=== PATIENT | male | born 1945 | race Caucasian/White ===

== ENCOUNTER 2019-09-06 21:09 | Emergency (ER) | payer OTHER, SELFPAY ==
[2019-09-06 21:10] VITALS: BP 161/73; PULSE 68; RESP 18; TEMP 36.2; O2SAT 96; BMI 34.2
--- NOTE | 2019-09-06 22:02 | ED.VISSUMM ---
- ER Visit Summary Date of Service: 09/06/19 Chief Complaint: Foreign body left ear History of Present Illness: The patient is a 74 M history of stroke and coronary disease with a stent. Patient uses hearing aids. He was changing his hearing aid and a piece of the hearing aid stayed in the ear canal. They were unable to get out and he came in the emergency department to have it removed. He denies any pain. Physical Examination: Male coming by his vital signs stable afebrile. H EENT exam unremarkable except left ear canal has a piece of rubber clear that appears to be piece of the hearing aid. The canal otherwise unremarkable. Otherwise exam is unremarkable. Lungs are clear. Heart regular rhythm. Abdomen soft nontender. He is moving all 4 extremities. Test Results: None Emergency Department Course and Treatment: Left ear foreign body. I tried to irrigate it out but the foreign body was either rubber or plastic and it basically had holes in it and fluids would not push it out. I then tried to grab it with forceps and was unable to do so. I was able to get an ear spoon on top of the foreign body was able to pull it out. Patient tolerated procedure well. There was a small amount of blood in his canal there appear to be from the wall of the ear canal. The eardrum was unremarkable. No perforation was seen. Treatment Plan: Follow-up with his doctor as needed. Watch for any signs of infection. Disposition: Discharge Impression: Left ear canal foreign body (rubber piece of a hearing aid) removed by ER physician This note was generated with [employer] dictation software. It may contain incorrect words, spelling, and punctuation that were not noted in review of the chart prior to signing ED Disposition - Plan for ED Patient: [facility] -
--- NOTE | 2019-09-06 22:04 | ED.DEP ---
ED Disposition - Plan for ED Patient: Disposition: Home or Assisted Living [facility] [Primary Care Provider] - As Needed Additional Instructions: Watch for any signs of infection such as redness, swelling or discharge. If these develop return or follow-up with your doctor.
[2019-09-06 22:23] VITALS: RESP 16
== END 2019-09-06 22:32 | disposition home or self-care (01) ==
LOC: ED 22:28
PROVIDERS: Emergency Provider Emergency Medicine
DX: T16.2XXA Foreign body in left ear, initial encounter (principal); Z86.73 Personal history of transient ischemic attack (TIA), and cerebral infarction without residual deficits; Z95.5 Presence of coronary angioplasty implant and graft; I25.10 Atherosclerotic heart disease of native coronary artery without angina pectoris; W45.8XXA Other foreign body or object entering through skin, initial encounter; Y92.9 Unspecified place or not applicable; Y99.9 Unspecified external cause status
CPT/HCPCS: 99282

== ENCOUNTER 2020-01-10 10:44 | Emergency (ER) | payer OTHER, SELFPAY ==
[2020-01-10 10:45] VITALS: BP 146/69; PULSE 89; RESP 18; TEMP 35.7; O2SAT 96; BMI 35.9
--- NOTE | 2020-01-10 11:40 | ED.VIS.GEN ---
History of Present Illness <KayLane - Last Filed: 01/10/20 12:15> Informant: Patient, Significant Other Onset: Days - 2 days Context: Gradual Onset Timing: Continuous Quality: aching Location: roof of mouth Current Severity: Moderate Maximum Severity: Severe Worsened by: eating Relieved by: nothing Associated Symptoms: dental pain Narrative: 74-year-old male history of coronary artery disease and aortic valve replacement currently on Coumadin presents to the emergency department with pain and swelling on the roof of his mouth. He is also having pain in his teeth. He is concerned for an infection. He has no fever he has not had any difficulties breathing or swallowing or any difficulties opening closing his mouth. No trauma. Denies any other review of systems at this time. Denies vomiting or diarrhea Prior similar symptoms: No Recent Illness/Hospitalization: No <Iker Singh - Last Filed: 01/10/20 12:19> Chief Complaint: Edema Past Medical History <KayLane - Last Filed: 01/10/20 12:15> Past Medical History: - - Coronary artery disease, aortic valve replacement, hypertension, hyperlipidemia, anticoagulation therapy Surgical History: cholecystectomy, - - Aortic valve surgery 2001 Lives: With Family Smoking Status: Former smoker Alcohol: None Drugs: None - Family History Paternal Family History: Reports: Cancer, Diabetes Additional Family History: no FH for kidney disease <Iker Singh - Last Filed: 01/10/20 12:19> - Allergies and Home Meds Allergies/Adverse Reactions: Allergies hydrocodone bitartrate [From Vicodin] Allergy (Verified 01/10/20 10:46) Other Primary Care Physician: [facility] [Primary Care Provider] - Review of Systems All systems negative except as indicated General: Denies: Chills, Fever, Sweats Eyes: Denies: Visual changes - bilaterally, Diplopia ENT: Reports: - - dental pain. Denies: Rhinorrhea, Sore throat Cardiovascular: Denies: Chest pain, Palpitations Respiratory: Denies: Dyspnea, Cough, Dyspnea on exertion Gastrointestinal: Denies: Abdominal pain, Nausea, Vomiting, Diarrhea, Melena, Hematochezia Genitourinary: Denies: Dysuria, Hematuria, Frequency Musculoskeletal: Denies: Back pain, Extremity Pain Skin: Denies: Rash, Wounds Neurological: Denies: Headache, Weakness, Numbness <Iker Singh Last Filed: 01/10/20 12:19> Physical Exam Vital Signs/Narrative: Vital Signs Temp Pulse Resp BP Pulse Ox 01/10/20 10:45 96.3 F L 89 18 146/69 H 96 <Lane Villanueva - Last Filed: 01/10/20 12:15> Vital Signs/Narrative: Vital Signs Temp Pulse Resp BP Pulse Ox 01/10/20 10:45 96.3 F L 89 18 146/69 H 96 Inital Vital Signs reviewed: Yes General: Well nourished, Well developed, No Acute Distress Head: Normocephalic, Atraumatic Eyes: Perrl, EOMI ENT: Moist mucous membranes, No rhinorrhea, - - Patient has what appears to be an early abscess on the roof of his mouth. It is not fluctuant. He does have widespread dental decay. No focal dental abscess. No sublingual edema or trismus. He has a normal voice and no drooling. Neck: Supple, Nontender Cardiovascular: Regular rate, Regular rhythm, No murmurs Respiratory: No distress, CTA bilaterally, Chest nontender Abdomen: Soft, Nontender, Nondistended, Normal bowel sounds Back: Nontender, Normal Inspection Extremities: Nontender, No edema Skin: Normal color, No rash Neurological: Alert, Oriented x3, Cranial nerves II-XII grossly intact, Normal Strength, Normal Sensation Psychological: Normal affect, Normal Mood <Iker Singh - Last Filed: 01/10/20 12:19> Diagnostic/Tx/Re-eval - Medical Decision Making I supervised the PA and have performed my own pertinent history and physical. Results and treatment plan were discussed. HPI: Patient complains of pain and swelling to the roof of his mouth began 2 days ago. States that he is having dental pain as well. He is taken gabapentin without relief. He has a history of an mechanical aortic valve and is on Coumadin. Reports that his INR on Monday was 2.3. PE: Vitals: Stable. Afebrile. Mouth: No trismus. No edema of the floor of the mouth. Pain with percussion of right maxillary central incisor. There is soft tissue swelling to the roof of his mouth, but no focal abscess. He also has mild swelling to his right cheek. General: A&O x 3. NAD. Cardiovascular exam: Regular rate and rhythm with a 2 out of 6 stock murmur mechanical valve click. Respiratory exam: Clear to auscultation bilaterally. No wheezes or stridor. Abdominal exam: Soft, nontender, nondistended, normal bowel sounds. No peritoneal signs. Extremity: No clubbing, cyanosis, or edema. Emergency Department course: Patient was treated with [place] and penicillin. Treatment Plan: Patient will be discharged on [place] and penicillin. Instructed to hold his Coumadin for the next 2 days. Get his INR measured again on Monday and speak with his doctor about further dosing of his Coumadin. Follow-up with his dentist as soon as possible. This note was generated with [employer] dictation software. It may contain incorrect words, spelling, and punctuation that were not noted in review of the chart prior to signing. <Lane Villanueva - Last Filed: 01/10/20 12:15> Laboratory Tests 01/10/20 Range/Units 11:55 PT 30.0 H (11.7-14.9) SECONDS INR 2.9 <Iker Singh - Last Filed: 01/10/20 12:19> ED Disposition <Lane Villanueva - Last Filed: 01/10/20 12:15> <Iker Singh - Last Filed: 01/10/20 12:19> - Plan for ED Patient: Disposition: Home or Assisted Living Diagnosis: Dental abscess, Hx of aortic valve replacement, mechanical, Anticoagulation monitoring, INR range 2.5-3.5 Instructions: ED ABSCESS DENTAL Prescriptions: Penicillin V Potassium 500 mg PO 4X/DAY #40 tab Prescription Printed Oxycodone HCl/Acetaminophen [Percocet 5/325] 1 tab PO Q6H PRN PRN 3 Days #12 tab PRN Reason: Pain Prescription Printed Referrals: [facility] [Primary Care Provider] - 01/13/20 Additional Instructions: Please follow-up with your doctor at the [facility] Monday for a recheck of your INR for your Coumadin level. Please do not take your Coumadin today which is Monday or Monday. Please resume your normal dose starting Monday.
[2020-01-10] MEDS: oxyCODONE 5 MG Tablet PO (11:54)
[2020-01-10 12:08] LABS: International Normalized Ratio 2.9
[2020-01-10 12:34] VITALS: BP 147/62; PULSE 68; RESP 18; O2SAT 93
== END 2020-01-10 12:41 | disposition home or self-care (01) ==
PROVIDERS: Emergency Provider Physician Assistant Medical
DX: K04.7 Periapical abscess without sinus (principal); Z79.01 Long term (current) use of anticoagulants; Z95.2 Presence of prosthetic heart valve; E78.5 Hyperlipidemia, unspecified; I10 Essential (primary) hypertension; I25.10 Atherosclerotic heart disease of native coronary artery without angina pectoris; Z87.891 Personal history of nicotine dependence; Z88.5 Allergy status to narcotic agent; Z90.49 Acquired absence of other specified parts of digestive tract
CPT/HCPCS: 85610; 99283

== ENCOUNTER → 2020-01-13 12:04 | Outpatient (CLI) | payer OTHER, SELFPAY ==
[2020-01-10 10:45] VITALS: BMI 35.9
== END ==
PROVIDERS: Referring Provider Physician Assistant Medical; Visit Provider Physician Assistant Medical
DX: M47.26 Other spondylosis with radiculopathy, lumbar region (principal)

== ENCOUNTER 2020-02-17 13:30 | Outpatient (RCR) | payer OTHER, SELFPAY ==
--- NOTE | 2020-01-13 13:48 | HP.PTEVAL_ITS ---
Patient's Visit Information EDDIE KHALIL is a 74 year old M referred to Physical Therapy by GUIDO VAZQUEZ with a diagnosis of LUMBAR RADICULOPATHY. Date of Evaluation: 01/13/20 Physical Therapist: Leobardo Enriquez, PT, Cert MDT, OCS - Visit Plan Frequency: 2x /Week Duration: 7WEEKS Plan: PT INTERVENTIONS AQAUTIC THERAPY FOR LUMBAR ROM,LE STRENGTHENING/ROM ,DLS ABD/BACK ,POSTURAL EX'S - Subjective This 74 y/o male presents to physical theerapy lumbar radiculopathy. Patient has had lumbar pain with radicular symptoms many year. Patient seen DR recommended PT with DJD and severe osteopenia along with hip left OA. Location of back pain left LS region. Aggraveting factors elevation of chair,extended walkking,bending lifting,standing. Alleviating factors rest. Patient has seen pain management recommeded pain MEDS.Bowel/bladder -.Coughing/sneezing -. Denies parathesia/tingling-. Patient symptoms affects ADLS' and housework tasks. Patient symptoms affects QOL. SOCAIL: . VOCATION: retired - Pain Left Back Pain Intensity (Out of 10): 6 Pain Intensity Range: 10 Left Hip Pain Intensity (Out of 10): 10 Pain Intensity Range: 10 Comment: walking - Objective POSTURE: mild foward posture hip/knees ,mild/mod thoracic kyphosis. GAIT: reciprocal apttern antalgic gait mild foward posture. NEURO: denies parathesia/tingling,reflexes L3-4,L4-5,L5-S1 1/3. SYMMTRIES: align. PALPATION: tendeR L-S. AROM: hip flexion 90 degrees ,IR 0 degrees,ER 25 degrees, hip abd 30 degrees. MMT: quads/hams 4-/5,hip abd 3+/5,hip flexion 3+/5 ankle 4/5. LUMBAR ROM: flexion mod loss,extension mod/severe,side glides mod loss. FLEXABILITY: hams mod tight - Special Tests L/S Slump test left side: Negative L/S Slump test right side: Negative L/S Left Straight Leg Raise: Negative L/S Right Straight Leg Raise: Negative - Goals Goal 1:: Patient to be I with Aquatic PT Goal Time Frame: 4-6 Weeks Goal 2:: Patient to inmprove lumbar ROM for function of recovery. Goal Time Frame: 4-6 Weeks Goal 3:: Patient to decrease lumbar and leg pain by 50% or > to improve function with walking. Goal Time Frame: 4-6 Weeks Goal 4:: Patient increase quads/hams 4/5 and hip stength to 4-/5 to improve function. Goal Time Frame: 4-6 Weeks Goal 5:: Patient to improve back owestry score by 5 points or > to improve QOL. Goal Time Frame: 4-6 Weeks - Rehabilitation Potential Physical Therapy Diagnosis: Patient has lumbar pain with radiculaopathy along with hip DJD and osteoprosis and h/o bilateral hip ORIF with pain ,impaired gait ,decrease lumbar ROM,weakness in legs thus benifit from skilled PT Rehabilitation Potential: Good - Anticipated Interventions Patient/Client Instruction: Educate patient on: Condition, Plan of Care For the Purpose of:: To decrease pain, To increase ROM, To improve muscle performance and motor function, To increase tolerance to activity/condition/position, To improve performance and independence with ADL's, To improve ability of physical actions for home/community/work/leisure, To improve gait and locomotor functions, To improve health of tissue, To decrease soft tissue restriction, To increase flexibility/ROM, To reduce risk of r ecurrence, To improve health and function, To improve ability to perform tasks related to life management Therapeutic Exercise to Include: Strength training, Endurance training, Balance training, Postural training, Flexibilty training, In an aquatic setting, Passive ROM, Active ROM, Dynamic Lumbar Stabilization For the Purpose of:: To decrease pain, To increase ROM, To improve muscle performance and motor function, To improve ability to perform ADL's, To increase tolerance to activity/condition/position, To improve ability of physical actions for home/community/work/leisure, To improve gait and locomotor functions, To improve health of tissue, To decrease soft tissue restriction, To increase flexibility/ROM, To improve endurance, To improve balance, To improve ability to perform tasks related to life management Thank you for the opportunity to evaluate your patient. For Medicare and Medicare HMO plans, please review the plan of care and approve it. It will need to be FAXED BACK to us at [phone] for Medicare purposes. For Medicare only, by signing this I certify the plan of care. Please let me know if there are questions or concerns regarding this plan of care. Physician Signature: Date:
--- NOTE | 2020-02-17 14:06 | HP.PTDCSUM ---
It has been my pleasure to treat EDDIE KHALIL referred by GUIDO VAZQUEZ, with the diagnosis of LUMBAR RADICULOPATHY for a total of 11 visit(s). Discharge Date: 02/17/20 Please see the following information for a summary of their discharge status. Subjective: Patient said Water ex;s caused pain in left hip.Plan to RTD.. Patient reports back pain is alot better. Pain management in [facility]. Able to stand longer Left Back Pain Intensity (Out of 10): 0 Left Hip Pain Intensity (Out of 10): 6 % Improvement: 50 Objective/Function: POSTURE: mild foward posture. GAIT: anatalgic gait decrease stance time LLE. NEURO: denies parathesia/tingling. MMT: quads/hams 4/5 ,anklle 4/5,hip flexion 4-/5,hip abd 3+/5. LUMBAR ROM: FLEXION MIN/MOD LOSS,EXTENDION MOD LOSS Goal 1:: Patient to be I with Aquatic PT Goal Progress: Goal Met Goal 2:: Patient to inmprove lumbar ROM for function of recovery. Goal Progress: Goal Met Goal 3:: Patient to decrease lumbar and leg pain by 50% or > to improve function with walking. Goal Progress: Progressing Goal 4:: Patient increase quads/hams 4/5 and hip stength to 4-/5 to improve function. Goal 5:: Patient to improve back owestry score by 5 points or > to improve QOL. Goal Progress: Progressing Plan: D/C TO [facility]. PATIENT HAS MORE CONCERNED WITH HIP Discharge Comments: rtd If there are questions or concerns regarding this patient's physical therapy, please feel free to call me at [phone]. Thank you for the referral of this patient. Sincerely, Leobardo Enriquez, PT, Cert MDT, OCS
== END 2020-02-17 19:00 | disposition home or self-care (01) ==
LOC: PT 13:30
DX: M47.26 Other spondylosis with radiculopathy, lumbar region (principal)
CPT/HCPCS: 97113; 97162; 97530

== ENCOUNTER 2022-07-09 23:13 | Emergency (ER) | payer OTHER, SELFPAY ==
--- NOTE | 2022-07-09 00:30 | RAD_ITS ---
STUDY: X-RAY CHEST REASON FOR EXAM: Male, 76 years old patient with cough. TECHNIQUE: PA and lateral views of the chest. COMPARISON: CT of the chest dated April 03, 2016. FINDINGS: The patient has had a sternotomy. Lungs are hyperexpanded. There is prominence of bronchovascular markings. There is no demonstrated pleural abnormality. There is mild cardiac enlargement. Patient has cardiac valve prosthesis. Normal mediastinum and cata. Normal visualized pulmonary arteries. There is atherosclerotic calcification of the aortic arch with tortuosity. There is demineralization of the osseous structures. 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 There is degenerative arthropathy of the left shoulder. There is no demonstrated abnormality of the visualized soft tissue structures of the upper abdomen. RAD/Chest PA and Lateral IMPRESSION: Cardiomegaly and mild pulmonary congestion. Electronically Signed: Arianna Brown MD at 1:26 EST ,
[2022-07-09 23:14] VITALS: BP 153/77; PULSE 86; RESP 24; TEMP 37.1; O2SAT 93; BMI 36.2
[2022-07-09 23:16] VITALS: BP 153/77; PULSE 86; RESP 24; TEMP 37.1; O2SAT 93
[2022-07-09 23:50] VITALS: PULSE 90; RESP 20; RESP 24; O2SAT 92
[2022-07-09] MEDS: Ipratropium/Albuterol Sulfate 3 ML AMPUL.NEB INHALATION (23:50)
[2022-07-10 00:21] LABS: Absolute Lymphocyte Count 0.79 X10^3/uL (0.83-4.51); Absolute Neutrophil Count 8.4 X10^3/uL (2.0-7.7); Basophil# 0.12 X10^3/uL; Basophil% 1.2 % (0-1); Eosinophil# 0.09 X10^3/uL; Eosinophils% 0.9 % (0-5); Hematocrit 41.7 % (40-54); Hemoglobin 13.3 g/dL (13.0-16.5); Lymphocyte # 0.79 X10^3/ul (0.83-4.51); Lymphocyte % 7.6 % (19-41); Mean Corp Hgb Conc 31.9 g/dL (32-36); Mean Corpuscular Hgb 28.4 pg (27.0-32.0); Mean Corpuscular Volume 89.1 fL (80-94); Mean Platelet Vol. 10.8 fl (6.2-12.0); Monocyte# 0.47 X10^3/uL; Monocyte% 4.5 % (0-10); NRBC Flagged by Analyzer 0 % (0-5); Neutrophil # 8.43 X10^3/uL (2.7-7.7); Neutrophil % 81.4 % (47-70); Platelet Count 176 K/mm3 (150-450); RBC Distribution Width CV 15.9 % (11.6-14.6); RBC Distribution Width SD 52.7 fl (35.1-43.9); Red Blood Count 4.68 M/mm3 (4.6-6.2); White Blood Count 10.4 K/mm3 (4.4-11.0)
[2022-07-10 00:31] LABS: International Normalized Ratio 2.2; Prothrombin Time (Protime)PT. 23.9 SECONDS (11.7-14.9)
[2022-07-10 00:43] LABS: Anion Gap 7 (5-15); BUN 11 mg/dL (7-18); BUN/Creat Ratio 14.1 RATIO (10-20); Calcium,Total 8.7 mg/dL (8.5-10.1); Chloride 102 mmol/L (98-107); Creatinine, Serum 0.78 mg/dL (0.70-1.30); EST Glomerular Filtration Rate 103 mL/min (>60); Est Glom Filt Rate - Afr Amer 125 mL/min (>60); Estimated Creatinine Clearance 64.89 ml/min; Glucose 100 mg/dL (74-106); Magnesium 1.7 mg/dL (1.6-2.6); Potassium 4.3 mmol/L (3.5-5.1); Sodium Level 137 mmol/L (136-145)
[2022-07-10 00:45] LABS: BNP,B-Type NATRIURETIC PEPTIDE 216.2 pg/mL (0-100)
--- NOTE | 2022-07-10 03:21 | EDS_ITS ---
HPI History of Present Illness Chief Complaint: Cough Narrative Narrative: Patient is a 76-year-old male with past medical history of hypertension coronary artery disease and mechanical aortic valve replacement. He states that he has had some congestion and cough for the past 3 or 4 days and today spiked a fever of 100.1 at home. He states that because of his persistent symptoms now development of fever he is concerned he is developing an infection and therefore comes in for evaluation. The patient denies any known sick contacts and he denies any history of lung disorder such as COPD or emphysema or need for supplemental oxygen PFSH PFS Home Medications cholecalciferol (vitamin D3) 25 mcg (1,000 unit) tablet (Vitamin D3) 1,000 unit PO DAILY 04/03/16 [History Last Taken 04/04/16 08:00] oxycodone-acetaminophen 5 mg-325 mg tablet 1 - 2 tab PO Q4H PRN PRN Pain #15 tabs 04/03/16 [Rx Last Taken Unknown] warfarin 4 mg tablet (Jantoven) 8 mg PO SUTUWETHFRSA 04/03/16 [History Last Taken 04/03/16 17:00 4 mg] allopurinol 100 mg tablet 100 mg PO DAILYCM 04/04/16 [History Last Taken 04/04/16 08:00 100 mg] atorvastatin 40 mg tablet 80 mg PO DAILY 04/04/16 [History Last Taken 04/04/16 08:00 40 mg] cyanocobalamin (vitamin B-12) 1,000 mcg tablet 1,000 mcg PO DAILY 04/04/16 [History Last Taken 04/04/16 08:00 1000 mcg] ferrous sulfate 325 mg (65 mg iron) tablet 325 mg PO TIDCM 04/04/16 [History Last Taken 04/04/16 08:00 325 mg] isosorbide mononitrate 30 mg tablet,extended release 24 hr 30 mg PO DAILY 04/04/16 [History Last Taken 04/04/16 08:00 30 mg] levothyroxine 25 mcg tablet 50 mcg PO DAILY 04/04/16 [History Last Taken 04/04/16 06:00 25 mcg] metoprolol tartrate 25 mg tablet 12.5 mg PO BID 04/04/16 [History Last Taken 04/04/16 08:00 12.5mg] pantoprazole 40 mg tablet,delayed release 40 mg PO BID 04/04/16 [History Last Taken 04/04/16 08:00 40 mg] gabapentin 300 mg capsule 300 mg PO BID 01/10/20 [History Last Taken Unknown] tamsulosin 0.4 mg capsule 0.4 mg PO DAILY 07/09/22 [History Last Taken Unknown] warfarin 4 mg tablet 4 mg PO MO 07/09/22 [History Last Taken Unknown] furosemide 20 mg tablet (Lasix) 20 mg PO DAILY #14 tabs 07/10/22 [Rx Last Taken Unknown] Allergy/AdvReac Type Severity Reaction Status Date / Time hydrocodone bitartrate Allergy Other Verified 01/10/20 10:46 [From Vicodin] Social History Smoking Status: Former smoker ROS ROS ED Constitutional Constitutional ED: Reports fever(s); Denies chills ENT ENT ED: Reports rhinorrhea; Denies sore throat Cardiovascular Cardiovascular: Denies chest pain Respiratory/Chest Respiratory/Chest: Reports cough and dyspnea Gastrointestinal Gastrointestinal: Denies abdominal pain, diarrhea, nausea or vomiting Genitourinary Genitourinary ED: Denies dysuria Musculoskeletal Musculoskeletal: Denies myalgias Integumentary Denies rash Neurologic Neurologic: Denies headache(s) Hematologic/Lymphatic Hematologic/Lymphatic: Reports easy bleeding and easy bruising EXAM Physical Exam Const Vital Signs: 07/09/22 23:14 07/09/22 23:16 07/09/22 23:21 Temperature 98.7 F 98.7 F Temperature Source Temporal Temporal Pulse Rate 86 86 Respiratory Rate 24 H 24 H Respiratory Effort Short of Breath Respiratory Depth Shallow Respiratory Pattern Tachypnea Blood Pressure 153/77 H 153/77 H Blood Pressure Mean 102 102 Pulse Ox 93 93 Oxygen Delivery Method Room Air Room Air Room Air 07/09/22 23:50 07/09/22 23:50 Temperature Temperature Source Pulse Rate 90 Respiratory Rate 20 H 24 H Respiratory Effort Normal Non-Labored Short of Breath Respiratory Depth Shallow Respiratory Pattern Normal Tachypnea Blood Pressure Blood Pressure Mean Pulse Ox 92 Oxygen Delivery Method Room Air Positive well nourished, well developed and obese General Appearance ED: well developed and pallor Nutritional Appearance: obese HEENT Reports moist mucous membranes HEENT Narrative: There is cobblestoning noted in the posterior pharynx consistent with sinus drainage and nasal mucosa is hyperemic and boggy with enlarged inferior nasal turbinates There is no tongue or lip swelling noted. No oral lesions. No airway edema or compromise Eyes PERRL and EOMs intact bilaterally Neck supple and no JVD Resp normal respiratory effort Resp Narrative: Breath sounds are diminished throughout with diffuse rhonchi and faint expiratory wheeze noted in the bilateral bases. There is slight tachypnea present but otherwise no nasal flaring or retractions or accessory muscle use Cardio regular rate and regular rhythm Rate: other Other Details: Radial pulses are plus 2 out of 4 bilaterally are equal and symmetric GI normal to inspection, nondistended, normoactive bowel sounds, non-tender, non- distended and no masses GI Narrative: No voluntary guarding or rigidity no pulsatile mass or fluid wave Auscultation: normoactive bowel sounds Palpation: soft Extremity Extremity Narrative: Patient has +3 pitting edema to the bilateral lower extremities that is equal and symmetric with negative Homans' sign Neuro oriented x3 and CN's II-XII intact bilaterally Sensorium / Orientation: alert Psych mental status grossly normal Skin no rashes or lesions noted General Skin Exam: pallor MDM MDM MDM Narrative Medical decision making narrative: Patient presented to the ER afebrile despite reporting a fever of 100.1 at home. He states he has no history of lung disorder and does not require supplemental oxygen and his pulse ox in room air is 93%. He does have congestion and drain age as well as rhonchi and wheeze concerning for development of infection. There is no JVD despite his leg swelling and I do not hear crackles and therefore concern for congestive heart failure exacerbation is low. Because of the concern for infection I did elect to perform a basic work-up. White count is normal patient is not anemic and there are no electrolyte derangements. His INR is 2.2 which is near therapeutic range for his history of aortic valve replacement and my concern for PE is low as he does not have any pleuritic chest pain and he has coarse breath sounds. The patient's chest x-ray revealed mild cardiomegaly with mild vascular congestion which fits the slight elevation to his proBNP. However there is no significant pleural effusion or signs of infection and COVID and influenza tests are negative. Patient was ambulated in the department and his pulse ox remained the same. Therefore at this time as he does not have need for supplemental oxygen at rest nor does he desat with ambulation I do not feel there is need for admission. As there is no signs of acute bacterial infection with elevated white count or signs of pneumonia on x- ray does not require antibiotic. I do feel with his report of fever at home that symptoms are most likely viral in nature but as he does have mild vascular congestion on x-ray and slight elevation to his proBNP I will place him on a short course of low-dose Lasix to see if this helps improve symptoms. The plan of care was discussed with the patient and family and both are agreeable to the History & Record Review Discussion w/independent historian: Patient and Family Lab Data Attestation: I reviewed the patient's lab results. Labs: Laboratory Results - last 24 hr 07/10/22 07/10/22 07/10/22 00:06 00:06 00:06 WBC 10.4 RBC 4.68 Hgb 13.3 Hct 41.7 MCV 89.1 MCH 28.4 MCHC 31.9 L RDW Std Deviation 52.7 H RDW Coeff of Clement 15.9 H Plt Count 176 MPV 10.8 Immature Gran % (Auto) 4.400 H Neut % (Auto) 81.4 H Lymph % (Auto) 7.6 L [place] % (Auto) 4.5 Eos % (Auto) 0.9 Baso % (Auto) 1.2 H Absolute Neuts (auto) 8.4 H Absolute Lymphs (auto) 0.79 L Nucleated RBC % 0 PT 23.9 H INR 2.2 Sodium 137 Potassium 4.3 Chloride 102 Carbon Dioxide 28.0 Anion Gap 7 BUN 11 Creatinine 0.78 Estim Creat Clear Calc 64.89 Est GFR (MDRD) Af Amer 125 Est GFR (MDRD) Non-Af 103 BUN/Creatinine Ratio 14.1 Glucose 100 Calcium 8.7 Magnesium 1.7 B-Natriuretic Peptide 07/10/22 00:06 WBC RBC Hgb Hct MCV MCH MCHC RDW Std Deviation RDW Coeff of Clement Plt Count MPV Immature Gran % (Auto) Neut % (Auto) Lymph % (Auto) [place] % (Auto) Eos % (Auto) Baso % (Auto) Absolute Neuts (auto) Absolute Lymphs (auto) Nucleated RBC % PT INR Sodium Potassium Chloride Carbon Dioxide Anion Gap BUN Creatinine Estim Creat Clear Calc Est GFR (MDRD) Af Amer Est GFR (MDRD) Non-Af BUN/Creatinine Ratio Glucose Calcium Magnesium B-Natriuretic Peptide 216.2 H Radiography Diagnostic Testing: Clinical Impression(s) from Imaging Studies Chest X-Ray 07/09/22 00:30 IMPRESSION: Cardiomegaly and mild pulmonary congestion. 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 Instructions: ED Dyspnea, ED Viral Syndrome (Adult) Prescriptions: New furosemide [Lasix] 20 mg tablet 20 mg PO DAILY Qty: 14 0RF No Action warfarin [Jantoven] 4 MG tablet 8 mg PO SUTUWETHFRSA cholecalciferol (vitamin D3) [Vitamin D3] 1,000 UNIT tablet 1,000 unit PO DAILY oxycodone-acetaminophen 1 TABLET tablet 1 - 2 tab PO Q4H PRN PRN (Reason: Pain) Qty: 15 0RF atorvastatin 40 MG tablet 80 mg PO DAILY isosorbide mononitrate 30 MG tablet 30 mg PO DAILY Label Comments: Heart cyanocobalamin (vitamin B-12) 1,000 MCG tablet 1,000 mcg PO DAILY allopurinol 100 MG tablet 100 mg PO DAILYCM levothyroxine 25 MCG tablet 50 mcg PO DAILY pantoprazole 40 MG tablet 40 mg PO BID Label Comments: stomach ferrous sulfate 325 MG tablet 325 mg PO TIDCM metoprolol tartrate 25 MG tablet 12.5 mg PO BID gabapentin 300 MG capsule 300 mg PO BID warfarin 4 mg Tablet 4 mg PO MO tamsulosin 0.4 mg capsule 0.4 mg PO DAILY Label Comments: Take 1 capsule by mouth once a day Primary Care Provider: [facility] [facility]errals[facility] [Primary Care Provider] - Activity Restrictions/Additional Instructions: As she reported a low-grade fever at home and had mild wheezes on your initial exam I do feel your symptoms are related to a viral upper respiratory infection. This will typically take 2 to 3 weeks to resolve. However as your x-ray did show mild vascular congestion please take the water pill/diuretic to help with this and return to the ER should you have any further concerns or worsening of symptoms Disposition Disposition: Home, Self Care
[2022-07-10 03:36] VITALS: BP 150/77; PULSE 74; RESP 15; O2SAT 98
== END 2022-07-10 03:47 | disposition home or self-care (01) ==
PROVIDERS: Emergency Provider Emergency Medicine; Visit Provider Emergency Medicine
DX: B34.9 Viral infection, unspecified (principal); I10 Essential (primary) hypertension; Z87.891 Personal history of nicotine dependence; Z79.01 Long term (current) use of anticoagulants; R06.00 Dyspnea, unspecified; E66.9 Obesity, unspecified; R05.9 Cough, unspecified; R23.3 Spontaneous ecchymoses; I25.10 Atherosclerotic heart disease of native coronary artery without angina pectoris; Z95.2 Presence of prosthetic heart valve
CPT/HCPCS: 71046; 80048; 83735; 83880; 85025; 85610; 87428; 94640; 99252; 99283; J7030; A4216; G0463

== ENCOUNTER 2023-01-13 06:55 | Day surgery (SDC) | payer OTHER, SELFPAY ==
[2023-01-13] VITALS (7 sets, daily range): BP systolic 118–149; BP diastolic 60–85; PULSE 71–80; RESP 16–18; TEMP 36.1–36.6; O2SAT 93–98; BMI 33.8
[2023-01-13 07:27] LABS: INR Fingerstick 1.3; Prothrombin Time Fingerstick 14.9 SEC (11.7-14.9)
[2023-01-13] MEDS: Lactated Ringers 1,000 ML 15 ML IV (07:31)
--- NOTE | 2023-01-13 07:48 | HP.PCM_ITS ---
History and Physical Date of Admission: 01/13/23 Intake Vital Signs 07/09/2322:14 12/29/2312:32 Height 5 ft 10 in 5 ft 10 in Weight: 238 lb 8 oz BMI 34.2 BP 148/88 H Blood Pressure Location Rt brachial Position Sitting Respiration 16 Pulse 84 Pulse Source Monitor Temp 96.2 F L Temp Source Temporal Intake Visit Reasons: COLONOSCOPY FOR DIARRHEA Chief Complaint: COLONOSCOPY Allergies hydrocodone bitartrate [From Vicodin] Allergy (Verified 12/29/22 13:37) Other Medications cholecalciferol (vitamin D3) 25 mcg (1,000 unit) tablet (Vitamin D3) 1,000 unit PO DAILY 04/03/16 [History Confirmed 12/29/22] oxycodone-acetaminophen 5 mg-325 mg tablet 1 - 2 tab PO Q4H PRN PRN Pain #15 tabs 04/03/16 [Rx Confirmed 12/29/22] warfarin 4 mg tablet (Jantoven) 8 mg PO SUTUWETHFRSA 04/03/16 [History Confirmed 12/29/22] allopurinol 100 mg tablet 100 mg PO DAILYCM 04/04/16 [History Confirmed 07/09/22] atorvastatin 40 mg tablet 80 mg PO DAILY 04/04/16 [History Confirmed 12/29/22] cyanocobalamin (vitamin B-12) 1,000 mcg tablet 1,000 mcg PO DAILY 04/04/16 [History Confirmed 12/29/22] ferrous sulfate 325 mg (65 mg iron) tablet 325 mg PO TIDCM 04/04/16 [History Confirmed 12/29/22] isosorbide mononitrate 30 mg tablet,extended release 24 hr 30 mg PO DAILY 04/04/16 [History Confirmed 12/29/22] levothyroxine 25 mcg tablet 50 mcg PO DAILY 04/04/16 [History Confirmed 12/29/22] metoprolol tartrate 25 mg tablet 12.5 mg PO BID 04/04/16 [History Confirmed 12/29/22] pantoprazole 40 mg tablet,delayed release 40 mg PO BID 04/04/16 [History Confirmed 12/29/22] gabapentin 300 mg capsule 300 mg PO BID 01/10/20 [History Confirmed 12/29/22] tamsulosin 0.4 mg capsule 0.4 mg PO DAILY 07/09/22 [History Confirmed 12/29/22] warfarin 4 mg tablet 4 mg PO MO 07/09/22 [History Confirmed 12/29/22] furosemide 20 mg tablet (Lasix) 20 mg PO DAILY #14 tabs 07/10/22 [Rx Confirmed 12/29/22] PFSH Medical History (Updated 12/29/22 @ 14:[address] Iker Tom MD) Cholecystectomy planned FH: bilateral hip replacements Surgical History (Updated 12/29/22 @ 13:32 by Feli Almanzar) History of open heart surgery Social History Smoking Status: Former smoker HPI HPI HPI: Patient is a 77-year-old male sent here by the [facility] for colonoscopy. Patient reports no abdominal pain. He says that he goes a few days without having a bowel movement and is very hard to pass and then he has diarrhea for the next entire day. He says it has been going on for several years. He says his last colonoscopy was 9 years ago. The only report I got back was from 2008. ROS General General: No weight change, appetite, fatigue, colon cancer, breast cancer or weakness HEENT HEENT: Yes difficulty swallowing; No eye injury, eye surgery, swollen glands or hoarseness Endo Endocrine: No thyroid disease, diabetes mellitus, thyroid cancer, Hair loss, heat intolerance or cold intolerance Skin Skin: No rash or changing moles Breast Breast: No left breast lump, right breast lump, nipple discharge, breast pain, abnormal mammogram, abnormal US or breast enlargement Musc Musculoskeletal: Yes arthritis and gout; No back problems, rheumatoid arthritis or joint pain Cardio Cardiovascular: No murmur, pacemaker, heart disease, atrial fibrillation, high blood pressure, heart attack, heart stent, palpitations, shortness of breat with exertion or chest pain Psych Psychiatric: No depression, anxiety or hearing voices Resp Respiratory: No shortness of breath, No sleep apnea, No cough, No COPD, No asthma, No emphysema and No wheezing Gastro Gastrointestinal: No abdominal pain, No nausea or vomiting, No diarrhea, No constipation, No blood in stool, No acid reflux, No hemorrhoids, No ulcers, No gallbladder problem and No black,tarry stools Fredy Hematologic: No blood thinners, No blood disorders, No bleeding, No anemia and No blood clots Neuro Neurologic: No system reviewed and no additional complaints, except as documented, No as per HPI, No abnormal hearing, No abnormal movements, No abnormal speech, No behavioral changes, No burning sensations, No confusion, No convulsions, No disequilibrium, No dizziness, No localized weakness, No frequent falls, No headache(s), No lack of coordination, No loss of vision, No memory loss, No numbness, No other visual disturbances, No radicular pain, No restless legs, No sensory deficit, No syncope, No tingling, No tremor(s), No weakness and Yes other (cva) Exam Const General: cooperative Orientation: alert and oriented x3 HENMT Head: normal to inspection Neck Neck: normal visual inspection and full ROM Chest Chest palpation & inspection: normal inspection of the chest Resp Effort & Inspection: normal respiratory effort Auscultation: clear to auscultation bilaterally Cardio Rate: regular rate Rhythm: regular rhythm GI Inspection: non-distended Palpation: soft and nontender Skin General: no rashes or lesions noted Neuro General: patient alert and patient oriented x3 Extrem General: full ROM Psych Appearance: grossly normal Mental Status: mental status grossly normal Assessment and Plan Assessment and Plan (1) Diarrhea: Status: Acute Qualifiers: Diarrhea type: unspecified type Qualified Code(s): R19.7 - Diarrhea, unspecified Plan: Patient has been having a lot of alternating constipation and diarrhea. His last colonoscopy was at least 9 years ago and he did have polyps. He was recommended for colonoscopy by the CA. Patient is on Coumadin for mechanical heart valve. He says he will talk to his Coumadin clinic and they will prescribe him bridging Lovenox. CA has provided him a bowel prep. I explained endoscopy in detail to the patient. I explained the risks including but not limited to stroke or heart attack with anesthesia, perforation of the GI tract, bleeding, infection. I explained that any of these could necessitate further emergency surgery. The patient understands and all questions were answered sufficiently. The patient wishes to proceed with procedure. Iker Tom MD Pager: [facility] [address] [place] [address], [address] [place] [address] Office: I have examined the patient and the H&P has been reviewed. There are no clinical changes since date of exam.
--- NOTE | 2023-01-13 08:32 | OP.CCLET_ITS ---
01/13/2023 [facility] Re : Colonoscopy procedure for [facility] This procedure was performed on Friday, January 13, 2023. My impressions and recommendations are as follows: Impressions : - The entire examined colon is normal on direct and retroflexion views. - No specimens collected. Recommendations : - Discharge patient to home. - Resume previous diet. - Continue present medications. - Resume Coumadin (warfarin) at prior dose tomorrow. - Repeat colonoscopy is not recommended due to current age (66 years or older) for screening purposes. My findings are described in the full procedure note, which is enclosed. If I can be of further assistance, please feel free to contact me at Doctor phone number(s): , Work: . Sincerely, Iker Tom MD 01/13/2023 8:31:24 AM This report has been signed electronically.
--- NOTE | 2023-01-13 08:32 | OP.COLON_ITS ---
Patient Name: Juaquin Jimenez Procedure Date: 01/13/2023 7:50 AM Date of : 1945 Age: 77 Procedure: Colonoscopy Indications: Change in bowel habits Providers: Iker Tom MD Medicines: Monitored Anesthesia Care Patient Profile: This is a 77 year old male. Refer to note in patient chart for documentation of history and physical. Last Colonoscopy: several years ago. Complications: No immediate complications. Procedure: Pre-Anesthesia Assessment: - Prior to the procedure, a History and Physical was performed, and patient medications and allergies were reviewed. The patient's tolerance of previous anesthesia was also reviewed. The risks and benefits of the procedure and the sedation options and risks were discussed with the patient. All questions were answered, and informed consent was obtained. Prior Anticoagulants: The patient has taken Lovenox (enoxaparin), last dose was 1 day prior to procedure. After reviewing the risks and benefits, the patient was deemed in satisfactory condition to undergo the procedure. After I obtained informed consent, the scope was passed under direct vision. Throughout the procedure, the patient's blood pressure, pulse, and oxygen saturations were monitored continuously. The colonoscope was introduced through the anus and advanced to the cecum, identified by appendiceal orifice and ileocecal valve. The colonoscopy was performed without difficulty. The patient tolerated the procedure well. The quality of the bowel preparation was good. The ileocecal valve, appendiceal orifice, and rectum were photographed. Scope In: 8:04:50 AM Scope Withdrawal Time 0 hours 5 minutes 46 seconds Scope Out: 8:17:08 AM Total Procedure Duration Time 0 hours 12 minutes 18 seconds Findings: The entire examined colon appeared normal on direct and retroflexion views. Impression: - The entire examined colon is normal on direct and retroflexion views. - No specimens collected. Recommendation: - Discharge patient to home. - Resume previous diet. - Continue present medications. - Resume Coumadin (warfarin) at prior dose tomorrow. - Repeat colonoscopy is not recommended due to current age (66 years or older) for screening purposes. Procedure Code(s): --- Professional --- 32664, Colonoscopy, flexible; diagnostic, including collection of specimen(s) by brushing or washing, when performed (separate procedure) Diagnosis Code(s): --- Professional --- R19.4, Change in bowel habit CPT copyright 2021 [employer]. All rights reserved. The codes documented in this report are preliminary and upon labor delivery rn review may be revised to meet current compliance requirements. Iker Tom MD 01/13/2023 8:31:24 AM This report has been signed electronically. Number of Addenda: 0 Note Initiated On: 01/13/2023 7:50 AM
== END 2023-01-13 09:12 | disposition home or self-care (01) ==
LOC: EN 06:56 → AC 06:57
PROVIDERS: Visit Provider Surgery
PROC: 0DJD8ZZ Inspection of Lower Intestinal Tract, Via Natural or Artificial Opening Endoscopic (ICD-10-PCS; CPT 45378; principal; 2023-01-13 07:55)
DX: R19.7 Diarrhea, unspecified (principal); Z87.891 Personal history of nicotine dependence; R19.4 Change in bowel habit; R13.10 Dysphagia, unspecified; Z79.01 Long term (current) use of anticoagulants
CPT/HCPCS: 45378; 36416; 85610; J7120; J2405

== ENCOUNTER 2023-05-18 17:54 | Inpatient (IN) | payer OTHER, SELFPAY ==
[2023-05-18] VITALS (7 sets, daily range): BP systolic 163–183; BP diastolic 66–98; PULSE 65–86; RESP 16–19; TEMP 36.3–37; O2SAT 87–95; BMI 36.3
--- OUTSIDE RECORDS SUMMARY | 2023-05-18 20:49 | XMS RPT_ITS | CCD ---
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 Role Phone Pa Del Cid (Hist) Primary Care Provider Moreno Bob Primary Care Provider [facility] Primary Care Physician Allergies Allergy Classification Reported Allergen(s) Allergy Type Date of Onset Reaction(s) Facility (3 sources) Acetaminophen / HYDROcodone; Translations: [acetaminophen-hyd rocodone] Drug Allergy 6 Shortness of Breath [facility] Medications Current Medications Medication Drug Class(es) Dates Sig (Normalized) Sig (Original) acetaminophen 325 mg oral tablet (2 sources) Start: 02-25-2014 Tylenol 325 mg oral tablet Dose : 650 mg = 2 tab(s), Oral, q4h, PRN as needed for pain, 0 Refill(s) Start Date: 02/25/14 Status: Ordered acetaminophen 325 mg / oxyCODONE hydrochloride 5 mg oral tablet (2 sources) Opioid Agonist Start: 04-22-2021 End: 04-27-2021 take 1 tablet by mouth every four hours as needed for pain Percocet 5 mg-325 mg oral tablet Dose = 1 tab(s), Oral, q4h, PRN for pain, # 15 tab(s), 0 Refill(s), Open multiple fractures of hand bones, 116 Start Date: 04/22/21 Stop Date: 04/27/21 Status: Ordered allopurinol 100 mg oral tablet (2 sources) Xanthine Oxidase Inhibitor Start: 02-25-2014 allopurinol 100 mg oral tablet Dose : 100 mg = 1 tab(s), Oral, qDay, 0 Refill(s) Start Date: 02/25/14 Status: Ordered ascorbic acid 250 mg oral tablet (2 sources) Vitamin C Start: 02-25-2014 Vitamin C 250 mg oral tablet Dose : 250 mg = 1 tab(s), Oral, TID, 0 Refill(s) Start Date: 02/25/14 Status: Ordered Aspirin (2 sources) Platelet Aggregation Inhibitor, Nonsteroidal Anti-inflammatory Drug Start: 02-25-2014 aspirin 81 mg oral delayed release tablet Dose : 81 mg = 1 tab(s), Oral, qDay, 0 Refill(s) Start Date: 02/25/14 Status: Ordered atorvastatin 80 mg oral tablet (2 sources) HMG-CoA Reductase Inhibitor Start: 02-25-2014 Lipitor 80 mg oral tablet Dose : 40 mg = 0.5 tab(s), Oral, BID, 0 Refill(s) Start Date: 02/25/14 Status: Ordered cephalexin 500 mg oral capsule (2 sources) Cephalosporin Antibacterial Start: 04-22-2021 End: 05-02-2021 cephalexin 500 mg oral capsule Dose : 500 mg = 1 cap(s), Oral, QID, X 10 day(s), # 40 cap(s), 0 Refill(s), 05/02/21 15:41:00 EST, Open multiple fractures of hand bones, 116 Start Date: 04/22/21 Stop Date: 05/02/21 Status: Ordered dihydroxyaluminum sodium carbonate (2 sources) Start: 02-25-2014 take 1 tablet by mouth every hour as needed Rolaids 550 mg-110 mg oral tablet, chewable Dose = 2 tab(s), Oral, q1h, PRN as needed to control stomach acid, # 30 tab(s), 0 Refill(s) Start Date: 02/25/14 Status: Ordered docusate sodium 100 mg oral capsule (2 sources) Start: 02-25-2014 Colace 100 mg oral capsule Dose : 100 mg = 1 cap(s), Oral, BID, PRN as needed for constipation, 0 Refill(s) Start Date: 02/25/14 Status: Ordered ferrous sulfate 325 mg oral tablet (2 sources) Start: 02-25-2014 ferrous sulfate 325 mg (65 mg elemental iron) oral tablet Dose : 325 mg = 1 tab(s), Oral, TID, 0 Refill(s) Start Date: 02/25/14 Status: Ordered levothyroxine sodium 0.025 mg oral tablet (2 sources) l-Thyroxine Start: 02-25-2014 Synthroid 25 mcg (0.025 mg) oral tablet Dose : 25 mcg = 1 tab(s), Oral, qDayAC, 0 Refill(s) Start Date: 02/25/14 Status: Ordered metoprolol tartrate 25 mg oral tablet (2 sources) beta-Adrenergic Cathy Start: 02-25-2014 metoprolol tartrate 25 mg oral tablet Dose : 25 mg = 1 tab(s), Oral, BID, 0 Refill(s) Start Date: 02/25/14 Status: Ordered nortriptyline 25 mg oral capsule (2 sources) Tricyclic Antidepressant Start: 02-25-2014 nortriptyline 25 mg oral capsule Dose : 25 mg = 1 cap(s), Oral, qHS, 0 Refill(s) Start Date: 02/25/14 Status: Ordered pantoprazole 40 mg delayed release oral tablet (2 sources) Proton Pump Inhibitor Start: 02-25-2014 Protonix 40 mg oral enteric coated tablet Dose : 40 mg = 1 tab(s), Oral, qDayAC, 0 Refill(s) Start Date: 02/25/14 Status: Ordered raNITIdine 300 mg oral tablet (2 sources) Histamine-2 Receptor Antagonist Start: 02-25-2014 ranitidine 300 mg oral tablet (NF) Dose : 300 mg = 1 tab(s), Oral, qHS, # 30 tab(s), 0 Refill(s) Start Date: 02/25/14 Status: Ordered vitamin b12 1 mg oral tablet (2 sources) Vitamin B12 Start: 02-25-2014 Vitamin B12 1000 mcg oral tablet Dose : 1,000 mcg = 1 tab(s), Oral, qDay, 0 Refill(s) Start Date: 02/25/14 Status: Ordered Vitamin D2 50,000 intl units capsule (2 sources) Start: 02-25-2014 Vitamin D2 50,000 intl units capsule Dose : 50,000 unit(s) = 1 cap(s), Oral, Ori, 0 Refill(s) Start Date: 02/25/14 Status: Ordered warfarin sodium 2 mg oral tablet (2 sources) Vitamin K Antagonist Start: 02-25-2014 Coumadin 2 mg oral tablet Dose : 2 mg = 1 tab(s), Oral, qDay, 0 Refill(s) Start Date: 02/25/14 Status: Ordered Completed/Discontinued Medications Medication Drug Class(es) Dates Sig (Normalized) Sig (Original) sucralfate 1000 mg oral tablet (2 sources) Aluminum Complex Start: 03-02-2018 End: 04-01-2018 Carafate 1 g oral tablet Dose : 1 g = 1 tab(s), Oral, achs, # 120 tab(s), 0 Refill(s) Start Date: 03/02/18 Stop Date: 04/01/18 Status: Ordered Problems Active Problems Problem Classification Problem Date Documented Date Episodic/Chronic Disorders of lipid metabolism (1 source) Pure hypercholesterolemia; Translations: [Pure hypercholesterolemia] Onset: 11-28-2005 11-28-2005 Chronic Essential hypertension (1 source) Essential hypertension; Translations: [Unspecified essential hypertension] Onset: 11-28-2005 11-28-2005 Chronic Heart valve disorders (1 source) Aortic valve disorder; Translations: [Aortic valve disorders] Onset: 11-28-2005 11-28-2005 Chronic Other and ill-defined cerebrovascular disease (1 source) Acute ill-defined cerebrovascular disease; Translations: [Acute, but ill-defined, cerebrovascular disease] Onset: 08-01-2006 08-01-2006 Chronic Other injuries and conditions due to external causes (1 source) Multiple injuries; Translations: [Unspecified multiple injuries, initial encounter] Onset: 04-22-2021 Episodic Other nutritional; endocrine; and metabolic disorders (1 source) Obesity; Translations: [Obesity, unspecified] Onset: 11-28-2005 11-28-2005 Chronic Thyroid disorders (1 source) Hypothyroidism; Translations: [Unspecified hypothyroidism] Onset: 08-24-2007 08-24-2007 Chronic Past or Other Problems Problem Classification Problem Date Documented Da te Episodic/Chronic Other aftercare (1 source) Long-term current use of anticoagulant; Translations: [meterman (current) use of anticoagulants] Onset: 11-28-2005 11-28-2005 Episodic Spondylosis; intervertebral disc disorders; other back problems (1 source) Low back pain; Translations: [Lumbago] Onset: 02-24-2006 02-24-2006 Episodic Results Test Name Value Interpretation Reference Range Facil ity Vital Signs Date Time Vital Sign Value Performing Clinician Faci lity 04-22-2021 22:35-0500 Body temperature 97.52 [degF] DR LANI BERNAL DO [facility] 04-22-2021 22:35-0500 Diastolic blood pressure 75 mm[Hg] DR GARIBAY TANMAYJOHNNA DO [facility] 04-22-2021 22:35-0500 Heart rate 64 /min DR GARIBAY TANMAYJOHNNA DO [facility] 04-22-2021 22:35-0500 Mean blood pressure 107 mm[Hg] DR GARIBAY TANMAYJOHNNA DO [facility] 04-22-2021 22:35-0500 Respiratory rate 16 /min DR LANI BERNAL DO [facility] 04-22-2021 22:35-0500 Systolic blood pressure 170 mm[Hg] DR GARIBAY TANMAYJOHNNA DO [facility] 04-22-2021 15:34-0500 Diastolic blood pressure 59 mm[Hg] KALYAN KULKARNI MD [facility] 04-22-2021 15:34-0500 Heart rate 74 /min KALYAN KULKARNI MD [facility] 04-22-2021 15:34-0500 Respiratory rate 18 /min KALYAN KULKARNI MD [facility] 04-22-2021 15:34-0500 Systolic blood pressure 165 mm[Hg] KALYAN KULKARNI MD [facility] 04-22-2021 14:44-0500 Body temperature 98.6 [degF] KALYAN KULKARNI MD [facility] 04-22-2021 14:44-0500 Diastolic blood pressure 79 mm[Hg] KALYAN KULKARNI MD [facility] 04-22-2021 14:44-0500 Heart rate 71 /min KALYAN KULKARNI MD [facility] 04-22-2021 14:44-0500 Respiratory rate 16 /min KALYAN KULKARNI MD [facility] 04-22-2021 14:44-0500 Systolic blood pressure 185 mm[Hg] KALYAN KULKARNI MD [facility] Encounters Encounter Date Encounter Type Care Provider Facility Start: 04-22-2021 End: 04-22-2021 Emergency department patient visit DR LANI BERNAL DO [facility] Start: 04-22-2021 End: 04-22-2021 Emergency department patient visit KALYAN KULKARNI MD [facility] Start: 09-28-2001 End: 09-28-2001 Patient encounter procedure Roni Jeter Work Phone: [facility] Start: 09-28-2001 Results Only Roni jimenez Work Phone: [facility] Procedures Date Procedure Procedure Detail Performing Clinician Start: 09-28-2001 CONVERTED SURGICAL PATHOLOGY Roni Herman Corona Work Phone: Plan of Treatment Date Care Activity Detail Author Start: 12-31-2019 Influenza vaccination INFLUENZA (#1) [facility] Start: 2010 ADVANCE DIRECTIVE DISCUSSION ADVANCE DIRECTIVE DISCUSSION [facility] Start: 2010 PNEUMOVAX AGE 65 AND OVER WITH 5YR LOOKBACK (#1) PNEUMOVAX AGE 65 AND OVER WITH 5YR LOOKBACK (#1) [facility] Start: 08-28-1995 SHINGRIX VACCINE (1 of 2) QUINTERO GRIX VACCINE (1 of 2) [facility] Start: 08-28-1995 Tuberculosis screening COLOREC SLIME CANCER SCREENING,SEE MODIFIER [facility] Start: 1990 DIABETES SCREEN DIABETES SCREEN [facility] Start: 1980 LIPID SCREEN LIPID SCREEN [facility] Start: 1964 Urine microalbumin profile DTAP,TDAP ,TD (1 - Tdap) [facility] Start: 08-28-1963 ANNUAL PCP TEAM SPECIFICATION CONSULTANT ESEQUIEL DISEASE VISIT ANNUAL PCP TEAM CHRONIC DISEASE VISIT [facility] Start: 08-28-1963 BP CONTROLLED (<130/80) BP CONTROLLE D (<130/80) [facility] Start: 08-28-1963 HEPATITIS C SCREENING HEPATITIS C SC NORA [facility] Social History Date Type Detail Facility Tobacco smoking status NHIS Unknown if ev er smoked [facility] Sex Assigned At Not on file [facility] Ex-smoker (finding) [facility] Sex Assigned At [facility] Hospital Discharge instructions 04-23-2021 Note Date & Type Note Facility 04-23-2021 Hospital Discharg e instructions Patient Education 04/22/2021 23:15:28 LACERATION, All Laceration (All Closures) A laceration is a cut through the skin. This will usually require stitches (sutures) or renae if it is deep. Minor cuts may be treated with a surgical tape closure or skin glue. Home care The following guidelines will help you care for your laceration at home: Extremity, face, or trunk wounds Keep the wound clean and dry. If a bandage was applied and it becomes wet or dirty, replace it. Otherwise, leave it in place for the first 24 hours. If stitches or renae were used, clean the wound daily. After removing the bandage, wash the area with soap and water. Use a wet cotton swab to loosen and remove any blood or crust that forms. The doctor may prescribe an antibiotic cream or ointment to prevent infection. Do not stop taking this medication until you have finished the prescribed course or the doctor tells you to stop. The doctor may also prescribe medications for pain. Follow the doctor s instructions for taking these medications. You may remove the bandage to shower as usual after the first 24 hours, but do not soak the area in water (no swimming) until the stitches or renae are removed. If surgical tape was used, keep the area clean and dry. If it becomes wet, blot it dry with a towel. If skin glue was used, do not scratch, rub, or pick at the adhesive film. Do not place tape directly over the film. Do not apply liquid, ointment, or creams to the wound while the film is in place. Do not clean the wound with peroxide and do not apply ointments. Avoid activities that cause heavy sweating until the film has fallen off. Protect the wound from prolonged exposure to sunlight or tanning lamps. You may shower as usual but do not soak the wound in water (no baths or swimming). The film will fall off by itself in 5 10 days. Scalp wounds During the first two days, you may carefully rinse your hair in the shower to remove blood, glass or dirt particles. After two days, you may shower and shampoo your hair normally. Do not soak your scalp in the tub or go swimming until the stitches or renae have been removed. Talk with your doctor before applying any antibiotic ointment to the wound. Mouth wounds Eat soft foods to reduce pain. If the cut is inside of your mouth, clean by rinsing after each meal and at bedtime with a mixture of equal parts water and hydrogen peroxide (do not swallow!). Or, you can use a cotton swab to directly apply hydrogen peroxide onto the cut. Mouth wounds can be painful when eating. You may use an qvsx-[id number] local numbing solution for pain relief. If this is not available, you may use any numbing solution for teething babies. You may apply this directly to the sores with a cotton-tip swab or with your finger. Follow-up care Follow up with your health care provider. Most skin wounds heal within ten days. Mouth and facial wounds heal within five days. However, even with proper treatment, a wound infection may sometimes occur. Therefore, you should check the wound daily for signs of infection listed below. Stitches should be removed from the face within five days; stitches and renae should be removed from other parts of the body within 7 14 days. If dissolving stitches were used in the mouth, these will fall out or dissolve without the need for removal. If tape closures were used, remove them yourself if they have not fallen off after 7 days. If skin glue was used, the film will fall off by itself in 5 10 days. When to seek medical advice Call your health care provider right away if any of these occur: Bleeding not controlled by direct pressure Signs of infection, including increasing pain in the wound, increasing wound redness or swelling, or pus coming from the wound Fever of 100.4 F (38 C) or higher, or as directed by your health care provider Stitches or renae come apart or fall out or surgical tape falls off before 7 days Wound edges re-open [id number] [employer]. [address] [place] [address]. All rights reserved. This information is not intended as a substitute for professional medical care. Always follow your healthcare professional's instructions. Follow Up Care 04/22/2021 22:28:10 With:[place] Address: [address] [place] [id number]- When:2-4 days With:[place], [facility] Address: [address] [place], [place] [id number]- When:2-4 days With:[place], [facility] Address: [address] [place] [address]- When:2-4 days [facility] Hospital Discharge instructions 04-22-2021 Note Date & Type Note Facility 04-22-2021 Hospital Discharg e instructions Patient Education 04/22/2021 15:43:01 Laceration, Hand: All Closures Hand Laceration: All Closures A laceration is a cut through the skin. Deep cuts usually require stitches. Minor cuts may be closed with surgical tape or skin adhesive. X-rays may be done if something may have entered the skin through the cut, such as broken glass. You may also be given a tetanus shot if you are not up to date on this vaccination and the object that cut you may carry tetanus. Home care Your healthcare provider may prescribe an antibiotic. This is to help prevent infection. Follow all instructions for taking this medicine. Take the medicine every day until it is gone or you are told to stop. You should not have any left over. The healthcare provider may prescribe medicines for pain. Follow instructions for taking them. Follow the healthcare provider s instructions on how to care for the cut. Keep the wound clean and dry. Don't get the wound wet until you are told it is OK to do so. If the bandage gets wet, remove it. Gently pat the wound dry with a clean cloth. Then put on a clean, dry bandage. To help prevent infection, wash your hands with soap and water before and after caring for the wound. Caring for stiches: Once you no longer need to keep the stitches dry, clean the wound daily. First, remove the bandage. Then wash the area gently with soap and warm water, or as directed by the healthcare provider. Use a wet cotton swab to loosen and remove any blood or crust that forms. After cleaning, apply a thin layer of antibiotic ointment if advised. Then put on a new bandage unless you are told not to. Caring for skin glue: Don t put apply liquid, ointment, or cream on the wound while the glue is in place. Avoid activities that cause heavy sweating. Protect the wound from sunlight. Don't scratch, rub, or pick at the adhesive film. Don't place tape directly over the film. The glue should peel off within 5 to 10 days. Caring for surgical tape: Keep the area dry. If it gets wet, blot it dry with a clean towel. Surgical tape usually falls off within 7 to 10 days. If it has not fallen off after 10 days, you can take it off yourself. Put mineral oil or petroleum jelly on a cotton ball and gently rub the tape until it is removed. Once you can get the wound wet, you may shower as usual, but don't soak the wound in water. This means no tub baths or swimming. Even with proper treatment, a wound infection may sometimes occur. Check the wound daily for signs of infection listed below. Follow-up care Follow up with your healthcare provider, or as advised. If you have stitches, be sure to return as directed to have them removed. When to seek medical advice Call your healthcare provider right away if any of these occur: Wound bleeding not controlled by direct pressure Signs of infection, including increasing pain in the wound, increasing wound redness or swelling, or pus or bad odor coming from the wound Fever of 100.4 F (38. C) o higher, or as directed by your healthcare provider Stitches come apart or fall out or surgical tape falls off before 7 days Wound edges reopen Wound changes colors Numbness or weakness in the affected hand Decreased movement of the hand [id number] [employer]. [address] [place] [address]. All rights reserved. This information is not intended as a substitute for professional medical care. Always follow your healthcare professional's instructions. 04/22/2021 15:42:38 Skin Avulsion Skin Tear (Skin Avulsion) A skin avulsion is a tearing of the top layer of skin. This commonly happens after a fall or other injury. It also tends to be more common in older people, or those taking blood thinners or steroids for long periods of time. Home care These guidelines will help you care for your wound at home: Keep the wound clean and dry for the first 24 to 48 hours, or as your healthcare provider advises. If there is a dressing or bandage, change it when it gets wet or dirty. Otherwise, leave it on for the first 24 hours, then change it once a day or as often as the doctor says. If stitches or renae were used, check the wound every day. After taking off the dressing, wash the area gently with soap and water. Clean as close to the stitches as you can. Avoid washing or rubbing the stitches directly. After 3 days you can keep the bandages off the wound, unless told otherwise, or there is continued drainage. Allow the wound to be open to the air. Keep a thin layer of antibiotic ointment on the cut. This will keep the wound clean, make it easier to remove the stitches, and reduce scarring. If your wound is oozing, you can put a nonstick dressing over it. Then, reapply the bandage or dressing as you were told. You can shower as usual after the first 24 hours, but don't soak the area in water (no baths or swimming) until the stitches or renae are taken out. If surgical tape was used, keep the area clean and dry. If it becomes wet, blot it dry with a clean towel. If skin glue was used, don't put any creams, lotions, or antibiotic ointments on it. These can dissolve the glue. Usually the glue will flake off in about 5 to 10 days by itself. Try to resist picking it off before that so the wound doesn't open up. When it gets wet, pat it dry. Here is some information about medicine: You may use bkmv-fzs-iifhpxn medicine such as acetaminophen or ibuprofen to control pain, unless another pain medicine was given. If you have chronic liver or kidney disease or ever had a stomach ulcer or gastrointestinal bleeding, talk with your doctor before using these medicines. If you were given antibiotics, take them until they are all used up. It is important to finish the antibiotics even if the wound looks better. This will ensure that the infection has cleared. Follow-up care Follow up with your healthcare provider, or as advised. Watch for any signs of infection, such as increasing redness, swelling, or pus coming out. If this happens, don't wait for your scheduled visit. Instead, see a doctor sooner. Stitches or renae are usually taken out within 5 to 14 days. This varies depending on what part of your body they are on, and the type of wound. The doctor will tell you how long stitches should be left in. If surgical tape was used, it is usually left on for 7 to 10 days. You can remove surgical tape after that unless you were told otherwise. If you try to remove it, and it is too hard, soaking can help. Surgical tape strips will eventually fall off on their own. If the edges of the cut pull apart, stop removing the tape or strips and follow up with your doctor As mentioned above, skin glue will flake off by itself in 5 to 10 days, so you don't need to pull it off. If any X-rays were done, you will be notified of any changes that may affect your care. When to seek medical advice Call your healthcare provider right away if any of these occur: Increasing pain in the wound Redness, swelling, or pus coming from the wound Fever of 100.4 F (38 C) or higher, or as directed by your healthcare provider Sutures or renae come apart or fall out before your next appointment and the wound edges look as if they will re-open Surgical tape closures fall off before 7 days, and the wound edges look as if they will re-open Bleeding not controlled by direct pressure [id number] [employer]. [address] [place], [place] [id number]. All rights reserved. This information is not intended as a substitute for professional medical care. Always follow your healthcare professional's instructions. 04/22/2021 15:42:21 Open Hand Fracture (Adult) Open Hand Fracture (Adult) You have a fracture, or broken bone, in your hand. An open fracture means that the bone goes through the skin. Or it may mean there is a wound in the skin that goes as deep as the fractured bone. Because of this, there is a risk of infection to the skin or bone. The fractured bone may be a small crack or chip. Or it may be a major break with the broken parts pushed out of position. A hand fracture is often treated with a splint or cast. It usually takes 4 to 6 weeks to heal. Severe injuries may require surgery. Open fractures are at risk of becoming infected. You will be given an antibiotic to lower the risk of infection. Home care Keep your arm raised at elbow level as much as possible when sitting or standing. Sleep with your arm on your chest or on a pillow at your side. This is very important during the first 48 hours. Apply an ice pack over the injured area for no more than 15 to 20 minutes. Do this every 1 to 2 hours for the first 24 to 48 hours. To make an ice pack, put ice cubes in a plastic bag that seals at the top. Wrap the bag in a clean, thin towel or cloth. Never put ice or an ice pack directly on your skin. You can place the ice pack inside the sling and directly over the splint or cast. As the ice melts, be careful that the cast or splint doesn t get wet. Continue with ice packs as needed to ease pain and swelling. Keep the cast or splint completely dry at all times. Bathe with your cast or splint out of the water, protected with [address] 1 bag outside of the other. Tape each bag with duct tape at the top end or use rubber bands. If a fiberglass cast or splint gets wet, dry it with a geography department chair on a cool setting. You may use [id number] pain medicine to control pain, unless another pain medicine was prescribed. If you have chronic liver or kidney disease or ever had a stomach ulcer or GI bleeding, talk with your healthcare provider before using these medicines. Take any antibiotics prescribed as directed and until finished. Follow-up care Follow up with your healthcare provider within 1 week, or as advised. This is to be sure the bone is healing properly. If you were given a splint, it may be changed to a cast at your follow-up visit. If X-rays were taken, you will be told of any new findings that may affect your care. When to seek medical advice Call your healthcare provider right away if any of these occur: The plaster cast or splint becomes wet or soft The fiberglass cast or splint stays wet for more than 24 hours Increased tightness or pain develops under the cast or splint Your fingers become swollen, cold, blue, numb, or tingly The wound has redness, warmth, swelling, or drainage The cast or splint has a bad smell Fever of 100.4 F (38 C) or higher, or as directed by your provider Adriana [id number] [employer]. [address] [place] [id number]. All rights reserved. This information is not intended as a substitute for professional medical care. Always follow your healthcare professional's instructions. 04/22/2021 15:42:19 Fracture, Finger, Open Finger Fracture, Open You have a broken finger (fracture) with a nearby cut, puncture, or deep scrape. This causes local pain, swelling, and bruising. Because of the open injury, you are at risk for infection in the skin and bone. You will take antibiotics to lower the risk for infection. This injury usually takes about 4 weeks to heal. Finger injuries are often treated with a splint or cast, or by taping the injured finger to the next one (chuck taping). This protects the injured finger and holds the bone in position while it heals. More serious fractures may need surgery. If the fingernail has been severely injured, it will probably fall off in 1 to 2 weeks. A new fingernail will usually start to grow back within a month. Home care Follow these guidelines when caring for yourself at home: Keep your hand elevated to reduce pain and swelling. When sitting or lying down keep your arm above the level of your heart. You can do this by placing your arm on a pillow that rests on your chest or on a pillow at your side. This is most important during the first 2 days (48 hours) after the injury. Put an ice pack on the injured area. Do this for 20 minutes every 1 to 2 hours the first day for pain relief. You can make an ice pack by wrapping a plastic bag of ice cubes in a thin towel. As the ice melts, be careful that the cast or splint doesn t get wet. Continue using the ice pack 3 to 4 times a day until the pain and swelling go away. Keep the cast or splint completely dry at all times. Bathe with your cast or splint out of the water. Protect it with a large plastic bag, rubber-banded at the top end. If a fiberglass cast or splint gets wet, you can dry it with a geography department chair. You may use acetaminophen or ibuprofen to control pain, unless another pain medicine was prescribed. If you have chronic liver or kidney disease, talk with your healthcare provider before using these medicines. Also talk with your provider if you ve had a stomach ulcer or gastrointestinal bleeding. If chuck tape was applied and it becomes wet or dirty, change it. You may replace it with paper, plastic, or cloth tape. Cloth tape and paper tapes must be kept dry. Keep the chuck tape in place for at least 4 weeks. Take all antibiotics until you have finished them. Don t put creams or objects under the cast if you have itching. Follow-up care Follow up with your healthcare provider, or as advised. This is to make sure the bone is healing the way it should. X-rays may be taken. You will be told of any new findings that may affect your care. When to seek medical advice Call your healthcare provider right away if any of these occur: The cast or splint cracks The plaster cast or splint becomes wet or soft The fiberglass cast or splint stays wet for more than 24 hours Pain or swelling gets worse Tightness or pressure under the cast or splint gets worse Finger becomes cold, blue, numb, or tingly You can t move your finger Redness, warmth, swelling, drainage from the wound, or foul odor from a cast or splint Fever of 100.4 F (38 C) or higher, or as directed by your healthcare provider [id number] [employer]. [address] [place] [address], [place] [address]. All rights reserved. This information is not intended as a substitute for professional medical care. Always follow your healthcare professional's instructions. Follow Up Care 04/22/2021 14:39:00 With:TAMMY NAVARRO MD Address: [phone] When:5 to 7 days Comments:Call tomorrow [facility] Evaluation + Plan note Note Date & Type Note Facility Evaluation + Plan note No data available for this section [facility] Summary Purpose Family History No Family History Records Found Advance Directives No Advanced Directives Records Found Additional Source Comments Source Comments (unrecognize d section and content) In the event this informatio n is protected by the Federal Confidentiality of Alcohol and Drug Abuse Patient Records regulations: The Federal rules restrict any use of the information to criminally investigate or prosecute any alcohol or drug abuse patient.[facility] (unrecognized sect ion and content) No Status Records Found INFORMATION SOURCE (unrecogn ized section and content) FOR RECORDS PERTAINING TO PATIENTS WHO ARE OR HAVE BEEN ENROLLED IN A CHEMICAL DEPENDENCY/SUBSTANCEABUSE PROGRAM, SOME INFORMATION MAY BE OMITTED. This clinical summary was aggregated from multiple sources. Caution should be exercised in using it in the provision of clinical care. This summary normalizes information from multiple sources, and as a consequence, information in this document may materially change the coding, format and clinical context of patient data. In addition, data may be omitted in some cases. CLINICAL DECISIONS SHOULD BE BASED ON THE PRIMARY CLINICAL RECORDS. [facility]. provides no warranty or guarantee of the accuracy or completeness of information in this document.
--- NOTE | 2023-05-18 21:18 | EKG12_ITS ---
Test Reason : DYSRHYTHMIA Blood Pressure : / mmHG Vent. Rate : 076 BPM Atrial Rate : 000 BPM P-R Int : 000 ms QRS Dur : 078 ms QT Int : 402 ms P-R-T Axes : 000 027 123 degrees QTc Int : 452 ms Atrial fibrillation Nonspecific T wave abnormality Abnormal ECG Confirmed by PEYMAN ALCAZAR, STEVEN ([id number]), material expeditor FEDERICO ROSS ([id number]) on 05/19/2023 10:28:51 AM Referred By: ELIN Confirmed By:STEVEN MORLEY MD
--- NOTE | 2023-05-18 21:18 | EX.ED.DYSGE1 ---
HPI History of Present Illness Chief Complaint: Ear Problem Narrative Narrative: 77-year-old male initially came in to be evaluated for bleeding from the right ear. He had some dried blood there now. Not sure what happened and he may have scratched it. Bleeding is well-controlled. It was noticed when he got up to go to the bathroom that is hypoxic. He states that over the last couple of weeks he had some coughing and shortness of breath. No fevers or chills. No body aches. Patient states that initially he does not have any trouble sleeping but his noted that he is been sleeping in his lazy boy. He denies lower extremity edema. Patient is on Coumadin for history of heart valve replacement. [facility] Medical History Back pain Cardiology follow-up encounter Excessive bleeding FH: bilateral hip replacements Former smoker Gastric reflux High cholesterol History of echocardiogram History of edema History of IBS History of pain when walking History of stress test Leg cramps Migraine headache Shortness of breath on exertion Sleep apnea Stroke/cerebrovascular accident Thyroid disease Wears hearing aid Home Medications warfarin 4 mg tablet (Jantoven) 8 mg PO SUTUWETHFRSA 04/03/16 [History Last Taken 01/08/23] allopurinol 100 mg tablet 100 mg PO DAILYCM 04/04/16 [History Last Taken 05/18/23] atorvastatin 40 mg tablet 80 mg PO DAILY 04/04/16 [History Last Taken 05/18/23] ferrous sulfate 325 mg (65 mg iron) tablet 325 mg PO DAILY 04/04/16 [History Last Taken 05/18/23] isosorbide mononitrate 30 mg tablet,extended release 24 hr 30 mg PO DAILY 04/04/16 [History Last Taken 05/18/23] levothyroxine 25 mcg tablet 50 mcg PO DAILY 04/04/16 [History Last Taken 05/18/23] metoprolol tartrate 25 mg tablet 25 mg PO DAILY 04/04/16 [History Last Taken 05/18/23] pantoprazole 40 mg tablet,delayed release 40 mg PO BID 04/04/16 [History Last Taken 05/18/23] gabapentin 300 mg capsule 300 mg PO DAILY 01/10/20 [History Last Taken 05/18/23] tamsulosin 0.4 mg capsule 0.4 mg PO DAILY 07/09/22 [History Last Taken 05/18/23] warfarin 4 mg tablet 2 mg PO BID 07/09/22 [History Last Taken 01/08/23] aspirin 81 mg capsule 81 mg PO DAILY blood thinner 01/10/23 [History Last Taken 05/18/23] finasteride 5 mg tablet 5 mg PO DAILY 05/18/23 [History Last Taken 05/18/23] Allergy/AdvReac Type Severity Reaction Status Date / Time hydrocodone bitartrate Allergy Other Verified 05/18/23 17:58 [From Vicodin] Surgical History History of cardiac catheterization History of coronary artery stent placement History of heart surgery History of open heart surgery Hx laparoscopic cholecystectomy Hx of aortic valve replacement Social History (Updated 05/18/23 @ 21:50 by Lauren Felipe) household members: spouse Smoking Status: Former smoker ROS ROS ED Constitutional Constitutional ED: Denies chills, fever(s) or sweats Eyes Eyes: Denies blurry vision or change in vision ENT ENT ED: Denies ear pain or sore throat Cardiovascular Cardiovascular: Reports orthopnea; Denies chest pain, palpitations or racing heartbeat Respiratory/Chest Respiratory/Chest: Reports cough, dyspnea, dyspnea on exertion and orthopnea; Denies sputum Gastrointestinal Gastrointestinal: Denies abdominal pain, constipation, diarrhea, nausea or vomiting Genitourinary Genitourinary ED: Denies dysuria, hematuria or urinary frequency Musculoskeletal Musculoskeletal: Denies arthralgias, myalgias or neck pain Integumentary Reports other Details: Abrasion to left ear ; Denies abscess, Abrasions or rash Neurologic Neurologic: Denies headache(s), paresthesias or weakness Psychiatric Psychiatric: Denies anxiety, depression, suicidal ideation or suicidal thoughts Endocrine Endocrinology: Denies polydipsia or polyuria EXAM Physical Exam Const Vital Signs: 05/18/23 17:55 05/18/23 20:29 05/18/23 20:35 Temperature 97.6 F L 97.9 F Temperature Source Temporal Oral Pulse Rate 74 86 Respiratory Rate 18 16 Blood Pressure 183/69 H 180/81 H Blood Pressure Mean 107 114 Pulse Ox 93 87 93 Oxygen Delivery Method Room Air Room Air Nasal Cannula Oxygen Flow Rate (L/min) 2 05/18/23 21:18 05/18/23 21:54 05/18/23 23:27 Temperature 97.3 F L Temperature Source Temporal Pulse Rate 71 75 Respiratory Rate 18 18 Blood Pressure 169/98 H 172/81 H Blood Pressure Mean 121 111 Pulse Ox 93 93 93 Oxygen Delivery Method Nasal Cannula Nasal Cannula Oxygen Flow Rate (L/min) 2 3 Positive well nourished General Appearance ED: NAD; Negative for pallor HEENT Reports moist mucous membranes Eyes PERRL and EOMs intact bilaterally General Eye ED: Yes pale conjunctiva Chest Wall inspection of chest normal Resp normal respiratory effort Auscultation: rales bilateral base Cardio regular rate and regular rhythm Back/Spine no CVA tenderness Extremity General Extremety ED: Yes edema General Extremity: edema Neuro oriented x3 and CN's II-XII intact bilaterally Sensorium / Orientation: alert Motor Exam: strength 5/5 throughout Psych mental status grossly normal Skin no rashes or lesions noted and no wounds General Skin Exam: Negative for jaundice or pallor MDM MDM MDM Narrative Medical decision making narrative: Patient initially presenting for abrasion to the left ear which is not bleeding. This is just inside the ear canal and is stable. Patient reportedly hypoxic into the 80s on ambulation to the bathroom. He reports he has been having a cough and shortness of breath as well as orthopnea. No fevers at home. Differential includes ACS, CHF, pneumonia, dehydration, anemia, electrolyte normalities, COVID, influenza, RSV. CBC will be obtained to assess white blood cell count, hemoglobin, platelets. BMP to assess renal function, electrolytes, glucose. High-sensitivity troponin and EKG to assess for ischemia. Chest x-ray to rule out pneumonia or CHF. BNP will be obtained to assess for CHF. Patient on Coumadin so I have low suspicion for PE. Will check an INR to make sure he is therapeutic. CBC shows leukocytosis of 19.8. Hemoglobin 12.9. Platelets 254. INR therapeutic at 2.5. Due to leukocytosis I did obtain a urinalysis which is negative. Chest x-ray my interpretation shows no acute process. The radiologist interprets this and agrees. BNP is elevated at 399.2. Given the patient's negative chest x-ray and workup with a 19,000 white count with hypoxia I obtained a CT of the chest. This shows small bilateral pleural effusions versus infiltrates/atelectasis. This also shows concern for pancreatic mass. LFTs and lipase are unremarkable. Given the patient has a 19.8 white count I will cover him with antibiotics. Patient given Rocephin azithromycin. Discussed with hospitalist for admission as he is hypoxic. He requested I give a dose of Lasix as well. This was provided. Patient admitted in stable condition. Impression: 1. Pneumonia 2. CHF 3. Hypoxia 4. Pancreatic mass Lab Data Attestation: I reviewed the patient's lab results. Labs: Laboratory Results - last 24 hr 05/18/23 05/18/23 20:35 20:37 WBC 19.8 H RBC 4.65 Hgb 12.9 L Hct 41.0 MCV 88.2 MCH 27.7 MCHC 31.5 L RDW Std Deviation 52.8 H RDW Coeff of Clement 16.3 H Plt Count 254 MPV 10.8 Neut % (Auto) Not Reportable Absolute Neuts (auto) 15.6 H Absolute Lymphs (auto) 0.99 Total Counted 100 Neutrophils % (Manual) 77 H Band Neutrophils % 2 Lymphocytes % (Manual) 5 L Monocytes % (Manual) 6 Metamyelocytes % 2 H Myelocytes % 8 H Diff Path Review May foll Platelet Estimate ADEQUATE RBC Morphology NORM C+C Anisocytosis RARE Macrocytosis RARE Ovalocytes RARE PT 27.7 H INR 2.5 Sodium 138 Potassium 3.8 Chloride 105 Carbon Dioxide 28.0 Anion Gap 5 BUN 9 Creatinine 0.80 Est GFR (MDRD) Af Amer 121 Est GFR (MDRD) Non-Af 100 BUN/Creatinine Ratio 11.3 Glucose 112 H Calcium 9.1 Total Bilirubin 1.20 H Direct Bilirubin 0.42 H AST 22 ALT 41 Alkaline Phosphatase 234 H Troponin I High Sens 12 B-Natriuretic Peptide 399.2 H Total Protein 6.6 Albumin 3.4 Globulin 3.2 Lipase 30 Urine Color Yellow Urine Clarity Clear Urine pH 7.0 Ur Specific [place] 1.005 Urine Protein Negative Urine Glucose (UA) Normal Urine Ketones Negative Urine Occult Blood 10 H Urine Nitrite Negative Urine Bilirubin Negative Urine Urobilinogen 4 H Ur Leukocyte Esterase 25 H Urine RBC 0 SEEN Urine WBC 0-5 SEEN Ur Squamous Epith Cells 0 SEEN Urine Bacteria 0 SEEN Urine Mucus 0 SEEN Radiography Diagnostic Testing: Clinical Impression(s) from Imaging Studies Chest X-Ray 05/18/23 21:20 IMPRESSION: ASHD. No acute cardiopulmonary pathology Electronically Signed: Diego Sanchez MD at 21:38 EST , Chest CT 05/18/23 21:59 IMPRESSION: Small bilateral pleural effusions and bibasilar atelectasis or infiltrate. Incidental findings including apparent enlargement of the pancreatic head and uncinate process possibly due to chronic pancreatitis or neoplasm. Clinical correlation recommended as well as MRI/MRCP Small bilateral pleural effusions and bibasilar atelectasis or infiltrate. Electronically Signed: Diego Sanchez MD at 22:49 EST , Discharge Plan Triage Chief Complaint: Ear Problem ED Provider: Leighton Draek Dx/Rx/DC Orders Prescriptions: No Action warfarin [Jantoven] 4 MG tablet 8 mg PO SUTUWETHFRSA atorvastatin 40 MG tablet 80 mg PO DAILY isosorbide mononitrate 30 MG tablet 30 mg PO DAILY Patient Comments: Heart allopurinol 100 MG tablet 100 mg PO DAILYCM levothyroxine 25 MCG tablet 50 mcg PO DAILY pantoprazole 40 MG tablet 40 mg PO BID Patient Comments: stomach ferrous sulfate 325 MG tablet 325 mg PO DAILY metoprolol tartrate 25 MG tablet 25 mg PO DAILY gabapentin 300 MG capsule 300 mg PO DAILY warfarin 4 mg Tablet 2 mg PO BID Patient Comments: On he only takes a total of 2 mg for the whole day. tamsulosin 0.4 mg capsule 0.4 mg PO DAILY Patient Comments: Take 1 capsule by mouth once a day aspirin 81 mg capsule 81 mg PO DAILY finasteride 5 mg tablet 5 mg PO DAILY [facility] [Primary Care Provider] - Capacity Legal Manager Of Care Reflex Medical hold order details:: IF a medical hold is selected below, a suggested order for a MEDICAL HOLD will reflex upon signing the document. Next of kin: [place] law dictates a PRIORITY LIST for identifying legal decision-maker/legal next of kin in the following order (LNOK): 1st: The patient?s legal guardian, if any 2nd: The patient's spouse (if status is questionable, consult Risk Management) 3rd: The patient?s adult child(adelfo) (majority, if multiple children) 4th: The patient?s parents 5th: The patient?s adult siblings (majority, if multiple children siblings)
--- NOTE | 2023-05-18 21:20 | RAD_ITS ---
STUDY: X-RAY CHEST REASON FOR EXAM: Male, 77 years old. chest pain TECHNIQUE: AP portable COMPARISON: None. FINDINGS: The lungs are clear and expanded. There is no demonstrated pleural abnormality. Heart is mildly enlarged.. Normal mediastinum and cata. Normal visualized pulmonary arteries. Mildly calcified aortic arch and descending thoracic aorta. Postop change status post median sternotomy and CABG Normal visualized thoracic spine. Normal visualized ribs, clavicles, and shoulders. There is no demonstrated abnormality of the visualized soft tissue structures of the upper abdomen. RAD/Chest 1 View (Portable) IMPRESSION: ASHD. No acute cardiopulmonary pathology Electronically Signed: Diego Sanchez MD at 21:38 EST ,
[2023-05-18 21:29] LABS: Hemoglobin 12.9 g/dL (13.0-16.5); Mean Corp Hgb Conc 31.5 g/dL (32-36); Mean Corpuscular Hgb 27.7 pg (27.0-32.0); Mean Corpuscular Volume 88.2 fL (80-94); Mean Platelet Vol. 10.8 fl (6.2-12.0); POSITIVE COUNT YES; POSITIVE MORPHOLOGY YES; Platelet Count 254 K/mm3 (150-450); RBC Distribution Width CV 16.3 % (11.6-14.6); RBC Distribution Width SD 52.8 fl (35.1-43.9); Red Blood Count 4.65 M/mm3 (4.6-6.2); White Blood Count 19.8 K/mm3 (4.4-11.0)
[2023-05-18 21:35] LABS: Differential Indicated MANUAL DIFF
[2023-05-18 21:39] LABS: International Normalized Ratio 2.5; Prothrombin Time (Protime)PT. 27.7 SECONDS (11.7-14.9)
[2023-05-18 21:49] LABS: Anion Gap 5 (5-15); BUN 9 mg/dL (7-18); BUN/Creat Ratio 11.3 RATIO (10-20); Calcium,Total 9.1 mg/dL (8.5-10.1); Chloride 105 mmol/L (98-107); EST Glomerular Filtration Rate 100 mL/min (>60); Est Glom Filt Rate - Afr Amer 121 mL/min (>60); Glucose 112 mg/dL (74-106); Potassium 3.8 mmol/L (3.5-5.1); Sodium Level 138 mmol/L (136-145); Troponin-I HS 12 pg/mL (3.0-78.0)
[2023-05-18 21:58] LABS: Lymphocyte 5 % (19-41); Metamyelocyte 2 % (0-1); Monocyte 6 % (0-10); Myelocyte 8 % (0-0); Neutrophil-Band 2 % (0-5); Neutrophil-Segmented 77 % (47-70); Total Cells Counted 100 (MANUAL DIFF)
--- NOTE | 2023-05-18 21:59 | CT_ITS ---
INDICATION: hypoxia EXAMINATION: CT CHEST WITH CONTRAST - CT Chest W/ Contrast Injection TECHNIQUE: Helically acquired images were obtained of the chest following IV contrast. A radiation dose optimization technique was used for this scan. IV Contrast dosage and agent: COMPARISON: April 03, 2016 FINDINGS: LUNGS, PLEURA AND LARGE AIRWAYS: There are small bilateral pleural effusions and bibasilar atelectasis or infiltrates. No pneumothorax. THYROID: Multinodular retrosternal goiter is noted HEART AND PERICARDIUM: Heart size is normal. No pericardial effusion. Multifocal coronary artery disease. VESSELS: Thoracic aorta is not dilated. No aortic dissection. No obvious central pulmonary embolism although this study was not performed with the pulmonary embolism protocol. MEDIASTINUM AND CRISTOBAL: No mediastinal or hilar adenopathy. Esophagus is unremarkable. No hiatal hernia. UPPER ABDOMEN: Small right adrenal nodule measuring approximately 1.7 cm unchanged since previous study.. Nonspecific fatty infiltrated liver. There is asymmetric prominence of the pancreatic head and uncinate process which has increased in size since prior exam MRI/MRCP recommended for further evaluation Small hiatal hernia noted BONES: Postop change status post median sternotomy and aortic valve replacement.. Dorsal spine demonstrates advanced arthritic changes possibly ankylosing spondylitis.. CT/Chest WITH Contrast IMPRESSION: Small bilateral pleural effusions and bibasilar atelectasis or infiltrate. Incidental findings including apparent enlargement of the pancreatic head and uncinate process possibly due to chronic pancreatitis or neoplasm. Clinical correlation recommended as well as MRI/MRCP Small bilateral pleural effusions and bibasilar atelectasis or infiltrate. Electronically Signed: Diego Sanchez MD at 22:49 EST ,
[2023-05-18 22:02] LABS: Anisocytosis RARE; Macrocytosis RARE; Ovalocyte RARE; Platelet Estimate ADEQUATE (ADEQ); Red Cell Morphology NORM C+C NORMAL (NORM C&C)
[2023-05-18 22:05] LABS: Absolute Lymphocyte Count 0.99 X10^3/uL (0.83-4.51); Absolute Neutrophil Count 15.6 X10^3/uL (2.0-7.7)
[2023-05-18 22:10] LABS: BNP,B-Type NATRIURETIC PEPTIDE 399.2 pg/mL (0-100)
[2023-05-18 22:18] LABS: Bacteria 0 SEEN /hpf (None Seen); Mucous, Urine 0 SEEN /hpf (<or=2+); Red Blood Cells-Urine 0 SEEN /hpf (0-5); Squamous Epithelial Cells - UA 0 SEEN /hpf (0-5)
[2023-05-18 22:26] LABS: Color, Urine Yellow (Yellow); Glucose, Dipstick Normal (Normal); Ketone-Dipstick Negative (Negative); Leukocyte Esterase-Dipstick 25 /ul (Negative); Nitrite-Dipstick Negative (Negative); Occult Blood-Urine 10 /ul (Negative); Protein-Dipstick Negative (Negative); Specific Gravity, Urine 1.005 (1.002-1.030); Urine Bilirubin Dipstick Negative (Negative); Urine Clarity Clear (Clear); Urine Urobilinogen 4 mg/dl (Normal)
[2023-05-18 22:32] LABS: White Blood Cells 0-5 SEEN /hpf (0-5)
[2023-05-18] MEDS: Azithromycin 500 MG in Dextrose 5%-Water (250mL Bag) 250 ML 250 MG IV (23:00)
[2023-05-18 23:16] LABS: AST(SGOT) 22 U/L (15-37); Alanine Aminotransfer ALT/SGPT 41 U/L (16-61); Albumin, Serum 3.4 g/dL (3.2-5.0); Alkaline Phosphatase 234 U/L (45-117); Bilirubin, Direct 0.42 mg/dL (0.00-0.30); Globulin 3.2 g/dL (2.2-4.2); Lipase 30 U/L (13-75); Protein, Total 6.6 g/dL (6.4-8.2)
--- NOTE | 2023-05-18 23:25 | HP.PCM.HOS_ITS ---
[facility] - General General Date of Admission: 05/19/23 Date of Service: 05/18/23 Chief Complaint: Cough and SOB. HPI Narrative EDDIE JIMENEZ, is a 77 M with a past medical history of essential hypertension, hyperlipidemia, hypothyroidism, obesity; with BMI of 36.4 this admission, JONNA, history of tobacco abuse, CAD; s/p stent, chronic atrial fibrillation + history of mechanical aortic valve; on Coumadin, history of CVA (2006), migraine headaches, chronic anemia, neuropathy, history of diverticulosis, IBS, hiatal hernia, BPH, GERD, gout and OA; s/p bilateral THR's plus chronic back pain who presents to [facility] ER complaining of cough and SOB. Mr. Jimenez reports his symptoms began approximately two weeks prior to admission with increasing coughing and SOB. In the ER he was noted to be hypoxic when he got up to use the bathroom with patient admitting he has been sleeping in a recliner due to increased SOB when lying flat though he denies LE edema. He also denies associated fever, chills, nausea, vomiting, abdominal pain or chest pain. In the ER he was noted to have a CXR positive for bibasilar infiltrate consistent with suspected pneumonia and leukocytosis of 19.8 present on admission along with an elevated BNP of 399 pg/mL present on admission consistent with superimposed AE CHF with clinical evidence of acute hypoxic respiratory insufficiency complicated by an incidentally noted enlargement of the pancreatic head and uncinate process due to a suspected neoplasm with MRCP recommended and he was then admitted to the PCU for ongoing care for a stay that is expected to be greater than 48 hours. [facility] Medical History Back pain Cardiology follow-up encounter Excessive bleeding FH: bilateral hip replacements Former smoker Gastric reflux High cholesterol History of echocardiogram History of edema History of IBS History of pain when walking History of stress test Leg cramps Migraine headache Shortness of breath on exertion Sleep apnea Stroke/cerebrovascular accident Thyroid disease Wears hearing aid Home Medications warfarin 4 mg tablet (Jantoven) 8 mg PO SUTUWETHFRSA 04/03/16 [History Last Taken 01/08/23] allopurinol 100 mg tablet 100 mg PO DAILYCM 04/04/16 [History Last Taken 05/18/23] atorvastatin 40 mg tablet 80 mg PO DAILY 04/04/16 [History Last Taken 05/18/23] ferrous sulfate 325 mg (65 mg iron) tablet 325 mg PO DAILY 04/04/16 [History Last Taken 05/18/23] isosorbide mononitrate 30 mg tablet,extended release 24 hr 30 mg PO DAILY 04/04/16 [History Last Taken 05/18/23] levothyroxine 25 mcg tablet 50 mcg PO DAILY 04/04/16 [History Last Taken 05/18/23] metoprolol tartrate 25 mg tablet 25 mg PO DAILY 04/04/16 [History Last Taken 05/18/23] pantoprazole 40 mg tablet,delayed release 40 mg PO BID 04/04/16 [History Last Taken 05/18/23] gabapentin 300 mg capsule 300 mg PO DAILY 01/10/20 [History Last Taken 05/18/23] tamsulosin 0.4 mg capsule 0.4 mg PO DAILY 07/09/22 [History Last Taken 05/18/23] warfarin 4 mg tablet 2 mg PO BID 07/09/22 [History Last Taken 01/08/23] aspirin 81 mg capsule 81 mg PO DAILY blood thinner 01/10/23 [History Last Taken 05/18/23] finasteride 5 mg tablet 5 mg PO DAILY 05/18/23 [History Last Taken 05/18/23] Allergy/AdvReac Type Severity Reaction Status Date / Time hydrocodone bitartrate Allergy Other Verified 05/18/23 17:58 [From Vicodin] Surgical History History of cardiac catheterization History of coronary artery stent placement History of heart surgery History of open heart surgery Hx laparoscopic cholecystectomy Hx of aortic valve replacement Social History household members: spouse Smoking Status: Former smoker ROS ROS Narrative Review of systems: General: Patient denies fevers or chills. HENT: Denies headache, denies stuffy nose, denies sore throat EYES: Denies changes in vision Resp: Patient admits to shortness of breath that is made worse by lying flat. Cardiac: Positive orthopnea with patient sleeping in recliner. GI: Denies abdominal pain, denies changes in bowel, denies nausea or vomiting : Denies changes in urination Extremity: Denies swelling Musculoskeletal: Feels somewhat generally weak and unwell Neuro: Denies any numbness/tingling Heme: Denies any bleeding or bruising Skin: Patient admits to abrasion to right ear. Psychiatric: No complaints voiced related to uncontrolled depression or anxiety. Endocrine: No polyuria, polydipsia or polyphagia. The rest of the 14 point ROS was negative except for positives in HPI. Vital Signs Vital Signs Vital Signs: 05/18/23 17:55 05/18/23 20:29 05/18/23 20:35 Temperature 97.6 F L 97.9 F Temperature Source Temporal Oral Pulse Rate 74 86 Respiratory Rate 18 16 Blood Pressure 183/69 H 180/81 H Blood Pressure Mean 107 114 Pulse Ox 93 87 93 Oxygen Delivery Method Room Air Room Air Nasal Cannula Oxygen Flow Rate (L/min) 2 05/18/23 21:18 05/18/23 21:54 Temperature 97.3 F L Temperature Source Temporal Pulse Rate 71 Respiratory Rate 18 Blood Pressure 169/98 H Blood Pressure Mean 121 Pulse Ox 93 93 Oxygen Delivery Method Nasal Cannula Nasal Cannula Oxygen Flow Rate (L/min) 2 3 Physical Exam Const alert, oriented x3 and no apparent distress Constitutional Narrative: Obese and chronically ill-appearing. General Appearance: cooperative HEENT normocephalic, head/scalp atraumatic, hearing grossly normal bilaterally and moist oral mucous membranes HEENT Narrative: Patient did have a small amount of dried blood coming from his EAC and down the pinna of his left ear. Eyes PERRL and EOMs intact bilaterally Neck no lymphadenopathy and supple Resp Resp Narrative: Diminished breath sounds throughout with bibasilar rales. Auscultation: rales Cardio regular rate and regular rhythm GI normal to inspection, nondistended, normoactive bowel sounds, soft to palpation, non-tender and non-distended GI Narrative: Obese. Extremity normal to inspection and full ROM Neuro oriented x3, CN's II-XII intact bilaterally, moves all extremities and no focal motor deficits Sensorium / Orientation: awake, alert, oriented to person, oriented to place and oriented to time Speech: speech normal Motor Exam: strength 5/5 throughout Psych affect normal Results Medical Records Data Attestation: I reviewed the patient's medical records Lab / Micro Data Attestation: I reviewed the patient's lab results. 05/18/23 20:37 05/18/23 20:37 Labs: Laboratory Results - last 24 hr 05/18/23 20:35: Urine Color Yellow, Urine Clarity Clear, Urine pH 7.0, Ur Specific Achille 1.005, Urine Protein Negative, Urine Glucose (UA) Normal, Urine Ketones Negative, Urine Occult Blood 10 H, Urine Nitrite Negative, Urine Bilirubin Negative, Urine Urobilinogen 4 H, Ur Leukocyte Esterase 25 H, Urine RBC 0 SEEN, Urine WBC 0-5 SEEN, Ur Squamous Epith Cells 0 SEEN, Urine Bacteria 0 SEEN, Urine Mucus 0 SEEN 05/18/23 20:37: WBC 19.8 H, RBC 4.65, Hgb 12.9 L, Hct 41.0, MCV 88.2, MCH 27.7, MCHC 31.5 L, RDW Std Deviation 52.8 H, RDW Coeff of Clement 16.3 H, Plt Count 254, MPV 10.8, Neut % (Auto) Not Reportable, Absolute Neuts (auto) 15.6 H, Absolute Lymphs (auto) 0.99, Total Counted 100, Neutrophils % (Manual) 77 H, Band Neutrophils % 2, Lymphocytes % (Manual) 5 L, Monocytes % (Manual) 6, Metamyelocytes % 2 H, Myelocytes % 8 H, Diff Path Review May foll, Platelet Estimate ADEQUATE, RBC Morphology NORM C+C, Anisocytosis RARE, Macrocytosis RARE, Ovalocytes RARE, PT 27.7 H, INR 2.5, Sodium 138, Potassium 3.8, Chloride 105, Carbon Dioxide 28.0, Anion Gap 5, BUN 9, Creatinine 0.80, Est GFR (MDRD) Af Amer 121, Est GFR (MDRD) Non-Af 100, BUN/Creatinine Ratio 11.3, Glucose 112 H, Calcium 9.1, Total Bilirubin 1.20 H, Direct Bilirubin 0.42 H, AST 22, ALT 41, Alkaline Phosphatase 234 H, Troponin I High Sens 12, B-Natriuretic Peptide 399.2 H, Total Protein 6.6, Albumin 3.4, Globulin 3.2, Lipase 30 Micro: Microbiology 05/18/23 21:21 Mucosa - Nose SARS-CoV-2, Influenza & RSV (PCR) - Final Imagaing Radiology Impression Chest X-Ray 05/18/23 21:20 IMPRESSION: ASHD. No acute cardiopulmonary pathology Electronically Signed: Diego Sanchez MD at 21:38 EST , Chest CT 05/18/23 21:59 IMPRESSION: Small bilateral pleural effusions and bibasilar atelectasis or infiltrate. Incidental findings including apparent enlargement of the pancreatic head and uncinate process possibly due to chronic pancreatitis or neoplasm. Clinical correlation recommended as well as MRI/MRCP Small bilateral pleural effusions and bibasilar atelectasis or infiltrate. Electronically Signed: Diego Sanchez MD at 22:49 EST , Assessment & Plan Assessment/Plan (1) Pneumonia: QUALIFIERS: Pneumonia type: due to unspecified organism Laterality: bilateral Lung location: unspecified part of lung Qualified Code(s): J18.9 - Pneumonia, unspecified organism (2) CHF exacerbation: QUALIFIERS: Heart failure type: unspecified Qualified Code(s): I50.9 - Heart failure, unspecified (3) Mass of head of pancreas: PLAN: Plan 1. Bibasilar Pneumonia with Leukocytosis of 19.8 present on admission - Admit to PCU. Continue broad-spectrum antibiotics and await culture & sensitivity data. Give Tylenol prn pain or fever. 2. AE CHF evidenced by elevated BNP of 399 pg/mL present on admission with orthopnea and uncontrolled hypertension present on admission complicating #1 - Give IV Lasix with supplemental KCl and magnesium. Fluid restrict to 1.5L daily. Check echocardiogram to evaluate LVEF. 3. Acute hypoxic respiratory insufficiency arising from #1 & #2 - Wean supplemental oxygen as tolerated. 4. Incidentally noted enlargement of the pancreatic head and uncinate process due to a suspected neoplasm with MRCP recommended - MRCP ordered for the AM. Check CA 19-9 level. Finally, we will consult Dr. Andres of the gastroenterology service to see this patient on-rounds in the AM for further recommendations with help appreciated in advance. 5. Chronic atrial fibrillation + history of mechanical aortic valve; on Coumadin with INR of 2.5 present on admission - Continue Coumadin as previous and check daily PT/INR. 6. CAD; s/p stent - Noted. Continue BASA and statin as previous. 7. Essential hypertension - Resume home medications plus give prn IV Hydralazine for systolic blood pressure > 160 mm Hg. 8. Hyperlipidemia - Continue statin and check lipid profile. 9. Hypothyroidism - Resume Synthroid and check TSH. 10. Obesity; with BMI of 36.4 this admission plus JONNA - Weight loss will be recommended. 11. History of tobacco abuse - Noted. 12. History of CVA (2006) - Stable. 13. Migraine headaches - Stable with no complaints of headache at this time. 14. Chronic anemia - Noted. Hemoglobin normal at 12.9 present on admission. 15. Neuropathy - Continue Gabapentin as previous. 16. History of diverticulosis - Noted. 17. IBS - Stable. 18. GERD; with Hiatal hernia - Continue PPI. 19. BPH - Resume Tamsulosin and Finasteride. 20. Gout - Stable with no evidence of acute flare. 21. OA; s/p bilateral THR's plus chronic back pain - Give Tylenol prn. 22. DVT prophylaxis - Patient is already on Coumadin for #5 which will be continued. Check daily PT/INR. Total time: Approximately 55 minutes. Charges/Coding Visit Charges Inpatient E&M: 04474 Init Hosp L2
[2023-05-18] MEDS: Furosemide 40 MG/4 ML Vial IV (23:41)
[2023-05-18] MEDS: Ceftriaxone 1 GM/50 ML BAG IV (23:45)
--- OUTSIDE RECORDS SUMMARY | 2023-05-18 23:45 | XMS RPT_ITS | CCD ---
Author Name Unknown Address [address] [place] [address] Organization [facility] Care Team Providers Care Pupil Personnel Services Director Name Role Phone Pa Del Cid (Hist) Primary Care Provider Moreno Bob Primary Care Provider [phone] [facility] Primary Care Physician [phone] Allergies Allergy Classification Reported Allergen(s) Allergy Type Date of Onset Reaction(s) Facility (3 sources) Acetaminophen / HYDROcodone; Translations: [acetaminophen-hyd rocodone] Drug Allergy 6 Shortness of Breath [facility] Medications Current Medications Medication Drug Class(es) Dates [...] source) Long-term current use of anticoagulant; Translations: [margin trimmer (current) use of anticoagulants] Onset: 11-28-2005 11-28-2005 Episodic Spondylosis; intervertebral disc disorders; other back problems (1 source) Low back pain; Translations: [Lumbago] Onset: 02-24-2006 02-24-2006 Episodic Results Test Name Value Interpretation Reference Range Facil ity Vital Signs Date Time Vital Sign Value Performing Clinician Faci lity 04-22-2021 22:35-0500 Body temperature 97.52 [degF] DR LANI BERNAL DO [facility] 04-22-2021 22:35-0500 Diastolic blood pressure 75 mm[Hg] DR GARIBAY TANMAYJOHNNA DO [facility] 04-22-2021 22:35-0500 Heart rate 64 /min DR GARIBAY TANMAYJOHNNA DO [facility] 04-22-2021 22:35-0500 Mean blood pressure 107 mm[Hg] DR GARIBAY TANMAYJOHNNA DO [facility] 04-22-2021 22:35-0500 Respiratory rate 16 /min DR LANI BERNAL DO [facility] 04-22-2021 22:35-0500 Systolic blood pressure 170 mm[Hg] DR GARIBAY TANMAYJOHNNA DO [facility] 04-22-2021 15:34-0500 Diastolic blood pressure 59 mm[Hg] KALYAN KULKARNI MD [facility] 04-22-2021 15:34-0500 Heart rate 74 /min KALYAN KULKARNI MD [facility] 04-22-2021 15:34-0500 Respiratory rate 18 /min KALYAN KULKARNI MD [facility] 04-22-2021 15:34-0500 Systolic blood pressure 165 mm[Hg] KALYAN UKLKARNI MD [facility] 04-22-2021 14:44-0500 Body temperature 98.6 [degF] KALYAN KULKARNI MD [facility] 04-22-2021 14:44-0500 Diastolic blood pressure 79 mm[Hg] KALYAN KULKARNI MD [facility] 04-22-2021 14:44-0500 Heart rate 71 /min KALYAN KULKARNI MD [facility] 04-22-2021 14:44-0500 Respiratory rate 16 /min KALYAN KULKARNI MD [facility] 04-22-2021 14:44-0500 Systolic blood pressure 185 mm[Hg] KALYAN KULKARNI MD [facility] Encounters Encounter Date Encounter Type Care Provider Facility Start: 04-22-2021 End: 04-22-2021 Emergency department patient visit DR LANI BERNAL DO [facility] Start: 04-22-2021 End: 04-22-2021 Emergency department patient visit KALYAN KULKARNI MD [facility] Start: 09-28-2001 End: 09-28-2001 Patient encounter procedure Roni Jeter Work Phone: [facility] Start: 09-28-2001 Results Only Roni jimenez Work Phone: [facility] Procedures Date Procedure Procedure Detail Performing Clinician Start: 09-28-2001 CONVERTED SURGICAL PATHOLOGY Roni Herman Corona Work Phone: Plan of Treatment Date Care Activity Detail Author Start: 12-31-2019 Influenza vaccination INFLUENZA (#1) [facility] Start: 2010 ADVANCE DIRECTIVE DISCUSSION ADVANCE DIRECTIVE DISCUSSION [facility] Start: 2010 PNEUMOVAX AGE 65 AND OVER WITH 5YR LOOKBACK (#1) PNEUMOVAX AGE 65 AND OVER WITH 5YR LOOKBACK (#1) [facility] Start: 08-28-1995 SHINGRIX VACCINE (1 of 2) QUINTERO GRIX VACCINE (1 of 2) [facility] Start: 08-28-1995 Tuberculosis screening COLOREC SLIME CANCER SCREENING,SEE MODIFIER [facility] Start: 1990 DIABETES SCREEN DIABETES SCREEN [facility] Start: 1980 LIPID SCREEN LIPID SCREEN [facility] Start: 1964 Urine microalbumin profile DTAP,TDAP ,TD (1 - Tdap) [facility] Start: 08-28-1963 ANNUAL PCP TEAM NON DESTRUCTIVE TESTING TECHNICIAN ESEQUIEL DISEASE VISIT ANNUAL PCP TEAM CHRONIC DISEASE VISIT [facility] Start: 08-28-1963 BP CONTROLLED (<130/80) BP CONTROLLE D (<130/80) [facility] Start: 08-28-1963 HEPATITIS C SCREENING HEPATITIS C SC NORA [facility] Social History Date Type Detail Facility Tobacco smoking status NHIS Unknown if ev er smoked [facility] Sex Assigned At Not on file [facility] Ex-smoker (finding) [facility] Sex Assigned At [facility] Hospital Discharge instructions 04-23-2021 Note Date [...] painful when eating. You may use an nqqt-uhg-dpylbvy local numbing solution for pain relief. If [...] off before 7 days Wound edges re-open [id number] [employer]. [address] [place] [address]. All rights reserved. This information is not intended as a substitute for professional medical care. Always follow your healthcare professional's instructions. Follow Up Care 04/22/2021 22:28:10 With:[facility] Address: [address] [place] [id number]- When:2-4 days With:[facility] Address: [address] [place], [place] [id number]- When:2-4 days With:[facility] Address: [address] [place] [address]- When:2-4 days [facility] Hospital Discharge instructions 04-22-2021 Note Date [...] affected hand Decreased movement of the hand [phone] [employer]. [address] [place] [address]. All rights reserved. This information is not [...] as the doctor says. If stitches or ernae were used, check the wound every day. [...] some information about medicine: You may use cpxt-tgt-gdvdplg medicine such as acetaminophen or ibuprofen to [...] re-open Bleeding not controlled by direct pressure [phone] [employer]. [address] [place], [place] [id number]. All rights reserved. This information is not [...] splint gets wet, dry it with a chair upholsterer on a cool setting. You may use msli-inw-ofwclko pain medicine to control pain, unless another [...] or as directed by your provider Adriana [phone] [employer]. [address] [place] [address]. All rights reserved. This information is not [...] wet, you can dry it with a chair upholsterer. You may use acetaminophen or ibuprofen to [...] or as directed by your healthcare provider [phone] [employer]. [address] [place] [address], [place] [address]. All rights reserved. This information is not intended as a substitute for professional medical care. Always follow your healthcare professional's instructions. Follow Up Care 04/22/2021 14:39:00 With:TAMMY NAVARRO MD Address: [phone] When:5 to 7 days Comments:Call tomorrow [facility] Evaluation + Plan note Note Date & Type Note Facility Evaluation + Plan note No data available for this section [facility] Summary Purpose Family History No Family [...] or prosecute any alcohol or drug abuse patient.[facility] (unrecognized sect ion and content) No Status [...] BE BASED ON THE PRIMARY CLINICAL RECORDS. [employer] [facility]. provides no warranty or guarantee of the accuracy or completeness of information in this document.
[2023-05-19] VITALS (8 sets, daily range): BP systolic 153–194; BP diastolic 55–78; PULSE 64–84; RESP 16–19; TEMP 36.3–36.8; O2SAT 95–98; BMI 34.6; BMI 34.0
--- OUTSIDE RECORDS SUMMARY | 2023-05-19 00:29 | XMS RPT_ITS | CCD ---
Author Name Unknown Address [address] [place] [address] Organization [facility] Care Team Providers Care Log Clerk Name Role Phone Pa Del Cid (Hist) Primary Care Provider Moreno Bob Primary Care Provider [phone] [facility] Primary Care Physician Allergies Allergy Classification Reported Allergen(s) Allergy Type Date of Onset Reaction(s) Facility (3 sources) Acetaminophen / HYDROcodone; Translations: [acetaminophen-hyd rocodone] Drug Allergy 6 Shortness of Breath [facility] Medications Current Medications Medication Drug Class(es) Dates [...] source) Long-term current use of anticoagulant; Translations: [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] Onset: 11-28-2005 11-28-2005 Episodic Spondylosis; intervertebral disc disorders; other back problems (1 source) Low back pain; Translations: [Lumbago] Onset: 02-24-2006 02-24-2006 Episodic Results Test Name Value Interpretation Reference Range Facil ity Vital Signs Date Time Vital Sign Value Performing Clinician Faci lity 04-22-2021 22:35-0500 Body temperature 97.52 [degF] DR LANI BERNAL DO [facility] 04-22-2021 22:35-0500 Diastolic blood pressure 75 mm[Hg] DR GARIBAY TANMAYJOHNNA DO [facility] 04-22-2021 22:35-0500 Heart rate 64 /min DR GARIBAY TANMAYJOHNNA DO [facility] 04-22-2021 22:35-0500 Mean blood pressure 107 mm[Hg] DR GARIBAY TANMAYJOHNNA DO [facility] 04-22-2021 22:35-0500 Respiratory rate 16 /min DR LANI BERNAL DO [facility] 04-22-2021 22:35-0500 Systolic blood pressure 170 mm[Hg] DR GARIBAY TANMAYJOHNNA DO [facility] 04-22-2021 15:34-0500 Diastolic blood pressure 59 mm[Hg] KALYAN KULKARNI MD [facility] 04-22-2021 15:34-0500 Heart rate 74 /min KALYAN KULKARNI MD [facility] 04-22-2021 15:34-0500 Respiratory rate 18 /min KALYAN KULKARNI MD [facility] 04-22-2021 15:34-0500 Systolic blood pressure 165 mm[Hg] KALYAN KULKARNI MD [facility] 04-22-2021 14:44-0500 Body temperature 98.6 [degF] KALYAN KULKARNI MD [facility] 04-22-2021 14:44-0500 Diastolic blood pressure 79 mm[Hg] KALYAN KULKARNI MD [facility] 04-22-2021 14:44-0500 Heart rate 71 /min KALYAN KULKARNI MD [facility] 04-22-2021 14:44-0500 Respiratory rate 16 /min KALYAN KULKARNI MD [facility] 04-22-2021 14:44-0500 Systolic blood pressure 185 mm[Hg] KALYAN KULKARNI MD [facility] Encounters Encounter Date Encounter Type Care Provider Facility Start: 04-22-2021 End: 04-22-2021 Emergency department patient visit DR LANI BERNAL DO [facility] Start: 04-22-2021 End: 04-22-2021 Emergency department patient visit KALYAN KULKARNI MD [facility] Start: 09-28-2001 End: 09-28-2001 Patient encounter procedure Roni Jeter Work Phone: [facility] Start: 09-28-2001 Results Only Roni jimenez Work Phone: [facility] Procedures Date Procedure Procedure Detail Performing Clinician Start: 09-28-2001 CONVERTED SURGICAL PATHOLOGY Roni Herman Corona Work Phone: Plan of Treatment Date Care Activity Detail Author Start: 12-31-2019 Influenza vaccination INFLUENZA (#1) [facility] Start: 2010 ADVANCE DIRECTIVE DISCUSSION ADVANCE DIRECTIVE DISCUSSION [facility] Start: 2010 PNEUMOVAX AGE 65 AND OVER WITH 5YR LOOKBACK (#1) PNEUMOVAX AGE 65 AND OVER WITH 5YR LOOKBACK (#1) [facility] Start: 08-28-1995 SHINGRIX VACCINE (1 of 2) QUINTERO GRIX VACCINE (1 of 2) [facility] Start: 08-28-1995 Tuberculosis screening COLOREC SLIME CANCER SCREENING,SEE MODIFIER [facility] Start: 1990 DIABETES SCREEN DIABETES SCREEN [facility] Start: 1980 LIPID SCREEN LIPID SCREEN [facility] Start: 1964 Urine microalbumin profile DTAP,TDAP ,TD (1 - Tdap) [facility] Start: 08-28-1963 ANNUAL PCP TEAM SOFTWARE ENGINEER ESEQUIEL DISEASE VISIT ANNUAL PCP TEAM CHRONIC DISEASE VISIT [facility] Start: 08-28-1963 BP CONTROLLED (<130/80) BP CONTROLLE D (<130/80) [facility] Start: 08-28-1963 HEPATITIS C SCREENING HEPATITIS C SC NORA [facility] Social History Date Type Detail Facility Tobacco smoking status NHIS Unknown if ev er smoked [facility] Sex Assigned At Not on file [facility] Ex-smoker (finding) [facility] Sex Assigned At [facility] Hospital Discharge instructions 04-23-2021 Note Date [...] painful when eating. You may use an nrmh-jtx-hzxozrb local numbing solution for pain relief. If [...] off before 7 days Wound edges re-open [id number] [employer] [address] [place] [address]. All rights reserved. This information is not intended as a substitute for professional medical care. Always follow your healthcare professional's instructions. Follow Up Care 04/22/2021 22:28:10 With:PA, CLINIC Address: [address] [place] [id number]- When:2-4 days With:PA, CLINIC Address: [address] [place], [place] [id number]- When:2-4 days With:PA, CLINIC Address: [address] [place] [address]- When:2-4 days [facility] Hospital Discharge instructions 04-22-2021 Note [...] affected hand Decreased movement of the hand [phone] [employer] [address] [place] [address]. All rights reserved. This information is not [...] some information about medicine: You may use aqlg-fws-ivudrjv medicine such as acetaminophen or ibuprofen to [...] re-open Bleeding not controlled by direct pressure [phone] [employer] [address] [place], [place] [id number]. All rights reserved. This information is not [...] splint gets wet, dry it with a biology department chair on a cool setting. You may use qkpj-dyp-eciadnn pain medicine to control pain, unless another [...] or as directed by your provider Adriana [phone] [employer] [address] [place] [address]. All rights reserved. This information is not [...] wet, you can dry it with a biology department chair. You may use acetaminophen or [...] or as directed by your healthcare provider [phone] [employer] [address] [place] [address], [place] [address]. All rights reserved. This information is not intended as a substitute for professional medical care. Always follow your healthcare professional's instructions. Follow Up Care 04/22/2021 14:39:00 With:TAMMY NAVARRO MD Address: [id number] When:5 to 7 days Comments:Call tomorrow [facility] Evaluation + Plan note Note Date & Type Note Facility Evaluation + Plan note No data available for this section [facility] Summary Purpose Family History No [...] or prosecute any alcohol or drug abuse patient.[facility] (unrecognized sect ion and content) No Status [...] BE BASED ON THE PRIMARY CLINICAL RECORDS. [facility] provides no warranty or guarantee of the accuracy or completeness of information in this document.
--- NOTE | 2023-05-19 00:37 | MRI_ITS ---
EXAM: MRCP PROTOCOL CLINICAL INDICATION: Newly diagnosed pancreatic head mass on CT, BLEEDING OUT LT EAR TECHNIQUE: Multiplanar and multisequence MR images of the abdomen without intravenous contrast obtained with MRCP sequence. Three-dimensional post-processing reconstructions were performed. COMPARISON: CT chest with contrast 05/18/2023. FINDINGS: LOWER THORAX: Bibasilar atelectasis and small pleural effusions. LIVER: Mild hepatic steatosis. GALLBLADDER AND BILE DUCTS: Gallbladder is not identified. No intra- or extrahepatic biliary ductal dilation. No choledochal filling defect. PANCREAS: No definite pancreatic mass is seen however the exam was performed with MRCP protocol and was not tailored to evaluate the pancreas. Further evaluation with dedicated MRI of the pancreas or CT scan with contrast might be of value. SPLEEN: Unremarkable. Non-enlarged. ADRENALS: No nodules. KIDNEYS AND URETERS: Normal renal size and position. No hydronephrosis. INTRAPERITONEAL SPACE: No ascites or other fluid collection. VASCULATURE: Abdominal aorta is non-dilated. LYMPH NODES: No enlarged lymph nodes. MRI/MRCP Abdomen without Contrast IMPRESSION: 1. No biliary dilation or choledocholithiasis. 2. No definite pancreatic mass is seen however, the exam was not tailored to evaluate the pancreas. Further evaluation with dedicated MRI of the pancreas or CT of the abdomen with contrast might be of value. Electronically Signed: Epifanio Wood MD at 11:40 EST ,
[2023-05-19] MEDS: Levothyroxine 50 MCG Tablet PO (06:28)
[2023-05-19 07:06] LABS: Hematocrit 39.5 % (40-54); Hemoglobin 12.3 g/dL (13.0-16.5); Mean Corp Hgb Conc 31.1 g/dL (32-36); Mean Corpuscular Hgb 27.1 pg (27.0-32.0); Mean Platelet Vol. 10.5 fl (6.2-12.0); POSITIVE COUNT YES; POSITIVE MORPHOLOGY YES; Platelet Count 257 K/mm3 (150-450); RBC Distribution Width CV 16.3 % (11.6-14.6); RBC Distribution Width SD 52.6 fl (35.1-43.9); Red Blood Count 4.54 M/mm3 (4.6-6.2); White Blood Count 22.6 K/mm3 (4.4-11.0)
[2023-05-19 07:08] LABS: Differential Indicated MANUAL DIFF
[2023-05-19 07:27] LABS: Lymphocyte 7 % (19-41); Monocyte 11 % (0-10); Myelocyte 2 % (0-0); Neutrophil-Segmented 78 % (47-70); Promyelocyte 2 % (0-0); Total Cells Counted 100 (MANUAL DIFF)
[2023-05-19 07:28] LABS: Red Cell Morphology N CYTIC NORMAL (NORM C&C)
[2023-05-19 07:50] LABS: AST(SGOT) 15 U/L (15-37); Alanine Aminotransfer ALT/SGPT 36 U/L (16-61); Albumin, Serum 3.2 g/dL (3.2-5.0); Alkaline Phosphatase 220 U/L (45-117); Anion Gap 4 (5-15); BUN 8 mg/dL (7-18); BUN/Creat Ratio 10.8 RATIO (10-20); Calcium,Total 9.3 mg/dL (8.5-10.1); Chloride 103 mmol/L (98-107); Creatinine, Serum 0.74 mg/dL (0.70-1.30); EST Glomerular Filtration Rate 109 mL/min (>60); Est Glom Filt Rate - Afr Amer 131 mL/min (>60); Estimated Creatinine Clearance 94.94 ml/min; Globulin 3.2 g/dL (2.2-4.2); Glucose 117 mg/dL (74-106); Magnesium 2.1 mg/dL (1.6-2.6); Phosphorus 3.2 mg/dL (2.5-4.9); Potassium 3.8 mmol/L (3.5-5.1); Protein, Total 6.4 g/dL (6.4-8.2); Sodium Level 136 mmol/L (136-145); Thyroid Stim Hormone (TSH) 0.85 uIU/mL (0.358-3.74)
[2023-05-19 08:24] LABS: International Normalized Ratio 2.3; Prothrombin Time (Protime)PT. 25.3 SECONDS (11.7-14.9)
[2023-05-19] MEDS: LORazepam 1 MG Tablet 2 MG PO (08:56)
[2023-05-19] MEDS: Aspirin 81 MG TAB.CHEW PO (08:59)
[2023-05-19] MEDS: Ascorbic Acid 500 MG Tablet 1000 MG PO ×2 (08:59→18:00)
[2023-05-19] MEDS: Allopurinol 100 MG Tablet PO (08:59)
[2023-05-19] MEDS: Potassium Chloride Oral Tablet 20 MEQ 40 MEQ PO (09:00)
[2023-05-19] MEDS: Gabapentin 300 MG Capsule PO (09:00)
[2023-05-19] MEDS: 0.9% Saline Lock 10 ML Syringe IV ×2 (09:02→19:47)
[2023-05-19] MEDS: Tamsulosin HCl 0.4 MG Capsule 0.400000000000000022 MG PO (09:02)
[2023-05-19] MEDS: Finasteride 5 MG Tablet PO (09:03)
[2023-05-19] MEDS: Pantoprazole Sodium 40 MG Tablet PO ×2 (09:03→19:52)
[2023-05-19] MEDS: Zinc Sulfate 50 mg zinc (220 mg) ORAL capsule PO (09:03)
[2023-05-19] MEDS: Cholecalciferol (Vit D3) 125 MCG CAPSULE (5,000 UNITS) PO (09:03)
[2023-05-19] MEDS: guaiFENesin 1,200 MG Tablet 1200 MG PO ×2 (09:04→19:51)
[2023-05-19] MEDS: Isosorbide Mononitrate 30 MG Tablet PO (09:04)
[2023-05-19] MEDS: Metoprolol Tartrate 25 MG Tablet PO (09:04)
[2023-05-19] MEDS: Magnesium Chloride 64 MG Delay Rel.Tablet 128 MG PO (09:07)
[2023-05-19] MEDS: Furosemide 40 MG/4 ML Vial IV (09:07)
--- NOTE | 2023-05-19 09:20 | RAD_ITS ---
EXAM: XR ORBITS FOREIGN BODY CLINICAL INDICATION: H/O FB TECHNIQUE: Frontal view(s) of the orbits. COMPARISON: No relevant prior studies available. FINDINGS: BONES/JOINTS: Unremarkable. No acute fracture. SINUSES: Unremarkable as seen on these views. No air-fluid levels. SOFT TISSUES: No radiopaque foreign body. RAD/Orbits for Foreign Body IMPRESSION: No evidence of radiopaque foreign body. Electronically Signed: Epifanio Wood MD at 9:45 EST ,
[2023-05-19 09:37] LABS: BNP,B-Type NATRIURETIC PEPTIDE 419.5 pg/mL (0-100)
[2023-05-19] MEDS: Ferrous Sulfate 325 MG Tablet PO (11:20)
[2023-05-19] MEDS: Flu Vacc QS2023-24(65YR UP)/PF 240 MCG/0.7 ML Syringe IM (11:21)
--- NOTE | 2023-05-19 13:30 | CASEMGMT ---
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 RN?CM placed call to pt's for initial transition planning/care coordination?assessment.? RN?CM?introduced self and role at [facility].? Care providers, pharmacy, and demographics verified/updated at this time. PCP: [facility] Specialists:Junior Qa Analyst @ [facility] Preferred Pharmacy: [facility] Insurance: [facility], [facility] A Prescription Benefit:?[facility] only Living Will/HPOA:?Pt has done both LW and HCPOA, who is his , Cyndi LNOK: , Cyndi. 2 sons: Addison and Naldo Living Arrangements: Lives w/his in ranch-style home w/no steps to enter. Work-shop is in the basement, which pt does go down in once in awhile. Indep w/ADL's and manages his own medications. will re-order them for pt when due. Transportation:?Pt and both drive. DME: ?Pt has a cane and hearing aide. He has a shower chair, but does not use it. No home O2. If pt qualifies for home o2 @ d/c, [facility]. She states if he would need home O2 @ discharge and would be medically ready to discharge over the w/e, she has no preference of DME co, made aware of [employer] being affialiated w/[facility] and states is okay with [employer]. She was made aware if O2 set up through [employer] @ d/c, then to have pt f/u @ [place] to get O2 from them, if O2 is continued to be needed. Pt does not have a pulse ox. states they can afford to buy one and made aware of locations where this could be purchased. states does not anticipate further DME at this time.? 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 does not anticipate pt will need HHC @ d/c. PT/OT evals pending. wishes for pt to return home and states has no concerns with going home at time of discharge.? CM?to follow for home oxygen needs and any further discharge planning/needs.? voices no further concerns/needs at this time.? PLAN:??Home. Follow for possible home o2 @ d/c. Green sheet placed on chart. PT/OT evals pending. Follow. Basil BSN?RN?CM
[2023-05-19 14:08] LABS: Absolute Neutrophil Count 17.6 X10^3/uL (2.0-7.7)
[2023-05-19 14:46] LABS: M R Staph aureus DNA By PCR Negative (Negative); Probe Check PASS; Specimen Processing Control PASS
[2023-05-19 15:02] LABS: Pathologist Review Reviewed
[2023-05-19] MEDS: Azithromycin 250 MG in Dextrose 5%-Water (250mL Bag) 250 ML IV (19:46)
[2023-05-19] MEDS: Atorvastatin Calcium 80 MG Tablet PO (19:51)
--- NOTE | 2023-05-19 20:22 | PN.HOSP_ITS ---
Reason for Visit Reason for Visit: Diagnoses Heart failure, unspecified (05/19/23) Pneumonia, unspecified organism (05/19/23) Other specified diseases of pancreas (05/19/23) Subjective Subjective Patient was seen and examined today, patient underwent an MRCP which showed no evidence of pancreatic cancer. Patient's family was in the room, I talked with him today during the time my visit. Patient is currently on 2 L of oxygen via nasal cannula Objective Data Objective Data Vital Signs: Vital Signs Temp Pulse Resp BP Pulse Ox O2 Del Method O2 Flow Rate 97.8 F 64 16 155/78 H 97 Nasal Cannula 2 05/19/23 18:00 05/19/23 18:00 05/19/23 18:00 05/19/23 18:00 05/19/23 18:00 05/19/23 18:00 05/19/23 18:00 Oxygen Flow Rate (L/min) 2 Oxygen Delivery Method Nasal Cannula Weight: 107.5 kg Body Mass Index (BMI) 34.0 Intake & Output: Intake and Output for Last 24 Hours 05/17/23 05/18/23 05/19/23 23:59 23:59 23:59 Intake Total 665 / 665 Output Total 3300 / 3300 Balance -2635 / -2635 Lab / Micro Data 05/19/23 06:40 05/19/23 06:40 Labs: Laboratory Results - last 24 hr 05/18/23 20:35: Urine Color Yellow, Urine Clarity Clear, Urine pH 7.0, Ur Specific Mcgregor 1.005, Urine Protein Negative, Urine Glucose (UA) Normal, Urine Ketones Negative, Urine Occult Blood 10 H, Urine Nitrite Negative, Urine Bilirubin Negative, Urine Urobilinogen 4 H, Ur Leukocyte Esterase 25 H, Urine RBC 0 SEEN, Urine WBC 0-5 SEEN, Ur Squamous Epith Cells 0 SEEN, Urine Bacteria 0 SEEN, Urine Mucus 0 SEEN 05/18/23 20:37: WBC 19.8 H, RBC 4.65, Hgb 12.9 L, Hct 41.0, MCV 88.2, MCH 27.7, MCHC 31.5 L, RDW Std Deviation 52.8 H, RDW Coeff of Clement 16.3 H, Plt Count 254, MPV 10.8, Neut % (Auto) Not Reportable, Absolute Neuts (auto) 15.6 H, Absolute Lymphs (auto) 0.99, Total Counted 100, Neutrophils % (Manual) 77 H, Band Neutrophils % 2, Lymphocytes % (Manual) 5 L, Monocytes % (Manual) 6, Metamyelocytes % 2 H, Myelocytes % 8 H, Diff Path Review Reviewed, Platelet Estimate ADEQUATE, RBC Morphology NORM C+C, Anisocytosis RARE, Macrocytosis RA RE, Ovalocytes RARE, PT 27.7 H, INR 2.5, Sodium 138, Potassium 3.8, Chloride 105, Carbon Dioxide 28.0, Anion Gap 5, BUN 9, Creatinine 0.80, Est GFR (MDRD) Af Amer 121, Est GFR (MDRD) Non-Af 100, BUN/Creatinine Ratio 11.3, Glucose 112 H, Calcium 9.1, Total Bilirubin 1.20 H, Direct Bilirubin 0.42 H, AST 22, ALT 41, Alkaline Phosphatase 234 H, Troponin I High Sens 12, B-Natriuretic Peptide 399.2 H, Total Protein 6.6, Albumin 3.4, Globulin 3.2, Lipase 30 05/19/23 06:40: WBC 22.6 H, RBC 4.54 L, Hgb 12.3 L, Hct 39.5 L, MCV 87.0, MCH 27.1, MCHC 31.1 L, RDW Std Deviation 52.6 H, RDW Coeff of Clement 16.3 H, Plt Count 257, MPV 10.5, Neut % (Auto) Not Reportable, Absolute Neuts (auto) 17.6 H, Absolute Lymphs (auto) 1.60, Total Counted 100, Neutrophils % (Manual) 78 H, Lymphocytes % (Manual) 7 L, Monocytes % (Manual) 11 H, Myelocytes % 2 H, Promyelocytes % 2 H, Diff Path Review May , RBC Morphology N CYTIC, PT 25.3 H, INR 2.3, Sodium 136, Potassium 3.8, Chloride 103, Carbon Dioxide 29.0, Anion Gap 4 L, BUN 8, Creatinine 0.74, Estim Creat Clear Calc 94.94, Est GFR (MDRD) Af Amer 131, Est GFR (MDRD) Non-Af 109, BUN/Creatinine Ratio 10.8, Glucose 117 H, Calcium 9.3, Phosphorus 3.2, Magnesium 2.1, Total Bilirubin 1.30 H, AST 15, ALT 36, Alkaline Phosphatase 220 H, B-Natriuretic Peptide 419.5 H, Total Protein 6.4, Albumin 3.2, Globulin 3.2, Albumin/Globulin Ratio 1.0, TSH 0.85 05/19/23 13:20: MRSA (PCR) Negative Micro: Microbiology 05/19/23 08:18 Urine, Clean Catch Streptococcus pneumoniae Antigen (M - Final 05/19/23 01:24 Mucosa - Nasopharyngeal Respiratory Panel (PCR) - Final 05/19/23 00:48 Urine, Random Legionella Antigen - Final 05/19/23 00:48 Urine, Random Streptococcus pneumoniae Antigen (M - Final 05/18/23 21:21 Mucosa - Nose SARS-CoV-2, Influenza & RSV (PCR) - Final Radiography Diagnostic Testing: Radiology Impression Chest X-Ray 05/18/23 21:20 IMPRESSION: ASHD. No acute cardiopulmonary pathology Electronically Signed: Diego Sanchez MD at 21:38 EST , Chest CT 05/18/23 21:59 IMPRESSION: Small bilateral pleural effusions and bibasilar atelectasis or infiltrate. Incidental findings including apparent enlargement of the pancreatic head and uncinate process possibly due to chronic pancreatitis or neoplasm. Clinical correlation recommended as well as MRI/MRCP Small bilateral pleural effusions and bibasilar atelectasis or infiltrate. Electronically Signed: Diego Sanchez MD at 22:49 EST , MRCP 05/19/23 00:37 IMPRESSION: 1. No biliary dilation or choledocholithiasis. 2. No definite pancreatic mass is seen however, the exam was not tailored to evaluate the pancreas. Further evaluation with dedicated MRI of the pancreas or CT of the abdomen with contrast might be of value. Electronically Signed: Epifanio Wood MD at 11:40 EST , Orbit X-Ray 05/19/23 09:20 IMPRESSION: No evidence of radiopaque foreign body. Electronically Signed: Epifanio Wood MD at 9:45 EST , Physical Exam Const alert, oriented x3, no apparent distress and healthy appearing General Appearance: cooperative, well kempt and well developed Orientation / Consciousness: awake, oriented to person, oriented to place and oriented to time HEENT normocephalic, head/scalp atraumatic and moist oral mucous membranes Eyes PERRL, EOMs intact bilaterally and conjunctivae normal Neck supple, no JVD, thyroid normal and no carotid bruits General: trachea midline Resp normal respiratory effort, no retractions, no use of accessory muscles and clear to auscultation bilaterally Auscultation: Negative for rales, rhonchi or wheezes Cardio regular rate, regular rhythm, S1 normal heart sound, S2 normal heart sound, no rub and no gallops Cardio Narrative: Patient has mechanical heart valve sound over the precordium GI normal to inspection, nondistended, normoactive bowel sounds, soft to palpation, non-tender and non-distended Extremity no clubbing, cyanosis or edema Skin no rashes or lesions noted General Skin Exam: no breakdown Neuro oriented x3, CN's II-XII intact bilaterally, moves all extremities, no focal motor deficits and no sensory deficits noted Sensorium / Orientation: awake and alert Speech: speech normal Psych affect normal Assessment & Plan Assessment/Plan (1) Pneumonia: QUALIFIERS: Pneumonia type: due to unspecified organism Laterality: bilateral Lung location: unspecified part of lung Qualified Code(s): J18.9 - Pneumonia, unspecified organism PLAN: Plan 1. Bibasilar pneumonia-patient's white blood cell count today was 22.6, CBC will be repeated tomorrow, continue present antibiotic coverage #2 acute congestive heart failure-patient will have an echocardiogram performed, he remains on IV Lasix at this time #3 mechanical heart valve (aortic)-patient remains on warfarin, INR will be monitored as needed #4 hyperlipidemia-patient is on atorvastatin #5 hypoxia secondary to #1 and #2-patient remains on 2 L of oxygen via nasal cannula, pulse ox will be monitored Total clinical time spent by myself addressing the patient's medical issues, reviewing all of his data, and collaborating with patient's care team: 35 minutes Charges/Coding Visit Charges Inpatient E&M: 68932 Subs Hosp L2
[2023-05-19] MEDS: Ceftriaxone 1 GM/50 ML BAG IV (21:24)
[2023-05-20] VITALS (8 sets, daily range): BP systolic 114–160; BP diastolic 57–84; PULSE 70–94; RESP 16–18; TEMP 36.1–36.9; O2SAT 93–96; BMI 33.3
[2023-05-20] MEDS: Levothyroxine 50 MCG Tablet PO (04:50)
--- NOTE | 2023-05-20 05:55 | ECHOCS_ITS ---
Reason For Study: CHF Procedure This was a 2D Doppler, Color Flow transthoracic echocardiogram. Contrast injection was performed. Exam performed portable in patient room. Left Ventricle Normal left ventricle. The estimated ejection fraction is 55-60 %. Right Ventricle Normal right ventricle. Normal systolic function. Atria Normal left atrium. Normal right atrium. Mitral Valve The mitral valve is structurally normal. No prolapse or stenosis seen. Tricuspid Valve Normal tricuspid valve. Aortic Valve Moerate size Hyperechogenic structure noted on Mechanical AV. Trivial aortic valve insufficiency. Pulmonic Valve The pulmonic valve is not well visualized. Great Vessels Normal aortic root. Medication Diluted definity 2.5ml given slow IV push to enhance endocardial definition. MMode/2D Measurements & Calculations LVIDd: 3.9 cm IVSd: 1.3 cm LVOT diam: 2.0 cm LVIDs: 2.4 cm LVPWd: 1.5 cm LVOT area: 3.3 cm2 RVDd: 4.1 cm FS: 38.4 % Ao root diam: 3.3 cm LAV(MOD-bp): 90.8 ml LVAd ap4: 37.3 cm2 LAV(MOD-bp) Indexed: 40.4 ml/m2 LVLd ap4: 8.2 cm LAV(MOD-sp2): 81.7 ml EDV(MOD-sp4): 136.7 ml LAV(MOD-sp4): 91.3 ml EDV(sp4-el): 144.8 ml LVAs ap4: 20.5 cm2 LVLs ap4: 7.6 cm ESV(MOD-sp4): 48.0 ml ESV(sp4-el): 47.2 ml EF(MOD-sp4): 64.9 % EF(sp4-el): 67.4 % SV(MOD-sp4): 88.7 ml SV(sp4-el): 97.7 ml LA A4 area: 29.2 cm2 LA dimension(2D): 5.5 cm RA A4 area: 24.0 cm2 TAPSE: 1.9 cm Doppler Measurements & Calculations MV E max german: 113.8 cm/sec Lat Peak E' German: 11.7 cm/sec Med Peak E' German: 8.5 cm/sec E/E' lat: 9.7 E/E' med: 13.3 MV V2 max: 119.6 cm/sec Ao V2 max: 320.1 cm/sec LV V1 max: 137.2 cm/sec MV max P.7 mmHg Ao max P.4 mmHg LV V1 max P.5 mmHg MV V2 mean: 59.1 cm/sec Ao V2 mean: 230.7 cm/sec LV V1 mean P.2 mmHg MV mean P.9 mmHg Ao mean P.2 mmHg LV V1 mean: 111.3 cm/sec MV V2 VTI: 33.0 cm Ao V2 VTI: 67.2 cm LV V1 VTI: 31.8 cm AV (velocity ratio): 0.47 MVA(VTI): 3.1 cm2 NONA(I,D): 1.5 cm2 NONA(V,D): 1.4 cm2 SV(LVOT): 103.3 ml PA V2 max: 99.8 cm/sec TR max german: 307.7 cm/sec TR max P.9 mmHg ECHO/Echo Complete W/ Contrast Interpretation Summary The estimated ejection fraction is 55-60 %. Moerate size Hyperechogenic structure noted on Mechanical AV Recommendation: Consider EDGAR ,Evaluation Ordering Physician: Constantino Albarado Referring Physician: [facility] Performed By: Kandace Ayoub, DONALD, RVT
--- NOTE | 2023-05-20 06:10 | RAD_ITS ---
EXAM: XR CHEST, 2 VIEWS CLINICAL INDICATION: Pneumonia-486 TECHNIQUE: Frontal and lateral views of the chest. COMPARISON: 05/18/2023. FINDINGS: LUNGS AND PLEURAL SPACES: Unremarkable. No consolidation or edema. No pneumothorax. No effusion. HEART: Stable mild cardiomegaly. MEDIASTINUM: Central airways and mediastinal contour are unremarkable. BONES/JOINTS: Sternal wires. No acute fracture. SOFT TISSUES: Unremarkable. VASCULATURE: Aortic valvuloplasty. RAD/Chest PA and Lateral IMPRESSION: 1. Stable mild cardiomegaly. 2. No acute cardiopulmonary abnormality. Electronically Signed: Sushil Hancock MD at 7:06 EST ,
[2023-05-20] MEDS: Ascorbic Acid 500 MG Tablet 1000 MG PO ×2 (08:27→16:18)
[2023-05-20] MEDS: Tamsulosin HCl 0.4 MG Capsule 0.400000000000000022 MG PO (08:27)
[2023-05-20] MEDS: Finasteride 5 MG Tablet PO (08:27)
[2023-05-20] MEDS: Allopurinol 100 MG Tablet PO (08:27)
[2023-05-20] MEDS: Metoprolol Tartrate 25 MG Tablet PO (08:27)
[2023-05-20] MEDS: Isosorbide Mononitrate 30 MG Tablet PO (08:27)
[2023-05-20] MEDS: Pantoprazole Sodium 40 MG Tablet PO ×2 (08:27→20:08)
[2023-05-20] MEDS: Gabapentin 300 MG Capsule PO (08:27)
[2023-05-20] MEDS: Magnesium Chloride 64 MG Delay Rel.Tablet 128 MG PO (08:27)
[2023-05-20] MEDS: Potassium Chloride Oral Tablet 20 MEQ 40 MEQ PO (08:28)
[2023-05-20] MEDS: Cholecalciferol (Vit D3) 125 MCG CAPSULE (5,000 UNITS) PO (08:28)
[2023-05-20] MEDS: Aspirin 81 MG TAB.CHEW PO (08:28)
[2023-05-20] MEDS: Zinc Sulfate 50 mg zinc (220 mg) ORAL capsule PO (08:28)
[2023-05-20] MEDS: guaiFENesin 1,200 MG Tablet 1200 MG PO ×2 (08:28→20:08)
[2023-05-20 08:58] LABS: Hematocrit 39.9 % (40-54); Hemoglobin 12.6 g/dL (13.0-16.5); Mean Corp Hgb Conc 31.6 g/dL (32-36); Mean Corpuscular Hgb 27.8 pg (27.0-32.0); Mean Corpuscular Volume 88.1 fL (80-94); Mean Platelet Vol. 10.5 fl (6.2-12.0); Platelet Count 256 K/mm3 (150-450); RBC Distribution Width CV 16.3 % (11.6-14.6); RBC Distribution Width SD 52.5 fl (35.1-43.9); Red Blood Count 4.53 M/mm3 (4.6-6.2); White Blood Count 17.3 K/mm3 (4.4-11.0)
[2023-05-20 09:12] LABS: Anion Gap 3 (5-15); BUN 13 mg/dL (7-18); BUN/Creat Ratio 18.8 RATIO (10-20); Calcium,Total 8.9 mg/dL (8.5-10.1); Chloride 104 mmol/L (98-107); Creatinine, Serum 0.69 mg/dL (0.70-1.30); EST Glomerular Filtration Rate 118 mL/min (>60); Est Glom Filt Rate - Afr Amer 142 mL/min (>60); Estimated Creatinine Clearance 94.06 ml/min; Glucose 107 mg/dL (74-106); Potassium 3.6 mmol/L (3.5-5.1); Sodium Level 137 mmol/L (136-145)
[2023-05-20] MEDS: 0.9% Saline Lock 10 ML Syringe IV ×2 (10:40→15:40)
[2023-05-20] MEDS: Furosemide 40 MG/4 ML Vial IV (10:40)
[2023-05-20] MEDS: Ferrous Sulfate 325 MG Tablet PO (12:14)
--- NOTE | 2023-05-20 14:05 | PCM.PN.HOSP ---
Reason for Visit Reason for Visit: Diagnoses Heart failure, unspecified (05/19/23) Pneumonia, unspecified organism (05/19/23) Other specified diseases of pancreas (05/19/23) Subjective Subjective Patient seen at bedside this morning. Was having his echocardiogram done during our interview. Patient was breathing well on room air. Has been having good urine output over the last day or so. States that shortness of breath with exertion has improved. Denies any cough or sputum production today. Denies any wheezing. No other acute pain or discomfort today. No other acute concerns. Objective Data Objective Data Vital Signs: Vital Signs Temp Pulse Resp BP Pulse Ox O2 Del Method O2 Flow Rate 98.1 F 70 18 118/78 94 Room Air 2 05/20/23 12:13 05/20/23 12:13 05/20/23 12:13 05/20/23 12:13 05/20/23 12:13 05/20/23 12:13 05/20/23 08:30 Oxygen Flow Rate (L/min) 2 Oxygen Delivery Method Room Air Weight: 105.5 kg Body Mass Index (BMI) 33.3 Intake & Output: Intake and Output for Last 24 Hours 05/18/23 05/19/23 05/20/23 23:59 23:59 23:59 Intake Total 967.5 / 1207.5 780 / 780 Output Total 3300 / 3700 1200 / 1200 Balance -2332.5 / -2492.5 -420 / -420 Lab / Micro Data 05/20/23 08:38 05/20/23 08:38 Labs: Laboratory Results - last 24 hr 05/18/23 20:37: Diff Path Review Reviewed 05/19/23 06:40: Absolute Neuts (auto) 17.6 H, Absolute Lymphs (auto) 1.60 05/19/23 13:20: MRSA (PCR) Negative 05/20/23 08:38: WBC 17.3 H, RBC 4.53 L, Hgb 12.6 L, Hct 39.9 L, MCV 88.1, MCH 27.8, MCHC 31.6 L, RDW Std Deviation 52.5 H, RDW Coeff of Clement 16.3 H, Plt Count 256, MPV 10.5, Sodium 137, Potassium 3.6, Chloride 104, Carbon Dioxide 30.0, Anion Gap 3 L, BUN 13, Creatinine 0.69 L, Estim Creat Clear Calc 94.06, Est GFR (MDRD) Af Amer 142, Est GFR (MDRD) Non-Af 118, BUN/Creatinine Ratio 18.8, Glucose 107 H, Calcium 8.9 Micro: Microbiology 05/19/23 08:18 Urine, Clean Catch Streptococcus pneumoniae Antigen (M - Final 05/19/23 01:24 Mucosa - Nasopharyngeal Respiratory Panel (PCR) - Final 05/19/23 00:48 Urine, Random Legionella Antigen - Final 05/19/23 00:48 Urine, Random Streptococcus pneumoniae Antigen (M - Final 05/18/23 21:21 Mucosa - Nose SARS-CoV-2, Influenza & RSV (PCR) - Final Radiography Diagnostic Testing: Radiology Impression Echocardiogram 05/20/23 05:55 Interpretation Summary The estimated ejection fraction is 55-60 %. Moerate size Hyperechogenic structure noted on Mechanical AV Recommendation: Consider EDGAR ,Evaluation Ordering Physician: Constantino Albarado Referring Physician: [facility] Performed By: Kandace Ayoub, WILLICS, RVT Chest X-Ray 05/20/23 06:10 IMPRESSION: 1. Stable mild cardiomegaly. 2. No acute cardiopulmonary abnormality. Electronically Signed: Sushil Hancock MD at 7:06 EST , Physical Exam Const alert, oriented x3 and no apparent distress Constitutional Narrative: Elderly male, obese, sitting up comfortably in bed, conversing normally, no acute distress. General Appearance: cooperative and comfortable HEENT normocephalic, head/scalp atraumatic, hearing grossly normal bilaterally, nasal mucous membranes and turbinates normal and moist oral mucous membranes Eyes PERRL, EOMs intact bilaterally and conjunctivae normal Neck full ROM, no lymphadenopathy and supple Lymph Lymphatic: no lymphadenopathy noted Chest inspection of chest normal Resp normal respiratory effort, normal air movement, no use of accessory muscles and clear to auscultation bilaterally Cardio regular rate, regular rhythm, no murmurs and peripheral pulses 2+ throughout GI normal to inspection, nondistended, normoactive bowel sounds, soft to palpation, non-tender and non-distended Back/Spine normal ROM Extremity normal to inspection, full ROM and no pedal edema Skin no rashes or lesions noted Neuro no focal motor deficits and no sensory deficits noted Speech: speech normal Psych mental status grossly normal Assessment & Plan Assessment/Plan (1) CHF exacerbation: QUALIFIERS: Heart failure type: unspecified Qualified Code(s): I50.9 - Heart failure, unspecified (2) Mass of head of pancreas: (3) Aortic valve mass: (4) Leukocytosis: (5) Hypoxia: PLAN: Plan Patient is a 77-year-old male who presented to [facility] ED on 05/18/2023 with worsening cough and shortness of breath. 1. HFpEF exacerbation with acute hypoxia, concern for mass on mechanical aortic valve Presented with cough and worsening shortness of breath. CT chest on admit showed small bilateral pleural effusions with bibasilar atelectasis versus infiltrate. BNP 399. TTE 05/20 showed EF 55 to 60%, moderate-sized hyperechogenic structure noted on mechanical aortic valve. Blood cultures 05/19 negative to this point. Highest concern at this time is for endocarditis (possibly culture-negative endocarditis) causing aortic valve insufficiency and volume overload. ? Cardiology consulted. Continue IV Lasix 40 mg daily for now. Required up to 3 L nasal cannula on admit, now stable on room air at rest. Suspect patient will need EDGAR likely on Monday, will follow-up cardiology recommendations. Antibiotics as noted below. 2. Leukocytosis, improving; concern for community-acquired pneumonia ? WBC count 19.8 on admit. Started on IV ceftriaxone and azithromycin for CAP coverage given chest imaging findings. Have lower concern for pneumonia at this time, highest concern is for endocarditis as noted above. Broadened to vancomycin and Zosyn on 05/20. Trend CBC. 3. Incidentally noted enlargement of pancreatic head and uncinate process ? Incidentally noted mass on chest CT on admit. MRCP 05/19 showed no definitive pancreatic mass, no biliary dilation or choledocholithiasis; however the exam was not tailored to evaluate the pancreas. Gastroenterology consulted. Appreciate GI recs on need for possible further imaging to evaluate for a pancreatic mass. Chronic medical conditions: ? Chronic A-fib, history of mechanical aortic valve: Continue home Coumadin. ? History of CAD with stenting, hypertension, hyperlipidemia: Continue home aspirin, statin, nitrate, metoprolol. ? Hypothyroidism: Continue home Synthroid. ? GERD: Continue home PPI. ? Chronic neuropathy: Continue home gabapentin. ? BPH with obstructive symptoms: Continue home Flomax and finasteride. ? History of gout: Continue home allopurinol. DVT prophylaxis: Warfarin CODE STATUS: Full code, verified Expected disposition: Home, TBD Total clinical time spent by myself addressing the patient's medical issues, reviewing all the data, and collaborating with patient's care team: 35 minutes. Charges/Coding Visit Charges Inpatient E&M: 96438 Subs Hosp L2
[2023-05-20] MEDS: Piperacil/Tazobactam 4.5 GM in 0.9% Normal Saline (100mL MB+) 100 ML IV (15:40)
[2023-05-20] MEDS: Vancomycin HCl 2,000 MG in 0.9% Normal Saline (500mL Bag) 500 ML 250 MG IV (16:21)
--- NOTE | 2023-05-20 16:25 | PCM.RX.CS ---
Consult Antibiotic Management Pharmacy has been consulted to manage selected antibiotic: Vancomycin Type of Intervention Type of Consult: New start Suspected Infection Suspected Infection: Pneumonia and Endocarditis Prior Doses of Antibiotics Prior Doses of Antibiotics Received/Current Regimen: Vancomycin 2000 mg IV x 1 given 05/20/23 @ 1621, patient is also prescribed piperacillin/tazobactam 3.375 grams Q8H Labs Labs: Sodium 137 mmol/L (136-145) 05/20/23 08:38 Potassium 3.6 mmol/L (3.5-5.1) 05/20/23 08:38 Chloride 104 mmol/L (98-107) 05/20/23 08:38 Carbon Dioxide 30.0 mmol/L (21.0-32.0) 05/20/23 08:38 Anion Gap 3 (5-15) L 05/20/23 08:38 BUN 13 mg/dL (7-18) 05/20/23 08:38 Creatinine 0.69 mg/dL (0.70-1.30) L 05/20/23 08:38 Est GFR (MDRD) Af Amer 142 mL/min (>60) 05/20/23 08:38 Est GFR (MDRD) Non-Af 118 mL/min (>60) 05/20/23 08:38 BUN/Creatinine Ratio 18.8 RATIO (10-20) 05/20/23 08:38 Glucose 107 mg/dL (74-106) H 05/20/23 08:38 Microbiology Microbiology: Microbiology 05/19/23 08:18 Urine, Clean Catch Streptococcus pneumoniae Antigen (M - Final 05/19/23 01:24 Mucosa - Nasopharyngeal Respiratory Panel (PCR) - Final 05/19/23 00:48 Urine, Random Legionella Antigen - Final 05/19/23 00:48 Urine, Random Streptococcus pneumoniae Antigen (M - Final 05/18/23 21:21 Mucosa - Nose SARS-CoV-2, Influenza & RSV (PCR) - Final Dosing Weight Weight used for dosin.5 kg Estimated Creatinine Clearance Estimated Creatinine Clearance: ~94 Goal Trough Goal Trough: 15-20 mcg/mL Pharmacy Plan for Drug Dosing Pharmacy Plan for Drug Dosing: Vancomycin 2000 mg IV x 1 followed by vancomycin 2000 mg IV Q12H, trough prior to 4th dose. Pharmacy Service will continue to monitor and adjust dosing as required. Follow-Up Labs Follow-Up Labs: Trough: Vancomycin Date/Time Labs Ordered Labs to be done on [date and time ordered]: 05/22/23 @ 3642
[2023-05-20] MEDS: Atorvastatin Calcium 80 MG Tablet PO (20:08)
[2023-05-20] MEDS: Piperacil/Tazobactam 3.375 GM in 0.9% Normal Saline (50mL MB+) 50 ML IV (20:42)
[2023-05-21] VITALS (9 sets, daily range): BP systolic 116–152; BP diastolic 58–74; PULSE 71–92; RESP 16–18; TEMP 36.3–36.6; O2SAT 94–95; BMI 33.3
[2023-05-21] MEDS: MELATONIN 3 MG TABLET PO ×2 (01:22→23:03)
[2023-05-21] MEDS: Piperacil/Tazobactam 3.375 GM in 0.9% Normal Saline (50mL MB+) 50 ML IV ×3 (05:28→23:03)
[2023-05-21] MEDS: Levothyroxine 50 MCG Tablet PO (05:30)
[2023-05-21 07:33] LABS: Hematocrit 36.8 % (40-54); Hemoglobin 11.6 g/dL (13.0-16.5); Mean Corp Hgb Conc 31.5 g/dL (32-36); Mean Corpuscular Hgb 27.4 pg (27.0-32.0); Mean Corpuscular Volume 86.8 fL (80-94); Mean Platelet Vol. 10.3 fl (6.2-12.0); Platelet Count 241 K/mm3 (150-450); RBC Distribution Width CV 16.2 % (11.6-14.6); RBC Distribution Width SD 51.5 fl (35.1-43.9); Red Blood Count 4.24 M/mm3 (4.6-6.2); White Blood Count 15.8 K/mm3 (4.4-11.0)
[2023-05-21 08:04] LABS: Anion Gap 3 (5-15); BUN 13 mg/dL (7-18); BUN/Creat Ratio 17.8 RATIO (10-20); Calcium,Total 8.8 mg/dL (8.5-10.1); Chloride 108 mmol/L (98-107); Creatinine, Serum 0.73 mg/dL (0.70-1.30); EST Glomerular Filtration Rate 111 mL/min (>60); Est Glom Filt Rate - Afr Amer 134 mL/min (>60); Estimated Creatinine Clearance 93.93 ml/min; Glucose 105 mg/dL (74-106); Potassium 4.1 mmol/L (3.5-5.1); Sodium Level 139 mmol/L (136-145)
[2023-05-21] MEDS: Potassium Chloride Oral Tablet 20 MEQ 40 MEQ PO (08:56)
[2023-05-21] MEDS: Aspirin 81 MG TAB.CHEW PO (08:56)
[2023-05-21] MEDS: Gabapentin 300 MG Capsule PO (08:57)
[2023-05-21] MEDS: Ascorbic Acid 500 MG Tablet 1000 MG PO ×2 (08:57→16:58)
[2023-05-21] MEDS: Allopurinol 100 MG Tablet PO (08:57)
[2023-05-21] MEDS: Vancomycin HCl 2,000 MG in 0.9% Normal Saline (500mL Bag) 500 ML 250 MG IV ×2 (11:02→20:08)
[2023-05-21] MEDS: Pantoprazole Sodium 40 MG Tablet PO ×2 (11:07→22:45)
[2023-05-21] MEDS: Magnesium Chloride 64 MG Delay Rel.Tablet 128 MG PO (11:07)
[2023-05-21] MEDS: Zinc Sulfate 50 mg zinc (220 mg) ORAL capsule PO (11:08)
[2023-05-21] MEDS: Cholecalciferol (Vit D3) 125 MCG CAPSULE (5,000 UNITS) PO (11:08)
[2023-05-21] MEDS: guaiFENesin 1,200 MG Tablet 1200 MG PO ×2 (11:08→22:45)
[2023-05-21] MEDS: Finasteride 5 MG Tablet PO (11:09)
[2023-05-21] MEDS: Tamsulosin HCl 0.4 MG Capsule 0.400000000000000022 MG PO (11:09)
[2023-05-21] MEDS: 0.9% Normal Saline (250mL Bag) 250 ML 15 ML IV (11:10)
[2023-05-21] MEDS: Metoprolol Tartrate 25 MG Tablet PO (11:17)
[2023-05-21] MEDS: Isosorbide Mononitrate 30 MG Tablet PO (11:18)
[2023-05-21] MEDS: Furosemide 40 MG/4 ML Vial IV (11:21)
--- NOTE | 2023-05-21 12:14 | PCM.PN.HOSP ---
Reason for Visit Reason for Visit: Diagnoses Elevated white blood cell count, unspecified (05/19/23) Other nonrheumatic aortic valve disorders (05/19/23) Heart failure, unspecified (05/19/23) Pneumonia, unspecified organism (05/19/23) Other specified diseases of pancreas (05/19/23) Hypoxemia (05/19/23) Subjective Subjective Patient seen at bedside this morning. Sitting up comfortably in bed, conversing normally, no acute distress. Patient denies any chest pain or shortness of breath overnight. Has continued to have good urine output, denies feeling volume overloaded at this time. Denies any fevers or chills. Denies any other pain or discomfort. No other acute concerns this morning. Objective Data Objective Data Vital Signs: Vital Signs Temp Pulse Resp BP Pulse Ox O2 Del Method O2 Flow Rate 98 F 88 18 152/64 H 94 Room Air 2 05/21/23 10:30 05/21/23 11:17 05/21/23 10:30 05/21/23 11:17 05/21/23 10:30 05/21/23 10:30 05/20/23 08:30 Oxygen Flow Rate (L/min) 2 Oxygen Delivery Method Room Air Weight: 105.2 kg Body Mass Index (BMI) 33.3 Intake & Output: Intake and Output for Last 24 Hours 05/19/23 05/20/23 05/21/23 23:59 23:59 23:59 Intake Total 967.5 / 1207.5 1840 / 2080 580 / 580 Output Total 3300 / 3700 1550 / 1950 800 / 800 Balance -2332.5 / -2492.5 290 / 130 -220 / -220 Lab / Micro Data 05/21/23 06:33 05/21/23 06:33 Labs: Laboratory Results - last 24 hr 05/21/23 06:33: WBC 15.8 H, RBC 4.24 L, Hgb 11.6 L, Hct 36.8 L, MCV 86.8, MCH 27.4, MCHC 31.5 L, RDW Std Deviation 51.5 H, RDW Coeff of Clement 16.2 H, Plt Count 241, MPV 10.3, Sodium 139, Potassium 4.1, Chloride 108 H, Carbon Dioxide 28.0, Anion Gap 3 L, BUN 13, Creatinine 0.73, Estim Creat Clear Calc 93.93, Est GFR (MDRD) Af Amer 134, Est GFR (MDRD) Non-Af 111, BUN/Creatinine Ratio 17.8, Glucose 105, Calcium 8.8 Micro: Microbiology 05/19/23 00:50 Blood Culture (Wb) - Anticubital Right Blood Culture - Preliminary No growth in 48 hours. 05/19/23 00:43 Blood Culture (Wb) - Anticubital Left Blood Culture - Preliminary No growth in 48 hours. 05/19/23 08:18 Urine, Clean Catch Streptococcus pneumoniae Antigen (M - Final 05/19/23 01:24 Mucosa - Nasopharyngeal Respiratory Panel (PCR) - Final 05/19/23 00:48 Urine, Random Legionella Antigen - Final 05/19/23 00:48 Urine, Random Streptococcus pneumoniae Antigen (M - Final 05/18/23 21:21 Mucosa - Nose SARS-CoV-2, Influenza & RSV (PCR) - Final Physical Exam Const alert, oriented x3 and no apparent distress Constitutional Narrative: Elderly male, obese, sitting up comfortably in bed, conversing normally, no acute distress. General Appearance: cooperative and comfortable HEENT normocephalic, head/scalp atraumatic, hearing grossly normal bilaterally, nasal mucous membranes and turbinates normal and moist oral mucous membranes Eyes PERRL, EOMs intact bilaterally and conjunctivae normal Neck full ROM, no lymphadenopathy and supple Lymph Lymphatic: no lymphadenopathy noted Chest inspection of chest normal Resp normal respiratory effort, normal air movement, no use of accessory muscles and clear to auscultation bilaterally Cardio regular rate, regular rhythm, no murmurs and peripheral pulses 2+ throughout GI normal to inspection, nondistended, normoactive bowel sounds, soft to palpation, non-tender and non-distended Back/Spine normal ROM Extremity normal to inspection, full ROM and no pedal edema Skin no rashes or lesions noted Neuro no focal motor deficits and no sensory deficits noted Speech: speech normal Psych mental status grossly normal Assessment & Plan Assessment/Plan (1) CHF exacerbation: QUALIFIERS: Heart failure type: unspecified Qualified Code(s): I50.9 - Heart failure, unspecified (2) Mass of head of pancreas: (3) Aortic valve mass: (4) Leukocytosis: (5) Hypoxia: PLAN: Plan Patient is a 77-year-old male who presented to [facility] ED on 05/18/2023 with worsening cough and shortness of breath. 1. HFpEF exacerbation with acute hypoxia, concern for mass on mechanical aortic valve Presented with cough and worsening shortness of breath. CT chest on admit showed small bilateral pleural effusions with bibasilar atelectasis versus infiltrate. BNP 399. TTE 05/20 showed EF 55 to 60%, moderate-sized hyperechogenic structure noted on mechanical aortic valve. Blood cultures 05/19 negative to this point. Highest concern at this time is for endocarditis (possibly culture-negative endocarditis) causing aortic valve insufficiency and volume overload. ? Cardiology consulted. Transitioned to p.o. Lasix 40 mg daily on 05/21. Required up to 3 L nasal cannula on admit, now stable on room air at rest. Suspect patient will need EDGAR likely on Monday, will follow-up cardiology recommendations. Antibiotics as noted below. N.p.o. at midnight. 2. Leukocytosis, improving ? WBC count 19.8 on admit. Started on IV ceftriaxone and azithromycin for CAP coverage given chest imaging findings. Have lower concern for pneumonia at this time, highest concern is for endocarditis as noted above. Broadened to vancomycin and Zosyn on 05/20. Trend CBC. 3. Incidentally noted enlargement of pancreatic head and uncinate process ? Incidentally noted mass on chest CT on admit. MRCP 05/19 showed no definitive pancreatic mass, no biliary dilation or choledocholithiasis; however the exam was not tailored to evaluate the pancreas. Gastroenterology consulted. Appreciate GI recs on need for possible further imaging to evaluate for a pancreatic mass. Chronic medical conditions: ? Chronic A-fib, history of mechanical aortic valve: Continue home Coumadin. ? History of CAD with stenting, hypertension, hyperlipidemia: Continue home aspirin, statin, nitrate, metoprolol. ? Hypothyroidism: Continue home Synthroid. ? GERD: Continue home PPI. ? Chronic neuropathy: Continue home gabapentin. ? BPH with obstructive symptoms: Continue home Flomax and finasteride. ? History of gout: Continue home allopurinol. DVT prophylaxis: Warfarin CODE STATUS: Full code, verified Expected disposition: Home, TBD Total clinical time spent by myself addressing the patient's medical issues, reviewing all the data, and collaborating with patient's care team: 35 minutes. Charges/Coding Visit Charges Inpatient E&M: 20700 Subs Hosp L2
[2023-05-21] MEDS: Ferrous Sulfate 325 MG Tablet PO (12:25)
--- NOTE | 2023-05-21 13:04 | CON.PCM.CA_ITS ---
Assessment & Plan Assessment/Plan (1) Hypoxia: (2) Leukocytosis: (3) CHF exacerbation: QUALIFIERS: Heart failure type: unspecified Qualified Code(s): I50.9 - Heart failure, unspecified (4) Pneumonia: QUALIFIERS: Pneumonia type: due to unspecified organism Laterality: bilateral Lung location: unspecified part of lung Qualified Code(s): J18.9 - Pneumonia, unspecified organism (5) Aortic valve mass: PLAN: Plan 77-year-old patient presented to the hospital through the ER with cough and shortness of breath Noted he had hypoxia Clinical diagnosis of pneumonia, responded to IV antibiotic Symptoms improving, no further symptoms of cough he does not have any active chest pain From cardiac standpoint patient has a heart failure preserved EF/HFpEF, mechanical aortic valve done at [facility], history of atrial fibrillation. The echocardiographic evaluation/TTE/ showed hyperechogenic mass noted in the aortic valve area could represent calcification. EF within normal and no si gnificant valvular regurgitant However need to rule out vegetation based on history and current presentation with leukocytosis. Attempted prior EDGAR was not successful Cardiac care plan recommendation 77-year-old patient who presented with shortness of breath and hypoxia with a clinical diagnosis of pneumonia improving on the current treatment with IV antibiotic Patient has been on antibiotic with vancomycin and piperacillin. 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 There are no clinical signs of endocarditis and patient is responding to antibiotic treatment for the clinical diagnosis of pneumonia. Other cardiac problem include chronic A-fib with a history of mechanical aortic valve patient currently on Coumadin History of CAD with coronary artery stent hypertension hyperlipidemia and has been on statin aspirin nitrate and beta-yusra metoprolol. Cardiology team to continue monitoring and follow-up clinically. I requested 2 sets of blood cultures and sed rate. Will keep the patient n.p.o. for midnight for possible EDGAR in a.m. Explained the indication for a EDGAR to the patient as well as to the and family and nursing staff Will continue to monitor and follow-up clinically and he will be seen by the cardiac team. HPI Consult Data Date of Consult: 05/21/23 HPI Narrative Reason for Consultation: Patient with mechanical aortic valve/leukocytosis HPI Narrative: EDDIE KHALIL, is a 77 M who presents [facility] Medical History Back pain Cardiology follow-up encounter Excessive bleeding FH: bilateral hip replacements Former smoker Gastric reflux High cholesterol History of echocardiogram History of edema History of IBS History of pain when walking History of stress test Leg cramps Migraine headache Shortness of breath on exertion Sleep apnea Stroke/cerebrovascular accident Thyroid disease Wears hearing aid Home Medications warfarin 4 mg tablet (Jantoven) 4 mg PO SUTUWETHFRSA A.FIB 04/03/16 [History Last Taken 01/08/23] allopurinol 100 mg tablet 100 mg PO DAILYCM 04/04/16 [History Last Taken 05/18/23] atorvastatin 40 mg tablet 80 mg PO DAILY 04/04/16 [History Last Taken 05/18/23] ferrous sulfate 325 mg (65 mg iron) tablet 325 mg PO DAILY 04/04/16 [History Last Taken 05/18/23] isosorbide mononitrate 30 mg tablet,extended release 24 hr 30 mg PO DAILY 04/04/16 [History Last Taken 05/18/23] levothyroxine 25 mcg tablet 50 mcg PO DAILY 04/04/16 [History Last Taken 05/18/23] metoprolol tartrate 25 mg tablet 25 mg PO DAILY 04/04/16 [History Last Taken 05/18/23] pantoprazole 40 mg tablet,delayed release 40 mg PO BID 04/04/16 [History Last Taken 05/18/23] gabapentin 300 mg capsule 300 mg PO DAILY 01/10/20 [History Last Taken 05/18/23] tamsulosin 0.4 mg capsule 0.4 mg PO DAILY 07/09/22 [History Last Taken 05/18/23] aspirin 81 mg capsule 81 mg PO DAILY blood thinner 01/10/23 [History Last Taken 05/18/23] finasteride 5 mg tablet 5 mg PO DAILY 05/18/23 [History Last Taken 05/18/23] warfarin 2 mg tablet (Maytoven) 2 mg PO DAILY A.FIB 05/19/23 [History Last Taken Unknown] Allergy/AdvReac Type Severity Reaction Status Date / Time hydrocodone bitartrate Allergy Other Verified 05/18/23 17:58 [From Vicodin] Surgical History History of cardiac catheterization History of coronary artery stent placement History of heart surgery History of open heart surgery Hx laparoscopic cholecystectomy Hx of aortic valve replacement Social History household members: spouse Smoking Status: Former smoker Physical Exam Cardio Cardio Narrative: Patient seen evaluated bedside and family at bedside at time of evaluation along with the nursing staff Patient sitting out in a chair comfortable does not have any symptoms symptoms of shortness of breath 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 Risk Stratification Risk Stratification Applicable: No Objective Data Vital Signs: Vital Signs Temp Pulse Resp BP Pulse Ox O2 Del Method O2 Flow Rate 98 F 88 18 152/64 H 94 Room Air 2 05/21/23 10:30 05/21/23 11:17 05/21/23 10:30 05/21/23 11:17 05/21/23 10:30 05/21/23 10:30 05/20/23 08:30 Oxygen Flow Rate (L/min) 2 Oxygen Delivery Method Room Air Weight: 231 lb 14.821 oz Body Mass Index (BMI) 33.3 Intake & Output: Intake and Output for Last 24 Hours 05/19/23 05/20/23 05/21/23 23:59 23:59 23:59 Intake Total 967.5 / 1207.5 1840 / 2080 580 / 580 Output Total 3300 / 3700 1550 / 1950 800 / 800 Balance -2332.5 / -2492.5 290 / 130 -220 / -220 Lab / Micro Data 05/21/23 06:33 05/21/23 06:33 Labs: Laboratory Results - last 24 hr 05/21/23 06:33: WBC 15.8 H, RBC 4.24 L, Hgb 11.6 L, Hct 36.8 L, MCV 86.8, MCH 27.4, MCHC 31.5 L, RDW Std Deviation 51.5 H, RDW Coeff of Clement 16.2 H, Plt Count 241, MPV 10.3, Sodium 139, Potassium 4.1, Chloride 108 H, Carbon Dioxide 28.0, Anion Gap 3 L, BUN 13, Creatinine 0.73, Estim Creat Clear Calc 93.93, Est GFR (MDRD) Af Amer 134, Est GFR (MDRD) Non-Af 111, BUN/Creatinine Ratio 17.8, G lucose 105, Calcium 8.8 Micro: Microbiology 05/19/23 00:50 Blood Culture (Wb) - Anticubital Right Blood Culture - Preliminary No growth in 48 hours. 05/19/23 00:43 Blood Culture (Wb) - Anticubital Left Blood Culture - Preliminary No growth in 48 hours. Cardiology Labs/Tests 05/21/23 06:33: WBC 15.8 H, RBC 4.24 L, Hgb 11.6 L, Hct 36.8 L, MCV 86.8, MCH 27.4, MCHC 31.5 L, Plt Count 241, MPV 10.3, Sodium 139, Potassium 4.1, Chloride 108 H, Carbon Dioxide 28.0, Anion Gap 3 L, BUN 13, Creatinine 0.73, Est GFR (MDRD) Af Amer 134, Est GFR (MDRD) Non-Af 111, BUN/Creatinine Ratio 17.8, Glucose 105, Calcium 8.8 Rhythm: EKG: ECHO: Stress Test: Cardiac Cath: PCI: CT Surgery: Holter monitor: EPS: PPM: CXR: Chest CT Scan:
[2023-05-21 14:08] LABS: Erythrocyte Sedimentation Rate 14 mm/hr (0-20)
[2023-05-21] MEDS: Atorvastatin Calcium 80 MG Tablet PO (22:45)
[2023-05-22] VITALS (13 sets, daily range): BP systolic 111–156; BP diastolic 57–93; PULSE 61–87; RESP 16–18; TEMP 36.4–36.6; O2SAT 92–96; BMI 33.0
[2023-05-22] MEDS: Piperacil/Tazobactam 3.375 GM in 0.9% Normal Saline (50mL MB+) 50 ML IV ×3 (05:32→21:25)
[2023-05-22 05:34] LABS: Hematocrit 38.8 % (40-54); Hemoglobin 12.1 g/dL (13.0-16.5); Mean Corp Hgb Conc 31.2 g/dL (32-36); Mean Corpuscular Hgb 27.1 pg (27.0-32.0); Mean Corpuscular Volume 86.8 fL (80-94); Mean Platelet Vol. 9.9 fl (6.2-12.0); Platelet Count 258 K/mm3 (150-450); RBC Distribution Width CV 16.2 % (11.6-14.6); RBC Distribution Width SD 51.7 fl (35.1-43.9); Red Blood Count 4.47 M/mm3 (4.6-6.2); White Blood Count 15.3 K/mm3 (4.4-11.0)
[2023-05-22 06:09] LABS: Anion Gap 4 (5-15); BUN 13 mg/dL (7-18); BUN/Creat Ratio 17.3 RATIO (10-20); Calcium,Total 8.4 mg/dL (8.5-10.1); Chloride 108 mmol/L (98-107); Creatinine, Serum 0.75 mg/dL (0.70-1.30); EST Glomerular Filtration Rate 107 mL/min (>60); Est Glom Filt Rate - Afr Amer 129 mL/min (>60); Estimated Creatinine Clearance 93.67 ml/min; Glucose 102 mg/dL (74-106); Potassium 4.1 mmol/L (3.5-5.1); Sodium Level 139 mmol/L (136-145)
--- NOTE | 2023-05-22 06:56 | ECHOTEE_ITS ---
Reason For Study: Valve Replacement Eval Medication EDGAR probe 6VT-D (SN [id number]) passed without difficulty. No complications were noted. Cetacaine Topical [place] given X3 orally. Versed 2 mg given slow IVP. Fentanyl 50 mcg given slow IVP. Performed a rapid injection of agitated mix of 9 cc saline and 1cc air to assess for atrial septal defect. Left Ventricle Normal LV size. Left ventricular systolic function is normal. The estimated ejection fraction is 60 %. No regional wall motion abnormalities noted. Right Ventricle Normal RV size. Normal systolic function. Atria Normal atrial septum. Bubble contrast study negative for right to left interatrial shunt. The left atrium is mildly enlarged. No thrombus is detected in the left atrial appendage. The right atrium is mildly enlarged. Mitral Valve Normal mitral valve. Mild (1+) eccentric mitral valve insufficiency. Tricuspid Valve Normal tricuspid valve. Mild tricuspid valve insufficiency. Aortic Valve Bileaflet mechanical aortic valve. Valve thickening noted but with no obvious vegetation. Pulmonic Valve Normal pulmonic valve. Vessels Normal aortic root. Normal arch. The pulmonary artery is normal size. Pericardium No pericardial effusion. ECHO/Echo Transesophageal (EDGAR) Interpretation Summary Normal LV size. Left ventricular systolic function is normal. The estimated ejection fraction is 60 %. The left atrium is mildly enlarged. No thrombus is detected in the left atrial appendage. Bileaflet mechanical aortic valve. Valve thickening noted but with no obvious vegetation. Ordering Physician: Moreno Bob Referring Physician: [facility] Performed By: Kandace Ayoub, DONALD, RVT
[2023-05-22 07:56] LABS: Vancomycin, Trough Level 24.4 ug/mL (5.0-15.0)
[2023-05-22] MEDS: 0.9% Saline Lock 10 ML Syringe IV ×4 (08:43→22:34)
[2023-05-22] MEDS: Tamsulosin HCl 0.4 MG Capsule 0.400000000000000022 MG PO (08:47)
[2023-05-22] MEDS: guaiFENesin 1,200 MG Tablet 1200 MG PO ×2 (08:47→21:24)
[2023-05-22] MEDS: Potassium Chloride Oral Tablet 20 MEQ 40 MEQ PO (08:47)
[2023-05-22] MEDS: Metoprolol Tartrate 25 MG Tablet PO (08:47)
[2023-05-22] MEDS: Gabapentin 300 MG Capsule PO (08:47)
[2023-05-22] MEDS: Allopurinol 100 MG Tablet PO (08:48)
[2023-05-22] MEDS: Magnesium Chloride 64 MG Delay Rel.Tablet 128 MG PO (08:48)
[2023-05-22] MEDS: Cholecalciferol (Vit D3) 125 MCG CAPSULE (5,000 UNITS) PO (08:48)
[2023-05-22] MEDS: Zinc Sulfate 50 mg zinc (220 mg) ORAL capsule PO (08:49)
[2023-05-22] MEDS: Isosorbide Mononitrate 30 MG Tablet PO (08:49)
[2023-05-22] MEDS: Ascorbic Acid 500 MG Tablet 1000 MG PO ×2 (08:49→16:35)
[2023-05-22] MEDS: Pantoprazole Sodium 40 MG Tablet PO ×2 (08:49→21:24)
[2023-05-22] MEDS: Finasteride 5 MG Tablet PO (08:50)
--- NOTE | 2023-05-22 09:25 | PCM.PN.HOSP ---
Reason for Visit Reason for Visit: Diagnoses Elevated white blood cell count, unspecified (05/19/23) Other nonrheumatic aortic valve disorders (05/19/23) Heart failure, unspecified (05/19/23) Pneumonia, unspecified organism (05/19/23) Other specified diseases of pancreas (05/19/23) Hypoxemia (05/19/23) Subjective Subjective Patient is a 77-year-old male who presented to [facility] ED on 05/18/2023 with worsening cough and shortness of breath Objective Data Objective Data Vital Signs: Vital Signs Temp Pulse Resp BP Pulse Ox O2 Del Method O2 Flow Rate 97.5 F L 78 18 148/83 H 95 Room Air 2 05/22/23 07:45 05/22/23 08:47 05/22/23 07:45 05/22/23 07:45 05/22/23 08:22 05/22/23 08:22 05/20/23 08:30 Oxygen Flow Rate (L/min) 2 Oxygen Delivery Method Room Air Weight: 104.6 kg Body Mass Index (BMI) 33.0 Intake & Output: Intake and Output for Last 24 Hours 05/20/23 05/21/23 05/22/23 23:59 23:59 23:59 Intake Total 1840 / 2080 2984.75 / 2984.75 50 / 50 Output Total 1550 / 1950 2450 / 2900 800 / 800 Balance 290 / 130 534.75 / 84.75 -750 / -750 Lab / Micro Data 05/22/23 05:10 05/22/23 05:10 Labs: Laboratory Results - last 24 hr 05/21/23 13:35: ESR 14 05/22/23 05:10: WBC 15.3 H, RBC 4.47 L, Hgb 12.1 L, Hct 38.8 L, MCV 86.8, MCH 27.1, MCHC 31.2 L, RDW Std Deviation 51.7 H, RDW Coeff of Clement 16.2 H, Plt Count 258, MPV 9.9, Sodium 139, Potassium 4.1, Chloride 108 H, Carbon Dioxide 27.0, Anion Gap 4 L, BUN 13, Creatinine 0.75, Estim Creat Clear Calc 93.67, Est GFR (MDRD) Af Amer 129, Est GFR (MDRD) Non-Af 107, BUN/Creatinine Ratio 17.3, Glucose 102, Calcium 8.4 L 05/22/23 07:00: Vancomycin Trough 24.4 H Micro: Microbiology 05/19/23 00:50 Blood Culture (Wb) - Anticubital Right Blood Culture - Preliminary No growth in 48 hours. 05/19/23 00:43 Blood Culture (Wb) - Anticubital Left Blood Culture - Preliminary No growth in 48 hours. 05/19/23 08:18 Urine, Clean Catch Streptococcus pneumoniae Antigen (M - Final 05/19/23 01:24 Mucosa - Nasopharyngeal Respiratory Panel (PCR) - Final 05/19/23 00:48 Urine, Random Legionella Antigen - Final 05/19/23 00:48 Urine, Random Streptococcus pneumoniae Antigen (M - Final 05/18/23 21:21 Mucosa - Nose SARS-CoV-2, Influenza & RSV (PCR) - Final Physical Exam Narrative GENERAL: cooperative HEENT: Atraumatic; normocephalic EYES; Anicteric, Normal Conjunctiva NECK; supple, normal thyroid, RESPIRATORY: Diminished to auscultation CARDIOVASCULAR: irregular S1 S2, GI: soft, normoactive bowel sounds, : No Renal angle tenderness; EXTREMITIES: No edema, no clubbing, MUSCULOSKELETAL: no muscle wasting NEURO: Awake; no lateralizing signs. SKIN: No Rash PSYCH; Flat affect Assessment & Plan Assessment/Plan (1) CHF exacerbation: QUALIFIERS: Heart failure type: unspecified Qualified Code(s): I50.9 - Heart failure, unspecified (2) Mass of head of pancreas: (3) Aortic valve mass: (4) Leukocytosis: (5) Hypoxia: PLAN: Plan Patient is a 77-year-old male who presented to [facility] ED on 05/18/2023 with worsening cough and shortness of breath. 1. Acute on chronic congestive heart failure ? Patient presented with significant hypoxia CT demonstrated bilateral pleural effusion patient has been managed with diuretics. TTE obtained on 05/20/2023 demonstrated EF of 55 to 60% was also found to have a moderate size Hyperechogenic structure noted in mechanical aortic valve 2. A moderate size Hyperechogenic structure noted in mechanical aortic valve -Patient is scheduled to undergo EDGAR to add a renal rule out endocarditis patient remains on broad-spectrum antibiotic therapy 3. Suspected pneumonia - Suspected to be secondary to streptococcal pneumonia, Blood and sputum cultures sent. Patient placed on Rocephin and Zithromax and placed on oxygen titrated to keep Pulse Ox greater than 90 4.. Incidentally noted enlargement of pancreatic head and uncinate process ? Incidentally noted mass on chest CT on admit. MRCP 05/19 showed no definitive pancreatic mass, no biliary dilation or choledocholithiasis; however the exam was not tailored to evaluate the pancreas. Gastroenterology consulted. 5. Valvular heart disease ? History of mechanical aortic valve patient is on Coumadin, did continue with daily monitoring of INR ordered 6. Chronic A-fib ? Rate controlled and on systemic anticoagulation with Coumadin 7. Coronary artery disease With previous history of PCI patient is on guideline directed medical therapy 8. Hypertension - Blood pressure controlled, home medications continued with dose adjustment as needed 9. Dyslipidemia -Patient is on statin therapy, continued at home dose 10. Hypothyroidism - Patient is on levothyroxine home dose continued 11. GERD ? Patient is on PPI 12. Class I obesity with BMI of 33.1 ? Weight loss advised 13. Peripheral neuropathy ? Patient is on gabapentin 14. Chronic gout ? Patient is on allopurinol 15. BPH with lower urinary obstructive symptoms - Patient treated with tamsulosin as well as finasteride 16. DVT prophylaxis ? Patient is on Coumadin Time spent in the patient's overall evaluation,decision-making process, review of diagnostic data, adjustment of management, discussion with other providers, nursing nursing and ancillary staff involved in patient's care documentation, 50 Minutes Charges/Coding Visit Charges Inpatient E&M: 9[address] [facility] L3
[2023-05-22 11:19] LABS: International Normalized Ratio 2.3; Prothrombin Time (Protime)PT. 25.2 SECONDS (11.7-14.9)
[2023-05-22] MEDS: Furosemide 40 MG/4 ML Vial IV (13:53)
[2023-05-22 14:18] LABS: Pathologist Review Reviewed
--- NOTE | 2023-05-22 15:55 | CASEMGMT ---
Discharge Planning Updates faxed to Mary @ [facility]. Kalina Bermudez, Discharge Planning Asst.
[2023-05-22] MEDS: Jantoven 2 MG Tablet PO (16:35)
[2023-05-22 20:15] LABS: Vancomycin, Random Level 14.9 ug/mL (0.0-15.0)
[2023-05-22] MEDS: Atorvastatin Calcium 80 MG Tablet PO (21:24)
[2023-05-22] MEDS: MELATONIN 3 MG TABLET PO (21:25)
--- NOTE | 2023-05-22 22:05 | PCM.RX.CS ---
Consult Antibiotic Management Pharmacy has been consulted to manage selected antibiotic: Vancomycin Type of Intervention Type of Consult: Follow-up Suspected Infection Suspected Infection: Pneumonia Labs Labs: Sodium 139 mmol/L (136-145) 05/22/23 05:10 Potassium 4.1 mmol/L (3.5-5.1) 05/22/23 05:10 Chloride 108 mmol/L (98-107) H 05/22/23 05:10 Carbon Dioxide 27.0 mmol/L (21.0-32.0) 05/22/23 05:10 Anion Gap 4 (5-15) L 05/22/23 05:10 BUN 13 mg/dL (7-18) 05/22/23 05:10 Creatinine 0.75 mg/dL (0.70-1.30) 05/22/23 05:10 Est GFR (MDRD) Af Amer 129 mL/min (>60) 05/22/23 05:10 Est GFR (MDRD) Non-Af 107 mL/min (>60) 05/22/23 05:10 BUN/Creatinine Ratio 17.3 RATIO (10-20) 05/22/23 05:10 Glucose 102 mg/dL (74-106) 05/22/23 05:10 Vancomycin Trough 24.4 ug/mL (5.0-15.0) H 05/22/23 07:00 Random Vancomycin 14.9 ug/mL (0.0-15.0) 05/22/23 19:40 Microbiology Microbiology: Microbiology 05/21/23 20:10 Sputum, Expectorated/Coughed Gram Stain - Final 05/19/23 00:50 Blood Culture (Wb) - Anticubital Right Blood Culture - Preliminary No growth in 48 hours. 05/19/23 00:43 Blood Culture (Wb) - Anticubital Left Blood Culture - Preliminary No growth in 48 hours. 05/19/23 08:18 Urine, Clean Catch Streptococcus pneumoniae Antigen (M - Final 05/19/23 01:24 Mucosa - Nasopharyngeal Respiratory Panel (PCR) - Final 05/19/23 00:48 Urine, Random Legionella Antigen - Final 05/19/23 00:48 Urine, Random Streptococcus pneumoniae Antigen (M - Final 05/18/23 21:21 Mucosa - Nose SARS-CoV-2, Influenza & RSV (PCR) - Final Dosing Weight Weight used for dosin.6 kg Estimated Creatinine Clearance Estimated Creatinine Clearance: 94 Goal Trough Goal Trough: 15-20 mcg/mL Pharmacy Plan for Drug Dosing Pharmacy Plan for Drug Dosing: Random vancomycin level was 14.9. This was taken 23.5hrs since the last dose given. Aminoglycoside dosing calculator estimates that re-starting at 1250mg q12h will give a trough level of 18.1. Will initiate this and draw a trough level prior to fourth dose of the new regimen. Pharmacy Service will continue to monitor and adjust dosing as required. Follow-Up Labs Follow-Up Labs: Trough: Vancomycin Date/Time Labs Ordered Labs to be done on [date and time ordered]: 05/24/23 @4552
[2023-05-22] MEDS: Vancomycin HCl 1,250 MG in 0.9% Normal Saline (250mL Bag) 250 ML 167 MG IV (22:34)
[2023-05-23] VITALS (7 sets, daily range): BP systolic 127–144; BP diastolic 50–110; PULSE 77–100; RESP 16–20; TEMP 36.4–36.5; O2SAT 91–96; BMI 33.4
[2023-05-23] MEDS: Piperacil/Tazobactam 3.375 GM in 0.9% Normal Saline (50mL MB+) 50 ML IV (05:33)
[2023-05-23] MEDS: Levothyroxine 50 MCG Tablet PO (05:35)
[2023-05-23 07:23] LABS: Hematocrit 41.1 % (40-54); Hemoglobin 13.2 g/dL (13.0-16.5); Mean Corp Hgb Conc 32.1 g/dL (32-36); Mean Corpuscular Hgb 27.6 pg (27.0-32.0); Mean Platelet Vol. 9.9 fl (6.2-12.0); POSITIVE COUNT YES; POSITIVE MORPHOLOGY YES; Platelet Count 316 K/mm3 (150-450); RBC Distribution Width CV 15.9 % (11.6-14.6); RBC Distribution Width SD 49.5 fl (35.1-43.9); Red Blood Count 4.78 M/mm3 (4.6-6.2); White Blood Count 18.2 K/mm3 (4.4-11.0)
[2023-05-23 07:24] LABS: Differential Indicated MANUAL DIFF
[2023-05-23 07:30] LABS: International Normalized Ratio 2.5; Prothrombin Time (Protime)PT. 27.1 SECONDS (11.7-14.9)
[2023-05-23 07:54] LABS: Anion Gap 4 (5-15); BUN 14 mg/dL (7-18); Calcium,Total 9.2 mg/dL (8.5-10.1); Chloride 106 mmol/L (98-107); Creatinine, Serum 0.82 mg/dL (0.70-1.30); EST Glomerular Filtration Rate 96 mL/min (>60); Est Glom Filt Rate - Afr Amer 117 mL/min (>60); Estimated Creatinine Clearance 91.81 ml/min; Glucose 99 mg/dL (74-106); Magnesium 2.5 mg/dL (1.6-2.6); Phosphorus 3.6 mg/dL (2.5-4.9); Potassium 4.4 mmol/L (3.5-5.1); Sodium Level 137 mmol/L (136-145)
[2023-05-23] MEDS: Gabapentin 300 MG Capsule PO (07:54)
[2023-05-23] MEDS: Pantoprazole Sodium 40 MG Tablet PO (07:55)
[2023-05-23] MEDS: 0.9% Saline Lock 10 ML Syringe IV (07:55)
--- NOTE | 2023-05-23 07:55 | PCM.PN.HOSP ---
Reason for Visit Reason for Visit: Diagnoses Elevated white blood cell count, unspecified (05/19/23) Other nonrheumatic aortic valve disorders (05/19/23) Heart failure, unspecified (05/19/23) Pneumonia, unspecified organism (05/19/23) Other specified diseases of pancreas (05/19/23) Hypoxemia (05/19/23) Subjective Subjective Patient seen clinical condition improving. Plan is for patient to be assessed for possible discharge home Objective Data Objective Data Vital Signs: Vital Signs Temp Pulse Resp BP Pulse Ox O2 Del Method O2 Flow Rate 97.7 F L 100 17 135/82 H 94 Room Air 2 05/23/23 07:45 05/23/23 07:45 05/23/23 07:45 05/23/23 07:45 05/23/23 07:45 05/23/23 07:45 05/20/23 08:30 Oxygen Flow Rate (L/min) 2 Oxygen Delivery Method Room Air Weight: 105.6 kg Body Mass Index (BMI) 33.4 Intake & Output: Intake and Output for Last 24 Hours 05/21/23 05/22/23 05/23/23 23:59 23:59 23:59 Intake Total 2984.75 / 2984.75 970 / 970 445 / 445 Output Total 2450 / 2900 2800 / 2800 150 / 150 Balance 534.75 / 84.75 -1830 / -1830 295 / 295 Lab / Micro Data 05/23/23 07:10 05/23/23 07:10 Labs: Laboratory Results - last 24 hr 05/19/23 06:40: Diff Path Review Reviewed 05/22/23 05:10: PT 25.2 H, INR 2.3 05/22/23 07:00: Vancomycin Trough 24.4 H 05/22/23 19:40: Random Vancomycin 14.9 05/23/23 07:10: WBC 18.2 H, RBC 4.78, Hgb 13.2, Hct 41.1, MCV 86.0, MCH 27.6, MCHC 32.1, RDW Std Deviation 49.5 H, RDW Coeff of Clement 15.9 H, Plt Count 316, MPV 9.9, Neut % (Auto) Not Reportable, PT 27.1 H, INR 2.5, Sodium 137, Potassium 4.4, Chloride 106, Carbon Dioxide 27.0, Anion Gap 4 L, BUN 14, Creatinine 0.82, Estim Creat Clear Calc 91.81, Est GFR (MDRD) Af Amer 117, Est GFR (MDRD) Non-Af 96, BUN/Creatinine Ratio 17.0, Glucose 99, Calcium 9.2, Phosphorus 3.6, Magnesium 2.5 Micro: Microbiology 05/21/23 20:10 Sputum, Expectorated/Coughed Gram Stain - Final 05/19/23 00:50 Blood Culture (Wb) - Anticubital Right Blood Culture - Preliminary No growth in 48 hours. 05/19/23 00:43 Blood Culture (Wb) - Anticubital Left Blood Culture - Preliminary No growth in 48 hours. 05/19/23 08:18 Urine, Clean Catch Streptococcus pneumoniae Antigen (M - Final 05/19/23 01:24 Mucosa - Nasopharyngeal Respiratory Panel (PCR) - Final 05/19/23 00:48 Urine, Random Legionella Antigen - Final 05/19/23 00:48 Urine, Random Streptococcus pneumoniae Antigen (M - Final 05/18/23 21:21 Mucosa - Nose SARS-CoV-2, Influenza & RSV (PCR) - Final Radiography Diagnostic Testing: Radiology Impression Transesophageal Echocardiogram 05/22/23 06:56 Interpretation Summary Normal LV size. Left ventricular systolic function is normal. The estimated ejection fraction is 60 %. The left atrium is mildly enlarged. No thrombus is detected in the left atrial appendage. Bileaflet mechanical aortic valve. Valve thickening noted but with no obvious vegetation. Ordering Physician: Moreno Bob Referring Physician: [facility] Performed By: Kandace Ayoub, DONALD, RVT Physical Exam Narrative GENERAL: cooperative HEENT: Atraumatic; normocephalic EYES; Anicteric, Normal Conjunctiva NECK; supple, normal thyroid, RESPIRATORY: Diminished to auscultation CARDIOVASCULAR: irregular S1 S2, GI: soft, normoactive bowel sounds, : No Renal angle tenderness; EXTREMITIES: No edema, no clubbing, MUSCULOSKELETAL: no muscle wasting NEURO: Awake; no lateralizing signs. SKIN: No Rash PSYCH; Flat affect Assessment & Plan Assessment/Plan (1) CHF exacerbation: QUALIFIERS: Heart failure type: unspecified Qualified Code(s): I50.9 - Heart failure, unspecified (2) Mass of head of pancreas: (3) Aortic valve mass: (4) Leukocytosis: (5) Hypoxia: PLAN: Plan Patient is a 77-year-old male who presented to [facility] ED on 05/18/2023 with worsening cough and shortness of breath. 1. Acute on chronic congestive heart failure ? Patient presented with significant hypoxia CT demonstrated bilateral pleural effusion patient has been managed with diuretics. TTE obtained on 05/20/2023 demonstrated EF of 55 to 60% was also found to have a moderate size Hyperechogenic structure noted in mechanical aortic valve -? 05/23/2023; EDGAR performed the day prior did not reveal any vegetation. 2. A moderate size Hyperechogenic structure noted in mechanical aortic valve -Patient is scheduled to undergo EDGAR to add a renal rule out endocarditis patient remains on broad-spectrum antibiotic therapy ? 05/23/2023; EDGAR performed the day prior did not reveal any vegetation. 3. Suspected pneumonia - Suspected to be secondary to streptococcal pneumonia, Blood and sputum cultures sent. Patient placed on Rocephin and Zithromax and placed on oxygen titrated to keep Pulse Ox greater than 90 4.. Incidentally noted enlargement of pancreatic head and uncinate process ? Incidentally noted mass on chest CT on admit. MRCP 05/19 showed no definitive pancreatic mass, no biliary dilation or choledocholithiasis; however the exam was not tailored to evaluate the pancreas. Gastroenterology consulted. 5. Valvular heart disease ? History of mechanical aortic valve patient is on Coumadin, did continue with daily monitoring of INR ordered 6. Chronic A-fib ? Rate controlled and on systemic anticoagulation with Coumadin 7. Coronary artery disease With previous history of PCI patient is on guideline directed medical therapy 8. Hypertension - Blood pressure controlled, home medications continued with dose adjustment as needed 9. Dyslipidemia -Patient is on statin therapy, continued at home dose 10. Hypothyroidism - Patient is on levothyroxine home dose continued 11. GERD ? Patient is on PPI 12. Class I obesity with BMI of 33.1 ? Weight loss advised 13. Peripheral neuropathy ? Patient is on gabapentin 14. Chronic gout ? Patient is on allopurinol 15. BPH with lower urinary obstructive symptoms - Patient treated with tamsulosin as well as finasteride 16. DVT prophylaxis ? Patient is on Coumadin Time spent in the patient's overall evaluation,decision-making process, review of diagnostic data, adjustment of management, discussion with other providers, nursing nursing and ancillary staff involved in patient's care documentation, 35 Minutes Charges/Coding Visit Charges Inpatient E&M: 60194 Subs Hosp L2
[2023-05-23] MEDS: Magnesium Chloride 64 MG Delay Rel.Tablet 128 MG PO (07:56)
[2023-05-23] MEDS: Isosorbide Mononitrate 30 MG Tablet PO (07:56)
[2023-05-23] MEDS: Zinc Sulfate 50 mg zinc (220 mg) ORAL capsule PO (07:56)
[2023-05-23] MEDS: Finasteride 5 MG Tablet PO (07:56)
[2023-05-23] MEDS: Cholecalciferol (Vit D3) 125 MCG CAPSULE (5,000 UNITS) PO (07:57)
[2023-05-23] MEDS: Ascorbic Acid 500 MG Tablet 1000 MG PO (07:57)
[2023-05-23] MEDS: Potassium Chloride Oral Tablet 20 MEQ 40 MEQ PO (07:57)
[2023-05-23] MEDS: Allopurinol 100 MG Tablet PO (07:57)
[2023-05-23] MEDS: guaiFENesin 1,200 MG Tablet 1200 MG PO (07:57)
[2023-05-23] MEDS: Tamsulosin HCl 0.4 MG Capsule 0.400000000000000022 MG PO (07:58)
[2023-05-23] MEDS: Furosemide 40 MG/4 ML Vial IV (07:58)
[2023-05-23] MEDS: Metoprolol Tartrate 25 MG Tablet PO (07:58)
[2023-05-23 07:59] LABS: Basophil 1 % (0-1); Eosinophil 4 % (0-5); Lymphocyte 7 % (19-41); Monocyte 4 % (0-10); Myelocyte 1 % (0-0); Neutrophil-Segmented 78 % (47-70); Other WBC Type 3 %; Promyelocyte 2 % (0-0); Total Cells Counted 100 (MANUAL DIFF)
[2023-05-23] MEDS: Aspirin 81 MG TAB.CHEW PO (07:59)
[2023-05-23 08:00] LABS: Ovalocyte 1+; Tear Drop Cell 1+
[2023-05-23] MEDS: Albuterol 2.5 MG/3 ML VIAL.NEB. INHALATION (08:03)
[2023-05-23] MEDS: Vancomycin HCl 1,250 MG in 0.9% Normal Saline (250mL Bag) 250 ML 167 MG IV (09:42)
[2023-05-23] MEDS: Ferrous Sulfate 325 MG Tablet PO (11:38)
--- NOTE | 2023-05-23 11:51 | PCM.DC.SUM ---
Providers Date of Admission: 05/19/23 Date of Discharge: 05/23/23 Primary Care Physician: [facility] Consultations 05/19/23 00:24 Consult: Gastroenterology Routine Consulting Provider: [facility] Reason for Consult: Pancreatic head mass on CT EMERGENT Consult: No Notified: Yes Date Notified: 05/19/23 Time Notified: 06:51 Method of Notification: Text 05/20/23 15:12 Consult: Cardiology Routine Consulting Provider: Chester Montano Reason for Consult: Mass on mechanical AV on TTE, EDGAR recommended EMERGENT Consult: No Notified: Yes Date Notified: 05/20/23 Time Notified: 15:41 Method of Notification: Text Reason For Visit: PNEUMONIA, AE CHF AND PANCREATIC HEAD MASS Diagnosis Discharge Diagnosis (1) CHF exacerbation: Status: Chronic Code(s): I50.9 - Heart failure, unspecified Qualifiers: Heart failure type: unspecified Qualified Code(s): I50.9 - Heart failure, unspecified (2) Mass of head of pancreas: Status: Acute Code(s): K86.89 - Other specified diseases of pancreas (3) Aortic valve mass: Status: Acute Code(s): I35.8 - Other nonrheumatic aortic valve disorders (4) Leukocytosis: Status: Acute Code(s): D72.829 - Elevated white blood cell count, unspecified (5) Hypoxia: Status: Acute Code(s): R09.02 - Hypoxemia Plan Patient is a 77-year-old male who presented to [facility] ED on 05/18/2023 with worsening cough and shortness of breath. 1. Acute on chronic congestive heart failure ? Patient presented with significant hypoxia CT demonstrated bilateral pleural effusion patient has been managed with diuretics. TTE obtained on 05/20/2023 demonstrated EF of 55 to 60% was also found to have a moderate size Hyperechogenic structure noted in mechanical aortic valve -? 05/23/2023; EDGAR performed the day prior did not reveal any vegetation. 2. A moderate size Hyperechogenic structure noted in mechanical aortic valve -Patient is scheduled to undergo EDGAR to add a renal rule out endocarditis patient remains on broad-spectrum antibiotic therapy ? 05/23/2023; EDGAR performed the day prior did not reveal any vegetation. 3. Suspected pneumonia - Suspected to be secondary to streptococcal pneumonia, Blood and sputum cultures sent. Patient placed on Rocephin and Zithromax and placed on oxygen titrated to keep Pulse Ox greater than 90 4.. Incidentally noted enlargement of pancreatic head and uncinate process ? Incidentally noted mass on chest CT on admit. MRCP 05/19 showed no definitive pancreatic mass, no biliary dilation or choledocholithiasis; however the exam was not tailored to evaluate the pancreas. Gastroenterology consulted. 5. Valvular heart disease ? History of mechanical aortic valve patient is on Coumadin, did continue with daily monitoring of INR ordered 6. Chronic A-fib ? Rate controlled and on systemic anticoagulation with Coumadin 7. Coronary artery disease With previous history of PCI patient is on guideline directed medical therapy 8. Hypertension - Blood pressure controlled, home medications continued with dose adjustment as needed 9. Dyslipidemia -Patient is on statin therapy, continued at home dose 10. Hypothyroidism - Patient is on levothyroxine home dose continued 11. GERD ? Patient is on PPI 12. Class I obesity with BMI of 33.1 ? Weight loss advised 13. Peripheral neuropathy ? Patient is on gabapentin 14. Chronic gout ? Patient is on allopurinol 15. BPH with lower urinary obstructive symptoms - Patient treated with tamsulosin as well as finasteride 16. DVT prophylaxis ? Patient is on Coumadin Time spent in the patient's overall evaluation,decision-making process, review of diagnostic data, adjustment of management, discussion with other providers, nursing nursing and ancillary staff involved in patient's care documentation, 35 Minutes Medications at Discharge Home Medications warfarin 4 mg tablet (Jantoven) 4 mg PO SUTUWETHFRSA A.FIB 04/03/16 allopurinol 100 mg tablet 100 mg PO DAILYCM 04/04/16 atorvastatin 40 mg tablet 80 mg PO DAILY 04/04/16 ferrous sulfate 325 mg (65 mg iron) tablet 325 mg PO DAILY 04/04/16 isosorbide mononitrate 30 mg tablet,extended release 24 hr 30 mg PO DAILY 04/04/16 levothyroxine 25 mcg tablet 50 mcg PO DAILY 04/04/16 metoprolol tartrate 25 mg tablet 25 mg PO DAILY 04/04/16 pantoprazole 40 mg tablet,delayed release 40 mg PO BID 04/04/16 gabapentin 300 mg capsule 300 mg PO DAILY 01/10/20 tamsulosin 0.4 mg capsule 0.4 mg PO DAILY 07/09/22 aspirin 81 mg capsule 81 mg PO DAILY blood thinner 01/10/23 finasteride 5 mg tablet 5 mg PO DAILY 05/18/23 warfarin 2 mg tablet (Jantoven) 2 mg PO DAILY A.FIB 05/19/23 cefdinir 300 mg capsule 300 mg PO BID #10 caps 05/23/23 furosemide 40 mg tablet (Lasix) 40 mg PO DAILY #30 tabs 05/23/23 Hospital Course Summary of Care Provided Minutes Spent on Discharge: 35 Weight / BMI Weight Weight: 105.6 kg Body Mass Index (BMI) 33.4 ABG / Lab / Microbiology Data 05/23/23 07:10 05/23/23 07:10 Laboratory: Laboratory Results - last 24 hr 05/19/23 06:40: Diff Path Review Reviewed 05/22/23 19:40: Random Vancomycin 14.9 05/23/23 07:10: WBC 18.2 H, RBC 4.78, Hgb 13.2, Hct 41.1, MCV 86.0, MCH 27.6, MCHC 32.1, RDW Std Deviation 49.5 H, RDW Coeff of Clement 15.9 H, Plt Count 316, MPV 9.9, Neut % (Auto) Not Reportable, Total Counted 100, Neutrophils % (Manual) 78 H, Lymphocytes % (Manual) 7 L, Monocytes % (Manual) 4, Eosinophils % (Manual) 4, Basophils % (Manual) 1, Myelocytes % 1 H, Promyelocytes % 2 H, Other Cells % 3, Diff Path Review May foll, Tear Drop Cells 1+, Ovalocytes 1+, PT 27.1 H, INR 2.5, Sodium 137, Potassium 4.4, Chloride 106, Carbon Dioxide 27.0, Anion Gap 4 L, BUN 14, Creatinine 0.82, Estim Creat Clear Calc 91.81, Est GFR (MDRD) Af Amer 117, Est GFR (MDRD) Non-Af 96, BUN/Creatinine Ratio 17.0, Glucose 99, Calcium 9.2, Phosphorus 3.6, Magnesium 2.5 Microbiology: Microbiology 05/21/23 13:45 Blood Culture (Wb) - Right Hand Blood Culture - Preliminary No growth in 48 hours. 05/21/23 13:35 Blood Culture (Wb) - Left Hand Blood Culture - Preliminary No growth in 48 hours. 05/21/23 20:10 Sputum, Expectorated/Coughed Gram Stain - Final 05/21/23 20:10 Sputum, Expectorated/Coughed Respiratory Culture - Preliminary Appears to be normal respiratory allie. Further studies to follow. 05/19/23 00:50 Blood Culture (Wb) - Anticubital Right Blood Culture - Preliminary No growth in 48 hours. 05/19/23 00:43 Blood Culture (Wb) - Anticubital Left Blood Culture - Preliminary No growth in 48 hours. 05/19/23 08:18 Urine, Clean Catch Streptococcus pneumoniae Antigen (M - Final 05/19/23 01:24 Mucosa - Nasopharyngeal Respiratory Panel (PCR) - Final 05/19/23 00:48 Urine, Random Legionella Antigen - Final 05/19/23 00:48 Urine, Random Streptococcus pneumoniae Antigen (M - Final 05/18/23 21:21 Mucosa - Nose SARS-CoV-2, Influenza & RSV (PCR) - Final Radiography Diagnostic Testing: Radiology Impression Transesophageal Echocardiogram 05/22/23 06:56 Interpretation Summary Normal LV size. Left ventricular systolic function is normal. The estimated ejection fraction is 60 %. The left atrium is mildly enlarged. No thrombus is detected in the left atrial appendage. Bileaflet mechanical aortic valve. Valve thickening noted but with no obvious vegetation. Ordering Physician: Moreno Bob Referring Physician: [facility] Performed By: Kandace Ayoub, DONALD, RVT Meaningful Use Info Meaningful Use Diagnoses (Choose all that apply): CHF CHF TRA/ARB ordered at discharge?: Yes Reason TRA/ARB not ordered?: Normal EF Documented LVEF (%): 60 Discharge Plan Admission Admit Date/Time: 05/19/23 00:14 Attending Provider: Desmond Castaneda Primary Care Provider: [facility] Consulting Providers: Desmond Owen; Constantino Albarado; Chester Montano; Jaya Patel Discharge Orders/Prescriptions Prescriptions: New cefdinir 300 mg capsule 300 mg PO BID Qty: 10 0RF furosemide [Lasix] 40 mg tablet 40 mg PO DAILY Qty: 30 0RF Continued warfarin [Jantoven] 4 MG tablet 4 mg PO SUTUWETHFRSA atorvastatin 40 MG tablet 80 mg PO DAILY isosorbide mononitrate 30 MG tablet 30 mg PO DAILY Patient Comments: Heart allopurinol 100 MG tablet 100 mg PO DAILYCM levothyroxine 25 MCG tablet 50 mcg PO DAILY pantoprazole 40 MG tablet 40 mg PO BID Patient Comments: stomach ferrous sulfate 325 MG tablet 325 mg PO DAILY metoprolol tartrate 25 MG tablet 25 mg PO DAILY gabapentin 300 MG capsule 300 mg PO DAILY tamsulosin 0.4 mg capsule 0.4 mg PO DAILY Patient Comments: Take 1 capsule by mouth once a day aspirin 81 mg capsule 81 mg PO DAILY finasteride 5 mg tablet 5 mg PO DAILY warfarin [Maytoven] 2 mg tablet 2 mg PO DAILY Patient Comments: AT BEDTIME ON MONDAYS ONLY Referrals / Follow [facility] [Primary Care Provider] - Within 2 Weeks Disposition Disposition (needs filled in before D/C Order can be placed): Home, Self Care Charges/Coding Visit Charges Inpatient E&M: 01272 Disch Hosp >30min
[2023-05-23 14:03] LABS: Absolute Lymphocyte Count 1.27 X10^3/uL (0.83-4.51); Absolute Neutrophil Count 14.2 X10^3/uL (2.0-7.7)
[2023-05-24 14:30] LABS: Pathologist Review Reviewed
[2023-05-26 16:10] LABS: Carbohydrate Ag 19-9 2261 60 U/mL (0-35)
== END 2023-05-23 15:56 | disposition home or self-care (01) | DRG 291 ==
LOC: ED 23:35 → PCU 05-19 00:27
PROVIDERS: Hospitalist; Internal Medicine Interventional Cardiology; Admitting Provider Internal Medicine; Emergency Provider Student in an Organized Health Care Education/Training Program; Visit Provider Internal Medicine
DX: I50.33 Acute on chronic diastolic (congestive) heart failure (principal); J15.4 Pneumonia due to other streptococci; I48.20 Chronic atrial fibrillation, unspecified; N13.8 Other obstructive and reflux uropathy; Z95.2 Presence of prosthetic heart valve; Z79.01 Long term (current) use of anticoagulants; E03.9 Hypothyroidism, unspecified; I35.9 Nonrheumatic aortic valve disorder, unspecified; G43.909 Migraine, unspecified, not intractable, without status migrainosus; K58.9 Irritable bowel syndrome, unspecified; I25.10 Atherosclerotic heart disease of native coronary artery without angina pectoris; M10.9 Gout, unspecified; G62.9 Polyneuropathy, unspecified; K44.9 Diaphragmatic hernia without obstruction or gangrene; K21.9 Gastro-esophageal reflux disease without esophagitis; M19.90 Unspecified osteoarthritis, unspecified site; M1A.9XX0 Chronic gout, unspecified, without tophus (tophi); D72.829 Elevated white blood cell count, unspecified; E78.5 Hyperlipidemia, unspecified; E66.9 Obesity, unspecified; K86.89 Other specified diseases of pancreas; Z79.82 Long term (current) use of aspirin; Z95.5 Presence of coronary angioplasty implant and graft; R09.02 Hypoxemia; Z87.891 Personal history of nicotine dependence; N40.1 Benign prostatic hyperplasia with lower urinary tract symptoms; Z68.33 Body mass index [BMI] 33.0-33.9, adult
CPT/HCPCS: 36415; 70030; 71045; 71046; 71260; 74181; 80048; 80053; 80076; 80202; 81001; 83690; 83735; 83880; 84100; 84443; 84484; 85025; 85027; 85610; 85652; 86301; 87040; 87070; 87205; 87449; 87631; 87633; 87641; 93005; 93306; 93312; 93320; 93325; 94640; 94668; 97162; 97165; 97802; 99285; J7040; J7050; Q9957; Q9967; 90662; A4216; C8929; J1940

== ENCOUNTER 2023-11-02 13:31 | Emergency (ER) | payer OTHER, SELFPAY ==
[2023-11-02 13:33] VITALS: BP 148/54; PULSE 87; RESP 18; TEMP 36.2; O2SAT 96; BMI 37.4
[2023-11-02 14:15] LABS: Absolute Lymphocyte Count 1.04 X10^3/uL (0.83-4.51); Basophil# 0.05 X10^3/uL; Basophil% 0.4 % (0-1); Eosinophil# 0.11 X10^3/uL; Eosinophils% 0.9 % (0-5); Hematocrit 35.6 % (40-54); Hemoglobin 11.3 g/dL (13.0-16.5); Lymphocyte # 1.04 X10^3/ul (0.83-4.51); Lymphocyte % 8.8 % (19-41); Mean Corp Hgb Conc 31.7 g/dL (32-36); Mean Corpuscular Hgb 28.6 pg (27.0-32.0); Mean Corpuscular Volume 90.1 fL (80-94); Mean Platelet Vol. 9.9 fl (6.2-12.0); Monocyte# 0.53 X10^3/uL; Monocyte% 4.5 % (0-10); NRBC Flagged by Analyzer 0 % (0-5); Neutrophil # 9.99 X10^3/uL (2.7-7.7); Neutrophil % 85.1 % (47-70); Platelet Count 161 K/mm3 (150-450); RBC Distribution Width CV 15.8 % (11.6-14.6); RBC Distribution Width SD 51.8 fl (35.1-43.9); Red Blood Count 3.95 M/mm3 (4.6-6.2); White Blood Count 11.8 K/mm3 (4.4-11.0)
--- NOTE | 2023-11-02 14:25 | CT_ITS ---
EXAM: CT ABDOMEN AND PELVIS WITH INTRAVENOUS CONTRAST CLINICAL INDICATION: diarrhea TECHNIQUE: Helically acquired images were obtained of the abdomen and pelvis with intravenous contrast. This CT exam was performed using one or more of the following dose reduction techniques: automated exposure control, adjustment of the mA and/or kV according to patient size, and/or use of iterative reconstruction technique. CONTRAST: IV 100mL [id number] COMPARISON: MRI abdomen 05/19/2023 FINDINGS: LOWER THORAX: Small bilateral pleural effusions with minor bibasilar atelectasis. Mild cardiomegaly. ABDOMEN: LIVER: Normal. Homogeneous. No focal mass. GALLBLADDER AND BILE DUCTS: Cholecystectomy noted. No intra- or extrahepatic biliary ductal dilation. PANCREAS: Normal. No focal cystic or solid mass. SPLEEN: Stable 14 mm splenic cyst. ADRENALS: Stable 16 mm right adrenal nodule. KIDNEYS AND URETERS: Normal. Normal renal size and position. No hydronephrosis. STOMACH AND BOWEL: 6.3 cm duodenal diverticulum arises from the fourth portion of the duodenum. Diverticulosis of the colon noted without evidence of acute diverticulitis. PELVIS: APPENDIX: Appendix is visualized and normal in appearance. BLADDER: Normal. REPRODUCTIVE: Unremarkable as visualized. No mass. ABDOMEN and PELVIS: INTRAPERITONEAL SPACE: Normal. No ascites or other fluid collection. No free air. BONES/JOINTS: Surgical fixation of both femoral necks noted. Bony structures are diffusely osteoporotic. Sclerotic area within the left femoral head consistent with changes of chronic AVN. There is prominent compression deformity of the L4 vertebral body which is chronic in nature. Vertebroplasty changes are noted at L4. SOFT TISSUES: Small fat-containing bilateral inguinal hernias. Small sliding hilum hernia. VASCULATURE: Normal. Abdominal aorta is non-dilated. LYMPH NODES: Normal. No enlarged lymph nodes. CT/Abdomen/Pelvis W IV Cont ONLY IMPRESSION: 1. No acute abdominal or pelvic abnormality. 2. Diverticulosis coli. 3. Stable 16mm right adrenal nodule. 4. Mild cardiomegaly. 5. Small bilateral pleural effusions and mild bibasilar atelectasis. 6. Additional findings detailed above. Electronically Signed: Homar Ramirez MD at 15:42 EDT ,
--- NOTE | 2023-11-02 14:25 | ED.VIS.GI ---
HPI <ZACHERY Ricketts - Last Filed: 11/02/23 16:53> HPI - GI History of Present Illness Chief Complaint: Diarrhea Narrative Narrative: Patient presenting today due to diarrhea that he has had for over 2 months. He reports that he has multiple loose stools daily. He reports that he cannot take the diarrhea anymore prompting him to come in. His PCP has obtained a stool study which he thinks came back negative but is not sure what they tested for. He has not seen GI for this. He last had a colonoscopy 1 year ago and was told it was normal. He denies any fever, chills, abdominal pain, nausea, vomiting, melena, and hematochezia. He reports a PMH of leukemia, CVA, hypertension, valve replacement, and CAD. PFSH <ZACHERY Ricketts - Last Filed: 11/02/23 16:53> [facility], [facility] Medical History Wears hearing aid Thyroid disease High cholesterol Excessive bleeding Back pain Migraine headache Stroke/cerebrovascular accident History of IBS Gastric reflux Former smoker Sleep apnea Shortness of breath on exertion Leg cramps History of pain when walking History of edema History of echocardiogram History of stress test Cardiology follow-up encounter FH: bilateral hip replacements Home Medications ?Medication ?Instructions ?Recorded ?Last Taken ?Type warfarin 4 mg tablet (Jantoven) 4 mg PO SUTUWETHFRSA blood thinner 04/03/16 01/08/23 History allopurinol 100 mg tablet 100 mg PO DAILYCM gout 04/04/16 05/18/23 History atorvastatin 40 mg tablet 80 mg PO DAILY cholesterol 04/04/16 05/18/23 History ferrous sulfate 325 mg (65 mg 325 mg PO DAILY supplement 04/04/16 05/18/23 History iron) tablet isosorbide mononitrate 30 mg 30 mg PO DAILY chest pain 04/04/16 05/18/23 History tablet,extended release 24 hr levothyroxine 25 mcg tablet 50 mcg PO DAILY thyroid 04/04/16 05/18/23 History metoprolol tartrate 25 mg tablet 25 mg PO DAILY blood pressure 04/04/16 05/18/23 History pantoprazole 40 mg tablet,delayed 40 mg PO BID reflux 04/04/16 05/18/23 History release gabapentin 300 mg capsule 300 mg PO DAILY nerve pain 01/10/20 05/18/23 History tamsulosin 0.4 mg capsule 0.4 mg PO DAILY prostate 07/09/22 05/18/23 History aspirin 81 mg capsule 81 mg PO DAILY heart health 01/10/23 05/18/23 History finasteride 5 mg tablet 5 mg PO DAILY prostate 05/18/23 05/18/23 History warfarin 2 mg tablet (Jantoven) 2 mg PO DAILY blood thinner 05/19/23 Unknown History cefdinir 300 mg capsule 300 mg PO BID #10 caps 05/23/23 Unknown Rx furosemide 40 mg tablet (Lasix) 40 mg PO DAILY #30 tabs 05/23/23 Unknown Rx Allergy/AdvReac Type Severity Reaction Status Date / Time hydrocodone bitartrate (From Allergy Other Verified 11/02/23 13:33 Vicodin) Surgical History History of heart surgery History of cardiac catheterization History of coronary artery stent placement Hx laparoscopic cholecystectomy Hx of aortic valve replacement History of open heart surgery Social History household members: spouse Smoking Status: Former smoker ROS <ZACHERY Ricketts - Last Filed: 11/02/23 16:53> ROS ED Constitutional Constitutional ED: Denies chills or fever(s) Cardiovascular Cardiovascular: Denies chest pain Respiratory/Chest Respiratory/Chest: Denies cough or dyspnea Gastrointestinal Gastrointestinal: Reports diarrhea; Denies abdominal pain, constipation, melena, nausea or vomiting Genitourinary Genitourinary ED: Denies dysuria, hematuria or urinary urgency Musculoskeletal Musculoskeletal: Denies arthralgias or myalgias Integumentary Denies rash Neurologic Neurologic: Denies weakness EXAM <ZACHERY Ricketts - Last Filed: 11/02/23 16:53> Physical Exam Const Vital Signs: 11/02/23 13:33 11/02/23 15:32 Temperature 97.1 F L Temperature Source Temporal Pulse Rate 87 74 Respiratory Rate 18 18 Blood Pressure 148/54 H 144/62 H Blood Pressure Mean 85 89 Pulse Ox 96 96 Oxygen Delivery Method Room Air Room Air Positive well nourished, well developed and no apparent distress General Appearance ED: well developed HEENT Reports normocephalic and head/scalp atraumatic Mouth ED: Yes moist mucous membranes normal Eyes PERRL and EOMs intact bilaterally Neck full ROM and supple Chest Wall inspection of chest normal Resp normal respiratory effort and clear to auscultation bilaterally Cardio regular rate and regular rhythm GI soft to palpation, non-tender, non-distended and no masses Back/Spine normal ROM and normal to inspection Extremity normal to inspection and full ROM Neuro oriented x3, CN's II-XII intact bilaterally, moves all extremities, no focal motor deficits and no sensory deficits noted Sensorium / Orientation: awake and alert Psych mental status grossly normal and thought process normal Skin no rashes or lesions noted and no wounds <Jayesh Mccarthy MD - Last Filed: 11/06/23 07:04> Physical Exam Const Vital Signs: 11/02/23 13:33 11/02/23 15:32 Temperature 97.1 F L Temperature Source Temporal Pulse Rate 87 74 Respiratory Rate 18 18 Blood Pressure 148/54 H 144/62 H Blood Pressure Mean 85 89 Pulse Ox 96 96 Oxygen Delivery Method Room Air Room Air MDM <ZACHERY Ricketts - Last Filed: 11/02/23 16:53> [facility] Narrative Medical decision making narrative: Patient presenting today due to diarrhea that he has had over the past 2 months. He has seen his PCP for this, they have obtained a stool study but he is unsure what they tested for. No recent antibiotics. He reports that he felt dehydrated today and was told to come into the emergency department if he ever felt this way. Labs obtained to assess for leukocytosis, anemia, electrolyte abnormality, OMERO. Patient given IV fluids here. CBC shows a WBC of 11.8. CT scan of the abdomen pelvis obtained to rule out diverticulitis, colitis, and other abnormality. This shows no acute findings. He has stable cardiomegaly with small bilateral pleural effusions. He is on a diuretic. At this point I think patient would benefit from seeing GI, I will give him a referral. I have encouraged that he follow-up with his PCP. He will be discharged home in stable condition and is comfortable with plan. Lab Data Attestation: I reviewed the patient's lab results. Lab results narrative: WBC 11.8, H&H 11.3 and 35.6, Labs: Laboratory Results - last 24 hr 11/02/23 11/02/23 11:41 13:58 WBC 11.8 H RBC 3.95 L Hgb 11.3 L Hct 35.6 L MCV 90.1 MCH 28.6 MCHC 31.7 L RDW Std Deviation 51.8 H RDW Coeff of Clement 15.8 H Plt Count 161 MPV 9.9 Immature Gran % (Auto) 0.300 Neut % (Auto) 85.1 H Lymph % (Auto) 8.8 L [place] % (Auto) 4.5 Eos % (Auto) 0.9 Baso % (Auto) 0.4 Absolute Neuts (auto) 10.0 H Absolute Lymphs (auto) 1.04 Nucleated RBC % 0 Sodium 139 Potassium 3.7 Chloride 104 Carbon Dioxide 28.0 Anion Gap 7 BUN 13 Creatinine 0.76 Estim Creat Clear Calc 92.22 Est GFR (MDRD) Af Amer 129 Est GFR (MDRD) Non-Af 106 BUN/Creatinine Ratio 17.2 Glucose 108 H Calcium 8.3 L Radiography Diagnostic Testing: Clinical Impression(s) from Imaging Studies Abdomen/Pelvis CT 11/02/23 14:25 IMPRESSION: 1. No acute abdominal or pelvic abnormality. 2. Diverticulosis coli. 3. Stable 16mm right adrenal nodule. 4. Mild cardiomegaly. 5. Small bilateral pleural effusions and mild bibasilar atelectasis. 6. Additional findings detailed above. Electronically Signed: Homar Ramirez MD at 15:42 EDT Reading Location ID and State: [address] [place] [address] Tel , Service support , <Jayesh Mccarthy MD - Last Filed: 11/06/23 07:04> [facility] History & Record Review Discussion w/independent historian: Patient Lab Data Labs: Laboratory Results - last 24 hr 11/02/23 11/02/23 11:41 13:58 WBC 11.8 H RBC 3.95 L Hgb 11.3 L Hct 35.6 L MCV 90.1 MCH 28.6 MCHC 31.7 L RDW Std Deviation 51.8 H RDW Coeff of Clement 15.8 H Plt Count 161 MPV 9.9 Immature Gran % (Auto) 0.300 Neut % (Auto) 85.1 H Lymph % (Auto) 8.8 L [place] % (Auto) 4.5 Eos % (Auto) 0.9 Baso % (Auto) 0.4 Absolute Neuts (auto) 10.0 H Absolute Lymphs (auto) 1.04 Nucleated RBC % 0 Sodium 139 Potassium 3.7 Chloride 104 Carbon Dioxide 28.0 Anion Gap 7 BUN 13 Creatinine 0.76 Estim Creat Clear Calc 92.22 Est GFR (MDRD) Af Amer 129 Est GFR (MDRD) Non-Af 106 BUN/Creatinine Ratio 17.2 Glucose 108 H Calcium 8.3 L Radiography Diagnostic Testing: Clinical Impression(s) from Imaging Studies Abdomen/Pelvis CT 11/02/23 14:25 IMPRESSION: 1. No acute abdominal or pelvic abnormality. 2. Diverticulosis coli. 3. Stable 16mm right adrenal nodule. 4. Mild cardiomegaly. 5. Small bilateral pleural effusions and mild bibasilar atelectasis. 6. Additional findings detailed above. Electronically Signed: Homar Ramirez MD at 15:42 EDT , Treatment and Re-Evaluation :: I have personally performed a face to face assessment of the patient and have reviewed the SHERYL Note. I performed a substantive portion of the visit including all aspects of the following. My miranda findings include: History is 78-year-old male with reported diarrhea for over 2 months, reportedly being worked up as an outpatient by primary care. Complains of generalized weakness. Exam is afebrile. Vital signs noted. Regular rate and rhythm. Lungs clear to auscultation bilaterally. Abdomen soft nontender with normal active bowel sounds. Medical Decision Making in the differential diagnosis is colitis versus diverticulitis versus dehydration versus other electrolyte abnormality including hypokalemia. Check labs. Check CT. Stool studies if patient can produce a sample. This point in time, patient was signed out to the oncoming physician, Dr. Diego Maya to check the CT scan. If there is no acute process, I do feel that he could be discharged to follow-up with his primary care provider as I have reviewed his laboratory work and there is no significant dehydration noted. Disposition is pending CT scan results, but anticipated to be likely discharge. He is in stable condition. Other additions or changes: [None] Discharge Plan Triage Chief Complaint: Diarrhea ED Midlevel Provider: Estella Figueroa ED Provider: Jayesh Mccarthy Dx/Rx/DC Orders Clinical Impression: Diarrhea Instructions: ED Diarrhea, Unknown Cause Prescriptions: No Action warfarin [Jantoven] 4 MG tablet 4 mg PO SUTUWETHFRSA atorvastatin 40 MG tablet 80 mg PO DAILY isosorbide mononitrate 30 MG tablet 30 mg PO DAILY Patient Comments: Heart allopurinol 100 MG tablet 100 mg PO DAILYCM levothyroxine 25 MCG tablet 50 mcg PO DAILY pantoprazole 40 MG tablet 40 mg PO BID Patient Comments: stomach ferrous sulfate 325 MG tablet 325 mg PO DAILY metoprolol tartrate 25 MG tablet 25 mg PO DAILY gabapentin 300 MG capsule 300 mg PO DAILY tamsulosin 0.4 mg capsule 0.4 mg PO DAILY Patient Comments: Take 1 capsule by mouth once a day aspirin 81 mg capsule 81 mg PO DAILY finasteride 5 mg tablet 5 mg PO DAILY warfarin [Maytoven] 2 mg tablet 2 mg PO DAILY Patient Comments: AT BEDTIME ON MONDAYS ONLY cefdinir 300 mg capsule 300 mg PO BID Qty: 10 0RF furosemide [Lasix] 40 mg tablet 40 mg PO DAILY Qty: 30 0RF [facility] Referrals: Chicho Andres DO [Med Staff - Active Staff] - 5-7 Days [facility] [Primary Care Provider[facility] - Activity Restrictions/Additional Instructions: Follow-up with PCP and the GI doctor, return for any worsening of your symptoms. Print Language: Slovenian Disposition Disposition: Home, Self Care Discharge Date/Time: 11/02/23 17:05
[2023-11-02 14:39] LABS: Anion Gap 7 (5-15); BUN 13 mg/dL (7-18); BUN/Creat Ratio 17.2 RATIO (10-20); Calcium,Total 8.3 mg/dL (8.5-10.1); Chloride 104 mmol/L (98-107); Creatinine, Serum 0.76 mg/dL (0.70-1.30); EST Glomerular Filtration Rate 106 mL/min (>60); Est Glom Filt Rate - Afr Amer 129 mL/min (>60); Estimated Creatinine Clearance 92.22 ml/min; Glucose 108 mg/dL (74-106); Potassium 3.7 mmol/L (3.5-5.1); Sodium Level 139 mmol/L (136-145)
[2023-11-02] MEDS: 0.9% Normal Saline (1000mL) 1,000 ML 999 ML IV (15:05)
[2023-11-02 15:32] VITALS: BP 144/62; PULSE 74; RESP 18; O2SAT 96
[2023-11-02 16:57] VITALS: BP 105/78; PULSE 86; RESP 14; TEMP 37; O2SAT 95
== END 2023-11-02 17:05 | disposition home or self-care (01) ==
PROVIDERS: Physician Assistant; Emergency Provider Emergency Medicine; Visit Provider Emergency Medicine
DX: R19.7 Diarrhea, unspecified (principal); E78.00 Pure hypercholesterolemia, unspecified; Z87.891 Personal history of nicotine dependence; Z86.73 Personal history of transient ischemic attack (TIA), and cerebral infarction without residual deficits; I10 Essential (primary) hypertension; Z95.2 Presence of prosthetic heart valve; I25.10 Atherosclerotic heart disease of native coronary artery without angina pectoris; Z95.5 Presence of coronary angioplasty implant and graft
CPT/HCPCS: 74177; 80048; 85025; 96360; 99282; J7030; Q9967; A4216

== ENCOUNTER 2024-02-13 16:04 | Emergency (ER) | payer OTHER, SELFPAY ==
[2024-02-13 16:05] VITALS: BP 140/96; PULSE 87; RESP 16; TEMP 36.7; O2SAT 100; BMI 34.9
--- NOTE | 2024-02-13 16:27 | EX.ED.DYSGE1 ---
HPI History of Present Illness Chief Complaint: Lower Extremity Injury Detail of Chief Complaint: Ecchymosis and bruising above right hip Informant: patient and spouse/S.O. Narrative Narrative: Patient presents with ecchymosis and bruising about the right hip that initially was mild and started after a fall 4 days ago. Patient was seen at the [place] emergency department where he states he had a CT of his brain as well as an x-ray of his right arm and a CT of his hip. Patient states that there was no fracture of his hip. He did have a fracture of his proximal humerus and he is in a sling. Patient was referred to the [place]. Patient states initially had a some just mild ecchymosis and bruising over the area of the right hip but since has significantly worsened. He complains of pain with walking. He is ambulatory. Patient is on Coumadin and his last INR was January 16 and was 3.2. [facility] Medical History Wears hearing aid Thyroid disease High cholesterol Excessive bleeding Back pain Migraine headache Stroke/cerebrovascular accident History of IBS Gastric reflux Former smoker Sleep apnea Shortness of breath on exertion Leg cramps History of pain when walking History of edema History of echocardiogram History of stress test Cardiology follow-up encounter FH: bilateral hip replacements Home Medications ?Medication ?Instructions ?Recorded ?Last Taken ?Type warfarin 4 mg tablet (Jantoven) 4 mg PO SUTUWETHFRSA blood thinner 04/03/16 01/08/23 History allopurinol 100 mg tablet 100 mg PO DAILYCM gout 04/04/16 05/18/23 History atorvastatin 40 mg tablet 80 mg PO DAILY cholesterol 04/04/16 05/18/23 History ferrous sulfate 325 mg (65 mg 325 mg PO DAILY supplement 04/04/16 05/18/23 History iron) tablet isosorbide mononitrate 30 mg 30 mg PO DAILY chest pain 04/04/16 05/18/23 History tablet,extended release 24 hr levothyroxine 25 mcg tablet 50 mcg PO DAILY thyroid 04/04/16 05/18/23 History metoprolol tartrate 25 mg tablet 25 mg PO DAILY blood pressure 04/04/16 05/18/23 History pantoprazole 40 mg tablet,delayed 40 mg PO BID reflux 04/04/16 05/18/23 History release gabapentin 300 mg capsule 300 mg PO DAILY nerve pain 01/10/20 05/18/23 History tamsulosin 0.4 mg capsule 0.4 mg PO DAILY prostate 07/09/22 05/18/23 History aspirin 81 mg capsule 81 mg PO DAILY heart health 01/10/23 05/18/23 History finasteride 5 mg tablet 5 mg PO DAILY prostate 05/18/23 05/18/23 History warfarin 2 mg tablet (Jantoven) 2 mg PO DAILY blood thinner 05/19/23 Unknown History cefdinir 300 mg capsule 300 mg PO BID #10 caps 05/23/23 Unknown Rx furosemide 40 mg tablet (Lasix) 40 mg PO DAILY #30 tabs 05/23/23 Unknown Rx hydrocodone-acetaminophen 5-325mg 1 tab PO Q4H PRN PRN Pain 2 days 02/13/24 Unknown Rx 5mg-325mg #14 TABLETS Allergy/AdvReac Type Severity Reaction Status Date / Time hydrocodone bitartrate (From Allergy Other Verified 02/13/24 16:08 Vicodin) Surgical History History of heart surgery History of cardiac catheterization History of coronary artery stent placement Hx laparoscopic cholecystectomy Hx of aortic valve replacement History of open heart surgery Social History household members: spouse Smoking Status: Former smoker ROS ROS ED Review of Systems ROS Unobtainable: other Constitutional Constitutional ED: Reports lethargy; Denies chills, fever(s), sweats or weight loss Eyes Eyes: Denies blurry vision, change in vision or diplopia ENT ENT ED: Denies rhinorrhea or sore throat Cardiovascular Cardiovascular: Denies chest pain, orthopnea or racing heartbeat Respiratory/Chest Respiratory/Chest: Denies cough, dyspnea, dyspnea on exertion, orthopnea or sputum Gastrointestinal Gastrointestinal: Denies abdominal pain, diarrhea, nausea or vomiting Genitourinary Genitourinary ED: Denies dysuria, hematuria or urinary frequency Musculoskeletal Musculoskeletal: Reports other Details: Right hip pain ; Denies arthralgias, back pain, myalgias or neck pain Integumentary Reports other Details: Ecchymosis and bruising right hip ; Denies abscess, Abrasions or rash Neurologic Neurologic: Denies headache(s) or weakness Psychiatric Psychiatric: Denies anxiety, depression or suicidal thoughts Endocrine Endocrinology: Denies polydipsia, polyphagia or polyuria Hematologic/Lymphatic Hematologic/Lymphatic: Denies easy bleeding, easy bruising or lymphadenopathy Allergic/Immunologic Allergic/Immunologic ED: Denies mouth swelling, tongue swelling or urticaria EXAM Physical Exam Const Vital Signs: 02/13/24 16:05 Temperature 98.1 F Temperature Source Temporal Pulse Rate 87 Respiratory Rate 16 Blood Pressure 140/96 H Blood Pressure Mean 110 Pulse Ox 100 Oxygen Delivery Method Room Air Positive well nourished and well developed General Appearance ED: well developed and NAD HEENT Reports TM's clear and moist mucous membranes normocephalic and atraumatic; Negative for trauma or tenderness Tympanic Membrane ED: Yes TM's clear Eyes PERRL and EOMs intact bilaterally General Eye ED: Negative for pale conjunctiva or scleral icterus Neck no lymphadenopathy, supple and no JVD General: Negative for tenderness Chest Wall inspection of chest normal and palpation of chest normal Chest: Negative for tenderness Resp normal respiratory effort and clear to auscultation bilaterally Effort and Inspection: Negative for respiratory distress or pain with movement Auscultation: Negative for rhonchi, wheezes or diminished lung sounds Cardio regular rate, regular rhythm, S1 normal heart sound, S2 normal heart sound and no murmurs Peripheral Pulses: pulses 2+ throughout GI normal to inspection, nondistended, normoactive bowel sounds, soft to palpation, non-tender, non-distended and no masses Back/Spine no CVA tenderness and no thoracic nor lumbar tenderness Extremity Extremity Narrative: Right hip-patient does have ecchymosis and bruising superior to the right hip extending to the right lumbar paraspinal musculature subcu tissue. With hematoma. No bony tenderness on exam. No CVA tenderness on exam. General Extremety ED: Negative for edema General Extremity: Negative for edema Neuro oriented x3, CN's II-XII intact bilaterally, no sensory deficits noted and gait normal Sensorium / Orientation: awake, alert, oriented to person, oriented to place and oriented to time Motor Exam: strength 5/5 throughout and strength abnormal Psych mental status grossly normal Skin no rashes or lesions noted and no wounds MDM MDM MDM Narrative Medical decision making narrative: Patient presents with a fall that occurred 4 days ago. He has increased ecchymosis and bruising over the area of the right hip. He is on Coumadin. Will obtain an INR and a CBC to evaluate further. I do not feel he needs repeat imaging as he is ambulatory. CBC with differential obtained showed a white count of 9.0 with hemoglobin 9.2 and platelet count of 237. Patient last hemoglobin for comparison was in October and was 11.3. Patient's INR is 3.5 and he takes Coumadin for history of aortic valve replacement and has a mechanical heart valve. Chemistries were unremarkable. I did obtain a CT scan of the abdomen and pelvis with IV contrast to rule out any acute ongoing hemorrhage and this was essentially unremarkable. Orthostatic vital signs will be obtained and patient will be discharged to home. I will write him a prescription for a few [place] for pain. I advised patient to take half his Coumadin dose this evening and then resume his regular dosing tomorrow. Lab Data Attestation: I reviewed the patient's lab results. Labs: Laboratory Results - last 24 hr 02/13/24 02/13/24 16:35 18:25 WBC 9.0 RBC 3.27 L Hgb 9.2 L Hct 28.9 L MCV 88.4 MCH 28.1 MCHC 31.8 L RDW Std Deviation 58.8 H RDW Coeff of Clement 17.9 H Plt Count 237 MPV 10.8 Immature Gran % (Auto) 0.900 Neut % (Auto) 77.1 H Lymph % (Auto) 12.2 L [place] % (Auto) 7.2 Eos % (Auto) 2.3 Baso % (Auto) 0.3 Absolute Neuts (auto) 6.9 Absolute Lymphs (auto) 1.10 Nucleated RBC % 0.2 PT 35.5 H INR 3.6 Sodium 137 Potassium 4.1 Chloride 102 Carbon Dioxide 29.0 Anion Gap 6 BUN 23 H Creatinine 1.04 Estim Creat Clear Calc 68.53 Est GFR (MDRD) Af Amer 89 Est GFR (MDRD) Non-Af 73 BUN/Creatinine Ratio 22.1 H Glucose 113 H Calcium 8.8 Radiography Diagnostic Testing: Clinical Impression(s) from Imaging Studies Abdomen/Pelvis CT 02/13/24 17:58 IMPRESSION: No acute abnormalities in the abdomen or pelvis. Stable chronic findings as above. Electronically Signed: Reginald Melo MD at 20:01 EDT , Discharge Plan Triage Chief Complaint: Lower Extremity Injury ED Provider: Anup Guerrero Dx/Rx/DC Orders Clinical Impression: Hematoma of right hip, Closed right humeral fracture Instructions: Bruises (Contusions), ED Fracture, Upper Extremity Prescriptions: New hydrocodone-acetaminophen 5-325 mg tablet 1 tab PO Q4H PRN PRN (Reason: Pain) 2 Days Qty: 14 0RF No Action warfarin [Jantoven] 4 MG tablet 4 mg PO SUTUWETHFRSA atorvastatin 40 MG tablet 80 mg PO DAILY isosorbide mononitrate 30 MG tablet 30 mg PO DAILY Patient Comments: Heart allopurinol 100 MG tablet 100 mg PO DAILYCM levothyroxine 25 MCG tablet 50 mcg PO DAILY pantoprazole 40 MG tablet 40 mg PO BID Patient Comments: stomach ferrous sulfate 325 MG tablet 325 mg PO DAILY metoprolol tartrate 25 MG tablet 25 mg PO DAILY gabapentin 300 MG capsule 300 mg PO DAILY tamsulosin 0.4 mg capsule 0.4 mg PO DAILY Patient Comments: Take 1 capsule by mouth once a day aspirin 81 mg capsule 81 mg PO DAILY finasteride 5 mg tablet 5 mg PO DAILY warfarin [Jantoven] 2 mg tablet 2 mg PO DAILY Patient Comments: AT BEDTIME ON MONDAYS ONLY cefdinir 300 mg capsule 300 mg PO BID Qty: 10 0RF furosemide [Lasix] 40 mg tablet 40 mg PO DAILY Qty: 30 0RF [facility] [Primary [facility] Provider] - Print Language: Cuban Disposition Disposition: Home, Self Care
[2024-02-13 16:41] LABS: Absolute Neutrophil Count 6.9 X10^3/uL (2.0-7.7); Basophil# 0.03 X10^3/uL; Basophil% 0.3 % (0-1); Eosinophil# 0.21 X10^3/uL; Eosinophils% 2.3 % (0-5); Hematocrit 28.9 % (40-54); Hemoglobin 9.2 g/dL (13.0-16.5); Lymphocyte % 12.2 % (19-41); Mean Corp Hgb Conc 31.8 g/dL (32-36); Mean Corpuscular Hgb 28.1 pg (27.0-32.0); Mean Corpuscular Volume 88.4 fL (80-94); Mean Platelet Vol. 10.8 fl (6.2-12.0); Monocyte# 0.65 X10^3/uL; Monocyte% 7.2 % (0-10); NRBC Flagged by Analyzer 0.2 % (0-5); Neutrophil # 6.94 X10^3/uL (2.7-7.7); Neutrophil % 77.1 % (47-70); Platelet Count 237 K/mm3 (150-450); RBC Distribution Width CV 17.9 % (11.6-14.6); RBC Distribution Width SD 58.8 fl (35.1-43.9); Red Blood Count 3.27 M/mm3 (4.6-6.2)
[2024-02-13 16:55] LABS: International Normalized Ratio 3.6; Prothrombin Time (Protime)PT. 35.5 SECONDS (11.7-14.9)
--- NOTE | 2024-02-13 17:58 | CT_ITS ---
INDICATION: fall, right flank hematoma EXAMINATION: CT Abdomen And Pelvis W/ Contrast Injection TECHNIQUE: Helically acquired images were obtained of the abdomen and pelvis after IV contrast. A radiation dose optimization technique was used for this scan. IV Contrast dosage and agent: IV 100mL [id number] Oral contrast: None. COMPARISON: 11/02/2023. FINDINGS: Visualized lung bases: Unremarkable Liver: Unremarkable Gallbladder: Not visualized. Spleen: Unremarkable Pancreas: Unremarkable Adrenal Glands: 1.3 cm intermediate density nodule in the right adrenal gland, similar in appearance to prior on 11/02/2023. Kidneys: No hydronephrosis or obstructing renal/ureteral stone. Vasculature: Moderate aortoiliac atherosclerotic disease. GI Tract: Hiatal hernia. Diverticulosis without evidence of diverticulitis. Lymphadenopathy: None Peritoneum: No ascites. Bladder: Unremarkable Reproductive organs: Unremarkable Bones/Soft tissues: There are diffuse degenerative changes of the spine. Stable chronic compression deformity of L4. CT/Abdomen/Pelvis W IV Cont ONLY IMPRESSION: No acute abnormalities in the abdomen or pelvis. Stable chronic findings as above. Electronically Signed: Reginald Melo MD at 20:01 EDT ,
[2024-02-13 18:45] LABS: Anion Gap 6 (5-15); BUN 23 mg/dL (7-18); BUN/Creat Ratio 22.1 RATIO (10-20); Calcium,Total 8.8 mg/dL (8.5-10.1); Chloride 102 mmol/L (98-107); Creatinine, Serum 1.04 mg/dL (0.70-1.30); EST Glomerular Filtration Rate 73 mL/min (>60); Est Glom Filt Rate - Afr Amer 89 mL/min (>60); Estimated Creatinine Clearance 68.53 ml/min; Glucose 113 mg/dL (74-106); Potassium 4.1 mmol/L (3.5-5.1); Sodium Level 137 mmol/L (136-145)
[2024-02-13 20:04] VITALS: BP 144/69; PULSE 85; RESP 18; O2SAT 99
[2024-02-13 20:25] VITALS: BP 144/69; PULSE 85; RESP 18; TEMP 36.4; O2SAT 99
== END 2024-02-13 20:36 | disposition home or self-care (01) ==
PROVIDERS: Emergency Provider Emergency Medicine; Visit Provider Emergency Medicine
DX: S70.01XD Contusion of right hip, subsequent encounter (principal); S42.301D Unspecified fracture of shaft of humerus, right arm, subsequent encounter for fracture with routine healing; Z87.891 Personal history of nicotine dependence; Z79.01 Long term (current) use of anticoagulants; E78.00 Pure hypercholesterolemia, unspecified; Z95.2 Presence of prosthetic heart valve; Z95.5 Presence of coronary angioplasty implant and graft; Z90.49 Acquired absence of other specified parts of digestive tract; Z86.73 Personal history of transient ischemic attack (TIA), and cerebral infarction without residual deficits; W19.XXXD Unspecified fall, subsequent encounter
CPT/HCPCS: 74177; 80048; 85025; 85610; 99283; Q9967; A4216

== ENCOUNTER 2024-03-22 15:20 | Emergency (ER) | payer OTHER, SELFPAY ==
[2024-03-22 15:22] VITALS: BP 130/77; PULSE 66; RESP 18; TEMP 36.2; O2SAT 100; BMI 33.0
[2024-03-22 15:46] VITALS: O2SAT 98
--- NOTE | 2024-03-22 15:53 | ED.VIS.FALL ---
HPI HPI - Fall History of Present Illness Chief Complaint: Fall Informant: patient Occured/Mechanism Occurred: Today Mechanism/Context: Yes same level fall and Yes slip Pain/Injury Location: Head, right shoulder, right elbow Pain Location: head and upper extremity Quality of Pain: Sharp Worsened by: Nothing Relieved by: Nothing Associated Symptoms Associated Symptoms: Negative for Parasthesias, Weakness, Loss of function, Inability to ambulate, Loss of consciousness or Amnesia Narrative Narrative: Patient presents after a fall that occurred today. Patient states he slipped on wet floor and fell. Patient has a recent proximal humerus fracture and is in a sling. Patient hit his head on a sewing table. states that the table was moved approximately 3 feet. Patient denies any loss of consciousness. Patient denies any paresthesias or weakness. Patient is on Coumadin because of an aortic valve replacement. Patient denies any nausea or vomiting. Patient denies any visual changes. Patient states that shoulder pain is worse with any movement. Patient denies any other injuries. [facility] Medical History (Updated 03/22/24 @ 17:[address] Arian Rodgers, ) Wears hearing aid Thyroid disease High cholesterol Excessive bleeding Back pain Migraine headache Stroke/cerebrovascular accident History of IBS Gastric reflux Former smoker Sleep apnea Shortness of breath on exertion Leg cramps History of pain when walking History of edema History of echocardiogram History of stress test Cardiology follow-up encounter FH: bilateral hip replacements Home Medications ?Medication ?Instructions ?Recorded ?Last Taken ?Type warfarin 4 mg tablet (Jantoven) 4 mg PO SUTUWETHFRSA blood thinner 04/03/16 01/08/23 History allopurinol 100 mg tablet 100 mg PO DAILYCM gout 04/04/16 05/18/23 History atorvastatin 40 mg tablet 80 mg PO DAILY cholesterol 04/04/16 05/18/23 History ferrous sulfate 325 mg (65 mg 325 mg PO DAILY supplement 04/04/16 05/18/23 History iron) tablet isosorbide mononitrate 30 mg 30 mg PO DAILY chest pain 04/04/16 05/18/23 History tablet,extended release 24 hr levothyroxine 25 mcg tablet 50 mcg PO DAILY thyroid 04/04/16 05/18/23 History metoprolol tartrate 25 mg tablet 25 mg PO DAILY blood pressure 04/04/16 05/18/23 History pantoprazole 40 mg tablet,delayed 40 mg PO BID reflux 04/04/16 05/18/23 History release gabapentin 300 mg capsule 300 mg PO DAILY nerve pain 01/10/20 05/18/23 History tamsulosin 0.4 mg capsule 0.4 mg PO DAILY prostate 07/09/22 05/18/23 History aspirin 81 mg capsule 81 mg PO DAILY heart health 01/10/23 05/18/23 History finasteride 5 mg tablet 5 mg PO DAILY prostate 05/18/23 05/18/23 History warfarin 2 mg tablet (Jantoven) 2 mg PO DAILY blood thinner 05/19/23 Unknown History cefdinir 300 mg capsule 300 mg PO BID #10 caps 05/23/23 Unknown Rx furosemide 40 mg tablet (Lasix) 40 mg PO DAILY #30 tabs 05/23/23 Unknown Rx hydrocodone-acetaminophen 5-325mg 1 tab PO Q4H PRN PRN Pain 2 days 02/13/24 Unknown Rx 5mg-325mg #14 TABLETS Allergy/AdvReac Type Severity Reaction Status Date / Time hydrocodone bitartrate (From Allergy Other Verified 03/22/24 15:48 Vicodin) Surgical History (Updated 03/22/24 @ 15:[address] Arian Rodgers DO) History of total right hip replacement History of total left hip replacement History of heart surgery History of cardiac catheterization History of coronary artery stent placement Hx laparoscopic cholecystectomy Hx of aortic valve replacement History of open heart surgery Social History household members: spouse Smoking Status: Former smoker ROS ROS ED Constitutional Constitutional ED: Denies chills or fever(s) Eyes Eyes: Denies blurry vision or change in vision ENT ENT ED: Denies rhinorrhea or sore throat Cardiovascular Cardiovascular: Denies chest pain or palpitations Respiratory/Chest Respiratory/Chest: Denies cough or dyspnea Gastrointestinal Gastrointestinal: Denies nausea or vomiting Genitourinary Genitourinary ED: Denies dysuria or hematuria Musculoskeletal Musculoskeletal: Reports neck pain; Denies back pain Integumentary Denies abscess or rash Neurologic Neurologic: Denies headache(s) or weakness Allergic/Immunologic Allergic/Immunologic ED: Denies mouth swelling or urticaria EXAM Physical Exam Const Vital Signs: 03/22/24 15:22 03/22/24 15:46 03/22/24 16:21 Temperature 97.2 F L Temperature Source Temporal Pulse Rate 66 59 L Respiratory Rate 18 16 Respiratory Effort Normal Respiratory Depth Normal Respiratory Pattern Normal Blood Pressure 130/77 H 146/50 H Blood Pressure Mean 94 82 Pulse Ox 100 98 97 Oxygen Delivery Method Room Air Room Air Room Air 03/22/24 17:00 Temperature Temperature Source Pulse Rate 61 Respiratory Rate 16 Respiratory Effort Respiratory Depth Respiratory Pattern Blood Pressure 132/78 H Blood Pressure Mean 96 Pulse Ox 97 Oxygen Delivery Method Room Air Positive well nourished and well developed General Appearance ED: well developed and NAD HEENT Reports normocephalic Neck full ROM and supple Resp normal respiratory effort and clear to auscultation bilaterally Cardio regular rate and regular rhythm Neuro oriented x3, CN's II-XII intact bilaterally, moves all extremities, no focal motor deficits and no sensory deficits noted Al Coma Scale: document GCS findings Spontaneous Obeys Commands Oriented 15 Sensorium / Orientation: alert Motor Exam: strength 5/5 throughout MDM MDM MDM Narrative Medical decision making narrative: Differential diagnosis includes intracranial bleeding, closed head injury, shoulder fracture, contusion, dislocation, and humerus fracture. X-rays of the right humerus will be obtained to assess for fracture or dislocation. CT scan of the brain will be obtained to assess for intracranial bleeding. Radiography Diagnostic Testing: Clinical Impression(s) from Imaging Studies Brain CT 03/22/24 16:00 IMPRESSION: No acute intracranial pathology of the brain. Electronically Signed: Kali Nails DO at 16:58 EST Reading Location ID and State: [address] [place] [address] Tel [phone], Service support , CT scan of the brain was obtained. There is no acute intracranial abnormality. This was interpreted by the radiologist and was also independently reviewed by myself. X-rays of the right humerus were obtained. There are 3 views. On my independent interpretation, there is a nondisplaced proximal humerus fracture. There is no angulation. There is no dislocation. Radiologist also interpreted the x-rays and agrees. Treatment and Re-Evaluation Narrative: Patient was advised of his findings. Patient was instructed to continue wearing his sling as previously prescribed. Patient was instructed to follow-up with his primary care physician in 5 to 7 days. Patient was instructed return if worse in any way. Patient understood and was agreeable with the plan. All questions were answered. Discharge Plan Triage Chief Complaint: Fall ED Provider: Arian Rodgers Dx/Rx/DC Orders Clinical Impression: Closed fracture of right proximal humerus, Fall, Closed head injury Instructions: ED Head Injury (Adult), ED Fracture, Shoulder Prescriptions: No Action warfarin [Jantoven] 4 MG tablet 4 mg PO SUTUWETHFRSA atorvastatin 40 MG tablet 80 mg PO DAILY isosorbide mononitrate 30 MG tablet 30 mg PO DAILY Patient Comments: Heart allopurinol 100 MG tablet 100 mg PO DAILYCM levothyroxine 25 MCG tablet 50 mcg PO DAILY pantoprazole 40 MG tablet 40 mg PO BID Patient Comments: stomach ferrous sulfate 325 MG tablet 325 mg PO DAILY metoprolol tartrate 25 MG tablet 25 mg PO DAILY gabapentin 300 MG capsule 300 mg PO DAILY tamsulosin 0.4 mg capsule 0.4 mg PO DAILY Patient Comments: Take 1 capsule by mouth once a day aspirin 81 mg capsule 81 mg PO DAILY finasteride 5 mg tablet 5 mg PO DAILY warfarin [Jantoven] 2 mg tablet 2 mg PO DAILY Patient Comments: AT BEDTIME ON MONDAYS ONLY cefdinir 300 mg capsule 300 mg PO BID Qty: 10 0RF furosemide [Lasix] 40 mg tablet 40 mg PO DAILY Qty: 30 0RF hydrocodone-acetaminophen 5-325 mg tablet 1 tab PO Q4H PRN PRN (Reason: Pain) 2 Days Qty: 14 0RF [facility]Primary [facility] - 5-7 Days Print Language: Macedonian Disposition Disposition: Home, Self Care
--- NOTE | 2024-03-22 16:00 | CT_ITS ---
STUDY: CT BRAIN WITHOUT CONTRAST REASON FOR EXAM: Male, 78 years old. Injury/Pain RADIATION DOSAGE (If Supplied By Facility): CTDIvol = ( 44.99 ) mGy, DLP = ( 829.85 ) mGycm TECHNIQUE: Transaxial CT imaging of the brain was performed without administration of intravenous contrast material. Individualized dose optimization techniques were used for this CT. COMPARISON: No relevant priors. FINDINGS: Normal soft tissue structures. Normal calvarium. Normal size ventricles and extra-axial spaces for the patient''s age. Left frontal encephalomalacia. Normal white matter tracts of the cerebral hemispheres. Normal basal ganglia and thalami. Normal brainstem. Normal cerebellum. There is no intracranial hemorrhage. There are no findings of an acute ischemic infarction. Normal visualized paranasal sinuses. CT/Brain/Head without Contrast IMPRESSION: No acute intracranial pathology of the brain. Electronically Signed: Kali Nails DO at 16:58 EST ,
--- NOTE | 2024-03-22 16:01 | RAD_ITS ---
INDICATION: Injury/Pain EXAMINATION/TECHNIQUE: X-RAY - RIGHT XR Humerus Min 2 Views 3 VIEWS COMPARISON: FINDINGS: SOFT TISSUES: No soft tissue swelling or gas. No radiopaque foreign body. BONES/JOINTS: Fracture at the proximal end of the humerus . Preservation of the joint space.. No sclerotic or destructive changes observed. RAD/Humerus min 2 Views IMPRESSION: Fracture at the proximal end of the humerus. Electronically Signed: Kali Nails DO at 17:41 EST ,
[2024-03-22 16:21] VITALS: BP 146/50; PULSE 59; RESP 16; O2SAT 97
[2024-03-22 17:00] VITALS: BP 132/78; PULSE 61; RESP 16; O2SAT 97
== END 2024-03-22 17:44 | disposition home or self-care (01) ==
PROVIDERS: Emergency Provider Emergency Medicine; Visit Provider Emergency Medicine
DX: S42.201A Unspecified fracture of upper end of right humerus, initial encounter for closed fracture (principal); S09.90XA Unspecified injury of head, initial encounter; E78.00 Pure hypercholesterolemia, unspecified; Z87.891 Personal history of nicotine dependence; Z79.01 Long term (current) use of anticoagulants; W01.190A Fall on same level from slipping, tripping and stumbling with subsequent striking against furniture, initial encounter; Z79.82 Long term (current) use of aspirin; Z95.5 Presence of coronary angioplasty implant and graft; Z95.2 Presence of prosthetic heart valve; Z90.49 Acquired absence of other specified parts of digestive tract
CPT/HCPCS: 70450; 73060; 99282

== ENCOUNTER 2024-12-18 14:10 | Observation (INO) | payer OTHER, SELFPAY ==
[2024-12-18] VITALS (9 sets, daily range): BP systolic 135–161; BP diastolic 53–86; PULSE 59–72; RESP 16–29; TEMP 36.4–36.7; O2SAT 95–97; BMI 32.6; BMI 31.4
--- NOTE | 2024-12-18 14:28 | EKG12_ITS ---
Test Reason : Blood Pressure : */* mmHG Vent. Rate : 61 BPM Atrial Rate : * BPM P-R Int : * ms QRS Dur : 82 ms QT Int : 366 ms P-R-T Axes : * 19 105 degrees QTcB Int : [address] & T wave abnormality, consider anterolateral ischemia Abnormal ECG Confirmed by SHANA ALCAZAR, COURT ([id number]), newspaper copy editor FEDERICO ROSS ([id number]) on 12/19/2024 1:35:15 PM Referred By: Confirmed By: COURT SALDANA MD
--- NOTE | 2024-12-18 14:30 | EX.ED.DYSGE1 ---
HPI History of Present Illness Chief Complaint: Dizziness Detail of Chief Complaint: Dizziness and not feeling well Informant: patient Narrative Narrative: Patient presents to the emergency department with complaint of dizziness and not feeling well for about a week. Patient states that she has had intermittent episodes for the last week especially worse with standing but can happen while seated as well. Today he was sitting and developed sudden onset of some blurred vision. Patient states that he could still see but everything looked like it was in a picture frame and that lasted less than a minute. Patient generally just feels weak. He is currently on Coumadin. He has had an aortic valve replacement in the past but states that he needs another one he is good to find out in about 5 days when that can happen. He denies chest pain. He has had a cough for about a week. Cough is nonproductive. He denies fever. He does describe some mild dysuria. [facility] Medical History (Updated 12/18/24 @ 18:[address] Anup Guerrero, DO) Wears hearing aid Thyroid disease High cholesterol Excessive bleeding Back pain Migraine headache Stroke/cerebrovascular accident History of IBS Gastric reflux Former smoker Sleep apnea Shortness of breath on exertion Leg cramps History of pain when walking History of edema History of echocardiogram History of stress test Cardiology follow-up encounter FH: bilateral hip replacements Home Medications ?Medication ?Instructions ?Recorded ?Last Taken ?Type warfarin 4 mg tablet (Jantoven) 4 mg PO SUTUWETHFRSA blood thinner 04/03/16 01/08/23 History allopurinol 100 mg tablet 100 mg PO DAILYCM gout 04/04/16 05/18/23 History atorvastatin 40 mg tablet 80 mg PO DAILY cholesterol 04/04/16 05/18/23 History ferrous sulfate 325 mg (65 mg 325 mg PO DAILY supplement 04/04/16 05/18/23 History iron) tablet isosorbide mononitrate 30 mg 30 mg PO DAILY chest pain 04/04/16 05/18/23 History tablet,extended release 24 hr levothyroxine 25 mcg tablet 50 mcg PO DAILY thyroid 04/04/16 05/18/23 History metoprolol tartrate 25 mg tablet 25 mg PO DAILY blood pressure 04/04/16 05/18/23 History pantoprazole 40 mg tablet,delayed 40 mg PO BID reflux 04/04/16 05/18/23 History release gabapentin 300 mg capsule 300 mg PO DAILY nerve pain 01/10/20 05/18/23 History tamsulosin 0.4 mg capsule 0.4 mg PO DAILY prostate 07/09/22 05/18/23 History aspirin 81 mg capsule 81 mg PO DAILY heart health 01/10/23 05/18/23 History finasteride 5 mg tablet 5 mg PO DAILY prostate 05/18/23 05/18/23 History warfarin 2 mg tablet (Jantoven) 2 mg PO DAILY blood thinner 05/19/23 Unknown History cefdinir 300 mg capsule 300 mg PO BID #10 caps 05/23/23 Unknown Rx furosemide 40 mg tablet (Lasix) 40 mg PO DAILY #30 tabs 05/23/23 Unknown Rx hydrocodone-acetaminophen 5-325mg 1 tab PO Q4H PRN PRN Pain 2 days 02/13/24 Unknown Rx 5mg-325mg #14 TABLETS Allergy/AdvReac Type Severity Reaction Status Date / Time hydrocodone bitartrate (From Allergy Other Verified 03/22/24 15:48 Vicodin) Surgical History History of total right hip replacement History of total left hip replacement History of heart surgery History of cardiac catheterization History of coronary artery stent placement Hx laparoscopic cholecystectomy Hx of aortic valve replacement History of open heart surgery Social History household members: spouse Smoking Status: Former smoker ROS ROS ED Review of Systems ROS Unobtainable: other Constitutional Constitutional ED: Reports lethargy; Denies chills, fever(s), sweats or weight loss Eyes Eyes: Reports blurry vision; Denies change in vision or diplopia ENT ENT ED: Denies rhinorrhea or sore throat Cardiovascular Cardiovascular: Denies chest pain, orthopnea or racing heartbeat Respiratory/Chest Respiratory/Chest: Reports cough; Denies dyspnea, dyspnea on exertion, orthopnea or sputum Gastrointestinal Gastrointestinal: Denies abdominal pain, diarrhea, nausea or vomiting Genitourinary Genitourinary ED: Denies dysuria, hematuria or urinary frequency Musculoskeletal Musculoskeletal: Denies arthralgias, back pain, myalgias or neck pain Integumentary Denies abscess, Abrasions or rash Neurologic Neurologic: Reports other Details: Dizziness ; Denies headache(s) or weakness Psychiatric Psychiatric: Denies anxiety, depression or suicidal thoughts Endocrine Endocrinology: Denies polydipsia, polyphagia or polyuria Hematologic/Lymphatic Hematologic/Lymphatic: Denies easy bleeding, easy bruising or lymphadenopathy Allergic/Immunologic Allergic/Immunologic ED: Denies mouth swelling, tongue swelling or urticaria EXAM Physical Exam Const Vital Signs: 12/18/24 14:10 12/18/24 14:28 12/18/24 16:24 Temperature 98.1 F Temperature Source Oral Pulse Rate 60 66 Pulse Rate [Lying] 59 L Pulse Rate [Sitting (for 1 minute prior to obtaining)] 59 L Pulse Rate [Standing (for 1 minute prior to obtaining)] 66 Respiratory Rate 18 16 Blood Pressure 157/67 H 145/63 H Blood Pressure [Lying] 135/53 H Blood Pressure [Sitting (for 1 minute prior to obtaining)] 141/55 H Blood Pressure [Standing (for 1 minute prior to obtaining)] 140/56 H Blood Pressure Mean 97 90 Blood Pressure Mean [Lying] 80 Blood Pressure Mean [Sitting (for 1 minute prior to obtaining)] 83 Blood Pressure Mean [Standing (for 1 minute prior to obtaining)] 84 Pulse Ox 96 96 Oxygen Delivery Method Room Air Room Air 12/18/24 17:00 Temperature Temperature Source Pulse Rate 60 Pulse Rate [Lying] Pulse Rate [Sitting (for 1 minute prior to obtaining)] Pulse Rate [Standing (for 1 minute prior to obtaining)] Respiratory Rate 16 Blood Pressure 143/64 H Blood Pressure [Lying] Blood Pressure [Sitting (for 1 minute prior to obtaining)] Blood Pressure [Standing (for 1 minute prior to obtaining)] Blood Pressure Mean 90 Blood Pressure Mean [Lying] Blood Pressure Mean [Sitting (for 1 minute prior to obtaining)] Blood Pressure Mean [Standing (for 1 minute prior to obtaining)] Pulse Ox 96 Oxygen Delivery Method Room Air Positive well nourished and well developed General Appearance ED: well developed and NAD HEENT Reports TM's clear and moist mucous membranes normocephalic and atraumatic; Negative for trauma or tenderness Tympanic Membrane ED: Yes TM's clear Eyes PERRL and EOMs intact bilaterally General Eye ED: Negative for pale conjunctiva or scleral icterus Neck no lymphadenopathy, supple and no JVD General: Negative for tenderness Chest Wall inspection of chest normal and palpation of chest normal Chest: Negative for tenderness Resp normal respiratory effort and clear to auscultation bilaterally Effort and Inspection: Negative for respiratory distress or pain with movement Auscultation: Negative for rhonchi, wheezes or diminished lung sounds Cardio regular rate, regular rhythm, S1 normal heart sound and S2 normal heart sound Peripheral Pulses: pulses 2+ throughout GI normal to inspection, nondistended, normoactive bowel sounds, soft to palpation, non-tender, non-distended and no masses Back/Spine no CVA tenderness and no thoracic nor lumbar tenderness Extremity normal to inspection General Extremety ED: Negative for edema General Extremity: Negative for edema Neuro oriented x3, CN's II-XII intact bilaterally, no sensory deficits noted and gait normal Sensorium / Orientation: awake, alert, oriented to person, oriented to place and oriented to time Motor Exam: strength 5/5 throughout and strength abnormal Psych mental status grossly normal Skin no rashes or lesions noted and no wounds MDM MDM MDM Narrative Medical decision making narrative: Patient presents with multiple complaints. He has had intermittent chest discomfort. He complains of dizziness. Complains of some blurred vision today. He has had some mild dysuria. He has had a cough for about a week. IV line established. Orthostatic vital signs obtained were negative. CBC with differential obtained showed a white count of 6.1 with hemoglobin 10.7 and platelet count 277. Chemistries unremarkable. BNP was elevated 4009 101. First troponin was mildly elevated 25 and delta troponin was elevated at 33. Urinalysis with some signs of infection and urine culture was sent. He was ordered Rocephin 1 g IV. Patient's delta troponin is positive. CT scan of the brain without contrast was unremarkable. Will discuss case with hospitalist to evaluate for admission. It is unclear if his cough is infectious versus related to some mild CHF. Lab Data Attestation: I reviewed the patient's lab results. Labs: Laboratory Results - last 24 hr 12/18/24 12/18/24 12/18/24 14:55 16:10 16:45 WBC 6.1 RBC 3.67 L Hgb 10.7 L Hct 33.7 L MCV 91.8 MCH 29.2 MCHC 31.8 L RDW Std Deviation 54.5 H RDW Coeff of Clement 16.0 H Plt Count 277 MPV 10.3 Immature Gran % (Auto) 1.300 H Neut % (Auto) 71.5 H Lymph % (Auto) 14.0 L [place] % (Auto) 8.9 Eos % (Auto) 3.8 Baso % (Auto) 0.5 Absolute Neuts (auto) 4.3 Absolute Lymphs (auto) 0.85 Nucleated RBC % 0 PT 39.3 H INR 3.9 Sodium 139 Potassium 4.4 Chloride 103 Carbon Dioxide 25.3 Anion Gap 10 BUN 8 Creatinine 0.68 L Estim Creat Clear Calc 90.10 Est GFR (MDRD) Non-Af 95 BUN/Creatinine Ratio 12.5 Glucose 90 Lactic Acid 2.1 H* Calcium 8.5 Troponin T High Sens 25 H Troponin T Hi Sens 2 Hr 33 H NT pro BNP II 4901 H Urine Color Yellow Urine Clarity Sl. Cloudy Urine pH 6.5 Ur Specific [place] 1.010 Urine Protein 30 H Urine Glucose (UA) Normal Urine Ketones Negative Urine Occult Blood Negative Urine Nitrite Positive H Urine Bilirubin Negative Urine Urobilinogen 4 H Ur Leukocyte Esterase 500 H Urine RBC 0-5 SEEN Urine WBC 5-10 SEEN Ur Squamous Epith Cells 0-5 SEEN Urine Bacteria 1+ Urine Mucus 0 SEEN Radiography Diagnostic Testing: Clinical Impression(s) from Imaging Studies Chest X-Ray 12/18/24 15:05 IMPRESSION: Pulmonary findings as above. Reading Location: [facility] Brain CT 12/18/24 15:10 IMPRESSION: No acute intracranial abnormality. Left frontotemporal encephalomalacia. Reading Location: [facility] 1 view chest x-ray obtained interpreted by myself as no evidence of infiltrate or pneumothorax or acute disease process. Radiology felt there may be some mild pulmonary congestion. EKG Initial EKG: Attestation: I personally reviewed and interpreted this EKG as follows: Comments: Atrial fibrillation with ventricular rate of [address] changes Discharge Plan Dx/Rx/DC Orders Clinical Impression: Dizziness, Chest pain, Weakness, Elevated troponin, Acute UTI Disposition Disposition: [facility]
--- NOTE | 2024-12-18 14:31 | ED.RN ---
PT NEEDS HIS AORTIC VALVE REPLACED. HE IS GETTING READY TO HAVE THIS PROCEDURE DONE. PT HAS NOT BEEN FELING WELL. VISION IS DESCRIBED KALEIDOSCOPE VISION, BILATERALLY, THAT HAS COME AND GONE.
--- NOTE | 2024-12-18 15:05 | RAD_ITS ---
PROCEDURE: CHEST 1 VIEW (PORTABLE) 12/18/2024 REASON FOR EXAM: COUGH TECHNIQUE: Frontal view of the chest. COMPARISON: 05/2023. FINDINGS: Prior sternotomy. The heart is likely enlarged. Mild vascular indistinctness lung bases favoring mild edema. Infection is possible. No visualized pleural effusion. No acute osseous abnormalities. RAD/Chest 1 View (Portable) IMPRESSION: Pulmonary findings as above. Reading Location: [id number]
[2024-12-18 15:08] LABS: Hematocrit 33.7 % (40-54); Hemoglobin 10.7 g/dL (13.0-16.5); Immature Granulocytes Count 0.080 X10^3/uL (0.0-0.0); Mean Corp Hgb Conc 31.8 g/dL (32-36); Mean Corpuscular Volume 91.8 fL (80-94); Mean Platelet Vol. 10.3 fl (6.2-12.0); NRBC Flagged by Analyzer 0 % (0-5); Platelet Count 277 K/mm3 (150-450); RBC Distribution Width CV 16.0 % (11.6-14.6); RBC Distribution Width SD 54.5 fl (35.1-43.9); Red Blood Count 3.67 M/mm3 (4.6-6.2); White Blood Count 6.1 K/mm3 (4.4-11.0)
--- NOTE | 2024-12-18 15:10 | CT_ITS ---
PROCEDURE: BRAIN/HEAD WITHOUT CONTRAST 12/18/2024 REASON FOR EXAM: DIZZINESS, VISION CHANGES TECHNIQUE: BRAIN/HEAD WITHOUT CONTRAST Coronal and Sagittal reconstruction series were provided. One or more dose reduction techniques were used (e.g., Automated exposure control, adjustment of the mA and/or kV according to patient size, use of iterative reconstruction technique. RADIATION DOSE SUMMARY: CTDlvol: 44 mGy DLP: 880 mGycm COMPARISON: 03/22/2024. FINDINGS: Mild global parenchymal atrophy. Left frontotemporal encephalomalacia. No evidence of acute hemorrhage or infarction. No extra-axial blood or fluid collections. Pansinus mucosal thickening. The mastoid air cells are clear. The calvarial vault and skull base are intact. CT/Brain/Head without Contrast IMPRESSION: No acute intracranial abnormality. Left frontotemporal encephalomalacia. Reading Location: [id number]
[2024-12-18 15:41] LABS: Troponin T High Sensitivity 25 ng/L (<=22)
--- NOTE | 2024-12-18 15:55 | NUR.TO.PHY ---
DR. DURAN NOTIFIED OF LACTATE OF 2.1
[2024-12-18 16:02] LABS: Anion Gap 10 (5-15); BUN 8 mg/dL (4-19); BUN/Creat Ratio 12.5 RATIO (10-20); Calcium,Total 8.5 mg/dL (7.6-11.0); Carbon Dioxide 25.3 mmol/L (21.0-32.0); Chloride 103 mmol/L (98-108); Estimated Creatinine Clearance 90.10 ml/min (50-250); Glucose 90 mg/dL (70-99); Potassium 4.4 mmol/L (3.3-5.1); Pro- Brain NATRIURETIC PEPTIDE 4901 pg/mL (<=1800)
[2024-12-18 16:15] LABS: Mucous, Urine 0 SEEN /hpf (<or=2+)
[2024-12-18 16:19] LABS: Color, Urine Yellow (Yellow); Glucose, Dipstick Normal (Normal); Ketone-Dipstick Negative (Negative); Leukocyte Esterase-Dipstick 500 /ul (Negative); Nitrite-Dipstick Positive (Negative); Occult Blood-Urine Negative /ul (Negative); Protein-Dipstick 30 mg/dl (Negative); Specific Gravity, Urine 1.010 (1.002-1.030); Urine Bilirubin Dipstick Negative (Negative)
[2024-12-18 17:14] LABS: Prothrombin Time (Protime)PT. 39.3 SECONDS (11.7-14.9)
[2024-12-18 17:33] LABS: Red Blood Cells-Urine 0-5 SEEN /hpf (0-5); Squamous Epithelial Cells - UA 0-5 SEEN /hpf (0-5)
[2024-12-18 17:36] LABS: Troponin T High Sens 2 HR 33 ng/L (<=22)
--- NOTE | 2024-12-18 18:18 | PCM.HP.STD ---
[facility] - General General Date of Admission: 12/18/24 Date of Service: 12/18/24 Chief Complaint: Presyncopal symptoms and shortness of breath with exertion HPI Narrative EDDIE KHALIL, is a 79 M who presented to [facility] ED on 12/18/2024 with presyncopal symptoms and shortness of breath with exertion. Patient lives at home with his , has decent functional status at baseline. Medical history significant for mechanical aortic valve replacement in 2001 on warfarin, chronic A-fib, chronic HFpEF, history of CAD with stenting, hypertension and hyperlipidemia. He had the mechanical valve placed at [facility] and has followed with [facility] cardiology in the past for this. Patient was last hospitalized here in May 2023 and there was concern for a vegetation on the mechanical valve at that time. EDGAR fortunately showed no vegetation, normal EF and some valve thickening but no valvular dysfunction. However, patient and note that he has seen [facility] cardiology and had testing done within the past several months and were told that his mechanical valve is failing. He has an appointment with his [facility] doctors to discuss replacement of the mechanical valve in the near future. On further discussion, patient believes he was told that the valve was leaky and this is why he was feeling, but he is not sure. Unfortunately I was not able to view these records in [facility]. In the ED, patient was mildly hypertensive to the 140s systolic, otherwise in rate controlled A-fib with rate in the 60s to 70s and stable on room air at rest. Orthostatic vitals were negative. Chest x-ray notable for mild vascular congestion. CBC and BMP were benign, but he was noted to have an elevated BNP of 4901. Troponin trend 25 > 33 > 22. EKG showed rate controlled A-fib with no ischemic changes. Given his presyncopal symptoms with generalized weakness and concern for heart failure exacerbation, hospitalist was contacted for admission. I saw the patient at bedside in the ED, was present. Patient was fairly fatigued and chronically ill-appearing but otherwise sitting back comfortably in bed, answering questions appropriately, in no acute distress. He denies any shortness of breath at rest but does report shortness of breath with exertion over the past several days. Denies any lower extremity swelling. Denies any UTI symptoms. No other acute concerns at this time. Will be admitted for further management. [facility] Medical History (Updated 12/18/24 @ 21:[address] Jaya Patel, DO) Wears hearing aid Thyroid disease High cholesterol Excessive bleeding Back pain Migraine headache Stroke/cerebrovascular accident History of IBS Gastric reflux Former smoker Sleep apnea Shortness of breath on exertion Leg cramps History of pain when walking History of edema History of echocardiogram History of stress test Cardiology follow-up encounter FH: bilateral hip replacements Home Medications ?Medication ?Instructions ?Recorded ?Last Taken ?Type warfarin 4 mg tablet (Jantoven) 4 mg PO SUTUWETHFRSA blood thinner 04/03/16 01/08/23 History allopurinol 100 mg tablet 100 mg PO DAILYCM gout 04/04/16 12/18/24 History atorvastatin 40 mg tablet 80 mg PO DAILY cholesterol 04/04/16 12/18/24 History ferrous sulfate 325 mg (65 mg 325 mg PO DAILY supplement 04/04/16 12/18/24 History iron) tablet isosorbide mononitrate 30 mg 30 mg PO DAILY chest pain 04/04/16 12/18/24 History tablet,extended release 24 hr levothyroxine 25 mcg tablet 50 mcg PO DAILY thyroid 04/04/16 12/18/24 History metoprolol tartrate 25 mg tablet 25 mg PO DAILY blood pressure 04/04/16 12/18/24 History pantoprazole 40 mg tablet,delayed 40 mg PO BID reflux 04/04/16 12/18/24 History release gabapentin 300 mg capsule 300 mg PO DAILY nerve pain 01/10/20 12/18/24 History tamsulosin 0.4 mg capsule 0.4 mg PO DAILY prostate 07/09/22 12/18/24 History aspirin 81 mg capsule 81 mg PO DAILY heart health 01/10/23 12/18/24 History finasteride 5 mg tablet 5 mg PO DAILY prostate 05/18/23 12/18/24 History warfarin 2 mg tablet (Jantoven) 2 mg PO DAILY blood thinner 05/19/23 12/18/24 History cefdinir 300 mg capsule 300 mg PO BID #10 caps 05/23/23 Unknown Rx furosemide 40 mg tablet (Lasix) 40 mg PO DAILY #30 tabs 05/23/23 Unknown Rx hydrocodone-acetaminophen 5-325mg 1 tab PO Q4H PRN PRN Pain 2 days 02/13/24 Unknown Rx 5mg-325mg #14 TABLETS Allergy/AdvReac Type Severity Reaction Status Date / Time hydrocodone bitartrate (From Allergy Other Verified 03/22/24 15:48 Vicodin) Surgical History History of total right hip replacement History of total left hip replacement History of heart surgery History of cardiac catheterization History of coronary artery stent placement Hx laparoscopic cholecystectomy Hx of aortic valve replacement History of open heart surgery Social History household members: spouse Smoking Status: Former smoker ROS Constitutional Constitutional: Reports fatigue and weakness; Denies chills or fever(s) Eyes Eyes: Denies change in vision Cardiovascular Cardiovascular: Denies chest pain Respiratory/Chest Respiratory/Chest: Reports cough and shortness of breath with exertion; Denies productive cough, shortness of breath at rest or wheezing Gastrointestinal Gastrointestinal: Denies abdominal pain Genitourinary Genitourinary: Denies dysuria Musculoskeletal Musculoskeletal: Denies arthralgias or myalgias Neurologic Neurologic: Denies dizziness, focal weakness, headache(s), numbness or tingling Vital Signs Vital Signs Vital Signs: 12/18/24 14:10 12/18/24 14:28 12/18/24 16:24 Temperature 98.1 F Temperature Source Oral Pulse Rate 60 66 Pulse Rate [Lying] 59 L Pulse Rate [Sitting (for 1 minute prior to obtaining)] 59 L Pulse Rate [Standing (for 1 minute prior to obtaining)] 66 Respiratory Rate 18 16 Blood Pressure 157/67 H 145/63 H Blood Pressure [Lying] 135/53 H Blood Pressure [Sitting (for 1 minute prior to obtaining)] 141/55 H Blood Pressure [Standing (for 1 minute prior to obtaining)] 140/56 H Blood Pressure Mean 97 90 Blood Pressure Mean [Lying] 80 Blood Pressure Mean [Sitting (for 1 minute prior to obtaining)] 83 Blood Pressure Mean [Standing (for 1 minute prior to obtaining)] 84 Pulse Ox 96 96 Oxygen Delivery Method Room Air Room Air 12/18/24 17:00 Temperature Temperature Source Pulse Rate 60 Pulse Rate [Lying] Pulse Rate [Sitting (for 1 minute prior to obtaining)] Pulse Rate [Standing (for 1 minute prior to obtaining)] Respiratory Rate 16 Blood Pressure 143/64 H Blood Pressure [Lying] Blood Pressure [Sitting (for 1 minute prior to obtaining)] Blood Pressure [Standing (for 1 minute prior to obtaining)] Blood Pressure Mean 90 Blood Pressure Mean [Lying] Blood Pressure Mean [Sitting (for 1 minute prior to obtaining)] Blood Pressure Mean [Standing (for 1 minute prior to obtaining)] Pulse Ox 96 Oxygen Delivery Method Room Air Weight Weight: 103.2 kg Body Mass Index (BMI) 32.6 Physical Exam Const alert, oriented x3 and no apparent distress Constitutional Narrative: Elderly male, class I obesity, fatigued and somewhat chronically ill-appearing, otherwise sitting back fairly comfortably in bed, answering questions appropriately, in no acute distress. General Appearance: cooperative and comfortable HEENT normocephalic, head/scalp atraumatic, hearing grossly normal bilaterally, nasal mucous membranes and turbinates normal and moist oral mucous membranes Eyes PERRL, EOMs intact bilaterally and conjunctivae normal Neck full ROM Chest inspection of chest normal Resp normal respiratory effort and no use of accessory muscles Resp Narrative: Breathing comfortably on room air at rest. Diminished breath sounds in bilateral lung bases with mild crackles noted. No wheezing noted. Cardio peripheral pulses 2+ throughout Cardio Narrative: A-fib, rate controlled. GI normal to inspection, nondistended, normoactive bowel sounds, soft to palpation, non-tender and non-distended Back/Spine normal ROM Extremity normal to inspection, full ROM and no pedal edema Skin no rashes or lesions noted Psych mental status grossly normal Results Lab / Micro Data 12/18/24 14:55 12/18/24 14:55 Labs: Laboratory Results - last 24 hr 12/18/24 14:55: WBC 6.1, RBC 3.67 L, Hgb 10.7 L, Hct 33.7 L, MCV 91.8, MCH 29.2, MCHC 31.8 L, RDW Std Deviation 54.5 H, RDW Coeff of Clement 16.0 H, Plt Count 277, MPV 10.3, Immature Gran % (Auto) 1.300 H, Neut % (Auto) 71.5 H, Lymph % (Auto) 14.0 L, [place] % (Auto) 8.9, Eos % (Auto) 3.8, Baso % (Auto) 0.5, Absolute Neuts (auto) 4.3, Absolute Lymphs (auto) 0.85, Nucleated RBC % 0, PT 39.3 H, INR 3.9, Sodium 139, Potassium 4.4, Chloride 103, Carbon Dioxide 25.3, Anion Gap 10, BUN 8, Creatinine 0.68 L, Estim Creat Clear Calc 90.10, Est GFR (MDRD) Non-Af 95, BUN/Creatinine Ratio 12.5, Glucose 90, Lactic Acid 2.1 H*, Calcium 8.5, Troponin T High Sens 25 H, NT pro BNP II 4901 H 12/18/24 16:10: Urine Color Yellow, Urine Clarity Sl. Cloudy, Urine pH 6.5, Ur Specific [place] 1.010, Urine Protein 30 H, Urine Glucose (UA) Normal, Urine Ketones Negative, Urine Occult Blood Negative, Urine Nitrite Positive H, Urine Bilirubin Negative, Urine Urobilinogen 4 H, Ur Leukocyte Esterase 500 H, Urine RBC 0-5 SEEN, Urine WBC 5-10 SEEN, Ur Squamous Epith Cells 0-5 SEEN, Urine Bacteria 1+, Urine Mucus 0 SEEN 12/18/24 16:45: Troponin T Hi Sens 2 Hr 33 H Micro: Microbiology 12/18/24 14:55 Mucosa - Nose SARS-CoV-2, Influenza & RSV (PCR) - Final Imaging Radiology Impression Chest X-Ray 12/18/24 15:05 IMPRESSION: Pulmonary findings as above. Reading Location: [facility] Brain CT 12/18/24 15:10 IMPRESSION: No acute intracranial abnormality. Left frontotemporal encephalomalacia. Reading Location: [id number] Assessment & Plan Assessment/Plan (1) Acute exacerbation of chronic heart failure: (2) Weakness: PLAN: Plan Patient is a 79-year-old male who presented to [facility] ED on 12/18/2024 with presyncopal symptoms and shortness of breath with exertion. 1. Mild acute on chronic CHF exacerbation suspected secondary to worsening function of mechanical aortic valve replacement, chronic A-fib on warfarin with mild supratherapeutic INR ? Admit under observation status to PCU. Patient stable on room air in the ED but does have elevated BNP, vascular congestion and shortness of breath on exertion that are consistent with mild CHF exacerbation. Had mechanical AVR placed at [facility] in 2001. Has been following with [facility] for this and was told recently that he has a failing valve that will require surgical valvular replacement soon. Unable to find his records so records have been requested. Echo ordered here. Will treat with IV Lasix 40 mg twice daily for now, monitor daily BMP and urine output. INR 3.9, goal 2.5-3.5 so we will hold home warfarin until INR returns to goal. Suspect patient will be okay for discharge home soon and notably he has a follow-up appointment with [facility] on Saturday 12/23 for the discussion of valve replacement. 2. Acute on chronic debility ? PT/OT/case management consulted. Patient lives at home with his and reports worsening generalized weakness over the past several days, though he does state he is still been able to complete his ADLs. Appreciate therapy recommendations. 3. Concern for UTI ? UA showed positive nitrates, 500 leukocyte esterase, 1+ bacteria. Patient denies UTI symptoms. However, given UA findings empirically treat with IV ceftriaxone for now. Follow-up urine culture. 4. Elevated troponins ? Troponin trend 25 > 33 > 22. EKG with chronic A-fib, no ischemic changes. Echo ordered as above. No further cardiac workup aside from echo required at this time. Chronic medical conditions: ? Class I obesity: BMI 31.5 on admit. Complicates hospital course and care. ? History of CAD with stenting, hypertension, hyperlipidemia: Continue home aspirin, statin, nitrate and Lopressor. Treated with IV Lasix as above. ? GERD: Continue home PPI. ? Hypothyroidism: Continue home Synthroid. ? BPH with obstructive symptoms: Continue home finasteride and Flomax. ? Neuropathy: Continue home gabapentin. ? History of gout: Continue home allopurinol. DVT prophylaxis: Holding warfarin for supratherapeutic INR as above CODE STATUS: Full code, verified Expected disposition: TBD Total clinical time spent by myself addressing the patient's medical issues, reviewing all the data, and collaborating with patient's care team: 75 minutes. Charges/Coding Visit Charges Inpatient E&M: 15975 Init Hosp L3
--- NOTE | 2024-12-18 18:21 | ECHOCS_ITS ---
Reason For Study Reason For Study: CHF Procedure This was a 2D Doppler, Color Flow transthoracic echocardiogram. The study was technically difficult. Contrast injection was performed. Exam performed portable in patient room. Left Ventricle Normal LV size. Left ventricular systolic function is normal. The left ventricular ejection fraction is 60 %. No regional wall motion abnormalities noted. Right Ventricle Normal RV size. Normal systolic function. Atria The left atrium is moderately enlarged. The right atrium is moderately enlarged. Mitral Valve Normal mitral valve. Tricuspid Valve Normal tricuspid valve. Aortic Valve Peak aortic valve gradient 44 mmHg. Mean aortic valve gradient 22 mmHg. Stable appearing mechanical aortic valve apparatus. Pulmonic Valve Normal pulmonic valve. Great Vessels Normal aortic root. The pulmonary artery is normal size. Inferior vena cava collapse with respiration. Pericardium/Pleural No pericardial effusion. Medication Diluted definity 1ml given slow IV push to enhance endocardial definition. MMode/2D Measurements & Calculations LVIDd: 4.6 cm IVSd: 1.1 cm LAV(MOD-sp4): 104.7 ml LVIDs: 2.9 cm LVPWd: 1.4 cm FS: 36.2 % LVAd ap4: 38.4 cm2 SV(MOD-sp4): 78.5 ml SV(sp4-el): 83.8 ml LVLd ap4: 8.9 cm SI(MOD-sp4): 36.2 ml/m2 EDV(MOD-sp4): 138.7 ml EDV(sp4-el): 141.2 ml LVAs ap4: 23.3 cm2 LVLs ap4: 8.0 cm ESV(MOD-sp4): 60.2 ml ESV(sp4-el): 57.4 ml EF(MOD-sp4): 56.6 % EF(sp4-el): 59.4 % LA A4 area: 29.8 cm2 RA A4 area: 26.8 cm2 Doppler Measurements & Calculations MV E max elza: 143.6 cm/sec Ao V2 max: 334.0 cm/sec PA V2 max: 113.4 cm/sec Ao max P.7 mmHg PA V2 mean: 78.8 cm/sec Ao V2 mean: 222.5 cm/sec Ao mean P.5 mmHg Ao V2 VTI: 73.9 cm ECHO/Echo Complete W/ Contrast Interpretation Summary Normal LV size. Left ventricular systolic function is normal. The left ventricular ejection fraction is 60 %. Stable appearing mechanical aortic valve apparatus. Mean aortic valve gradient 22 mmHg. The left atrium is moderately enlarged. The right atrium is moderately enlarged. Contrast injection was performed. Ordering Physician: Jaya Patel Referring Physician: [facility] Performed By: Linda Chavez RCS
[2024-12-18 19:03] LABS: Reflex Lactate? Y
[2024-12-18 19:43] LABS: Troponin T High Sens 4 HR 22 ng/L (<=22)
--- OUTSIDE RECORDS SUMMARY | 2024-12-18 20:08 | XMS RPT_ITS | CCD ---
Author Organization [facility] Care Team Providers Care Bobbin Cleaner Name Role Phone Pa Del Cid (Hist) Primary Care Provider Moreno Bob Primary Care Provider [facility] Primary [place] Phys[place] Primary Care [place] Referring Provider Unavailable Dr. Iker Tom Attending Provider [phone] Dr. Iker Tom Other Provider [place] Primary Care Provider Unavailchristine e Dr. Leighton Drake Emergency Provider [phone] Dr. Desmond Owen Admit Provider UnavailDr. Desmond Haider Other Provider Unavailchristine e Dr. Constantino Albarado Attending Provider Dr. Constantino Albarado Other Provider Dr. Chester Montano Attending Provider Dr. Jaya Patel Attending Provider Dr. Jaya Patel Other Provider Dr. Chester Montano Other Provider Dr. Desmond Castaneda Attending Provider Unavailable Dr. Desmond Castaneda Other Provider Unavailable Dr. Moreno Bob Attending Provider [facility] Primary Care Physician Chester Montano Referring Unavailable Chester Montano Attending Unavailable [facility] [place] Primary Care Unavailable Desmond Owen Consulting Unavailable Desmond Owen Admitting Unavailable Constantino Albarado Consulting Unavailable Chester Montano Consulting Unavailable Jaya Patel Consulting Unavailable Arian Rodgers Attending [place] [facility] [place] [facility] Unavailable Anup Guerrero Attending [place] [facility] [place] [facility] Unavailable Jayesh Mccarthy Attending [facility] [place] [facility] Unavailable Desmond Castaneda Attending Unavailable Desmond Owen Admitting [place] [facility] [place] [facility] Unavailable Desmond Owen Consulting Unavailable Constantino Albarado Consulting Unavailable Chester Montano Consulting Unavailable Jaya Patel Consulting Unavailable Jaya Patel Attending Unavailable Lisbeth, [place] Referring Unavailable LisbethPortia chavesl Attending [place] [facility] [place] Primary [facility] Unavailable Aleksandr Montanok Referring Unavailable Aleksandr Montanok Attending Unavailable [facility] [place] Primary [facility] Unavailable Constantino Albarado Attending Unavailable Leighton Drake Referring Unavailable Desmond Owen Attending Unavailable Desmond Castaneda Attending Unavailable Desmond Castaneda Consulting Unavailable RORY GONZALES DO Attending Unavailable [facility] Primary Care Unavailable Unavailable Primary Care Provider Unavailchristine Ramirez MD, Alexander Unavailable Leanna Solares APRN Primary Care Provider [phone] Allergies Allergy Classification Reported Allergen(s) Allergy Type Date of Onset Reaction(s) Facility (6 sources) Acetaminophen / HYDROcodone; Translations: [acetaminophen-hyd rocodone] Drug Allergy 6 Shortness of Breath [facility] (2 sources) HYDROcodone; Translations: [hydrocodone bitartrate] Drug Allergy 0 Other [facility] Medications Current Medications Medication Drug Class(es) Dates Sig (Normalized) Sig (Original) acetaminophen 325 mg oral tablet (3 sources) Start: 02-25-2014 Tylenol 325 mg oral tablet Dose : 650 mg = 2 tab(s), Oral, q4h, PRN as needed for pain, 0 Refill(s) Start Date: 02/25/14 Status: Ordered allopurinol 100 mg oral tablet (6 sources) Xanthine Oxidase Inhibitor Start: 02-25-2014 allopurinol 100 mg oral tablet Dose : 100 mg = 1 tab(s), Oral, qDay, 0 Refill(s) Start Date: 02/25/14 Status: Ordered ascorbic acid 250 mg oral tablet (2 sources) Vitamin C Start: 02-25-2014 Vitamin C 250 mg oral tablet Dose : 250 mg = 1 tab(s), Oral, TID, 0 Refill(s) Start Date: 02/25/14 Status: Ordered aspirin 81 mg oral tablet (5 sources) Platelet Aggregation Inhibitor, Nonsteroidal Anti-inflammatory Drug Start: 01-10-2023 take 81 mg by mouth once daily Aspirin Active 81 MG PO DAILY January 09, 2023 11:00pm Start: 02-25-2014 aspirin 81 mg oral delayed release tablet Dose : 81 mg = 1 tab(s), Oral, qDay, 0 Refill(s) Start Date: 02/25/14 Status: Ordered Start: 02-25-2014 aspirin 81 mg oral delayed release tablet Dose : 81 mg = 1 tab(s), Oral, qDay, 0 Refill(s) Start Date: 02/25/14 Status: Ordered atorvastatin 40 mg oral tablet (6 sources) HMG-CoA Reductase Inhibitor Start: 04-04-2016 take 80 mg by mouth once daily Atorvastatin Active 80 MG PO DAILY April 04, 2016 12:00am Start: 02-25-2014 Lipitor 80 mg oral tablet Dose : 40 mg = 0.5 tab(s), Oral, BID, 0 Refill(s) Start Date: 02/25/14 Status: Ordered calcium carbonate 550 mg / magnesium hydroxide 110 mg chewable tablet (1 source) Start: 02-25-2014 take 1 tablet by mouth every hour as needed Rolaids 550 mg-110 mg oral tablet, chewable Dose = 2 tab(s), Oral, q1h, PRN as needed to control stomach acid, # 30 tab(s), 0 Refill(s) Start Date: 02/25/14 Status: Ordered cefdinir 300 mg oral capsule (1 source) Cephalosporin Antibacterial Start: 05-23-2023 take 300 mg by mouth twice daily Cefdinir Active 300 MG PO TWICE A DAY May 23, 2023 12:00am cephalexin 500 mg oral capsule (2 sources) Cephalosporin Antibacterial Start: 04-22-2021 End: 05-02-2021 cephalexin 500 mg oral capsule Dose : 500 mg = 1 cap(s), Oral, QID, X 10 day(s), # 40 cap(s), 0 Refill(s), 05/02/21 15:41:00 EST, Open multiple fractures of hand bones, 116 Start Date: 04/22/21 Stop Date: 05/02/21 Status: Ordered cholecalciferol 0.025 mg oral tablet (1 source) Vitamin D Start: 04-03-2016 take 1 tablet by mouth once daily Cholecalciferol (Vitamin D3) (Vitamin D) 1,000 UNIT tablet Active 1000 UNIT PO DAILY April 03, 2016 1:00am COMPOUNDED PRESCRIPTION (2 sources) Start: 11-28-2005 COMPOUNDED PRESCRIPTION Cholesterol Med - Pt can't remember the name of it 0 11/28/2005 Active dihydroxyaluminum sodium carbonate (2 sources) Start: 02-25-2014 take 1 tablet by mouth every hour as needed Rolaids 550 mg-110 mg oral tablet, chewable Dose = 2 tab(s), Oral, q1h, PRN as needed to control stomach acid, # 30 tab(s), 0 Refill(s) Start Date: 02/25/14 Status: Ordered docusate sodium 100 mg oral capsule (3 sources) Start: 02-25-2014 Colace 100 mg oral capsule Dose : 100 mg = 1 cap(s), Oral, BID, PRN as needed for constipation, 0 Refill(s) Start Date: 02/25/14 Status: Ordered ferrous sulfate 325 mg oral tablet (6 sources) Start: 02-25-2014 take 325 mg by mouth once daily Ferrous Sulfate Active 325 MG PO DAILY April 04, 2016 12:00am Start: 02-25-2014 take 325 mg by mouth three times daily at mealtime Ferrous Sulfate Active 325 MG PO 3 TIMES DAILY WITH MEALS April 04, 2016 1:00am finasteride 5 mg oral tablet (1 source) 5-alpha Reductase Inhibitor Start: 05-18-2023 take 5 mg by mouth once daily Finasteride Active 5 MG PO DAILY May 18, 2023 12:00am furosemide 40 mg oral tablet (2 sources) Loop Diuretic Start: 05-23-2023 take 1 tablet by mouth once daily Furosemide (Lasix) 40 mg tablet Active 40 MG PO DAILY May 23, 2023 12:00am Start: 07-10-2022 take 1 tablet by ai th once daily Furosemide (Lasix) 20 mg tablet Active 20 MG PO DAILY July 10, 2022 1:00am gabapentin 300 mg oral capsule (3 sources) Anti-epileptic Agent Start: 01-10-2020 take 300 mg by mouth once daily Gabapentin Active 300 MG PO DAILY January 09, 2020 11:00pm Start: 01-10-2020 take 300 mg by mouth twice daily Gabapentin Active 300 MG PO TWICE A DAY January 10, 2020 12:00am hydroCHLOROthiazide 12.5 mg / lisinopril 10 mg oral tablet (2 sources) Thiazide Diuretic, Angiotensin Converting Enzyme Inhibitor Start: 03-01-2007 take 1 tablet by mouth once daily lisinopril-hydrochlorothiazide 10-12.5 mg ORAL Tab Take one(1) tablet daily. 30 11 03/01/2007 Active 24 hr isosorbide mononitrate 30 mg extended release oral tablet (3 sources) Nitrate Vasodilator Start: 04-04-2016 take 30 mg by mouth once daily Isosorbide Mononitrate Active 30 MG PO DAILY April 04, 2016 12:00am levothyroxine sodium 0.025 mg oral tablet (8 sources) l-Thyroxine Start: 04-04-2016 take 50 ug by mouth once daily Levothyroxine Active 50 MCG PO DAILY April 04, 2016 12:00am Start: 02-25-2014 Synthroid 25 m cg (0.025 mg) oral tablet Dose : 25 mcg = 1 tab(s), Oral, qDayAC, 0 Refill(s) Start Date: 02/25/14 Status: Ordered Start: 03-26-2007 levothyroxine sodium(SYNTHROID 25 MCG TAB) Take one(1) tablet daily.for 2 weeks and then 2 tabas daily 60 2 03/26/2007 Active metoprolol tartrate 25 mg oral tablet (8 sources) beta-Adrenergic Yusra Start: 04-04-2016 take 12.5 mg by mouth twice daily Metoprolol Tartrate Active 12.5 MG PO TWICE A DAY April 04, 2016 1:00am Start: 02-25-2014 metoprolol tar trate 25 mg oral tablet Dose : 25 mg = 1 tab(s), Oral, BID, 0 Refill(s) Start Date: 02/25/14 Status: Ordered Start: 11-28-2005 TOPROL XL 100 MG 24 HR TAB Take one(1) tablet daily. 0 11/28/2005 Active nortriptyline 25 mg oral capsule (3 sources) Tricyclic Antidepressant Start: 02-25-2014 nortriptyline 25 mg oral capsule Dose : 25 mg = 1 cap(s), Oral, qHS, 0 Refill(s) Start Date: 02/25/14 Status: Ordered pantoprazole 40 mg delayed release oral tablet (6 sources) Proton Pump Inhibitor Start: 02-25-2014 Protonix 40 mg oral enteric coated tablet Dose : 40 mg = 1 tab(s), Oral, qDayAC, 0 Refill(s) Start Date: 02/25/14 Status: Ordered raNITIdine 300 mg oral tablet (3 sources) Histamine-2 Receptor Antagonist Start: 02-25-2014 ranitidine 300 mg oral tablet (NF) Dose : 300 mg = 1 tab(s), Oral, qHS, # 30 tab(s), 0 Refill(s) Start Date: 02/25/14 Status: Ordered tamsulosin hydrochloride 0.4 mg oral capsule (3 sources) alpha-Adrenergic Yusra Start: 07-09-2022 take 0.4 mg by mouth once daily Tamsulosin Active 0.4 MG PO DAILY July 09, 2022 12:00am vitamin b12 1 mg oral tablet (3 sources) Vitamin B12 Start: 02-25-2014 take 1000 ug by mouth once daily Cyanocobalamin (Vitamin B-12) Active 1000 MCG PO DAILY April 04, 2016 1:00am Vitamin B12 1000 mcg oral tablet (1 source) Start: 02-25-2014 Vitamin B12 1000 mcg oral tablet Dose : 1,000 mcg = 1 tab(s), Oral, qDay, 0 Refill(s) Start Date: 02/25/14 Status: Ordered Vitamin C 250 mg oral tablet (1 source) Start: 02-25-2014 Vitamin C 250 mg oral tablet Dose : 250 mg = 1 tab(s), Oral, TID, 0 Refill(s) Start Date: 02/25/14 Status: Ordered Vitamin D2 50,000 intl units capsule (3 sources) Start: 02-25-2014 Vitamin D2 50,000 intl units capsule Dose : 50,000 unit(s) = 1 cap(s), Oral, Ori, 0 Refill(s) Start Date: 02/25/14 Status: Ordered warfarin sodium 2 mg oral tablet (11 sources) Vitamin K Antagonist Start: 04-03-2016 Warfarin (Coumadin (Pbkc)) 4 MG tablet Active 8 MG PO SUTUWETHFRSA April 03, 2016 1:00am Start: 02-25-2014 take 1 tablet by ai once daily Warfarin (Jantoven) 2 mg tablet Active 2 MG PO DAILY May 19, 2023 12:00am Start: 11-28-2005 COUMADIN 4 MG TAB Take one (1) tablet every day. 0 11/28/2005 Active Completed/Discontinued Medications Medication Drug Class(es) Dates Sig (Normalized) Sig (Original) acetaminophen 325 mg / oxyCODONE hydrochloride 5 mg oral tablet (7 sources) Opioid Agonist Start: 04-22-2021 End: 04-27-2021 take 1 tablet by mouth every four hours as needed for pain Percocet 5 mg-325 mg oral tablet Dose = 1 tab(s), Oral, q4h, PRN for pain, # 15 tab(s), 0 Refill(s), Open multiple fractures of hand bones, 116 Start Date: 04/22/21 Stop Date: 04/27/21 Status: Ordered Start: 01-10-2020 End: 01-13-2020 take 1 tablet by mouth every six hours as needed Oxycodone-Acetaminophen Discontinued 1 TABLET PO EVERY 6 HOURS NEEDED 04 02January 10, 2020 January 12, 2020 11:02pm Start: 04-03-2016 take 1 tablet by ai th every four hours as needed Oxycodone-Acetaminophen Active 1 - 2 TABLET PO EVERY 4 HOURS NEEDED April 03, 2016 1:00am sucralfate 1000 mg oral tablet (3 sources) Aluminum Complex Start: 03-02-2018 End: 04-01-2018 Carafate 1 g oral tablet Dose : 1 g = 1 tab(s), Oral, achs, # 120 tab(s), 0 Refill(s) Start Date: 03/02/18 Stop Date: 04/01/18 Status: Ordered Problems Active Problems Problem Classification Problem Date Documented Da te Episodic/Chronic Abdominal hernia (3 sources) Hiatal hernia; Translations: [Diaphragmatic hernia without obstruction or gangrene] 01-10-2020 Episodic Acute and unspecified renal failure (3 sources) Acute renal failure syndrome; Translations: [Acute kidney failure, unspecified] 01-10-2020 Episodic Congestive heart failure; nonhypertensive (4 sources) Acute exacerbation of chronic congestive heart failure; Translations: [Heart failure, unspecified] Onset: 05-30-2023 05-19-2023 Chronic Coronary atherosclerosis and other heart disease (3 sources) Coronary arteriosclerosis; Translations: [Atherosclerotic heart disease of [place] coronary artery without angina pectoris] 01-10-2020 Chronic Deficiency and other anemia (3 sources) Anemia; Translations: [Anemia, unspecified] 01-10-2020 Episodic Diseases of white blood cells (3 sources) Leukocytosis; Translations: [Elevated white blood cell count, unspecified] Onset: 05-30-2023 05-20-2023 Chronic Disorders of lipid metabolism (3 sources) Pure hypercholesterolemia; Translations: [Pure hypercholesterolemia, unspecified] Onset: 11-28-2005 11-28-2005 Chronic Disorders of teeth and jaw (3 sources) Dental abscess; Translations: [Periapical abscess without sinus] 01-11-2020 Episodic Diverticulosis and diverticulitis (3 sources) Diverticula of intestine; Translations: [Diverticulosis of intestine, part unspecified, without perforation or abscess without bleeding] 01-10-2020 Chronic E Codes: Fall (1 source) Fall; Translations: [Unspecified fall, initial encounter] Onset: 02-10-2024 Episodic Essential hypertension (18 sources) Essential hypertension; Translations: [Hypertensive disorder] Onset: 11-28-2005 11-28-2005 Chronic Fracture of upper limb (1 source) Closed fracture proximal humerus, greater tuberosity; Translations: [Displaced fracture of greater tuberosity of unspecified humerus, initial encounter for closed fracture] Onset: 02-10-2024 Episodic Heart valve disorders (20 sources) Aortic valve disorder; Translations: [History of mechanical aortic valve replacement] Onset: 11-28-2005 11-28-2005 Chronic Leukemias (12 sources) Chronic myeloid leukemia; Translations: [Chronic myeloid leukemia, BCR/ABL-positive, not having achieved remission] 12-12-2024 Chronic Malaise and fatigue (1 source) Right hemiparesis; Translations: [Weakness] 12-12-2024 Episodic Other and ill-defined cerebrovascular disease (1 source) Acute ill-defined cerebrovascular disease; Translations: [Acute, but ill-defined, cerebrovascular disease] Onset: 08-01-2006 08-01-2006 Chronic Other and ill-defined cerebrovascular disease (2 sources) Cerebrovascular disease; Translations: [Other cerebrovascular disease] Onset: 08-01-2006 2024 Chronic Other circulatory disease (12 sources) History of cerebrovascular accident; Translations: [Personal history of transient ischemic attack (TIA), and cerebral infarction without residual deficits] 12-12-2024 Episodic Other endocrine disorders (3 sources) Adrenal mass; Translations: [Other specified disorders of adrenal gland] 01-10-2020 Chronic Other gastrointestinal disorders (2 sources) Diarrhea; Translations: [Diarrhea, unspecified] 12-29-2022 Episodic Other injuries and conditions due to external causes (1 source) Multiple injuries; Translations: [Unspecified multiple injuries, initial encounter] Onset: 04-22-2021 Episodic Other injuries and conditions due to external causes (1 source) Unspecified injury of head, initial encounter; Translations: [Unspecified injury of head, initial encounter] Onset: 04-20-2024 Episodic Other lower respiratory disease (3 sources) Nodule of lung; Translations: [Solitary pulmonary nodule] 01-10-2020 Episodic Other lower respiratory disease (3 sources) Dyspnea; Translations: [Dyspnea, unspecified] 07-10-2022 Episodic Other lower respiratory disease (1 source) Hypoxia; Translations: [Hypoxemia] 05-20-2023 Episodic Other nutritional; endocrine; and metabolic disorders (3 sources) Obesity; Translations: [Obesity, unspecified] Onset: 11-28-2005 11-28-2005 Chronic Other nutritional; endocrine; and metabolic disorders (3 sources) Morbid obesity; Translations: [Morbid (severe) obesity due to excess calories] 01-10-2020 Chronic Other nutritional; endocrine; and metabolic disorders (3 sources) Body mass index 30+ - obesity; Translations: [Obesity, unspecified] 04-07-2016 Chronic Paralysis (11 sources) Right hemiparesis 12-12-2024 Chronic Kristi-; endo-; and myocarditis; cardiomyopathy (except that caused by tuberculosis or sexually transmitted disease) (3 sources) Heart valve disorder; Translations: [Endocarditis, valve unspecified] 01-10-2020 Chronic Kristi-; endo-; and myocarditis; cardiomyopathy (except that caused by tuberculosis or sexually transmitted disease) (1 source) Aortic valve vegetations; Translations: [Acute and subacute infective endocarditis] 05-20-2023 Episodic Superficial injury; contusion (7 sources) Hematoma of abdominal wall; Translations: [Contusion of abdominal wall, initial encounter] Onset: 03-06-2024 01-10-2020 Episodic Thyroid disorders (20 sources) Hypothyroidism; Translations: [Hypothyroidism, unspecified] Onset: 08-24-2007 08-24-2007 Chronic Unclassified (1 source) Accident due to mechanical fall without injury (event) 02-10-2024 Unclassified (1 source) Fracture of greater tuberosity of humerus 02-10-2024 Unclassified (11 sources) Patient encounter status 12-12-2024 Viral infection (3 sources) Viral disease; Translations: [Viral infection, unspecified] 07-10-2022 Episodic Past or Other Problems Problem Classification Problem Date Documented Da te Episodic/Chronic Other aftercare (9 sources) Long-term current use of anticoagulant; Translations: [[facility] (current) use of anticoagulants] Onset: 11-28-2005 11-28-2005 Episodic Other gastrointestinal disorders (2 sources) Diarrhea, unspecified; Translations: [Diarrhea] Onset: 11-15-2023 12-29-2022 Episodic Other lower respiratory disease (2 sources) Hypoxemia; Translations: [Hypoxemia] Onset: 05-30-2023 05-23-2023 Episodic Pancreatic disorders (not diabetes) (3 sources) Mass of pancreas; Translations: [Other specified diseases of pancreas] Onset: 05-30-2023 05-19-2023 Episodic Pneumonia (except that caused by tuberculosis or sexually transmitted disease) (3 sources) Pneumonia; Translations: [Pneumonia, unspecified organism] Onset: 05-30-2023 05-19-2023 Episodic Spondylosis; intervertebral disc disorders; other back problems (3 sources) Low back pain; Translations: [Lumbago] Onset: 02-24-2006 02-24-2006 Episodic Results Test Name Value Interpretation Reference Range Facility [facility] 11-18-2024 [facility] Telephone ([facility]) -- JUAQUIN KHALIL ([id number]) 1945 M Date Time Provider Department 11/18/24 ALEXANDER RAMIREZ [facility] During your visit today, we recorded the following information about you: Joann Parikh 11/28/2024 8:53 AM Signed Referral was received on 11/18, spoke with patient and spouse to get insurance card, images and reports. Waiting for images. Joann Isidro 11/28/2024 9:47 AM Signed Re faxed the request for the images and the ECHO report for 01/19/24. Per Christine, the PACs system is down and they do not have an expected date of when it will be back up. Fax reports - [phone] Images - [phone] Joann Parikh [facility] 12/04/2024 1:23 PM Signed 12/04/24 - images received Joann Parikh 12/09/2024 10:44 AM Signed LOCAL PATIENT Received Call from Self Juaquin Khalil is being referred to Alexander Ramirez M.D. by No referring provider defined for this encounter. Phone: N/A Fax: Patient diagnosis/Reason for consult: Aortic valve surgery per patient. Referral triage process explained: Yes Patient will receive a call from Cardiac NPM after triage review with surgeon to discuss any additional testing and/or consults that will be scheduled. Pt will then receive a call from our scheduling office for scheduling. Please call pt at [phone]. Patient Registration: Registration complete/updated: yes Insurance card(s) scanned in [facility] with in the past year: Yes: Date: 11/29/24 Pt's Arzeda is inactive. Ok to communicate to pt via Arzeda not asked Medical Records: Records in [facility] (internal [facility] records): No Imaging in [facility] (internal [facility] records): No Care Everywhere - queried yes, downloaded N/A Linked Outside Organizations (list): [place] [facility] OSH Records Requested: yes Date: 12/04/24 Outside Hospital(s) requested records from: [facility] Received: yes Uploaded: Yes. Waiting on additional records: No. Missing (list): N/A OSH Radiology Imaging Requested: no Date: N/A Outside Hospital(s) requested imaging from: [place] [facility]. Imaging will be received via Electronic Transfer Received: yes Imaging uploaded: Yes via Electronic Transfer Waiting on additional: No. Missing (list): N/A Additional providers added to Care Teams: Yes Additional Notes/Comments: Images uploaded, routed to NPM. Enct routed to: No Aicha Dean RN 12/10/2024 8:52 AM Signed NPM reviewed VASILIY Holly Ciara M, RN 12/12/2024 8:40 AM Signed Day 1 Cards, CTA, Echo, EKG, Labs, Mapping, Heme, Head CT, carotids Day [address] Ramirez (Mapping, CTA can be done before if can't get Day1) Please call to schedule [email or web address] Called patient to inform them that Dr. Ramirez reviewed information and is recommending in person testing and eval. Patient was informed of the need for further testing. 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] Right sided weakness [R53.1] H/O: stroke [Z86.73] Chronic myeloid leukemia (HCC) [C92.10] Unspecified hypothyroidism [E03.9] Order(s):CONSULT TO CARDIOLOGY [9004] Order #: [id number]: 1 FUTURE CARDIOTHORACIC PREOP EVALUATION [] Order #: [id number]: 1 FUTURE LIPOPROTEIN (A) [SQLPA] Order #: [id number] FUTURE COMPREHENSIVE METABOLIC PANEL [SQCMP] Order #: [id number] FUTURE LACTATE DEHYDROGENASE [SQLD6] Order #: [id number] FUTURE COMPLETE BLOOD COUNT AND DIFFERENTIAL [SQCBCDIF] Order #: [id number] FUTURE URINALYSIS, DIPSTICK ONLY [SQUA] Order #: [id number] FUTURE TYPE AND SCREEN,30 DAY [VRMMVT10] Order #: [id number] FUTURE PROTHROMBIN TIME [SQPT] Order #: [id number] FUTURE ACTIVATED PARTIAL THROMBOPLASTIN TIME [SQPTT] Order #: [id number] FUTURE CONFIRM BLOOD TYPE [SQCONABO] Order #: [id number] FUTURE ECG COMPLETE [ECG01] Order #: [id number] FUTURE ECHO [784026] Order #: [id number]: 1 FUTURE US MAMMARY ARTERY [facility] [[id number]] Order #: [id number] FUTURE US LEG VEIN MAP [facility] [] Order #: [id number] FUTURE US CAROTID ARTERIES [facility] [[id number]] Order #: [id number] FUTURE CTA CHEST (GATED) W IVCON [2108848] Order #: [id number] FUTURE CREATININE BLD [SQCRET] Order #: [id number] FUTURE CONSULT TO HEMATOLOGY/ONCOLOGY [19990501] Order #: [id number]: [address] BRAIN WO IVCON [7598422] Order #: [id number] (more content not included)... Normal [facility] JUAQUIN KHALIL ([id number]) 1945 M Date Time Provider Department 11/15/24 CARDIAC SURGEON - [facility]PEC[facility]IED[facility] During your visit today, we recorded the following information about you: Celis Reema 11/15/2024 12:48 PM Signed Spk w/Mrs. Khalil. She stated [facility], [facility], they are authorizing pt to come to [facility]. I explained they need to send us the Auth number and form along with records and imaging. She has nothing. I gave pt my phone and fax number for [facility] to [facility]. Pt thanked me and call ended. Allergies As of Date: 11/15/2024 Noted Allergy Reaction VICODIN (HYDROCODONE-ACETAMINOPHE* 11/28/2005 12 - Shortness of Breath Date Reviewed: 08/24/2007 Reviewed by: Elizabeth Larsen Lpn - Reviewed Prescriptions as of 11/15/2024 - levothyroxine sodium(SYNTHROID 25 MCG TAB) Take one(1) tablet daily.for 2 weeks and then 2 tabas daily - lisinopril-hydrochlorothia zide 10-12.5 mg ORAL Tab Take one(1) tablet daily. - TOPROL XL 100 MG 24 HR TAB Take one(1) tablet daily. - COUMADIN 4 MG TAB Take one (1) tablet every day. - COMPOUNDED PRESCRIPTION Cholesterol Med - Pt can't remember the name of it Problem List As Of Date 11/15/2024 Noted Resolved AORTIC VALVE DISORDER [I35.9] 11/28/2005 OBESITY NOS [E66.9] 11/28/2005 PURE HYPERCHOLESTEROLEM [E78.00] 11/28/2005 [facility]CARE SEN[facility] CARE ANTICOAG USE [Z79.01] 11/28/2005 HYPERTENSION NOS [I10] 11/28/2005 LUMBAGO [M54.50] 02/24/2006 CVA [I67.89] 08/01/2006 HYPOTHYROIDISM NOS [E03.9] 08/24/2007 Encounter Status:Closed by REEMA CELIS on 11/15/24 Normal [facility] Brain/Head without Contrasto n 03-22-2024 Brain/Head without Contrast [facility] Imaging Services [address] [place] [address] [id number] Brain/Head without Contrast MR#: [id number] Acct: [id number] Name: JUAQUIN KHALIL Rep #: [id number] : 1945 78 From: Kali Nails DO PCP: [facility] Status: REG ER Study: Brain/Head without Contrast Date of Exam: 03/02 06/24 Exam# [id number] Ordering Dr: Arian Rodgers DO [id number] STUDY: CT BRAIN WITHOUT CONTRAST REASON FOR EXAM: Male, 78 years old. Injury/Pain RADIATION DOSAGE (If Supplied By Facility): CTDIvol = ( 44.99 ) mGy, DLP = ( 829.85 ) mGycm TECHNIQUE: Transaxial CT imaging of the brain was performed without administration of intravenous contrast material. Individualized dose optimization techniques were used for this CT. COMPARISON: No relevant priors. FINDINGS: Normal soft tissue structures. Normal calvarium. Normal size ventricles and extra-axial spaces for the patient''s age. Left frontal encephalomalacia. Normal white matter tracts of the cerebral hemispheres. Normal basal ganglia and thalami. Normal brainstem. Normal cerebellum. There is no intracranial hemorrhage. There are no findings of an acute ischemic infarction. Normal visualized paranasal sinuses. CT/Brain/Head without Contrast IMPRESSION: No acute intracranial pathology of the brain. Electronically Signed: Kali Nails DO at 16:58 EST Reading Location ID and State: [facility] / [place] Tel [phone], Service support , CC: Dr. Arian Rodgers DO; [facility] Lumber Piler: Signed Normal [facility] Emergency Department Summary on 03-22-2024 Emergency Department Summary [facility] Medical Records Department [address] [place] [id number] Emergency Department Summary 03/22/24 MR#: [id number] Acct: [id number] Name: JUAQUIN KHALIL Rep #: [id number] : 1945 78 From: Arian Rodgers DO PCP: [facility] Status:DEP ER Location: ED HPI HPI - Fall History of Present Illness Chief Complaint: Fall Informant: patient Occured/Mechanism Occurred: Today Mechanism/Context: Yes same level fall and Yes slip Pain/Injury Location: Head, right shoulder, right elbow Pain Location: head and upper extremity Quality of Pain: Sharp Worsened by: Nothing Relieved by: Nothing Associated Symptoms Associated Symptoms: Negative for Parasthesias, Weakness, Loss of function, Inability to ambulate, Loss of consciousness or Amnesia Narrative Narrative: Patient presents after a fall that occurred today. Patient states he slipped on wet floor and fell. Patient has a recent proximal humerus fracture and is in a sling. Patient hit his head on a sewing table. states that the table was moved approximately 3 feet. Patient denies any loss of consciousness. Patient denies any paresthesias or weakness. Patient is on Coumadin because of an aortic valve replacement. Patient denies any nausea or vomiting. Patient denies any visual changes. Patient states that shoulder pain is worse with any movement. Patient denies any other injuries. [facility] Medical History (Updated 03/22/24 @ 17:[address] Arian Rodgers, DO) Wears hearing aid Thyroid disease High cholesterol Excessive bleeding Back pain Migraine headache Stroke/cerebrovascular accident History of IBS Gastric reflux Former smoker Sleep apnea Shortness of breath on exertion Leg cramps History of pain when walking History of edema History of echocardiogram History of stress test Cardiology follow-up encounter FH: bilateral hip replacements Home Medications ???Medication ???Instructions ???Recorded ???Last Taken ???Type warfarin 4 mg tablet (Jantoven) 4 mg PO SUTUWETHFRSA blood thinner 04/03/16 01/08/23 History allopurinol 100 mg tablet 100 mg PO DAILYCM gout 04/04/16 05/18/23 History atorvastatin 40 mg tablet 80 mg PO DAILY cholesterol 04/04/16 05/18/23 History ferrous sulfate 325 mg (65 mg 325 mg PO DAILY supplement 04/04/16 05/18/23 History iron) tablet isosorbide mononitrate 30 mg 30 mg PO DAILY chest pain 04/04/16 05/18/23 History tablet,extended release 24 hr levothyroxine 25 mcg tablet 50 mcg PO DAILY thyroid 04/04/16 05/18/23 History metoprolol tartrate 25 mg tablet 25 mg PO DAILY blood pressure 04/04/16 05/18/23 History pantoprazole 40 mg tablet,delayed 40 mg PO BID reflux 04/04/16 05/18/23 History release gabapentin 300 mg capsule 300 mg PO DAILY nerve pain 01/10/20 05/18/23 History tamsulosin 0.4 mg capsule 0.4 mg PO DAILY prostate 07/09/22 05/18/23 History aspirin 81 mg capsule 81 mg PO DAILY heart health 01/10/23 05/18/23 History finasteride 5 mg tablet 5 mg PO DAILY prostate 05/18/23 05/18/23 History warfarin 2 mg tablet (Jantoven) 2 mg PO DAILY blood thinner 05/19/23 Unknown History cefdinir 300 mg capsule 300 mg PO BID #10 caps 05/23/23 Unknown Rx furosemide 40 mg tablet (Lasix) 40 mg PO DAILY #30 tabs 05/23/23 Unknown Rx hydrocodone-acetaminophen 5-325mg 1 tab PO Q4H PRN PRN Pain 2 days 02/13/24 Unknown Rx 5mg-325mg #14 TABLETS Allergy/AdvReac Type Severity Reaction Status Date / Time hydrocodone bitartrate (From Allergy Other Verified 03/22/24 15:48 Vicodin) Surgical History (Updated 03/22/24 @ 15:[address] Arian Rodgers DO) History of total right hip replacement History of total left hip replacement History of heart surgery History of cardiac catheterization History of coronary artery stent placement Hx laparoscopic cholecystectomy Hx of aortic valve replacement History of open heart surgery Social History household members: spouse Smoking Status: Former smoker ROS ROS ED Constitutional Constitutional ED: Denies chills or fever(s) Eyes Eyes: Denies blurry vision or change in vision ENT ENT ED: Denies rhinorrhea or sore throat Cardiovascular Cardiovascular: Denies chest pain or palpitations Respiratory/Chest Respiratory/Chest: Denies cough or dyspnea Gastrointestinal Gastrointestinal: Denies nausea or vomiting Genitourinary Genitourinary ED: Denies dysuria or hematuria Musculoskeletal Musculoskeletal: Reports neck pain; Denies back pain Integumentary Denies abscess or rash Neurologic Neurologic: Denies headache(s) or weakness Allergic/Immunologic Allergic/Immunologic ED: Denies mouth swelling or urticaria EXAM Physical Exam Const Vital Signs: 03/22/24 15:22 03/22/24 15:46 03/22/24 16:21 Temperat (more content not included)... Normal [facility] Humerus min 2 Viewson 2023 Humerus min 2 Views [facility] Imaging Services [address] [place] [address] Humerus min 2 Views MR#: [id number] Acct: [id number] Name: JUAQUIN KHALIL Rep #: [id number] : 1945 M 78 From: Kali Nails DO [facility]: REG ER Study: Humerus min 2 Views Date of Exam: 03/22/24 Exam# [id number] Ordering Dr: Arian Rodgers DO [id number] INDICATION: Injury/Pain EXAMINATION/TECHNIQUE: X-RAY - RIGHT XR Humerus Min 2 Views 3 VIEWS COMPARISON: FINDINGS: SOFT TISSUES: No soft tissue swelling or gas. No radiopaque foreign body. BONES/JOINTS: Fracture at the proximal end of the humerus . Preservation of the joint space.. No sclerotic or destructive changes observed. RAD/Humerus min 2 Views IMPRESSION: Fracture at the proximal end of the humerus. Electronically Signed: Kali Nails DO at 17:41 EST Reading Location ID and State: [facility] / [place] Tel [phone], Service support , CC: Dr. Arian Rodgers DO; [facility] Lumber Piler: Signed Normal [facility] Abdomen/Pelvis W IV Cont ONL Yo 02-13-2024 Abdomen/Pelvis W IV Cont ONLY [facility] Imaging Services [address] [place] [address] Abdomen/Pelvis W IV Cont ONLY MR#: [id number] Acct: [id number] Name: JUAQUIN KHALIL Rep #: [id number] : 1945 78 From: Reginald tanner MD PCP: [facility] Status: REG ER Study: Abdomen/Pelvis W IV Cont ONLY Date of Exam: Exam# [id number] Ordering Dr: Anup Guerrero DO [id number] INDICATION: fall, right flank hematoma EXAMINATION: CT Abdomen And Pelvis W/ Contrast Injection TECHNIQUE: Helically acquired images were obtained of the abdomen and pelvis after IV contrast. A radiation dose optimization technique was used for this scan. IV Contrast dosage and agent: IV 100mL [id number] Oral contrast: None. COMPARISON: 11/02/2023. FINDINGS: Visualized lung bases: Unremarkable Liver: Unremarkable Gallbladder: Not visualized. Spleen: Unremarkable Pancreas: Unremarkable Adrenal Glands: 1.3 cm intermediate density nodule in the right adrenal gland, similar in appearance to prior on 11/02/2023. Kidneys: No hydronephrosis or obstructing renal/ureteral stone. Vasculature: Moderate aortoiliac atherosclerotic disease. GI Tract: Hiatal hernia. Diverticulosis without evidence of diverticulitis. Lymphadenopathy: None Peritoneum: No ascites. Bladder: Unremarkable Reproductive organs: Unremarkable Bones/Soft tissues: There are diffuse degenerative changes of the spine. Stable chronic compression deformity of L4. CT/Abdomen/Pelvis W IV Cont ONLY IMPRESSION: No acute abnormalities in the abdomen or pelvis. Stable chronic findings as above. Electronically Signed: Reginald Melo MD at 20:01 EDT , CC: Dr. Anup Guerrero, DO; [facility] Lumber Piler: Signed Normal [facility] Basic Metabolic Profile (BMP )on 02-13-2024 BUN/CRE 22.1 RATIO High 02-17 [facility] Comment on above: Performed By: #### L 501.5200, L500.2500, L501.2300, L300.3900, L100.0100 #### [facility] Laboratory [address] [place], [address] CA,Total 8.8 mg/dL Normal 8.5-10.1 [facility] Comment on above: Performed By: #### L 501.5200, L500.2500, L501.2300, L300.3900, L100.0100 #### [facility] [address] [place], [address] Chloride [Moles/Vol] 102 mmol/L Normal 98-107 [facility] Comment on above: Performed By: #### L 501.5200, L500.2500, L501.2300, L300.3900, L100.0100 #### [facility] [address] [place], [address] CO2 [Moles/Vol] 29.0 mmol/L Normal 21.0-32.0 [facility] Comment on above: Performed By: #### L 501.5200, L500.2500, L501.2300, L300.3900, L100.0100 #### [facility] [address] [place], [address] Creatinine [Mass/Vol] 1.04 mg/dL Normal 0.70-1.30 [facility] Comment on above: Result Comment: The validity of the calculated GFR GFRAA in patients over 70 years has not been determined. Clinical correlation is essential. Performed By: #### L 501.5200, L500.2500, L501.2300, L300.3900, L100.0100 #### [facility] [address] [place], [address] ECRCL 68.53 ml/min Normal [facility] Comment on above: Performed By: #### L 501.5200, L500.2500, L501.2300, L300.3900, L100.0100 #### [facility] [address] [place], [address] EST GFR - AA 89 mL/min Normal >60 [facility] Comment on above: Result Comment: Afri can Pakistani GFR Calc Performed By: #### L 501.5200, L500.2500, L501.2300, L300.3900, L100.0100 #### [facility] [address] [place], [address] GAP 6 Normal 5-15 [facility] Comment on above: Performed By: #### L 501.5200, L500.2500, L501.2300, L300.3900, L100.0100 #### [facility] [address] [place], [address] GFR/1.73 sq M.predicted among non-blacks MDRD (S/P/Bld) [Vol rate/Area] 73 mL/min/{1.73_m2} Normal >60 [facility] Comment on above: Result Comment: Non- GFR Calc Performed By: #### L 501.5200, L500.2500, L501.2300, L300.3900, L100.0100 #### [facility] [address] [place], [address] Glucose [Mass/Vol] 113 mg/dL High 74-106 [facility] Comment on above: Result Comment: Fast ing Glucose result from 100 to 125 mg/dL suggests IMPAIRED HOMEOSTASIS per A.D.A. criteria. Performed By: #### L 501.5200, L500.2500, L501.2300, L300.3900, L100.0100 #### [facility] [address] [place], [address] Potassium [Moles/Vol] 4.1 mmol/L Normal 3.5-5.1 [facility] Comment on above: Performed By: #### L 501.5200, L500.2500, L501.2300, L300.3900, L100.0100 #### [facility] [address] [place], [address] Sodium [Moles/Vol] 137 mmol/L Normal 136-145 [facility] Comment on above: Performed By: #### L 501.5200, L500.2500, L501.2300, L300.3900, L100.0100 #### [facility] [address] [place], [address] Urea nitrogen [Mass/Vol] 23 mg/dL High 7-18 [facility] Comment on above: Performed By: #### L 501.5200, L500.2500, L501.2300, L300.3900, L100.0100 #### [facility] [address] [place], [address] CBC W/Diff, Automatedon 01-29 Absolute Lymph 1.10 X10 3/uL Normal 0.83-4.51 [facility] Comment on above: Performed By: #### L 501.5200, L500.2500, L501.2300, L300.3900, L100.0100 #### [facility] [address] [place], [address] Absolute Neut 6.9 X10 3/uL Normal 2.0-7.7 [facility] Comment on above: Performed By: #### L 501.5200, L500.2500, L501.2300, L300.3900, L100.0100 #### [facility] [address] [place], [address] Basophils/100 WBC (Bld) 0.3 % Normal 0-1 [facility] Comment on above: Performed By: #### L 501.5200, L500.2500, L501.2300, L300.3900, L100.0100 #### [facility] [address] [place], [address] Eosinophils/100 WBC (Bld) 2.3 % Normal 0-5 [facility] Comment on above: Performed By: #### L 501.5200, L500.2500, L501.2300, L300.3900, L100.0100 #### [facility] [address] [place], [address] Erythrocyte distribution width (RBC) [Ratio] 17.9 % High 11.6-14.6 [facility] Comment on above: Performed By: #### L 501.5200, L500.2500, L501.2300, L300.3900, L100.0100 #### [facility] [address] [place], [address] Hematocrit (Bld) [Volume fraction] 28.9 % Low 40-54 [facility] Comment on above: Performed By: #### L 501.5200, L500.2500, L501.2300, L300.3900, L100.0100 #### [facility] [address] [place], [address] Hemoglobin (Bld) [Mass/Vol] 9.2 g/dL Low 13.0-16.5 [facility] Comment on above: Performed By: #### L 501.5200, L500.2500, L501.2300, L300.3900, L100.0100 #### [facility] [address] [place], [address] IG% 0.900 Normal 0.0-0.9 [facility] Comment on above: Result Comment: IG% - Immature Granulocytes (promyelocytes, myelocytes and metamyelocytes) > 1% indicates that a LEFT SHIFT is Present. Performed By: #### L 501.5200, L500.2500, L501.2300, L300.3900, L100.0100 #### [facility] [address] [place], [address] Lymphocytes/100 WBC (Bld) 12.2 % Low 19-41 [facility] Comment on above: Performed By: #### L 501.5200, L500.2500, L501.2300, L300.3900, L100.0100 #### [facility] [address] [place], [address] MCH (RBC) [Entitic mass] 28.1 pg Normal 27.0-32.0 [facility] Comment on above: Performed By: #### L 501.5200, L500.2500, L501.2300, L300.3900, L100.0100 #### [facility] [address] [place], [address] MCHC (RBC) [Mass/Vol] 31.8 g/dL Low 32-36 [facility] Comment on above: Performed By: #### L 501.5200, L500.2500, L501.2300, L300.3900, L100.0100 #### [facility] [address] [place], [address] MCV (RBC) [Entitic vol] 88.4 fL Normal 80-94 [facility] Comment on above: Performed By: #### L 501.5200, L500.2500, L501.2300, L300.3900, L100.0100 #### [facility] [address] [place], [address] Monocytes/100 WBC (Bld) 7.2 % Normal 0-10 [facility] Comment on above: Performed By: #### L 501.5200, L500.2500, L501.2300, L300.3900, L100.0100 #### [facility] [address] [place], [address] Neutrophils/100 WBC (Bld) 77.1 % High 47-70 [facility] Comment on above: Performed By: #### L 501.5200, L500.2500, L501.2300, L300.3900, L100.0100 #### [facility] [address] [place], [address] Nucleated RBC (Bld) [#/Vol] 0.2 10*3/uL Normal 0-5 [facility] Comment on above: Performed By: #### L 501.5200, L500.2500, L501.2300, L300.3900, L100.0100 #### [facility] [address] [place], [address] Platelet mean volume (Bld) [Entitic vol] 10.8 fL Normal 6.2-12.0 [facility] Comment on above: Performed By: #### L 501.5200, L500.2500, L501.2300, L300.3900, L100.0100 #### [facility] [address] [place], [address] Platelets (Bld) [#/Vol] 237 10*3/uL Normal 150-450 [facility] Comment on above: Performed By: #### L 501.5200, L500.2500, L501.2300, L300.3900, L100.0100 #### [facility] [address] [place], [address] RBC (Bld) [#/Vol] 3.27 10*6/uL Low 4.6-6.2 [facility] Comment on above: Performed By: #### L 501.5200, L500.2500, L501.2300, L300.3900, L100.0100 #### [facility] [address] [place], [address] RDW SD 58.8 fl High 35.1-43.9 [facility] Comment on above: Performed By: #### L 501.5200, L500.2500, L501.2300, L300.3900, L100.0100 #### [facility] [address] [place], [address] WBC (Bld) [#/Vol] 9.0 10*3/uL Normal 4.4-11.0 [facility] Comment on above: Performed By: #### L 501.5200, L500.2500, L501.2300, L300.3900, L100.0100 #### [facility] [address] [place], [address] Emergency Department Summary on 02-13-2024 Emergency Department Summary [facility] Medical Records Department [address] [place] [address] Emergency Department Summary 02/13/24 MR#: [id number] Acct: [id number] Name: JUAQUIN KHALIL Rep #: [id number] : 1945 78 From: Anup Guerrero DO PCP: [place] Hospital Status:DEP ER Location: ED HPI History of Present Illness Chief Complaint: Lower Extremity Injury Detail of Chief Complaint: Ecchymosis and bruising above right hip Informant: patient and spouse/S.O. Narrative Narrative: Patient presents with ecchymosis and bruising about the right hip that initially was mild and started after a fall 4 days ago. Patient was seen at the [place] emergency department where he states he had a CT of his brain as well as an x-ray of his right arm and a CT of his hip. Patient states that there was no fracture of his hip. He did have a fracture of his proximal humerus and he is in a sling. Patient was referred to the [place]. Patient states initially had a some just mild ecchymosis and bruising over the area of the right hip but since has significantly worsened. He complains of pain with walking. He is ambulatory. Patient is on Coumadin and his last INR was January 16 and was 3.2. [facility] Medical History Wears hearing aid Thyroid disease High cholesterol Excessive bleeding Back pain Migraine headache Stroke/cerebrovascular accident History of IBS Gastric reflux Former smoker Sleep apnea Shortness of breath on exertion Leg cramps History of pain when walking History of edema History of echocardiogram History of stress test Cardiology follow-up encounter FH: bilateral hip replacements Home Medications ???Medication ???Instructions ???Recorded ???Last Taken ???Type warfarin 4 mg tablet (Jantoven) 4 mg PO SUTUWETHFRSA blood thinner 04/03/16 01/08/23 History allopurinol 100 mg tablet 100 mg PO DAILYCM gout 04/04/16 05/18/23 History atorvastatin 40 mg tablet 80 mg PO DAILY cholesterol 04/04/16 05/18/23 History ferrous sulfate 325 mg (65 mg 325 mg PO DAILY supplement 04/04/16 05/18/23 History iron) tablet isosorbide mononitrate 30 mg 30 mg PO DAILY chest pain 04/04/16 05/18/23 History tablet,extended release 24 hr levothyroxine 25 mcg tablet 50 mcg PO DAILY thyroid 04/04/16 05/18/23 History metoprolol tartrate 25 mg tablet 25 mg PO DAILY blood pressure 04/04/16 05/18/23 History pantoprazole 40 mg tablet,delayed 40 mg PO BID reflux 04/04/16 05/18/23 History release gabapentin 300 mg capsule 300 mg PO DAILY nerve pain 01/10/20 05/18/23 History tamsulosin 0.4 mg capsule 0.4 mg PO DAILY prostate 07/09/22 05/18/23 History aspirin 81 mg capsule 81 mg PO DAILY heart health 01/10/23 05/18/23 History finasteride 5 mg tablet 5 mg PO DAILY prostate 05/18/23 05/18/23 History warfarin 2 mg tablet (Jantoven) 2 mg PO DAILY blood thinner 05/19/23 Unknown History cefdinir 300 mg capsule 300 mg PO BID #10 caps 05/23/23 Unknown Rx furosemide 40 mg tablet (Lasix) 40 mg PO DAILY #30 tabs 05/23/23 Unknown Rx hydrocodone-acetaminophen 5-325mg 1 tab PO Q4H PRN PRN Pain 2 days 02/13/24 Unknown Rx 5mg-325mg #14 TABLETS Allergy/AdvReac Type Severity Reaction Status Date / Time hydrocodone bitartrate (From Allergy Other Verified 02/13/24 16:08 Vicodin) Surgical History History of heart surgery History of cardiac catheterization History of coronary artery stent placement Hx laparoscopic cholecystectomy Hx of aortic valve replacement History of open heart surgery Social History household members: spouse Smoking Status: Former smoker ROS ROS ED Review of Systems ROS Unobtainable: other Constitutional Constitutional ED: Reports lethargy; Denies chills, fever(s), sweats or weight loss Eyes Eyes: Denies blurry vision, change in vision or diplopia ENT ENT ED: Denies rhinorrhea or sore throat Cardiovascular Cardiovascular: Denies chest pain, orthopnea or racing heartbeat Respiratory/Chest Respiratory/Chest: Denies cough, dyspnea, dyspnea on exertion, orthopnea or sputum Gastrointestinal Gastrointestinal: Denies abdominal pain, diarrhea, nausea or vomiting Genitourinary Genitourinary ED: Denies dysuria, hematuria or urinary frequency Musculoskeletal Musculoskeletal: Reports other Details: Right hip pain ; Denies arthralgias, back pain, myalgias or neck pain Integumentary Reports other Details: Ecchymosis and bruising right hip ; Denies abscess, Abrasions or rash Neurologic Neurologic: Denies headache(s) or weakness Psychiatric Psychiatric: Denies anxiety, depression or suicidal thoughts Endocrine Endocrinology: Denies polydipsia, polyphagia or polyuria Hematologic/Lymphatic Hemat (more content not included)... Normal [facility] Prothrombin Time w/INRon INR Coag (PPP) [Relative time] 3.6 {INR} Normal [facility] Comment on above: Performed By: #### L 501.5200, L500.2500, L501.2300, L300.3900, L100.0100 #### [facility] [address] [place], [address] PT Coag (PPP) [Time] 35.5 s High 11.7-14.9 [facility] Comment on above: Performed By: #### L 501.5200, L500.2500, L501.2300, L300.3900, L100.0100 #### [facility] [address] [place], [place], [address] CT HEAD OR BRAIN W/O CONTRAS Ton 02-10-2024 CT HEAD OR BRAIN W/O CONTRAST ORIGINAL EXAMINATION: CT OF THE HEAD WITHOUT CONTRAST 02/10/2024 1:54 pm TECHNIQUE: CT of the head was performed without the administration of intravenous contrast. Automated exposure control, iterative reconstruction, and/or weight based adjustment of the mA/kV was utilized to reduce the radiation dose to as low as reasonably achievable. COMPARISON: February 25, 2014 HISTORY: ORDERING SYSTEM PROVIDED HISTORY: Reason for Exam: pain; trauma patient FINDINGS: Mild frontal hyperostosis is present. No calvarial fracture is evident. Within the brain, no hemorrhage or mass is visible. Left-sided encephalomalacia is present from a previous left MCA distribution infarct. Sulci and de la cruz-white junctions elsewhere are preserved. No additional contributory abnormality identified. IMPRESSION: Remote left MCA distribution infarct. No acute abnormality identified. Interpreted by: Sushil Bolden MD Preliminary Report By: Sushil Bolden MD Electronically signed By Sushil Bolden MD Dictated Date: 02/10/2024 2:04:31 PM Prelim Date: 02/10/2024 2:06:15 PM Sign Date: 02/10/2024 2:06:15 PM Ordering Provider: RORY GONZALES [facility] CT SPINE CERVICAL W/O CONTRA STon 02-10-2024 CT SPINE CERVICAL W/O CONTRAST ORIGINAL EXAMINATION: CT OF THE CERVICAL SPINE WITHOUT CONTRAST 02/10/2024 1:54 pm TECHNIQUE: CT of the cervical spine was performed without the administration of intravenous contrast. Multiplanar reformatted images are provided for review. Automated exposure control, iterative reconstruction, and/or weight based adjustment of the mA/kV was utilized to reduce the radiation dose to as low as reasonably achievable. COMPARISON: None. HISTORY: ORDERING SYSTEM PROVIDED HISTORY: Reason for Exam: pain; trauma patient FINDINGS: Cervical vertebra show normal height and alignment. Scattered degenerative changes are present, including C1-2. Scattered sclerotic foci are noted, largest within the C7 vertebra. No acute fracture is visible. No additional contributory abnormality seen. IMPRESSION: 1. Minor degenerative changes. 2. No acute fracture seen. 3. Scattered sclerotic osseous foci. These may represent bone islands. Is there a history of malignancy to suggest blastic metastatic disease? Interpreted by: Sushil Bolden MD Preliminary Report By: Sushil Bolden MD Electronically signed By Sushil Bolden MD Dictated Date: 02/10/2024 2:06:25 PM Prelim Date: 02/10/2024 2:11:14 PM Sign Date: 02/10/2024 2:11:14 PM Ordering Provider: RORY GONZALES [facility] XR HIP RIGHT W/PELVIS 4 VIEW Son 02-10-2024 XR HIP RIGHT W/PELVIS 4 VIEWS ORIGINAL EXAMINATION: 2 XRAY VIEWS OF THE RIGHT HIP, VIEWS OF THE PELVIS 1 VIEWS OF THE PELVIS. COMPARISON: CT abdomen and pelvis 03/02/2018. HISTORY: ORDERING SYSTEM PROVIDED HISTORY: Reason for Exam: fall FINDINGS: Limited evaluation of the pelvis due to rotation. The pelvic ring appears intact. Partially visualized left proximal femoral nail is noted. Few right proximal femoral nails are noted. No evidence of acute fracture or dislocation. Vertebroplasty changes are noted within the lower lumbar spine. IMPRESSION: No acute fracture or dislocation. Interpreted by: Ramana Chan Preliminary Report By: Ramana Chan Electronically signed By Ramana Chan Dictated Date: 02/10/2024 2:06:04 PM Prelim Date: 02/10/2024 2:08:04 PM Sign Date: 02/10/2024 2:08:04 PM Ordering Provider: RORY GONZALES [facility] XR SHOULDER MINIMUM 2 VIEWS RIGHTon 02-10-2024 XR SHOULDER MINIMUM 2 VIEWS RIGHT ORIGINAL EXAMINATION: TWO XRAY VIEWS OF THE RIGHT SHOULDER 02/10/2024 1:55 pm COMPARISON: None. HISTORY: ORDERING SYSTEM PROVIDED HISTORY: Reason for Exam: fall FINDINGS: The humeral head appears appropriately seated within the glenoid. There is some cortical irregularity along the greater tuberosity without significant displacement. The acromioclavicular and coracoclavicular distances are maintained. Moderate degenerative changes of the right acromioclavicular joint. The included thoracic structures are unremarkable. IMPRESSION: Suspect nondisplaced fracture of the right humeral greater tuberosity. Interpreted by: Ramana Chan Preliminary Report By: Ramana Chan Electronically signed By Ramana Chan Dictated Date: 02/10/2024 2:01:07 PM Prelim Date: 02/10/2024 2:05:47 PM Sign Date: 02/10/2024 2:05:47 PM Ordering Provider: RORY GONZALES [facility] Abdomen/Pelvis W IV Cont ONL Yon 11-02-2023 Abdomen/Pelvis W IV Cont ONLY [facility] Imaging Services [address] [place] [id number] Abdomen/Pelvis W IV Cont ONLY MR#: [id number] Acct: [id number] Name: JUAQUIN KHALIL Rep #: [id number] : 1945 M 78 From: Homar Ramirez MD PCP: [place] [facility] Status: REG ER Study: Abdomen/Pelvis W IV Cont ONLY Date of Exam: Exam# [id number] Ordering Dr: Estella Figueroa [id number] EXAM: CT ABDOMEN AND PELVIS WITH INTRAVENOUS CONTRAST CLINICAL INDICATION: diarrhea TECHNIQUE: Helically acquired images were obtained of the abdomen and pelvis with intravenous contrast. This CT exam was performed using one or more of the following dose reduction techniques: automated exposure control, adjustment of the mA and/or kV according to patient size, and/or use of iterative reconstruction technique. CONTRAST: IV 100mL [id number] COMPARISON: MRI abdomen 05/19/2023 FINDINGS: LOWER THORAX: Small bilateral pleural effusions with minor bibasilar atelectasis. Mild cardiomegaly. ABDOMEN: LIVER: Normal. Homogeneous. No focal mass. GALLBLADDER AND BILE DUCTS: Cholecystectomy noted. No intra- or extrahepatic biliary ductal dilation. PANCREAS: Normal. No focal cystic or solid mass. SPLEEN: Stable 14 mm splenic cyst. ADRENALS: Stable 16 mm right adrenal nodule. KIDNEYS AND URETERS: Normal. Normal renal size and position. No hydronephrosis. STOMACH AND BOWEL: 6.3 cm duodenal diverticulum arises from the fourth portion of the duodenum. Diverticulosis of the colon noted without evidence of acute diverticulitis. PELVIS: APPENDIX: Appendix is visualized and normal in appearance. BLADDER: Normal. REPRODUCTIVE: Unremarkable as visualized. No mass. ABDOMEN and PELVIS: INTRAPERITONEAL SPACE: Normal. No ascites or other fluid collection. No free air. BONES/JOINTS: Surgical fixation of both femoral necks noted. Bony structures are diffusely osteoporotic. Sclerotic area within the left femoral head consistent with changes of chronic AVN. There is prominent compression deformity of the L4 vertebral body which is chronic in nature. Vertebroplasty changes are noted at L4. SOFT TISSUES: Small fat-containing bilateral inguinal hernias. Small sliding hilum hernia. VASCULATURE: Normal. Abdominal aorta is non-dilated. LYMPH NODES: Normal. No enlarged lymph nodes. CT/Abdomen/Pelvis W IV Cont ONLY IMPRESSION: 1. No acute abdominal or pelvic abnormality. 2. Diverticulosis coli. 3. Stable 16mm right adrenal nodule. 4. Mild cardiomegaly. 5. Small bilateral pleural effusions and mild bibasilar atelectasis. 6. Additional findings detailed above. Electronically Signed: Homar Ramirez MD at 15:42 EDT , CC: ZACHERY Ricketts; [facility] Lumber Piler: Signed Normal [facility] Basic Metabolic Profile (BMP )on 11-02-2023 BUN/CRE 17.2 RATIO Normal 10-20 [facility] Comment on above: Performed By: #### L 501.5200, L500.2500, L501.2300, L300.3900, L100.0100 #### [facility] Laboratory [address] [place], [address] CA,Total 8.3 mg/dL Low 8.5-10.1 [facility] Comment on above: Performed By: #### L 501.5200, L500.2500, L501.2300, L300.3900, L100.0100 #### [facility] [address] [place], [address] Chloride [Moles/Vol] 104 mmol/L Normal 98-107 [facility] Comment on above: Performed By: #### L 501.5200, L500.2500, L501.2300, L300.3900, L100.0100 #### [facility] [address] [place], [address] CO2 [Moles/Vol] 28.0 mmol/L Normal 21.0-32.0 [facility] Comment on above: Performed By: #### L 501.5200, L500.2500, L501.2300, L300.3900, L100.0100 #### [facility] [address] [place], [address] Creatinine [Mass/Vol] 0.76 mg/dL Normal 0.70-1.30 [facility] Comment on above: Result Comment: The validity of the calculated GFR GFRAA in patients over 70 years has not been determined. Clinical correlation is essential. Performed By: #### L 501.5200, L500.2500, L501.2300, L300.3900, L100.0100 #### [facility] [address] [place], [address] ECRCL 92.22 ml/min Normal [facility] Comment on above: Performed By: #### L 501.5200, L500.2500, L501.2300, L300.3900, L100.0100 #### [facility] [address] [place], [address] EST GFR - AA 129 mL/min Normal >60 [facility] Comment on above: Result Comment: Afri can Pakistani GFR Calc Performed By: #### L 501.5200, L500.2500, L501.2300, L300.3900, L100.0100 #### [facility] [address] [place], [address] GAP 7 Normal 5-15 [facility] Comment on above: Performed By: #### L 501.5200, L500.2500, L501.2300, L300.3900, L100.0100 #### [facility] [address] [place], [address] GFR/1.73 sq M.predicted among non-blacks MDRD (S/P/Bld) [Vol rate/Area] 106 mL/min/{1.73_m2} Normal >60 [facility] Comment on above: Result Comment: Non- GFR Calc Performed By: #### L 501.5200, L500.2500, L501.2300, L300.3900, L100.0100 #### [facility] [address] [place], [address] Glucose [Mass/Vol] 108 mg/dL High 74-106 [facility] Comment on above: Result Comment: Fast ing Glucose result from 100 to 125 mg/dL suggests IMPAIRED HOMEOSTASIS per A.D.A. criteria. Performed By: #### L 501.5200, L500.2500, L501.2300, L300.3900, L100.0100 #### [facility] [address] [place], [address] Potassium [Moles/Vol] 3.7 mmol/L Normal 3.5-5.1 [facility] Comment on above: Performed By: #### L 501.5200, L500.2500, L501.2300, L300.3900, L100.0100 #### [facility] [address] [place], [address] Sodium [Moles/Vol] 139 mmol/L Normal 136-145 [facility] Comment on above: Performed By: #### L 501.5200, L500.2500, L501.2300, L300.3900, L100.0100 #### [facility] [address] [place], [address] Urea nitrogen [Mass/Vol] 13 mg/dL Normal 7-18 [facility] Comment on above: Performed By: #### L 501.5200, L500.2500, L501.2300, L300.3900, L100.0100 #### [facility] [address] [place], [address] CBC W/Diff, Automatedon 07-0 4-2023 Absolute Lymph 1.04 X10 3/uL Normal 0.83-4.51 [facility] Comment on above: Performed By: #### L 501.5200, L500.2500, L501.2300, L300.3900, L100.0100 #### [facility] [address] [place], [address] Absolute Neut 10.0 X10 3/uL High 2.0-7.7 [facility] Comment on above: Performed By: #### L 501.5200, L500.2500, L501.2300, L300.3900, L100.0100 #### [facility] [address] [place], [address] Basophils/100 WBC (Bld) 0.4 % Normal 0-1 [facility] Comment on above: Performed By: #### L 501.5200, L500.2500, L501.2300, L300.3900, L100.0100 #### [facility] [address] [place], [address] Eosinophils/100 WBC (Bld) 0.9 % Normal 0-5 [facility] Comment on above: Performed By: #### L 501.5200, L500.2500, L501.2300, L300.3900, L100.0100 #### [facility] [address] [place], [address] Erythrocyte distribution width (RBC) [Ratio] 15.8 % High 11.6-14.6 [facility] Comment on above: Performed By: #### L 501.5200, L500.2500, L501.2300, L300.3900, L100.0100 #### [facility] [address] [place], [address] Hematocrit (Bld) [Volume fraction] 35.6 % Low 40-54 [facility] Comment on above: Performed By: #### L 501.5200, L500.2500, L501.2300, L300.3900, L100.0100 #### [facility] [address] [place], [address] Hemoglobin (Bld) [Mass/Vol] 11.3 g/dL Low 13.0-16.5 [facility] Comment on above: Performed By: #### L 501.5200, L500.2500, L501.2300, L300.3900, L100.0100 #### [facility] [address] [place], [address] IG% 0.300 Normal 0.0-0.9 [facility] Comment on above: Result Comment: IG% - Immature Granulocytes (promyelocytes, myelocytes and metamyelocytes) > 1% indicates that a LEFT SHIFT is Present. Performed By: #### L 501.5200, L500.2500, L501.2300, L300.3900, L100.0100 #### [facility] [address] [place], [address] Lymphocytes/100 WBC (Bld) 8.8 % Low 19-41 [facility] Comment on above: Performed By: #### L 501.5200, L500.2500, L501.2300, L300.3900, L100.0100 #### [facility] [address] [place], [address] MCH (RBC) [Entitic mass] 28.6 pg Normal 27.0-32.0 [facility] Comment on above: Performed By: #### L 501.5200, L500.2500, L501.2300, L300.3900, L100.0100 #### [facility] [address] [place], [address] MCHC (RBC) [Mass/Vol] 31.7 g/dL Low 32-36 [facility] Comment on above: Performed By: #### L 501.5200, L500.2500, L501.2300, L300.3900, L100.0100 #### [facility] [address] [place], [address] MCV (RBC) [Entitic vol] 90.1 fL Normal 80-94 [facility] Comment on above: Performed By: #### L 501.5200, L500.2500, L501.2300, L300.3900, L100.0100 #### [facility] [address] [place], [address] Monocytes/100 WBC (Bld) 4.5 % Normal 0-10 [facility] Comment on above: Performed By: #### L 501.5200, L500.2500, L501.2300, L300.3900, L100.0100 #### [facility] [address] [place], [address] Neutrophils/100 WBC (Bld) 85.1 % High 47-70 [facility] Comment on above: Performed By: #### L 501.5200, L500.2500, L501.2300, L300.3900, L100.0100 #### [facility] [address] [place], [address] Nucleated RBC (Bld) [#/Vol] 0 10*3/uL Normal 0-5 [facility] Comment on above: Performed By: #### L 501.5200, L500.2500, L501.2300, L300.3900, L100.0100 #### [facility] [address] [place], [address] Platelet mean volume (Bld) [Entitic vol] 9.9 fL Normal 6.2-12.0 [facility] Comment on above: Performed By: #### L 501.5200, L500.2500, L501.2300, L300.3900, L100.0100 #### [facility] [address] [place], [address] Platelets (Bld) [#/Vol] 161 10*3/uL Normal 150-450 [facility] Comment on above: Performed By: #### L 501.5200, L500.2500, L501.2300, L300.3900, L100.0100 #### [facility] [address] [place], [address] RBC (Bld) [#/Vol] 3.95 10*6/uL Low 4.6-6.2 [facility] Comment on above: Performed By: #### L 501.5200, L500.2500, L501.2300, L300.3900, L100.0100 #### [facility] [address] [place], [address] RDW SD 51.8 fl High 35.1-43.9 [facility] Comment on above: Performed By: #### L 501.5200, L500.2500, L501.2300, L300.3900, L100.0100 #### [facility] [address] [place], [address] WBC (Bld) [#/Vol] 11.8 10*3/uL High 4.4-11.0 [facility] Comment on above: Performed By: #### L 501.5200, L500.2500, L501.2300, L300.3900, L100.0100 #### [facility] [address] [place], [address] Emergency Department Summary on 11-02-2023 Emergency Department Summary [facility] Medical Records Department [address] [place] [address] Emergency Department Summary 11/02/23 MR#: [id number] Acct: [id number] Name: JUAQUIN KHALIL Rep #: [id number] : 1945 78 From: Jayesh Mccarthy MD PCP: [facility] Status:[facility] ER Location: ED HPI HPI - GI History of Present Illness Chief Complaint: Diarrhea Narrative Narrative: Patient presenting today due to diarrhea that he has had for over 2 months. He reports that he has multiple loose stools daily. He reports that he cannot take the diarrhea anymore prompting him to come in. His PCP has obtained a stool study which he thinks came back negative but is not sure what they tested for. He has not seen GI for this. He last had a colonoscopy 1 year ago and was told it was normal. He denies any fever, chills, abdominal pain, nausea, vomiting, melena, and hematochezia. He reports a PMH of leukemia, CVA, hypertension, valve replacement, and CAD. [facility] Medical History Wears hearing aid Thyroid disease High cholesterol Excessive bleeding Back pain Migraine headache Stroke/cerebrovascular accident History of IBS Gastric reflux Former smoker Sleep apnea Shortness of breath on exertion Leg cramps History of pain when walking History of edema History of echocardiogram History of stress test Cardiology follow-up encounter FH: bilateral hip replacements Home Medications ???Medication ???Instructions ???Recorded ???Last Taken ???Type warfarin 4 mg tablet (Jantoven) 4 mg PO SUTUWETHFRSA blood thinner 04/03/16 01/08/23 History allopurinol 100 mg tablet 100 mg PO DAILYCM gout 04/04/16 05/18/23 History atorvastatin 40 mg tablet 80 mg PO DAILY cholesterol 04/04/16 05/18/23 History ferrous sulfate 325 mg (65 mg 325 mg PO DAILY supplement 04/04/16 05/18/23 History iron) tablet isosorbide mononitrate 30 mg 30 mg PO DAILY chest pain 04/04/16 05/18/23 History tablet,extended release 24 hr levothyroxine 25 mcg tablet 50 mcg PO DAILY thyroid 04/04/16 05/18/23 History metoprolol tartrate 25 mg tablet 25 mg PO DAILY blood pressure 04/04/16 05/18/23 History pantoprazole 40 mg tablet,delayed 40 mg PO BID reflux 04/04/16 05/18/23 History release gabapentin 300 mg capsule 300 mg PO DAILY nerve pain 01/10/20 05/18/23 History tamsulosin 0.4 mg capsule 0.4 mg PO DAILY prostate 07/09/22 05/18/23 History aspirin 81 mg capsule 81 mg PO DAILY heart health 01/10/23 05/18/23 History finasteride 5 mg tablet 5 mg PO DAILY prostate 05/18/23 05/18/23 History warfarin 2 mg tablet (Jantoven) 2 mg PO DAILY blood thinner 05/19/23 Unknown History cefdinir 300 mg capsule 300 mg PO BID #10 caps 05/23/23 Unknown Rx furosemide 40 mg tablet (Lasix) 40 mg PO DAILY #30 tabs 05/23/23 Unknown Rx Allergy/AdvReac Type Severity Reaction Status Date / Time hydrocodone bitartrate (From Allergy Other Verified 11/02/23 13:33 Vicodin) Surgical History History of heart surgery History of cardiac catheterization History of coronary artery stent placement Hx laparoscopic cholecystectomy Hx of aortic valve replacement History of open heart surgery Social History household members: spouse Smoking Status: Former smoker ROS ROS ED Constitutional Constitutional ED: Denies chills or fever(s) Cardiovascular Cardiovascular: Denies chest pain Respiratory/Chest Respiratory/Chest: Denies cough or dyspnea Gastrointestinal Gastrointestinal: Reports diarrhea; Denies abdominal pain, constipation, melena, nausea or vomiting Genitourinary Genitourinary ED: Denies dysuria, hematuria or urinary urgency Musculoskeletal Musculoskeletal: Denies arthralgias or myalgias Integumentary Denies rash Neurologic Neurologic: Denies weakness EXAM Physical Exam Const Vital Signs: 11/02/23 13:33 11/02/23 15:32 Temperature 97.1 F L Temperature Source Temporal Pulse Rate 87 74 Respiratory Rate 18 18 Blood Pressure 148/54 H 144/62 H Blood Pressure Mean 85 89 Pulse Ox 96 96 Oxygen Delivery Method Room Air Room Air Positive well nourished, well developed and no apparent distress General Appearance ED: well developed HEENT Reports normocephalic and head/scalp atraumatic Mouth ED: Yes moist mucous membranes normal Eyes PERRL and EOMs intact bilaterally Neck full ROM and supple Chest Wall inspection of chest normal Resp normal respiratory effort and clear to auscultation bilaterally Cardio regular rate and regular rhythm GI soft to palpation, non-tender, non-distended and no masses Back/Spine normal ROM and normal to inspection Extremity normal to inspec (more content not included)... Normal [facility] CA 19-9 Serial Monitoron CA 19-9 60 U/mL High 0-35 [facility] Comment on above: Result Comment: [employer] Electrochemiluminescence Immunoassay (ECLIA) Values obtained with different assay methods or kits cannot be used interchangeably. Results cannot be interpreted as absolute evidence of the presence or absence of malignant disease. Performed at: [address] [id number] Netting Inspector: Maicol Meyer PhD, Phone: [phone] Performed By: #### L 501.5200, L500.2500, L501.2300, L300.3900, L100.0100 #### [facility] [address] [place], [address] Culture, Blood (WB)on 2023 CUB No growth in 5 days. Normal [facility] Comment on above: Performed By: #### M 200.1000 ####[facility] [id number] [place], [address] Performed By: #### L 501.5200, L500.2500, L501.2300, L300.3900, L100.0100 #### [facility] [address] [place], [address] Basic Metabolic Profile (BMP )on 05-25-2023 BUN Normal 7-18 [facility] Comment on above: Result Comment: Canc elled via OM: Order cancelled - Patient discharged Performed By: #### L 501.5200, L500.2500, L501.2300, L300.3900, L100.0100 #### [facility] [address] [place], [address] BUN/CRE Normal 10-20 [facility] Comment on above: Result Comment: Canc elled via OM: Order cancelled - Patient discharged Performed By: #### L 501.5200, L500.2500, L501.2300, L300.3900, L100.0100 #### [facility] [address] [place], [address] CA,Total Normal 8.5-10.1 [facility] Comment on above: Result Comment: Canc elled via OM: Order cancelled - Patient discharged Performed By: #### L 501.5200, L500.2500, L501.2300, L300.3900, L100.0100 #### [facility] [address] [place], [address] CL Normal 98-107 [facility] Comment on above: Result Comment: Canc elled via OM: Order cancelled - Patient discharged Performed By: #### L 501.5200, L500.2500, L501.2300, L300.3900, L100.0100 #### [facility] [address] [place], [address] CO2 Normal 21.0-32.0 [facility] Comment on above: Result Comment: Canc elled via OM: Order cancelled - Patient discharged Performed By: #### L 501.5200, L500.2500, L501.2300, L300.3900, L100.0100 #### [facility] [address] [place], [address] CREAT,SERUM Normal 0.70-1.30 [facility] Comment on above: Result Comment: Canc elled via OM: Order cancelled - Patient discharged Performed By: #### L 501.5200, L500.2500, L501.2300, L300.3900, L100.0100 #### [facility] [address] [place], [address] EST GFR Normal >60 [facility] Comment on above: Result Comment: Canc elled via OM: Order cancelled - Patient discharged Performed By: #### L 501.5200, L500.2500, L501.2300, L300.3900, L100.0100 #### [facility] [address] [place], [address] EST GFR - AA Normal >60 [facility] Comment on above: Result Comment: Canc elled via OM: Order cancelled - Patient discharged Performed By: #### L 501.5200, L500.2500, L501.2300, L300.3900, L100.0100 #### [facility] [address] [place], [address] GAP Normal 5-15 [facility] Comment on above: Result Comment: Canc elled via OM: Order cancelled - Patient discharged Performed By: #### L 501.5200, L500.2500, L501.2300, L300.3900, L100.0100 #### [facility] [address] [place], [address] GLU Normal 74-106 [facility] Comment on above: Result Comment: Canc elled via OM: Order cancelled - Patient discharged Performed By: #### L 501.5200, L500.2500, L501.2300, L300.3900, L100.0100 #### [facility] [address] [place], [address] Potassium Normal 3.5-5.1 [facility] Comment on above: Result Comment: Canc elled via OM: Order cancelled - Patient discharged Performed By: #### L 501.5200, L500.2500, L501.2300, L300.3900, L100.0100 #### [facility] [address] [place], [address] Basic Metabolic Profile (BMP) Normal 136-145 [facility] Comment on above: Result Comment: Canc elled via OM: Order cancelled - Patient discharged Performed By: #### L 501.5200, L500.2500, L501.2300, L300.3900, L100.0100 #### [facility] [address] [place], [address] CBC W/Diff, Automatedon 01-2 Absolute Neut Normal 2.0-7.7 [facility] Comment on above: Result Comment: Canc elled via OM: Order cancelled - Patient discharged Performed By: #### L 501.5200, L500.2500, L501.2300, L300.3900, L100.0100 #### [facility] [address] [place], [address] HCT Normal 40-54 [facility] Comment on above: Result Comment: Canc elled via OM: Order cancelled - Patient discharged Performed By: #### L 501.5200, L500.2500, L501.2300, L300.3900, L100.0100 #### [facility] [address] [place], [address] HGB Normal 13.0-16.5 [facility] Comment on above: Result Comment: Canc elled via OM: Order cancelled - Patient discharged Performed By: #### L 501.5200, L500.2500, L501.2300, L300.3900, L100.0100 #### [facility] [address] [place], [address] MCH Normal 27.0-32.0 [facility] Comment on above: Result Comment: Canc elled via OM: Order cancelled - Patient discharged Performed By: #### L 501.5200, L500.2500, L501.2300, L300.3900, L100.0100 #### [facility] [address] [place], [address] MCHC Normal 32-36 [facility] Comment on above: Result Comment: Canc elled via OM: Order cancelled - Patient discharged Performed By: #### L 501.5200, L500.2500, L501.2300, L300.3900, L100.0100 #### [facility] [address] [place], [address] MCV Normal 80-94 [facility] Comment on above: Result Comment: Canc elled via OM: Order cancelled - Patient discharged Performed By: #### L 501.5200, L500.2500, L501.2300, L300.3900, L100.0100 #### [facility] [address] [place], [address] NEUT% Normal 47-70 [facility] Comment on above: Result Comment: Canc elled via OM: Order cancelled - Patient discharged Performed By: #### L 501.5200, L500.2500, L501.2300, L300.3900, L100.0100 #### [facility] [address] [place], [address] PLT Normal 150-450 [facility] Comment on above: Result Comment: Canc elled via OM: Order cancelled - Patient discharged Performed By: #### L 501.5200, L500.2500, L501.2300, L300.3900, L100.0100 #### [facility] [address] [place], [address] RBC Normal 4.6-6.2 [facility] Comment on above: Result Comment: Canc elled via OM: Order cancelled - Patient discharged Performed By: #### L 501.5200, L500.2500, L501.2300, L300.3900, L100.0100 #### [facility] [address] [place], [address] RDW CV Normal 11.6-14.6 [facility] Comment on above: Result Comment: Canc elled via OM: Order cancelled - Patient discharged Performed By: #### L 501.5200, L500.2500, L501.2300, L300.3900, L100.0100 #### [facility] [address] [place], [address] RDW SD Normal 35.1-43.9 [facility] Comment on above: Result Comment: Canc elled via OM: Order cancelled - Patient discharged Performed By: #### L 501.5200, L500.2500, L501.2300, L300.3900, L100.0100 #### [facility] [address] [place], [address] WBC Normal 4.4-11.0 [facility] Comment on above: Result Comment: Canc elled via OM: Order cancelled - Patient discharged Performed By: #### L 501.5200, L500.2500, L501.2300, L300.3900, L100.0100 #### [facility] [address] [place], [address] Prothrombin Time w/INRon INR Normal [facility] Comment on above: Result Comment: Canc elled via OM: Order cancelled - Patient discharged Performed By: #### L 501.5200, L500.2500, L501.2300, L300.3900, L100.0100 #### [facility] [address] [place], [address] PROTIME Normal 11.7-14.9 [facility] Comment on above: Result Comment: Canc elled via OM: Order cancelled - Patient discharged Performed By: #### L 501.5200, L500.2500, L501.2300, L300.3900, L100.0100 #### [facility] [address] [place], [address] Basic Metabolic Profile (BMP )on 05-24-2023 BUN Normal 7-18 [facility] Comment on above: Result Comment: Canc elled via OM: Order cancelled - Patient discharged Performed By: #### L 501.5200, L500.2500, L501.2300, L300.3900, L100.0100 #### [facility] [address] [place], [address] BUN/CRE Normal 10-20 [facility] Comment on above: Result Comment: Canc elled via OM: Order cancelled - Patient discharged Performed By: #### L 501.5200, L500.2500, L501.2300, L300.3900, L100.0100 #### [facility] [address] [place], [address] CA,Total Normal 8.5-10.1 [facility] Comment on above: Result Comment: Canc elled via OM: Order cancelled - Patient discharged Performed By: #### L 501.5200, L500.2500, L501.2300, L300.3900, L100.0100 #### [facility] [address] [place], [address] CL Normal 98-107 [facility] Comment on above: Result Comment: Canc elled via OM: Order cancelled - Patient discharged Performed By: #### L 501.5200, L500.2500, L501.2300, L300.3900, L100.0100 #### [facility] [address] [place], [address] CO2 Normal 21.0-32.0 [facility] Comment on above: Result Comment: Canc elled via OM: Order cancelled - Patient discharged Performed By: #### L 501.5200, L500.2500, L501.2300, L300.3900, L100.0100 #### [facility] [address] [place], [address] CREAT,SERUM Normal 0.70-1.30 [facility] Comment on above: Result Comment: Canc elled via OM: Order cancelled - Patient discharged Performed By: #### L 501.5200, L500.2500, L501.2300, L300.3900, L100.0100 #### [facility] [address] [place], [address] EST GFR Normal >60 [facility] Comment on above: Result Comment: Canc elled via OM: Order cancelled - Patient discharged Performed By: #### L 501.5200, L500.2500, L501.2300, L300.3900, L100.0100 #### [facility] [address] [place], [address] EST GFR - AA Normal >60 [facility] Comment on above: Result Comment: Canc elled via OM: Order cancelled - Patient discharged Performed By: #### L 501.5200, L500.2500, L501.2300, L300.3900, L100.0100 #### [facility] [address] [place], [address] GAP Normal 5-15 [facility] Comment on above: Result Comment: Canc elled via OM: Order cancelled - Patient discharged Performed By: #### L 501.5200, L500.2500, L501.2300, L300.3900, L100.0100 #### [facility] [address] [place], [address] GLU Normal 74-106 [facility] Comment on above: Result Comment: Canc elled via OM: Order cancelled - Patient discharged Performed By: #### L 501.5200, L500.2500, L501.2300, L300.3900, L100.0100 #### [facility] [address] [place], [address] Potassium Normal 3.5-5.1 [facility] Comment on above: Result Comment: Canc elled via OM: Order cancelled - Patient discharged Performed By: #### L 501.5200, L500.2500, L501.2300, L300.3900, L100.0100 #### [facility] [address] [place], [address] Basic Metabolic Profile (BMP) Normal 136-145 [facility] Comment on above: Result Comment: Canc elled via OM: Order cancelled - Patient discharged Performed By: #### L 501.5200, L500.2500, L501.2300, L300.3900, L100.0100 #### [facility] [address] [place], [address] CBC W/Diff, Automatedon - PATH REV Reviewed Normal [facility] Comment on above: Result Comment: Neut rophilic leukocytosis with left shift. Clinical correlation necessary. Shashi Braun M.D. 05/24/23 AMENDED REPORT 05/24/23 1430 PATH REV previously reported as: May foll Performed By: #### L 501.5200, L500.2500, L501.2300, L300.3900, L100.0100 #### [facility] [address] [place], [address] Absolute Neut Normal 2.0-7.7 [facility] Comment on above: Result Comment: Canc elled via OM: Order cancelled - Patient discharged Performed By: #### L 501.5200, L500.2500, L501.2300, L300.3900, L100.0100 #### [facility] [address] [place], [address] HCT Normal 40-54 [facility] Comment on above: Result Comment: Canc elled via OM: Order cancelled - Patient discharged Performed By: #### L 501.5200, L500.2500, L501.2300, L300.3900, L100.0100 #### [facility] [address] [place], [address] HGB Normal 13.0-16.5 [facility] Comment on above: Result Comment: Canc elled via OM: Order cancelled - Patient discharged Performed By: #### L 501.5200, L500.2500, L501.2300, L300.3900, L100.0100 #### [facility] [address] [place], [address] MCH Normal 27.0-32.0 [facility] Comment on above: Result Comment: Canc elled via OM: Order cancelled - Patient discharged Performed By: #### L 501.5200, L500.2500, L501.2300, L300.3900, L100.0100 #### [facility] [address] [place], [address] MCHC Normal 32-36 [facility] Comment on above: Result Comment: Canc elled via OM: Order cancelled - Patient discharged Performed By: #### L 501.5200, L500.2500, L501.2300, L300.3900, L100.0100 #### [facility] [address] [place], [address] MCV Normal 80-94 [facility] Comment on above: Result Comment: Canc elled via OM: Order cancelled - Patient discharged Performed By: #### L 501.5200, L500.2500, L501.2300, L300.3900, L100.0100 #### [facility] [address] [place], [address] NEUT% Normal 47-70 [facility] Comment on above: Result Comment: Canc elled via OM: Order cancelled - Patient discharged Performed By: #### L 501.5200, L500.2500, L501.2300, L300.3900, L100.0100 #### [facility] [address] [place], [address] PLT Normal 150-450 [facility] Comment on above: Result Comment: Canc elled via OM: Order cancelled - Patient discharged Performed By: #### L 501.5200, L500.2500, L501.2300, L300.3900, L100.0100 #### [facility] [address] [place], [address] RBC Normal 4.6-6.2 [facility] Comment on above: Result Comment: Canc elled via OM: Order cancelled - Patient discharged Performed By: #### L 501.5200, L500.2500, L501.2300, L300.3900, L100.0100 #### [facility] [address] [place], [address] RDW CV Normal 11.6-14.6 [facility] Comment on above: Result Comment: Canc elled via OM: Order cancelled - Patient discharged Performed By: #### L 501.5200, L500.2500, L501.2300, L300.3900, L100.0100 #### [facility] [address] [place], [address] RDW SD Normal 35.1-43.9 [facility] Comment on above: Result Comment: Canc elled via OM: Order cancelled - Patient discharged Performed By: #### L 501.5200, L500.2500, L501.2300, L300.3900, L100.0100 #### [facility] [address] [place], [address] WBC Normal 4.4-11.0 [facility] Comment on above: Result Comment: Canc elled via OM: Order cancelled - Patient discharged Performed By: #### L 501.5200, L500.2500, L501.2300, L300.3900, L100.0100 #### [facility] [address] [place], [address] Culture, Blood (WB)on 2023 CUB No growth in 5 days. Normal [facility] Comment on above: Performed By: #### L 501.5200, L500.2500, L501.2300, L300.3900, L100.0100 #### [facility] [address] [place], [address] Prothrombin Time w/INRon INR Normal [facility] Comment on above: Result Comment: Canc elled via OM: Order cancelled - Patient discharged Performed By: #### L 501.5200, L500.2500, L501.2300, L300.3900, L100.0100 #### [facility] [address] [place], [address] PROTIME Normal 11.7-14.9 [facility] Comment on above: Result Comment: Canc elled via OM: Order cancelled - Patient discharged Performed By: #### L 501.5200, L500.2500, L501.2300, L300.3900, L100.0100 #### [facility] [address] [place], [address] Respiratory Cultureon 2023 RESPC List Antibiotics to be Started? vancomycin,zosyn Not obtained in 1 hr, induce w/nebulized 0.9% NaCL Presumptive C albicans Amount Growth Rare Normal [facility] Comment on above: Performed By: #### L 501.5200, L500.2500, L501.2300, L300.3900, L100.0100 #### [facility] [address] [place], [address] Absolute lymphocyte countOrd ered By: Desmond Castaneda on 05-23-2023 Lymphocytes Auto (Unsp spec) [#/Vol] 1.27 10*3/uL 0.83-4.51 [facility] Basic Metabolic Profile (BMP )on 05-23-2023 BUN/CRE 17.0 RATIO Normal 10-20 [facility] Comment on above: Performed By: #### L 501.5200, L500.2500, L501.2300, L300.3900, L100.0100 #### [facility] [address] [place], [address] CA,Total 9.2 mg/dL Normal 8.5-10.1 [facility] Comment on above: Performed By: #### L 501.5200, L500.2500, L501.2300, L300.3900, L100.0100 #### [facility] [address] [place], [address] Chloride [Moles/Vol] 106 mmol/L Normal 98-107 [facility] Comment on above: Performed By: #### L 501.5200, L500.2500, L501.2300, L300.3900, L100.0100 #### [facility] [address] [place], [address] CO2 [Moles/Vol] 27.0 mmol/L Normal 21.0-32.0 [facility] Comment on above: Performed By: #### L 501.5200, L500.2500, L501.2300, L300.3900, L100.0100 #### [facility] [address] [place], [address] Creatinine [Mass/Vol] 0.82 mg/dL Normal 0.70-1.30 [facility] Comment on above: Result Comment: The validity of the calculated GFR GFRAA in patients over 70 years has not been determined. Clinical correlation is essential. Performed By: #### L 501.5200, L500.2500, L501.2300, L300.3900, L100.0100 #### [facility] [address] [place], [address] ECRCL 91.81 ml/min Normal [facility] Comment on above: Performed By: #### L 501.5200, L500.2500, L501.2300, L300.3900, L100.0100 #### [facility] [address] [place], [address] EST GFR - AA 117 mL/min Normal >60 [facility] Comment on above: Result Comment: Afri can [place] GFR Calc Performed By: #### L 501.5200, L500.2500, L501.2300, L300.3900, L100.0100 #### [facility] [address] [place], [address] GAP 4 Low 5-15 [facility] Comment on above: Performed By: #### L 501.5200, L500.2500, L501.2300, L300.3900, L100.0100 #### [facility] [address] [place], [address] GFR/1.73 sq M.predicted among non-blacks MDRD (S/P/Bld) [Vol rate/Area] 96 mL/min/{1.73_m2} Normal >60 [facility] Comment on above: Result Comment: Non- GFR Calc Performed By: #### L 501.5200, L500.2500, L501.2300, L300.3900, L100.0100 #### [facility] [address] [place], [address] Glucose [Mass/Vol] 99 mg/dL Normal 74-106 [facility] Comment on above: Performed By: #### L 501.5200, L500.2500, L501.2300, L300.3900, L100.0100 #### [facility] [address] [place], [address] Potassium [Moles/Vol] 4.4 mmol/L Normal 3.5-5.1 [facility] Comment on above: Performed By: #### L 501.5200, L500.2500, L501.2300, L300.3900, L100.0100 #### [facility] [address] [place], [address] Sodium [Moles/Vol] 137 mmol/L Normal 136-145 [facility] Comment on above: Performed By: #### L 501.5200, L500.2500, L501.2300, L300.3900, L100.0100 #### [facility] [address] [place], [address] Urea nitrogen [Mass/Vol] 14 mg/dL Normal 7-18 [facility] Comment on above: Performed By: #### L 501.5200, L500.2500, L501.2300, L300.3900, L100.0100 #### [facility] [address] [place], [address] Basophil percentageOrdered B y: Desmond Castaneda on 05-23-2023 Basophil percentage Not Reportable [facility] Basophil percentage 3.6 mg/dL 2.5-4.9 [facility] Chloride [Moles/Vol] 106 mmol/L 98-107 [facility] Glucose [Mass/Vol] 99 mg/dL 74-106 [facility] Hemoglobin (Bld) [Mass/Vol] 13.2 g/dL 13.0-16.5 [facility] Neutrophils (Bld) [#/Vol] 14.2 10*3/uL 2.0-7.7 [facility] Potassium [Moles/Vol] 4.4 mmol/L 3.5-5.1 [facility] Sodium [Moles/Vol] 137 mmol/L 136-145 [facility] WBC (Bld) [#/Vol] 18.2 10*3/uL 4.4-11.0 [facility] Blood basophils/100 leukocyt esOrdered By: Desmond Castaneda on 05-23-2023 Basophils/100 WBC (Bld) 1 % 0-1 [facility] Blood eosinophils/100 leukoc ytesOrdered By: Desmond Castaneda on 05-23-2023 Eosinophils/100 WBC (Bld) 4 % 0-5 [facility] Blood leukocytes other/100 l eukocytesOrdered By: Desmond Castaneda on 05-23-2023 WBC other/100 WBC (Bld) 3 % [facility] Blood lymphocytes/100 leukoc ytesOrdered By: Desmond Castaneda on 05-23-2023 Lymphocytes/100 WBC (Bld) 7 % 19-41 [facility] Blood monocytes/100 leukocyt esOrdered By: Desmond Castaneda on 05-23-2023 Monocytes/100 WBC (Bld) 4 % 0-10 [facility] Blood promyelocytes/100 leuk ocytesOrdered By: Desmond Castaneda on 05-23-2023 Promyelocytes/100 WBC (Bld) 2 % 0-0 [facility] Blood segmented neutrophils/ 100 leukocytesOrdered By: Desmond Castaneda on 05-23-2023 Segmented neutrophils/100 WBC (Bld) 78 % 47-70 [facility] Determination of erythrocyte mean corpuscular volume (MCV)Ordered By: Desmond Castaneda on 05-23-2023 MCV (RBC) [Entitic vol] 86.0 fL 80-94 [facility] Erythrocyte distribution wid th ratioOrdered By: Desmond Castaneda on 05-23-2023 Erythrocyte distribution width (RBC) [Ratio] 15.9 % 11.6-14.6 [facility] Erythrocyte distribution wid th standard deviationOrdered By: Desmond Castaneda on 05-23-2023 Erythrocyte distribution width (RBC) [Entitic vol] 49.5 fL 35.1-43.9 [facility] Hematocrit Auto (Bld) [Volum e fraction]Ordered By: Desmond Castaneda on 05-23-2023 Hematocrit (Bld) [Volume fraction] 41.1 % 40-54 [facility] International normalized rat io (INR) calculationOrdered By: Desmond Castaneda on 05-23-2023 INR Coag (PPP) [Relative time] 2.5 {INR} [facility] Laboratory - Chemistry and C hemistry - challengeOrdered By: Desmond Castaneda on 05-23-2023 CO2 [Moles/Vol] 27.0 mmol/L 21.0-32.0 [facility] Magnesium [Mass/Vol] 2.5 mg/dL 1.6-2.6 [facility] Urea nitrogen/Creatinine [Mass ratio] 17.0 mg/mg 10-20 [facility] Laboratory - CoagulationOrde red By: Desmond Castaneda on 05-23-2023 PT Coag (PPP) [Time] 27.1 s 11.7-14.9 [facility] Laboratory - Hematology and Cell countsOrdered By: Desmond Castaneda on 05-23-2023 MCH (RBC) [Entitic mass] 27.6 pg 27.0-32.0 [facility] MCHC (RBC) [Mass/Vol] 32.1 g/dL 32-36 [facility] Myelocytes/100 WBC (Bld) 1 % 0-0 [facility] Platelets (Bld) [#/Vol] 316 10*3/uL 150-450 [facility] Magnesiumon 05-23-2023 Magnesium [Mass/Vol] 2.5 mg/dL Normal 1.6-2.6 [facility] Comment on above: Performed By: #### L 501.5200, L500.2500, L501.2300, L300.3900, L100.0100 #### [facility] Laboratory [address] [place], [address] No Panel InformationOrdered By: Desmond Castaneda on 05-23-2023 Estimated Creatinine Clearance Calc 91.81 ml/min [facility] Estimated GFR (MDRD) Amer 117 mL/min >60 [facility] Comment on above: GFR Calc Estimated GFR (MDRD) Non-Af Amer 96 mL/min >60 [facility] Comment on above: Non- GFR Calc Ovalocyte detectionOrdered B y: Desmond Castaneda on 05-23-2023 Ovalocytes LM Ql (Bld) 1+ [facility] Phosphoruson 05-23-2023 Phosphate [Mass/Vol] 3.6 mg/dL Normal 2.5-4.9 [facility] Comment on above: Performed By: #### L 501.5200, L500.2500, L501.2300, L300.3900, L100.0100 #### [facility] [address] [place], [address] Platelet mean volume Lele-Ec ker (Bld) [Entitic vol]Ordered By: Desmond Castaneda on 05-23-2023 Platelet mean volume (Bld) [Entitic vol] 9.9 fL 6.2-12.0 [facility] Prothrombin Time w/INRon INR Coag (PPP) [Relative time] 2.5 {INR} Normal [facility] Comment on above: Performed By: #### L 501.5200, L500.2500, L501.2300, L300.3900, L100.0100 #### [facility] [address] [place], [address] PT Coag (PPP) [Time] 27.1 s High 11.7-14.9 [facility] Comment on above: Performed By: #### L 501.5200, L500.2500, L501.2300, L300.3900, L100.0100 #### [facility] [address] [place], [address] RBC Auto (Bld) [#/Vol]Ordere d By: Desmond Castaneda on 05-23-2023 RBC (Bld) [#/Vol] 4.78 10*6/uL 4.6-6.2 [facility] Review by pathologistOrdered By: Desmond Castaneda on 05-23-2023 Pathologist review Lele (Unsp spec) [Interp] May foll [facility] Serum or plasma calcium lourdes urement (mass/volume)Ordered By: Desmond Castaneda on 05-23-2023 Calcium [Mass/Vol] 9.2 mg/dL 8.5-10.1 [facility] Serum or plasma creatinine m easurement (mass/volume)Ordered By: Desmond Castaneda on 05-23-2023 Creatinine [Mass/Vol] 0.82 mg/dL 0.70-1.30 [facility] Comment on above: The validity of the calculated GFR & GFRAA in patients over 70 years has not been determined. Clinical correlation is essential. Serum or plasma urea nitroge n measurement (mass/volume)Ordered By: Desmond Castaneda on 05-23-2023 Urea nitrogen [Mass/Vol] 14 mg/dL 7-18 [facility] Teardrop cell detectionOrder ed By: Desmond Castaneda on 05-23-2023 Dacrocytes LM Ql (Bld) 1+ [facility] Thin prep Papanicolaou smear with manual screeningOrdered By: Desmond Castaneda on 05-23-2023 Thin prep Papanicolaou smear with manual screening 4 5-15 [facility] Total cell countOrdered By: Desmond Castaneda on 05-23-2023 Cells counted Molgen (Bld/Tiss) [#] 100 MANUAL DIFF [facility] Basic Metabolic Profile (BMP )on 05-22-2023 BUN/CRE 17.3 RATIO Normal 10-20 [facility] Comment on above: Performed By: #### L 500.2500, L100.0500 #### [facility] [address] [place], [address] CA,Total 8.4 mg/dL Low 8.5-10.1 [facility] Comment on above: Performed By: #### L 500.2500, L100.0500 #### [facility] [address] [place], [address] Chloride [Moles/Vol] 108 mmol/L High 98-107 [facility] Comment on above: Performed By: #### L 500.2500, L100.0500 #### [facility] [address] [place], [address] CO2 [Moles/Vol] 27.0 mmol/L Normal 21.0-32.0 [facility] Comment on above: Performed By: #### L 500.2500, L100.0500 #### [facility] [address] [place], [address] Creatinine [Mass/Vol] 0.75 mg/dL Normal 0.70-1.30 [facility] Comment on above: Result Comment: The validity of the calculated GFR GFRAA in patients over 70 years has not been determined. Clinical correlation is essential. Performed By: #### L 500.2500, L100.0500 #### [facility] [address] [place], [address] ECRCL 93.67 ml/min Normal [facility] Comment on above: Performed By: #### L 500.2500, L100.0500 #### [facility] [address] [place], [address] EST GFR - AA 129 mL/min Normal >60 [facility] Comment on above: Result Comment: Afri can Pakistani GFR Calc Performed By: #### L 500.2500, L100.0500 #### [facility] [address] [place], [address] GAP 4 Low 5-15 [facility] Comment on above: Performed By: #### L 500.2500, L100.0500 #### [facility] [address] [place], [address] GFR/1.73 sq M.predicted among non-blacks MDRD (S/P/Bld) [Vol rate/Area] 107 mL/min/{1.73_m2} Normal >60 [facility] Comment on above: Result Comment: Non- GFR Calc Performed By: #### L 500.2500, L100.0500 #### [facility] [address] [place], [address] Glucose [Mass/Vol] 102 mg/dL Normal 74-106 [facility] Comment on above: Result Comment: Fast ing Glucose result from 100 to 125 mg/dL suggests IMPAIRED HOMEOSTASIS per A.D.A. criteria. Performed By: #### L 500.2500, L100.0500 #### [facility] [address] [place], [address] Potassium [Moles/Vol] 4.1 mmol/L Normal 3.5-5.1 [facility] Comment on above: Performed By: #### L 500.2500, L100.0500 #### [facility] [address] [place], [address] Sodium [Moles/Vol] 139 mmol/L Normal 136-145 [facility] Comment on above: Performed By: #### L 500.2500, L100.0500 #### [facility] [address] [place], [address] Urea nitrogen [Mass/Vol] 13 mg/dL Normal 7-18 [facility] Comment on above: Performed By: #### L 500.2500, L100.0500 #### [facility] [address] [place], [address] CBC W/Diff, Automatedon 05-02 [facility] REV Reviewed Normal [facility] Comment on above: Result Comment: Neut rophilic leukocytosis with left shift. Clinical correlation necessary. Shashi Braun M.D. 05/22/23 AMENDED REPORT 05/22/23 1418 PATH REV previously reported as: Annabel sharpe Performed By: #### L 300.3900, L501.5200, L100.0100, L501.9520, L500.4050, L501.2300 ####[facility] [id number] [place], [address] CBC-Complete Blood Cnt No Di ffon 05-22-2023 Erythrocyte distribution width (RBC) [Ratio] 16.2 % High 11.6-14.6 [facility] Comment on above: Performed By: #### L 500.2500, L100.0500 #### [facility] [address] [place], [address] Hematocrit (Bld) [Volume fraction] 38.8 % Low 40-54 [facility] Comment on above: Performed By: #### L 500.2500, L100.0500 #### [facility] [address] [place], [address] Hemoglobin (Bld) [Mass/Vol] 12.1 g/dL Low 13.0-16.5 [facility] Comment on above: Performed By: #### L 500.2500, L100.0500 #### [facility] [address] [place], [address] MCH (RBC) [Entitic mass] 27.1 pg Normal 27.0-32.0 [facility] Comment on above: Performed By: #### L 500.2500, L100.0500 #### [facility] [address] [place], [address] MCHC (RBC) [Mass/Vol] 31.2 g/dL Low 32-36 [facility] Comment on above: Performed By: #### L 500.2500, L100.0500 #### [facility] [address] [place], [address] MCV (RBC) [Entitic vol] 86.8 fL Normal 80-94 [facility] Comment on above: Performed By: #### L 500.2500, L100.0500 #### [facility] [address] [place], [address] Platelet mean volume (Bld) [Entitic vol] 9.9 fL Normal 6.2-12.0 [facility] Comment on above: Performed By: #### L 500.2500, L100.0500 #### [facility] [address] [place], [address] Platelets (Bld) [#/Vol] 258 10*3/uL Normal 150-450 [facility] Comment on above: Performed By: #### L 500.2500, L100.0500 #### [facility] [address] [place], [address] RBC (Bld) [#/Vol] 4.47 10*6/uL Low 4.6-6.2 [facility] Comment on above: Performed By: #### L 500.2500, L100.0500 #### [facility] [address] [place], [address] RDW SD 51.7 fl High 35.1-43.9 [facility] Comment on above: Performed By: #### L 500.2500, L100.0500 #### [facility] [address] [place], [address] WBC (Bld) [#/Vol] 15.3 10*3/uL High 4.4-11.0 [facility] Comment on above: Performed By: #### L 500.2500, L100.0500 #### [facility] [address] [place], [address] Echo Transesophageal (EDGAR)on 05-22-2023 Echo Transesophageal (EDGAR) [facility] [address] [place] [address] Echo Transesophageal (EDGAR) 05/22/23 1232 MR#: [id number] Acct: [id number] Name: JUAQUIN KHALIL Rep #: [id number] : 1945 77 From: Moreno Bob MD Attending Dr: Dr. Desmond Castaneda MD Status: ADM IN Ordering Dr: Moreno Bob MD Date: 05/22/23 Location: [facility] Sex: M C Admitted: 05/19/23 Reason For Study: Valve Replacement Eval Medication EDGAR probe 6VT-D (SN 137381) passed without difficulty. No complications were noted. Cetacaine Topical [place] given X3 orally. Versed 2 mg given slow IVP. Fentanyl 50 mcg given slow IVP. Performed a rapid injection of agitated mix of 9 cc saline and 1cc air to assess for atrial septal defect. Left Ventricle Normal LV size. Left ventricular systolic function is normal. The estimated ejection fraction is 60 %. No regional wall motion abnormalities noted. Right Ventricle Normal RV size. Normal systolic function. Atria Normal atrial septum. Bubble contrast study negative for right to left interatrial shunt. The left atrium is mildly enlarged. No thrombus is detected in the left atrial appendage. The right atrium is mildly enlarged. Mitral Valve Normal mitral valve. Mild (1+) eccentric mitral valve insufficiency. Tricuspid Valve Normal tricuspid valve. Mild tricuspid valve insufficiency. Aortic Valve Bileaflet mechanical aortic valve. Valve thickening noted but with no obvious vegetation. Pulmonic Valve Normal pulmonic valve. Vessels Normal aortic root. Normal arch. The pulmonary artery is normal size. Pericardium No pericardial effusion. ECHO/Echo Transesophageal (EDGAR) Interpretation Summary Normal LV size. Left ventricular systolic function is normal. The estimated ejection fraction is 60 %. The left atrium is mildly enlarged. No thrombus is detected in the left atrial appendage. Bileaflet mechanical aortic valve. Valve thickening noted but with no obvious vegetation. Ordering Physician: Moreno Bob Referring Physician: [facility] Performed By: Kandace Ayoub, RDCS, RVT 05/22/23 145 Date Moreno Bob MD CC: Dr. Moreno Bob MD; Dr. Desmond Castaneda MD; [facility] Date Dictated: 05/22/23 1232 Date Transcribed: 05/22/231458 Lumber Piler: Signed Normal [facility] Gram Stainon 05-22-2023 GS List Antibiotics to be Started? vancomycin,zosyn Not obtained in 1 hr, induce w/nebulized 0.9% NaCL Acceptable Specimen? Yes (<25 Epithelial cells per/lpf) Gram Stain 3+ White Blood Cells 1+ Epithelial cells 1+ Gram positive cocci Rare Gram positive rods Normal [facility] Comment on above: Performed By: #### L 501.5200, L500.2500, L501.2300, L300.3900, L100.0100 #### [facility] Laboratory [address] [place], [address] Prothrombin Time w/INRon INR Coag (PPP) [Relative time] 2.3 {INR} [facility] Comment on above: Performed By: #### L 501.5200, L500.2500, L501.2300, L300.3900, L100.0100 #### [facility] [address] [place], [address] PT Coag (PPP) [Time] 25.2 s High 11.7-14.9 [facility] Comment on above: Performed By: #### L 501.5200, L500.2500, L501.2300, L300.3900, L100.0100 #### [facility] [address] [place], [address] Serum or plasma trough vanco mycin levelOrdered By: Jaya Patel on 01-22-2024 Vancomycin trough [Mass/Vol] 24.4 ug/mL 5.0-15.0 [facility] Comment on above: VANCOMYCIN STANDARED DRUG THERAPY TROUGH LEVEL: 5.0 - 15.0 mg/L VANCOMYCIN HIGH INTENSITY THERAPY TROUGH LEVEL: 15.0 - 20.0 mg/L High Intensity therapy recommended for serious lifethreatening infections include:- Pydkmxfpgg-Fdhauylcumlu-Llagnwaoc (Ventilator/Healtcare Associated)-Sepsis PLEASE CONTACT PHARMACY SERVICES (#[id number]) FOR INTERPRETATIONOF RESULTS. Serum or plasma vancomycin m easurement (mass/volume)Ordered By: Desmond Castaneda on 05-22-2023 Vancomycin [Mass/Vol] 14.9 ug/mL 0.0-15.0 [facility] Comment on above: VANCOMYCIN STANDARD DRUG THERAPY: CRITICAL VALUE IS > 15.0 mg/L VANCOMYCIN HIGH INTENSITY THERAPY: CRITICAL VALUE IS > 20.0 mg/L PLEASE CONTACT PHARMACY SERVICES (#[id number]) FOR INTERPRETATIONOF RESULTS. THIS RESULT DOES NOT REPRESENT A PEAK OR TROUGHLEVEL FOR THIS DRUG. Vancomycin, Random Levelon 0 05-22-2023 VANCO, RANDOM 14.9 ug/mL Normal 0.0-15.0 [facility] Comment on above: Result Comment: VANC OMYCIN STANDARD DRUG THERAPY: CRITICAL VALUE IS > 15.0 mg/L VANCOMYCIN HIGH INTENSITY THERAPY: CRITICAL VALUE IS > 20.0 mg/L PLEASE CONTACT PHARMACY SERVICES (#[id number]) FOR INTERPRETATION OF RESULTS. THIS RESULT DOES NOT REPRESENT A PEAK OR TROUGH LEVEL FOR THIS DRUG. Performed By: #### L 501.5200, L500.2500, L501.2300, L300.3900, L100.0100 #### [facility] [address] [place], [address] Vancomycin, Trough Levelon 0 05-22-2023 VANCO, TROUGH 24.4 ug/mL High 5.0-15.0 [facility] Comment on above: Order Comment: Comme nts: DRAW 30 MIN PRIOR TO [id number] Result Comment: VANC OMYCIN STANDARED DRUG THERAPY TROUGH LEVEL: 5.0 - 15.0 mg/L VANCOMYCIN HIGH INTENSITY THERAPY TROUGH LEVEL: 15.0 - 20.0 mg/L High Intensity therapy recommended for serious life threatening infections include: - Meningitis -Endocarditis -Pneumonia (Ventilator/Healtcare Associated) -Sepsis PLEASE CONTACT PHARMACY SERVICES (#[id number]) FOR INTERPRETATION OF RESULTS. Performed By: #### L 501.5200, L500.2500, L501.2300, L300.3900, L100.0100 #### [facility] [address] [place], [address] Basic Metabolic Profile (BMP )on 05-21-2023 BUN/CRE 17.8 RATIO Normal 10-20 [facility] Comment on above: Performed By: #### L 100.0500, L500.2500 ####[facility] [address] [place], [address] CA,Total 8.8 mg/dL Normal 8.5-10.1 [facility] Comment on above: Performed By: #### L 100.0500, L500.2500 ####[facility] [address] [place], [address] Chloride [Moles/Vol] 108 mmol/L High 98-107 [facility] Comment on above: Performed By: #### L 100.0500, L500.2500 ####[facility] [address] [place], [address] CO2 [Moles/Vol] 28.0 mmol/L Normal 21.0-32.0 [facility] Comment on above: Performed By: #### L 100.0500, L500.2500 ####[facility] [address] [place], [address] Creatinine [Mass/Vol] 0.73 mg/dL Normal 0.70-1.30 [facility] Comment on above: Result Comment: The validity of the calculated GFR GFRAA in patients over 70 years has not been determined. Clinical correlation is essential. Performed By: #### L 100.0500, L500.2500 ####[facility] [address] [place], [address] ECRCL 93.93 ml/min Normal [facility] Comment on above: Performed By: #### L 100.0500, L500.2500 ####[facility] [address] [place], [address] EST GFR - AA 134 mL/min Normal >60 [facility] Comment on above: Result Comment: Afri can Pakistani GFR Calc Performed By: #### L 100.0500, L500.2500 ####[facility] [address] [place], [address] GAP 3 Low 5-15 [facility] Comment on above: Performed By: #### L 100.0500, L500.2500 ####[facility] [address] [place], [address] GFR/1.73 sq M.predicted among non-blacks MDRD (S/P/Bld) [Vol rate/Area] 111 mL/min/{1.73_m2} Normal >60 [facility] Comment on above: Result Comment: Non- GFR Calc Performed By: #### L 100.0500, L500.2500 ####[facility] [address] [place], [address] Glucose [Mass/Vol] 105 mg/dL Normal 74-106 [facility] Comment on above: Result Comment: Fast ing Glucose result from 100 to 125 mg/dL suggests IMPAIRED HOMEOSTASIS per A.D.A. criteria. Performed By: #### L 100.0500, L500.2500 ####[facility] [address] [place], [address] Potassium [Moles/Vol] 4.1 mmol/L Normal 3.5-5.1 [facility] Comment on above: Performed By: #### L 100.0500, L500.2500 ####[facility] [address] [place], [address] Sodium [Moles/Vol] 139 mmol/L Normal 136-145 [facility] Comment on above: Performed By: #### L 100.0500, L500.2500 ####[facility] [address] [place], [address] Urea nitrogen [Mass/Vol] 13 mg/dL Normal 7-18 [facility] Comment on above: Performed By: #### L 100.0500, L500.2500 ####[facility] [address] [place], [address] CBC-Complete Blood Cnt No Di ffon 05-21-2023 Erythrocyte distribution width (RBC) [Ratio] 16.2 % High 11.6-14.6 [facility] Comment on above: Performed By: #### L 100.0500, L500.2500 ####[facility] [address] [place], [address] Hematocrit (Bld) [Volume fraction] 36.8 % Low 40-54 [facility] Comment on above: Performed By: #### L 100.0500, L500.2500 ####[facility] [address] [place], [address] Hemoglobin (Bld) [Mass/Vol] 11.6 g/dL Low 13.0-16.5 [facility] Comment on above: Performed By: #### L 100.0500, L500.2500 ####[facility] [address] [place], [address] MCH (RBC) [Entitic mass] 27.4 pg Normal 27.0-32.0 [facility] Comment on above: Performed By: #### L 100.0500, L500.2500 ####[facility] [address] [place], [address] MCHC (RBC) [Mass/Vol] 31.5 g/dL Low 32-36 [facility] Comment on above: Performed By: #### L 100.0500, L500.2500 ####[facility] [address] [place], [address] MCV (RBC) [Entitic vol] 86.8 fL Normal 80-94 [facility] Comment on above: Performed By: #### L 100.0500, L500.2500 ####[facility] [address] [place], [address] Platelet mean volume (Bld) [Entitic vol] 10.3 fL Normal 6.2-12.0 [facility] Comment on above: Performed By: #### L 100.0500, L500.2500 ####[facility] [address] [place], [address] Platelets (Bld) [#/Vol] 241 10*3/uL Normal 150-450 [facility] Comment on above: Performed By: #### L 100.0500, L500.2500 ####[facility] [address] [place], [address] RBC (Bld) [#/Vol] 4.24 10*6/uL Low 4.6-6.2 [facility] Comment on above: Performed By: #### L 100.0500, L500.2500 ####[facility] [address] [place], [address] RDW SD 51.5 fl High 35.1-43.9 [facility] Comment on above: Performed By: #### L 100.0500, L500.2500 ####[facility] [address] [place], [address] WBC (Bld) [#/Vol] 15.8 10*3/uL High 4.4-11.0 [facility] Comment on above: Performed By: #### L 100.0500, L500.2500 ####[facility] [address] [place], [address] Consultation - Cardiologyon 05-21-2023 Consultation - Cardiology [facility] Medical Records Department [address] [place] [address] Consultation - Cardiology 05/21/23 1304 MR#: [id number] Acct: [id number] Name: JUAQUIN KHALIL Rep #: [id number] : 1945 77 From: Chester Montano MD [place] Status:ADM IN Location: [place] [address] Assessment Plan Assessment/Plan (1) Hypoxia: (2) Leukocytosis: (3) CHF exacerbation: QUALIFIERS: Heart failure type: unspecified Qualified Code(s): I50.9 - Heart failure, unspecified (4) Pneumonia: QUALIFIERS: Pneumonia type: due to unspecified organism Laterality: bilateral Lung location: unspecified part of lung Qualified Code(s): J18.9 - Pneumonia, unspecified organism (5) Aortic valve mass: PLAN: Plan 77-year-old patient presented to the hospital through the ER with cough and shortness of breath Noted he had hypoxia Clinical diagnosis of pneumonia, responded to IV antibiotic Symptoms improving, no further symptoms of cough he does not have any active chest pain From cardiac standpoint patient has a heart failure preserved EF/HFpEF, mechanical aortic valve done at [facility], history of atrial fibrillation. The echocardiographic evaluation/TTE/ showed hyperechogenic mass noted in the aortic valve area could represent calcification. EF within normal and no significant valvular regurgitant However need to rule out vegetation based on history and current presentation with leukocytosis. Attempted prior EDGAR was not successful Cardiac care plan recommendation 77-year-old patient who presented with shortness of breath and hypoxia with a clinical diagnosis of pneumonia improving on the current treatment with IV antibiotic Patient has been on antibiotic with vancomycin and piperacillin. 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 There are no clinical signs of endocarditis and patient is responding to antibiotic treatment for the clinical diagnosis of pneumonia. Other cardiac problem include chronic A-fib with a history of mechanical aortic valve patient currently on Coumadin History of CAD with coronary artery stent hypertension hyperlipidemia and has been on statin aspirin nitrate and beta-yusra metoprolol. Cardiology team to continue monitoring and follow-up clinically. I requested 2 sets of blood cultures and sed rate. Will keep the patient n.p.o. for midnight for possible EDGAR in a.m. Explained the indication for a EDGAR to the patient as well as to the and family and nursing staff Will continue to monitor and follow-up clinically and he will be seen by the cardiac team. HPI Consult Data Date of Consult: 05/21/23 HPI Narrative Reason for Consultation: Patient with mechanical aortic valve/leukocytosis HPI Narrative: JUAQUIN KHALIL, is a 77 M who presents [facility] Medical History Back pain Cardiology follow-up encounter Excessive bleeding FH: bilateral hip replacements Former smoker Gastric reflux High cholesterol History of echocardiogram History of edema History of IBS History of pain when walking History of stress test Leg cramps Migraine headache Shortness of breath on exertion Sleep apnea Stroke/cerebrovascular accident Thyroid disease Wears hearing aid Home Medications warfarin 4 mg tablet (Jantoven) 4 mg PO SUTUWETHSA A.FIB 04/03/16 [History Last Taken 01/08/23] allopurinol 100 mg tablet 100 mg PO DAILYCM 04/04/16 [History Last Taken 05/18/23] atorvastatin 40 mg tablet 80 mg PO DAILY 04/04/16 [History Last Taken 05/18/23] ferrous sulfate 325 mg (65 mg iron) tablet 325 mg PO DAILY 04/04/16 [History Last Taken 05/18/23] isosorbide mononitrate 30 mg tablet,extended release 24 hr 30 mg PO DAILY 04/04/16 [History Last Taken 05/18/23] levothyroxine 25 mcg tablet 50 mcg PO DAILY 04/04/16 [History Last Taken 05/18/23] metoprolol tartrate 25 mg tablet 25 mg PO DAILY 04/04/16 [History Last Taken 05/18/23] pantoprazole 40 mg tablet,delayed release 40 mg PO BID 04/04/16 [History Last Taken 05/18/23] gabapentin 300 mg capsule 300 mg PO DAILY 01/10/20 [History Last Taken 05/18/23] tamsulosin 0.4 mg capsule 0.4 mg PO DAILY 07/09/22 [History Last Taken 05/18/23] aspirin 81 mg capsule 81 mg PO DAILY blood thinner 01/10/23 [History Last Taken 05/18/23] finasteride 5 mg tablet 5 mg PO DAILY 05/18/23 [History Last Taken 05/18/23] warfarin 2 mg tablet (Jantoven) 2 mg PO DAILY A.FIB 05/19/23 [History Last Taken Unknown] Allergy/AdvReac Type Severity Reaction Status Date / Time hydrocodone bitartrate Allergy Other Verified 05/18/23 17:58 [From Vicodin] Surgical History History of card (more content not included)... Normal [facility] Erythrocyte Sed Rateon 05-21 SED RATE 14 mm/hr Normal 0-20 [facility] Comment on above: Performed By: #### L 501.5200, L500.2500, L501.2300, L300.3900, L100.0100 #### [facility] Laboratory [address] [place], [address] Erythrocyte sedimentation ra teOrdered By: Chester Montano on 05-21-2023 ESR (Bld) [Velocity] 14 mm/h 0- [facility] Gram stain for investigation of transfusion reactionOrdered By: Desmond Coyle on 05-21-2023 Microscopic observation Gram stain Nom (Unsp spec) [facility] Basic Metabolic Profile (BMP )on 05-20-2023 BUN/CRE 18.8 RATIO Normal - [facility] Comment on above: Performed By: #### L 501.5200, L500.2500, L501.2300, L300.3900, L100.0100 #### [facility] [address] [place], [address] CA,Total 8.9 mg/dL Normal 8.5-10.1 [facility] Comment on above: Performed By: #### L 501.5200, L500.2500, L501.2300, L300.3900, L100.0100 #### [facility] [address] [place], [address] Chloride [Moles/Vol] 104 mmol/L Normal 98-107 [facility] Comment on above: Performed By: #### L 501.5200, L500.2500, L501.2300, L300.3900, L100.0100 #### [facility] [address] [place], [address] CO2 [Moles/Vol] 30.0 mmol/L Normal 21.0-32.0 [facility] Comment on above: Performed By: #### L 501.5200, L500.2500, L501.2300, L300.3900, L100.0100 #### [facility] [address] [place], [address] Creatinine [Mass/Vol] 0.69 mg/dL Low 0.70-1.30 [facility] Comment on above: Result Comment: The validity of the calculated GFR GFRAA in patients over 70 years has not been determined. Clinical correlation is essential. Performed By: #### L 501.5200, L500.2500, L501.2300, L300.3900, L100.0100 #### [facility] [address] [place], [address] ECRCL 94.06 ml/min Normal [facility] Comment on above: Performed By: #### L 501.5200, L500.2500, L501.2300, L300.3900, L100.0100 #### [facility] [address] [place], [address] EST GFR - AA 142 mL/min Normal >60 [facility] Comment on above: Result Comment: Afri can Pakistani GFR Calc Performed By: #### L 501.5200, L500.2500, L501.2300, L300.3900, L100.0100 #### [facility] [address] [place], [address] GAP 3 Low 5-15 [facility] Comment on above: Performed By: #### L 501.5200, L500.2500, L501.2300, L300.3900, L100.0100 #### [facility] [address] [place], [address] GFR/1.73 sq M.predicted among non-blacks MDRD (S/P/Bld) [Vol rate/Area] 118 mL/min/{1.73_m2} Normal >60 [facility] Comment on above: Result Comment: Non- GFR Calc Performed By: #### L 501.5200, L500.2500, L501.2300, L300.3900, L100.0100 #### [facility] [address] [place], [address] Glucose [Mass/Vol] 107 mg/dL High 74-106 [facility] Comment on above: Result Comment: Fast ing Glucose result from 100 to 125 mg/dL suggests IMPAIRED HOMEOSTASIS per A.D.A. criteria. Performed By: #### L 501.5200, L500.2500, L501.2300, L300.3900, L100.0100 #### [facility] [address] [place], [address] Potassium [Moles/Vol] 3.6 mmol/L Normal 3.5-5.1 [facility] Comment on above: Performed By: #### L 501.5200, L500.2500, L501.2300, L300.3900, L100.0100 #### [facility] [address] [place], [address] Sodium [Moles/Vol] 137 mmol/L Normal 136-145 [facility] Comment on above: Performed By: #### L 501.5200, L500.2500, L501.2300, L300.3900, L100.0100 #### [facility] [address] [place], [address] Urea nitrogen [Mass/Vol] 13 mg/dL Normal 7-18 [facility] Comment on above: Performed By: #### L 501.5200, L500.2500, L501.2300, L300.3900, L100.0100 #### [facility] [address] [place], [address] CBC-Complete Blood Cnt No Di ffon 05-20-2023 Erythrocyte distribution width (RBC) [Ratio] 16.3 % High 11.6-14.6 [facility] Comment on above: Performed By: #### L 501.5200, L500.2500, L501.2300, L300.3900, L100.0100 #### [facility] [address] [place], [address] Hematocrit (Bld) [Volume fraction] 39.9 % Low 40-54 [facility] Comment on above: Performed By: #### L 501.5200, L500.2500, L501.2300, L300.3900, L100.0100 #### [facility] [address] [place], [address] Hemoglobin (Bld) [Mass/Vol] 12.6 g/dL Low 13.0-16.5 [facility] Comment on above: Performed By: #### L 501.5200, L500.2500, L501.2300, L300.3900, L100.0100 #### [facility] [address] [place], [address] MCH (RBC) [Entitic mass] 27.8 pg Normal 27.0-32.0 [facility] Comment on above: Performed By: #### L 501.5200, L500.2500, L501.2300, L300.3900, L100.0100 #### [facility] [address] [place], [address] MCHC (RBC) [Mass/Vol] 31.6 g/dL Low 32-36 [facility] Comment on above: Performed By: #### L 501.5200, L500.2500, L501.2300, L300.3900, L100.0100 #### [facility] [address] [place], [address] MCV (RBC) [Entitic vol] 88.1 fL Normal 80-94 [facility] Comment on above: Performed By: #### L 501.5200, L500.2500, L501.2300, L300.3900, L100.0100 #### [facility] [address] [place], [address] Platelet mean volume (Bld) [Entitic vol] 10.5 fL Normal 6.2-12.0 [facility] Comment on above: Performed By: #### L 501.5200, L500.2500, L501.2300, L300.3900, L100.0100 #### [facility] [address] [place], [address] Platelets (Bld) [#/Vol] 256 10*3/uL Normal 150-450 [facility] Comment on above: Performed By: #### L 501.5200, L500.2500, L501.2300, L300.3900, L100.0100 #### [facility] [address] [place], [address] RBC (Bld) [#/Vol] 4.53 10*6/uL Low 4.6-6.2 [facility] Comment on above: Performed By: #### L 501.5200, L500.2500, L501.2300, L300.3900, L100.0100 #### [facility] [address] [place], [address] RDW SD 52.5 fl High 35.1-43.9 [facility] Comment on above: Performed By: #### L 501.5200, L500.2500, L501.2300, L300.3900, L100.0100 #### [facility] [address] [place], [address] WBC (Bld) [#/Vol] 17.3 10*3/uL High 4.4-11.0 [facility] Comment on above: Performed By: #### L 501.5200, L500.2500, L501.2300, L300.3900, L100.0100 #### [facility] [address] [place], [address] Chest PA and Lateralon 05-20 Chest PA and Lateral [facility] Imaging Services [address] [place] [address] Chest PA and Lateral MR#: [id number] Acct: [id number] Name: JUAQUIN KHALIL Rep #: [id number] : 1945 M 77 From: Sushil Yen PCP: [place] Status: ADM IN Study: Chest PA and Lateral Date of Exam: 05/20/23 Exam# [id number] Ordering Dr: Desmond Owen DO [id number] EXAM: XR CHEST, 2 VIEWS CLINICAL INDICATION: Pneumonia-486 TECHNIQUE: Frontal and lateral views of the chest. COMPARISON: 05/18/2023. FINDINGS: LUNGS AND PLEURAL SPACES: Unremarkable. No consolidation or edema. No pneumothorax. No effusion. HEART: Stable mild cardiomegaly. MEDIASTINUM: Central airways and mediastinal contour are unremarkable. BONES/JOINTS: Sternal wires. No acute fracture. SOFT TISSUES: Unremarkable. VASCULATURE: Aortic valvuloplasty. RAD/Chest PA and Lateral IMPRESSION: 1. Stable mild cardiomegaly. 2. No acute cardiopulmonary abnormality. Electronically Signed: Sushil Hancock MD at 7:06 EST , CC: Dr. Desmond Owen DO; [facility] Lumber Piler: Signed Normal [facility] Echo Complete W/ Contraston 05-20-2023 Echo Complete W/ Contrast [facility] Cardi[facility] Services [address] [place] [address] Echo Complete W/ Contrast 05/20/23 0926 MR#: [id number] Acct: [id number] Name: JUAQUIN KHALIL Rep #: [id number] : 1945 77 From: Chester Montano MD Attending Dr: Dr. Jaya Patel, Status : ADM IN Ordering Dr: Constantino Albarado DO Date: 05/20/23 Location: [facility] Sex: M C Admitted: 05/19/23 Reason For Study: CHF Procedure This was a 2D Doppler, Color Flow transthoracic echocardiogram. Contrast injection was performed. Exam performed portable in patient room. Left Ventricle Normal left ventricle. The estimated ejection fraction is 55-60 %. Right Ventricle Normal right ventricle. Normal systolic function. Atria Normal left atrium. Normal right atrium. Mitral Valve The mitral valve is structurally normal. No prolapse or stenosis seen. Tricuspid Valve Normal tricuspid valve. Aortic Valve Moerate size Hyperechogenic structure noted on Mechanical AV. Trivial aortic valve insufficiency. Pulmonic Valve The pulmonic valve is not well visualized. Great Vessels Normal aortic root. Medication Diluted definity 2.5ml given slow IV push to enhance endocardial definition. MMode/2D Measurements Calculations LVIDd: 3.9 cm IVSd: 1.3 cm LVOT diam: 2.0 cm LVIDs: 2.4 cm LVPWd: 1.5 cm LVOT area: 3.3 cm2 RVDd: 4.1 cm FS: 38.4 % ___ Ao root diam: 3.3 cm LAV(MOD-bp): 90.8 ml LVAd ap4: 37.3 cm2 LAV(MOD-bp) Indexed: 40.4 ml/m2 LVLd ap4: 8.2 cm LAV(MOD-sp2): 81.7 ml EDV(MOD-sp4): 136.7 ml LAV(MOD-sp4): 91.3 ml EDV(sp4-el): 144.8 ml LVAs ap4: 20.5 cm2 LVLs ap4: 7.6 cm ESV(MOD-sp4): 48.0 ml ESV(sp4-el): 47.2 ml EF(MOD-sp4): 64.9 % EF(sp4-el): 67.4 % ___ SV(MOD-sp4): 88.7 ml SV(sp4-el): 97.7 ml LA A4 area: 29.2 cm2 ___ LA dimension(2D): 5.5 cm RA A4 area: 24.0 cm2 TAPSE: 1.9 cm Doppler Measurements Calculations MV E max elza: 113.8 cm/sec Lat Peak E' Elza: 11.7 cm/sec Med Peak E' Elza: 8.5 cm/sec E/E' lat: 9.7 E/E' med: 13.3 ___ MV V2 max: 119.6 cm/sec Ao V2 max: 320.1 cm/sec LV V1 max: 137.2 cm/sec MV max P.7 mmHg Ao max P.4 mmHg LV V1 max P.5 mmHg MV V2 mean: 59.1 cm/sec Ao V2 mean: 230.7 cm/sec LV V1 mean P.2 mmHg MV mean P.9 mmHg Ao mean P.2 mmHg LV V1 mean: 111.3 cm/sec MV V2 VTI: 33.0 cm Ao V2 VTI: 67.2 cm LV V1 VTI: 31.8 cm AV (velocity ratio): 0.47 MVA(VTI): 3.1 cm2 NONA(I,D): 1.5 cm2 NONA(V,D): 1.4 cm2 ___ SV(LVOT): 103.3 ml PA V2 max: 99.8 cm/sec TR max elza: 307.7 cm/sec TR max P.9 mmHg ECHO/Echo Complete W/ Contrast Interpretation Summary The estimated ejection fraction is 55-60 %. Moerate size Hyperechogenic structure noted on Mechanical AV Recommendation: Consider EDGAR ,Evaluation Ordering Physician: Constantino Albarado Referring Physician: [facility] Performed By: Kandace Ayoub, DONALD, RVT 05/20/23 1203 Date Chester Montano MD CC: Dr. Jaya Patel DO; Dr. Constantino lAbarado DO; [facility] Date Dictated: 05/20/23925 Date Transcribed: 05/20/23 1203 Lumber Piler: Signed Normal [facility] BNP,B-Type NATRIURETIC PEPTI Jacquie 05-19-2023 Natriuretic peptide B (Bld) [Mass/Vol] 419.5 pg/mL High 0-100 [facility] Comment on above: Performed By: #### L 503.6620 ####[facility] [address] [place], [address] Basophil percentageOrdered B y: Desmond Coyle on 05-19-2023 Bilirubin [Mass/Vol] 1.30 mg/dL 0.20-1.00 [facility] Comment on above: For patients on eltr ombopag therapy, use of Dimension [place] TBIL is not recommended. Protein [Mass/Vol] 6.4 g/dL 6.4-8.2 [facility] CBC W/Diff, Automatedon 05-01 PATH REV Reviewed Normal [facility] Comment on above: Result Comment: Neut rophilic leukocytosis with left shift. Clinical correlation necessary. Shashi Braun M.D. 05/19/23 AMENDED REPORT 05/19/23 1502 PATH REV previously reported as: August Performed By: #### L 501.4020, L100.0100, L500.2500, L503.6620 ####[facility] [address] [place], [address] Comprehensive Metabolic Prof ilon 05-19-2023 Albumin [Mass/Vol] 3.2 g/dL Normal 3.2-5.0 [facility] Comment on above: Performed By: #### L 300.3900, L501.5200, L100.0100, L501.9520, L500.4050, L501.2300 ####[facility] [address] [place], [address] Albumin/Globulin [Mass ratio] 1.0 {ratio} Normal 0.9-2.4 [facility] Comment on above: Performed By: #### L 300.3900, L501.5200, L100.0100, L501.9520, L500.4050, L501.2300 ####[facility] [address] [place], [address] ALK P 220 U/L High 45-117 [facility] Comment on above: Performed By: #### L 300.3900, L501.5200, L100.0100, L501.9520, L500.4050, L501.2300 ####[facility] [address] [place], [address] ALT [Catalytic activity/Vol] 36 U/L Normal 16-61 [facility] Comment on above: Performed By: #### L 300.3900, L501.5200, L100.0100, L501.9520, L500.4050, L501.2300 ####[facility] [address] [place], [address] AST [Catalytic activity/Vol] 15 U/L Normal 15-37 [facility] Comment on above: Performed By: #### L 300.3900, L501.5200, L100.0100, L501.9520, L500.4050, L501.2300 ####[facility] [address] [place], [address] Bilirubin [Mass/Vol] 1.30 mg/dL High 0.20-1.00 [facility] Comment on above: Result Comment: For patients on eltrombopag therapy, use of Dimension [place] TBIL is not recommended. Performed By: #### L 300.3900, L501.5200, L100.0100, L501.9520, L500.4050, L501.2300 ####[facility] [address] [place], [address] BUN/CRE 10.8 RATIO Normal 10-20 [facility] Comment on above: Performed By: #### L 300.3900, L501.5200, L100.0100, L501.9520, L500.4050, L501.2300 ####[facility] [address] [place], [address] CA,Total 9.3 mg/dL Normal 8.5-10.1 [facility] Comment on above: Performed By: #### L 300.3900, L501.5200, L100.0100, L501.9520, L500.4050, L501.2300 ####[facility] [address] [place], [address] Chloride [Moles/Vol] 103 mmol/L Normal 98-107 [facility] Comment on above: Performed By: #### L 300.3900, L501.5200, L100.0100, L501.9520, L500.4050, L501.2300 ####[facility] [address] [place], [address] CO2 [Moles/Vol] 29.0 mmol/L Normal 21.0-32.0 [facility] Comment on above: Performed By: #### L 300.3900, L501.5200, L100.0100, L501.9520, L500.4050, L501.2300 ####[facility] [address] [place], [address] Creatinine [Mass/Vol] 0.74 mg/dL Normal 0.70-1.30 [facility] Comment on above: Result Comment: The validity of the calculated GFR GFRAA in patients over 70 years has not been determined. Clinical correlation is essential. Performed By: #### L 300.3900, L501.5200, L100.0100, L501.9520, L500.4050, L501.2300 ####[facility] [address] [place], [address] ECRCL 94.94 ml/min Normal [facility] Comment on above: Performed By: #### L 300.3900, L501.5200, L100.0100, L501.9520, L500.4050, L501.2300 ####[facility] [address] [place], [address] EST GFR - AA 131 mL/min Normal >60 [facility] Comment on above: Result Comment: Afri can Pakistani GFR Calc Performed By: #### L 300.3900, L501.5200, L100.0100, L501.9520, L500.4050, L501.2300 ####[facility] [address] [place], [address] GAP 4 Low 5-15 [facility] Comment on above: Performed By: #### L 300.3900, L501.5200, L100.0100, L501.9520, L500.4050, L501.2300 ####[facility] [address] [place], [address] GFR/1.73 sq M.predicted among non-blacks MDRD (S/P/Bld) [Vol rate/Area] 109 mL/min/{1.73_m2} Normal >60 [facility] Comment on above: Result Comment: Non- GFR Calc Performed By: #### L 300.3900, L501.5200, L100.0100, L501.9520, L500.4050, L501.2300 ####[facility] [address] [place], [address] Globulin (S) [Mass/Vol] 3.2 g/dL Normal 2.2-4.2 [facility] Comment on above: Performed By: #### L 300.3900, L501.5200, L100.0100, L501.9520, L500.4050, L501.2300 ####[facility] [address] [place], [address] Glucose [Mass/Vol] 117 mg/dL High 74-106 [facility] Comment on above: Result Comment: Fast ing Glucose result from 100 to 125 mg/dL suggests IMPAIRED HOMEOSTASIS per A.D.A. criteria. Performed By: #### L 300.3900, L501.5200, L100.0100, L501.9520, L500.4050, L501.2300 ####[facility] [address] [place], [address] Potassium [Moles/Vol] 3.8 mmol/L Normal 3.5-5.1 [facility] [facility] Comment on above: Performed By: #### L 300.3900, L501.5200, L100.0100, L501.9520, L500.4050, L501.2300 ####[facility] [address] [place], [address] Sodium [Moles/Vol] 136 mmol/L Normal 136-145 [facility] Comment on above: Performed By: #### L 300.3900, L501.5200, L100.0100, L501.9520, L500.4050, L501.2300 ####[facility] [address] [place], [address] T PROT 6.4 g/dL Normal 6.4-8.2 [facility] Comment on above: Performed By: #### L 300.3900, L501.5200, L100.0100, L501.9520, L500.4050, L501.2300 ####[facility] [address] [place], [address] Urea nitrogen [Mass/Vol] 8 mg/dL Normal 7-18 [facility] Comment on above: Performed By: #### L 300.3900, L501.5200, L100.0100, L501.9520, L500.4050, L501.2300 ####[facility] [address] [facility] [id number] Laboratory - Chemistry and C hemistry - challengeOrdered By: Desmond Coyle on 05-19-2023 Albumin/Globulin [Mass ratio] 1.0 {ratio} 0.9-2.4 [facility] ALP [Catalytic activity/Vol] 220 U/L 45-117 [facility] ALT [Catalytic activity/Vol] 36 U/L 16-61 [facility] Globulin (S) [Mass/Vol] 3.2 g/dL 2.2-4.2 [facility] Natriuretic peptide B (Bld) [Mass/Vol] 419.5 pg/mL 0-100 [facility] Legionella Antigen Urineon 0 05-19-2023 LEGU Only Recommended for severe cases of pneumonia URINE, CLEAN CATCH Legionella Antigen result interpretation: L pneumo Ag Ur Ql Negative Presumptive negative for Legionella pneumophila serogroup 1 antigen in urine, suggesting no recent or current infection. Legionella Ag, Urine Negative (See interpretation below) Normal [facility] Comment on above: Performed By: #### L 501.5200, L500.2500, L501.2300, L300.3900, L100.0100 #### [facility] Laboratory [address] [place], [address] M R Staph Aureus DNA by PCRo n 05-19-2023 MRSA DNA ASSAY Negative Normal Negative [facility] Comment on above: Order Comment: for s uspected MRSA pneumonia Performed By: #### L 501.5200, L500.2500, L501.2300, L300.3900, L100.0100 #### [facility] Laboratory [address] [place], [address] MRCP Abdomen without Contras ton 05-19-2023 MRCP Abdomen without Contrast [facility] Imaging Services [address] [place] [address] MRCP Abdomen without Contrast MR#: [id number] Acct: [id number] Name: JUAQUIN KHALIL Rep #: [id number] : 1945 M 77 From: Epifanio Yen PCP: [place] Status: ADM IN Study: MRCP Abdomen without Contrast Date of Exam: Exam# [id number] Ordering Dr: Desmond Owen DO [id number] EXAM: MRCP PROTOCOL CLINICAL INDICATION: Newly diagnosed pancreatic head mass on CT, BLEEDING OUT LT EAR TECHNIQUE: Multiplanar and multisequence MR images of the abdomen without intravenous contrast obtained with MRCP sequence. Three-dimensional post-processing reconstructions were performed. COMPARISON: CT chest with contrast 05/18/2023. FINDINGS: LOWER THORAX: Bibasilar atelectasis and small pleural effusions. LIVER: Mild hepatic steatosis. GALLBLADDER AND BILE DUCTS: Gallbladder is not identified. No intra- or extrahepatic biliary ductal dilation. No choledochal filling defect. PANCREAS: No definite pancreatic mass is seen however the exam was performed with MRCP protocol and was not tailored to evaluate the pancreas. Further evaluation with dedicated MRI of the pancreas or CT scan with contrast might be of value. SPLEEN: Unremarkable. Non-enlarged. ADRENALS: No nodules. KIDNEYS AND URETERS: Normal renal size and position. No hydronephrosis. INTRAPERITONEAL SPACE: No ascites or other fluid collection. VASCULATURE: Abdominal aorta is non-dilated. LYMPH NODES: No enlarged lymph nodes. MRI/MRCP Abdomen without Contrast IMPRESSION: 1. No biliary dilation or choledocholithiasis. 2. No definite pancreatic mass is seen however, the exam was not tailored to evaluate the pancreas. Further evaluation with dedicated MRI of the pancreas or CT of the abdomen with contrast might be of value. Electronically Signed: Epifanio Wood MD at 11:40 EST , CC: Dr. Desmond Owen DO; [facility] Lumber Piler: Signed Normal [facility] Magnesiumon 05-19-2023 Magnesium [Mass/Vol] 2.1 mg/dL Normal 1.6-2.6 [facility] Comment on above: Performed By: #### L 300.3900, L501.5200, L100.0100, L501.9520, L500.4050, L501.2300 ####[facility] [address] [place], [address] No Panel InformationOrdered By: Desmond Coyle on 05-19-2023 Methicillin-Resist S.aureus DNA PCR Negative Negative [facility] Streptococcus pneumoniae Antigen (M [facility] Orbits for Foreign Bodyon Orbits for Foreign Body [facility] Imaging Services [address] [place] [address] Orbits for Foreign Body MR#: [id number] Acct: [id number] Name: JUAQUIN KHALIL Rep #: [id number] : 1945 M 77 From: Epifanio Yen PCP: [place] Status: ADM IN Study: Orbits for Foreign Body Date of Exam: 05/19/23 Exam# [id number] Ordering Dr: Constantino Albarado DO [id number] EXAM: XR ORBITS FOREIGN BODY CLINICAL INDICATION: H/O FB TECHNIQUE: Frontal view(s) of the orbits. COMPARISON: No relevant prior studies available. FINDINGS: BONES/JOINTS: Unremarkable. No acute fracture. SINUSES: Unremarkable as seen on these views. No air-fluid levels. SOFT TISSUES: No radiopaque foreign body. RAD/Orbits for Foreign Body IMPRESSION: No evidence of radiopaque foreign body. Electronically Signed: Epifanio Wood MD at 9:45 EST , CC: Dr. Constantino Albarado DO; [facility] Lumber Piler: Signed Normal [facility] Phosphoruson 05-19-2023 Phosphate [Mass/Vol] 3.2 mg/dL Normal 2.5-4.9 [facility] Comment on above: Performed By: #### L 300.3900, L501.5200, L100.0100, L501.9520, L500.4050, L501.2300 ####[facility] [address] [place], [address] Prothrombin Time w/INRon INR Coag (PPP) [Relative time] 2.3 {INR} Normal [facility] Comment on above: Performed By: #### L 300.3900, L501.5200, L100.0100, L501.9520, L500.4050, L501.2300 ####[facility] [address] [place], [address] PT Coag (PPP) [Time] 25.3 s High 11.7-14.9 [facility] Comment on above: Performed By: #### L 300.3900, L501.5200, L100.0100, L501.9520, L500.4050, L501.2300 ####[facility] [address] [place], [address] RBC morphologyOrdered By: Bipin Coyle on 05-19-2023 RBC morphology finding Nom (Bld) N CYTIC NORMAL NORM C&C [facility] RESPIRATORY PANEL MOLECULARo n 05-19-2023 RP PANEL ADENOVIRUS Not Detected INFLUENZA A Not Detected INFLUENZA A (SUBTYPE H1) Not Detected INFLUENZA A (SUBTYPE H3) Not Detected INFLUENZA B Not Detected HUMAN METAPHNEUMO Not Detected PARAINFLUENZA 1 Not Detected PARAINFLUENZA 2 Not Detected PARAINFLUENZA 3 Not Detected PARAINFLUENZA 4 Not Detected RHINOVIRUS Not Detected RSV A Not Detected RSV B Not Detected Normal [facility] Comment on above: Performed By: #### L 501.5200, L500.2500, L501.2300, L300.3900, L100.0100 #### [facility] Laboratory [address] [place], [address] Serum or plasma thyroid stim ulating hormone (TSH) measurement (units/volume)Ordered By: Desmond Coyle on 05-19-2023 TSH Qn 0.85 uIU/mL 0.358-3.74 [facility] Strep pneumoniae Antig(UR,CS F)on 05-19-2023 STPAG Comments: Only Recom mended for severe cases of pneumonia URINE INTERPRETATION Negative Urine Presumptive negative for pneumococcal pneumonia, suggesting no current or recent pneumococcal infection. Infection due to S pneumoniae cannot be ruled out since the antigen present in the sample may be below the detection limit of the test. Strep pneumo Test Negative URINE (See interpretation below) Normal [facility] Comment on above: Performed By: #### L 501.5200, L500.2500, L501.2300, L300.3900, L100.0100 #### [facility] Laboratory [address] [facility]. [place], [place], [id number] STPAG Only Recommended for severe cases of pneumonia URINE, CLEAN CATCH URINE INTERPRETATION Strep pneumoniae Antig(UR,CSF) Strep pneumoniae Antig(UR,CSF) Negative Urine Presumptive negative for pneumococcal pneumonia, suggesting no current or recent pneumococcal infection. Infection due to S pneumoniae cannot be ruled out since the antigen present in the sample may be below the detection limit of the test. Strep pneumo Test Negative URINE (See interpretation below) Normal [facility] Comment on above: Performed By: #### L 501.5200, L500.2500, L501.2300, L300.3900, L100.0100 #### [facility] Laboratory [address] [facility]. [place], [place], [address] Thin prep Papanicolaou smear with manual screeningOrdered By: Desmond Coyle on 05-19-2023 Thin prep Papanicolaou smear with manual screening 3.2 g/dL 3.2-5.0 [facility] Thin prep Papanicolaou smear with manual screening 15 U/L 15-37 [facility] Thyroid Stim Hormone (TSH)on 05-19-2023 TSH 0.85 uIU/mL Normal 0.358-3.74 [facility] Comment on above: Performed By: #### L 300.3900, L501.5200, L100.0100, L501.9520, L500.4050, L501.2300 ####[facility] [address] [facility] [place], [address] 12 Lead EKGon 05-18-2023 12 Lead EKG [facility] Cardiovascular Services [address] [place] [address] 12 Lead EKG 05/18/232125 MR#: [id number] Acct: [id number] Name: JUAQUIN KHALIL Rep #: [id number] : 1945 77 From: Moreno Bob MD Attending Dr: Dr. Constantino Albarado DO Status: A DM IN Ordering Dr: Leighton Drake DO Date: 05/18/23 Location: [facility] Sex: M C Admitted: 05/19/23 Test Reason : DYSRHYTHMIA Blood Pressure : / mmHG Vent. Rate : 076 BPM Atrial Rate : 000 BPM P-R Int : 000 ms QRS Dur : 078 ms QT Int : 402 ms P-R-T Axes : 000 027 123 degrees QTc Int : 452 ms Atrial fibrillation Nonspecific T wave abnormality Abnormal ECG Confirmed by LISBETH ALCAZAR, MORENO ([id number]), dictionary editor FEDERICO ROSS ([id number]) on 05/19/2023 10:28:51 AM Referred By: DK Confirmed By:MORENO BOB MD 05/19/23 1028 Date Moreno Bob MD CC: Dr. Leighton Drake DO; Dr. Constantino Albarado DO; [facility] Signed Normal [facility] BNP,B-Type NATRIURETIC PEPTI Jacquie 05-18-2023 Natriuretic peptide B (Bld) [Mass/Vol] 399.2 pg/mL High 0-100 [facility] Comment on above: Performed By: #### L 501.4020, L100.0100, L500.2500, L503.6620 ####[facility] [address] [place], [address] Basic Metabolic Profile (BMP )on 05-18-2023 BUN/CRE 11.3 RATIO Normal 10-20 [facility] Comment on above: Order Comment: 'TROP ' Serial specimen #1, #2 or #3: 1 Performed By: #### L 501.4020, L100.0100, L500.2500, L503.6620 ####[facility] [address] [place], [address] CA,Total 9.1 mg/dL Normal 8.5-10.1 [facility] Comment on above: Order Comment: 'TROP ' Serial specimen #1, #2 or #3: 1 Performed By: #### L 501.4020, L100.0100, L500.2500, L503.6620 ####[facility] [address] [place], [address] Chloride [Moles/Vol] 105 mmol/L Normal 98-107 [facility] Comment on above: Order Comment: 'TROP ' Serial specimen #1, #2 or #3: 1 Performed By: #### L 501.4020, L100.0100, L500.2500, L503.6620 ####[facility] [address] [place], [address] CO2 [Moles/Vol] 28.0 mmol/L Normal 21.0-32.0 [facility] Comment on above: Order Comment: 'TROP ' Serial specimen #1, #2 or #3: 1 Performed By: #### L 501.4020, L100.0100, L500.2500, L503.6620 ####[facility] [address] [place], [address] Creatinine [Mass/Vol] 0.80 mg/dL Normal 0.70-1.30 [facility] Comment on above: Order Comment: 'TROP ' Serial specimen #1, #2 or #3: 1 Result Comment: The validity of the calculated GFR GFRAA in patients over 70 years has not been determined. Clinical correlation is essential. Performed By: #### L 501.4020, L100.0100, L500.2500, L503.6620 ####[facility] [address] [place], [address] EST GFR - AA 121 mL/min Normal >60 [facility] Comment on above: Order Comment: 'TROP ' Serial specimen #1, #2 or #3: 1 Result Comment: Afri can Pakistani GFR Calc Performed By: #### L 501.4020, L100.0100, L500.2500, L503.6620 ####[facility] [address] [place], [address] GAP 5 Normal 5-15 [facility] Comment on above: Order Comment: 'TROP ' Serial specimen #1, #2 or #3: 1 Performed By: #### L 501.4020, L100.0100, L500.2500, L503.6620 ####[facility] [address] [place], [address] GFR/1.73 sq M.predicted among non-blacks MDRD (S/P/Bld) [Vol rate/Area] 100 mL/min/{1.73_m2} Normal >60 [facility] Comment on above: Order Comment: 'TROP ' Serial specimen #1, #2 or #3: 1 Result Comment: Non- GFR Calc Performed By: #### L 501.4020, L100.0100, L500.2500, L503.6620 ####[facility] [address] [place], [address] Glucose [Mass/Vol] 112 mg/dL High 74-106 [facility] Comment on above: Order Comment: 'TROP ' Serial specimen #1, #2 or #3: 1 Result Comment: Fast ing Glucose result from 100 to 125 mg/dL suggests IMPAIRED HOMEOSTASIS per A.D.A. criteria. Performed By: #### L 501.4020, L100.0100, L500.2500, L503.6620 ####[facility] [address] [place], [address] Potassium [Moles/Vol] 3.8 mmol/L Normal 3.5-5.1 [facility] Comment on above: Order Comment: 'TROP ' Serial specimen #1, #2 or #3: 1 Performed By: #### L 501.4020, L100.0100, L500.2500, L503.6620 ####[facility] [address] [place], [address] Sodium [Moles/Vol] 138 mmol/L Normal 136-145 [facility] Comment on above: Order Comment: 'TROP ' Serial specimen #1, #2 or #3: 1 Performed By: #### L 501.4020, L100.0100, L500.2500, L503.6620 ####[facility] [address] [place], [address] Urea nitrogen [Mass/Vol] 9 mg/dL Normal 7-18 [facility] Comment on above: Order Comment: 'TROP ' Serial specimen #1, #2 or #3: 1 Performed By: #### L 501.4020, L100.0100, L500.2500, L503.6620 ####[facility] [address] [place], [address] Basophil percentageOrdered B y: Leighton Drake on 05-18-2023 Basophil percentage 0-5 SEEN /hpf 0-5 [facility] Bilirubin Test strip Ql (U)O rdered By: Leighton Drake on 05-18-2023 Bilirubin Ql (U) Negative Negative [facility] Blood band neutrophil count as percentage of total leukocytesOrdered By: Leighton Drake on 05-18-2023 Band form neutrophils/100 WBC (Bld) 2 % 0-5 [facility] Blood metamyelocytes/100 [place] kocytesOrdered By: Leighton Drake on 05-18-2023 Metamyelocytes/100 WBC (Bld) 2 % 0-1 [facility] Blood platelet adequacy dete ction by light microscopyOrdered By: Leighton Drake on 05-18-2023 Platelets LM Ql (Bld) ADEQUATE ADEQ [facility] Chest 1 View (Portable)on 01 -18-2024 Chest 1 View (Portable) [facility] Imaging Services [address] [place] [address] Chest 1 View (Portable) MR#: [id number] Acct: [id number] Name: JUAQUIN KHALIL Rep #: [id number] : 1945 M 77 From: Diego Sanchez MD PCP: [facility] Status: REG ER Study: Chest 1 View (Portable) Date of Exam: 05/18/23 Exam# [id number] Ordering Dr: Leighton Drake DO [id number] STUDY: X-RAY CHEST REASON FOR EXAM: Male, 77 years old. chest pain TECHNIQUE: AP portable COMPARISON: None. FINDINGS: The lungs are clear and expanded. There is no demonstrated pleural abnormality. Heart is mildly enlarged.. Normal mediastinum and cata. Normal visualized pulmonary arteries. Mildly calcified aortic arch and descending thoracic aorta. Postop change status post median sternotomy and CABG Normal visualized thoracic spine. Normal visualized ribs, clavicles, and shoulders. There is no demonstrated abnormality of the visualized soft tissue structures of the upper abdomen. RAD/Chest 1 View (Portable) IMPRESSION: ASHD. No acute cardiopulmonary pathology Electronically Signed: Diego Sanchez MD at 21:38 EST Reading Location ID and State: [address] [place] [address] Tel , Service support , CC: Dr. Leighton Drake DO; [facility] Lumber Piler: Signed Normal [facility] Chest WITH Contraston 2023 Chest WITH Contrast [facility] Imaging Services [address] [place] [address] Chest WITH Contrast MR#: [id number] Acct: [id number] Name: JUAQUIN KHALIL Rep #: [id number] : 1945 M 77 From: Diego Sanchez MD PCP: [facility] Status: REG ER Study: Chest WITH Contrast Date of Exam: 05/18/23 Exam# [id number] Ordering Dr: Leighton Drake DO [id number] INDICATION: hypoxia EXAMINATION: CT CHEST WITH CONTRAST - CT Chest W/ Contrast Injection TECHNIQUE: Helically acquired images were obtained of the chest following IV contrast. A radiation dose optimization technique was used for this scan. IV Contrast dosage and agent: COMPARISON: April 03, 2016 FINDINGS: LUNGS, PLEURA AND LARGE AIRWAYS: There are small bilateral pleural effusions and bibasilar atelectasis or infiltrates. No pneumothorax. THYROID: Multinodular retrosternal goiter is noted HEART AND PERICARDIUM: Heart size is normal. No pericardial effusion. Multifocal coronary artery disease. VESSELS: Thoracic aorta is not dilated. No aortic dissection. No obvious central pulmonary embolism although this study was not performed with the pulmonary embolism protocol. MEDIASTINUM AND CATA: No mediastinal or hilar adenopathy. Esophagus is unremarkable. No hiatal hernia. UPPER ABDOMEN: Small right adrenal nodule measuring approximately 1.7 cm unchanged since previous study.. Nonspecific fatty infiltrated liver. There is asymmetric prominence of the pancreatic head and uncinate process which has increased in size since prior exam MRI/MRCP recommended for further evaluation Small hiatal hernia noted BONES: Postop change status post median sternotomy and aortic valve replacement.. Dorsal spine demonstrates advanced arthritic changes possibly ankylosing spondylitis.. CT/Chest WITH Contrast IMPRESSION: Small bilateral pleural effusions and bibasilar atelectasis or infiltrate. Incidental findings including apparent enlargement of the pancreatic head and uncinate process possibly due to chronic pancreatitis or neoplasm. Clinical correlation recommended as well as MRI/MRCP Small bilateral pleural effusions and bibasilar atelectasis or infiltrate. Electronically Signed: Diego Sanchez MD at 22:49 EST , CC: Dr. Leighton Drake DO; [facility] Lumber Piler: Signed Normal [facility] Direct bilirubinOrdered By: Leighton Drake on 05-18-2023 Bilirubin.direct [Mass/Vol] 0.42 mg/dL 0.00-0.30 [facility] Emergency Department Summary on 05-18-2023 Emergency Department Summary [facility] Medical Records Department [address] [place] [address] Emergency Department Summary 05/18/23 MR#: [id number] Acct: [id number] Name: JUAQUIN KHALIL Rep #: [id number] : 1945 77 From: Leighton Drake DO PCP: [facility] Status:REG ER Location: ED HPI History of Present Illness Chief Complaint: Ear Problem Narrative Narrative: 77-year-old male initially came in to be evaluated for bleeding from the right ear. He had some dried blood there now. Not sure what happened and he may have scratched it. Bleeding is well- controlled. It was noticed when he got up to go to the bathroom that is hypoxic. He states that over the last couple of weeks he had some coughing and shortness of breath. No fevers or chills. No body aches. Patient states that initially he does not have any trouble sleeping but his noted that he is been sleeping in his lazy boy. He denies lower extremity edema. Patient is on Coumadin for history of heart valve replacement. [facility] Medical History Back pain Cardiology follow-up encounter Excessive bleeding FH: bilateral hip replacements Former smoker Gastric reflux High cholesterol History of echocardiogram History of edema History of IBS History of pain when walking History of stress test Leg cramps Migraine headache Shortness of breath on exertion Sleep apnea Stroke/cerebrovascular accident Thyroid disease Wears hearing aid Home Medications warfarin 4 mg tablet (Jantoven) 8 mg PO SUTUWETHFRSA 04/03/16 [History Last Taken 01/08/23] allopurinol 100 mg tablet 100 mg PO DAILYCM 04/04/16 [History Last Taken 05/18/23] atorvastatin 40 mg tablet 80 mg PO DAILY 04/04/16 [History Last Taken 05/18/23] ferrous sulfate 325 mg (65 mg iron) tablet 325 mg PO DAILY 04/04/16 [History Last Taken 05/18/23] isosorbide mononitrate 30 mg tablet,extended release 24 hr 30 mg PO DAILY 04/04/16 [History Last Taken 05/18/23] levothyroxine 25 mcg tablet 50 mcg PO DAILY 04/04/16 [History Last Taken 05/18/23] metoprolol tartrate 25 mg tablet 25 mg PO DAILY 04/04/16 [History Last Taken 05/18/23] pantoprazole 40 mg tablet,delayed release 40 mg PO BID 04/04/16 [History Last Taken 05/18/23] gabapentin 300 mg capsule 300 mg PO DAILY 01/10/20 [History Last Taken 05/18/23] tamsulosin 0.4 mg capsule 0.4 mg PO DAILY 07/09/22 [History Last Taken 05/18/23] warfarin 4 mg tablet 2 mg PO BID 07/09/22 [History Last Taken 01/08/23] aspirin 81 mg capsule 81 mg PO DAILY blood thinner 01/10/23 [History Last Taken 05/18/23] finasteride 5 mg tablet 5 mg PO DAILY 05/18/23 [History Last Taken 05/18/23] Allergy/AdvReac Type Severity Reaction Status Date / Time hydrocodone bitartrate Allergy Other Verified 05/18/23 17:58 [From Vicodin] Surgical History History of cardiac catheterization History of coronary artery stent placement History of heart surgery History of open heart surgery Hx laparoscopic cholecystectomy Hx of aortic valve replacement Social History (Updated 05/18/23 @ 21:50 by Lauren Felipe) household members: spouse Smoking Status: Former smoker ROS ROS ED Constitutional Constitutional ED: Denies chills, fever(s) or sweats Eyes Eyes: Denies blurry vision or change in vision ENT ENT ED: Denies ear pain or sore throat Cardiovascular Cardiovascular: Reports orthopnea; Denies chest pain, palpitations or racing heartbeat Respiratory/Chest Respiratory/Chest: Reports cough, dyspnea, dyspnea on exertion and orthopnea; Denies sputum Gastrointestinal Gastrointestinal: Denies abdominal pain, constipation, diarrhea, nausea or vomiting Genitourinary Genitourinary ED: Denies dysuria, hematuria or urinary frequency Musculoskeletal Musculoskeletal: Denies arthralgias, myalgias or neck pain Integumentary Reports other Details: Abrasion to left ear ; Denies abscess, Abrasions or rash Neurologic Neurologic: Denies headache(s), paresthesias or weakness Psychiatric Psychiatric: Denies anxiety, depression, suicidal ideation or suicidal thoughts Endocrine Endocrinology: Denies polydipsia or polyuria EXAM Physical Exam Const Vital Signs: 05/18/23 17:55 05/18/23 20:29 05/18/23 20:35 Temperature 97.6 F L 97.9 F Temperature Source Temporal Oral Pulse Rate 74 86 Respiratory Rate 18 16 Blood Pressure 183/69 H 180/81 H Blood Pressure Mean 107 114 Pulse Ox 93 87 93 Oxygen Delivery Method Room Air Room Air Nasal Cannula Oxygen Flow Rate (L/min) 2 05/18/23 21:18 05/18/23 21:54 05/18/23 23:27 Temperature 97.3 F L Temperature Source Temporal Pulse Rate 71 75 Respiratory Rate 18 18 Blood Pressure 169/98 H 172/81 H Blood Pressure Mean 121 111 Pulse Ox 93 93 (more content not included)... Normal [facility] H AND P Exam - Hospitaliston 05-18-2023 H&P Exam - Hospitalist [facility] Medical Records Department [address] [place] [address] H P Exam - Hospitalist 05/18/23 2325 MR#: [id number] Acct: [id number] Name: JUAQUIN KHALIL Rep #: [id number] : 1945 77 From: Desmond Owen DO PCP: [facility] Status:ADM IN Location: [facility] [id number] [facility] - General General Date of Admission: 05/19/23 Date of Service: 05/18/23 Chief Complaint: Cough and SOB. HPI Narrative JUAQUIN KHALIL, is a 77 M with a past medical history of essential hypertension, hyperlipidemia, hypothyroidism, obesity; with BMI of 36.4 this admission, JONNA, history of tobacco abuse, CAD; s/p stent, chronic atrial fibrillation + history of mechanical aortic valve; on Coumadin, history of CVA (2006), migraine headaches, chronic anemia, neuropathy, history of diverticulosis, IBS, hiatal hernia, BPH, GERD, gout and OA; s/p bilateral THR's plus chronic back pain who presents to [facility] ER complaining of cough and SOB. Mr. Khalil reports his symptoms began approximately two weeks prior to admission with increasing coughing and SOB. In the ER he was noted to be hypoxic when he got up to use the bathroom with patient admitting he has been sleeping in a recliner due to increased SOB when lying flat though he denies LE edema. He also denies associated fever, chills, nausea, vomiting, abdominal pain or chest pain. In the ER he was noted to have a CXR positive for bibasilar infiltrate consistent with suspected pneumonia and leukocytosis of 19.8 present on admission along with an elevated BNP of 399 pg/mL present on admission consistent with superimposed AE CHF with clinical evidence of acute hypoxic respiratory insufficiency complicated by an incidentally noted enlargement of the pancreatic head and uncinate process due to a suspected neoplasm with MRCP recommended and he was then admitted to the PCU for ongoing care for a stay that is expected to be greater than 48 hours. [facility] Medical History Back pain Cardiology follow-up encounter Excessive bleeding FH: bilateral hip replacements Former smoker Gastric reflux High cholesterol History of echocardiogram History of edema History of IBS History of pain when walking History of stress test Leg cramps Migraine headache Shortness of breath on exertion Sleep apnea Stroke/cerebrovascular accident Thyroid disease Wears hearing aid Home Medications warfarin 4 mg tablet (Jantoven) 8 mg PO SUTUWETHFRSA 04/03/16 [History Last Taken 01/08/23] allopurinol 100 mg tablet 100 mg PO DAILYCM 04/04/16 [History Last Taken 05/18/23] atorvastatin 40 mg tablet 80 mg PO DAILY 04/04/16 [History Last Taken 05/18/23] ferrous sulfate 325 mg (65 mg iron) tablet 325 mg PO DAILY 04/04/16 [History Last Taken 05/18/23] isosorbide mononitrate 30 mg tablet,extended release 24 hr 30 mg PO DAILY 04/04/16 [History Last Taken 05/18/23] levothyroxine 25 mcg tablet 50 mcg PO DAILY 04/04/16 [History Last Taken 05/18/23] metoprolol tartrate 25 mg tablet 25 mg PO DAILY 04/04/16 [History Last Taken 05/18/23] pantoprazole 40 mg tablet,delayed release 40 mg PO BID 04/04/16 [History Last Taken 05/18/23] gabapentin 300 mg capsule 300 mg PO DAILY 01/10/20 [History Last Taken 05/18/23] tamsulosin 0.4 mg capsule 0.4 mg PO DAILY 07/09/22 [History Last Taken 05/18/23] warfarin 4 mg tablet 2 mg PO BID 07/09/22 [History Last Taken 01/08/23] aspirin 81 mg capsule 81 mg PO DAILY blood thinner 01/10/23 [History Last Taken 05/18/23] finasteride 5 mg tablet 5 mg PO DAILY 05/18/23 [History Last Taken 05/18/23] Allergy/AdvReac Type Severity Reaction Status Date / Time hydrocodone bitartrate Allergy Other Verified 05/18/23 17:58 [From Vicodin] Surgical History History of cardiac catheterization History of coronary artery stent placement History of heart surgery History of open heart surgery Hx laparoscopic cholecystectomy Hx of aortic valve replacement Social History household members: spouse Smoking Status: Former smoker ROS ROS Narrative Review of systems: General: Patient denies fevers or chills. HENT: Denies headache, denies stuffy nose, denies sore throat EYES: Denies changes in vision Resp: Patient admits to shortness of breath that is made worse by lying flat. Cardiac: Positive orthopnea with patient sleeping in recliner. GI: Denies abdominal pain, denies changes in bowel, denies nausea or vomiting : Denies changes in urination Extremity: Denies swelling Musculoskeletal: Feels somewhat generally weak and unwell Neuro: Denies any numbness/tingling Heme: Denies any bleeding or bruising Skin: Patient admits to abrasion to right ear. Psychiatric: No complaints voiced related to uncont (more content not included)... Normal [facility] Ketones Test strip Ql (U)Ord ered By: Leighton Drake on 05-18-2023 Ketones Ql (U) Negative Negative [facility] L501.4020on 05-18-2023 TROPONIN-I HS 12 pg/mL Normal 3.0-78.0 [facility] Comment on above: Order Comment: 'TROP ' Serial specimen #1, #2 or #3: 1 Result Comment: Taylor ray Note: New Test Units and Gender Specific Reference Ranges. For more information see Policy Stat Procedure [place] High Sensitivity Troponin (TNIH) and attachments. Performed By: #### L 501.4020, L100.0100, L500.2500, L503.6620 ####[facility] [address] [place], [address] Laboratory - Chemistry and C hemistry - challengeOrdered By: Leighton Drake on 05-18-2023 Lipase [Catalytic activity/Vol] 30 U/L 13-75 [facility] Comment on above: Please note:LIPASE r evised reference range effective 22. New Lipase methodology. Expected to produce lower values than the previous assay method. NEW Reference Range: 13 - 75 U/L Laboratory - Hematology and Cell countsOrdered By: Leighton Drake on 05-18-2023 Anisocytosis Ql (Bld) RARE [facility] Lipaseon 05-18-2023 Lipase [Catalytic activity/Vol] 30 U/L Normal 13-75 [facility] Comment on above: Result Comment: Taylro ray note: LIPASE revised reference range effective 22. New Lipase methodology. Expected to produce lower values than the previous assay method. NEW Reference Range: 13 - 75 U/L Performed By: #### L 500.3400, L501.2450 ####[facility] [address] [place], [address] Liver Profileon 05-18-2023 Albumin [Mass/Vol] 3.4 g/dL Normal 3.2-5.0 [facility] Comment on above: Performed By: #### L 500.3400, L501.2450 ####[facility] [address] [place], [address] ALK P 234 U/L High 45-117 [facility] Comment on above: Performed By: #### L 500.3400, L501.2450 ####[facility] [address] [place], [address] ALT [Catalytic activity/Vol] 41 U/L Normal 16-61 [facility] Comment on above: Performed By: #### L 500.3400, L501.2450 ####[facility] [address] [place], [address] AST [Catalytic activity/Vol] 22 U/L Normal 15-37 [facility] Comment on above: Performed By: #### L 500.3400, L501.2450 ####[facility] [address] [place], [address] Bilirubin [Mass/Vol] 1.20 mg/dL High 0.20-1.00 [facility] Comment on above: Result Comment: For patients on eltrombopag therapy, use of Dimension [place] TBIL is not recommended. Performed By: #### L 500.3400, L501.2450 ####[facility] [address] [place], [address] Bilirubin.direct [Mass/Vol] 0.42 mg/dL High 0.00-0.30 [facility] Comment on above: Performed By: #### L 500.3400, L501.2450 ####[facility] [address] [place], [address] Globulin (S) [Mass/Vol] 3.2 g/dL Normal 2.2-4.2 [facility] Comment on above: Performed By: #### L 500.3400, L501.2450 ####[facility] [address] [place], [address] T PROT 6.6 g/dL Normal 6.4-8.2 [facility] Comment on above: Performed By: #### L 500.3400, L501.2450 ####[facility] [address] [place], [address] M100.678on 05-18-2023 M100.678 SARS-CoV-2 (COVID 19 ) Negative INFLUENZA A Negative INFLUENZA B Negative RSV PCR Negative Normal [facility] Comment on above: Performed By: #### L 501.5200, L500.2500, L501.2300, L300.3900, L100.0100 #### [facility] Laboratory [address] [place], [address] Macrocytes detectionOrdered By: Leighton Drake on 05-18-2023 Macrocytes Ql (Bld) RARE [facility] Mucus LM Ql (Urine sed)Order ed By: Leighton Drake on 05-18-2023 Mucus Ql (Urine sed) 0 SEEN /hpf [facility] Nitrite Test strip Ql (U)Ord ered By: Leighton Drake on 05-18-2023 Nitrite Ql (U) Negative Negative [facility] No Panel InformationOrdered By: Leighton Drake on 05-18-2023 Troponin I High Sensitivity 12 pg/mL 3.0-78.0 [facility] Comment on above: Please Note: New Ashtyn t Units and Gender Specific Reference Ranges. For more information see Policy Stat Procedure [place] High Sensitivity Troponin (TNIH) and attachments. Urine RBC 0 SEEN /hpf 0-5 [facility] Protein Test strip Ql (U)Ord ered By: Leighton Drake on 05-18-2023 Protein Ql (U) Negative Negative [facility] Prothrombin Time w/INRon INR Coag (PPP) [Relative time] 2.5 {INR} Normal [facility] Comment on above: Performed By: #### L 300.3900 ####[facility] [address] [place], [address] PT Coag (PPP) [Time] 27.7 s High 11.7-14.9 [facility] Comment on above: Performed By: #### L 300.3900 ####[facility] [address] [place], [address] Squamous epithelial cells de tection in urine sediment by light microscopyOrdered By: Leighton Drake on 05-18-2023 Epithelial cells.squamous LM Ql (Urine sed) 0 SEEN /hpf 0-5 [facility] Urinalysis, Completeon 05-18 WBC 0-5 SEEN Normal 0-5 [facility] Comment on above: Order Comment: COLLE CTOR TO SPECIFY Performed By: #### L 501.5200, L500.2500, L501.2300, L300.3900, L100.0100 #### [facility] Laboratory [address] [place], [address] BACTERIA 0 SEEN Normal None Seen [facility] Comment on above: Order Comment: COLLE CTOR TO SPECIFY Performed By: #### L 501.5200, L500.2500, L501.2300, L300.3900, L100.0100 #### [facility] [address] [place], [address] EPI,SQUAMOUS 0 SEEN Normal 0-5 [facility] Comment on above: Order Comment: COLLE CTOR TO SPECIFY Performed By: #### L 501.5200, L500.2500, L501.2300, L300.3900, L100.0100 #### [facility] [address] [place], [address] Mucus Ql (Urine sed) 0 SEEN Normal [facility] Comment on above: Order Comment: COLLE CTOR TO SPECIFY Performed By: #### L 501.5200, L500.2500, L501.2300, L300.3900, L100.0100 #### [facility] [address] [place], [address] RBC 0 SEEN Normal 0-5 [facility] Comment on above: Order Comment: COLLE CTOR TO SPECIFY Performed By: #### L 501.5200, L500.2500, L501.2300, L300.3900, L100.0100 #### [facility] [address] [place], [address] Urine blood detectionOrdered By: Leighton Drake on 05-18-2023 RBC Ql (U) 10 /ul Negative [facility] Urine clarityOrdered By: London Drake on 05-18-2023 Clarity (U) Clear Clear [facility] Urine color determinationOrd ered By: Leighton Drake on 05-18-2023 Color (U) Yellow Yellow [facility] Urine glucose detectionOrder ed By: Leighton Drake on 05-18-2023 Glucose Ql (U) Normal mg/dl Normal [facility] Urine leukocyte esterase det ection by dipstickOrdered By: Leighton Drake on 05-18-2023 Leukocyte esterase Test strip Ql (U) 25 /ul Negative [facility] Urine pHOrdered By: Leighton nath on 05-18-2023 pH (U) 7.0 [pH] 5.0 - 8.0 [facility] Urine sediment bacteria coun t by microscopy (number/high power field)Ordered By: Leighton Drake on 05-18-2023 Bacteria LM.HPF (Urine sed) [#/Area] 0 /[HPF] None Seen [facility] Urine specific gravity measu rementOrdered By: Leighton Drake on 05-18-2023 Specific gravity (U) [Rel density] 1.005 1.002-1.030 [facility] Urine urobilinogen measureme ntOrdered By: Leighton Drake on 05-18-2023 Urobilinogen Ql (U) 4 mg/dl Normal [facility] Laboratory - CoagulationOrde red By: Iker Tom on 01-13-2023 INR Coag (Bld) [Relative time] 1.3 {INR} [facility] Comment on above: Critical Value > 4.0 Whole blood prothrombin time Ordered By: Iker Tom on 01-13-2023 PT Coag (Bld) [Time] 14.9 s 11.7-14.9 [facility] Absolute lymphocyte countOrd ered By: Collins Salguero on 07-10-2022 Lymphocytes Auto (Unsp spec) [#/Vol] 0.79 10*3/uL 0.83-4.51 [facility] Basophil percentageOrdered B y: Collins Salguero on 07-10-2022 Basophils/100 WBC (Bld) 1.2 % 0-1 [facility] Chloride [Moles/Vol] 102 mmol/L 98-107 [facility] Eosinophils/100 WBC (Bld) 0.9 % 0-5 [facility] Glucose [Mass/Vol] 100 mg/dL 74-106 [facility] Comment on above: Fasting Glucose resu lt from 100 to 125 mg/dL suggests IMPAIRED HOMEOSTASIS per A.D.A. criteria. Neutrophils (Bld) [#/Vol] 8.4 10*3/uL 2.0-7.7 [facility] Neutrophils/100 WBC (Bld) 81.4 % 47-70 [facility] Potassium [Moles/Vol] 4.3 mmol/L 3.5-5.1 [facility] Sodium [Moles/Vol] 137 mmol/L 136-145 [facility] WBC (Bld) [#/Vol] 10.4 10*3/uL 4.4-11.0 [facility] Blood erythrocytes count (nu mber/volume)Ordered By: Collins Salguero on 07-10-2022 RBC (Bld) [#/Vol] 4.68 10*6/uL 4.6-6.2 [facility] Blood hemoglobin measurement (mass/volume)Ordered By: Collins Salguero on 07-10-2022 Hemoglobin (Bld) [Mass/Vol] 13.3 g/dL 13.0-16.5 [facility] Blood lymphocytes/100 leukoc ytesOrdered By: Collins Salguero on 07-10-2022 Lymphocytes/100 WBC (Bld) 7.6 % 19-41 [facility] Blood monocytes/100 leukocyt esOrdered By: Collins Salguero on 07-10-2022 Monocytes/100 WBC (Bld) 4.5 % 0-10 [facility] Blood platelet mean volumeOr dered By: Collins Salguero on 07-10-2022 Platelet mean volume (Bld) [Entitic vol] 10.8 fL 6.2-12.0 [facility] Determination of erythrocyte mean corpuscular volume (MCV)Ordered By: Collins Salguero on 07-10-2022 MCV (RBC) [Entitic vol] 89.1 fL 80-94 [facility] Hematocrit Auto (Bld) [Volum e fraction]Ordered By: Collins Salguero on 07-10-2022 Hematocrit (Bld) [Volume fraction] 41.7 % 40-54 [facility] INR in Blood by Coagulation assayOrdered By: Collins Salguero on 07-10-2022 INR Coag (Bld) [Relative time] 2.2 {INR} [facility] Influenza virus A and B and SARS-CoV-2 (COVID-19) Ag panel - Upper respiratory specimOrdered By: Collins Salguero on 07-10-2022 SARS-CoV-2 (COVID-19) RNA SAIMA+probe Ql (Resp) [facility] Laboratory - Chemistry and C hemistry - challengeOrdered By: Collins Salguero on 07-10-2022 CO2 [Moles/Vol] 28.0 mmol/L 21.0-32.0 [facility] Magnesium [Mass/Vol] 1.7 mg/dL 1.6-2.6 [facility] Natriuretic peptide B (Bld) [Mass/Vol] 216.2 pg/mL 0-100 [facility] Urea nitrogen/Creatinine [Mass ratio] 14.1 mg/mg 10-20 [facility] Laboratory - CoagulationOrde red By: Collins Salguero on 07-10-2022 PT Coag (PPP) [Time] 23.9 s 11.7-14.9 [facility] Laboratory - Hematology and Cell countsOrdered By: Collins Salguero on 07-10-2022 Erythrocyte distribution width (RBC) [Entitic vol] 52.7 fL 35.1-43.9 [facility] Erythrocyte distribution width (RBC) [Ratio] 15.9 % 11.6-14.6 [facility] Immature granulocytes/100 WBC (Bld) 4.400 % 0.0-0.9 [facility] Comment on above: IG% - Immature Granu locytes (promyelocytes, myelocytes and metamyelocytes) > 1% indicates that a LEFT SHIFT is Present. MCH (RBC) [Entitic mass] 28.4 pg 27.0-32.0 [facility] Nucleated RBC/100 WBC (Bld) [Ratio] 0 % 0-5 [facility] MCHC Auto (RBC) [Mass/Vol]Or dered By: Collins Salguero on 07-10-2022 MCHC (RBC) [Mass/Vol] 31.9 g/dL 32-36 [facility] No Panel InformationOrdered By: Collins Salguero on 07-10-2022 Estimated Creatinine Clearance Calc 64.89 ml/min [facility] Estimated GFR (MDRD) Amer 125 mL/min >60 [facility] Comment on above: GFR Calc Estimated GFR (MDRD) Non-Af Amer 103 mL/min >60 [facility] Comment on above: Non- GFR Calc Platelets bldOrdered By: Andres Salguero on 07-10-2022 Platelets (Bld) [#/Vol] 176 10*3/uL 150-450 [facility] Serum or plasma calcium lourdes urement (mass/volume)Ordered By: Collins Salguero on 07-10-2022 Calcium [Mass/Vol] 8.7 mg/dL 8.5-10.1 [facility] Serum or plasma creatinine m easurement (mass/volume)Ordered By: Collins Salguero on 07-10-2022 Creatinine [Mass/Vol] 0.78 mg/dL 0.70-1.30 [facility] Comment on above: The validity of the calculated GFR & GFRAA in patients over 70 years has not been determined. Clinical correlation is essential. Serum or plasma urea nitroge n measurement (mass/volume)Ordered By: Collins Salguero on 07-10-2022 Urea nitrogen [Mass/Vol] 11 mg/dL 7-18 [facility] Thin prep Papanicolaou smear with manual screeningOrdered By: Collins Salguero on 07-10-2022 Thin prep Papanicolaou smear with manual screening 7 5-15 [facility] XR HAND MINIMUM 3 VIEWS LEFT on 04-22-2021 XR HAND MINIMUM 3 VIEWS LEFT ORIGINAL EXAMINATION: THREE XRAY VIEWS OF THE LEFT HAND04/22/2021 3:37 pm COMPARISON: None HISTORY: ORDERING SYSTEM PROVIDED HISTORY: Reason for Exam: pain, injury FINDINGS: Bones are moderately osteopenic. There is a nondisplaced comminuted fracture of the distal phalanx of the thumb disrupting the terminal tuft but not extending to the articular surface. There is soft tissue injury to the index finger also. There is questionable small fracture from the radial base of the distal phalanx and perhaps the head of the middle phalanx. No radiopaque foreign bodies in the hand. No other fractures. IMPRESSION: Fracture of the 1st distal phalanx. Questionable tiny fractures of the index finger adjacent to the D IP joint as described. Interpreted by: Dhiraj Dotson MD Preliminary Report By: Dhiraj Dotson MD Electronically signed By Dhiraj Dotson MD Dictated Date: 04/22/2021 3:44:03 PM Prelim Date: 04/22/2021 3:45:59 PM Sign Date: 04/22/2021 3:45:59 PM Ordering Provider: KALYAN KULKARNI [facility] ([place]) Otheron 10-01-2001 CONVERTED ELECTRONIC SIGNATURE WILLIAMS DAVIS M.D., PATHOLOGIST (Electronic signature on file) Final Signed Out: 10/01/2001 16:13 [facility] CONVERTED FINAL DIAGNOSIS AORTIC VALVE, EXCISION - FIBROSIS, MARKED CALCIFICATION AND FOCAL MYXOID DEGENERATION. [facility] CONVERTED ORDERING PROVIDER Ordering Provider: GUANAKITO BERMAN [facility] Vital Signs Date Time Vital Sign Value Performing Clinician Facility 02-10-2024 12:22-0400 Blood Pressure Cuff Size RORY GONZALES DO [facility] 02-10-2024 12:22-0400 Blood Pressure Location RORY GONZALES DO [facility] 02-10-2024 12:22-0400 Blood Pressure Method RORYLINDA GONZALES DO [facility] 02-10-2024 12:22-0400 Body temperature 97.16 [degF] RORYLINDA GONZALES DO [facility] 02-10-2024 12:22-0400 Diastolic Blood Pressure Non-Invasive 74 mm[Hg] RORY GUADALUPEMAUREEN DO [facility] 02-10-2024 12:22-0400 Heart rate 64 /min RORY GONZALES DO [facility] 02-10-2024 12:22-0400 Respiratory rate 18 /min RORY GONZALES DO [facility] 02-10-2024 12:22-0400 Systolic Blood Pressure Non-Invasive 127 mm[Hg] RORY GONZALES DO [facility] 05-23-2023 14:47-0500 SaO2% (BldA) [Mass fraction] 91 % [facility] 05-23-2023 14:05-0500 Body temperature 97.7 [degF] [facility] 05-23-2023 14:05-0500 Diastolic blood pressure 50 mm[Hg] [facility] 05-23-2023 14:05-0500 Heart rate 77 /min [facility] 05-23-2023 14:05-0500 Respiratory rate 16 /min [facility] 05-23-2023 14:05-0500 Systolic blood pressure 127 mm[Hg] [facility] 05-23-2023 06:00-0500 Body mass index (BMI) [Ratio] 33.4 kg/m2 [facility] 05-23-2023 06:00-0500 Body weight 105.6 kg [facility] 05-22-2023 13:25-0500 Body height 177.8 cm [facility] 05-20-2023 08:30-0500 Inhaled oxygen flow rate 2 L/min [facility] 01-13-2023 08:36-0400 Body temperature 97.5 [degF] [facility] 01-13-2023 08:36-0400 Diastolic blood pressure 85 mm[Hg] [facility] 01-13-2023 08:36-0400 Heart rate 73 /min [facility] 01-13-2023 08:36-0400 Respiratory rate 16 /min [facility] 01-13-2023 08:36-0400 SaO2% (BldA) [Mass fraction] 93 % [facility] 01-13-2023 08:36-0400 Systolic blood pressure 118 mm[Hg] [facility] 01-13-2023 07:21-0400 Body height 177.8 cm [facility] 01-13-2023 07:21-0400 Body mass index (BMI) [Ratio] 33.8 kg/m2 [facility] 01-13-2023 07:21-0400 Body weight 106.95 kg [facility] 12-29-2022 13:32-0400 Body mass index (BMI) [Ratio] 34.2 kg/m2 [facility] 12-29-2022 13:32-0400 Body temperature 96.2 [degF] [facility] 12-29-2022 13:32-0400 Body weight 108.18 kg [facility] 12-29-2022 13:32-0400 Diastolic blood pressure 88 mm[Hg] [facility] 12-29-2022 13:32-0400 Heart rate 84 /min [facility] 12-29-2022 13:32-0400 Respiratory rate 16 /min [facility] 12-29-2022 13:32-0400 Systolic blood pressure 148 mm[Hg] [facility] 07-10-2022 03:36-0400 Diastolic blood pressure 77 mm[Hg] [facility] 07-10-2022 03:36-0400 Heart rate 74 /min [facility] 07-10-2022 03:36-0400 Respiratory rate 15 /min [facility] 07-10-2022 03:36-0400 SaO2% (BldA) [Mass fraction] 98 % [facility] 07-10-2022 03:36-0400 Systolic blood pressure 150 mm[Hg] [facility] 07-09-2022 23:16-0500 Body temperature 98.7 [degF] [facility] 07-09-2022 23:14-0500 Body height 177.8 cm [facility] 07-09-2022 23:14-0500 Body mass index (BMI) [Ratio] 36.2 kg/m2 [facility] 07-09-2022 23:14-0500 Body weight 114.6 kg [facility] 04-22-2021 22:35-0500 Body temperature 97.52 [degF] DR LANI BERNAL DO [facility] 04-22-2021 22:35-0500 Diastolic blood pressure 75 mm[Hg] DR LANI BERNAL DO [facility] 04-22-2021 22:35-0500 Heart rate 64 /min DR LANI BERNAL DO [facility] 04-22-2021 22:35-0500 Mean blood pressure 107 mm[Hg] DR LANI BERNAL DO [facility] 04-22-2021 22:35-0500 Respiratory rate 16 /min DR LANI BERNAL DO [facility] 04-22-2021 22:35-0500 Systolic blood pressure 170 mm[Hg] DR LANI BERNAL DO [facility] 04-22-2021 15:34-0500 Diastolic blood pressure 59 mm[Hg] KALYAN KULKARNI MD [facility] 04-22-2021 15:34-0500 Heart rate 74 /min KALYAN KULKARNI MD [facility] 04-22-2021 15:34-0500 Respiratory rate 18 /min KALYAN KULKARNI MD [facility] 04-22-2021 15:34-0500 Systolic blood pressure 165 mm[Hg] KALYAN KULKARNI MD [facility] 04-22-2021 14:44-0500 Body temperature 98.6 [degF] KALYAN KULKARNI MD [facility] 04-22-2021 14:44-0500 Diastolic blood pressure 79 mm[Hg] KALYAN KULKARNI MD [facility] 04-22-2021 14:44-0500 Heart rate 71 /min KALYAN KULKARNI MD [facility] 04-22-2021 14:44-0500 Respiratory rate 16 /min KALYAN KULKARNI MD [facility] 04-22-2021 14:44-0500 Systolic blood pressure 185 mm[Hg] KALYAN KULKARNI MD [facility] Encounters Encounter Date Encounter Type Care Provider Facility Start: 11-18-2024 End: 12-12-2024 Patient encounter status Alexander Ramirez MD Work Phone: [facility] Start: 11-18-2024 End: 12-12-2024 Telephone encounter Alexander Ramirez MD Work Phone: Cardiothoracic Comment on above: Referral Information Start: 11-15-2024 End: 11-15-2024 Telephone encounter Cardiac Surgeon - Unspecified [facility] Start: 03-22-2024 End: 03-22-2024 Emergency department patient visit Arian Rodgers Facility:[facility] Start: 02-13-2024 End: 02-13-2024 Emergency department patient visit [facility] Start: 02-10-2024 End: 02-10-2024 Emergency department patient visit RORY GONZALES DO [facility] Start: 11-02-2023 End: 11-02-2023 Emergency department patient visit Jayesh Mccarthy Facility:[facility] Start: 05-23-2023 Non-patient / Non-visit [facility] Work Phone: Start: 05-22-2023 [place]ulatory [place] [facility] Start: 05-22-2023 Non-patient / Non-visit [facility] Start: 05-22-2023 Non-patient / Non-visit [facility] Work Phone: Start: 05-21-2023 Non-patient / Non-visit [facility] Start: 05-20-2023 Non-patient / Non-visit [facility] Work Phone: Start: 05-20-2023 ambulatory Ericnia Yulissaca Facility:[facility] Start: 05-20-2023 Non-patient / Non-visit [facility] Start: 05-19-2023 Non-patient / Non-visit [facility] Work Phone: Start: 05-19-2023 ambulatory [facility] Facility:[facility] Start: 05-19-2023 End: 05-23-2023 Evaluation and management of inpatient [facility] Work Phone: Start: 01-13-2023 Non-patient / Non-visit [facility] Start: 01-13-2023 End: 01-13-2023 Admission to same day surgery center [facility] Work Phone: Start: 01-13-2023 End: 01-13-2023 ambulatory [facility] Work Phone: Start: 12-29-2022 End: 12-29-2022 Patient encounter procedure [facility] Work Phone: Start: 07-09-2022 End: 07-10-2022 Emergency department patient visit [facility] Start: 04-22-2021 End: 04-22-2021 Emergency department patient visit DR LANI EBRNAL DO [facility] Start: 04-22-2021 End: 04-22-2021 Emergency department patient visit KALYAN KULKARNI MD [facility] Start: 09-28-2001 End: 09-28-2001 Patient encounter procedure Guanakito Berman Work Phone: [facility] Start: 09-28-2001 Results Only Guanakito Berman Work Phone: [facility] Procedures Date Procedure Procedure Detail Performing Clinician Start: 05-21-2023 Investigation of transfusion reaction [facility] Start: 05-20-2023 Plain chest X-ray [facility] Start: 05-19-2023 Streptococcus pneumoniae Antigen (M [facility] Start: 05-19-2023 [facility] Start: 05-19-2023 Magnetic resonance cholangiopancreatography [facility] Start: 05-18-2023 CT of thorax with contrast [facility] Start: 05-18-2023 Plain chest X-ray [facility] Start: 01-13-2023 Colonoscopy [facility] Start: 07-09-2022 Plain chest X-ray Start: 09-28-2001 CONVERTED SURGICAL PATHOLOGY Guanakito Cardona Work Phone: History of coronary artery bypass grafting S/P CABG (coronary artery bypass graft) Alexander Ramirez MD Work Phone: History of coronary artery bypass grafting S/P CABG (coronary artery bypass graft) Alexander Ramirez MD Work Phone: SARS-CoV-2 & FLU Antigen (Rapid) Plan of Treatment Date Care Activity Detail Author Start: 04-21-2025 End: 04-21-2025 Patient encounter procedure 04/21/2025 9:30 AM EST Office Visit [facility] [address] [place] [address] Erica Mathews MD [address], [address] [place] [address] New patient referral [facility] Comment on above: New patient referral Start: 12-30-2024 Influenza vaccination Influenza Vacc ine (#1) [facility] Start: 12-12-2024 End: 03-13-2025 aPTT in Platelet poor plasma by Coagulation assay ACTIVATED PARTIAL THROMBOPLASTIN TIME Lab Routine Encounter for preprocedural cardiovascular examination S/P aortic valve replacement S/P CABG (coronary artery bypass graft) Hypertension, unspecified type Nodular goiter Right sided weakness H/O: stroke Chronic myeloid leukemia (HCC) Unspecified hypothyroidism Expected: 12/12/2024 (Approximate), Expires: 03/13/2025 [facility] Comment on above: Expected: 12/12/2024 (Approximate), Expires: 03/13/2025 Start: 12-12-2024 End: 03-13-2025 CBC W Auto Differential panel - Blood COMPLETE BLOOD COUNT AND DIFFERENTIAL Lab Routine Encounter for preprocedural cardiovascular examination S/P aortic valve replacement S/P CABG (coronary artery bypass graft) Hypertension, unspecified type Nodular goiter Right sided weakness H/O: stroke Chronic myeloid leukemia (HCC) Unspecified hypothyroidism Expected: 12/12/2024, Expires: 03/13/2025 [facility] Comment on above: Expected: 12/12/2024 , Expires: 03/13/2025 Start: 12-12-2024 End: 03-13-2025 Comprehensive metabolic 2000 panel - Serum or Plasma COMPREHENSIVE METABOLIC PANEL Lab Routine Encounter for preprocedural cardiovascular examination S/P aortic valve replacement S/P CABG (coronary artery bypass graft) Hypertension, unspecified type Nodular goiter Right sided weakness H/O: stroke Chronic myeloid leukemia (HCC) Unspecified hypothyroidism Expected: 12/12/2024, Expires: 03/13/2025 [facility] Comment on above: Expected: 12/12/2024 , Expires: 03/13/2025 Start: 12-12-2024 End: 03-13-2025 CONFIRM BLOOD TYPE CONFIRM BLOOD TYPE Blood Bank Routine Encounter for preprocedural cardiovascular examination S/P aortic valve replacement S/P CABG (coronary artery bypass graft) Hypertension, unspecified type Nodular goiter Right sided weakness H/O: stroke Chronic myeloid leukemia (HCC) Unspecified hypothyroidism Expected: 12/12/2024, Expires: 03/13/2025 [facility] Comment on above: Expected: 12/12/2024 , Expires: 03/13/2025 Start: 12-12-2024 End: 03-13-2025 Creatinine and Glomerular filtration rate.predicted panel - Serum, Plasma or Blood CREATININE BLD Lab Routine Encounter for preprocedural cardiovascular examination S/P aortic valve replacement S/P CABG (coronary artery bypass graft) Hypertension, unspecified type Nodular goiter Right sided weakness H/O: stroke Chronic myeloid leukemia (HCC) Unspecified hypothyroidism Expected: 12/12/2024, Expires: 03/13/2025 [facility] Comment on above: Expected: 12/12/2024 , Expires: 03/13/2025 Start: 12-12-2024 End: 03-13-2025 Lactate dehydrogenase [Enzymatic activity/volume] in Serum or Plasma LACTATE DEHYDROGENASE Lab Routine Encounter for preprocedural cardiovascular examination S/P aortic valve replacement S/P CABG (coronary artery bypass graft) Hypertension, unspecified type Nodular goiter Right sided weakness H/O: stroke Chronic myeloid leukemia (HCC) Unspecified hypothyroidism Expected: 12/12/2024, Expires: 03/13/2025 [facility] Comment on above: Expected: 12/12/2024 , Expires: 03/13/2025 Start: 12-12-2024 End: 03-13-2025 Lipoprotein a [Mass/volume] in Serum or Plasma LIPOPROTEIN (A) Lab Routine Encounter for preprocedural cardiovascular examination S/P aortic valve replacement S/P CABG (coronary artery bypass graft) Hypertension, unspecified type Nodular goiter Right sided weakness H/O: stroke Chronic myeloid leukemia (HCC) Unspecified hypothyroidism Expected: 12/12/2024, Expires: 03/13/2025 [facility] Work Phone: Comment on above: Expected: 12/12/2024 , Expires: 03/13/2025 Start: 12-12-2024 End: 03-13-2025 PT panel - Platelet poor plasma by Coagulation assay PROTHROMBIN TIME Lab Routine Encounter for preprocedural cardiovascular examination S/P aortic valve replacement S/P CABG (coronary artery bypass graft) Hypertension, unspecified type Nodular goiter Right sided weakness H/O: stroke Chronic myeloid leukemia (HCC) Unspecified hypothyroidism Expected: 12/12/2024 (Approximate), Expires: 03/13/2025 [facility] Comment on above: Expected: 12/12/2024 (Approximate), Expires: 03/13/2025 Start: 12-12-2024 End: 03-13-2025 Thyrotropin [Units/volume] in Serum or Plasma THYROID STIMULATING HORMONE Lab Routine Encounter for preprocedural cardiovascular examination S/P aortic valve replacement S/P CABG (coronary artery bypass graft) Hypertension, unspecified type Nodular goiter Right sided weakness H/O: stroke Chronic myeloid leukemia (HCC) Unspecified hypothyroidism Expected: 12/12/2024 (Approximate), Expires: 03/13/2025 [facility] Comment on above: Expected: 12/12/2024 (Approximate), Expires: 03/13/2025 Start: 12-12-2024 End: 03-13-2025 TYPE AND SCREEN,30 DAY TYPE AND SCREEN,30 DAY Blood Bank Routine Encounter for preprocedural cardiovascular examination S/P aortic valve replacement S/P CABG (coronary artery bypass graft) Hypertension, unspecified type Nodular goiter Right sided weakness H/O: stroke Chronic myeloid leukemia (HCC) Unspecified hypothyroidism Expected: 12/12/2024, Expires: 03/13/2025 [facility] Comment on above: Expected: 12/12/2024 , Expires: 03/13/2025 Start: 12-12-2024 End: 03-13-2025 URINALYSIS, DIPSTICK ONLY URINALYSIS, DIPSTICK ONLY Lab Routine Encounter for preprocedural cardiovascular examination S/P aortic valve replacement S/P CABG (coronary artery bypass graft) Hypertension, unspecified type Nodular goiter Right sided weakness H/O: stroke Chronic myeloid leukemia (HCC) Unspecified hypothyroidism Expected: 12/12/2024, Expires: 03/13/2025 [facility] Comment on above: Expected: 12/12/2024 , Expires: 03/13/2025 Start: 05-01-2024 Advance Directive Discussion Advance Directive Discussion [facility] Start: 12-31-2023 Covid-19 Vaccine () Covid-19 Vaccine () [facility] Start: 05-23-2023 Patient discharge [facility] Start: 05-22-2023 Vital signs measurements [facility] Start: 05-21-2023 Bacteria identified in Blood by Culture Blood Culture [facility] Start: 05-21-2023 Respiratory microbia l culture Respiratory Culture [facility] Start: 05-21-2023 End: 05-21-2023 Blood culture [facility] Start: 05-21-2023 [facility] Start: 05-20-2023 Referral to returning officer [facility] Start: 05-19-2023 End: 05-19-2023 Blood culture [facility] Start: 05-19-2023 End: 05-19-2023 Following clinical pathway protocol [facility] Start: 05-19-2023 Assessment of risk o f venous thromboembolism [facility] Start: 05-19-2023 Catheterization of vein [facility] Start: 05-19-2023 Insertion of cathete r into peripheral vein [facility] Start: 05-19-2023 Measuring intake and output [facility] Start: 05-19-2023 Providing care accor ding to standard [facility] Start: 05-19-2023 Provision of activit y privileges [facility] Start: 05-19-2023 Referral to occupati onal therapist [facility] Start: 05-19-2023 Referral to service [facility] Start: 05-19-2023 End: 05-19-2023 [facility] Start: 05-19-2023 Referral to gastroenterology service [facility] Start: 05-19-2023 Admission procedure [facility] Start: 05-19-2023 Inhalation therapy procedure [facility] Start: 05-19-2023 Patient referral to dietitian [facility] Start: 05-18-2023 Hospital admission, emergency, from emergency room, medical nature [facility] Start: 05-18-2023 Cancer antigen 19-9 measurement [facility] Start: 01-13-2023 Patient discharge [facility] Start: 2020 RSV Vaccine (1 - 1-d ose 75+ series) RSV Vaccine (1 - 1-dose 75+ series) [facility] Start: 12-31-2019 Influenza vaccination INFLUENZA (#1) [facility] Start: 2010 ADVANCE DIRECTIVE DISCUSSION ADVANCE DIRECTIVE DISCUSSION [facility] Start: 2010 PNEUMOVAX AGE 65 AND OVER WITH 5YR LOOKBACK (#1) PNEUMOVAX AGE 65 AND OVER WITH 5YR LOOKBACK (#1) [facility] Start: 08-28-1995 Pneumococcal Vaccine : 50+ (1 of 1 - PCV) Pneumococcal Vaccine: 50+ (1 of 1 - PCV) [facility] Start: 08-28-1995 SHINGRIX VACCINE (1 of 2) QUINTERO GRIX VACCINE (1 of 2) [facility] Start: 08-28-1995 Tuberculosis screening COLOREC SLIME CANCER SCREENING,SEE MODIFIER [facility] Start: 1990 DIABETES SCREEN DIABETES SCREEN [facility] Start: 1990 Diabetes Screening Diabetes Screenin g [facility] Start: 1980 LIPID SCREEN LIPID SCREEN [facility] Start: 1964 Urine microalbumin profile [facility] Start: 08-28-1963 ANNUAL PCP TEAM CEILING INSULATION BLOWER ESEQUIEL DISEASE VISIT ANNUAL PCP TEAM CHRONIC DISEASE VISIT [facility] Start: 08-28-1963 Anxiety Screening Anxiety Screening [facility] Start: 08-28-1963 BP CONTROLLED (<130/80) BP CONTROLLE D (<130/80) [facility] Start: 08-28-1963 Depression Screening Depression Scre ening [facility] Start: 08-28-1963 HEPATITIS C SCREENING HEPATITIS C LIVIA MELENDEZ [facility] Cancer antigen 19-9 measurement [facility] Colonoscopy [facility] End: 01-11-2026 CT Head WO contrast CT BRAIN WO IVCON Radiology Routine Encounter for preprocedural cardiovascular examination S/P aortic valve replacement S/P CABG (coronary artery bypass graft) Hypertension, unspecified type Nodular goiter Right sided weakness H/O: stroke Chronic myeloid leukemia (HCC) Unspecified hypothyroidism 1 Occurrences starting 12/12/2024 until 01/11/2026 [facility] Comment on above: 1 Occurrences starti ng 12/12/2024 until 01/11/2026 End: 01-11-2026 CTA Chest vessels W contrast IV CTA CHEST (GATED) W IVCON Radiology Routine Encounter for preprocedural cardiovascular examination S/P aortic valve replacement S/P CABG (coronary artery bypass graft) Hypertension, unspecified type Nodular goiter Right sided weakness H/O: stroke Chronic myeloid leukemia (HCC) Unspecified hypothyroidism 1 Occurrences starting 12/12/2024 until 01/11/2026 [facility] Comment on above: 1 Occurrences starti ng 12/12/2024 until 01/11/2026 End: 12-12-2025 ECG COMPLETE ECG COMPLETE ECG Routine Encounter for preprocedural cardiovascular examination S/P aortic valve replacement S/P CABG (coronary artery bypass graft) Hypertension, unspecified type Nodular goiter Right sided weakness H/O: stroke Chronic myeloid leukemia (HCC) Unspecified hypothyroidism 1 Occurrences starting 12/12/2024 until 12/12/2025 [facility] Comment on above: 1 Occurrences starti ng 12/12/2024 until 12/12/2025 End: 12-12-2025 Echocardiography ECHO Cardiology Routine Encounter for preprocedural cardiovascular examination S/P aortic valve replacement S/P CABG (coronary artery bypass graft) Hypertension, unspecified type Nodular goiter Right sided weakness H/O: stroke Chronic myeloid leukemia (HCC) Unspecified hypothyroidism 1 Occurrences starting 12/12/2024 until 12/12/2025 [facility] Comment on above: 1 Occurrences starti ng 12/12/2024 until 12/12/2025 Patient Education ED Dyspnea ED Viral Syndrome (Adult) [facility] Work Phone: Patient referral [facility] Work Phone: End: 12-12-2025 US Breast - bilateral US [facility] Vascular Lab Routine Encounter for preprocedural cardiovascular examination S/P aortic valve replacement S/P CABG (coronary artery bypass graft) Hypertension, unspecified type Nodular goiter Right sided weakness H/O: stroke Chronic myeloid leukemia (HCC) Unspecified hypothyroidism 1 Occurrences starting 12/12/2024 until 12/12/2025 [facility] Comment on above: 1 Occurrences starti ng 12/12/2024 until 12/12/2025 End: 12-12-2025 US Carotid arteries - bilateral US CAROTID ARTERIES [facility] Vascular Lab Routine Encounter for preprocedural cardiovascular examination S/P aortic valve replacement S/P CABG (coronary artery bypass graft) Hypertension, unspecified type Nodular goiter Right sided weakness H/O: stroke Chronic myeloid leukemia (HCC) Unspecified hypothyroidism 1 Occurrences starting 12/12/2024 until 12/12/2025 [facility] Comment on above: 1 Occurrences starti ng 12/12/2024 until 12/12/2025 End: 12-12-2025 US LEG VEIN MAP [facility] US LEG VEIN MAP [facility] V[facility] Lab Routine Encounter for preprocedural cardiovascular examination S/P aortic valve replacement S/P CABG (coronary artery bypass graft) Hypertension, unspecified type Nodular goiter Right sided weakness H/O: stroke Chronic myeloid leukemia (HCC) Unspecified hypothyroidism 1 Occurrences starting 12/12/2024 until 12/12/2025 [facility] Comment on above: 1 Occurrences starti ng 12/12/2024 until 12/12/2025 End: 12-12-2025 US Upper extremity artery - bilateral US RADIAL ARTERY MAP [facility] V[facility] Lab Routine Encounter for preprocedural cardiovascular examination S/P aortic valve replacement S/P CABG (coronary artery bypass graft) Hypertension, unspecified type Nodular goiter Right sided weakness H/O: stroke Chronic myeloid leukemia (HCC) Unspecified hypothyroidism 1 Occurrences starting 12/12/2024 until 12/12/2025 [facility] Comment on above: 1 Occurrences starti ng 12/12/2024 until 12/12/2025 Immunizations Immunization Date Immunization Notes Care Provider Ana harley 05-19-2023 Influenza High-Dose Quadrivalent [facility] Payers Date Payer Category Payer Private Health Insurance [facility] [employer] [id number] 2023 Medicare [id number] 2023 Self-pay [id number] 2008 Medicare MEDICARE A ONLY [id number] 2008 Unknown [id number] 1945 Unknown [id number]. [id number] Unknown [id number] [id number]. 2.462 Unknown [id number] [id number]. 2.462 Unknown [id number] [id number]. 2.462 Unknown [id number] [id number]. 2.462 Unknown [id number] [id number]. 2.462 Unknown [id number] [id number]. 2.462 Unknown [id number] [id number]. 2.462 Unknown [id number] [id number]. 2.462 Unknown [id number] [id number]. 2.462 Unknown [id number] [id number]. 2.462 Unknown [id number] [id number]. 2.462 Unknown [id number] [id number]. 2.462 Unknown [id number] [id number]. 2.462 Social History Date Type Detail Facility Tobacco smoking stat us [facility]IS Unknown if ever smoked [facility] Start: 1945 Sex Assigned At Not on file [facility] Ex-smoker (finding) [facility] Sex Assigned At [facility] Start: 07-09-2022 End: 05-19-2023 Tobacco smoking status NHIS Unknown if ever smoked [facility] Start: 01-10-2020 None [facility] Start: 01-10-2020 With Family [facility] Start: 1945 Sex Assigned At Male [facility] History of tobacco use Current smoker [facility] History of tobacco use Cigarette Smoker C [facility] Start: 12-15-2021 Alcoholic beverage intake Current non-drinker of alcohol (finding) [facility] Gender identity Not on file [facility] Start: 04-01-2012 Sex Male [facility] Goals Date Patient Goal Desired Activity /State Functional Status Date Assessment Result Facility 02-10-2024 Functional Status Independent [facility] 02-10-2024 Functional Status Awake [facility] 05-23-2023 Functional status Patient Activity Chair [facility] Work Phone: 05-23-2023 Functional status With Assist of 1 [facility] Work Phone: Mental Status Date Assessment Result Facility 02-10-2024 Mental Status Orientation Oriented x 4 [facility] 02-10-2024 Mental Status [facility] 05-23-2023 Cognitive function Voice/Name [facility] Work Phone: 01-13-2023 Cognitive function Voice/Name [facility] Work Phone: Clinical Notes 04-22-2021 to 12-12-2024 Telephone Encounter - Aicha Oconnor RN - 12/12/2024 8:22 AM EDTTelephone Encounter - Aicha Oconnor RN - 12/12/2024 8:22 AM EDTTelephone Encounter - Joann Parikh - 12/09/2024 10:39 AM EDT Note Date & Type Note Facility 12-12-2024 Telephone encounter Note Day 1 Cards, CTA, Echo, EKG, Labs, Mapping, Heme, Head CT, carotids Day [address] Ramirez (Mapping, CTA can be done before if can't get Day1) Please call to schedule [email or web address] Called patient to inform them that Dr. Ramirez reviewed information and is recommending in person testing and eval. Patient was informed of the need for further testing. Spoke to pateints and she stated that they would like to come [email or web address] Orders placed Aicha Oconnor RN [facility] 12-12-2024 Miscellaneous Notes Day 1 Cards, CTA, Echo, EKG, Labs, Mapping, Heme, Head CT, carotids Day [address] Ramirez (Mapping, CTA can be done before if can't get Day1) Please call to schedule [email or web address] Called patient to inform them that Dr. Ramirez reviewed information and is recommending in person testing and eval. Patient was informed of the need for further testing. Spoke to pateints and she stated that they would like to come abdulkadir Orders placed Aicha Oconnor RN NPM reviewed Aicha Oconnor RN LOCAL PATIENT Received Call from Self Juaquin Khalil is being referred to Alexander Ramirez M.D. by No referring provider defined for this encounter. Phone: N/A Fax: Patient diagnosis/Reason for consult: Aortic valve surgery per patient. Referral triage process explained: Yes Patient will receive a call from Cardiac NPM after triage review with surgeon to discuss any additional testing and/or consults that will be scheduled. Pt will then receive a call from our scheduling office for scheduling. Please call pt at [phone]. Patient Registration: Registration complete/updated: yes Insurance card(s) scanned in [facility] with in the past year: Yes: Date: 11/29/24 Pt's Arzeda is inactive. Ok to communicate to pt via Arzeda not asked Medical Records: Records in [facility] (internal [facility] records): No Imaging in [facility] (internal [facility] records): No Care Everywhere - queried yes, downloaded N/A Linked Outside Organizations (list): [facility] OSH Records Requested: yes Date: 12/04/24 Outside Hospital(s) requested records from: [facility] Received: yes Uploaded: Yes. Waiting on additional records: No. Missing (list): N/A OS Radiology Imaging Requested: no Date: N/A Outside Hospital(s) requested imaging from: [facility]. Imaging will be received via Electronic Transfer Received: yes Imaging uploaded: Yes via Electronic Transfer Waiting on additional: No. Missing (list): N/A Additional providers added to Care Teams: Yes Additional Notes/Comments: Images uploaded, routed to NPM. Enct routed to: No Joann Parikh 12/04/24 - images received Re faxed the request for the images and the ECHO report for 01/19/24. Per Christine, the PACs system is down and they do not have an expected date of when it will be back up. Fax reports - [phone] Images - [phone] Joann Parikh Referral was received on 11/18, spoke with patient and spouse to get insurance card, images and reports. Waiting for images. Joann Parikh documented in this encounter [facility] 12-10-2024 Telephone encounter Note NPM reviewed Aicha Oconnor RN [facility] 12-09-2024 Telephone encounter Note LOCAL PATIENT Received Call from Self Juaquin Khalil is being referred to Alexander Ramirez M.D. by No referring provider defined for this encounter. Phone: N/A Fax: Patient diagnosis/Reason for consult: Aortic valve surgery per patient. Referral triage process explained: Yes Patient will receive a call from Cardiac NPM after triage review with surgeon to discuss any additional testing and/or consults that will be scheduled. Pt will then receive a call from our scheduling office for scheduling. Please call pt at [phone]. Patient Registration: Registration complete/updated: yes Insurance card(s) scanned in [facility] with in the past year: Yes: Date: 11/29/24 Pt's Arzeda is inactive. Ok to communicate to pt via Arzeda not asked Medical Records: Records in [facility] (internal [facility] records): No Imaging in [facility] (internal [facility] records): No Care Everywhere - queried yes, downloaded N/A Linked Outside Organizations (list): [place] [facility] Records Requested: yes Date: 12/04/24 Outside Hospital(s) requested records from: [place] [facility] Received: yes Uploaded: Yes. Waiting on additional records: No. Missing (list): N/A OS Radiology Imaging Requested: no Date: N/A Outside Hospital(s) requested imaging from: [place] [facility]. Imaging will be received via Electronic Transfer Received: yes Imaging uploaded: Yes via Electronic Transfer Waiting on additional: No. Missing (list): N/A Additional providers added to Care Teams: Yes Additional Notes/Comments: Images uploaded, routed to [facility]. Enct routed to: No Joann Parikh T [facility] 12-04-2024 Telephone encounter Note 12/04/24 - images received [facility] 11-28-2024 Telephone encounter Note Re faxed the request for the images and the ECHO report for 01/19/24. Per Christine, the PACs system is down and they do not have an expected date of when it will be back up. Fax reports - [phone] Images - [phone] Joann Parikh [facility] 11-28-2024 Telephone encounter Note Referral was received on 11/18, spoke with patient and spouse to get insurance card, images and reports. Waiting for images. Joann Parikh [facility] 11-15-2024 Telephone encounter Note Sohail w/Mrs. Khalil. She stated [facility], [facility], they are authorizing pt to come to [facility]. I explained they need to send us the Auth number and form along with records and imaging. She has nothing. I gave pt my phone and fax number for [facility] to [facility]. Pt thanked me and call ended. [facility] 11-15-2024 Miscellaneous Notes Sohail w/Mrs. Khalil. She stated [facility]'s [facility], they have everything, they are authorizing pt to come to [facility]. I explained they need to send us the Auth number and form along with records and imaging. She has nothing. I gave pt my phone and fax number for [facility]. Pt thanked me and call ended. documented in this encounter [facility] 02-10-2024 Hospital Discharg e instructions Patient Education 02/10/2024 15:36:44 Fracture, Shoulder Shoulder Fracture You have a break (fracture) of the shoulder. This may be a small crack in the bone. Or it may be a major break with the broken parts pushed out of position. If you have only a crack in the bone and no bone fragments are out of place, you will probably be treated with a shoulder immobilizer. This is a special type of sling. Casts are usually not used for this type of fracture. Your bone should heal in 4 to 8 weeks. More serious injuries may need surgery to put the bones back into the correct position for healing. Home care Follow these tips to care for yourself at home: Leave the shoulder immobilizer in place. This will support the injured arm at your side. This is the best position for the bone to heal. The shoulder immobilizer is adjustable. If it becomes loose, adjust it so that your forearm is level with the ground (horizontal). Your hand should be level with your elbow. Apply an ice pack to the injured area for 20 minutes every 1 to 2 hours the first day. You can make an ice pack by putting ice cubes in a plastic bag. A bag of frozen peas or something similar works well too. Wrap the bag in a towel before putting it on your shoulder. Continue with ice packs 3 to 4 times a day for the next 2 to 3 days. Then use the ice as needed to relieve pain and swelling. You may take acetaminophen or ibuprofen to relieve pain, unless another pain medicine was prescribed. If you have chronic liver or kidney disease or ever had a stomach ulcer or gastrointestinal bleeding, talk with your doctor before using these medicines. Don t take the sling off before your next exam unless you were told to do so. Ask if you should move your elbow, wrist, and hand. Follow-up care Follow up with your healthcare provider, or as advised. A shoulder joint will become stiff if left in a sling for too long. Ask your doctor when it is safe to begin [id number] exercises. When to seek medical advice Call your healthcare provider right away if any of these occur: Your fingers become swollen, cold, blue, numb, or tingly Your shoulder or upper arm swells a lot or looks very bruised The pain in your shoulder gets worse The splint or immobilizer breaks You have a fever or chills 4699-3963 [employer] [address] [place] [address]. All rights reserved. This information is not intended as a substitute for professional medical care. Always follow your healthcare professional's instructions. 02/10/2024 15:36:41 Fall, Mechanical Mechanical Fall You have had a fall today. It appears that the cause is what is called mechanical. That means that you slipped, tripped, or lost your balance. If your fall had been because of fainting or a seizure, you might need other tests. It is normal to feel sore and tight in your muscles and back the next day, and not just the muscles you injured at first. Remember, all the parts of your body are connected, so while initially one area hurts, the next day another may hurt. Also, when you injure yourself, it causes inflammation, which then causes the muscles to tighten up and hurt more. After the initial worsening, it should gradually improve over the next few days. Do report more severe pain. Even without a definite head injury, you can still get a concussion from your head suddenly jerking forward, backward, or sideways when falling. Concussions and even bleeding can still happen, especially if you have had a recent injury or take blood thinner medicine. It is not unusual to have a mild headache and feel tired and even nauseous or dizzy. Home care Rest today and go back to your normal activities when you are feeling back to normal. If you were injured during the fall, follow the advice from your healthcare provider regarding care of your injury. At first, do not try to stretch out the sore spots. If there is a strain, stretching may make it worse. Massage may help relax the muscles without stretching them. You can use an ice pack or cold compress on and off to the sore spots 10 to 20 minutes at a time, as often as you feel comfortable. This may help reduce the inflammation, swelling and pain. If you have any scrapes or abrasions, they usually heal within 10 days. It is important to keep the abrasions clean while they initially start to heal. However, an infection may happen even with proper care, so watch for early signs of infection (such as warmth, redness, or swelling). Medicines Talk to your healthcare provider before taking new medicines, especially if you have other medical problems or are taking other medicines. If you need anything for pain, you can take acetaminophen or ibuprofen, unless you were given a different pain medicine to use. Talk with your healthcare provider before using these medicines if you have chronic liver or kidney disease, or ever had a stomach ulcer or gastrointestinal bleeding, or are taking blood thinner medicines. Be careful if you are given prescription pain medicines, narcotics, or medicine for muscle spasm. They can make you sleepy and dizzy, and can affect your coordination, reflexes, and judgment. Do not drive or do work where you can injure yourself when taking them. Fall prevention Fix, remove, or replace anything that caused your fall. Make your home safe by keeping walkways clear of objects you may trip over. Use nonslip pads under rugs. Don't use small area rugs or throw rugs. Don't walk in poorly lit areas. Don't stand on chairs or wobbly ladders. Use caution when reaching overhead or looking upward. This position can cause a loss of balance. Be sure your shoes fit properly, have nonslip bottoms and are in good condition. Be cautious when going up and down curbs, and walking on uneven sidewalks. If your balance is poor, consider using a cane or walker. Stay as active as you can. Balance, flexibility, strength, and endurance all come from exercise. They all play a role in preventing falls. If you have pets, know where they are before you stand up or walk so you don't trip over them. Limit alcohol intake. Alcohol can cause balance problems and increase the risk of falls. Use night lights. Have your eyes tested to be sure you are seeing well, even if you already wear glasses. Follow-up Follow up with your healthcare provider, or as advised. If X-rays or CT scans were done, you will be notified if there is a change in the reading, especially if it affects treatment. Call 911 Call 911 if any of these happen: Trouble breathing Confused or difficulty arousing Fainting or loss of consciousness Rapid or very slow heart rate Seizure Difficulty with speech or vision, weakness of an arm or leg Difficulty walking or talking, loss of balance, numbness or weakness in one side of your body, or facial droop When to seek medical advice Call your healthcare provider right away if any of these happen: Repeated mechanical falls, or unexplained falls Dizziness Severe headache Blood in vomit, stools (black or red color) 2498-8465 [employer] [address] [place] [address]. All rights reserved. This information is not intended as a substitute for professional medical care. Always follow your healthcare professional's instructions. Follow Up Care 02/10/2024 12:22:18 With:[place] Address: [address] [place] [address] [place] [address]- When:2-4 days [facility] 02-10-2024 Note Discharge Instructions Thank you for allowing [facility] to assist you with your healthcare needs. The following is important discharge information regarding your hospital visit. Diagnosis from Today's Visit Accident due to mechanical fall without injury Fracture of greater tuberosity of humerus What to Do Next Instructions from Your Care Team Discharge Home Equipment - Ordered -- Sling, Arm Right, 99 month(s), 02/10/24 15:10:00 EDT Post Acute Orders No qualifying data available. You Need to Schedule the Following Appointments Follow Up with [place], [facility] When:Within 2-4 days Where:[address] [place] [address] [place] [address]- Allergies Vicodin(Severe) Tachycardia Medications Please ask your primary doctor or pharmacist before taking any other medication not listed, including over the counter drugs, herbal medications, vitamins and or supplements as they may interact with your home medications. What How Much When Why Instructions Last Dose Unchanged acetaminophen (Tylenol 325 mg oral tablet) 2 tab(s) by mouth Every 4 hours as needed for as needed for pain Unchanged acetaminophen-oxyCODONE (Percocet 5 mg-325 mg oral tablet) 1 tab(s) by mouth Every 4 hours as needed for for pain Open multiple fractures of hand bones Duration: 5 Days Unchanged allopurinol (allopurinol 100 mg oral tablet) 1 tab(s) by mouth Once a day Unchanged ascorbic acid (Vitamin C 250 mg oral tablet) 1 tab(s) by mouth Three (3) times a day Unchanged aspirin (aspirin 81 mg oral delayed release tablet) 1 tab(s) by mouth Once a day Unchanged atorvastatin (Lipitor 80 mg oral tablet) 0.5 tab(s) by mouth Two (2) times a day Unchanged calcium carbonate-magnesium hydroxide (Rolaids 550 mg-110 mg oral tablet, chewable) 2 tab(s) by mouth Every hour as needed for as needed to control stomach acid Unchanged cyanocobalamin (Vitamin B12 1000 mcg oral tablet) 1 tab(s) by mouth Once a day Unchanged docusate (Colace 100 mg oral capsule) 1 cap by mouth Two (2) times a day as needed for as needed for constipation Unchanged ergocalciferol (Vitamin D2 50,000 intl units capsule) 1 cap by mouth Every Monday Unchanged ferrous sulfate (ferrous sulfate 325 mg (65 mg elemental iron) oral tablet) 1 tab(s) by mouth Three (3) times a day Unchanged levothyroxine (Synthroid 25 mcg (0.025 mg) oral tablet) 1 tab(s) by mouth Once a day before a meal Unchanged metoprolol (metoprolol tartrate 25 mg oral tablet) 1 tab(s) by mouth Two (2) times a day Unchanged nortriptyline (nortriptyline 25 mg oral capsule) 1 cap by mouth Daily at bedtime Unchanged pantoprazole (Protonix 40 mg oral enteric coated tablet) 1 tab(s) by mouth Once a day before a meal Unchanged ranitidine (ranitidine 300 mg oral tablet (NF)) 1 tab(s) by mouth Daily at bedtime Unchanged sucralfate (Carafate 1 g oral tablet) 1 tab(s) by mouth Four (4) times daily-before meals and at bedtime Duration: 30 Days Unchanged warfarin (Coumadin 2 mg oral tablet) 1 tab(s) by mouth Once a day Please take this list to your next doctor s visit. Bring all medications you take, including over the counter medications, herbals and other supplements with you to your doctor s visit. Patients and families are reminded to discard old lists and to update any records with all medication providers or retail pharmacies. Education Materials Shoulder Fracture You have a break (fracture) of the shoulder. This may be a small crack in the bone. Or it may be a major break with the broken parts pushed out of position. If you have only a crack in the bone and no bone fragments are out of place, you will probably be treated with a shoulder immobilizer. This is a special type of sling. Casts are usually not used for this type of fracture. Your bone should heal in 4 to 8 weeks. More serious injuries may need surgery to put the bones back into the correct position for healing. Home care Follow these tips to care for yourself at home: Leave the shoulder immobilizer in place. This will support the injured arm at your side. This is the best position for the bone to heal. The shoulder immobilizer is adjustable. If it becomes loose, adjust it so that your forearm is level with the ground (horizontal). Your hand should be level with your elbow. Apply an ice pack to the injured area for 20 minutes every 1 to 2 hours the first day. You can make an ice pack by putting ice cubes in a plastic bag. A bag of frozen peas or something similar works well too. Wrap the bag in a towel before putting it on your shoulder. Continue with ice packs 3 to 4 times a day for the next 2 to 3 days. Then use the ice as needed to relieve pain and swelling. You may take acetaminophen or ibuprofen to relieve pain, unless another pain medicine was prescribed. If you have chronic liver or kidney disease or ever had a stomach ulcer or gastrointestinal bleeding, talk with your doctor before using these medicines. Don t take the sling off before your next exam unless you were told to do so. Ask if you should move your elbow, wrist, and hand. Follow-up care Follow up with your healthcare provider, or as advised. A shoulder joint will become stiff if left in a sling for too long. Ask your doctor when it is safe to begin [id number] exercises. When to seek medical advice Call your healthcare provider right away if any of these occur: Your fingers become swollen, cold, blue, numb, or tingly Your shoulder or upper arm swells a lot or looks very bruised The pain in your shoulder gets worse The splint or immobilizer breaks You have a fever or chills [id number] [employer] [address] [place] [address], [place] [address]. All rights reserved. This information is not intended as a substitute for professional medical care. Always follow your healthcare professional's instructions. Mechanical Fall You have had a fall today. It appears that the cause is what is called mechanical. That means that you slipped, tripped, or lost your balance. If your fall had been because of fainting or a seizure, you might need other tests. It is normal to feel sore and tight in your muscles and back the next day, and not just the muscles you injured at first. Remember, all the parts of your body are connected, so while initially one area hurts, the next day another may hurt. Also, when you injure yourself, it causes inflammation, which then causes the muscles to tighten up and hurt more. After the initial worsening, it should gradually improve over the next few days. Do report more severe pain. Even without a definite head injury, you can still get a concussion from your head suddenly jerking forward, backward, or sideways when falling. Concussions and even bleeding can still happen, especially if you have had a recent injury or take blood thinner medicine. It is not unusual to have a mild headache and feel tired and even nauseous or dizzy. Home care Rest today and go back to your normal activities when you are feeling back to normal. If you were injured during the fall, follow the advice from your healthcare provider regarding care of your injury. At first, do not try to stretch out the sore spots. If there is a strain, stretching may make it worse. Massage may help relax the muscles without stretching them. You can use an ice pack or cold compress on and off to the sore spots 10 to 20 minutes at a time, as often as you feel comfortable. This may help reduce the inflammation, swelling and pain. If you have any scrapes or abrasions, they usually heal within 10 days. It is important to keep the abrasions clean while they initially start to heal. However, an infection may happen even with proper care, so watch for early signs of infection (such as warmth, redness, or swelling). Medicines Talk to your healthcare provider before taking new medicines, especially if you have other medical problems or are taking other medicines. If you need anything for pain, you can take acetaminophen or ibuprofen, unless you were given a different pain medicine to use. Talk with your healthcare provider before using these medicines if you have chronic liver or kidney disease, or ever had a stomach ulcer or gastrointestinal bleeding, or are taking blood thinner medicines. Be careful if you are given prescription pain medicines, narcotics, or medicine for muscle spasm. They can make you sleepy and dizzy, and can affect your coordination, reflexes, and judgment. Do not drive or do work where you can injure yourself when taking them. Fall prevention Fix, remove, or replace anything that caused your fall. Make your home safe by keeping walkways clear of objects you may trip over. Use nonslip pads under rugs. Don't use small area rugs or throw rugs. Don't walk in poorly lit areas. Don't stand on chairs or wobbly ladders. Use caution when reaching overhead or looking upward. This position can cause a loss of balance. Be sure your shoes fit properly, have nonslip bottoms and are in good condition. Be cautious when going up and down curbs, and walking on uneven sidewalks. If your balance is poor, consider using a cane or walker. Stay as active as you can. Balance, flexibility, strength, and endurance all come from exercise. They all play a role in preventing falls. If you have pets, know where they are before you stand up or walk so you don't trip over them. Limit alcohol intake. Alcohol can cause balance problems and increase the risk of falls. Use night lights. Have your eyes tested to be sure you are seeing well, even if you already wear glasses. Follow-up Follow up with your healthcare provider, or as advised. If X-rays or CT scans were done, you will be notified if there is a change in the reading, especially if it affects treatment. Call 911 Call 911 if any of these happen: Trouble breathing Confused or difficulty arousing Fainting or loss of consciousness Rapid or very slow heart rate Seizure Difficulty with speech or vision, weakness of an arm or leg Difficulty walking or talking, loss of balance, numbness or weakness in one side of your body, or facial droop When to seek medical advice Call your healthcare provider right away if any of these happen: Repeated mechanical falls, or unexplained falls Dizziness Severe headache Blood in vomit, stools (black or red color) 4828-7220 [employer] [address] [place] [address], [place] [address]. All rights reserved. This information is not intended as a substitute for professional medical care. Always follow your healthcare professional's instructions. Additional Information VACCINATE! IT SAVES LIVES! Members of the community who have not yet received the COVID-19 vaccine and would like to receive it can visit one of [facility] vaccine clinics. There are many vaccine clinic locations within the [facility]. For locations and available times, please visit [email or web address].[place]. gov/. It is important to note that some COVID mobile vaccine clinics are held outdoors and may be canceled in rainy or stormy conditions. To learn more about pediatric vaccinations (ages 5-11), we invite you to visit the [facility] webpage. https://www.langtaojins.org/p ages/3363-Rljev-Lzgurutvjge-Freq ijvgdk-Bitww-Pcopokhmj.html To learn more about the COVID-19 vaccine, we invite you to visit the CDC website for a list of frequently asked questions. https://www.cdc.gov/coronavirus/ 2019-ncov/vaccines/faq.html [facility] Patient Portal Access Instructions: Stay connected with your healthcare team and access your personal medical information anytime with the [facility] Patient Portal. If you would like a full copy of your medical records please contact the [facility] Medical Records Department Monday through Monday between 8a.m. and 4:30p.m. Please follow the directions below to access the portal: 1.Access the email account you provided upon registration to the hospital.2.Look for an invitation email from [facility].3.Open the email and access the invitation link: Accept Invitation to [facility]4.Fill in the required schulte to create your account. Sign into www.[employer] with your username and password that you created in the above steps to stay up to date. You can then view a summary of results, a summary of your visits, and the ability to download your summaries to your computer or send the information securely to a physician. Remember that your healthcare information is confidential, so carefully consider who you will allow to register on the [facility] Patient Portal for access to your information. You can also access the [facility] Patient Portal on the [employer]. Simply click on Health Records under Health Data and then click on the [employer] logo. HOW TO SAFELY DISPOSE OF PRESCRIPTION MEDICATIONS Please use one of the following methods to safely dispose of your unused medications. 1.Use a drug disposal kit: the drug disposal pouch allows you to safely discard your old and unused drugs. Ask your nurse to give you one when you are discharged.2.Visit a local take-back location: Many local pharmacies and police departments have programs that collect old and unwanted prescription drugs. Call your local pharmacy or go to http://Truzip.[employer] Technology/9B4Ud3m to find one close to you.3.Make use of household items: Use cat litter or old coffee grounds to dispose medications if other options are not available. Mix your drugs with these household products, seal them in an airtight container and throw it into the garbage. Call [facility]: [phone] to be sure your drugs can be disposed of in this way. Some medicines may require a different approach.4.Never flush your medications down the toilet. IF YOU HAVE BEEN PRESCRIBED AN OPIOIDS FOR PAIN If you have been prescribed an opioid (such as hydrocodone, oxycodone or morphine), it is critical to understand the possible side effects and risks of opioid pain medications. Even when taken as directed, opioids can have several side effects including: Tolerance, meaning you might need to take more of a medication for the same pain relief. Nausea, vomiting and/or constipation. Sleepiness, dizziness, dry mouth, confusion, depression or itching. Physical dependence, meaning you have withdrawal symptoms when a medication is stopped ? this can develop within a few days. KNOW YOUR RESPONSIBILITIES It is important to know exactly how much and how often to take the opioid pain medications you are prescribed. Never take opioids in higher amounts or more often than prescribed. Do not combine opioids with alcohol or other drugs that cause drowsiness, such as benzodiazepines, also known as benzos, including diazepam and alprazolam, muscle relaxants or sleep aids. Never sell or share prescription opioids. This is illegal. Store opioids in a secure place and out of reach of others (including children, family, friends and visitors). The last page(s) of this document has been signed and retained as a CHART COPY Signatures Patient Education Materials Fracture, Shoulder Fall, Mechanical Medication Leaflets My discharge plan and instructions have been reviewed and explained to me and I,REMI, JUAQUIN E understand my current condition and have read and understand these discharge instructions. I have received a written copy of the plan/instructions. If I have questions, I am aware that I should contact my doctor. Patient/Replenishment Specialist Signature: Date/Time: Relationship to Patient: Witness Name/Signature: Date/Time: [facility] 02-10-2024 Note ORIGINAL EXAMINATION: 2 XRAY VIEWS OF THE RIGHT HIP, VIEWS OF THE PELVIS 1 VIEWS OF THE PELVIS. COMPARISON: CT abdomen and pelvis 03/02/2018. HISTORY: ORDERING SYSTEM PROVIDED HISTORY: Reason for Exam: fall FINDINGS: Limited evaluation of the pelvis due to rotation. The pelvic ring appears intact. Partially visualized left proximal femoral nail is noted. Few right proximal femoral nails are noted. No evidence of acute fracture or dislocation. Vertebroplasty changes are noted within the lower lumbar spine. IMPRESSION: No acute fracture or dislocation. Interpreted by: Ramana Chan Preliminary Report By: Ramana Chan Electronically signed By Ramana Chan Dictated Date: 02/10/2024 2:06:04 PM Prelim Date: 02/10/2024 2:08:04 PM Sign Date: 02/10/2024 2:08:04 PM Ordering Provider: RORY GONZALES [facility] 02-10-2024 Note ORIGINAL EXAMINATION: TWO XRAY VIEWS OF THE RIGHT SHOULDER 02/10/2024 1:55 pm COMPARISON: None. HISTORY: ORDERING SYSTEM PROVIDED HISTORY: Reason for Exam: fall FINDINGS: The humeral head appears appropriately seated within the glenoid. There is some cortical irregularity along the greater tuberosity without significant displacement. The acromioclavicular and coracoclavicular distances are maintained. Moderate degenerative changes of the right acromioclavicular joint. The included thoracic structures are unremarkable. IMPRESSION: Suspect nondisplaced fracture of the right humeral greater tuberosity. Interpreted by: Ramana Chan Preliminary Report By: Ramana Chan Electronically signed By Ramana Chan Dictated Date: 02/10/2024 2:01:07 PM Prelim Date: 02/10/2024 2:05:47 PM Sign Date: 02/10/2024 2:05:47 PM Ordering Provider: [facility] 02-10-2024 Note ORIGINAL EXAMINATION: CT OF THE CERVICAL SPINE WITHOUT CONTRAST 02/10/2024 1:54 pm TECHNIQUE: CT of the cervical spine was performed without the administration of intravenous contrast. Multiplanar reformatted images are provided for review. Automated exposure control, iterative reconstruction, and/or weight based adjustment of the mA/kV was utilized to reduce the radiation dose to as low as reasonably achievable. COMPARISON: None. HISTORY: ORDERING SYSTEM PROVIDED HISTORY: Reason for Exam: pain; trauma patient FINDINGS: Cervical vertebra show normal height and alignment. Scattered degenerative changes are present, including C1-2. Scattered sclerotic foci are noted, largest within the C7 vertebra. No acute fracture is visible. No additional contributory abnormality seen. IMPRESSION: 1. Minor degenerative changes. 2. No acute fracture seen. 3. Scattered sclerotic osseous foci. These may represent bone islands. Is there a history of malignancy to suggest blastic metastatic disease? Interpreted by: Sushil Bolden MD Preliminary Report By: Sushil Bolden MD Electronically signed By Sushil Bolden MD Dictated Date: 02/10/2024 2:06:25 PM Prelim Date: 02/10/2024 2:11:14 PM Sign Date: 02/10/2024 2:11:14 PM Ordering Provider: RORY [facility] 02-10-2024 Note ORIGINAL EXAMINATION: CT OF THE HEAD WITHOUT CONTRAST 02/10/2024 1:54 pm TECHNIQUE: CT of the head was performed without the administration of intravenous contrast. Automated exposure control, iterative reconstruction, and/or weight based adjustment of the mA/kV was utilized to reduce the radiation dose to as low as reasonably achievable. COMPARISON: February 25, 2014 HISTORY: ORDERING SYSTEM PROVIDED HISTORY: Reason for Exam: pain; trauma patient FINDINGS: Mild frontal hyperostosis is present. No calvarial fracture is evident. Within the brain, no hemorrhage or mass is visible. Left-sided encephalomalacia is present from a previous left MCA distribution infarct. Sulci and de la cruz-white junctions elsewhere are preserved. No additional contributory abnormality identified. IMPRESSION: Remote left MCA distribution infarct. No acute abnormality identified. Interpreted by: Sushil Bolden MD Preliminary Report By: Sushil Bolden MD Electronically signed By Sushil Bolden MD Dictated Date: 02/10/2024 2:04:31 PM Prelim Date: 02/10/2024 2:06:15 PM Sign Date: 02/10/2024 2:06:15 PM [facility] Discharge summary Note Date/Time May 23, 2023 11:54am [facility] Medical Records Department [address] [facility] [place] [address] Discharge Summary 05/23/23 1151 MR#: [id number] Acct: [id number] Name: JUAQUIN KHALIL Katy Rep #:[id number] : 1945 77 From: Desmond Castaneda MD PCP: [place] Status:ADM IN Location: [facility] [id number] Providers Date of Admission: 05/19/23 Date of Discharge: 05/23/23 Primary Care Physician: [facility] Consultations 05/19/23 00:24 Consult: Gastroenterology Routine Consulting Provider: Autumn Gastroenterjoe Reason for Consult: Pancreatic head mass on CT EMERGENT Consult: No Notified: Yes Date Notified: 05/19/23 Time Notified: 06:51 Method of Notification: Text 05/20/23 15:12 Consult: Cardiology Routine Consulting Provider: Chester Montano Reason for Consult: Mass on mechanical AV on TTE, EDGAR recommended EMERGENT Consult: No Notified: Yes Date Notified: 05/20/23 Time Notified: 15:41 Method of Notification: Text Reason For Visit: PNEUMONIA, AE CHF AND PANCREATIC HEAD MASS Diagnosis Discharge Diagnosis (1) CHF exacerbation: Status: Chronic Code(s): I50.9 - Heart failure, unspecified Qualifiers: Heart failure type: unspecified Qualified Code(s): I50.9 - Heart failure, unspecified (2) Mass of head of pancreas: Status: Acute Code(s): K86.89 - Other specified diseases of pancreas (3) Aortic valve mass: Status: Acute Code(s): I35.8 - Other nonrheumatic aortic valve disorders (4) Leukocytosis: Status: Acute Code(s): D72.829 - Elevated white blood cell count, unspecified (5) Hypoxia: Status: Acute Code(s): R09.02 - Hypoxemia Plan Patient is a 77-year-old male who presented to [facility] ED on 05/18/2023 with worsening cough and shortness of breath. 1. Acute on chronic congestive heart failure ? Patient presented with significant hypoxia CT demonstrated bilateral pleural effusion patient has been managed with diuretics. TTE obtained on 05/20/2023 demonstrated EF of 55 to 60% was also found to have a moderate size Hyperechogenic structure noted in mechanical aortic valve -? 05/23/2023; EDGAR performed the day prior did not reveal any vegetation. 2. A moderate size Hyperechogenic structure noted in mechanical aortic valve -Patient is scheduled to undergo EDGAR to add a renal rule out endocarditis patient remains on broad-spectrum antibiotic therapy ? 05/23/2023; EDGAR performed the day prior did not reveal any vegetation. 3. Suspected pneumonia - Suspected to be secondary to streptococcal pneumonia, Blood and sputum cultures sent. Patient placed on Rocephin and Zithromax and placed on oxygen titrated to keep Pulse Ox greater than 90 4.. Incidentally noted enlargement of pancreatic head and uncinate process ? Incidentally noted mass on chest CT on admit. MRCP 05/19 showed no definitive pancreatic mass, no biliary dilation or choledocholithiasis; however the exam was not tailored to evaluate the pancreas. Gastroenterology consulted. 5. Valvular heart disease ? History of mechanical aortic valve patient is on Coumadin, did continue with daily monitoring of INR ordered 6. Chronic A-fib ? Rate controlled and on systemic anticoagulation with Coumadin 7. Coronary artery disease With previous history of PCI patient is on guideline directed medical therapy 8. Hypertension - Blood pressure controlled, home medications continued with dose adjustment as needed 9. Dyslipidemia -Patient is on statin therapy, continued at home dose 10. Hypothyroidism - Patient is on levothyroxine home dose continued 11. GERD ? Patient is on PPI 12. Class I obesity with BMI of 33.1 ? Weight loss advised 13. Peripheral neuropathy ? Patient is on gabapentin 14. Chronic gout ? Patient is on allopurinol 15. BPH with lower urinary obstructive symptoms - Patient treated with tamsulosin as well as finasteride 16. DVT prophylaxis ? Patient is on Coumadin Time spent in the patient's overall evaluation,decision-making process, review of diagnostic data, adjustment of management, discussion with other providers, nursing nursing and ancillary staff involved in patient's care documentation, 35Minutes Medications at Discharge Home Medications warfarin 4 mg tablet (Jantoven) 4 mg PO SUTUWETHFRSA A.FIB 04/03/16 allopurinol 100 mg tablet 100 mg PO DAILYCM 04/04/16 atorvastatin 40 mg tablet 80 mg PO DAILY 04/04/16 ferrous sulfate 325 mg (65 mg iron) tablet 325 mg PO DAILY 04/04/16 isosorbide mononitrate 30 mg tablet,extended release 24 hr 30 mg PO DAILY 04/04/16 levothyroxine 25 mcg tablet 50 mcg PO DAILY 04/04/16 metoprolol tartrate 25 mg tablet 25 mg PO DAILY 04/04/16 pantoprazole 40 mg tablet,delayed release 40 mg PO BID 04/04/16 gabapentin 300 mg capsule 300 mg PO DAILY 01/10/20 tamsulosin 0.4 mg capsule 0.4 mg PO DAILY 07/09/22 aspirin 81 mg capsule 81 mg PO DAILY blood thinner 01/10/23 finasteride 5 mg tablet 5 mg PO DAILY 05/18/23 warfarin 2 mg tablet (Jantoven) 2 mg PO DAILY A.FIB 05/19/23 cefdinir 300 mg capsule 300 mg PO BID #10 caps 05/23/23 furosemide 40 mg tablet (Lasix) 40 mg PO DAILY #30 tabs 05/23/23 Hospital Course Summary of Care Provided Minutes Spent on Discharge: 35 Weight / BMI Weight Weight: 105.6 kg Body Mass Index (BMI) 33.4 ABG / Lab / Microbiology Data 05/23/23 07:10 05/23/23 07:10 Laboratory: Laboratory Results - last 24 hr 05/19/23 06:40: Diff Path Review Reviewed 05/22/23 19:40: Random Vancomycin 14.9 05/23/23 07:10: WBC 18.2 H, RBC 4.78, Hgb 13.2, Hct 41.1, MCV 86.0, MCH 27.6, MCHC 32.1, RDW Std Deviation 49.5 H, RDW Coeff of Clement 15.9 H, Plt Count 316, MPV9.9, Neut % (Auto) Not Reportable, Total Counted 100, Neutrophils % (Manual) 78 H, Lymphocytes % (Manual) 7 L, Monocytes % (Manual) 4, Eosinophils % (Manual) 4,Basophils % (Manual) 1, Myelocytes % 1 H, Promyelocytes % 2 H, Other Cells % 3, Diff Path Review May foll, Tear Drop Cells 1+, Ovalocytes 1+, PT 27.1 H, INR 2.5, Sodium 137, Potassium 4.4, Chloride 106, Carbon Dioxide 27.0, Anion Gap 4 L, BUN 14, Creatinine 0.82, Estim Creat Clear Calc 91.81, Est GFR (MDRD) Af Amer 117, Est GFR (MDRD) Non-Af 96, BUN/Creatinine Ratio 17.0, Glucose 99, Calcium 9.2, Phosphorus 3.6, Magnesium 2.5 Microbiology: Microbiology 05/21/23 13:45 Blood Culture (Wb) - Right Hand Blood Culture - Preliminary No growth in 48 hours. 05/21/23 13:35 Blood Culture (Wb) - Left Hand Blood Culture - Preliminary No growth in 48 hours. 05/21/23 20:10 Sputum, Expectorated/Coughed Gram Stain - Final 05/21/23 20:10 Sputum, Expectorated/Coughed Respiratory Culture - Preliminary Appears to be normal respiratory allie. Further studies to follow. 05/19/23 00:50 Blood Culture (Wb) - Anticubital Right Blood Culture - Preliminary No growth in 48 hours. 05/19/23 00:43 Blood Culture (Wb) - Anticubital Left Blood Culture - Preliminary No growth in 48 hours. 05/19/23 08:18 Urine, Clean Catch Streptococcus pneumoniae Antigen (M - Final 05/19/23 01:24 Mucosa - Nasopharyngeal Respiratory Panel (PCR) - Final 05/19/23 00:48 Urine, Random Legionella Antigen - Final 05/19/23 00:48 Urine, Random Streptococcus pneumoniae Antigen (M - Final 05/18/23 21:21 Mucosa - Nose SARS-CoV-2, Influenza & RSV (PCR) - Final Radiography Diagnostic Testing: Radiology Impression Transesophageal Echocardiogram 05/22/23 06:56 Interpretation Summary Normal LV size. Left ventricular systolic function is normal. The estimated ejection fraction is 60 %. The left atrium is mildly enlarged. No thrombus is detected in the left atrial appendage. Bileaflet mechanical aortic valve. Valve thickening noted but with no obvious vegetation. Ordering Physician: Moreno Bob Referring Physician: [facility] Performed By: Kandace Ayoub, DONALD, RVT Meaningful Use Info Meaningful Use Diagnoses (Choose all that apply): CHF CHF TRA/ARB ordered at discharge?: Yes Reason TRA/ARB not ordered?: Normal EF Documented LVEF (%): 60 Discharge Plan Admission Admit Date/Time: 05/19/23 00:14 Attending Provider: Desmond Castaneda Primary Care Provider: [facility] Consulting Providers: Desmond Owen; Constantino Albarado; Chester Montano; Jaya Patel Discharge Orders/Prescriptions Prescriptions: New cefdinir 300 mg capsule 300 mg PO BID Qty: 10 0RF furosemide [Lasix] 40 mg tablet 40 mg PO DAILY Qty: 30 0RF Continued warfarin [Jantoven] 4 MG tablet 4 mg PO SUTUWETHFRSA atorvastatin 40 MG tablet 80 mg PO DAILY isosorbide mononitrate 30 MG tablet 30 mg PO DAILY Patient Comments: Heart allopurinol 100 MG tablet 100 mg PO DAILYCM levothyroxine 25 MCG tablet 50 mcg PO DAILY pantoprazole 40 MG tablet 40 mg PO BID Patient Comments: stomach ferrous sulfate 325 MG tablet 325 mg PO DAILY metoprolol tartrate 25 MG tablet 25 mg PO DAILY gabapentin 300 MG capsule 300 mg PO DAILY tamsulosin 0.4 mg capsule 0.4 mg PO DAILY Patient Comments: Take 1 capsule by mouth once a day aspirin 81 mg capsule 81 mg PO DAILY finasteride 5 mg tablet 5 mg PO DAILY warfarin [Jantoven] 2 mg tablet 2 mg PO DAILY Patient Comments: AT BEDTIME ON MONDAYS ONLY Referrals / Follow Up: [facility] [Primary Care Provider] - Within 2 Weeks Disposition Disposition (needs filled in before D/C Order can be placed): Home, Self Care Charges/Coding Visit Charges Inpatient E&M: 16580 Disch Hosp >30min 05/23/23 1212 <Electronically signed by Desmond Castaneda MD> Cosigner Signature (if applicable): CC: Dr. Desmond Castaneda MD; [place] [facility]~ Signed [facility] Work Phone: 1(705) 200-867601-23-2024 Progress note Author Desmond Castaneda [facility] May 23, 2023 11:51am Note Date/Time May 23, 2023 7 :55am [facility] Medical Records Department [address] [place] [address] Progress Note - Hospitalist 05/23/23 0755 MR#: [id number] Acct: [id number] Name: JUAQUIN KHALIL Rep #:[id number] : 1945 77 From: Desmond Castaneda MD PCP: [facility] Status:ADM IN Location: [place] [address] Reason for Visit Reason for Visit: Diagnoses Elevated white blood cell count, unspecified (05/19/23) Other nonrheumatic aortic valve disorders (05/19/23) Heart failure, unspecified (05/19/23) Pneumonia, unspecified organism (05/19/23) Other specified diseases of pancreas (05/19/23) Hypoxemia (05/19/23) Subjective Subjective Patient seen clinical condition improving. Plan is for patient to be assessed for possible discharge home Objective Data Objective Data Vital Signs: Vital Signs Temp Pulse Resp BP Pulse Ox O2 Del Method O2 Flow Rate 97.7 F L 100 17 135/82 H 94 Room Air 2 05/23/23 07:45 05/23/23 07:45 05/23/23 07:45 05/23/23 07:45 05/23/23 07:45 05/23/23 07:45 05/20/23 08:30 Oxygen Flow Rate (L/min) 2 Oxygen Delivery Method Room Air Weight: 105.6 kg Body Mass Index (BMI) 33.4 Intake & Output: Intake and Output for Last 24 Hours 05/21/23 05/22/23 05/23/23 23:59 23:59 23:59 Intake Total 2984.75 / 2984.75 970 / 970 445 / 445 Output Total 2450 / 2900 2800 / 2800 150 / 150 Balance 534.75 / 84.75 -1830 / -1830 295 / 295 Lab / Micro Data 05/23/23 07:10 05/23/23 07:10 Labs: Laboratory Results - last 24 hr 05/19/23 06:40: Diff Path Review Reviewed 05/22/23 05:10: PT 25.2 H, INR 2.3 05/22/23 07:00: Vancomycin Trough 24.4 H 05/22/23 19:40: Random Vancomycin 14.9 05/23/23 07:10: WBC 18.2 H, RBC 4.78, Hgb 13.2, Hct 41.1, MCV 86.0, MCH 27.6, MCHC 32.1, RDW Std Deviation 49.5 H, RDW Coeff of Clement 15.9 H, Plt Count 316, MPV9.9, Neut % (Auto) Not Reportable, PT 27.1 H, INR 2.5, Sodium 137, Potassium 4.4, Chloride 106, Carbon Dioxide 27.0, Anion Gap 4 L, BUN 14, Creatinine 0.82, Estim Creat Clear Calc 91.81, Est GFR (MDRD) Af Amer 117, Est GFR (MDRD) Non-Af 96, BUN/Creatinine Ratio 17.0, Glucose 99, Calcium 9.2, Phosphorus 3.6, Magnesium 2.5 Micro: Microbiology 05/21/23 20:10 Sputum, Expectorated/Coughed Gram Stain - Final 05/19/23 00:50 Blood Culture (Wb) - Anticubital Right Blood Culture - Preliminary No growth in 48 hours. 05/19/23 00:43 Blood Culture (Wb) - Anticubital Left Blood Culture - Preliminary No growth in 48 hours. 05/19/23 08:18 Urine, Clean Catch Streptococcus pneumoniae Antigen (M - Final 05/19/23 01:24 Mucosa - Nasopharyngeal Respiratory Panel (PCR) - Final 05/19/23 00:48 Urine, Random Legionella Antigen - Final 05/19/23 00:48 Urine, Random Streptococcus pneumoniae Antigen (M - Final 05/18/23 21:21 Mucosa - Nose SARS-CoV-2, Influenza & RSV (PCR) - Final Radiography Diagnostic Testing: Radiology Impression Transesophageal Echocardiogram 05/22/23 06:56 Interpretation Summary Normal LV size. Left ventricular systolic function is normal. The estimated ejection fraction is 60 %. The left atrium is mildly enlarged. No thrombus is detected in the left atrial appendage. Bileaflet mechanical aortic valve. Valve thickening noted but with no obvious vegetation. Ordering Physician: Moreno Bob Referring Physician: [facility] Performed By: Kandace Ayoub, DONALD, RVT Physical Exam Narrative GENERAL: cooperative HEENT: Atraumatic; normocephalic EYES; Anicteric, Normal Conjunctiva NECK; supple, normal thyroid, RESPIRATORY: Diminished to auscultation CARDIOVASCULAR: irregular S1 S2, GI: soft, normoactive bowel sounds, : No Renal angle tenderness; EXTREMITIES: No edema, no clubbing, MUSCULOSKELETAL: no muscle wasting NEURO: Awake; no lateralizing signs. SKIN: No Rash PSYCH; Flat affect Assessment & Plan Assessment/Plan (1) CHF exacerbation: QUALIFIERS: Heart failure type: unspecified Qualified Code(s): I50.9 - Heart failure, unspecified (2) Mass of head of pancreas: (3) Aortic valve mass: (4) Leukocytosis: (5) Hypoxia: PLAN: Plan Patient is a 77-year-old male who presented to [facility] ED on 05/18/2023 with worsening cough and shortness of breath. 1. Acute on chronic congestive heart failure ? Patient presented with significant hypoxia CT demonstrated bilateral pleural effusion patient has been managed with diuretics. TTE obtained on 05/20/2023 demonstrated EF of 55 to 60% was also found to have a moderate size Hyperechogenic structure noted in mechanical aortic valve -? 05/23/2023; EDGAR performed the day prior did not reveal any vegetation. 2. A moderate size Hyperechogenic structure noted in mechanical aortic valve -Patient is scheduled to undergo EDGAR to add a renal rule out endocarditis patient remains on broad-spectrum antibiotic therapy ? 05/23/2023; EDGAR performed the day prior did not reveal any vegetation. 3. Suspected pneumonia - Suspected to be secondary to streptococcal pneumonia, Blood and sputum cultures sent. Patient placed on Rocephin and Zithromax and placed on oxygen titrated to keep Pulse Ox greater than 90 4.. Incidentally noted enlargement of pancreatic head and uncinate process ? Incidentally noted mass on chest CT on admit. MRCP 05/19 showed no definitive pancreatic mass, no biliary dilation or choledocholithiasis; however the exam was not tailored to evaluate the pancreas. Gastroenterology consulted. 5. Valvular heart disease ? History of mechanical aortic valve patient is on Coumadin, did continue with daily monitoring of INR ordered 6. Chronic A-fib ? Rate controlled and on systemic anticoagulation with Coumadin 7. Coronary artery disease With previous history of PCI patient is on guideline directed medical therapy 8. Hypertension - Blood pressure controlled, home medications continued with dose adjustment as needed 9. Dyslipidemia -Patient is on statin therapy, continued at home dose 10. Hypothyroidism - Patient is on levothyroxine home dose continued 11. GERD ? Patient is on PPI 12. Class I obesity with BMI of 33.1 ? Weight loss advised 13. Peripheral neuropathy ? Patient is on gabapentin 14. Chronic gout ? Patient is on allopurinol 15. BPH with lower urinary obstructive symptoms - Patient treated with tamsulosin as well as finasteride 16. DVT prophylaxis ? Patient is on Coumadin Time spent in the patient's overall evaluation,decision-making process, review of diagnostic data, adjustment of management, discussion with other providers, nursing nursing and ancillary staff involved in patient's care documentation, 35Minutes Charges/Coding Visit Charges Inpatient E&M: 18231 [facility] Hosp L2 05/23/23 1151 <Electronically signed by Desmond Castaneda MD> Cosigner Signature (if applicable): CC: ~ Signed [facility] Work Phone: 1(812) 551-800401-23-2024 [facility] Medical Records Department [address] [place] [address] Discharge Summary 05/23/23 1151 MR#: [id number] Acct: [id number] Name: JUAQUIN KHALIL Rep #: [id number] : 1945 77 From: Desmond Castaneda MD [place] [facility] Status:ADM [place] Location: [facility] [id number] Providers Date of Admission: 05/19/23 Date of Discharge: 05/23/23 Primary Care Physician: [place] [facility] Consultations 05/19/23 00:24 Consult: Gastroenterology Routine Consulting Provider: [facility] Reason for Consult: Pancreatic head mass on CT EMERGENT Consult: No Notified: Yes Date Notified: 05/19/23 Time Notified: 06:51 Method of Notification: Text 05/20/23 15:12 Consult: Cardiology Routine Consulting Provider: Chester Montano Reason for Consult: Mass on mechanical AV on TTE, EDGAR recommended EMERGENT Consult: No Notified: Yes Date Notified: 05/20/23 Time Notified: 15:41 Method of Notification: Text Reason For Visit: PNEUMONIA, AE CHF AND PANCREATIC HEAD MASS Diagnosis Discharge Diagnosis (1) CHF exacerbation: Status: Chronic Code(s): I50.9 - Heart failure, unspecified Qualifiers: Heart failure type: unspecified Qualified Code(s): I50.9 - Heart failure, unspecified (2) Mass of head of pancreas: Status: Acute Code(s): K86.89 - Other specified diseases of pancreas (3) Aortic valve mass: Status: Acute Code(s): I35.8 - Other nonrheumatic aortic valve disorders (4) Leukocytosis: Status: Acute Code(s): D72.829 - Elevated white blood cell count, unspecified (5) Hypoxia: Status: Acute Code(s): R09.02 - Hypoxemia Plan Patient is a 77-year-old male who presented to [facility] ED on 05/18/2023 with worsening cough and shortness of breath. 1. Acute on chronic congestive heart failure ??? Patient presented with significant hypoxia CT demonstrated bilateral pleural effusion patient has been managed with diuretics. TTE obtained on 05/20/2023 demonstrated EF of 55 to 60% was also found to have a moderate size Hyperechogenic structure noted in mechanical aortic valve -??? 05/23/2023; EDGAR performed the day prior did not reveal any vegetation. 2. A moderate size Hyperechogenic structure noted in mechanical aortic valve -Patient is scheduled to undergo EDGAR to add a renal rule out endocarditis patient remains on broad- spectrum antibiotic therapy ??? 05/23/2023; EDGAR performed the day prior did not reveal any vegetation. 3. Suspected pneumonia - Suspected to be secondary to streptococcal pneumonia, Blood and sputum cultures sent. Patient placed on Rocephin and Zithromax and placed on oxygen titrated to keep Pulse Ox greater than 90 4.. Incidentally noted enlargement of pancreatic head and uncinate process ??? Incidentally noted mass on chest CT on admit. MRCP 05/19 showed no definitive pancreatic mass, no biliary dilation or choledocholithiasis; however the exam was not tailored to evaluate the pancreas. Gastroenterology consulted. 5. Valvular heart disease ??? History of mechanical aortic valve patient is on Coumadin, did continue with daily monitoring of INR ordered 6. Chronic A-fib ??? Rate controlled and on systemic anticoagulation with Coumadin 7. Coronary artery disease With previous history of PCI patient is on guideline directed medical therapy 8. Hypertension - Blood pressure controlled, home medications continued with dose adjustment as needed 9. Dyslipidemia -Patient is on statin therapy, continued at home dose 10. Hypothyroidism - Patient is on levothyroxine home dose continued 11. GERD ??? Patient is on PPI 12. Class I obesity with BMI of 33.1 ??? Weight loss advised 13. Peripheral neuropathy ??? Patient is on gabapentin 14. Chronic gout ??? Patient is on allopurinol 15. BPH with lower urinary obstructive symptoms - Patient treated with tamsulosin as well as finasteride 16. DVT prophylaxis ??? Patient is on Coumadin Time spent in the patient's overall evaluation,decision-making process, review of diagnostic data, adjustment of management, discussion with other providers, nursing nursing and ancillary staff involved in patient's care documentation, 35 Minutes Medications at Discharge Home Medications warfarin 4 mg tablet (Jantoven) 4 mg PO SUTUWETHFRSA A.FIB 04/03/16 allopurinol 100 mg tablet 100 mg PO DAILYCM 04/04/16 atorvastatin 40 mg tablet 80 mg PO DAILY 04/04/16 ferrous sulfate 325 mg (65 mg iron) tablet 325 mg PO DAILY 04/04/16 isosorbide mononitrate 30 mg tablet,extended release 24 hr 30 mg PO DAILY 04/04/16 levothyroxine 25 mcg tablet 50 mcg PO DAILY 04/04/16 metoprolol tartrate 25 mg tablet 25 mg PO DAILY 04/04/16 pantoprazole 40 mg tablet,delayed release 40 mg PO BID 04/04/16 gabapentin 300 mg capsule 300 mg PO DAILY 01/10/20 tamsulosin 0.4 mg capsule 0.4 mg PO DAILY 07/09/22 aspiri (more content not included)...[facility]01-23-2024 Consult note Author Arian Kinney [facility] May 22, 2023 10:09pm Note Date/Time May 22, 2023 1 0:09pm [facility] Medical Records Department [address] [place] [address] Pharmacokinetic/Renal -Consult 05/22/232204 MR#: [id number] Acct: [id number] Name: JUAQUIN KHALIL Rep #:[id number] : 1945 77 From: Arian Kinney PCP: [facility] Status:ADM IN Location: [place] [address] Consult Antibiotic Management Pharmacy has been consulted to manage selected antibiotic: Vancomycin Type of Intervention Type of Consult: Follow-up Suspected Infection Suspected Infection: Pneumonia Labs Labs: Sodium 139 mmol/L (136-145) 05/22/23 05:10 Potassium 4.1 mmol/L (3.5-5.1) 05/22/23 05:10 Chloride 108 mmol/L (98-107) H 05/22/23 05:10 Carbon Dioxide 27.0 mmol/L (21.0-32.0) 05/22/23 05:10 Anion Gap 4 (5-15) L 05/22/23 05:10 BUN 13 mg/dL (7-18) 05/22/23 05:10 Creatinine 0.75 mg/dL (0.70-1.30) 05/22/23 05:10 Est GFR (MDRD) Af Amer 129 mL/min (>60) 05/22/23 05:10 Est GFR (MDRD) Non-Af 107 mL/min (>60) 05/22/23 05:10 BUN/Creatinine Ratio 17.3 RATIO (10-20) 05/22/23 05:10 Glucose 102 mg/dL (74-106) 05/22/23 05:10 Vancomycin Trough 24.4 ug/mL (5.0-15.0) H 05/22/23 07:00 Random Vancomycin 14.9 ug/mL (0.0-15.0) 05/22/23 19:40 Microbiology Microbiology: Microbiology 05/21/23 20:10 Sputum, Expectorated/Coughed Gram Stain - Final 05/19/23 00:50 Blood Culture (Wb) - Anticubital Right Blood Culture - Preliminary No growth in 48 hours. 05/19/23 00:43 Blood Culture (Wb) - Anticubital Left Blood Culture - Preliminary No growth in 48 hours. 05/19/23 08:18 Urine, Clean Catch Streptococcus pneumoniae Antigen (M - Final 05/19/23 01:24 Mucosa - Nasopharyngeal Respiratory Panel (PCR) - Final 05/19/23 00:48 Urine, Random Legionella Antigen - Final 05/19/23 00:48 Urine, Random Streptococcus pneumoniae Antigen (M - Final 05/18/23 21:21 Mucosa - Nose SARS-CoV-2, Influenza & RSV (PCR) - Final Dosing Weight Weight used for dosin.6 kg Estimated Creatinine Clearance Estimated Creatinine Clearance: 94 Goal Trough Goal Trough: 15-20 mcg/mL Pharmacy Plan for Drug Dosing Pharmacy Plan for Drug Dosing: Random vancomycin level was 14.9. This was taken 23.5hrs since the last dose given. Aminoglycoside dosing calculator estimates that re-starting at 1250mg q12h will give a trough level of 18.1. Will initiate this and draw a trough level prior to fourth dose of the new regimen. Pharmacy Service will continue to monitor and adjust dosing as required. Follow-Up Labs Follow-Up Labs: Trough: Vancomycin Date/Time Labs Ordered Labs to be done on [date and time ordered]: 05/24/23 @0930 05/22/231 <Electronically signed by Arian mills> Date _ Arian Owens Signature (if applicable): Date CC: ~ Signed [facility] Work Phone: 1(328) 990-516101-22-2024 Progress note Author Desmond Castaneda [facility] May 22, 2023 9:58am Note Date/Time May 22, 2023 9 :27am [facility] Medical Records Department [address] [place] [address] Progress Note - Hospitalist 05/22/23924 MR#: [id number] Acct: [id number] Name: JUAQUIN KHALIL Rep #:[id number] : 1945 77 From: Desmond Castaneda MD [place]CP: [facility] Status:ADM IN Location: [place] [address] Reason for Visit Reason for Visit: Diagnoses Elevated white blood cell count, unspecified (05/19/23) Other nonrheumatic aortic valve disorders (05/19/23) Heart failure, unspecified (05/19/23) Pneumonia, unspecified organism (05/19/23) Other specified diseases of pancreas (05/19/23) Hypoxemia (05/19/23) Subjective Subjective Patient is a 77-year-old male who presented to [facility] ED on 05/18/2023 with worsening cough and shortness of breath Objective Data Objective Data Vital Signs: Vital Signs Temp Pulse Resp BP Pulse Ox O2 Del Method O2 Flow Rate 97.5 F L 78 18 148/83 H 95 Room Air 2 05/22/23 07:45 05/22/23 08:47 05/22/23 07:45 05/22/23 07:45 05/22/23 08:22 05/22/23 08:22 05/20/23 08:30 Oxygen Flow Rate (L/min) 2 Oxygen Delivery Method Room Air Weight: 104.6 kg Body Mass Index (BMI) 33.0 Intake & Output: Intake and Output for Last 24 Hours 05/20/23 05/21/23 05/22/23 23:59 23:59 23:59 Intake Total 1840 / 2080 2984.75 / 2984.75 50 / 50 Output Total 1550 / 1950 2450 / 2900 800 / 800 Balance 290 / 130 534.75 / 84.75 -750 / -750 Lab / Micro Data 05/22/23 05:10 05/22/23 05:10 Labs: Laboratory Results - last 24 hr 05/21/23 13:35: ESR 14 05/22/23 05:10: WBC 15.3 H, RBC 4.47 L, Hgb 12.1 L, Hct 38.8 L, MCV 86.8, MCH 27.1, MCHC 31.2 L, RDW Std Deviation 51.7 H, RDW Coeff of Clement 16.2 H, Plt Count 258, MPV 9.9, Sodium 139, Potassium 4.1, Chloride 108 H, Carbon Dioxide 27.0, Anion Gap 4 L, BUN 13, Creatinine 0.75, Estim Creat Clear Calc 93.67, Est GFR (MDRD) Af Amer 129, Est GFR (MDRD) Non-Af 107, BUN/Creatinine Ratio 17.3, Glucose 102, Calcium 8.4 L 05/22/23 07:00: Vancomycin Trough 24.4 H Micro: Microbiology 05/19/23 00:50 Blood Culture (Wb) - Anticubital Right Blood Culture - Preliminary No growth in 48 hours. 05/19/23 00:43 Blood Culture (Wb) - Anticubital Left Blood Culture - Preliminary No growth in 48 hours. 05/19/23 08:18 Urine, Clean Catch Streptococcus pneumoniae Antigen (M - Final 05/19/23 01:24 Mucosa - Nasopharyngeal Respiratory Panel (PCR) - Final 05/19/23 00:48 Urine, Random Legionella Antigen - Final 05/19/23 00:48 Urine, Random Streptococcus pneumoniae Antigen (M - Final 05/18/23 21:21 Mucosa - Nose SARS-CoV-2, Influenza & RSV (PCR) - Final Physical Exam Narrative GENERAL: cooperative HEENT: Atraumatic; normocephalic EYES; Anicteric, Normal Conjunctiva NECK; supple, normal thyroid, RESPIRATORY: Diminished to auscultation CARDIOVASCULAR: irregular S1 S2, GI: soft, normoactive bowel sounds, : No Renal angle tenderness; EXTREMITIES: No edema, no clubbing, MUSCULOSKELETAL: no muscle wasting NEURO: Awake; no lateralizing signs. SKIN: No Rash PSYCH; Flat affect Assessment & Plan Assessment/Plan (1) CHF exacerbation: QUALIFIERS: Heart failure type: unspecified Qualified Code(s): I50.9 - Heart failure, unspecified (2) Mass of head of pancreas: (3) Aortic valve mass: (4) Leukocytosis: (5) Hypoxia: PLAN: Plan Patient is a 77-year-old male who presented to [facility] ED on 05/18/2023 with worsening cough and shortness of breath. 1. Acute on chronic congestive heart failure ? Patient presented with significant hypoxia CT demonstrated bilateral pleural effusion patient has been managed with diuretics. TTE obtained on 05/20/2023 demonstrated EF of 55 to 60% was also found to have a moderate size Hyperechogenic structure noted in mechanical aortic valve 2. A moderate size Hyperechogenic structure noted in mechanical aortic valve -Patient is scheduled to undergo EDGAR to add a renal rule out endocarditis patient remains on broad-spectrum antibiotic therapy 3. Suspected pneumonia - Suspected to be secondary to streptococcal pneumonia, Blood and sputum cultures sent. Patient placed on Rocephin and Zithromax and placed on oxygen titrated to keep Pulse Ox greater than 90 4.. Incidentally noted enlargement of pancreatic head and uncinate process ? Incidentally noted mass on chest CT on admit. MRCP 05/19 showed no definitive pancreatic mass, no biliary dilation or choledocholithiasis; however the exam was not tailored to evaluate the pancreas. Gastroenterology consulted. 5. Valvular heart disease ? History of mechanical aortic valve patient is on Coumadin, did continue with daily monitoring of INR ordered 6. Chronic A-fib ? Rate controlled and on systemic anticoagulation with Coumadin 7. Coronary artery disease With previous history of PCI patient is on guideline directed medical therapy 8. Hypertension - Blood pressure controlled, home medications continued with dose adjustment as needed 9. Dyslipidemia -Patient is on statin therapy, continued at home dose 10. Hypothyroidism - Patient is on levothyroxine home dose continued 11. GERD ? Patient is on PPI 12. Class I obesity with BMI of 33.1 ? Weight loss advised 13. Peripheral neuropathy ? Patient is on gabapentin 14. Chronic gout ? Patient is on allopurinol 15. BPH with lower urinary obstructive symptoms - Patient treated with tamsulosin as well as finasteride 16. DVT prophylaxis ? Patient is on Coumadin Time spent in the patient's overall evaluation,decision-making process, review of diagnostic data, adjustment of management, discussion with other providers, nursing nursing and ancillary staff involved in patient's care documentation, 50 Minutes Charges/Coding Visit Charges Inpatient E&M: 31755 [facility] Hosp 05/22/23 0958 <Electronically signed by Desmond Castaneda MD> Cosigner Signature (if applicable): CC: ~ Signed [facility] Work Phone: 1(284) 438-464501-21-2024 Consult note [facility] May 21, [facility] 1:37pm Note Date/Time May 21, 2023 1 :14pm [facility] Medical Records Department [address] [place] [address] Consultation - Cardiology 05/21/23 1304 MR#: [id number] Acct: [id number] Name: JUAQUIN KHALIL Rep #:[id number] : 1945 77 From: Chester Montano MD [place]CP[place] [facility] Status:ADM IN Location: [place] [address] Assessment & Plan Assessment/Plan (1) Hypoxia: (2) Leukocytosis: (3) CHF exacerbation: QUALIFIERS: Heart failure type: unspecified Qualified Code(s): I50.9 - Heart failure, unspecified (4) Pneumonia: QUALIFIERS: Pneumonia type: due to unspecified organism Laterality: bilateral Lung location: unspecified part of lung Qualified Code(s): J18.9 - Pneumonia, unspecified organism (5) Aortic valve mass: PLAN: Plan 77-year-old patient presented to the hospital through the ER with cough and shortness of breath Noted he had hypoxia Clinical diagnosis of pneumonia, responded to IV antibiotic Symptoms improving, no further symptoms of cough he does not have any active chest pain From cardiac standpoint patient has a heart failure preserved EF/HFpEF, mechanical aortic valve done at [facility], history of atrial fibrillation. The echocardiographic evaluation/TTE/ showed hyperechogenic mass noted in the aortic valve area could represent calcification. EF within normal and no significant valvular regurgitant However need to rule out vegetation based on history and current presentation with leukocytosis. Attempted prior EDGAR was not successful Cardiac care plan recommendation 77-year-old patient who presented with shortness of breath and hypoxia with a clinical diagnosis of pneumonia improving on the current treatment with IV antibiotic Patient has been on antibiotic with vancomycin and piperacillin. 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 There are no clinical signs of endocarditis and patient is responding to antibiotic treatment for the clinical diagnosis of pneumonia. Other cardiac problem include chronic A-fib with a history of mechanical aortic valve patient currently on Coumadin History of CAD with coronary artery stent hypertension hyperlipidemia and has been on statin aspirin nitrate and beta-yusra metoprolol. Cardiology team to continue monitoring and follow-up clinically. I requested 2 sets of blood cultures and sed rate. Will keep the patient n.p.o. for midnight for possible EDGAR in a.m. Explained the indication for a EDGAR to the patient as well as to the and family and nursing staff Will continue to monitor and follow-up clinically and he will be seen by the cardiac team. HPI Consult Data Date of Consult: 05/21/23 HPI Narrative Reason for Consultation: Patient with mechanical aortic valve/leukocytosis HPI Narrative: JUAQUIN KHALIL, is a 77 M who presents [facility] Medical History Back pain Cardiology follow-up encounter Excessive bleeding FH: bilateral hip replacements Former smoker Gastric reflux High cholesterol History of echocardiogram History of edema History of IBS History of pain when walking History of stress test Leg cramps Migraine headache Shortness of breath on exertion Sleep apnea Stroke/cerebrovascular accident Thyroid disease Wears hearing aid Home Medications warfarin 4 mg tablet (Jantoven) 4 mg PO HETAL Clark.FIB 04/03/16 [History Last Taken 01/08/23] allopurinol 100 mg tablet 100 mg PO DAILYCM 04/04/16 [History Last Taken 05/18/23] atorvastatin 40 mg tablet 80 mg PO DAILY 04/04/16 [History Last Taken 05/18/23] ferrous sulfate 325 mg (65 mg iron) tablet 325 mg PO DAILY 04/04/16 [History Last Taken 05/18/23] isosorbide mononitrate 30 mg tablet,extended release 24 hr 30 mg PO DAILY 04/04/16 [History Last Taken 05/18/23] levothyroxine 25 mcg tablet 50 mcg PO DAILY 04/04/16 [History Last Taken 05/18/23] metoprolol tartrate 25 mg tablet 25 mg PO DAILY 04/04/16 [History Last Taken 05/18/23] pantoprazole 40 mg tablet,delayed release 40 mg PO BID 04/04/16 [History Last Taken 05/18/23] gabapentin 300 mg capsule 300 mg PO DAILY 01/10/20 [History Last Taken 05/18/23] tamsulosin 0.4 mg capsule 0.4 mg PO DAILY 07/09/22 [History Last Taken 05/18/23] aspirin 81 mg capsule 81 mg PO DAILY blood thinner 01/10/23 [History Last Taken 05/18/23] finasteride 5 mg tablet 5 mg PO DAILY 05/18/23 [History Last Taken 05/18/23] warfarin 2 mg tablet (Jantoven) 2 mg PO DAILY A.FIB 05/19/23 [History Last Taken Unknown] Allergy/AdvReac Type Severity Reaction Status Date / Time hydrocodone bitartrate Allergy Other Verified 05/18/23 17:58 [From Vicodin] Surgical History History of cardiac catheterization History of coronary artery stent placement History of heart surgery History of open heart surgery Hx laparoscopic cholecystectomy Hx of aortic valve replacement Social History household members: spouse Smoking Status: Former smoker Physical Exam Cardio Cardio Narrative: Patient seen evaluated bedside and family at bedside at time of evaluation along with the nursing staff Patient sitting out in a chair comfortable does not have any symptoms symptoms of shortness of breath improved no chest pain electronic device monitor normal sinus Cardiac exam normal aortic valve prosthetic sounds Chest exam mildly diminished air entry. Risk Stratification Risk Stratification Applicable: No Objective Data Vital Signs: Vital Signs Temp Pulse Resp BP Pulse Ox O2 Del Method O2 Flow Rate 98 F 88 18 152/64 H 94 Room Air 2 05/21/23 10:30 05/21/23 11:17 05/21/23 10:30 05/21/23 11:17 05/21/23 10:30 05/21/23 10:30 05/20/23 08:30 Oxygen Flow Rate (L/min) 2 Oxygen Delivery Method Room Air Weight: 231 lb 14.821 oz Body Mass Index (BMI) 33.3 Intake & Output: Intake and Output for Last 24 Hours 05/19/23 05/20/23 05/21/23 23:59 23:59 23:59 Intake Total 967.5 / 1207.5 1840 / 2080 580 / 580 Output Total 3300 / 3700 1550 / 1950 800 / 800 Balance -2332.5 / -2492.5 290 / 130 -220 / -220 Lab / Micro Data 05/21/23 06:33 05/21/23 06:33 Labs: Laboratory Results - last 24 hr 05/21/23 06:33: WBC 15.8 H, RBC 4.24 L, Hgb 11.6 L, Hct 36.8 L, MCV 86.8, MCH 27.4, MCHC 31.5 L, RDW Std Deviation 51.5 H, RDW Coeff of Clement 16.2 H, Plt Count 241, MPV 10.3, Sodium 139, Potassium 4.1, Chloride 108 H, Carbon Dioxide 28.0, Anion Gap 3 L, BUN 13, Creatinine 0.73, Estim Creat Clear Calc 93.93, Est GFR (MDRD) Af Amer 134, Est GFR (MDRD) Non-Af 111, BUN/Creatinine Ratio 17.8, Glucose 105, Calcium 8.8 Micro: Microbiology 05/19/23 00:50 Blood Culture (Wb) - Anticubital Right Blood Culture - Preliminary No growth in 48 hours. 05/19/23 00:43 Blood Culture (Wb) - Anticubital Left Blood Culture - Preliminary No growth in 48 hours. Cardiology Labs/Tests 05/21/23 06:33: WBC 15.8 H, RBC 4.24 L, Hgb 11.6 L, Hct 36.8 L, MCV 86.8, MCH 27.4, MCHC 31.5 L, Plt Count 241, MPV 10.3, Sodium 139, Potassium 4.1, Chloride 108 H, Carbon Dioxide 28.0, Anion Gap 3 L, BUN 13, Creatinine 0.73, Est GFR (MDRD) Af Amer 134, Est GFR (MDRD) Non-Af 111, BUN/Creatinine Ratio 17.8, Glucose 105, Calcium 8.8 Rhythm: EKG: ECHO: Stress Test: Cardiac Cath: PCI: CT Surgery: Holter monitor: EPS: PPM: CXR: Chest CT Scan: 05/21/23 1337 <Electronically signed by Chester Montano MD> Cosigner Signature (if applicable): CC: Dr. Desmond Owen DO; Dr. Chester Montano MD; Dr. Constantino Albarado DO; [facility]~ Signed [facility] Work Phone: 1(527) 864-885801-21-2024 Progress [facility] May 21, 2023 12:17pm Note Date/Time May 21, 2023 1 2:17pm [facility] Medical Records Department [facility] [place] [address] Progress Note - Hospitalist 05/21/23 1214 MR#: [id number] Acct: [id number] Name: JUAQUIN KHALIL Rep #:[id number] : 1945 77 From: Jaya Isidoro eden DO PCP: [facility] Status:ADM IN Location: [place] [address] Reason for Visit Reason for Visit: Diagnoses Elevated white blood cell count, unspecified (05/19/23) Other nonrheumatic aortic valve disorders (05/19/23) Heart failure, unspecified (05/19/23) Pneumonia, unspecified organism (05/19/23) Other specified diseases of pancreas (05/19/23) Hypoxemia (05/19/23) Subjective Subjective Patient seen at bedside this morning. Sitting up comfortably in bed, conversingnormally, no acute distress. Patient denies any chest pain or shortness of breath overnight. Has continued to have good urine output, denies feeling volume overloaded at this time. Denies any fevers or chills. Denies any other pain or discomfort. No other acute concerns this morning. Objective Data Objective Data Vital Signs: Vital Signs Temp Pulse Resp BP Pulse Ox O2 Del Method O2 Flow Rate 98 F 88 18 152/64 H 94 Room Air 2 05/21/23 10:30 05/21/23 11:17 05/21/23 10:30 05/21/23 11:17 05/21/23 10:30 05/21/23 10:30 05/20/23 08:30 Oxygen Flow Rate (L/min) 2 Oxygen Delivery Method Room Air Weight: 105.2 kg Body Mass Index (BMI) 33.3 Intake & Output: Intake and Output for Last 24 Hours 05/19/23 05/20/23 05/21/23 23:59 23:59 23:59 Intake Total 967.5 / 1207.5 1840 / 2080 580 / 580 Output Total 3300 / 3700 1550 / 1950 800 / 800 Balance -2332.5 / -2492.5 290 / 130 -220 / -220 Lab / Micro Data 05/21/23 06:33 05/21/23 06:33 Labs: Laboratory Results - last 24 hr 01/21/24 06:33: WBC 15.8 H, RBC 4.24 L, Hgb 11.6 L, Hct 36.8 L, MCV 86.8, MCH 27.4, MCHC 31.5 L, RDW Std Deviation 51.5 H, RDW Coeff of Clement 16.2 H, Plt Count 241, MPV 10.3, Sodium 139, Potassium 4.1, Chloride 108 H, Carbon Dioxide 28.0, Anion Gap 3 L, BUN 13, Creatinine 0.73, Estim Creat Clear Calc 93.93, Est GFR (MDRD) Af Amer 134, Est GFR (MDRD) Non-Af 111, BUN/Creatinine Ratio 17.8, Glucose 105, Calcium 8.8 Micro: Microbiology 05/19/23 00:50 Blood Culture (Wb) - Anticubital Right Blood Culture - Preliminary No growth in 48 hours. 05/19/23 00:43 Blood Culture (Wb) - Anticubital Left Blood Culture - Preliminary No growth in 48 hours. 05/19/23 08:18 Urine, Clean Catch Streptococcus pneumoniae Antigen (M - Final 05/19/23 01:24 Mucosa - Nasopharyngeal Respiratory Panel (PCR) - Final 05/19/23 00:48 Urine, Random Legionella Antigen - Final 05/19/23 00:48 Urine, Random Streptococcus pneumoniae Antigen (M - Final 05/18/23 21:21 Mucosa - Nose SARS-CoV-2, Influenza & RSV (PCR) - Final Physical Exam Const alert, oriented x3 and no apparent distress Constitutional Narrative: Elderly male, obese, sitting up comfortably in bed, conversing normally, no acute distress. General Appearance: cooperative and comfortable HEENT normocephalic, head/scalp atraumatic, hearing grossly normal bilaterally, nasal mucous membranes and turbinates normal and moist oral mucous membranes Eyes PERRL, EOMs intact bilaterally and conjunctivae normal Neck full ROM, no lymphadenopathy and supple Lymph Lymphatic: no lymphadenopathy noted Chest inspection of chest normal Resp normal respiratory effort, normal air movement, no use of accessory muscles and clear to auscultation bilaterally Cardio regular rate, regular rhythm, no murmurs and peripheral pulses 2+ throughout GI normal to inspection, nondistended, normoactive bowel sounds, soft to palpation,non-tender and non-distended Back/Spine normal ROM Extremity normal to inspection, full ROM and no pedal edema Skin no rashes or lesions noted Neuro no focal motor deficits and no sensory deficits noted Speech: speech normal Psych mental status grossly normal Assessment & Plan Assessment/Plan (1) CHF exacerbation: QUALIFIERS: Heart failure type: unspecified Qualified Code(s): I50.9 - Heart failure, unspecified (2) Mass of head of pancreas: (3) Aortic valve mass: (4) Leukocytosis: (5) Hypoxia: PLAN: Plan Patient is a 77-year-old male who presented to [facility] ED on 05/18/2023 with worsening cough and shortness of breath. 1. HFpEF exacerbation with acute hypoxia, concern for mass on mechanical aorticvalve Presented with cough and worsening shortness of breath. CT chest on admit showed small bilateral pleural effusions with bibasilar atelectasis versus infiltrate. BNP 399. TTE 05/20 showed EF 55 to 60%, moderate-sized hyperechogenic structure noted on mechanical aortic valve. Blood cultures 05/19 negative to this point. Highest concern at this time is for endocarditis (possibly culture-negative endocarditis) causing aortic valve insufficiency and volume overload. ? Cardiology consulted. Transitioned to p.o. Lasix 40 mg daily on 05/21. Required up to 3 L nasal cannula on admit, now stable on room air at rest. Suspect patient will need EDGAR likely on Monday, will follow-up cardiology recommendations. Antibiotics as noted below. N.p.o. at midnight. 2. Leukocytosis, improving ? WBC count 19.8 on admit. Started on IV ceftriaxone and azithromycin for CAP coverage given chest imaging findings. Have lower concern for pneumonia at thistime, highest concern is for endocarditis as noted above. Broadened to vancomycin and Zosyn on 05/20. Trend CBC. 3. Incidentally noted enlargement of pancreatic head and uncinate process ? Incidentally noted mass on chest CT on admit. MRCP 05/19 showed no definitive pancreatic mass, no biliary dilation or choledocholithiasis; however the exam was not tailored to evaluate the pancreas. Gastroenterology consulted. Appreciate GI recs on need for possible further imaging to evaluate for a pancreatic mass. Chronic medical conditions: ? Chronic A-fib, history of mechanical aortic valve: Continue home Coumadin. ? History of CAD with stenting, hypertension, hyperlipidemia: Continue home aspirin, statin, nitrate, metoprolol. ? Hypothyroidism: Continue home Synthroid. ? GERD: Continue home PPI. ? Chronic neuropathy: Continue home gabapentin. ? BPH with obstructive symptoms: Continue home Flomax and finasteride. ? History of gout: Continue home allopurinol. DVT prophylaxis: Warfarin CODE STATUS: Full code, verified Expected disposition: Home, TBD Total clinical time spent by myself addressing the patient's medical issues, reviewing all the data, and collaborating with patient's care team: 35 minutes. Charges/Coding Visit Charges Inpatient E&M: 00867 Subs Hosp L2 05/21/23 1217 <Electronically signed by Jaya Patel DO> Cosigner Signature (if applicable): CC: ~ Signed [facility] Work Phone: 1(321) 103-487601-20-2024 Progress note [facility] May 20, 2023 3:22pm Note Date/Time May 20, 2023 2 :27pm [facility] Medical Records Department [address] [place] [address] Progress Note - Hospitalist 05/20/23 1405 MR#: [id number] Acct: [id number] Name: REMIJUAQUIN Katy Rep #:[id number] : 1945 77 From: Jaya eden DO [facility]CP: [facility] Status:ADM IN Location: [place] [address] Reason for Visit Reason for Visit: Diagnoses Heart failure, unspecified (05/19/23) Pneumonia, unspecified organism (05/19/23) Other specified diseases of pancreas (05/19/23) Subjective Subjective Patient seen at bedside this morning. Was having his echocardiogram done duringour interview. Patient was breathing well on room air. Has been having good urine output over the last day or so. States that shortness of breath with exertion has improved. Denies any cough or sputum production today. Denies anywheezing. No other acute pain or discomfort today. No other acute concerns. Objective Data Objective Data Vital Signs: Vital Signs Temp Pulse Resp BP Pulse Ox O2 Del Method O2 Flow Rate 98.1 F 70 18 118/78 94 Room Air 2 05/20/23 12:13 05/20/23 12:13 05/20/23 12:13 05/20/23 12:13 05/20/23 12:13 05/20/23 12:13 05/20/23 08:30 Oxygen Flow Rate (L/min) 2 Oxygen Delivery Method Room Air Weight: 105.5 kg Body Mass Index (BMI) 33.3 Intake & Output: Intake and Output for Last 24 Hours 05/18/23 05/19/23 05/20/23 23:59 23:59 23:59 Intake Total 967.5 / 1207.5 780 / 780 Output Total 3300 / 3700 1200 / 1200 Balance -2332.5 / -2492.5 -420 / -420 Lab / Micro Data 05/20/23 08:38 05/20/23 08:38 Labs: Laboratory Results - last 24 hr 05/18/23 20:37: Diff Path Review Reviewed 05/19/23 06:40: Absolute Neuts (auto) 17.6 H, Absolute Lymphs (auto) 1.60 05/19/23 13:20: MRSA (PCR) Negative 05/20/23 08:38: WBC 17.3 H, RBC 4.53 L, Hgb 12.6 L, Hct 39.9 L, MCV 88.1, MCH 27.8, MCHC 31.6 L, RDW Std Deviation 52.5 H, RDW Coeff of Clement 16.3 H, Plt Count 256, MPV 10.5, Sodium 137, Potassium 3.6, Chloride 104, Carbon Dioxide 30.0, Anion Gap 3 L, BUN 13, Creatinine 0.69 L, Estim Creat Clear Calc 94.06, Est GFR (MDRD) Af Amer 142, Est GFR (MDRD) Non-Af 118, BUN/Creatinine Ratio 18.8, Glucose 107 H, Calcium 8.9 Micro: Microbiology 05/19/23 08:18 Urine, Clean Catch Streptococcus pneumoniae Antigen (M - Final 05/19/23 01:24 Mucosa - Nasopharyngeal Respiratory Panel (PCR) - Final 05/19/23 00:48 Urine, Random Legionella Antigen - Final 05/19/23 00:48 Urine, Random Streptococcus pneumoniae Antigen (M - Final 05/18/23 21:21 Mucosa - Nose SARS-CoV-2, Influenza & RSV (PCR) - Final Radiography Diagnostic Testing: Radiology Impression Echocardiogram 05/20/23 05:55 Interpretation Summary The estimated ejection fraction is 55-60 %. Moerate size Hyperechogenic structure noted on Mechanical AV Recommendation: Consider EDGAR ,Evaluation Ordering Physician: Constantino Albarado Referring Physician: [facility] Performed By: Kandace Ayoub, DONALD, RVT Chest X-Ray 05/20/23 06:10 IMPRESSION: 1. Stable mild cardiomegaly. 2. No acute cardiopulmonary abnormality. Electronically Signed: Sushil Hancock MD at 7:06 EST , Physical Exam Const alert, oriented x3 and no apparent distress Constitutional Narrative: Elderly male, obese, sitting up comfortably in bed, conversing normally, no acute distress. General Appearance: cooperative and comfortable HEENT normocephalic, head/scalp atraumatic, hearing grossly normal bilaterally, nasal mucous membranes and turbinates normal and moist oral mucous membranes Eyes PERRL, EOMs intact bilaterally and conjunctivae normal Neck full ROM, no lymphadenopathy and supple Lymph Lymphatic: no lymphadenopathy noted Chest inspection of chest normal Resp normal respiratory effort, normal air movement, no use of accessory muscles and clear to auscultation bilaterally Cardio regular rate, regular rhythm, no murmurs and peripheral pulses 2+ throughout GI normal to inspection, nondistended, normoactive bowel sounds, soft to palpation,non-tender and non-distended Back/Spine normal ROM Extremity normal to inspection, full ROM and no pedal edema Skin no rashes or lesions noted Neuro no focal motor deficits and no sensory deficits noted Speech: speech normal Psych mental status grossly normal Assessment & Plan Assessment/Plan (1) CHF exacerbation: QUALIFIERS: Heart failure type: unspecified Qualified Code(s): I50.9 - Heart failure, unspecified (2) Mass of head of pancreas: (3) Aortic valve mass: (4) Leukocytosis: (5) Hypoxia: PLAN: Plan Patient is a 77-year-old male who presented to [facility] ED on 05/18/2023 with worsening cough and shortness of breath. 1. HFpEF exacerbation with acute hypoxia, concern for mass on mechanical aorticvalve Presented with cough and worsening shortness of breath. CT chest on admit showed small bilateral pleural effusions with bibasilar atelectasis versus infiltrate. BNP 399. TTE 05/20 showed EF 55 to 60%, moderate-sized hyperechogenic structure noted on mechanical aortic valve. Blood cultures 05/19 negative to this point. Highest concern at this time is for endocarditis (possibly culture-negative endocarditis) causing aortic valve insufficiency and volume overload. ? Cardiology consulted. Continue IV Lasix 40 mg daily for now. Required up to 3 L nasal cannula on admit, now stable on room air at rest. Suspect patient will need EDGAR likely on Monday, will follow-up cardiology recommendations. Antibiotics as noted below. 2. Leukocytosis, improving; concern for community-acquired pneumonia ? WBC count 19.8 on admit. Started on IV ceftriaxone and azithromycin for CAP coverage given chest imaging findings. Have lower concern for pneumonia at thistime, highest concern is for endocarditis as noted above. Broadened to vancomycin and Zosyn on 05/20. Trend CBC. 3. Incidentally noted enlargement of pancreatic head and uncinate process ? Incidentally noted mass on chest CT on admit. MRCP 05/19 showed no definitive pancreatic mass, no biliary dilation or choledocholithiasis; however the exam was not tailored to evaluate the pancreas. Gastroenterology consulted. Appreciate GI recs on need for possible further imaging to evaluate for a pancreatic mass. Chronic medical conditions: ? Chronic A-fib, history of mechanical aortic valve: Continue home Coumadin. ? History of CAD with stenting, hypertension, hyperlipidemia: Continue home aspirin, statin, nitrate, metoprolol. ? Hypothyroidism: Continue home Synthroid. ? GERD: Continue home PPI. ? Chronic neuropathy: Continue home gabapentin. ? BPH with obstructive symptoms: Continue home Flomax and finasteride. ? History of gout: Continue home allopurinol. DVT prophylaxis: Warfarin CODE STATUS: Full code, verified Expected disposition: Home, TBD Total clinical time spent by myself addressing the patient's medical issues, reviewing all the data, and collaborating with patient's care team: 35 minutes. Charges/Coding Visit Charges Inpatient E&M: 56506 Subs Hosp L2 05/20/23 1522 <Electronically signed by Jaya Patel DO> Cosigner Signature (if applicable): CC: ~ Signed [facility] Work Phone: 1(448) 308-934001-19-2024 Progress note Author Constantino Albarado [facility] May 19, 2023 8:37pm Note Date/Time May 19, 2023 8 :28pm [facility] Medical Records Department [address] [place] [address] Progress Note - Hospitalist 05/19/232021 MR#: [id number] Acct: [id number] Name: JUAQUIN KHALIL Rep #:[id number] : 1945 77 From: Constantino Albarado DO [facility]CP: [facility] Status:ADM IN Location: [place] [address] Reason for Visit Reason for Visit: Diagnoses Heart failure, unspecified (05/19/23) Pneumonia, unspecified organism (05/19/23) Other specified diseases of pancreas (05/19/23) Subjective Subjective Patient was seen and examined today, patient underwent an MRCP which showed no evidence of pancreatic cancer. Patient's family was in the room, I talked with him today during the time my visit. Patient is currently on 2 L of oxygen via nasal cannula Objective Data Objective Data Vital Signs: Vital Signs Temp Pulse Resp BP Pulse Ox O2 Del Method O2 Flow Rate 97.8 F 64 16 155/78 H 97 Nasal Cannula 2 05/19/23 18:00 05/19/23 18:00 05/19/23 18:00 05/19/23 18:00 05/19/23 18:00 05/19/23 18:00 05/19/23 18:00 Oxygen Flow Rate (L/min) 2 Oxygen Delivery Method Nasal Cannula Weight: 107.5 kg Body Mass Index (BMI) 34.0 Intake & Output: Intake and Output for Last 24 Hours 05/17/23 05/18/23 05/19/23 23:59 23:59 23:59 Intake Total 665 / 665 Output Total 3300 / 3300 Balance -2635 / -2635 Lab / Micro Data 05/19/23 06:40 05/19/23 06:40 Labs: Laboratory Results - last 24 hr 05/18/23 20:35: Urine Color Yellow, Urine Clarity Clear, Urine pH 7.0, Ur Specific [place] 1.005, Urine Protein Negative, Urine Glucose (UA) Normal, Urine Ketones Negative, Urine Occult Blood 10 H, Urine Nitrite Negative, Urine Bilirubin Negative, Urine Urobilinogen 4 H, Ur Leukocyte Esterase 25 H, Urine RBC 0 SEEN, Urine WBC 0-5 SEEN, Ur Squamous Epith Cells 0 SEEN, Urine Bacteria 0SEEN, Urine Mucus 0 SEEN 05/18/23 20:37: WBC 19.8 H, RBC 4.65, Hgb 12.9 L, Hct 41.0, MCV 88.2, MCH 27.7, MCHC 31.5 L, RDW Std Deviation 52.8 H, RDW Coeff of Clement 16.3 H, Plt Count 254, MPV 10.8, Neut % (Auto) Not Reportable, Absolute Neuts (auto) 15.6 H, Absolute Lymphs (auto) 0.99, Total Counted 100, Neutrophils % (Manual) 77 H, Band Neutrophils % 2, Lymphocytes % (Manual) 5 L, Monocytes % (Manual) 6, Metamyelocytes % 2 H, Myelocytes % 8 H, Diff Path Review Reviewed, Platelet Estimate ADEQUATE, RBC Morphology NORM C+C, Anisocytosis RARE, Macrocytosis RARE, Ovalocytes RARE, PT 27.7 H, INR 2.5, Sodium 138, Potassium 3.8, Chloride 105, Carbon Dioxide 28.0, Anion Gap 5, BUN 9, Creatinine 0.80, Est GFR (MDRD) AfAmer 121, Est GFR (MDRD) Non-Af 100, BUN/Creatinine Ratio 11.3, Glucose 112 H, Calcium 9.1, Total Bilirubin 1.20 H, Direct Bilirubin 0.42 H, AST 22, ALT 41, Alkaline Phosphatase 234 H, Troponin I High Sens 12, B- Natriuretic Peptide 399.2H, Total Protein 6.6, Albumin 3.4, Globulin 3.2, Lipase 30 05/19/23 06:40: WBC 22.6 H, RBC 4.54 L, Hgb 12.3 L, Hct 39.5 L, MCV 87.0, MCH 27.1, MCHC 31.1 L, RDW Std Deviation 52.6 H, RDW Coeff of Clement 16.3 H, Plt Count 257, MPV 10.5, Neut % (Auto) Not Reportable, Absolute Neuts (auto) 17.6 H, Absolute Lymphs (auto) 1.60, Total Counted 100, Neutrophils % (Manual) 78 H, Lymphocytes % (Manual) 7 L, Monocytes % (Manual) 11 H, Myelocytes % 2 H, Promyelocytes % 2 H, Diff Path Review August, RBC Morphology N CYTIC, PT 25.3 H, INR 2.3, Sodium 136, Potassium 3.8, Chloride 103, Carbon Dioxide 29.0, Anion Gap 4 L, BUN 8, Creatinine 0.74, Estim Creat Clear Calc 94.94, Est GFR (MDRD) AfAmer 131, Est GFR (MDRD) Non-Af 109, BUN/Creatinine Ratio 10.8, Glucose 117 H, Calcium 9.3, Phosphorus 3.2, Magnesium 2.1, Total Bilirubin 1.30 H, AST 15, ALT 36, Alkaline Phosphatase 220 H, B- Natriuretic Peptide 419.5 H, Total Protein 6.4, Albumin 3.2, Globulin 3.2, Albumin/Globulin Ratio 1.0, TSH 0.85 05/19/23 13:20: MRSA (PCR) Negative Micro: Microbiology 05/19/23 08:18 Urine, Clean Catch Streptococcus pneumoniae Antigen (M - Final 05/19/23 01:24 Mucosa - Nasopharyngeal Respiratory Panel (PCR) - Final 05/19/23 00:48 Urine, Random Legionella Antigen - Final 05/19/23 00:48 Urine, Random Streptococcus pneumoniae Antigen (M - Final 05/18/23 21:21 Mucosa - Nose SARS-CoV-2, Influenza & RSV (PCR) - Final Radiography Diagnostic Testing: Radiology Impression Chest X-Ray 05/18/23 21:20 IMPRESSION: ASHD. No acute cardiopulmonary pathology Electronically Signed: Diego Sanchez MD at 21:38 EST Reading Location ID and State: [facility] / [place] Tel , Service support , Chest CT 05/18/23 21:59 IMPRESSION: Small bilateral pleural effusions and bibasilar atelectasis or infiltrate. Incidental findings including apparent enlargement of the pancreatic head and uncinate process possibly due to chronic pancreatitis or neoplasm. Clinical correlation recommended as well as MRI/MRCP Small bilateral pleural effusions and bibasilar atelectasis or infiltrate. Electronically Signed: Diego Sanchez MD at 22:49 EST , MRCP 05/19/23 00:37 IMPRESSION: 1. No biliary dilation or choledocholithiasis. 2. No definite pancreatic mass is seen however, the exam was not tailored to evaluate the pancreas. Further evaluation with dedicated MRI of the pancreas or CT of the abdomen with contrast might be of value. Electronically Signed: Epifanio Wodo MD at 11:40 EST , Orbit X-Ray 05/19/23 09:20 IMPRESSION: No evidence of radiopaque foreign body. Electronically Signed: Epifanio Wood MD at 9:45 EST , Physical Exam Const alert, oriented x3, no apparent distress and healthy appearing General Appearance: cooperative, well kempt and well developed Orientation / Consciousness: awake, oriented to person, oriented to place and oriented to time HEENT normocephalic, head/scalp atraumatic and moist oral mucous membranes Eyes PERRL, EOMs intact bilaterally and conjunctivae normal Neck supple, no JVD, thyroid normal and no carotid bruits General: trachea midline Resp normal respiratory effort, no retractions, no use of accessory muscles and clearto auscultation bilaterally Auscultation: Negative for rales, rhonchi or wheezes Cardio regular rate, regular rhythm, S1 normal heart sound, S2 normal heart sound, no rub and no gallops Cardio Narrative: Patient has mechanical heart valve sound over the precordium GI normal to inspection, nondistended, normoactive bowel sounds, soft to palpation,non-tender and non-distended Extremity no clubbing, cyanosis or edema Skin no rashes or lesions noted General Skin Exam: no breakdown Neuro oriented x3, CN's II-XII intact bilaterally, moves all extremities, no focal motor deficits and no sensory deficits noted Sensorium / Orientation: awake and alert Speech: speech normal Psych affect normal Assessment & Plan Assessment/Plan (1) Pneumonia: QUALIFIERS: Pneumonia type: due to unspecified organism Laterality: bilateral Lung location: unspecified part of lung Qualified Code(s): J18.9 - Pneumonia, unspecified organism PLAN: Plan 1. Bibasilar pneumonia-patient's white blood cell count today was 22.6, CBC will be repeated tomorrow, continue present antibiotic coverage #2 acute congestive heart failure-patient will have an echocardiogram performed,he remains on IV Lasix at this time #3 mechanical heart valve (aortic)-patient remains on warfarin, INR will be monitored as needed #4 hyperlipidemia-patient is on atorvastatin #5 hypoxia secondary to #1 and #2-patient remains on 2 L of oxygen via nasal cannula, pulse ox will be monitored Total clinical time spent by myself addressing the patient's medical issues, reviewing all of his data, and collaborating with patient's care team: 35 minutes Charges/Coding Visit Charges Inpatient E&M: 54744 Subs Hosp L2 05/19/232036 <Electronically signed by Cnostantino Albarado DO> Cosigner Signature (if applicable): CC: ~ Signed [facility] Work Phone: 1(495) 138-725201-19-2024 History and physical note Author Desmond Coyle [facility] May 19, 2023 6:51am Note Date/Time May 18, 2023 1 1:26pm [facility] Medical Records Department [address] [place] [address] [place] [address] H&P Exam - Hospitalist 05/18/23 2325 MR#: [id number] Acct: [id number] Name: JUAQUIN KHALIL Rep #:[id number] : 1945 77 From: Desmond Roche DO [facility]CP: [facility] Status:ADM IN Location: [id number] HPI - General General Date of Admission: 05/19/23 Date of Service: 05/18/23 Chief Complaint: Cough and SOB. HPI Narrative JUAQUIN KHALIL, is a 77 M with a past medical history of essential hypertension, hyperlipidemia, hypothyroidism, obesity; with BMI of 36.4 this admission, JONNA, history of tobacco abuse, CAD; s/p stent, chronic atrial fibrillation + history of mechanical aortic valve; on Coumadin, history of CVA (2006), migraine headaches, chronic anemia, neuropathy, history of diverticulosis, IBS, hiatal hernia, BPH, GERD, gout and OA; s/p bilateral THR's plus chronic back pain who presents to [facility] ER complaining of cough and SOB. Mr. Khalil reports his symptoms began approximately two weeks prior to admission with increasing coughing and SOB. In the ER he was noted to be hypoxic when he got up to use the bathroom with patient admitting he has been sleeping in a recliner due to increased SOB when lying flat though he denies LE edema. He also denies associated fever, chills, nausea, vomiting, abdominal pain or chest pain. In the ER he was noted to have a CXR positive for bibasilar infiltrate consistent with suspected pneumonia and leukocytosis of 19.8 present on admission along with an elevated BNP of 399 pg/mL present on admission consistent with superimposed AE CHF with clinical evidence of acute hypoxic respiratory insufficiency complicated by an incidentally noted enlargement of the pancreatic head and uncinate process due to a suspected neoplasm with MRCP recommended and he was then admitted to the PCU for ongoing care for a stay thatis expected to be greater than 48 hours. [facility] Medical History Back pain Cardiology follow-up encounter Excessive bleeding FH: bilateral hip replacements Former smoker Gastric reflux High cholesterol History of echocardiogram History of edema History of IBS History of pain when walking History of stress test Leg cramps Migraine headache Shortness of breath on exertion Sleep apnea Stroke/cerebrovascular accident Thyroid disease Wears hearing aid Home Medications warfarin 4 mg tablet (Jantoven) 8 mg PO SUTUWETHFRSA 04/03/16 [History Last Taken 01/08/23] allopurinol 100 mg tablet 100 mg PO DAILYCM 04/04/16 [History Last Taken 05/18/23] atorvastatin 40 mg tablet 80 mg PO DAILY 04/04/16 [History Last Taken 05/18/23] ferrous sulfate 325 mg (65 mg iron) tablet 325 mg PO DAILY 04/04/16 [History Last Taken 05/18/23] isosorbide mononitrate 30 mg tablet,extended release 24 hr 30 mg PO DAILY 04/04/16 [History Last Taken 05/18/23] levothyroxine 25 mcg tablet 50 mcg PO DAILY 04/04/16 [History Last Taken 05/18/23] metoprolol tartrate 25 mg tablet 25 mg PO DAILY 04/04/16 [History Last Taken 05/18/23] pantoprazole 40 mg tablet,delayed release 40 mg PO BID 04/04/16 [History Last Taken 05/18/23] gabapentin 300 mg capsule 300 mg PO DAILY 01/10/20 [History Last Taken 05/18/23] tamsulosin 0.4 mg capsule 0.4 mg PO DAILY 07/09/22 [History Last Taken 05/18/23] warfarin 4 mg tablet 2 mg PO BID 07/09/22 [History Last Taken 01/08/23] aspirin 81 mg capsule 81 mg PO DAILY blood thinner 01/10/23 [History Last Taken 05/18/23] finasteride 5 mg tablet 5 mg PO DAILY 05/18/23 [History Last Taken 05/18/23] Allergy/AdvReac Type Severity Reaction Status Date / Time hydrocodone bitartrate Allergy Other Verified 05/18/23 17:58 [From Vicodin] Surgical History History of cardiac catheterization History of coronary artery stent placement History of heart surgery History of open heart surgery Hx laparoscopic cholecystectomy Hx of aortic valve replacement Social History household members: spouse Smoking Status: Former smoker ROS ROS Narrative Review of systems: General: Patient denies fevers or chills. HENT: Denies headache, denies stuffy nose, denies sore throat EYES: Denies changes in vision Resp: Patient admits to shortness of breath that is made worse by lying flat. Cardiac: Positive orthopnea with patient sleeping in recliner. GI: Denies abdominal pain, denies changes in bowel, denies nausea or vomiting : Denies changes in urination Extremity: Denies swelling Musculoskeletal: Feels somewhat generally weak and unwell Neuro: Denies any numbness/tingling Heme: Denies any bleeding or bruising Skin: Patient admits to abrasion to right ear. Psychiatric: No complaints voiced related to uncontrolled depression or anxiety. Endocrine: No polyuria, polydipsia or polyphagia. The rest of the 14 point ROS was negative except for positives in HPI. Vital Signs Vital Signs Vital Signs: 05/18/23 17:55 05/18/23 20:29 05/18/23 20:35 Temperature 97.6 F L 97.9 F Temperature Source Temporal Oral Pulse Rate 74 86 Respiratory Rate 18 16 Blood Pressure 183/69 H 180/81 H Blood Pressure Mean 107 114 Pulse Ox 93 87 93 Oxygen Delivery Method Room Air Room Air Nasal Cannula Oxygen Flow Rate (L/min) 2 05/18/23 21:18 05/18/23 21:54 Temperature 97.3 F L Temperature Source Temporal Pulse Rate 71 Respiratory Rate 18 Blood Pressure 169/98 H Blood Pressure Mean 121 Pulse Ox 93 93 Oxygen Delivery Method Nasal Cannula Nasal Cannula Oxygen Flow Rate (L/min) 2 3 Physical Exam Const alert, oriented x3 and no apparent distress Constitutional Narrative: Obese and chronically ill-appearing. General Appearance: cooperative HEENT normocephalic, head/scalp atraumatic, hearing grossly normal bilaterally and moist oral mucous membranes HEENT Narrative: Patient did have a small amount of dried blood coming from his EAC and down the pinna of his left ear. Eyes PERRL and EOMs intact bilaterally Neck no lymphadenopathy and supple Resp Resp Narrative: Diminished breath sounds throughout with bibasilar rales. Auscultation: rales Cardio regular rate and regular rhythm GI normal to inspection, nondistended, normoactive bowel sounds, soft to palpation,non-tender and non-distended GI Narrative: Obese. Extremity normal to inspection and full ROM Neuro oriented x3, CN's II-XII intact bilaterally, moves all extremities and no focal motor deficits Sensorium / Orientation: awake, alert, oriented to person, oriented to place andoriented to time Speech: speech normal Motor Exam: strength 5/5 throughout Psych affect normal Results Medical Records Data Attestation: I reviewed the patient's medical records Lab / Micro Data Attestation: I reviewed the patient's lab results. 05/18/23 20:37 05/18/23 20:37 Labs: Laboratory Results - last 24 hr 05/18/23 20:35: Urine Color Yellow, Urine Clarity Clear, Urine pH 7.0, Ur Specific [place] 1.005, Urine Protein Negative, Urine Glucose (UA) Normal, UrineKetones Negative, Urine Occult Blood 10 H, Urine Nitrite Negative, Urine Bilirubin Negative, Urine Urobilinogen 4 H, Ur Leukocyte Esterase 25 H, Urine RBC 0 SEEN, Urine WBC 0-5 SEEN, Ur Squamous Epith Cells 0 SEEN, Urine Bacteria 0SEEN, Urine Mucus 0 SEEN 05/18/23 20:37: WBC 19.8 H, RBC 4.65, Hgb 12.9 L, Hct 41.0, MCV 88.2, MCH 27.7, MCHC 31.5 L, RDW Std Deviation 52.8 H, RDW Coeff of Clement 16.3 H, Plt Count 254, MPV 10.8, Neut % (Auto) Not Reportable, Absolute Neuts (auto) 15.6 H, Absolute Lymphs (auto) 0.99, Total Counted 100, Neutrophils % (Manual) 77 H, Band Neutrophils % 2, Lymphocytes % (Manual) 5 L, Monocytes % (Manual) 6, Metamyelocytes % 2 H, Myelocytes % 8 H, Diff Path Review August, Platelet Estimate ADEQUATE, RBC Morphology NORM C+C, Anisocytosis RARE, Macrocytosis RARE, Ovalocytes RARE, PT 27.7 H, INR 2.5, Sodium 138, Potassium 3.8, Chloride 105, Carbon Dioxide 28.0, Anion Gap 5, BUN 9, Creatinine 0.80, Est GFR (MDRD) AfAmer 121, Est GFR (MDRD) Non-Af 100, BUN/Creatinine Ratio 11.3, Glucose 112 H, Calcium 9.1, Total Bilirubin 1.20 H, Direct Bilirubin 0.42 H, AST 22, ALT 41, Alkaline Phosphatase 234 H, Troponin I High Sens 12, B- Natriuretic Peptide 399.2H, Total Protein 6.6, Albumin 3.4, Globulin 3.2, Lipase 30 Micro: Microbiology 05/18/23 21:21 Mucosa - Nose SARS-CoV-2, Influenza & RSV (PCR) - Final Imagaing Radiology Impression Chest X-Ray 05/18/23 21:20 IMPRESSION: ASHD. No acute cardiopulmonary pathology Electronically Signed: Diego Sanchez MD at 21:38 EST , Chest CT 05/18/23 21:59 IMPRESSION: Small bilateral pleural effusions and bibasilar atelectasis or infiltrate. Incidental findings including apparent enlargement of the pancreatic head and uncinate process possibly due to chronic pancreatitis or neoplasm. Clinical correlation recommended as well as MRI/MRCP Small bilateral pleural effusions and bibasilar atelectasis or infiltrate. Electronically Signed: Diego Sanchez MD at 22:49 EST , Assessment & Plan Assessment/Plan (1) Pneumonia: QUALIFIERS: Pneumonia type: due to unspecified organism Laterality: bilateral Lung location: unspecified part of lung Qualified Code(s): J18.9 - Pneumonia, unspecified organism (2) CHF exacerbation: QUALIFIERS: Heart failure type: unspecified Qualified Code(s): I50.9 - Heart failure, unspecified (3) Mass of head of pancreas: PLAN: Plan 1. Bibasilar Pneumonia with Leukocytosis of 19.8 present on admission - Admit to PCU. Continue broad-spectrum antibiotics and await culture & sensitivity data. Give Tylenol prn pain or fever. 2. AE CHF evidenced by elevated BNP of 399 pg/mL present on admission with orthopnea and uncontrolled hypertension present on admission complicating #1 - Give IV Lasix with supplemental KCl and magnesium. Fluid restrict to 1.5L daily. Check echocardiogram to evaluate LVEF. 3. Acute hypoxic respiratory insufficiency arising from #1 & #2 - Wean supplemental oxygen as tolerated. 4. Incidentally noted enlargement of the pancreatic head and uncinate process due to a suspected neoplasm with MRCP recommended - MRCP ordered for the AM. Check CA 19-9 level. Finally, we will consult Dr. Andres of the gastroenterology service to see this patient on-rounds in the AM for further recommendations with help appreciated in advance. 5. Chronic atrial fibrillation + history of mechanical aortic valve; on Coumadin with INR of 2.5 present on admission - Continue Coumadin as previous and check daily PT/INR. 6. CAD; s/p stent - Noted. Continue BASA and statin as previous. 7. Essential hypertension - Resume home medications plus give prn IV Hydralazine for systolic blood pressure > 160 mm Hg. 8. Hyperlipidemia - Continue statin and check lipid profile. 9. Hypothyroidism - Resume Synthroid and check TSH. 10. Obesity; with BMI of 36.4 this admission plus JONNA - Weight loss will be recommended. 11. History of tobacco abuse - Noted. 12. History of CVA (2006) - Stable. 13. Migraine headaches - Stable with no complaints of headache at this time. 14. Chronic anemia - Noted. Hemoglobin normal at 12.9 present on admission. 15. Neuropathy - Continue Gabapentin as previous. 16. History of diverticulosis - Noted. 17. IBS - Stable. 18. GERD; with Hiatal hernia - Continue PPI. 19. BPH - Resume Tamsulosin and Finasteride. 20. Gout - Stable with no evidence of acute flare. 21. OA; s/p bilateral THR's plus chronic back pain - Give Tylenol prn. 22. DVT prophylaxis - Patient is already on Coumadin for #5 which will be continued. Check daily PT/INR. Total time: Approximately 55 minutes. Charges/Coding Visit Charges Inpatient E&M: 27473 Init Hosp L2 05/19/23 0651 <Electronically signed by Desmond Owen DO> Cosigner Signature (if applicable): CC: Dr. Desmond Owen DO; [place] [facility]~ Signed [facility] Work Phone: 1(809) 608-984901-19-2024 Discharge summary Author Leighton Drake [facility] May 18, 2023 11:38pm Note Date/Time May 18, 2023 9 :21pm [facility] Medical Records Department [address] [place] [id number] Emergency Department Summary 05/18/23 MR#: [id number] Acct: [id number] Name: REMIJUAQUIN THAO Katy Rep #:[id number] : 1945 77 From: Leighton Drake DO PCP: [facility] Status:REG ER Location: ED HPI History of Present Illness Chief Complaint: Ear Problem Narrative Narrative: 77-year-old male initially came in to be evaluated for bleeding from the right ear. He had some dried blood there now. Not sure what happened and he may havescratched it. Bleeding is well-controlled. It was noticed when he got up to goto the bathroom that is hypoxic. He states that over the last couple of weeks he had some coughing and shortness of breath. No fevers or chills. No body aches. Patient states that initially he does not have any trouble sleeping but his noted that he is been sleeping in his lazy boy. He denies lower extremity edema. Patient is on Coumadin for history of heart valve replacement. [facility] Medical History Back pain Cardiology follow-up encounter Excessive bleeding FH: bilateral hip replacements Former smoker Gastric reflux High cholesterol History of echocardiogram History of edema History of IBS History of pain when walking History of stress test Leg cramps Migraine headache Shortness of breath on exertion Sleep apnea Stroke/cerebrovascular accident Thyroid disease Wears hearing aid Home Medications warfarin 4 mg tablet (Jantoven) 8 mg PO SUTUWETHFRSA 04/03/16 [History Last Taken 01/08/23] allopurinol 100 mg tablet 100 mg PO DAILYCM 04/04/16 [History Last Taken 05/18/23] atorvastatin 40 mg tablet 80 mg PO DAILY 04/04/16 [History Last Taken 05/18/23] ferrous sulfate 325 mg (65 mg iron) tablet 325 mg PO DAILY 04/04/16 [History Last Taken 05/18/23] isosorbide mononitrate 30 mg tablet,extended release 24 hr 30 mg PO DAILY 04/04/16 [History Last Taken 05/18/23] levothyroxine 25 mcg tablet 50 mcg PO DAILY 04/04/16 [History Last Taken 05/18/23] metoprolol tartrate 25 mg tablet 25 mg PO DAILY 04/04/16 [History Last Taken 05/18/23] pantoprazole 40 mg tablet,delayed release 40 mg PO BID 04/04/16 [History Last Taken 05/18/23] gabapentin 300 mg capsule 300 mg PO DAILY 01/10/20 [History Last Taken 05/18/23] tamsulosin 0.4 mg capsule 0.4 mg PO DAILY 07/09/22 [History Last Taken 05/18/23] warfarin 4 mg tablet 2 mg PO BID 07/09/22 [History Last Taken 01/08/23] aspirin 81 mg capsule 81 mg PO DAILY blood thinner 01/10/23 [History Last Taken 05/18/23] finasteride 5 mg tablet 5 mg PO DAILY 05/18/23 [History Last Taken 05/18/23] Allergy/AdvReac Type Severity Reaction Status Date / Time hydrocodone bitartrate Allergy Other Verified 05/18/23 17:58 [From Vicodin] Surgical History History of cardiac catheterization History of coronary artery stent placement History of heart surgery History of open heart surgery Hx laparoscopic cholecystectomy Hx of aortic valve replacement Social History (Updated 05/18/23 @ 21:50 by Lauren Felipe) household members: spouse Smoking Status: Former smoker ROS ROS ED Constitutional Constitutional ED: Denies chills, fever(s) or sweats Eyes Eyes: Denies blurry vision or change in vision ENT ENT ED: Denies ear pain or sore throat Cardiovascular Cardiovascular: Reports orthopnea; Denies chest pain, palpitations or racing heartbeat Respiratory/Chest Respiratory/Chest: Reports cough, dyspnea, dyspnea on exertion and orthopnea; Denies sputum Gastrointestinal Gastrointestinal: Denies abdominal pain, constipation, diarrhea, nausea or vomiting Genitourinary Genitourinary ED: Denies dysuria, hematuria or urinary frequency Musculoskeletal Musculoskeletal: Denies arthralgias, myalgias or neck pain Integumentary Reports other Details: Abrasion to left ear ; Denies abscess, Abrasions or rash Neurologic Neurologic: Denies headache(s), paresthesias or weakness Psychiatric Psychiatric: Denies anxiety, depression, suicidal ideation or suicidal thoughts Endocrine Endocrinology: Denies polydipsia or polyuria EXAM Physical Exam Const Vital Signs: 05/18/23 17:55 05/18/23 20:29 05/18/23 20:35 Temperature 97.6 F L 97.9 F Temperature Source Temporal Oral Pulse Rate 74 86 Respiratory Rate 18 16 Blood Pressure 183/69 H 180/81 H Blood Pressure Mean 107 114 Pulse Ox 93 87 93 Oxygen Delivery Method Room Air Room Air Nasal Cannula Oxygen Flow Rate (L/min) 2 05/18/23 21:18 05/18/23 21:54 05/18/23 23:27 Temperature 97.3 F L Temperature Source Temporal Pulse Rate 71 75 Respiratory Rate 18 18 Blood Pressure 169/98 H 172/81 H Blood Pressure Mean 121 111 Pulse Ox 93 93 93 Oxygen Delivery Method Nasal Cannula Nasal Cannula Oxygen Flow Rate (L/min) 2 3 Positive well nourished General Appearance ED: NAD; Negative for pallor HEENT Reports moist mucous membranes Eyes PERRL and EOMs intact bilaterally General Eye ED: Yes pale conjunctiva Chest Wall inspection of chest normal Resp normal respiratory effort Auscultation: rales bilateral base Cardio regular rate and regular rhythm Back/Spine no CVA tenderness Extremity General Extremety ED: Yes edema General Extremity: edema Neuro oriented x3 and CN's II-XII intact bilaterally Sensorium / Orientation: alert Motor Exam: strength 5/5 throughout Psych mental status grossly normal Skin no rashes or lesions noted and no wounds General Skin Exam: Negative for jaundice or pallor MDM MDM MDM Narrative Medical decision making narrative: Patient initially presenting for abrasion to the left ear which is not bleeding. This is just inside the ear canal and is stable. Patient reportedly hypoxic into the 80s on ambulation to the bathroom. He reports he has been having a cough and shortness of breath as well as orthopnea. No fevers at home. Differential includes ACS, CHF, pneumonia, dehydration, anemia, electrolyte normalities, COVID, influenza, RSV. CBC will be obtained to assess white blood cell count, hemoglobin, platelets. BMP to assess renal function, electrolytes, glucose. High-sensitivity troponin and EKG to assess for ischemia. Chest x-rayto rule out pneumonia or CHF. BNP will be obtained to assess for CHF. Patient on Coumadin so I have low suspicion for PE. Will check an INR to make sure he is therapeutic. CBC shows leukocytosis of 19.8. Hemoglobin 12.9. Platelets 254. INR therapeutic at 2.5. Due to leukocytosis I did obtain a urinalysis which is negative. Chest x-ray my interpretation shows no acute process. The radiologist interprets this and agrees. BNP is elevated at 399.2. Given the patient's negative chest x-ray and workup with a 19,000 white count with hypoxiaI obtained a CT of the chest. This shows small bilateral pleural effusions versus infiltrates/atelectasis. This also shows concern for pancreatic mass. LFTs and lipase are unremarkable. Given the patient has a 19.8 white count I will cover him with antibiotics. Patient given Rocephin azithromycin. Discussed with hospitalist for admission as he is hypoxic. He requested I give a dose of Lasix as well. This was provided. Patient admitted in stable condition. Impression: 1. Pneumonia 2. CHF 3. Hypoxia 4. Pancreatic mass Lab Data Attestation: I reviewed the patient's lab results. Labs: Laboratory Results - last 24 hr 05/18/23 05/18/23 20:35 20:37 WBC 19.8 H RBC 4.65 Hgb 12.9 L Hct 41.0 MCV 88.2 MCH 27.7 MCHC 31.5 L RDW Std Deviation 52.8 H RDW Coeff of Clement 16.3 H Plt Count 254 MPV 10.8 Neut % (Auto) Not Reportable Absolute Neuts (auto) 15.6 H Absolute Lymphs (auto) 0.99 Total Counted 100 Neutrophils % (Manual) 77 H Band Neutrophils % 2 Lymphocytes % (Manual) 5 L Monocytes % (Manual) 6 Metamyelocytes % 2 H Myelocytes % 8 H Diff Path Review May foll Platelet Estimate ADEQUATE RBC Morphology NORM C+C Anisocytosis RARE Macrocytosis RARE Ovalocytes RARE PT 27.7 H INR 2.5 Sodium 138 Potassium 3.8 Chloride 105 Carbon Dioxide 28.0 Anion Gap 5 BUN 9 Creatinine 0.80 Est GFR (MDRD) Af Amer 121 Est GFR (MDRD) Non-Af 100 BUN/Creatinine Ratio 11.3 Glucose 112 H Calcium 9.1 Total Bilirubin 1.20 H Direct Bilirubin 0.42 H AST 22 ALT 41 Alkaline Phosphatase 234 H Troponin I High Sens 12 B-Natriuretic Peptide 399.2 H Total Protein 6.6 Albumin 3.4 Globulin 3.2 Lipase 30 Urine Color Yellow Urine Clarity Clear Urine pH 7.0 Ur Specific [place] 1.005 Urine Protein Negative Urine Glucose (UA) Normal Urine Ketones Negative Urine Occult Blood 10 H Urine Nitrite Negative Urine Bilirubin Negative Urine Urobilinogen 4 H Ur Leukocyte Esterase 25 H Urine RBC 0 SEEN Urine WBC 0-5 SEEN Ur Squamous Epith Cells 0 SEEN Urine Bacteria 0 SEEN Urine Mucus 0 SEEN Radiography Diagnostic Testing: Clinical Impression(s) from Imaging Studies Chest X-Ray 05/18/23 21:20 IMPRESSION: ASHD. No acute cardiopulmonary pathology Electronically Signed: Diego Sanchez MD at 21:38 EST , Chest CT 05/18/23 21:59 IMPRESSION: Small bilateral pleural effusions and bibasilar atelectasis or infiltrate. Incidental findings including apparent enlargement of the pancreatic head and uncinate process possibly due to chronic pancreatitis or neoplasm. Clinical correlation recommended as well as MRI/MRCP Small bilateral pleural effusions and bibasilar atelectasis or infiltrate. Electronically Signed: Diego Sanchez MD at 22:49 EST Reading Location ID and State: [facility] / [place] Tel , Service support , Discharge Plan Triage Chief Complaint: Ear Problem ED Provider: Leighton Drake Dx/Rx/DC Orders Prescriptions: No Action warfarin [Jantoven] 4 MG tablet 8 mg PO SUTUWETHFRSA atorvastatin 40 MG tablet 80 mg PO DAILY isosorbide mononitrate 30 MG tablet 30 mg PO DAILY Patient Comments: Heart allopurinol 100 MG tablet 100 mg PO DAILYCM levothyroxine 25 MCG tablet 50 mcg PO DAILY pantoprazole 40 MG tablet 40 mg PO BID Patient Comments: stomach ferrous sulfate 325 MG tablet 325 mg PO DAILY metoprolol tartrate 25 MG tablet 25 mg PO DAILY gabapentin 300 MG capsule 300 mg PO DAILY warfarin 4 mg Tablet 2 mg PO BID Patient Comments: On he only takes a total of 2 mg for the whole day. tamsulosin 0.4 mg capsule 0.4 mg PO DAILY Patient Comments: Take 1 capsule by mouth once a day aspirin 81 mg capsule 81 mg PO DAILY finasteride 5 mg tablet 5 mg PO DAILY Primary Care Provider: [facility] Ref[place] [facility] [Primary Care Provider] - Capacity Legal Replenishment Specialist Reflex Medical hold order details:: IF a medical hold is selected below, a suggested order for a MEDICAL HOLD will reflex upon signing the document. Next of kin: [place] law dictates a PRIORITY LIST for identifying legal decision-maker/legal next of kin in the following order (LNOK): 1st: The patient?s legal guardian, if any 2nd: The patient's spouse (if status is questionable, consult Risk Management) 3rd: The patient?s adult child(adelfo) (majority, if multiple children) 4th: The patient?s parents 5th: The patient?s adult siblings (majority, if multiple children siblings) What to do if you have Problems For any increased pain, shortness of breath, bleeding, nausea or vomiting, chestpain, or any unexpected problems, contact your Primary Care Provider. Call [facility] ([phone]) or report to the closest Emergency Room. Call 911 if necessary. 05/18/23 3113 <Electronically signed by Leighton Drake DO> Cosigner Signature (if applicable): CC: [facility] ~ Signed [facility] Work Phone: 1(893) 372-343909-15-2023 Procedure [facility] 01-13-2023 Procedure [facility]12-24-2021 Hospital Discharge instructions Patient Education 04/22/2021 23:15:28 LACERATION, All [...] hours, but do not soak the area inwater (no swimming) until the stitches or renae [...] renae have been removed. Talk with your doctorbefore applying any antibiotic ointment to the wound. Mouth wounds Eat soft foods to reduce pain. If the cut is inside of your mouth, clean by rinsing after each mealand at bedtime with a mixture of equal parts water and hydrogen peroxide (do not swallow!). Or, youcan use a cotton swab to directly apply hydrogen peroxide onto the cut. Mouth wounds can be painfulwhen eating. You may use an [id number] local numbing solution for pain relief. If this is notavailable, you may use any numbing solution for teething babies. You may apply this directly to thesores with a cotton-tip swab or with your [...] off before 7 days Wound edges re-open [id number] [employer] [address] [place] [address], [place] [address]. All rights reserved. This information is not intended as a substitute for professional medical care. Always follow yourhealthcare professional's instructions. Follow Up Care 04/22/2021 22:28:10 With:[place] [place] Address: [address] [place] [address] [place] [address]- When:2-4 days With:[place] [place] Address: [address] [place] [address] [place] [address]- When:2-4 days With:[place] [place] Address: [address] [place], [place] [address] [place], [place] [id number]- When:2-4 days [facility] 12-23-2021 Hospital Discharge instructions Patient Education 04/22/2021 15:43:01 Laceration, Hand: [...] date on this vaccination and the object thatcut you may carry tetanus. Home care Your healthcare provider may prescribe an antibiotic. This is to help prevent infection. Follow allinstructions for taking this medicine. Take the medicine every day until it is gone or you are toldto stop. You should not have any left [...] the stitches dry, clean the wound daily. First,remove the bandage. Then wash the area gently with soap and warm water, or as directed by the healthcare provider. Use a wet cotton swab to loosen and remove any blood or crust that forms. After cleaning, apply a thin layer of antibiotic ointment if advised. Then put on a new bandage unless you aretold not to. Caring for skin glue: Don [...] affected hand Decreased movement of the hand [id number] [employer] [address] [place] [address]. All rights reserved. This information is not intended as a substitute for professional medical care. Always follow yourhealthcare professional's instructions. 04/22/2021 15:42:38 Skin Avulsion Skin [...] will keep the wound clean, make it easierto remove the stitches, and reduce scarring. If [...] becomes wet, blot it dry with a cleantowel. If skin glue was used, don't put [...] some information about medicine: You may use lwqt-rlr-nhwzjqh medicine such as acetaminophen or ibuprofen to [...] will tell you how long stitches should beleft in. If surgical tape was used, it [...] re-open Bleeding not controlled by direct pressure [phone] [employer] [address] [place] [address]. All rights reserved. This information is not intended as a substitute for professional medical care. Always follow yourhealthcare professional's instructions. 04/22/2021 15:42:21 Open Hand Fracture [...] splint gets wet, dry it with a environmental studies department chair on a cool setting. You may use qzzg-gjn-efnsrsh pain medicine to control pain, unless another [...] higher, or as directed by your provider Chills [phone] [employer] [address] [place] [address], [place] [address]. All rights reserved. This information is not intended as a substitute for professional medical care. Always follow yourhealthcare professional's instructions. 04/22/2021 15:42:19 Fracture, Finger, Open [...] injuries are often treated with a splint orcast, or by taping the injured finger to [...] sitting or lying down keep your arm abovethe level of your heart. You can do [...] top end. If a fiberglass cast or splintgets wet, you can dry it with a environmental studies department chair. You may use acetaminophen or ibuprofen to control pain, unless another pain medicine was prescribed. If you have chronic liver or kidney disease, talk with your healthcare provider before using thesemedicines. Also talk with your provider if you [...] or as directed by your healthcare provider [phone] [employer] [address] [place] [address]. All rights reserved. This information is not intended as a substitute for professional medical care. Always follow yourhealthcare professional's instructions. Follow Up Care 04/22/2021 14:39:00 With:TAMMY NAVARRO MD Address: [id number] When:5 to 7 days Comments:Call tomorrow [facility] Discharge summary Author Collins Salguero [facility] July 10, 2022 3:32am Note Date/Time July 10, 2022 3:3 0am [facility] Medical Records Department [address] [place] [address] Emergency Department Summary 07/10/22 MR#: [id number] Acct: [id number] Name: JUAQUIN KHALIL Rep #:[id number] : 1945 76 From: Collins Salguero DO [facility] Status:REG ER Location: ED HPI History of Present Illness Chief Complaint: Cough Narrative Narrative: Patient is a 76-year-old male with past medical history of hypertension coronaryartery disease and mechanical aortic valve replacement. He states that he has had some congestion and cough for the past 3 or 4 days and today spiked a fever of 100.1 at home. He states that because of his persistent symptoms now development of fever he is concerned he is developing an infection and thereforecomes in for evaluation. The patient denies any known sick contacts and he denies any history of lung disorder such as COPD or emphysema or need for supplemental oxygen PFSH PFSH Home Medications cholecalciferol (vitamin D3) 25 mcg (1,000 unit) tablet (Vitamin D3) 1,000 unit PO DAILY 04/03/16 [History Last Taken 04/04/16 08:00] oxycodone-acetaminophen 5 mg-325 mg tablet 1 - 2 tab PO Q4H PRN PRN Pain #15 tabs 04/03/16 [Rx Last Taken Unknown] warfarin 4 mg tablet (Jantoven) 8 mg PO SUTUWETHFRSA 04/03/16 [History Last Taken 04/03/16 17:00 4 mg] allopurinol 100 mg tablet 100 mg PO DAILYCM 04/04/16 [History Last Taken 04/04/16 08:00 100 mg] atorvastatin 40 mg tablet 80 mg PO DAILY 04/04/16 [History Last Taken 04/04/16 08:00 40 mg] cyanocobalamin (vitamin B-12) 1,000 mcg tablet 1,000 mcg PO DAILY 04/04/16 [History Last Taken 04/04/16 08:00 1000 mcg] ferrous sulfate 325 mg (65 mg iron) tablet 325 mg PO TIDCM 04/04/16 [History Last Taken 04/04/16 08:00 325 mg] isosorbide mononitrate 30 mg tablet,extended release 24 hr 30 mg PO DAILY 04/04/16 [History Last Taken 04/04/16 08:00 30 mg] levothyroxine 25 mcg tablet 50 mcg PO DAILY 04/04/16 [History Last Taken 04/04/16 06:00 25 mcg] metoprolol tartrate 25 mg tablet 12.5 mg PO BID 04/04/16 [History Last Taken 04/04/16 08:00 12.5mg] pantoprazole 40 mg tablet,delayed release 40 mg PO BID 04/04/16 [History Last Taken 04/04/16 08:00 40 mg] gabapentin 300 mg capsule 300 mg PO BID 01/10/20 [History Last Taken Unknown] tamsulosin 0.4 mg capsule 0.4 mg PO DAILY 07/09/22 [History Last Taken Unknown] warfarin 4 mg tablet 4 mg PO MO 07/09/22 [History Last Taken Unknown] furosemide 20 mg tablet (Lasix) 20 mg PO DAILY #14 tabs 07/10/22 [Rx Last Taken Unknown] Allergy/AdvReac Type Severity Reaction Status Date / Time hydrocodone bitartrate Allergy Other Verified 01/10/20 10:46 [From Vicodin] Social History Smoking Status: Former smoker ROS ROS ED Constitutional Constitutional ED: Reports fever(s); Denies chills ENT ENT ED: Reports rhinorrhea; Denies sore throat Cardiovascular Cardiovascular: Denies chest pain Respiratory/Chest Respiratory/Chest: Reports cough and dyspnea Gastrointestinal Gastrointestinal: Denies abdominal pain, diarrhea, nausea or vomiting Genitourinary Genitourinary ED: Denies dysuria Musculoskeletal Musculoskeletal: Denies myalgias Integumentary Denies rash Neurologic Neurologic: Denies headache(s) Hematologic/Lymphatic Hematologic/Lymphatic: Reports easy bleeding and easy bruising EXAM Physical Exam Const Vital Signs: 07/09/22 23:14 07/09/22 23:16 07/09/22 23:21 Temperature 98.7 F 98.7 F Temperature Source Temporal Temporal Pulse Rate 86 86 Respiratory Rate 24 H 24 H Respiratory Effort Short of Breath Respiratory Depth Shallow Respiratory Pattern Tachypnea Blood Pressure 153/77 H 153/77 H Blood Pressure Mean 102 102 Pulse Ox 93 93 Oxygen Delivery Method Room Air Room Air Room Air 07/09/22 23:50 07/09/22 23:50 Temperature Temperature Source Pulse Rate 90 Respiratory Rate 20 H 24 H Respiratory Effort Normal Non-Labored Short of Breath Respiratory Depth Shallow Respiratory Pattern Normal Tachypnea Blood Pressure Blood Pressure Mean Pulse Ox 92 Oxygen Delivery Method Room Air Positive well nourished, well developed and obese General Appearance ED: well developed and pallor Nutritional Appearance: obese HEENT Reports moist mucous membranes HEENT Narrative: There is cobblestoning noted in the posterior pharynx consistent with sinus drainage and nasal mucosa is hyperemic and boggy with enlarged inferior nasal turbinates There is no tongue or lip swelling noted. No oral lesions. No airway edema or compromise Eyes PERRL and EOMs intact bilaterally Neck supple and no JVD Resp normal respiratory effort Resp Narrative: Breath sounds are diminished throughout with diffuse rhonchi and faint expiratory wheeze noted in the bilateral bases. There is slight tachypnea present but otherwise no nasal flaring or retractions or accessory muscle use Cardio regular rate and regular rhythm Rate: other Other Details: Radial pulses are plus 2 out of 4 bilaterally are equal and symmetric GI normal to inspection, nondistended, normoactive bowel sounds, non-tender, non-distended and no masses GI Narrative: No voluntary guarding or rigidity no pulsatile mass or fluid wave Auscultation: normoactive bowel sounds Palpation: soft Extremity Extremity Narrative: Patient has +3 pitting edema to the bilateral lower extremities that is equal and symmetric with negative Homans' sign Neuro oriented x3 and CN's II-XII intact bilaterally Sensorium / Orientation: alert Psych mental status grossly normal Skin no rashes or lesions noted General Skin Exam: pallor MDM MDM MDM Narrative Medical decision making narrative: Patient presented to the ER afebrile despite reporting a fever of 100.1 at home. He states he has no history of lung disorder and does not require supplemental oxygen and his pulse ox in room air is 93%. He does have congestion and drainage as well as rhonchi and wheeze concerning for development of infection. There is no JVD despite his leg swelling and I do not hear crackles and therefore concern for congestive heart failure exacerbation is low. Because of the concern for infection I did elect to perform a basic work-up. White count is normal patient is not anemic and there are no electrolyte derangements. His INR is 2.2 which is near therapeutic range for his history of aortic valve replacement and my concern for PE is low as he does not have any pleuritic chestpain and he has coarse breath sounds. The patient's chest x- ray revealed mild cardiomegaly with mild vascular congestion which fits the slight elevation to hisproBNP. However there is no significant pleural effusion or signs of infection and COVID and influenza tests are negative. Patient was ambulated in the department and his pulse ox remained the same. Therefore at this time as he does not have need for supplemental oxygen at rest nor does he desat with ambulation I do not feel there is need for admission. As there is no signs of acute bacterial infection with elevated white count or signs of pneumonia on x-ray does not require antibiotic. I do feel with his report of fever at home that symptoms are most likely viral in nature but as he does have mild vascular congestion on x-ray and slight elevation to his proBNP I will place him on a short course of low-dose Lasix to see if this helps improve symptoms. The plan of care was discussed with the patient and family and both are agreeable to the History & Record Review Discussion w/independent historian: Patient and Family Lab Data Attestation: I reviewed the patient's lab results. Labs: Laboratory Results - last 24 hr 07/10/22 07/10/22 07/10/22 00:06 00:06 00:06 WBC 10.4 RBC 4.68 Hgb 13.3 Hct 41.7 MCV 89.1 MCH 28.4 MCHC 31.9 L RDW Std Deviation 52.7 H RDW Coeff of Clement 15.9 H Plt Count 176 MPV 10.8 Immature Gran % (Auto) 4.400 H Neut % (Auto) 81.4 H Lymph % (Auto) 7.6 L Rich % (Auto) 4.5 Eos % (Auto) 0.9 Baso % (Auto) 1.2 H Absolute Neuts (auto) 8.4 H Absolute Lymphs (auto) 0.79 L Nucleated RBC % 0 PT 23.9 H INR 2.2 Sodium 137 Potassium 4.3 Chloride 102 Carbon Dioxide 28.0 Anion Gap 7 BUN 11 Creatinine 0.78 Estim Creat Clear Calc 64.89 Est GFR (MDRD) Af Amer 125 Est GFR (MDRD) Non-Af 103 BUN/Creatinine Ratio 14.1 Glucose 100 Calcium 8.7 Magnesium 1.7 B-Natriuretic Peptide 07/10/22 00:06 WBC RBC Hgb Hct MCV MCH MCHC RDW Std Deviation RDW Coeff of Clement Plt Count MPV Immature Gran % (Auto) Neut % (Auto) Lymph % (Auto) Rich % (Auto) Eos % (Auto) Baso % (Auto) Absolute Neuts (auto) Absolute Lymphs (auto) Nucleated RBC % PT INR Sodium Potassium Chloride Carbon Dioxide Anion Gap BUN Creatinine Estim Creat Clear Calc Est GFR (MDRD) Af Amer Est GFR (MDRD) Non-Af BUN/Creatinine Ratio Glucose Calcium Magnesium B-Natriuretic Peptide 216.2 H Radiography Diagnostic Testing: Clinical Impression(s) from Imaging Studies Chest X-Ray 07/09/22 00:30 IMPRESSION: Cardiomegaly and mild pulmonary congestion. Electronically Signed: Arianna Brown MD at 1:26 EST Reading Location ID and State: [facility] / [place] , Service support , Chest x-ray as interpreted by the emergency medicine physician reveals cardiomegaly with mild vascular congestion without pleural effusion infiltrate or pneumothorax Discharge Plan Triage Chief Complaint: Cough ED Provider: Collins Salguero Dx/Rx/DC Orders Clinical Impression: Viral syndrome, Dyspnea, Hypertension, Current use of ferry terminal agent anticoagulation Instructions: ED Dyspnea, ED Viral Syndrome (Adult) Prescriptions: New furosemide [Lasix] 20 mg tablet 20 mg PO DAILY Qty: 14 0RF No Action warfarin [Jantoven] 4 MG tablet 8 mg PO SUTUWETHFRSA cholecalciferol (vitamin D3) [Vitamin D3] 1,000 UNIT tablet 1,000 unit PO DAILY oxycodone-acetaminophen 1 TABLET tablet 1 - 2 tab PO Q4H PRN PRN (Reason: Pain) Qty: 15 0RF atorvastatin 40 MG tablet 80 mg PO DAILY isosorbide mononitrate 30 MG tablet 30 mg PO DAILY Label Comments: Heart cyanocobalamin (vitamin B-12) 1,000 MCG tablet 1,000 mcg PO DAILY allopurinol 100 MG tablet 100 mg PO DAILYCM levothyroxine 25 MCG tablet 50 mcg PO DAILY pantoprazole 40 MG tablet 40 mg PO BID Label Comments: stomach ferrous sulfate 325 MG tablet 325 mg PO TIDCM metoprolol tartrate 25 MG tablet 12.5 mg PO BID gabapentin 300 MG capsule 300 mg PO BID warfarin 4 mg Tablet 4 mg PO MO tamsulosin 0.4 mg capsule 0.4 mg PO DAILY Label Comments: Take 1 capsule by mouth once a day Primary Care Provider: [facility] Referrals: [facility] [Primary Care Provider] - Activity Restrictions/Additional Instructions: As she reported a low-grade fever at home and had mild wheezes on your initial exam I do feel your symptoms are related to a viral upper respiratory infection. This will typically take 2 to 3 weeks to resolve. However as your x-ray did show mild vascular congestion please take the water pill/diuretic to help with this and return to the ER should you have any further concerns or worsening of symptoms Disposition Disposition: Home, Self Care What to do if you have Problems For any increased pain, shortness of breath, bleeding, nausea or vomiting, chestpain, or any unexpected problems, contact your Primary Care Provider. Call [facility] ([phone]) or report to the closest Emergency Room. Call 911 if necessary. 07/10/22331 <Electronically signed by Collins Salguero DO> Cosigner Signature (if applicable): CC: [place] [facility] ~ Signed [facility] Work Phone: Evaluation + Plan note No data available for this section [facility] Evaluation noteNo assessment information available [facility] Work Phone: Evaluation note* Diagnosis Onset Date Resolution Status Diarrhea acute [facility] Work Phone: Evaluation note* Diagnosis Onset Date Resolution Status Aortic valve mass acute Hypoxia acute Leukocytosis acute Mass of head of pancreas acu te Pneumonia acute CHF exacerbation chronic [facility] Work Phone: Evaluation note* Diagnosis Encounter for preprocedural cardiovascular examination- Primary Pre-operative cardiovascular examination S/P aortic valve replacement Heart valve replaced by other means 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 Hypertension, unspecified type Nodular goiter Unspecified nontoxic nodular goiter Right sided weakness Muscle weakness (generalized) H/O: stroke Transient ischemic attack (TIA), and cerebral infarction without residual deficits Chronic myeloid leukemia (HCC) Chronic myeloid leukemia, without mention of having achieved remission Unspecified hypothyroidism documented in this encounter [facility] Author Iker Tom [facility] January 13, 2023 7:49am Note Date/Time January 13, 2023 7:49am [facility] Medical Records Department [address] [place] [address] History & Physical Exam 01/13/2348 MR#: [id number] Acct: [id number] Name: JUAQUIN KHALIL Rep #:[id number] : 1945 77 From: Iker wood MD PCP: [facility] Status:REG [facility] Location: [place] [address] History and Physical Date of Admission: 01/13/23 Intake Vital Signs 07/09/2322:14 12/29/2312:32 Height 5 ft 10 in 5 ft 10 in Weight: 238 lb 8 oz BMI 34.2 BP 148/88 H Blood Pressure Location Rt brachial Position Sitting Respiration 16 Pulse 84 Pulse Source Monitor Temp 96.2 F L Temp Source Temporal Intake Visit Reasons: COLONOSCOPY FOR DIARRHEA Chief Complaint: COLONOSCOPY Allergies hydrocodone bitartrate [From Vicodin] Allergy (Verified 12/29/22 13:37) Other Medications cholecalciferol (vitamin D3) 25 mcg (1,000 unit) tablet (Vitamin D3) 1,000 unit PO DAILY 04/03/16 [History Confirmed 12/29/22] oxycodone-acetaminophen 5 mg-325 mg tablet 1 - 2 tab PO Q4H PRN PRN Pain #15 tabs 04/03/16 [Rx Confirmed 12/29/22] warfarin 4 mg tablet (Jantoven) 8 mg PO SUTUWETHFRSA 04/03/16 [History Confirmed 12/29/22] allopurinol 100 mg tablet 100 mg PO DAILYCM 04/04/16 [History Confirmed 07/09/22] atorvastatin 40 mg tablet 80 mg PO DAILY 04/04/16 [History Confirmed 12/29/22] cyanocobalamin (vitamin B-12) 1,000 mcg tablet 1,000 mcg PO DAILY 04/04/16 [History Confirmed 12/29/22] ferrous sulfate 325 mg (65 mg iron) tablet 325 mg PO TIDCM 04/04/16 [History Confirmed 12/29/22] isosorbide mononitrate 30 mg tablet,extended release 24 hr 30 mg PO DAILY 04/04/16 [History Confirmed 12/29/22] levothyroxine 25 mcg tablet 50 mcg PO DAILY 04/04/16 [History Confirmed 12/29/22] metoprolol tartrate 25 mg tablet 12.5 mg PO BID 04/04/16 [History Confirmed 12/29/22] pantoprazole 40 mg tablet,delayed release 40 mg PO BID 04/04/16 [History Confirmed 12/29/22] gabapentin 300 mg capsule 300 mg PO BID 01/10/20 [History Confirmed 12/29/22] tamsulosin 0.4 mg capsule 0.4 mg PO DAILY 07/09/22 [History Confirmed 12/29/22] warfarin 4 mg tablet 4 mg PO MO 07/09/22 [History Confirmed 12/29/22] furosemide 20 mg tablet (Lasix) 20 mg PO DAILY #14 tabs 07/10/22 [Rx Confirmed 12/29/22] PFSH Medical History (Updated 12/29/22 @ 14:[address] Iker Tom MD) Cholecystectomy planned FH: bilateral hip replacements Surgical History (Updated 12/29/22 @ 13:32 by Feli Almanzar) History of open heart surgery Social History Smoking Status: Former smoker HPI HPI HPI: Patient is a 77-year-old male sent here by the [place] for colonoscopy. Patient reports no abdominal pain. He says that he goes a few days without having a bowel movement and is very hard to pass and then he has diarrhea for the next entire day. He says it has been going on for several years. He says his last colonoscopy was 9 years ago. The only report I got back was from 2008. ROS General General: No weight change, appetite, fatigue, colon cancer, breast cancer or weakness HEENT HEENT: Yes difficulty swallowing; No eye injury, eye surgery, swollen glands or hoarseness Endo Endocrine: No thyroid disease, diabetes mellitus, thyroid cancer, Hair loss, heat intolerance or cold intolerance Skin Skin: No rash or changing moles Breast Breast: No left breast lump, right breast lump, nipple discharge, breast pain, abnormal mammogram, abnormal US or breast enlargement Musc Musculoskeletal: Yes arthritis and gout; No back problems, rheumatoid arthritis or joint pain Cardio Cardiovascular: No murmur, pacemaker, heart disease, atrial fibrillation, high blood pressure, heart attack, heart stent, palpitations, shortness of breat withexertion or chest pain Psych Psychiatric: No depression, anxiety or hearing voices Resp Respiratory: No shortness of breath, No sleep apnea, No cough, No COPD, No asthma, No emphysema and No wheezing Gastro Gastrointestinal: No abdominal pain, No nausea or vomiting, No diarrhea, No constipation, No blood in stool, No acid reflux, No hemorrhoids, No ulcers, No gallbladder problem and No black,tarry stools Fredy Hematologic: No blood thinners, No blood disorders, No bleeding, No anemia and No blood clots Neuro Neurologic: No system reviewed and no additional complaints, except as documented, No as per HPI, No abnormal hearing, No abnormal movements, No abnormal speech, No behavioral changes, No burning sensations, No confusion, No convulsions, No disequilibrium, No dizziness, No localized weakness, No frequentfalls, No headache(s), No lack of coordination, No loss of vision, No memory loss, No numbness, No other visual disturbances, No radicular pain, No restless legs, No sensory deficit, No syncope, No tingling, No tremor(s), No weakness andYes other (cva) Exam Const General: cooperative Orientation: alert and oriented x3 HENMT Head: normal to inspection Neck Neck: normal visual inspection and full ROM Chest Chest palpation & inspection: normal inspection of the chest Resp Effort & Inspection: normal respiratory effort Auscultation: clear to auscultation bilaterally Cardio Rate: regular rate Rhythm: regular rhythm GI Inspection: non-distended Palpation: soft and nontender Skin General: no rashes or lesions noted Neuro General: patient alert and patient oriented x3 Extrem General: full ROM Psych Appearance: grossly normal Mental Status: mental status grossly normal Assessment and Plan Assessment and Plan (1) Diarrhea: Status: Acute Qualifiers: Diarrhea type: unspecified type Qualified Code(s): R19.7 - Diarrhea, unspecified Plan: Patient has been having a lot of alternating constipation and diarrhea. His last colonoscopy was at least 9 years ago and he did have polyps. He was recommended for colonoscopy by the [place]. Patient is on Coumadin for mechanical heart valve. He says he will talk to his Coumadin clinic and they will prescribe him bridging Lovenox. [place] has provided him a bowel prep. I explained endoscopy in detail to the patient. I explained the risks includingbut not limited to stroke or heart attack with anesthesia, perforation of the GItract, bleeding, infection. I explained that any of these could necessitate further emergency surgery. The patient understands and all questions were answered sufficiently. The patient wishes to proceed with procedure. Iker Tom MD Pager: [facility] [address] [place] [address], [address] [place] [address] Office: I have examined the patient and the H&P has been reviewed. There are no clinicalchanges since date of exam. 01/13/23 0749 <Electronically signed by Iker Tom MD> Cosigner Signature (if applicable): CC: Dr. Iker Tom MD; [facility]~ Signed [facility] Work Phone: Hospital Discharge instructions Additional Instructions As she reported a low-grade fever at home and had mild wheezes on your initial exam I do feel your symptoms are related to a viral upper respiratory infection. This will typically take 2 to 3 weeks to resolve. However as your x-ray did show mild vascular congestion please take the water pill/diuretic to help with this and return to the ER should you have any further concerns or [facility] Work Phone: Summary Purpose Family History No Family History Records Found Relationship Condition Age at Onset Recorded Date/T carlos enrique Unknown Family History?Cancer, Diabetes Unknown April 06, 2016 1:23am Additional Family Hi story?no FH for kidney disease Unknown April 06, 2016 1:23am Relationship Condition Age at Onset Recorded Date/T carlos enrique Unknown Family History?Cancer, Diabetes Unknown April 06, 2016 12:23am Additional Family Hi story?no FH for kidney disease Unknown April 06, 2016 12:23am Advance Directives No Advanced Directives Records Found Advance Directive Response Recorded Date/ Time Advance Directives Yes April 04, 2016 10:56pm Living Will Yes July 10, 2022 12:16am Power of Yoghurt Maker Yes July 10 12:16am Name of Medical Power of Yoghurt Maker RAMÍREZ KHALIL July 10, 2022 12:16am Advance Directive Response Recorded Date/ Time Name of Medical Power of Yoghurt Maker RAMÍREZ KHALIL January 10, 2023 10:40am Advance Directives Yes April 04, 2016 10:56pm Living Will Yes January 10, 2023 10:40am Power of Yoghurt Maker Yes December 10:40am Advance Directive Response Recorded Date/ Time Name of Medical Power of Yoghurt Maker Ramírez Khalil May 19, 2023 12:26am Advance Directives Yes April 04, 2016 9:56pm Living Will Yes May 19 12:26am Power of Yoghurt Maker Yes May 19, 2023 12:26am Chief Complaint and Reason for Visit Chief Complaint COUGH Chief Complaint COLONOSCOPY FOR CHRIS GONZALEZ Reason for Visit Diarrhea Chief Complaint PNEUMONIA, AE CHF AN D PANCREATIC HEAD MASS PNEUMONIA, AE CHF AND PANCREATIC HEAD MASS PNEUMONIA, AE CHF AND PANCREATIC HEAD MASS PNEUMONIA, AE CHF AND PANCREATIC HEAD MASS PNEUMONIA, AE CHF AND PANCREATIC HEAD MASS PNEUMONIA, AE CHF AND PANCREATIC HEAD MASS PNEUMONIA, AE CHF AND PANCREATIC HEAD MASS Reason for Visit Aortic valve mass Hypoxia Leukocytosis Mass of head of pancreas Pneumonia CHF exacerbation Additional Source Comments Source Comments (unrecognize d section and content) In the event this informatio n is protected by the Federal Confidentiality of Alcohol and Drug Abuse Patient Records regulations: The Federal rules restrict any use of the information to criminally investigate or prosecute any alcohol or drug abuse patient.[facility] the event this information is protected by the Federal Confidentiality of Alcohol and Drug Abuse Patient Records regulations: The Federal rules restrict any use of the information to criminally investigate or prosecute any alcohol or drug abuse patient.[facility] the event this information is protected by the Federal Confidentiality of Alcohol and Drug Abuse Patient Records regulations: The Federal rules restrict any use of the information to criminally investigate or prosecute any alcohol or drug abuse patient.[facility] (unrecognized sect ion and content) No Status Records FoundNo Status Records FoundNo Status Records FoundNo Status Records Found INFORMATION SOURCE (unrecogn ized section and content) DATE CREATED AUTHOR 06/12/2021 [facility] ([place]) DATE CREATED AUTHOR AUTHOR'S ORGANIZ ATION 04/23/2024 [facility] DATE CREATED AUTHOR AUTHOR'S ORGANIZ ATION 05/22/2024 [facility] DATE CREATED AUTHOR AUTHOR'S ORGANIZ ATION 12/17/2024 [facility] Care Teams (unrecognized sec tion and content) Team Status: Active Member Role Status Dates [facility] Family Provider Active [facility] Primary Care Provider Active Team Status: Inactive Member Role Status Dates [facility] Primary Care Provider Active Dr. Collins Salguero , Emergency Provider Active Team Status: Inactive Member Role Status Dates [facility] Primary Care Provider, Referring Provider Active Dr. Iker Tom MD Attending Provider Active Team Status: Active Member Role Status Dates [facility] Primary Care Provider, Referring Provider Active Dr. Iker Tom MD Attending Provider, Other Provider Active Team Status: Active Member Role Status Dates [facility] Primary Care Provider Active Dr. Leighton Drake DO Emergency Provider Active Dr. Desmond Owen , DO Admit Provider, Other Provid er Active Dr. Constantino Albarado , DO Attending Provider, Other Pro vider Active Team Status: Active Member Role Status Dates [facility] Primary Care Provider Active Dr. Chester Montano MD Attending Provider Active Team Status: Active Member Role Status Dates [facility] Primary Care Provider Active Dr. Leighton Drake DO Emergency Provider Active Dr. Desmond Owen DO Admit Provider, Other Provid er Active Dr. Jaya Patel , DO Attending Provider, Other Provider Active Dr. Constantino Albarado , DO Other Provider Active Team Status: Active Member Role Status Dates [facility] Primary Care Provider Active Dr. Leighton Drake , DO Emergency Provider Active Dr. Desmond Owen , DO Admit Provider, Other Provid er Active Dr. Jaya Patel , DO Attending Provider, Other Provider Active Dr. Constantino Albarado , DO Other Provider Active Dr. Chester Montano MD Other Provider Active Team Status: Active Member Role Status Dates [facility] Primary Care Provider Active Dr. Leighton Drake , DO Emergency Provider Active Dr. Desmond Owen , DO Admit Provider, Other Provid er Active Dr. Jaya Patel , DO Other Provider Active Dr. Constantino Albarado , DO Other Provider Active Dr. Chester Montano MD Attending Provider, Other Provid er Active Team Status: Active Member Role Status Dates [facility] Primary Care Provider Active Dr. Leighton Drake , DO Emergency Provider Active Dr. Desmond Owen , DO Admit Provider, Other Provid er Active Dr. Constantino Albarado , DO Other Provider Active Dr. Chester Montano MD Other Provider Active Dr. Desmond Castaneda MD Attending Provider, Other Provid er Active Dr. Jaya Patel , DO Other Provider Active Team Status: Active Member Role Status Dates [facility] Primary Care Provider Active Dr. Moreno Bob MD Attending Provider Active Team Status: Inactive Member Role Status Dates [facility] Primary Care Provider Active Dr. Leighton Drake , DO Emergency Provider Active Dr. Desmond Owen , DO Admit Provider, Other Provid er Active Dr. Constantino Albarado , DO Other Provider Active Dr. Chester Montano MD Other Provider Active Dr. Desmond Castaneda MD Attending Provider Active Dr. Jaya Patel , Other Provider Active [employer] Cleaner Relationship Specialty Start Date End Date Leanna Solares APRN [address] [place] [address] PCP - General Primary Care 11/25/24 Alexander Ramirez MD [address] [place] [address] Surgeon Cardiac Surg 11/18/24 Goals (unrecognized section and content) Goals may be documented in a n alternate section Reason for Visit (unrecogniz ed section and content) Reason Comments Referral Information FOR RECORDS PERTAINING TO PATIENTS WHO ARE [...] BE BASED ON THE PRIMARY CLINICAL RECORDS. [facility] [employer] [facility]. provides no warranty or guarantee of the accuracy or completeness of information in this document.
[2024-12-18] MEDS: 0.9% Saline Lock 10 ML Syringe IV (20:52)
[2024-12-19 04:50] VITALS: BP 159/59; PULSE 79; RESP 16; TEMP 36.3; O2SAT 95
--- NOTE | 2024-12-19 05:32 | EKG12_ITS ---
Test Reason : CP Blood Pressure : */* mmHG Vent. Rate : 73 BPM Atrial Rate : * BPM P-R Int : * ms QRS Dur : 84 ms QT Int : 420 ms P-R-T Axes : * 27 79 degrees QTcB Int : 462 ms Atrial fibrillation Nonspecific T wave abnormality Prolonged QT Abnormal ECG When compared with ECG of 18-Dec-2024 15:26, MANUAL COMPARISON REQUIRED DATA IS UNCONFIRMED Confirmed by SHANA ALCAZAR, COURT ([id number]), magazine editor FEDERICO ROSS ([id number]) on 12/19/2024 1:37:27 PM Referred By: Confirmed By: COURT SALDANA MD
[2024-12-19 05:50] LABS: Hematocrit 33.8 % (40-54); Hemoglobin 11.0 g/dL (13.0-16.5); Mean Corp Hgb Conc 32.5 g/dL (32-36); Mean Corpuscular Volume 89.9 fL (80-94); Mean Platelet Vol. 10.1 fl (6.2-12.0); Platelet Count 286 K/mm3 (150-450); RBC Distribution Width CV 15.9 % (11.6-14.6); RBC Distribution Width SD 52.6 fl (35.1-43.9); Red Blood Count 3.76 M/mm3 (4.6-6.2); White Blood Count 5.9 K/mm3 (4.4-11.0)
[2024-12-19 06:05] LABS: Prothrombin Time (Protime)PT. 35.8 SECONDS (11.7-14.9)
[2024-12-19 06:15] LABS: Anion Gap 9 (5-15); BUN 7 mg/dL (4-19); BUN/Creat Ratio 10.1 RATIO (10-20); Calcium,Total 7.9 mg/dL (7.6-11.0); Carbon Dioxide 27.4 mmol/L (21.0-32.0); Chloride 104 mmol/L (98-108); Estimated Creatinine Clearance 88.53 ml/min (50-250); Glucose 96 mg/dL (70-99); Potassium 3.4 mmol/L (3.3-5.1)
[2024-12-19 07:31] VITALS: PULSE 94
[2024-12-19 10:17] VITALS: BP 165/73; PULSE 79; RESP 16; TEMP 36.7; O2SAT 95
[2024-12-19 10:26] VITALS: PULSE 79
--- NOTE | 2024-12-19 14:58 | PN_ITS ---
Subjective Subjective Patient seen and examined with his nurse by his bedside. He had just finished having his 2D echo. He had no active complaints. Fever, chills, shortness of breath, palpitations, nausea or vomiting or any other symptoms. Review of systems otherwise negative. Objective Data Objective Data Vital Signs: Vital Signs Temp Pulse Resp BP Pulse Ox O2 Del Method 98.1 F 79 16 165/73 H 95 Room Air 12/19/24 10:17 12/19/24 10:26 12/19/24 10:17 12/19/24 10:17 12/19/24 10:17 12/19/24 10:17 Oxygen Delivery Method Room Air Weight: 219 lb 5.759 oz Body Mass Index (BMI) 31.4 Intake & Output: Intake and Output for Last 24 Hours 12/17/24 12/18/24 12/19/24 23:59 23:59 23:59 Intake Total 50 / 50 50 / 50 Output Total 1900 / 1900 Balance 50 / 50 -1850 / -1850 Lab / Micro Data 12/19/24 05:28 12/19/24 05:28 Labs: Laboratory Results - last 24 hr 12/18/24 14:55: WBC 6.1, RBC 3.67 L, Hgb 10.7 L, Hct 33.7 L, MCV 91.8, MCH 29.2, MCHC 31.8 L, RDW Std Deviation 54.5 H, RDW Coeff of Clement 16.0 H, Plt Count 277, MPV 10.3, Immature Gran % (Auto) 1.300 H, Neut % (Auto) 71.5 H, Lymph % (Auto) 14.0 L, [place] % (Auto) 8.9, Eos % (Auto) 3.8, Baso % (Auto) 0.5, Absolute Neuts (auto) 4.3, Absolute Lymphs (auto) 0.85, Nucleated RBC % 0, PT 39.3 H, INR 3.9, Sodium 139, Potassium 4.4, Chloride 103, Carbon Dioxide 25.3, Anion Gap 10, BUN 8, Creatinine 0.68 L, Estim Creat Clear Calc 90.10, Est GFR (MDRD) Non-Af 95, BUN/Creatinine Ratio 12.5, Glucose 90, Lactic Acid 2.1 H*, Calcium 8.5, Troponin T High Sens 25 H, NT pro BNP II 4901 H 12/18/24 16:10: Urine Color Yellow, Urine Clarity Sl. Cloudy, Urine pH 6.5, Ur Specific [place] 1.010, Urine Protein 30 H, Urine Glucose (UA) Normal, Urine Ketones Negative, Urine Occult Blood Negative, Urine Nitrite Positive H, Urine Bilirubin Negative, Urine Urobilinogen 4 H, Ur Leukocyte Esterase 500 H, Urine RBC 0-5 SEEN, Urine WBC 5-10 SEEN, Ur Squamous Epith Cells 0-5 SEEN, Urine Bacteria 1+, Urine Mucus 0 SEEN 12/18/24 16:45: Troponin T Hi Sens 2 Hr 33 H 12/18/24 19:07: Lactic Acid 1.7, Troponin T Hi Sens 4Hr 22 12/19/24 05:28: WBC 5.9, RBC 3.76 L, Hgb 11.0 L, Hct 33.8 L, MCV 89.9, MCH 29.3, MCHC 32.5, RDW Std Deviation 52.6 H, RDW Coeff of Clement 15.9 H, Plt Count 286, MPV 10.1, PT 35.8 H, INR 3.5, Sodium 140, Potassium 3.4, Chloride 104, Carbon Dioxide 27.4, Anion Gap 9, BUN 7, Creatinine 0.67 L, Estim Creat Clear Calc 88.53, Est GFR (MDRD) Non-Af 95, BUN/Creatinine Ratio 10.1, Glucose 96, Calcium 7.9 Micro: Microbiology 12/18/24 16:10 Urine, Clean Catch Urine Culture - Preliminary GNR lactose executive chairman Gram negative valerio 12/18/24 14:55 Mucosa - Nose SARS-CoV-2, Influenza & RSV (PCR) - Final Radiography Diagnostic Testing: Radiology Impression Chest X-Ray 12/18/24 15:05 IMPRESSION: Pulmonary findings as above. Reading Location: [facility] Brain CT 12/18/24 15:10 IMPRESSION: No acute intracranial abnormality. Left frontotemporal encephalomalacia. Reading Location: [facility] Echocardiogram 12/18/24 18:21 Interpretation Summary Normal LV size. Left ventricular systolic function is normal. The left ventricular ejection fraction is 60 %. Stable appearing mechanical aortic valve apparatus. Mean aortic valve gradient 22 mmHg. The left atrium is moderately enlarged. The right atrium is moderately enlarged. Contrast injection was performed. Ordering Physician: Jaya Patel Referring Physician: [facility] Performed By: Linda Chavez RCS Physical Exam Const alert, oriented x3 and no apparent distress General Appearance: cooperative HEENT normocephalic, head/scalp atraumatic, moist oral mucous membranes and oropharynx normal Eyes EOMs intact bilaterally Neck supple and no JVD General: trachea midline Lymph Lymphatic: no lymphedema noted Resp Resp Narrative: mildly diminished breath sounds bibasally, no wheezes or crackles. On room air. Cardio regular rate, regular rhythm, S1 normal heart sound, S2 normal heart sound and no murmurs GI normal to inspection, nondistended, normoactive bowel sounds, soft to palpation and non-tender Extremity normal capillary refill, no clubbing, cyanosis or edema and no calf tenderness General Extremity: no tenderness to palpation of joints or extremities Skin General Skin Exam: no breakdown Neuro no focal motor deficits and no sensory deficits noted Motor Exam: strength 5/5 throughout and general weakness Psych thought process normal, cooperative and affect normal Appearance: appropriate Assessment & Plan Assessment/Plan (1) Acute exacerbation of chronic heart failure: (2) Acute UTI: PLAN: Plan #Acute on chronic heart failure in the setting of failing mechanical aortic valve * Admitted with complaint of near syncope and shortness of breath. He has mechanical aortic valve and had been told by his offc spec at [facility] that the valve was failing and he will require a new surgical valve replacement soon. * Chest x-ray showed vascular congestion and he also had elevated BNP on admission. Being diuresed with IV Lasix 40 mg twice daily. * Breathing treatments bronchodilators. Titrate oxygen to maintain saturation above 90%. * #Mechanical aortic valve: On Coumadin. INR was 3.9 on admission so Coumadin on hold. Will monitor INR with a goal of 2.5-3.5. #UTI: Urinalysis showed 1+ bacteria with positive nitrites and 500 leukocyte esterase. On IV ceftriaxone. Urine cultures growing gram negative valerio lactose executive chairman; speciation is pending. #History of CAD s/p stents: On aspirin and high intensity statin as well as metoprolol #Hypertension: On metoprolol #Hypothyroidism: On Synthroid #GERD: On PPI #BPH with obstructive symptoms: On finasteride and Flomax #History of peripheral neuropathy: On gabapentin #History of gout: On allopurinol DVT prophylaxis: on coumadin. INR is down to 3.5 today, from 3.9 yesterday. Charges/Coding Visit Charges Inpatient E&M: 51888 Subs Hosp L2
--- NOTE | 2024-12-19 15:03 | CASEMGMT ---
BLANCO Met with patient to complete BLANCO form. BLANCO form and its content were verbally explained and patient's questions were answered to the best of my ability.? Patient voiced understanding and signed BLANCO form.? Patient provided a copy of signed BLANCO form and original placed in patient's chart.? Patient had no further questions. Kalina Bermudez, Discharge Planning Asst
[2024-12-19 15:46] VITALS: BP 145/62; PULSE 68; RESP 16; TEMP 36.8; O2SAT 96
[2024-12-19 21:36] VITALS: BP 143/67; PULSE 78; RESP 16; TEMP 36.6; O2SAT 92
[2024-12-19] MEDS: MELATONIN 3 MG TABLET PO (21:39)
[2024-12-20 04:12] VITALS: BP 136/69; PULSE 87; RESP 16; TEMP 36.5; O2SAT 95
[2024-12-20 05:45] LABS: Hematocrit 35.1 % (40-54); Hemoglobin 11.5 g/dL (13.0-16.5); Immature Granulocytes Count 0.100 X10^3/uL (0.0-0.0); Mean Corp Hgb Conc 32.8 g/dL (32-36); Mean Corpuscular Volume 89.1 fL (80-94); Mean Platelet Vol. 10.2 fl (6.2-12.0); NRBC Flagged by Analyzer 0 % (0-5); Platelet Count 326 K/mm3 (150-450); RBC Distribution Width CV 15.9 % (11.6-14.6); RBC Distribution Width SD 52.2 fl (35.1-43.9); Red Blood Count 3.94 M/mm3 (4.6-6.2); White Blood Count 6.2 K/mm3 (4.4-11.0)
[2024-12-20 06:56] LABS: Anion Gap 10 (5-15); BUN 8 mg/dL (4-19); BUN/Creat Ratio 10.2 RATIO (10-20); Calcium,Total 8.3 mg/dL (7.6-11.0); Carbon Dioxide 28.0 mmol/L (21.0-32.0); Chloride 100 mmol/L (98-108); Estimated Creatinine Clearance 88.53 ml/min (50-250); Glucose 98 mg/dL (70-99); Potassium 3.3 mmol/L (3.3-5.1)
[2024-12-20 10:33] VITALS: BP 106/91; PULSE 97; RESP 16; TEMP 36.7; O2SAT 98
[2024-12-20 10:36] VITALS: BP 106/91; PULSE 97
[2024-12-20] MEDS: 0.9% Saline Lock 10 ML Syringe IV (10:52)
[2024-12-20 17:18] VITALS: BP 135/51; PULSE 60; RESP 16; TEMP 36.6; O2SAT 94
--- NOTE | 2024-12-20 20:58 | PCM.HOSP.N ---
Hospitalist Note Patient with onset notable coughing, notes abdominal muscle pain worsening as a result of ongoing coughing fits. Will obtain full respiratory viral panel, CXR upon admission 12/18/24 noted, will plan repeat CXR in AM to be cautious given coughing, will place on cough syrup guaifenesin with codeine given severity of coughing.
[2024-12-20 22:13] VITALS: BP 141/62; PULSE 79; RESP 16; TEMP 36.8; O2SAT 91
[2024-12-20] MEDS: MELATONIN 3 MG TABLET PO (22:19)
[2024-12-21 04:03] VITALS: BP 146/94; PULSE 72; RESP 16; TEMP 36.8; O2SAT 92
--- NOTE | 2024-12-21 05:25 | RAD_ITS ---
PROCEDURE: CHEST 1 VIEW (PORTABLE) 12/21/2024 REASON FOR EXAM: DYSPNEA, COUGH TECHNIQUE: Frontal view of the chest. COMPARISON: Chest x-ray 12/18/2024. FINDINGS: Hardware: Status post median sternotomy. Heart: Mild cardiomegaly. Lungs: Clear. No pleural effusion or pneumothorax. Bones: No acute bony abnormalities. Other: RAD/Chest 1 View (Portable) IMPRESSION: No acute cardiopulmonary abnormalities. Reading Location: [id number]
--- NOTE | 2024-12-21 06:23 | NURSING ---
Reviewed and agreed on charting with Lupillo Sheikh RN
[2024-12-21 06:37] LABS: Hematocrit 34.8 % (40-54); Hemoglobin 11.6 g/dL (13.0-16.5); Immature Granulocytes Count 0.080 X10^3/uL (0.0-0.0); Mean Corp Hgb Conc 33.3 g/dL (32-36); Mean Corpuscular Volume 87.9 fL (80-94); Mean Platelet Vol. 9.6 fl (6.2-12.0); NRBC Flagged by Analyzer 0 % (0-5); Platelet Count 298 K/mm3 (150-450); RBC Distribution Width CV 15.7 % (11.6-14.6); RBC Distribution Width SD 50.5 fl (35.1-43.9); Red Blood Count 3.96 M/mm3 (4.6-6.2); White Blood Count 6.2 K/mm3 (4.4-11.0)
[2024-12-21 06:57] LABS: Anion Gap 10 (5-15); BUN 8 mg/dL (4-19); BUN/Creat Ratio 11.7 RATIO (10-20); Calcium,Total 8.3 mg/dL (7.6-11.0); Carbon Dioxide 27.1 mmol/L (21.0-32.0); Chloride 100 mmol/L (98-108); Estimated Creatinine Clearance 88.53 ml/min (50-250); Glucose 101 mg/dL (70-99); Potassium 3.4 mmol/L (3.3-5.1)
[2024-12-21 09:47] VITALS: BP 123/60; PULSE 77; RESP 16; TEMP 36.7; O2SAT 93
[2024-12-21 09:53] VITALS: BP 123/60; PULSE 77
--- NOTE | 2024-12-21 12:34 | CASEMGMT ---
PT is recommending HHC for the pt, see notes. The pt may DC today, per the hospitalist. VASILIY BOOTH to the pt room at this time. Pt is A&Ox4, resting comfortably in the chair, and is calm. This RN EMMY reviewed how the pt did with therapy and that they are recommending HHC. However, pt denies the need. Pt states that his will be able to provide him with enough support at home. Pt states that he feels safe returning home with the support of his and denies further questions or concerns at this time. Pt was educated to [facility] were to change his mind about [facility]. Pt states understanding.
--- NOTE | 2024-12-21 13:21 | PCM.DC.SUM ---
Providers Date of Admission: 12/18/24 Date of Discharge: 12/21/24 Primary Care Physician: [facility] Reason For Visit: PRESYNCOPAL SYMPTOMS W/ CONCERN FOR CHF Diagnosis Discharge Diagnosis (1) Acute exacerbation of chronic heart failure: Status: Acute Code(s): I50.9 - Heart failure, unspecified (2) Acute UTI: Status: Acute Code(s): N39.0 - Urinary tract infection, site not specified Plan #Acute on chronic heart failure in the setting of failing mechanical aortic valve Admitted with complaint of near syncope and shortness of breath. He has mechanical aortic valve and had been told by his can filling and closing machine tender at [facility] that the valve was failing and he will require a new surgical valve replacement soon. Chest x-ray showed vascular congestion and he also had elevated BNP on admission. Being diuresed with IV Lasix 40 mg twice daily. Breathing treatments bronchodilators. Titrate oxygen to maintain saturation above 90%. #Mechanical aortic valve: On Coumadin. INR was 3.9 on admission so Coumadin on hold. Will monitor INR with a goal of 2.5-3.5. #UTI: Urinalysis showed 1+ bacteria with positive nitrites and 500 leukocyte esterase. On IV ceftriaxone. Urine cultures growing gram negative valerio lactose clinical asst; speciation is pending. #History of CAD s/p stents: On aspirin and high intensity statin as well as metoprolol #Hypertension: On metoprolol #Hypothyroidism: On Synthroid #GERD: On PPI #BPH with obstructive symptoms: On finasteride and Flomax #History of peripheral neuropathy: On gabapentin #History of gout: On allopurinol DVT prophylaxis: on coumadin. INR is down to 3.5 today, from 3.9 yesterday. Medications at Discharge Home Medications warfarin 4 mg tablet (Jantoven) 4 mg PO SUTUWETHFRSA blood thinner 04/03/16 allopurinol 100 mg tablet 100 mg PO DAILYCM gout 04/04/16 atorvastatin 40 mg tablet 80 mg PO DAILY cholesterol 04/04/16 ferrous sulfate 325 mg (65 mg iron) tablet 325 mg PO DAILY supplement 04/04/16 isosorbide mononitrate 30 mg tablet,extended release 24 hr 30 mg PO DAILY chest pain 04/04/16 levothyroxine 25 mcg tablet 50 mcg PO DAILY thyroid 04/04/16 metoprolol tartrate 25 mg tablet 25 mg PO DAILY blood pressure 04/04/16 pantoprazole 40 mg tablet,delayed release 40 mg PO BID reflux 04/04/16 gabapentin 300 mg capsule 300 mg PO DAILY nerve pain 01/10/20 tamsulosin 0.4 mg capsule 0.4 mg PO DAILY prostate 07/09/22 aspirin 81 mg capsule 81 mg PO DAILY heart health 01/10/23 finasteride 5 mg tablet 5 mg PO DAILY prostate 05/18/23 warfarin 2 mg tablet (Jantoven) 2 mg PO DAILY blood thinner 05/19/23 hydrocodone-acetaminophen 5-325mg 5mg-325mg 1 tab PO Q4H PRN PRN Pain 2 days #14 TABLETS 02/13/24 furosemide 40 mg tablet 40 mg PO BIDLX #60 tabs 12/21/24 nitrofurantoin monohydrate/macrocrystals 100 mg capsule 100 mg PO BID #8 caps 12/21/24 potassium chloride 20 mEq tablet,extended release (K-Tab) 20 meq PO DAILY #30 tabs 12/21/24 Hospital Course Operations None Summary of Care Provided Minutes Spent on Discharge: 42 Hospital Course: Patient is a 79-year-old male with a past medical history as outlined was admitted through the ED on 12/18/2024 with a complaint of presyncope and shortness of breath with exertion. Patient lives at home with his initially had decent functional baseline status. He had a mechanical aortic valve in place and had been following up with [facility] cardiology and says he was told that the valve was failing and he will need a replacement of the valve. He was also told that the valve was leaking. He came in with the above-mentioned symptoms and was noted to have an elevated proBNP of 4901. Troponins essentially remained flat. EKG showed controlled A-fib with no RVR and no acute ischemic changes. He was admitted and managed for acute exacerbation of heart failure in the setting of presyncope. He was diuresed with IV Lasix. He had 2D echo which showed EF of 60% and stable appearing mechanical aortic valve apparatus. His symptoms improved and he felt much better. He was weaned down to room air. He was discharged home on 12/21/2024 on p.o. Lasix 40 mg twice daily with potassium supplementation. He is follow-up with his primary care doctor and is also to follow-up with his can filling and closing machine tender within 1 to 2 weeks for evaluation of his leaky valve. Of note INR was elevated on admission at 3.9 by subsequently trended down to therapeutic level of 2.5-3.5. He was therefore continued on his Coumadin. He is follow-up with his primary care doctor for reevaluation of his Coumadin to determine INR dosing. Of note, patient was also treated for UTI during this admission and his urine cultures grew Enterobacter Cloacae and Pantoea species both of which were sensitive to nitrofurantoin. He was therefore switched to oral nitrofurantoin for 5-day course. Patient seen and examined prior to discharge. He felt better and had no complaints. He worked with therapy and did well. Review of systems otherwise negative. Labs and vitals reviewed. Home medication reviewed and reconciled. Physical Exam Const alert, oriented x3 and no apparent distress General Appearance: cooperative and comfortable HEENT normocephalic, head/scalp atraumatic, hearing grossly normal bilaterally, nasal mucous membranes and turbinates normal, moist oral mucous membranes and oropharynx normal Eyes PERRL, EOMs intact bilaterally and conjunctivae normal Neck full ROM, supple and no JVD General: trachea midline Lymph Lymphatic: no lymphedema noted Chest inspection of chest normal Resp Resp Narrative: mildly diminished breath sounds bibasally, no wheezes or crackles. On room air. Cardio regular rate, S1 normal heart sound, S2 normal heart sound, no murmurs and peripheral pulses 2+ throughout Cardio Narrative: A-fib, rate controlled. GI normal to inspection, nondistended, normoactive bowel sounds, soft to palpation, non-tender and non-distended Back/Spine normal ROM Extremity normal to inspection, full ROM, normal capillary refill, no clubbing, cyanosis or edema, no calf tenderness and no pedal edema General Extremity: no tenderness to palpation of joints or extremities Skin no rashes or lesions noted General Skin Exam: no breakdown Neuro oriented x3, moves all extremities, no focal motor deficits and no sensory deficits noted Sensorium / Orientation: awake Motor Exam: strength 5/5 throughout and general weakness Psych mental status grossly normal, thought process normal, cooperative and affect normal Appearance: appropriate Weight / BMI Weight Weight: 219 lb 5.759 oz Body Mass Index (BMI) 31.4 ABG / Lab / Microbiology Data 12/21/24 05:57 12/21/24 05:57 Laboratory: Laboratory Results - last 24 hr 12/21/24 05:57: WBC 6.2, RBC 3.96 L, Hgb 11.6 L, Hct 34.8 L, MCV 87.9, MCH 29.3, MCHC 33.3, RDW Std Deviation 50.5 H, RDW Coeff of Clement 15.7 H, Plt Count 298, MPV 9.6, Immature Gran % (Auto) 1.300 H, Neut % (Auto) 72.8 H, Lymph % (Auto) 14.3 L, [place] % (Auto) 8.0, Eos % (Auto) 3.0, Baso % (Auto) 0.6, Absolute Neuts (auto) 4.5, Absolute Lymphs (auto) 0.89, Nucleated RBC % 0, Sodium 137, Potassium 3.4, Chloride 100, Carbon Dioxide 27.1, Anion Gap 10, BUN 8, Creatinine 0.67 L, Estim Creat Clear Calc 88.53, Est GFR (MDRD) Non-Af 95, BUN/Creatinine Ratio 11.7, Glucose 101 H, Calcium 8.3 Microbiology: Microbiology 12/20/24 21:10 Mucosa - Nasopharyngeal Respiratory Panel (PCR) - Final 12/18/24 16:10 Blood Culture (Wb) - Anticubital Right Blood Culture - Preliminary No growth in 48 hours. 12/18/24 14:55 Blood Culture (Wb) - Anticubital Right Blood Culture - Preliminary No growth in 48 hours. 12/18/24 16:10 Urine, Clean Catch Urine Culture - Final Enterobacter cloacae complex Pantoea spp 12/18/24 14:55 Mucosa - Nose SARS-CoV-2, Influenza & RSV (PCR) - Final Radiography Diagnostic Testing: Radiology Impression Chest X-Ray 12/21/24 05:25 IMPRESSION: No acute cardiopulmonary abnormalities. Reading Location: [facility] D/C Instructions Discharge Activity: Return to Normal Activity Weight Bearing Status: Weight bearing as tolerated Call your doctor if you observe: Fever of 101 or Higher, Shortness of breath, Dizziness, Swelling in the ankles and Chest pain DC O2, CPAP, BIPAP Needs Home O2 Discharge instructions: No Meaningful Use Info Meaningful Use Meaningful Use Diagnoses (Choose all that apply): CHF CHF TRA/ARB ordered at discharge?: No Reason TRA/ARB not ordered?: Not indicated Documented LVEF (%): 60 Discharge Plan Admission Admit Date/Time: 12/18/24 18:18 Primary Reason for Your Visit: acute on chronic HFrEF Attending Provider: Brinda Duong Primary Care Provider: [facility] Consulting Providers: Jaya Patel Instructions Patient Instructions: ED Heart Failure, Congestive (CHF) Discharge Orders/Prescriptions Prescriptions: New furosemide 40 mg Tablet 40 mg PO BIDLX Qty: 60 1RF nitrofurantoin monohyd/m-cryst 100 mg Capsule 100 mg PO BID Qty: 8 0RF potassium chloride [K-Tab] 20 mEq tablet extended release 20 meq PO DAILY Qty: 30 2RF Continued warfarin [Jantoven] 4 MG tablet 4 mg PO SUTUWETHFRSA atorvastatin 40 MG tablet 80 mg PO DAILY isosorbide mononitrate 30 MG tablet 30 mg PO DAILY Patient Comments: Heart allopurinol 100 MG tablet 100 mg PO DAILYCM levothyroxine 25 MCG tablet 50 mcg PO DAILY pantoprazole 40 MG tablet 40 mg PO BID Patient Comments: stomach ferrous sulfate 325 MG tablet 325 mg PO DAILY metoprolol tartrate 25 MG tablet 25 mg PO DAILY gabapentin 300 MG capsule 300 mg PO DAILY tamsulosin 0.4 mg capsule 0.4 mg PO DAILY Patient Comments: Take 1 capsule by mouth once a day aspirin 81 mg capsule 81 mg PO DAILY finasteride 5 mg tablet 5 mg PO DAILY warfarin [Jantoven] 2 mg tablet 2 mg PO DAILY Patient Comments: AT BEDTIME ON MONDAYS ONLY hydrocodone-acetaminophen 5-325 mg tablet 1 tab PO Q4H PRN PRN (Reason: Pain) 2 Days Qty: 14 0RF Discontinued cefdinir 300 mg capsule 300 mg PO BID Qty: 10 0RF furosemide [Lasix] 40 mg tablet 40 mg PO DAILY Qty: 30 0RF Referrals / Follow Up: [facility] [Primary Care Provider[facility] - Within 1 Week Disposition Disposition (needs filled in before D/C Order can be placed): Home, Self Care Charges/Coding Visit Charges Inpatient E&M: 66728 Disch Hosp >30min
[2024-12-21 13:37] VITALS: BP 117/49; PULSE 84; RESP 16; O2SAT 94
--- NOTE | 2025-01-03 22:18 | PN_ITS ---
Subjective Subjective THIS IS A LATE ENTRY NOTE FOR 12/20/2024 Patient was seen and examined with his nurse by his bedside that day. He had no complaints and wanted to be discharged home. Therapy had not seen the patient yet. Patient asked to exercise patient for therapy to evaluate him before he could be discharged. This was to ensure that he was safe to be discharged home. Review of systems otherwise negative Objective Data Objective Data Vital Signs: Vital Signs Temp Pulse Resp BP Pulse Ox O2 Del Method 98.0 F 84 16 117/49 L 94 Room Air 12/21/24 09:47 12/21/24 13:37 12/21/24 13:37 12/21/24 13:37 12/21/24 13:37 12/21/24 13:37 Oxygen Delivery Method Room Air Weight: 219 lb 5.759 oz Body Mass Index (BMI) 31.4 Lab / Micro Data 12/21/24 05:57 12/21/24 05:57 Micro: Microbiology 12/18/24 16:10 Blood Culture (Wb) - Anticubital Right Blood Culture - Final No growth in 5 days. 12/18/24 14:55 Blood Culture (Wb) - Anticubital Right Blood Culture - Final No growth in 5 days. 12/20/24 21:10 Mucosa - Nasopharyngeal Respiratory Panel (PCR) - Final 12/18/24 16:10 Urine, Clean Catch Urine Culture - Final Enterobacter cloacae complex Pantoea spp 12/18/24 14:55 Mucosa - Nose SARS-CoV-2, Influenza & RSV (PCR) - Final Physical Exam Const alert, oriented x3 and no apparent distress Constitutional Narrative: Elderly male, class I obesity, fatigued and somewhat chronically ill-appearing, otherwise sitting back fairly comfortably in bed, answering questions appropriately, in no acute distress. General Appearance: cooperative and comfortable HEENT normocephalic, head/scalp atraumatic, hearing grossly normal bilaterally, nasal mucous membranes and turbinates normal and moist oral mucous membranes Eyes PERRL, EOMs intact bilaterally and conjunctivae normal Neck full ROM, supple and no JVD General: trachea midline Lymph Lymphatic: no lymphedema noted Chest inspection of chest normal Resp normal respiratory effort and no use of accessory muscles Resp Narrative: mildly diminished breath sounds bibasally, no wheezes or crackles. On room air. Cardio regular rate, regular rhythm, S1 normal heart sound, S2 normal heart sound, no murmurs and peripheral pulses 2+ throughout Cardio Narrative: A-fib, rate controlled. GI normal to inspection, nondistended, normoactive bowel sounds, soft to palpation, non-tender and non-distended Back/Spine normal ROM Extremity normal to inspection, full ROM, normal capillary refill, no clubbing, cyanosis or edema, no calf tenderness and no pedal edema General Extremity: no tenderness to palpation of joints or extremities Skin no rashes or lesions noted General Skin Exam: no breakdown Neuro oriented x3, moves all extremities, no focal motor deficits and no sensory deficits noted Sensorium / Orientation: awake Motor Exam: strength 5/5 throughout and general weakness Psych mental status grossly normal, thought process normal, cooperative and affect normal Appearance: appropriate Assessment & Plan Assessment/Plan (1) Acute exacerbation of chronic heart failure: (2) Acute UTI: PLAN: Plan #Acute on chronic heart failure in the setting of failing mechanical aortic valve * Admitted with complaint of near syncope and shortness of breath. He has mechanical aortic valve and had been told by his airveyor operator at [facility] that the valve was failing and he will require a new surgical valve replacement soon. * Chest x-ray showed vascular congestion and he also had elevated BNP on admission. Being diuresed with IV Lasix 40 mg twice daily. * Breathing treatments bronchodilators. Titrate oxygen to maintain saturation above 90%. * #Mechanical aortic valve: On Coumadin. INR was 3.9 on admission so Coumadin on hold. Will monitor INR with a goal of 2.5-3.5. #UTI: * Urinalysis showed 1+ bacteria with positive nitrites and 500 leukocyte esterase. On IV ceftriaxone. 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 #History of CAD s/p stents: On aspirin and high intensity statin as well as metoprolol #Hypertension: On metoprolol #Hypothyroidism: On Synthroid #GERD: On PPI #BPH with obstructive symptoms: On finasteride and Flomax #History of peripheral neuropathy: On gabapentin #History of gout: On allopurinol DVT prophylaxis: on coumadin. INR supratherapeutic, so coumadin on hold still Disposition: * awaiting PT/OT evaluation then can be discharged based PT/OT recommendation. * Patient counseled that in light of hs advanced age and comorbidities, it is prudent at PT.OT evaluates him prior to dc to ensure we get their rec's to help him have a safe discharge home. Charges/Coding Visit Charges Inpatient E&M: 22911 Subs Hosp L2
== END 2024-12-21 14:09 | disposition home or self-care (01) ==
LOC: ED 18:09 → PCU 19:58
PROVIDERS: Admitting Provider Hospitalist; Emergency Provider Emergency Medicine; Visit Provider Student in an Organized Health Care Education/Training Program
DX: I11.0 Hypertensive heart disease with heart failure (principal); I50.33 Acute on chronic diastolic (congestive) heart failure; I48.20 Chronic atrial fibrillation, unspecified; K21.9 Gastro-esophageal reflux disease without esophagitis; I25.10 Atherosclerotic heart disease of native coronary artery without angina pectoris; E66.811 Obesity, class 1; E03.9 Hypothyroidism, unspecified; Z79.890 Hormone replacement therapy; E78.00 Pure hypercholesterolemia, unspecified; N39.0 Urinary tract infection, site not specified; Z68.31 Body mass index [BMI] 31.0-31.9, adult; R79.1 Abnormal coagulation profile; Z87.891 Personal history of nicotine dependence; R79.89 Other specified abnormal findings of blood chemistry; Z79.899 Other long term (current) drug therapy; R42 Dizziness and giddiness; G62.9 Polyneuropathy, unspecified; Z79.01 Long term (current) use of anticoagulants; N40.1 Benign prostatic hyperplasia with lower urinary tract symptoms; N13.8 Other obstructive and reflux uropathy; Z95.2 Presence of prosthetic heart valve; R55 Syncope and collapse; R06.02 Shortness of breath; Z79.82 Long term (current) use of aspirin; M10.9 Gout, unspecified; B96.89 Other specified bacterial agents as the cause of diseases classified elsewhere
CPT/HCPCS: 36415; 70450; 71045; 80048; 81001; 83605; 83880; 84484; 85025; 85027; 85610; 87040; 87077; 87086; 87088; 87186; 87631; 87633; 93005; 93306; 96365; 96366; 96375; 96376; 97161; 97165; 97802; 99221; 99285; Q9957; A4216; C8929; G0378; J1938

== ENCOUNTER 2025-01-07 19:32 | Observation (INO) | payer OTHER, SELFPAY ==
[2025-01-07 19:33] VITALS: BP 193/65; PULSE 85; RESP 18; TEMP 36.1; O2SAT 98
[2025-01-07 19:40] VITALS: BMI 31.8
--- NOTE | 2025-01-07 20:25 | CT_ITS ---
PROCEDURE: CT CHEST, ABD, PELVIS WO CONT 01/07/2025 REASON FOR EXAM: RIGHT SIDED TRAUMA TECHNIQUE: Chest, abdomen and pelvis CT without contrast. Multiplanar 2D reconstructions were performed. One or more dose reduction techniques were used (e.g., Automated exposure control, adjustment of the mA and/or kV according to patient size, use of iterative reconstruction technique. Noncontrast technique limits evaluation of the vasculature and abdominopelvic viscera. RADIATION DOSE SUMMARY: DLP: 2363.94 mGycm COMPARISON: Abdominal CT 02/13/2024. CT chest 05/18/2023. FINDINGS: Lower neck: Enlarged heterogeneous nodular thyroid gland. Lungs/pleura: Trace bilateral pleural effusions with adjacent passive atelectasis. No confluence airspace consolidation or findings of significant pulmonary edema. No pneumothorax. Central airways are patent. Mediastinum: Unremarkable. No mediastinal hematoma. No lymphadenopathy. Heart: Cardiomegaly. Aortic valve prosthesis. Moderate coronary artery calcifications. No pericardial effusion. Aorta: Normal in course and caliber. Mild-moderate atherosclerotic disease. Liver: Unremarkable. Gallbladder: Surgically absent. Spleen: Unremarkable. Pancreas: Within normal limits. Adrenals: Small 1.5 cm right adrenal benign fatty adenoma, unchanged. Kidneys: Atrophic kidneys. No urolithiasis or hydronephrosis. Bladder: Unremarkable. Reproductive Organs: Unremarkable. Bowel: Small hiatal hernia. No evidence of bowel obstruction or active inflammatory process. Normal appendix. Mild distal colonic diverticulosis without active diverticulitis. Peritoneum/Retroperitoneum: No free fluid or air. No lymphadenopathy. Bones: No acute fracture or dislocation. Chronic right lower rib fracture deformities. 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 Chronic L4 compression fracture deformity with kyphoplasty bone cement. Diffuse osteopenia. No aggressive osseous lytic or blastic lesion. Prior ORIF of the imaged bilateral proximal femurs, with no evidence for hardware loosening or failure. Sternotomy wires. CT/CT Chest, Abd, Pelvis WO Cont IMPRESSION: 1. No acute traumatic findings within the chest, abdomen or pelvis. 2. Multiple non-acute ancillary findings, as described above. Reading Location: [facility]
[2025-01-07 21:09] LABS: Hematocrit 36.5 % (40-54); Hemoglobin 11.6 g/dL (13.0-16.5); Immature Granulocytes Count 0.030 X10^3/uL (0.0-0.0); Mean Corp Hgb Conc 31.8 g/dL (32-36); Mean Corpuscular Volume 91.5 fL (80-94); Mean Platelet Vol. 10.1 fl (6.2-12.0); NRBC Flagged by Analyzer 0 % (0-5); Platelet Count 242 K/mm3 (150-450); RBC Distribution Width CV 16.3 % (11.6-14.6); RBC Distribution Width SD 54.9 fl (35.1-43.9); Red Blood Count 3.99 M/mm3 (4.6-6.2); White Blood Count 7.1 K/mm3 (4.4-11.0)
[2025-01-07 21:32] VITALS: BP 141/56; PULSE 100; RESP 16; O2SAT 95
[2025-01-07 21:57] LABS: Prothrombin Time (Protime)PT. 32.4 SECONDS (11.7-14.9)
[2025-01-07 22:03] LABS: AST(SGOT) 14 U/L (<=37); Alanine Aminotransfer ALT/SGPT 15 U/L (<=46); Albumin, Serum 3.2 g/dL (3.4-4.8); Alkaline Phosphatase 226 U/L (40-129); Anion Gap 9 (5-15); BUN 11 mg/dL (4-19); BUN/Creat Ratio 13.4 RATIO (10-20); Calcium,Total 8.5 mg/dL (7.6-11.0); Carbon Dioxide 23.5 mmol/L (21.0-32.0); Chloride 104 mmol/L (98-108); Estimated Creatinine Clearance 89.04 ml/min (50-250); Globulin 3.0 g/dL (2.2-4.2); Glucose 103 mg/dL (70-99); Potassium 5.1 mmol/L (3.3-5.1)
--- NOTE | 2025-01-07 22:30 | ED.VIS.GI ---
HPI HPI - GI History of Present Illness Chief Complaint: Abd Pain Informant: patient and family Narrative Narrative: Patient is a 79-year-old male with history of aortic valve replacement (mechanical) on chronic Coumadin therapy, atrial fibrillation, coronary disease and hypertension presenting for worsening right sided abdominal pain after mechanical fall 4 days ago. Patient states he fell sideways after missing some steps when transition from bricks and he struck his right flank area. Initially EMS was contacted for lift assist and patient declined transfer to the emergency room. Patient denies hitting his head. Denies any associate loss of consciousness. He has had worsening pain and came in for further evaluation because the pain has gotten so bad. No other complaints or concerns at this time. Denies any associated numbness or tingling. Pain is worse with movement. States it is sharp and mostly in his right lower quadrant [facility] Medical History Acute UTI Weakness Wears hearing aid Thyroid disease High cholesterol Excessive bleeding Back pain Migraine headache Stroke/cerebrovascular accident History of IBS Gastric reflux Former smoker Sleep apnea Shortness of breath on exertion Leg cramps History of pain when walking History of edema History of echocardiogram History of stress test Cardiology follow-up encounter FH: bilateral hip replacements Home Medications ?Medication ?Instructions ?Recorded ?Last Taken ?Type warfarin 4 mg tablet (Jantoven) 4 mg PO SUTUWETHFRSA blood thinner 04/03/16 01/08/23 History allopurinol 100 mg tablet 100 mg PO DAILYCM gout 04/04/16 12/18/24 History atorvastatin 40 mg tablet 80 mg PO DAILY cholesterol 04/04/16 12/18/24 History ferrous sulfate 325 mg (65 mg 325 mg PO DAILY supplement 04/04/16 12/18/24 History iron) tablet isosorbide mononitrate 30 mg 30 mg PO DAILY chest pain 04/04/16 12/18/24 History tablet,extended release 24 hr levothyroxine 25 mcg tablet 50 mcg PO DAILY thyroid 04/04/16 12/18/24 History metoprolol tartrate 25 mg tablet 25 mg PO DAILY blood pressure 04/04/16 12/18/24 History pantoprazole 40 mg tablet,delayed 40 mg PO BID reflux 04/04/16 12/18/24 History release gabapentin 300 mg capsule 300 mg PO DAILY nerve pain 01/10/20 12/18/24 History tamsulosin 0.4 mg capsule 0.4 mg PO DAILY prostate 07/09/22 12/18/24 History finasteride 5 mg tablet 5 mg PO DAILY prostate 05/18/23 12/18/24 History warfarin 2 mg tablet (Jantoven) 2 mg PO DAILY blood thinner 05/19/23 12/18/24 History hydrocodone-acetaminophen 5-325mg 1 tab PO Q4H PRN PRN Pain 2 days 02/13/24 Unknown Rx 5mg-325mg #14 TABLETS furosemide 40 mg tablet 40 mg PO BIDLX #60 tabs 12/21/24 Unknown Rx potassium chloride 20 mEq 20 meq PO DAILY #30 tabs 12/21/24 Unknown Rx tablet,extended release (K-Tab) Allergy/AdvReac Type Severity Reaction Status Date / Time hydrocodone bitartrate (From Allergy Other Verified 01/07/25 19:33 Vicodin) Surgical History History of total right hip replacement History of total left hip replacement History of heart surgery History of cardiac catheterization History of coronary artery stent placement Hx laparoscopic cholecystectomy Hx of aortic valve replacement History of open heart surgery Social History household members: spouse Smoking Status: Former smoker ROS ROS ED Constitutional Constitutional ED: Denies chills or fever(s) Cardiovascular Cardiovascular: Denies chest pain Respiratory/Chest Respiratory/Chest: Denies cough or dyspnea Gastrointestinal Gastrointestinal: Reports abdominal pain; Denies diarrhea, nausea or vomiting Musculoskeletal Musculoskeletal: Reports arthralgias, back pain and myalgias Integumentary Denies Abrasions or rash Neurologic Neurologic: Reports weakness; Denies headache(s) or paresthesias Hematologic/Lymphatic Hematologic/Lymphatic: Reports easy bleeding, easy bruising and other Details: On Coumadin EXAM Physical Exam Const Vital Signs: 01/07/25 19:33 01/07/25 21:32 Temperature 97 F L Temperature Source Temporal Pulse Rate 85 100 Respiratory Rate 18 16 Blood Pressure 193/65 H 141/56 H Blood Pressure Mean 107 84 Pulse Ox 98 95 Oxygen Delivery Method Room Air Room Air Positive well nourished and well developed General Appearance ED: well developed and NAD HEENT Reports TM's clear and moist mucous membranes normocephalic and atraumatic Tympanic Membrane ED: Yes TM's clear Eyes PERRL Neck supple Neck Narrative: Normal range of motion of the neck General: Negative for tenderness Chest Wall Chest Narrative: No chest wall crepitus. No deformity of the chest. Mild tenderness over the right anterior lower ribs Resp normal respiratory effort and clear to auscultation bilaterally Cardio regular rate and regular rhythm Cardio Narrative: Clicking murmur consistent with prior mechanical valve GI GI Narrative: Tenderness right flank, negative Alvarez sign. No pain McBurney's point. Back/Spine no CVA tenderness Extremity General Extremety ED: Yes edema General Extremity: edema Neuro moves all extremities Sensorium / Orientation: alert, oriented to person, oriented to place and oriented to time Motor Exam: general weakness Psych mental status grossly normal and thought process normal Skin Skin Narrative: Hematoma to the left flank. No skin tears appreciated. MDM MDM MDM Narrative Medical decision making narrative: Patient evaluated for right-sided abdominal pain and difficulty with mobility this to worsen over the past 4 days since a fall. He is chronically anticoagulated on Coumadin. Differential includes rib fracture, pelvic fracture, symptomatic anemia, cholecystitis, renal colic and retroperitoneal hemorrhage as well as muscle skeletal pain and debility. Lab work shows a mild anemia the hemoglobin 11.6 which at the patient's baseline. He is therapeutic on his INR at 3.1. CMP largely unremarkable. His chronically elevated bilirubin of 1.[address] of the chest abdomen pelvis does not show any acute traumatic findings. Patient is given IV morphine and Zofran for symptom control in the emergency room. Patient is reevaluated and is slightly more comfortable still having a lot of pain. Does not feel comfortable going home. Offered admission for further pain control PT OT evaluation. He would prefer this. Case is discussed with hospitalist, Dr. Fox. Patient will be admitted for pain control. Lab Data Attestation: I reviewed the patient's lab results. Labs: Laboratory Results - last 24 hr 01/07/25 20:54 WBC 7.1 RBC 3.99 L Hgb 11.6 L Hct 36.5 L MCV 91.5 MCH 29.1 MCHC 31.8 L RDW Std Deviation 54.9 H RDW Coeff of Clement 16.3 H Plt Count 242 MPV 10.1 Immature Gran % (Auto) 0.400 Neut % (Auto) 77.2 H Lymph % (Auto) 12.4 L Grant % (Auto) 5.9 Eos % (Auto) 3.5 Baso % (Auto) 0.6 Absolute Neuts (auto) 5.5 Absolute Lymphs (auto) 0.88 Nucleated RBC % 0 PT 32.4 H INR 3.1 Sodium 136 Potassium 5.1 Chloride 104 Carbon Dioxide 23.5 Anion Gap 9 BUN 11 Creatinine 0.79 Estim Creat Clear Calc 89.04 Est GFR (MDRD) Non-Af 91 BUN/Creatinine Ratio 13.4 Glucose 103 H Calcium 8.5 Total Bilirubin 1.42 H AST 14 ALT 15 Alkaline Phosphatase 226 H Total Protein 6.2 Albumin 3.2 L Globulin 3.0 Albumin/Globulin Ratio 1.1 Radiography Diagnostic Testing: Clinical Impression(s) from Imaging Studies Chest/Abdomen/Pelvis CT 01/07/25 20:25 IMPRESSION: 1. No acute traumatic findings within the chest, abdomen or pelvis. 2. Multiple non-acute ancillary findings, as described above. Reading Location: [facility] Rhythm Strip Rhythm Strip: A-fib Rate: 75 Ectopy: None EKG Initial EKG: Attestation: I personally reviewed and interpreted this EKG as follows: Interpretation: Atrial Fibrillation Comments: Atrial fibrillation at a rate of 75 bpm Normal axis Normal intervals Normal ST segment Management Discussion w/another healthcare provider: Hospitalist Discharge Plan Triage Chief Complaint: Abd Pain ED Provider: Vivian Can Dx/Rx/DC Orders Clinical Impression: Acute right flank pain, Aortic valve vegetation, Contusion of right flank, Chronic anticoagulation Prescriptions: No Action warfarin [Jantoven] 4 MG tablet 4 mg PO SUTUWETHFRSA atorvastatin 40 MG tablet 80 mg PO DAILY isosorbide mononitrate 30 MG tablet 30 mg PO DAILY Patient Comments: Heart allopurinol 100 MG tablet 100 mg PO DAILYCM levothyroxine 25 MCG tablet 50 mcg PO DAILY pantoprazole 40 MG tablet 40 mg PO BID Patient Comments: stomach ferrous sulfate 325 MG tablet 325 mg PO DAILY metoprolol tartrate 25 MG tablet 25 mg PO DAILY gabapentin 300 MG capsule 300 mg PO DAILY tamsulosin 0.4 mg capsule 0.4 mg PO DAILY Patient Comments: Take 1 capsule by mouth once a day finasteride 5 mg tablet 5 mg PO DAILY warfarin [Jantoven] 2 mg tablet 2 mg PO DAILY Patient Comments: AT BEDTIME ON MONDAYS ONLY hydrocodone-acetaminophen 5-325 mg tablet 1 tab PO Q4H PRN PRN (Reason: Pain) 2 Days Qty: 14 0RF furosemide 40 mg Tablet 40 mg PO BIDLX Qty: 60 1RF potassium chloride [K-Tab] 20 mEq tablet extended release 20 meq PO DAILY Qty: 30 2RF [facility] [Primary Care Provider] - Print Language: Tongan Disposition Disposition: Acute Care Hospital [facility]
--- NOTE | 2025-01-07 22:38 | HP.PCM.HOS_ITS ---
[facility] - General General Date of Admission: 01/07/25 Date of Service: 01/07/25 Chief Complaint: Right Flank Pain and Bruising after Fall 4 days Ago. HPI Narrative EDDIE JIMENEZ, is a 79 M with a past medical history of essential hypertension; on metoprolol and furosemide BID, hyperlipidemia; on atorvastatin, hypothyroidism; on levothyroxine, former tobacco abuse, obesity; with BMI of 31.9 this admission, JONNA; off CPAP since weight loss, history of atrial fibrillation and mechanical AVR; on warfarin, CAD; s/p stent (~2001) on ISMO, history of CVA; without residual deficit (2006), EMILE; on ferrous sulfate, peripheral neuropathy; on gabapentin, history of migraine headaches, BPH; on finasteride and tamsulosin, GERD; on pantoprazole BID, history of IBS, history of laparoscopic cholecystectomy, history of gout; on allopurinol, OA; s/p bilateral THR's plus chronic back pain on hydrocodone-acetaminophen q. 4 hours prn and recent admission here from December 18, 2024 to December 21, 2024 for treatment of AE CHF; with patient informed by [facility] his AVR was failing complicated by UTI with very recent fall onto his Right abdomen who presents to [facility] ER complaining of Right flank pain and bruising. Mr. Jimenez reports his symptoms began approximately 4 days ago after he fell sideways after missing some steps causing him to strike his Right lower abdomen/flank area. Initially EMS was contacted for lift assist with patient declining transfer to ER at that time. He denies LOC or significant head trauma with his fall. However, he does admit to worsening sharp, Right-sided abdominal pain that is made worse with movement causing him to feel unsafe to return home so he made a request to the ER physician to stay. He admits to generalized weakness but he denies related fever, chills, nausea, vomiting, diarrhea, constipation, chest pain, palpitations, heart racing, headache, paresthesias, dysuria or hematuria. In the ER he underwent a CT scan of the chest/abdomen/pelvis that revealed no acute traumatic findings within the chest, abdomen or pelvis with chronic Right lower lobe fracture deformities and multilevel degenerative changes in the spine with DISH with chronic L4 compression fracture deformity with kyphoplasty bone cement with diffuse osteopenia with otherwise unremarkable laboratory studies and vital signs in addition to a therapeutic INR of 3.1 present on admission. He was then diagnosed with Uncontrolled Pain after recent Fall with Generalized Weakness with patient then admitted to the general medical floor under observation status for a stay that is expected to be less than 2 midnights. [facility] Medical History Acute UTI Weakness Wears hearing aid Thyroid disease High cholesterol Excessive bleeding Back pain Migraine headache Stroke/cerebrovascular accident History of IBS Gastric reflux Former smoker Sleep apnea Shortness of breath on exertion Leg cramps History of pain when walking History of edema History of echocardiogram History of stress test Cardiology follow-up encounter FH: bilateral hip replacements Home Medications ?Medication ?Instructions ?Recorded ?Last Taken ?Type warfarin 4 mg tablet (Jantoven) 4 mg PO SUTUWETHFRSA b lood thinner 04/03/16 01/08/23 History allopurinol 100 mg tablet 100 mg PO DAILYCM gout 04/0412/18/24 History atorvastatin 40 mg tablet 80 mg PO DAILY cholesterol 1 06/05/15 12/18/24 History ferrous sulfate 325 mg (65 mg 325 mg PO DAILY suppleme nt 04/04/16 12/18/24 History iron) tablet isosorbide mononitrate 30 mg 30 mg PO DAILY chest pain 04/04/16 12/18/24 History tablet,extended release 24 hr levothyroxine 25 mcg tablet 50 mcg PO DAILY thyroid 12/18/24 History metoprolol tartrate 25 mg tablet 25 mg PO DAILY blood pressure 04/04/16 12/18/24 History pantoprazole 40 mg tablet,delayed 40 mg PO BID reflux 04/04/16 12/18/24 History release gabapentin 300 mg capsule 300 mg PO DAILY nerve pain 0 01/10/20 12/18/24 History tamsulosin 0.4 mg capsule 0.4 mg PO DAILY prostate 03/2312/18/24 History finasteride 5 mg tablet 5 mg PO DAILY prostate 05/1812/18/24 History warfarin 2 mg tablet (Jantoven) 2 mg PO DAILY blood th inner 05/19/23 12/18/24 History hydrocodone-acetaminophen 5-325mg 1 tab PO Q4H PRN PRN Pain 2 days 02/13/24 Unknown Rx 5mg-325mg #14 TABLETS furosemide 40 mg tablet 40 mg PO BIDLX #60 tabs 11/30 07/23 Unknown Rx potassium chloride 20 mEq 20 meq PO DAILY #30 tabs Unknown Rx tablet,extended release (K-Tab) Allergy/AdvReac Type Severity Reaction Status Date / Time hydrocodone bitartrate (From Allergy Other Verified 01/07/25 19:33 Vicodin) Surgical History History of total right hip replacement History of total left hip replacement History of heart surgery History of cardiac catheterization History of coronary artery stent placement Hx laparoscopic cholecystectomy Hx of aortic valve replacement History of open heart surgery Social History household members: spouse Smoking Status: Former smoker ROS ROS Narrative Review of Systems: Constitutional: Patient denies fever or chills. Eyes: Patient denies changes in vision or discharge from eyes. ENT: Patient denies runny nose, sore throat or ear pain. Resp: Patient denies SOB or cough. CV: Patient denies chest pain, palpitations or heart racing. GI: Patient admits to intermittent, sharp RLQ abdominal pain made worse with movement as per HPI. : Patient denies dysuria or hematuria. MSK: Patient admits to generalized weakness since fall as per HPI. Skin: Patient admits to bruising in RLQ but he denies rash. Psych: Patient denies symptoms of uncontrolled depression or anxiety. Neuro: Patient denies headache, paresthesias or focal neurologic weakness. Allergy: Patient denies lip swelling, tongue swelling or urticaria. Hematology: Patient admits to easy bleeding and easy bruisability on warfarin. Endocrinology: Patient denies polyuria, polydipsia, polyphagia or heat/cold intolerance. 14 point ROS otherwise negative except for positives noted above in HPI. Vital Signs Vital Signs Vital Signs: 01/07/25 19:33 01/07/25 21:32 Temperature 97 F L Temperature Source Temporal Pulse Rate 85 100 Respiratory Rate 18 16 Blood Pressure 193/65 H 141/56 H Blood Pressure Mean 107 84 Pulse Ox 98 95 Oxygen Delivery Method Room Air Room Air Weight Weight: 222 lb 0.088 oz Body Mass Index (BMI) 31.8 Physical Exam Const alert, oriented x3 and no apparent distress Constitutional Narrative: Obese but nontoxic in appearance. General Appearance: cooperative HEENT normocephalic, head/scalp atraumatic, hearing grossly normal bilaterally and moist oral mucous membranes Eyes PERRL, EOMs intact bilaterally and conjunctivae normal Neck no lymphadenopathy, supple and no JVD Resp normal respiratory effort, no retractions, no use of accessory muscles and clear to auscultation bilaterally Resp Narrative: Mild TTP over Right lower chest wall. Cardio regular rate and regular rhythm Cardio Narrative: Clicking murmur indicative of mechanical aortic valve. GI soft to palpation and non-distended GI Narrative: TTP over Right flank with negative Alvarez' signs and no pain at McBurney's point. Extremity full ROM Extremity Narrative: Trace edema noted in LE's. Skin Skin Narrative: Patient has hematoma over Left flank. Neuro oriented x3, CN's II-XII intact bilaterally, moves all extremities and no focal motor deficits Sensorium / Orientation: awake, alert, oriented to person, oriented to place and oriented to time Speech: speech normal Psych affect normal Results Medical Records Data Attestation: I reviewed the patient's medical records Lab / Micro Data Attestation: I reviewed the patient's lab results. 01/07/25 20:54 01/07/25 20:54 Labs: Laboratory Results - last 24 hr 01/07/25 20:54: WBC 7.1, RBC 3.99 L, Hgb 11.6 L, Hct 36.5 L, MCV 91.5, MCH 29.1, MCHC 31.8 L, RDW Std Deviation 54.9 H, RDW Coeff of Clement 16.3 H, Plt Count 242, MPV 10.1, Immature Gran % (Auto) 0.400, Neut % (Auto) 77.2 H, Lymph % (Auto) 12.4 L, [place] % (Auto) 5.9, Eos % (Auto) 3.5, Baso % (Auto) 0.6, Absolute Neuts (auto) 5.5, Absolute Lymphs (auto) 0.88, Nucleated RBC % 0, PT 32.4 H, INR 3.1, Sodium 136, Potassium 5.1, Chloride 104, Carbon Dioxide 23.5, Anion Gap 9, BUN 11, Creatinine 0.79, Estim Creat Clear Calc 89.04, Est GFR (MDRD) Non-Af 91, BUN/Creatinine Ratio 13.4, Glucose 103 H, Calcium 8.5, Total Bilirubin 1.42 H, AST 14, ALT 15, Alkaline Phosphatase 226 H, Total Protein 6.2, Albumin 3.2 L, Globulin 3.0, Albumin/Globulin Ratio 1.1 Imaging Radiology Impression Chest/Abdomen/Pelvis CT 01/07/25 20:25 IMPRESSION: 1. No acute traumatic findings within the chest, abdomen or pelvis. 2. Multiple non-acute ancillary findings, as described above. Reading Location: [facility] Assessment & Plan Assessment/Plan (1) Uncontrolled pain: (2) Fall: QUALIFIERS: Encounter type: sequela Qualified Code(s): W19.XXXS - Unspecified fall, sequela (3) Generalized weakness: (4) Contusion of right flank: (5) Obesity (BMI 30.0-34.9): (6) Osteoarthritis: QUALIFIERS: Osteoarthritis location: unspecified site O steoarthritis type: unspecified Qualified Code(s): M19.90 - Unspecified osteoarthritis, unspecified site (7) Hx of aortic valve replacement, mechanical: (8) Chronic anticoagulation: PLAN: Plan 1. Uncontrolled Pain after recent Fall with Generalized Weakness - Admit to general medical floor under observation status. Give acetaminophen prn for [id number] (level 1-5/10) pain or fever. Give morphine IV prn for severe (level 6-10/10) pain. Finally, we will consult PT/OT and Case Management to see this patient on-rounds in the AM for further recommendations with help appreciated in advance. 2. History of atrial fibrillation and mechanical AVR; on warfarin complicating #1 - Continue warfarin as before and check daily PT/INR to follow trend. 3. Obesity; with BMI of 31.9 this admission adding to the burden of disease outlined from #1 - #2 - Weight loss will be recommended. Check TSH. This complicates his case and may hamper recovery. 4. OA; s/p bilateral THR's plus chronic back pain on hydrocodone-acetaminophen q. 4 hours prn adding to the medical complexity of #1 - #3 - Noted. 5. Recent admission here from December 18, 2024 to December 21, 2024 for treatment of AE CHF; with patient informed by [facility] his AVR was failing complicated by UTI - Noted. 6. Essential hypertension; on metoprolol and furosemide BID - Maintain current therapy plus give hydralazine IV prn for systolic blood pressure > 160 mmHg. 7. Hyperlipidemia; on atorvastatin - Resume statin. 8. Hypothyroidism; on levothyroxine - Continue levothyroxine and check TSH. 9. Former tobacco abuse - Noted. 10. JONNA; off CPAP since weight loss - Noted. 11. CAD; s/p stent (~2001) on ISMO - Maintain on ISMO as previous. 12. History of CVA; without residual deficit (2006) - Stable. 13. EMILE; on ferrous sulfate - Stable with hemoglobin of 11.6 g/dL and MCV of 91.5 fL present on admission. 14. Peripheral neuropathy; on gabapentin - Continue present treatment. 15. History of migraine headaches - Stable with no complaints related to this issue at this time. 16. BPH; on finasteride and tamsulosin - Maintain current regimen. 17. GERD; on pantoprazole BID - Continue PPI. 18. History of IBS - Stable. 19. History of laparoscopic cholecystectomy - Noted. 20. History of gout; on allopurinol - Chronic and stable with no evidence of acute flare. Resume allopurinol as before. 21. DVT prophylaxis - Patient on warfarin for #2 which will be continued with therapeutic INR of 3.1 present on admission. Total time: Approximately (but not less than) 70 minutes. Charges/Coding Visit Charges OBSV E&M: 25417 Observ/hosp same date L2
[2025-01-07 22:46] VITALS: BP 122/55; PULSE 84; RESP 18; TEMP 36.7; O2SAT 93
[2025-01-07 23:00] VITALS: PULSE 75; RESP 16; O2SAT 94
--- OUTSIDE RECORDS SUMMARY | 2025-01-07 23:30 | XMS RPT_ITS | CCD ---
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 Imatinib August 2023, discontinued secondary to GI upset and fatigue Dasatinib October 2023, discontinued for depression, suicidal ideation Nilotinib, currently tolerated Hypothyroidism GERD Osteoarthritis Comment: Bilateral hip replacements Obesity Comment: BMI 30.6 kg/m? Surgical History PAST SURGICAL HISTORY Procedure Laterality Date RPLCMT AORTIC VALVE OPN W/STENTLESS TISSUE VALVE 2001 Family History Sudden Cardiac - No Premature CAD - No Aortic Disease - No Cardiomyopathy - No Social History Occupation - retired [employer] - [place], [place] Marital Status - Tobacco Use -remote alcohol and pipe smoking Alcohol Use -none Illicit Drug Use -none Allergies/ADRs ALLERGIES Allergen Reactions Vicodin [Hydrocodon* Shortness of Breath Current Medications Current Outpatient Medications Medication Sig levothyroxine sodium(SYNTHROID 25 MCG TAB) Take one(1) tablet daily.for 2 weeks and then 2 tabas daily lisinopril-hydrochloro thiazide 10-12.5 mg ORAL Tab Take one(1) tablet daily. TOPROL XL 100 MG 24 HR TAB Take one(1) tablet daily. COUMADIN 4 MG TAB Take one (1) tablet every day. COMPOUNDED PRESCRIPTION Cholesterol Med - Pt can't remember the name of it Physical Exam Vital Signs: BP 145/70 (BP S (more content not included)... Normal [facility] CRP SerPl-mCncon 12-31-2024 CRP [Mass/Vol] 0.3 mg/dL Normal <0.9 [facility] Comment on above: Order Comment: Speci men Type: BLOOD SPECIMENOrdering Facility: [facility] Address: [address] [place] [address] Performed By: #### 1 [id number], [id number] ####[facility] LABCLIA [id number] [place] [address] [place] CRP [Mass/Vol]on 12-31-2024 Interpretation and review of laboratory results Normal [facility] CT BRAIN WO IVCONon 01-01-20 CT BRAIN WO IVCON * * *Final Report* * * DATE OF EXAM: Dec 31 2024 12:50PM [facility] [place] [place] BRAIN WO IVCON / PROCEDURE REASON: multiple diagnoses * * * * Physician Interpretation * * * * EXAMINATION: CT BRAIN WO IVCON CLINICAL HISTORY: Encounter for preprocedural cardiovascular examination S/P aortic valve replacement S/P CABG (coronary artery bypass graft) Hypertension, unspecified type. TECHNIQUE: Serial axial images without IV contrast were obtained from the vertex to the foramen magnum. MQ: CTBWO_3 CT Radiation dose: Integrated Dose-Length Product (DLP) for this visit = 716 mGy*cm CT Dose Reduction Employed: No dose reduction techniques were required COMPARISON: None. RESULT: Localizer images: No additional findings. Post-operative change: None. Acute change: No evidence of an acute infarct or other acute parenchymal process. Hemorrhage: No evidence of acute intracranial hemorrhage. ECASS hemorrhagic transformation score: Not Applicable Mass Lesion / Mass Effect: There is no evidence of an intracranial mass or extraaxial fluid collection. No significant mass effect. Chronic change: Scattered patchy foci of low attenuation are present within the supratentorial white matter, a nonspecific finding that most commonly represents mild small vessel disease. Remote left MCA distribution infarct. Atherosclerotic calcification of bilateral carotid siphons and V4 segments. Parenchyma: There is mild generalized volume loss. The brain parenchyma is otherwise within normal limits for age. Ventricles: Ventricular enlargement concordant with the degree of parenchymal volume loss including asymmetric left lateral ventricle horn enlargement. Paranasal sinuses and skull base: The visualized paranasal sinuses are grossly clear. Bilateral pseudophakia. Multiple bilateral intraparotid ovoid soft tissue nodules, measuring up to 1.1 x 0.9 cm on the right (4:4), which may represent intraparotid lymph nodes. The skull base and imaged soft tissues are otherwise unremarkable. IMPRESSION: No acute intracranial abnormality. Chronic microvascular ischemic changes. Remote left MCA infarct. Butadiene Convertor Operator: PSCB Transcribe Date/Time: Dec 31 2024 1:11P Dictated by : GASTON TORRES MD This examination was interpreted and the report reviewed and electronically signed by: DIEGO PAZ MD on Dec 31 2024 1:17PM EST [id number] Normal [facility] CT Head WO contraston 2024 IMPRESSION: No acute intracranial abnormality. Chronic microvascular ischemic changes. Remote left MCA infarct. Butadiene Convertor Operator: BRETT Transcribe Date/Time: Dec 31 2024 1:11P Dictated by : GASTON TORRES MD This examination was interpreted and the report reviewed and electronically signed by: DIEGO PAZ MD on Dec 31 2024 1:17PM [facility] DIVISION OF RADIOLOGY * * *Final Report* * * DATE OF EXAM: Dec 31 2024 12:50PM [facility] [place] [place] BRAIN WO IVCON / PROCEDURE REASON: multiple diagnoses * * * * Physician Interpretation * * * * EXAMINATION: CT BRAIN WO IVCON CLINICAL HISTORY: Encounter for preprocedural cardiovascular examination S/P aortic valve replacement S/P CABG (coronary artery bypass graft) Hypertension, unspecified type. TECHNIQUE: Serial axial images without IV contrast were obtained from the vertex to the foramen magnum. MQ: CTBWO_3 CT Radiation dose: Integrated Dose-Length Product (DLP) for this visit = 716 mGy*cm CT Dose Reduction Employed: No dose reduction techniques were required COMPARISON: None. RESULT: Localizer images: No additional findings. Post-operative change: None. Acute change: No evidence of an acute infarct or other acute parenchymal process. Hemorrhage: No evidence of acute intracranial hemorrhage. ECASS hemorrhagic transformation score: Not Applicable Mass Lesion / Mass Effect: There is no evidence of an intracranial mass or extraaxial fluid collection. No significant mass effect. Chronic change: Scattered patchy foci of low attenuation are present within the supratentorial white matter, a nonspecific finding that most commonly represents mild small vessel disease. Remote left MCA distribution infarct. Atherosclerotic calcification of bilateral carotid siphons and V4 segments. Parenchyma: There is mild generalized volume loss. The brain parenchyma is otherwise within normal limits for age. Ventricles: Ventricular enlargement concordant with the degree of parenchymal volume loss including asymmetric left lateral ventricle horn enlargement. Paranasal sinuses and skull base: The visualized paranasal sinuses are grossly clear. Bilateral pseudophakia. Multiple bilateral intraparotid ovoid soft tissue nodules, measuring up to 1.1 x 0.9 cm on the right (4:4), which may represent intraparotid lymph nodes. The skull base and imaged soft tissues are otherwise unremarkable. DIVISION OF RADIOLOGY Provider, [facility] - 12/31/2024 * * *Final Report* * * DATE OF EXAM: Dec 31 2024 12:50PM [facility] [place] [place] BRAIN WO IVCON / PROCEDURE REASON: multiple diagnoses * * * * Physician Interpretation * * * * EXAMINATION: CT BRAIN WO IVCON CLINICAL HISTORY: Encounter for preprocedural cardiovascular examination S/P aortic valve replacement S/P CABG (coronary artery bypass graft) Hypertension, unspecified type. TECHNIQUE: Serial axial images without IV contrast were obtained from the vertex to the foramen magnum. MQ: CTBWO_3 CT Radiation dose: Integrated Dose-Length Product (DLP) for this visit = 716 mGy*cm CT Dose Reduction Employed: No dose reduction techniques were required COMPARISON: None. RESULT: Localizer images: No additional findings. Post-operative change: None. Acute change: No evidence of an acute infarct or other acute parenchymal process. Hemorrhage: No evidence of acute intracranial hemorrhage. ECASS hemorrhagic transformation score: Not Applicable Mass Lesion / Mass Effect: There is no evidence of an intracranial mass or extraaxial fluid collection. No significant mass effect. Chronic change: Scattered patchy foci of low attenuation are present within the supratentorial white matter, a nonspecific finding that most commonly represents mild small vessel disease. Remote left MCA distribution infarct. Atherosclerotic calcification of bilateral carotid siphons and V4 segments. Parenchyma: There is mild generalized volume loss. The brain parenchyma is otherwise within normal limits for age. Ventricles: Ventricular enlargement concordant with the degree of parenchymal volume loss including asymmetric left lateral ventricle horn enlargement. Paranasal sinuses and skull base: The visualized paranasal sinuses are grossly clear. Bilateral pseudophakia. Multiple bilateral intraparotid ovoid soft tissue nodules, measuring up to 1.1 x 0.9 cm on the right (4:4), which may represent intraparotid lymph nodes. The skull base and imaged soft tissues are otherwise unremarkable. IMPRESSION IMPRESSION: No acute intracranial abnormality. Chronic microvascular ischemic changes. Remote left MCA infarct. Butadiene Convertor Operator: PSCB Transcribe Date/Time: Dec 31 2024 1:11P Dictated by : GASTON TORRES MD This examination was interpreted and the report reviewed and electronically signed by: DIEGO PAZ MD on Dec 31 2024 1:17PM [facility] CT Head WO contrastOrdered B y: [facility] Provider on 12-31-2024 [facility] CTA CHEST (GATED) W IVCONon 09-02-2025 CTA CHEST (GATED) W IVCON * * *Final Report* * * DATE OF EXAM: Dec 31 2024 1:08PM [facility] 0125 - CTA CHEST (GATED) W IVCON / PROCEDURE REASON: multiple diagnoses * * * * Physician Interpretation * * * * CTA CARDIAC/Aortic Valve Direct Image Comparison: none HISTORY: 79 years y/o Male with h/o S/p mechanical AoV replacement in 2001 and patient prosthesis mismatch Evaluation for further treatment options There is request to define prosthetic aortic valve anatomy including dynamic assessment TECHNIQUE: SCANNER: Multi-detector scanner PROTOCOL: Spiral imaging of the heart with retrospective gating with sub-millimeter slice reconstruction throughout the cardiac cycle for dynamic 4-D assessment, following intravenous contrast administration. Additional single-phase, spiral imaging of the chest without additional contrast administration. Scan Range: bess to the base of the heart CT Dose-Length Product (DLP): 1496 mGy*cm CT Dose Reduction Employed: Automated exposure control (AEC) CONTRAST: IV administration of 70 ml Omnipaque 350 Scan acquisition: uncomplicated For optimization of anatomic evaluation, advanced 3-D off-line postprocessing was performed on a dedicated workstation by the interpreting physician. STUDY LIMITATIONS: None. RESULT: LINES, TUBES and DEVICES: None limited CHEST: visualized Chest wall anatomy: Enlarged heterogenous thyroid gland with 1.9 cm calcified nodule in the retro-sternal segment. Evidence of median sternotomy with sternal wires in place. visualized LUNGS: 3 mm nodule in the right middle lobe (image 178); 6 mm nodule in the left lower lobe (image 135). Bibasilar atelectases. visualized MEDIASTINUM: unremarkable. Moderate hiatal hernia PERICARDIUM: unremarkable CENTRAL PULMONARY ARTERY: normal dimensions, assessment is limited due to limited contrast enhancement CARDIAC CHAMBERS: LEFT VENTRICLE: normal size Right ventricle: normal size Left atrium: moderately dilated. CAM: normal Right atrium: moderately dilated CENTRAL VENOUS and PULMONARY VENOUS RETURN: normal Coronary Sinus: normal size MITRAL and TRICUSPID VALVE: Assessment is limited in the current study no leaflet calcification, Minimal mitral annular calcification PULMONIC VALVE: Assessment is limited in the current study; no leaflet calcification CORONARY ANATOMY: Normal origin of the coronary arteries short (1.7 cm), shallow (3 mm), intramyocardial course of the Diffuse, calcified atherosclerotic changes of the coronary arteries, precluding precise assessment with CT. Calcified aortocoronary graft to RCA, likely occluded - assessment is limited. AORTIC VALVE: AVR with MECHANICAL VALVE; valve ring 2.6 cm - Valve leaflets are clearly identified in systolic reconstructions and fast, unrestricted motion is seen AORTA: Size: Normal size thoracic aorta. Pathology: No aortic pathology. STJ: maintained Wall Changes: scattered mild calcified wall changes. AORTIC DIMENSIONS: AORTIC ROOT: 3.8 x 3.6 cm measured [id number] mid ASCENDING THORACIC AORTA: 3.7 cm AORTIC ARCH: 3.0 mid DESCENDING THORACIC AORTA: 3.0 cm RELATIONSHIP OF THE CARDIOVASCULAR STRUCTURES OF THE STERNUM: Left brachio-cephalic vein lies 33 mm behind the manubrium sternum RV lies 18 mm behind the lower sternum Aorta lies 47 mm behind the upper sternum limited upper ABDOMEN: there is a 1.6 cm (HU 90) nodule in the right adrenal gland BONES: degenerative changes of the thoracic spine Finance Lecturer (topogram) images: No additional findings. IMPRESSION: AVR with MECHANICAL VALVE; valve ring 2.6 cm; Valve leaflets demonstrate fast, unrestricted motion Right adrenal nodule. Acuity: Actionable Findings: Adrenal Routing Code: AD_1 Recommendation: CT ADRENAL WO/W IVCON MASS EVALUATION TimeFrame: at the discretion of the clinical team. --END OF FINDING-- Enlarged heterogenous thyroid gland with 1.9 cm calcified nodule. Acuity: Actionable Incidental Finding: Follow-up with dedicated thyroid Ultrasound for this incidentally detected thyroid nodule(s) 1.0cm or larger in a patient with no known thyroid disease. [place] [employer] 2009 Small lung nodules. Incidental Finding: Follow-up Acuity: Incidental Finding: Solid: 6-8 mm (solitary nodule) Routing Code: RI_1 Recommendation: CT Chest WO IVCON Time Frame: 6-12 months Comments: If stable on follow-up imaging, a repeat chest CT exam in 12 months (18-24 months from the initial exam) is recommended --END OF FINDING-- Butadiene Convertor Operator: PSCB Transcribe Date/Time: Dec 31 2024 1:12P Dictated by : SUNIL TORRES MD This examination was interpreted and the report reviewed and electronically signed by: SUNIL TORRES MD on Dec 31 2024 3:01PM EST [id number] ACTIONABLE Invalid Interpretation Code [facility] CTA Chest vessels W contrast Betty 12-31-2024 Interpretation and review of laboratory results Abnormal [facility] Radiology Result ACTIONABLE Abnormal [facility] Comment on above: This report contains an incidental or actionable finding. This finding may be a new finding separate from the reason your provider ordered the imaging test or it may be an already known finding that needs additional or continued follow-up. Because of this incidental or actionable finding, you may need another test (imaging or a different type of test). Please contact your provider for the next steps. IMPRESSION: AVR with MECHANICAL VALVE; valve ring 2.6 cm; Valve leaflets demonstrate fast, unrestricted motion Right adrenal nodule. Acuity: Actionable Findings: Adrenal Routing Code: AD_1 Recommendation: CT ADRENAL WO/W IVCON MASS EVALUATION TimeFrame: at the discretion of the clinical team. --END OF FINDING-- Enlarged heterogenous thyroid gland with 1.9 cm calcified nodule. Acuity: Actionable Incidental Finding: Follow-up with dedicated thyroid Ultrasound for this incidentally detected thyroid nodule(s) 1.0cm or larger in a patient with no known thyroid disease. [employer] 2009 Small lung nodules. Incidental Finding: Follow-up Acuity: Incidental Finding: Solid: 6-8 mm (solitary nodule) Routing Code: RI_1 Recommendation: CT Chest WO IVCON Time Frame: 6-12 months Comments: If stable on follow-up imaging, a repeat chest CT exam in 12 months (18-24 months from the initial exam) is recommended --END OF FINDING-- Butadiene Convertor Operator: BRETT Transcribe Date/Time: Dec 31 2024 1:12P Dictated by : SUNIL TORRES MD This examination was interpreted and the report reviewed and electronically signed by: SUNIL TORRES MD on Dec 31 2024 3:01PM [facility] DIVISION OF RADIOLOGY * * *Final Report* * * DATE OF EXAM: Dec 31 2024 1:08PM [facility] 0125 - CTA CHEST (GATED) W IVCON / PROCEDURE REASON: multiple diagnoses * * * * Physician Interpretation * * * * CTA CARDIAC/Aortic Valve Direct Image Comparison: none HISTORY: 79 years y/o Male with h/o S/p mechanical AoV replacement in 2001 and patient prosthesis mismatch Evaluation for further treatment options There is request to define prosthetic aortic valve anatomy including dynamic assessment TECHNIQUE: SCANNER: Multi-detector scanner PROTOCOL: Spiral imaging of the heart with retrospective gating with sub-millimeter slice reconstruction throughout the cardiac cycle for dynamic 4-D assessment, following intravenous contrast administration. Additional single-phase, spiral imaging of the chest without additional contrast administration. Scan Range: bess to the base of the heart CT Dose-Length Product (DLP): 1496 mGy*cm CT Dose Reduction Employed: Automated exposure control (AEC) CONTRAST: IV administration of 70 ml Omnipaque 350 Scan acquisition: uncomplicated For optimization of anatomic evaluation, advanced 3-D off-line postprocessing was performed on a dedicated workstation by the interpreting physician. STUDY LIMITATIONS: None. RESULT: LINES, TUBES and DEVICES: None limited CHEST: visualized Chest wall anatomy: Enlarged heterogenous thyroid gland with 1.9 cm calcified nodule in the retro-sternal segment. Evidence of median sternotomy with sternal wires in place. visualized LUNGS: 3 mm nodule in the right middle lobe (image 178); 6 mm nodule in the left lower lobe (image 135). Bibasilar atelectases. visualized MEDIASTINUM: unremarkable. Moderate hiatal hernia PERICARDIUM: unremarkable CENTRAL PULMONARY ARTERY: normal dimensions, assessment is limited due to limited contrast enhancement CARDIAC CHAMBERS: LEFT VENTRICLE: normal size Right ventricle: normal size Left atrium: moderately dilated. CAM: normal Right atrium: moderately dilated CENTRAL VENOUS and PULMONARY VENOUS RETURN: normal Coronary Sinus: normal size MITRAL and TRICUSPID VALVE: Assessment is limited in the current study no leaflet calcification, Minimal mitral annular calcification PULMONIC VALVE: Assessment is limited in the current study; no leaflet calcification CORONARY ANATOMY: Normal origin of the coronary arteries short (1.7 cm), shallow (3 mm), intramyocardial course of the Diffuse, calcified atherosclerotic changes of the coronary arteries, precluding precise assessment with CT. Calcified aortocoronary graft to RCA, likely occluded - assessment is limited. AORTIC VALVE: AVR with MECHANICAL VALVE; valve ring 2.6 cm - Valve leaflets are clearly identified in systolic reconstructions and fast, unrestricted motion is seen AORTA: Size: Normal size thoracic aorta. Pathology: No aortic pathology. STJ: maintained Wall Changes: scattered mild calcified wall changes. AORTIC DIMENSIONS: AORTIC ROOT: 3.8 x 3.6 cm measured [id number] mid ASCENDING THORACIC AORTA: 3.7 cm AORTIC ARCH: 3.0 mid DESCENDING THORACIC AORTA: 3.0 cm RELATIONSHIP OF THE CARDIOVASCULAR STRUCTURES OF THE STERNUM: Left brachio-cephalic vein lies 33 mm behind the manubrium sternum RV lies 18 mm behind the lower sternum Aorta lies 47 mm behind the upper sternum limited upper ABDOMEN: there is a 1.6 cm (HU 90) nodule in the right adrenal gland BONES: degenerative changes of the thoracic spine Finance Lecturer (topogram) images: No additional findings. DIVISION OF RADIOLOGY Provider, [facility] - 12/31/2024 * * *Final Report* * * DATE OF EXAM: Dec 31 2024 1:08PM [facility] 0125 - CTA CHEST (GATED) W IVCON / PROCEDURE REASON: multiple diagnoses * * * * Physician Interpretation * * * * CTA CARDIAC/Aortic Valve Direct Image Comparison: none HISTORY: 79 years y/o Male with h/o S/p mechanical AoV replacement in 2001 and patient prosthesis mismatch Evaluation for further treatment options There is request to define prosthetic aortic valve anatomy including dynamic assessment TECHNIQUE: SCANNER: Multi-detector scanner PROTOCOL: Spiral imaging of the heart with retrospective gating with sub-millimeter slice reconstruction throughout the cardiac cycle for dynamic 4-D assessment, following intravenous contrast administration. Additional single-phase, spiral imaging of the chest without additional contrast administration. Scan Range: bess to the base of the heart CT Dose-Length Product (DLP): 1496 mGy*cm CT Dose Reduction Employed: Automated exposure control (AEC) CONTRAST: IV administration of 70 ml Omnipaque 350 Scan acquisition: uncomplicated For optimization of anatomic evaluation, advanced 3-D off-line postprocessing was performed on a dedicated workstation by the interpreting physician. STUDY LIMITATIONS: None. RESULT: LINES, TUBES and DEVICES: None limited CHEST: visualized Chest wall anatomy: Enlarged heterogenous thyroid gland with 1.9 cm calcified nodule in the retro-sternal segment. Evidence of median sternotomy with sternal wires in place. visualized LUNGS: 3 mm nodule in the right middle lobe (image 178); 6 mm nodule in the left lower lobe (image 135). Bibasilar atelectases. visualized MEDIASTINUM: unremarkable. Moderate hiatal hernia PERICARDIUM: unremarkable CENTRAL PULMONARY ARTERY: normal dimensions, assessment is limited due to limited contrast enhancement CARDIAC CHAMBERS: LEFT VENTRICLE: normal size Right ventricle: normal size Left atrium: moderately dilated. CAM: normal Right atrium: moderately dilated CENTRAL VENOUS and PULMONARY VENOUS RETURN: normal Coronary Sinus: normal size MITRAL and TRICUSPID VALVE: Assessment is limited in the current study no leaflet calcification, Minimal mitral annular calcification PULMONIC VALVE: Assessment is limited in the current study; no leaflet calcification CORONARY ANATOMY: Normal origin of the coronary arteries short (1.7 cm), shallow (3 mm), intramyocardial course of the Diffuse, calcified atherosclerotic changes of the coronary arteries, precluding precise assessment with CT. Calcified aortocoronary graft to RCA, likely occluded - assessment is limited. AORTIC VALVE: AVR with MECHANICAL VALVE; valve ring 2.6 cm - Valve leaflets are clearly identified in systolic reconstructions and fast, unrestricted motion is seen AORTA: Size: Normal size thoracic aorta. Pathology: No aortic pathology. STJ: maintained Wall Changes: scattered mild calcified wall changes. AORTIC DIMENSIONS: AORTIC ROOT: 3.8 x 3.6 cm measured [id number] mid ASCENDING THORACIC AORTA: 3.7 cm AORTIC ARCH: 3.0 mid DESCENDING THORACIC AORTA: 3.0 cm RELATIONSHIP OF THE CARDIOVASCULAR STRUCTURES OF THE STERNUM: Left brachio-cephalic vein lies 33 mm behind the manubrium sternum RV lies 18 mm behind the lower sternum Aorta lies 47 mm behind the upper sternum limited upper ABDOMEN: there is a 1.6 cm (HU 90) nodule in the right adrenal gland BONES: degenerative changes of the thoracic spine Finance Lecturer (topogram) images: No additional findings. IMPRESSION IMPRESSION: AVR with MECHANICAL VALVE; valve ring 2.6 cm; Valve leaflets demonstrate fast, unrestricted motion Right adrenal nodule. Acuity: Actionable Findings: Adrenal Routing Code: AD_1 Recommendation: CT ADRENAL WO/W IVCON MASS EVALUATION TimeFrame: at the discretion of the clinical team. --END OF FINDING-- Enlarged heterogenous thyroid gland with 1.9 cm calcified nodule. Acuity: Actionable Incidental Finding: Follow-up with dedicated thyroid Ultrasound for this incidentally detected thyroid nodule(s) 1.0cm or larger in a patient with no known thyroid disease. [place] [employer] 2009 Small lung nodules. Incidental Finding: Follow-up Acuity: Incidental Finding: Solid: 6-8 mm (solitary nodule) Routing Code: RI_1 Recommendation: CT Chest WO IVCON Time Frame: 6-12 months Comments: If stable on follow-up imaging, a repeat chest CT exam in 12 months (18-24 months from the initial exam) is recommended --END OF FINDING-- Butadiene Convertor Operator: BRETT Transcribe Date/Time: Dec 31 2024 1:12P Dictated by : SUNIL TORRES MD This examination was interpreted and the report reviewed and electronically signed by: SUNIL TORRES MD on Dec 31 2024 3:01PM [facility] ECHOon 12-31-2024 Echocardiography Echocardiography Report: Transthoracic Echo [facility] [id number] Date of service: 12/31/2024 10:19:06 AM DERMATOLOGIST Ordering physician: ALEXANDER RAMIREZ Exam indication: Preop redo AVR Technologist: Mirian Cohn [facility] Interpreting physician: Cipriano Raya MD PATIENT: Name: JUAQUIN KHALIL : 1945 Age: 79 years Gender: M History of coronary artery disease, valvular heart disease and arrhythmia. Previous cardiovascular interventions: CABG (2001) Aortic valve replacement (2001) Primary rhythm: atrial fib. Height: 149.86 cm BSA: 2.16 m Weight: 112.49 kg BMI: 50.1 kg/m Heart rate 55 bpm Blood pressure 134/52 mmHg Color Doppler was utilized to interrogate the cardiac valves assessed and spectral Doppler was utilized to determine the flow velocities and pressure gradients reported in this exam. MEASUREMENTS: Value Indexed Normal Max aortic dimension 3.7 cm Ao < 3.8 Left atrial volume 150 ml (biplane A-L) 74 ml/m Marta <= 34 LV ID (diastole) 4.0 cm (2D) 1.86 cm/m LV ID (systole) 3.2 cm (2D) 1.47 cm/m IVS, leaflet tips 1.1 cm (2D) Posterior wall thickness 1.0 cm (2D) Left ventricular mass 138 g (2D) 64 g/m LV stroke volume 74 ml (2D 4-ch.) LV end diastolic volume 140 ml (2D 4-ch.) 64.5 ml/m 34<=EDVi<75 LV end systolic volume 65 ml (2D 4-ch.) 30.2 ml/m Ejection Fraction 53 % (2D 4-ch.) EF > 52 FINDINGS: LEFT VENTRICLE The left ventricle is normal in size. Left ventricular systolic function is normal. Left ventricular diastolic function was not evaluated due to AF. Wall Motion: All scored segments are normal. RIGHT VENTRICLE The right ventricle is normal in size. Right ventricular systolic function is normal. RV systolic tissue Doppler velocity is 9.0 cm/s. Tricuspid annular displacement is 1.0 cm. Estimated right ventricular systolic pressure is 35 mmHg consistent with mild pulmonary hypertension. Estimated right atrial pressure is 3 mmHg based on IVC assessment. LEFT ATRIUM The left atrial cavity is dilated. RIGHT ATRIUM The right atrial cavity is dilated (RA area = 27.0 cm ). Inferior Vena Cava: The inferior vena cava appears normal measuring 1.30 cm. The vessel decreases greater than 50 percent with inspiration. MITRAL VALVE There is mild (1+) mitral valve regurgitation. There is mild thickening. TRICUSPID VALVE The tricuspid valve leaflets are structurally normal. There is trace tricuspid valve regurgitation. AORTIC VALVE Mechanical prosthetic valve. There is mild (1+ - 2+) aortic valve regurgitation. The peak gradient is 42 mmHg (peak velocity = 324.2 cm/s). The mean gradient is 21 mmHg. The LVOT mean velocity is 58.8 cm/s. The aortic VTI is 71.7 cm. The mean velocity in the aortic valve is 214.3 cm/s. The dimensionless valve index is 0.31. PULMONIC VALVE The pulmonic valve cusps are structurally normal. There is trace pulmonic valve regurgitation. AORTA The visualized aorta is normal in size. Measurements - Sinus: 3.6 cm. Sinotubular junction 3.0 cm. Mid ascending aorta 3.7 cm. INTERATRIAL SEPTUM There is no evidence of intracardiac shunting as detected by Doppler. INTERVENTRICULAR SEPTUM There is no flow through the interventricular septum as detected by Doppler. PERICARDIUM There is no pericardial effusion. CONCLUSIONS: - Exam indication: Preop redo AVR - The left ventricle is normal in size. Left ventricular systolic function is normal. EF = 53 5% (2D 4-ch.) Left ventricular diastolic function was not evaluated due to AF. - The right ventricle is normal in size. Right ventricular systolic function is normal. - The left atrial cavity is dilated. - The right atrial cavity is dilated. - Mechanical prosthetic aortic valve. There is mild (1+ - 2+) aortic valve regurgitation. The peak gradient is 42 mmHg, the mean gradient is 21 mmHg and the dimensionless valve index is 0.31. Mobile echodensity noted on the aortic side of the AVR (clips 45-48) - consider EDGAR. - The patient has not had a prior CC echocardiographic exam for comparison. * * * Final * * * [facility] [employer] [facility] : [id number] csSISUID Normal [facility] ESR Westergren method (Bld) [Velocity]on 12-31-2024 ESR (Bld) [Velocity] 2 mm/h [facility] Interpretation and review of laboratory results Normal [facility] ESR (Bld) [Velocity] 2 mm/h Normal 0-15 [facility] Comment on above: Order Comment: Speci men Type: BLOOD SPECIMEN Ordering Facility: [facility] Address: [address] [place] [address] Performed By: #### T [id number] #### [facility] CLIA [id number] [address] [place], [place] [address] [place] [address] [place] No Panel Informationon 12-31 Radiology Study observation (narrative) [facility] PROCALCITONINon 12-31-2024 Procalcitonin [Mass/Vol] ng/mL NINF - 0.09 ng/mL [facility] Comment on above: For a guided interpr etation of test results, please visit the Change in Procalcitonin Calculator, [email or web address]. Procalcitonin SerPl-mCncon 0 12-31-2024 Procalcitonin [Mass/Vol] ng/mL Normal <0.09 [facility] Comment on above: Order Comment: Speci men Type: BLOOD SPECIMENOrdering Facility: [facility] Address: [address] [place] [address] Result Comment: For a guided interpretation of test results, please visit the Change in Procalcitonin Calculator, [email or web address]. Performed By: #### 1 988-5, 94735-3 ####[facility] LABCLIA [id number] [place] [address] [place] Procalcitonin [Mass/Vol]on 0 12-31-2024 Interpretation and review of laboratory results Normal [facility] Basic Metabolic Profile (BMP )on 12-27-2024 BUN Normal 4-19 [facility] Comment on above: Result Comment: Canc elled via OM: Order cancelled - Patient discharged Performed By: #### L 100.0500, L300.3900, L500.2500 #### [facility] [address] [place], [address] BUN/CRE Normal 10-20 [facility] Comment on above: Result Comment: Canc elled via OM: Order cancelled - Patient discharged Performed By: #### L 100.0500, L300.3900, L500.2500 #### [facility] [address] [place], [address] Calcium Normal 7.6-11.0 [facility] Comment on above: Result Comment: Canc elled via OM: Order cancelled - Patient discharged Performed By: #### L 100.0500, L300.3900, L500.2500 #### [facility] [address] [place], [address] CL Normal 98-108 [facility] Comment on above: Result Comment: Canc elled via OM: Order cancelled - Patient discharged Performed By: #### L 100.0500, L300.3900, L500.2500 #### [facility] [address] [place], [address] CO2 Normal 21.0-32.0 [facility] Comment on above: Result Comment: Canc elled via OM: Order cancelled - Patient discharged Performed By: #### L 100.0500, L300.3900, L500.2500 #### [facility] [address] [place], [address] CREAT,SERUM Normal 0.70-1.20 [facility] Comment on above: Result Comment: Canc elled via OM: Order cancelled - Patient discharged Performed By: #### L 100.0500, L300.3900, L500.2500 #### [facility] [address] [place], [address] eGFR Normal >60 [facility] Comment on above: Result Comment: Canc elled via OM: Order cancelled - Patient discharged Performed By: #### L 100.0500, L300.3900, L500.2500 #### [facility] [address] [place], [address] GAP Normal 5-15 [facility] Comment on above: Result Comment: Canc elled via OM: Order cancelled - Patient discharged Performed By: #### L 100.0500, L300.3900, L500.2500 #### [facility] [address] [place], [address] GLU Normal 70-99 [facility] Comment on above: Result Comment: Canc elled via OM: Order cancelled - Patient discharged Performed By: #### L 100.0500, L300.3900, L500.2500 #### [facility] [address] [place], [address] Potassium Normal 3.3-5.1 [facility] Comment on above: Result Comment: Canc elled via OM: Order cancelled - Patient discharged Performed By: #### L 100.0500, L300.3900, L500.2500 #### [facility] [address] [place], [address] Basic Metabolic Profile (BMP) Normal 133-145 [facility] Comment on above: Result Comment: Canc elled via OM: Order cancelled - Patient discharged Performed By: #### L 100.0500, L300.3900, L500.2500 #### [facility] [address] [place], [address] CBC W/Diff, Automatedon 08-2 Absolute Neut Normal 2.0-7.7 [facility] Comment on above: Result Comment: Canc elled via OM: Order cancelled - Patient discharged Performed By: #### L 100.0500, L300.3900, L500.2500 #### [facility] [address] [place], [address] HCT Normal 40-54 [facility] Comment on above: Result Comment: Canc elled via OM: Order cancelled - Patient discharged Performed By: #### L 100.0500, L300.3900, L500.2500 #### [facility] [address] [place], [address] HGB Normal 13.0-16.5 [facility] Comment on above: Result Comment: Canc elled via OM: Order cancelled - Patient discharged Performed By: #### L 100.0500, L300.3900, L500.2500 #### [facility] [address] [place], [address] MCH Normal 27.0-32.0 [facility] Comment on above: Result Comment: Canc elled via OM: Order cancelled - Patient discharged Performed By: #### L 100.0500, L300.3900, L500.2500 #### [facility] [address] [place], [address] MCHC Normal 32-36 [facility] Comment on above: Result Comment: Canc elled via OM: Order cancelled - Patient discharged Performed By: #### L 100.0500, L300.3900, L500.2500 #### [facility] [address] [place], [address] MCV Normal 80-94 [facility] Comment on above: Result Comment: Canc elled via OM: Order cancelled - Patient discharged Performed By: #### L 100.0500, L300.3900, L500.2500 #### [facility] [address] [place], [address] NEUT% Normal 47-70 [facility] Comment on above: Result Comment: Canc elled via OM: Order cancelled - Patient discharged Performed By: #### L 100.0500, L300.3900, L500.2500 #### [facility] [address] [place], [address] PLT Normal 150-450 [facility] Comment on above: Result Comment: Canc elled via OM: Order cancelled - Patient discharged Performed By: #### L 100.0500, L300.3900, L500.2500 #### [facility] [address] [place], [address] RBC Normal 4.6-6.2 [facility] Comment on above: Result Comment: Canc elled via OM: Order cancelled - Patient discharged Performed By: #### L 100.0500, L300.3900, L500.2500 #### [facility] [address] [place], [address] RDW CV Normal 11.6-14.6 [facility] Comment on above: Result Comment: Canc elled via OM: Order cancelled - Patient discharged Performed By: #### L 100.0500, L300.3900, L500.2500 #### [facility] [address] [place], [address] RDW SD Normal 35.1-43.9 [facility] Comment on above: Result Comment: Canc elled via OM: Order cancelled - Patient discharged Performed By: #### L 100.0500, L300.3900, L500.2500 #### [facility] [address] [place], [address] WBC Normal 4.4-11.0 [facility] Comment on above: Result Comment: Canc elled via OM: Order cancelled - Patient discharged Performed By: #### L 100.0500, L300.3900, L500.2500 #### [facility] [address] [place], [address] Basic Metabolic Profile (BMP )on 12-26-2024 BUN Normal 4-19 [facility] Comment on above: Result Comment: Canc elled via OM: Order cancelled - Patient discharged Performed By: #### L 100.0500, L300.3900, L500.2500 #### [facility] [address] [place], [address] BUN/CRE Normal 10-20 [facility] Comment on above: Result Comment: Canc elled via OM: Order cancelled - Patient discharged Performed By: #### L 100.0500, L300.3900, L500.2500 #### [facility] [address] [place], [address] Calcium Normal 7.6-11.0 [facility] Comment on above: Result Comment: Canc elled via OM: Order cancelled - Patient discharged Performed By: #### L 100.0500, L300.3900, L500.2500 #### [facility] [address] [place], [address] CL Normal 98-108 [facility] Comment on above: Result Comment: Canc elled via OM: Order cancelled - Patient discharged Performed By: #### L 100.0500, L300.3900, L500.2500 #### [facility] [address] [place], [address] CO2 Normal 21.0-32.0 [facility] Comment on above: Result Comment: Canc elled via OM: Order cancelled - Patient discharged Performed By: #### L 100.0500, L300.3900, L500.2500 #### [facility] [address] [place], [address] CREAT,SERUM Normal 0.70-1.20 [facility] Comment on above: Result Comment: Canc elled via OM: Order cancelled - Patient discharged Performed By: #### L 100.0500, L300.3900, L500.2500 #### [facility] [address] [place], [address] eGFR Normal >60 [facility] Comment on above: Result Comment: Canc elled via OM: Order cancelled - Patient discharged Performed By: #### L 100.0500, L300.3900, L500.2500 #### [facility] [address] [place], [address] GAP Normal 5-15 [facility] Comment on above: Result Comment: Canc elled via OM: Order cancelled - Patient discharged Performed By: #### L 100.0500, L300.3900, L500.2500 #### [facility] [address] [place], [address] GLU Normal 70-99 [facility] Comment on above: Result Comment: Canc elled via OM: Order cancelled - Patient discharged Performed By: #### L 100.0500, L300.3900, L500.2500 #### [facility] [address] [place], [address] Potassium Normal 3.3-5.1 [facility] Comment on above: Result Comment: Canc elled via OM: Order cancelled - Patient discharged Performed By: #### L 100.0500, L300.3900, L500.2500 #### [facility] [address] [place], [address] Basic Metabolic Profile (BMP) Normal 133-145 [facility] Comment on above: Result Comment: Canc elled via OM: Order cancelled - Patient discharged Performed By: #### L 100.0500, L300.3900, L500.2500 #### [facility] [address] [place], [address] CBC W/Diff, Automatedon 08-2 Absolute Neut Normal 2.0-7.7 [facility] Comment on above: Result Comment: Canc elled via OM: Order cancelled - Patient discharged Performed By: #### L 100.0500, L300.3900, L500.2500 #### [facility] [address] [place], [address] HCT Normal 40-54 [facility] Comment on above: Result Comment: Canc elled via OM: Order cancelled - Patient discharged Performed By: #### L 100.0500, L300.3900, L500.2500 #### [facility] [address] [place], [address] HGB Normal 13.0-16.5 [facility] Comment on above: Result Comment: Canc elled via OM: Order cancelled - Patient discharged Performed By: #### L 100.0500, L300.3900, L500.2500 #### [facility] [address] [place], [address] MCH Normal 27.0-32.0 [facility] Comment on above: Result Comment: Canc elled via OM: Order cancelled - Patient discharged Performed By: #### L 100.0500, L300.3900, L500.2500 #### [facility] [address] [place], [address] MCHC Normal 32-36 [facility] Comment on above: Result Comment: Canc elled via OM: Order cancelled - Patient discharged Performed By: #### L 100.0500, L300.3900, L500.2500 #### [facility] [address] [place], [address] MCV Normal 80-94 [facility] Comment on above: Result Comment: Canc elled via OM: Order cancelled - Patient discharged Performed By: #### L 100.0500, L300.3900, L500.2500 #### [facility] [address] [place], [address] NEUT% Normal 47-70 [facility] Comment on above: Result Comment: Canc elled via OM: Order cancelled - Patient discharged Performed By: #### L 100.0500, L300.3900, L500.2500 #### [facility] [address] [place], [address] PLT Normal 150-450 [facility] Comment on above: Result Comment: Canc elled via OM: Order cancelled - Patient discharged Performed By: #### L 100.0500, L300.3900, L500.2500 #### [facility] [address] [place], [address] RBC Normal 4.6-6.2 [facility] Comment on above: Result Comment: Canc elled via OM: Order cancelled - Patient discharged Performed By: #### L 100.0500, L300.3900, L500.2500 #### [facility] [address] [place], [address] RDW CV Normal 11.6-14.6 [facility] Comment on above: Result Comment: Canc elled via OM: Order cancelled - Patient discharged Performed By: #### L 100.0500, L300.3900, L500.2500 #### [facility] [address] [place], [address] RDW SD Normal 35.1-43.9 [facility] Comment on above: Result Comment: Canc elled via OM: Order cancelled - Patient discharged Performed By: #### L 100.0500, L300.3900, L500.2500 #### [facility] [address] [place], [address] WBC Normal 4.4-11.0 [facility] Comment on above: Result Comment: Canc elled via OM: Order cancelled - Patient discharged Performed By: #### L 100.0500, L300.3900, L500.2500 #### [facility] [address] [place], [address] Basic Metabolic Profile (BMP )on 12-25-2024 BUN Normal 4-19 [facility] Comment on above: Result Comment: Canc elled via OM: Order cancelled - Patient discharged Performed By: #### L 100.0500, L300.3900, L500.2500 #### [facility] [address] [place], [address] BUN/CRE Normal 10-20 [facility] Comment on above: Result Comment: Canc elled via OM: Order cancelled - Patient discharged Performed By: #### L 100.0500, L300.3900, L500.2500 #### [facility] [address] [place], [address] Calcium Normal 7.6-11.0 [facility] Comment on above: Result Comment: Canc elled via OM: Order cancelled - Patient discharged Performed By: #### L 100.0500, L300.3900, L500.2500 #### [facility] [address] [place], [address] CL Normal 98-108 [facility] Comment on above: Result Comment: Canc elled via OM: Order cancelled - Patient discharged Performed By: #### L 100.0500, L300.3900, L500.2500 #### [facility] [address] [place], [address] CO2 Normal 21.0-32.0 [facility] Comment on above: Result Comment: Canc elled via OM: Order cancelled - Patient discharged Performed By: #### L 100.0500, L300.3900, L500.2500 #### [facility] [address] [place], [address] CREAT,SERUM Normal 0.70-1.20 [facility] Comment on above: Result Comment: Canc elled via OM: Order cancelled - Patient discharged Performed By: #### L 100.0500, L300.3900, L500.2500 #### [facility] [address] [place], [address] eGFR Normal >60 [facility] Comment on above: Result Comment: Canc elled via OM: Order cancelled - Patient discharged Performed By: #### L 100.0500, L300.3900, L500.2500 #### [facility] [address] [place], [address] GAP Normal 5-15 [facility] Comment on above: Result Comment: Canc elled via OM: Order cancelled - Patient discharged Performed By: #### L 100.0500, L300.3900, L500.2500 #### [facility] [address] [place], [address] GLU Normal 70-99 [facility] Comment on above: Result Comment: Canc elled via OM: Order cancelled - Patient discharged Performed By: #### L 100.0500, L300.3900, L500.2500 #### [facility] [address] [place], [address] Potassium Normal 3.3-5.1 [facility] Comment on above: Result Comment: Canc elled via OM: Order cancelled - Patient discharged Performed By: #### L 100.0500, L300.3900, L500.2500 #### [facility] [address] [place], [address] Basic Metabolic Profile (BMP) Normal 133-145 [facility] Comment on above: Result Comment: Canc elled via OM: Order cancelled - Patient discharged Performed By: #### L 100.0500, L300.3900, L500.2500 #### [facility] [address] [place], [address] CBC W/Diff, Automatedon 08-2 Absolute Neut Normal 2.0-7.7 [facility] Comment on above: Result Comment: Canc elled via OM: Order cancelled - Patient discharged Performed By: #### L 100.0500, L300.3900, L500.2500 #### [facility] [address] [place], [address] HCT Normal 40-54 [facility] Comment on above: Result Comment: Canc elled via OM: Order cancelled - Patient discharged Performed By: #### L 100.0500, L300.3900, L500.2500 #### [facility] [address] [place], [address] HGB Normal 13.0-16.5 [facility] Comment on above: Result Comment: Canc elled via OM: Order cancelled - Patient discharged Performed By: #### L 100.0500, L300.3900, L500.2500 #### [facility] [address] [place], [address] MCH Normal 27.0-32.0 [facility] Comment on above: Result Comment: Canc elled via OM: Order cancelled - Patient discharged Performed By: #### L 100.0500, L300.3900, L500.2500 #### [facility] [address] [place], [address] MCHC Normal 32-36 [facility] Comment on above: Result Comment: Canc elled via OM: Order cancelled - Patient discharged Performed By: #### L 100.0500, L300.3900, L500.2500 #### [facility] [address] [place], [address] MCV Normal 80-94 [facility] Comment on above: Result Comment: Canc elled via OM: Order cancelled - Patient discharged Performed By: #### L 100.0500, L300.3900, L500.2500 #### [facility] [address] [place], [address] NEUT% Normal 47-70 [facility] Comment on above: Result Comment: Canc elled via OM: Order cancelled - Patient discharged Performed By: #### L 100.0500, L300.3900, L500.2500 #### [facility] [address] [place], [address] PLT Normal 150-450 [facility] Comment on above: Result Comment: Canc elled via OM: Order cancelled - Patient discharged Performed By: #### L 100.0500, L300.3900, L500.2500 #### [facility] [address] [place], [address] RBC Normal 4.6-6.2 [facility] Comment on above: Result Comment: Canc elled via OM: Order cancelled - Patient discharged Performed By: #### L 100.0500, L300.3900, L500.2500 #### [facility] [address] [place], [address] RDW CV Normal 11.6-14.6 [facility] Comment on above: Result Comment: Canc elled via OM: Order cancelled - Patient discharged Performed By: #### L 100.0500, L300.3900, L500.2500 #### [facility] [address] [place], [address] RDW SD Normal 35.1-43.9 [facility] Comment on above: Result Comment: Canc elled via OM: Order cancelled - Patient discharged Performed By: #### L 100.0500, L300.3900, L500.2500 #### [facility] [address] [place], [address] WBC Normal 4.4-11.0 [facility] Comment on above: Result Comment: Canc elled via OM: Order cancelled - Patient discharged Performed By: #### L 100.0500, L300.3900, L500.2500 #### [facility] [address] [place], [address] Basic Metabolic Profile (BMP )on 12-24-2024 BUN Normal 4-19 [facility] Comment on above: Result Comment: Canc elled via OM: Order cancelled - Patient discharged Performed By: #### L 100.0500, L300.3900, L500.2500 #### [facility] [address] [place], [address] BUN/CRE Normal 10-20 [facility] Comment on above: Result Comment: Canc elled via OM: Order cancelled - Patient discharged Performed By: #### L 100.0500, L300.3900, L500.2500 #### [facility] [address] [place], [address] Calcium Normal 7.6-11.0 [facility] Comment on above: Result Comment: Canc elled via OM: Order cancelled - Patient discharged Performed By: #### L 100.0500, L300.3900, L500.2500 #### [facility] [address] [place], [address] CL Normal 98-108 [facility] Comment on above: Result Comment: Canc elled via OM: Order cancelled - Patient discharged Performed By: #### L 100.0500, L300.3900, L500.2500 #### [facility] [address] [place], [address] CO2 Normal 21.0-32.0 [facility] Comment on above: Result Comment: Canc elled via OM: Order cancelled - Patient discharged Performed By: #### L 100.0500, L300.3900, L500.2500 #### [facility] [address] [place], [address] CREAT,SERUM Normal 0.70-1.20 [facility] Comment on above: Result Comment: Canc elled via OM: Order cancelled - Patient discharged Performed By: #### L 100.0500, L300.3900, L500.2500 #### [facility] [address] [place], [address] eGFR Normal >60 [facility] Comment on above: Result Comment: Canc elled via OM: Order cancelled - Patient discharged Performed By: #### L 100.0500, L300.3900, L500.2500 #### [facility] [address] [place], [address] GAP Normal 5-15 [facility] Comment on above: Result Comment: Canc elled via OM: Order cancelled - Patient discharged Performed By: #### L 100.0500, L300.3900, L500.2500 #### [facility] [address] [place], [address] GLU Normal 70-99 [facility] Comment on above: Result Comment: Canc elled via OM: Order cancelled - Patient discharged Performed By: #### L 100.0500, L300.3900, L500.2500 #### [facility] [address] [place], [address] Potassium Normal 3.3-5.1 [facility] Comment on above: Result Comment: Canc elled via OM: Order cancelled - Patient discharged Performed By: #### L 100.0500, L300.3900, L500.2500 #### [facility] [address] [place], [address] Basic Metabolic Profile (BMP) Normal 133-145 [facility] Comment on above: Result Comment: Canc elled via OM: Order cancelled - Patient discharged Performed By: #### L 100.0500, L300.3900, L500.2500 #### [facility] [address] [place], [address] CBC W/Diff, Automatedon 08-2 Absolute Neut Normal 2.0-7.7 [facility] Comment on above: Result Comment: Canc elled via OM: Order cancelled - Patient discharged Performed By: #### L 100.0500, L300.3900, L500.2500 #### [facility] [address] [place], [address] HCT Normal 40-54 [facility] Comment on above: Result Comment: Canc elled via OM: Order cancelled - Patient discharged Performed By: #### L 100.0500, L300.3900, L500.2500 #### [facility] [address] [place], [address] HGB Normal 13.0-16.5 [facility] Comment on above: Result Comment: Canc elled via OM: Order cancelled - Patient discharged Performed By: #### L 100.0500, L300.3900, L500.2500 #### [facility] [address] [place], [address] MCH Normal 27.0-32.0 [facility] Comment on above: Result Comment: Canc elled via OM: Order cancelled - Patient discharged Performed By: #### L 100.0500, L300.3900, L500.2500 #### [facility] [address] [place], [address] MCHC Normal 32-36 [facility] Comment on above: Result Comment: Canc elled via OM: Order cancelled - Patient discharged Performed By: #### L 100.0500, L300.3900, L500.2500 #### [facility] [address] [place], [address] MCV Normal 80-94 [facility] Comment on above: Result Comment: Canc elled via OM: Order cancelled - Patient discharged Performed By: #### L 100.0500, L300.3900, L500.2500 #### [facility] [address] [place], [address] NEUT% Normal 47-70 [facility] Comment on above: Result Comment: Canc elled via OM: Order cancelled - Patient discharged Performed By: #### L 100.0500, L300.3900, L500.2500 #### [facility] [address] [place], [address] PLT Normal 150-450 [facility] Comment on above: Result Comment: Canc elled via OM: Order cancelled - Patient discharged Performed By: #### L 100.0500, L300.3900, L500.2500 #### [facility] [address] [place], [address] RBC Normal 4.6-6.2 [facility] Comment on above: Result Comment: Canc elled via OM: Order cancelled - Patient discharged Performed By: #### L 100.0500, L300.3900, L500.2500 #### [facility] [address] [place], [address] RDW CV Normal 11.6-14.6 [facility] Comment on above: Result Comment: Canc elled via OM: Order cancelled - Patient discharged Performed By: #### L 100.0500, L300.3900, L500.2500 #### [facility] [address] [place], [address] RDW SD Normal 35.1-43.9 [facility] Comment on above: Result Comment: Canc elled via OM: Order cancelled - Patient discharged Performed By: #### L 100.0500, L300.3900, L500.2500 #### [facility] [address] [place], [address] WBC Normal 4.4-11.0 [facility] Comment on above: Result Comment: Canc elled via OM: Order cancelled - Patient discharged Performed By: #### L 100.0500, L300.3900, L500.2500 #### [facility] [address] [place], [address] Culture, Blood (WB)on 2024 CUB Blood cultures x2, from two different sites No growth in [address] [facility] Comment on above: Performed By: #### L 400.0001 #### [facility] [address] [place], [address] Basic Metabolic Profile (BMP )on 12-23-2024 BUN Normal 4-19 [facility] Comment on above: Result Comment: Canc elled via OM: Order cancelled - Patient discharged Performed By: #### L 100.0500, L300.3900, L500.2500 #### [facility] [address] [place], [address] BUN/CRE Normal 10-20 [facility] Comment on above: Result Comment: Canc elled via OM: Order cancelled - Patient discharged Performed By: #### L 100.0500, L300.3900, L500.2500 #### [facility] [address] [place], [address] Calcium Normal 7.6-11.0 [facility] Comment on above: Result Comment: Canc elled via OM: Order cancelled - Patient discharged Performed By: #### L 100.0500, L300.3900, L500.2500 #### [facility] [address] [place], [address] CL Normal 98-108 [facility] Comment on above: Result Comment: Canc elled via OM: Order cancelled - Patient discharged Performed By: #### L 100.0500, L300.3900, L500.2500 #### [facility] [address] [place], [address] CO2 Normal 21.0-32.0 [facility] Comment on above: Result Comment: Canc elled via OM: Order cancelled - Patient discharged Performed By: #### L 100.0500, L300.3900, L500.2500 #### [facility] [address] [place], [address] CREAT,SERUM Normal 0.70-1.20 [facility] Comment on above: Result Comment: Canc elled via OM: Order cancelled - Patient discharged Performed By: #### L 100.0500, L300.3900, L500.2500 #### [facility] [address] [place], [address] eGFR Normal >60 [facility] Comment on above: Result Comment: Canc elled via OM: Order cancelled - Patient discharged Performed By: #### L 100.0500, L300.3900, L500.2500 #### [facility] [address] [place], [address] GAP Normal 5-15 [facility] Comment on above: Result Comment: Canc elled via OM: Order cancelled - Patient discharged Performed By: #### L 100.0500, L300.3900, L500.2500 #### [facility] [address] [place], [address] GLU Normal 70-99 [facility] Comment on above: Result Comment: Canc elled via OM: Order cancelled - Patient discharged Performed By: #### L 100.0500, L300.3900, L500.2500 #### [facility] [address] [place], [address] Potassium Normal 3.3-5.1 [facility] Comment on above: Result Comment: Canc elled via OM: Order cancelled - Patient discharged Performed By: #### L 100.0500, L300.3900, L500.2500 #### [facility] [address] [place], [address] Basic Metabolic Profile (BMP) Normal 133-145 [facility] Comment on above: Result Comment: Canc elled via OM: Order cancelled - Patient discharged Performed By: #### L 100.0500, L300.3900, L500.2500 #### [facility] [address] [place], [address] CBC W Auto Differential pane l (Bld)on 12-23-2024 Basophils (Bld) [#/Vol] 0.07 10*3/uL Normal <0.11 [facility] Comment on above: Order Comment: Speci men Type: BLOOD SPECIMENOrdering Facility: [facility] Address: [address] [place] [address] Performed By: #### 5 7021-8 ####[facility] LABCLIA [id number] [place] [id number] [place] Basophils/100 WBC (Bld) 1.0 % Normal [facility] Comment on above: Order Comment: Speci men Type: BLOOD SPECIMENOrdering Facility: [facility] Address: [address] [place] [address] Performed By: #### 5 7021-8 ####[facility] LABCLIA [id number] [place] [id number] [place] Differential cell count method Nom (Bld) Auto Normal [facility] Comment on above: Order Comment: Speci men Type: BLOOD SPECIMENOrdering Facility: [facility] Address: [address] [place] [address] Performed By: #### 5 7021-8 ####[facility] LABCLIA [id number] [place] [id number] [place] Eosinophils (Bld) [#/Vol] 0.29 10*3/uL Normal <0.46 [facility] Comment on above: Order Comment: Speci men Type: BLOOD SPECIMENOrdering Facility: [facility] Address: [address] [place] [address] Performed By: #### 5 7021-8 ####[facility] LABCLIA [id number] [address], [place] [address] [place] Eosinophils/100 WBC (Bld) 4.0 % Normal [facility] Comment on above: Order Comment: Speci men Type: BLOOD SPECIMENOrdering Facility: [facility] Address: [address] [place] [address] Performed By: #### 5 7021-8 ####[facility] LABCLIA [id number] [address], [place] [address] [place] Erythrocyte distribution width (RBC) [Ratio] 15.9 % High 11.5-15.0 [facility] Comment on above: Order Comment: Speci men Type: BLOOD SPECIMENOrdering Facility: [facility] Address: [address] [place] [address] Performed By: #### 5 7021-8 ####[facility] LABIA [id number] [place] [address] [place] Hematocrit (Bld) [Volume fraction] 38.2 % Low 39.0-51.0 [facility] Comment on above: Order Comment: Speci men Type: BLOOD SPECIMENOrdering Facility: [facility] Address: [address] [place] [address] Performed By: #### 5 7021-8 ####[facility] LABCLIA [id number] [place] [address] [place] Hemoglobin (Bld) [Mass/Vol] 12.3 g/dL Low 13.0-17.0 [facility] Comment on above: Order Comment: Speci men Type: BLOOD SPECIMENOrdering Facility: [facility] Address: [address] [place] [address] Performed By: #### 5 7021-8 ####[facility] LABCLIA [id number] [place] [address] [place] Immature granulocytes (Bld) [#/Vol] 0.22 10*3/uL High <0.10 [facility] Comment on above: Order Comment: Speci men Type: BLOOD SPECIMENOrdering Facility: [facility] Address: [address] [place] [address] Performed By: #### 5 7021-8 ####[facility] LABCLIA [id number] [place] [address] [place] Immature granulocytes/100 WBC (Bld) 3.1 % Normal [facility] Comment on above: Order Comment: Speci men Type: BLOOD SPECIMENOrdering Facility: [facility] Address: [address] [place] [address] Performed By: #### 5 7021-8 ####[facility] LABCLIA [id number] [place] [address] [place] Lymphocytes (Bld) [#/Vol] 1.26 10*3/uL Normal 1.00-4.00 [facility] Comment on above: Order Comment: Speci men Type: BLOOD SPECIMENOrdering Facility: [facility] Address: [address] [place] [address] Performed By: #### 5 7021-8 ####[facility] LABCLIA [id number] [place] [address] [place] Lymphocytes/100 WBC (Bld) 17.5 % Normal [facility] Comment on above: Order Comment: Speci men Type: BLOOD SPECIMENOrdering Facility: [facility] Address: [address] [place] [address] Performed By: #### 5 7021-8 ####[facility] LABIA [id number] [place] [address] [place] MCH (RBC) [Entitic mass] 28.9 pg Normal 26.0-34.0 [facility] Comment on above: Order Comment: Speci men Type: BLOOD SPECIMENOrdering Facility: [facility] Address: [address] [place] [address] Performed By: #### 5 7021-8 ####[facility] LABCLIA [id number] [place] [address] [place] MCHC (RBC) [Mass/Vol] 32.2 g/dL Normal 30.5-36.0 [facility] Comment on above: Order Comment: Speci men Type: BLOOD SPECIMENOrdering Facility: [facility] Address: [address] [place] [address] Performed By: #### 5 7021-8 ####[facility] LABCLIA [id number] [place] [address] [place] MCV (RBC) [Entitic vol] 89.9 fL Normal 80.0-100.0 [facility] Comment on above: Order Comment: Speci men Type: BLOOD SPECIMENOrdering Facility: [facility] Address: [address] [place] [address] Performed By: #### 5 7021-8 ####[facility] LABCLIA [id number] [place] [address] [place] Monocytes (Bld) [#/Vol] 0.45 10*3/uL Normal <0.87 [facility] Comment on above: Order Comment: Speci men Type: BLOOD SPECIMENOrdering Facility: [facility] Address: [address] [place] [address] Performed By: #### 5 7021-8 ####[facility] LABCLIA [id number] [address] [place] Monocytes/100 WBC (Bld) 6.2 % Normal C [facility] Comment on above: Order Comment: Speci men Type: BLOOD SPECIMENOrdering Facility: [facility] Address: [address] [place] [address] Performed By: #### 5 7021-8 ####[facility] LABCLIA [id number] [place] [id number] [place] Neutrophils (Bld) [#/Vol] 4.92 10*3/uL Normal 1.45-7.50 [facility] Comment on above: Order Comment: Speci men Type: BLOOD SPECIMENOrdering Facility: [facility] Address: [address] [place] [address] Performed By: #### 5 7021-8 ####[facility] LABCLIA [id number] [place] [address] [place] Neutrophils/100 WBC (Bld) 68.2 % Normal [facility] Comment on above: Order Comment: Speci men Type: BLOOD SPECIMENOrdering Facility: [facility] Address: [address] [place] [address] Performed By: #### 5 7021-8 ####[facility] LABCLIA [id number] [place] [address] [place] Nucleated RBC (Bld) [#/Vol] 10*3/uL Normal <0.01 [facility] Comment on above: Order Comment: Speci men Type: BLOOD SPECIMENOrdering Facility: [facility] Address: [address] [place] [address] Performed By: #### 5 7021-8 ####[facility] LABCLIA [id number] [place] [address] [place] Nucleated RBC/100 WBC (Bld) [Ratio] 0.0 /100 WBC Normal [facility] Comment on above: Order Comment: Speci men Type: BLOOD SPECIMENOrdering Facility: [facility] Address: [address] [place] [address] Performed By: #### 5 7021-8 ####[facility] LABCLIA [id number] [place] [address] [place] Platelet mean volume (Bld) [Entitic vol] 10.0 fL Normal 9.0-12.7 [facility] Comment on above: Order Comment: Speci men Type: BLOOD SPECIMENOrdering Facility: [facility] Address: [address] [place] [address] Performed By: #### 5 7021-8 ####[facility] LABCLIA [id number] [place] [id number] [place] Platelets (Bld) [#/Vol] 333 10*3/uL Normal 150-400 [facility] Comment on above: Order Comment: Speci men Type: BLOOD SPECIMENOrdering Facility: [facility] Address: [address] [place] [address] Performed By: #### 5 7021-8 ####[facility] LABCLIA [id number] [place] [address] [place] RBC (Bld) [#/Vol] 4.25 10*6/uL Normal 4.20-6.00 [facility] Comment on above: Order Comment: Speci men Type: BLOOD SPECIMENOrdering Facility: [facility] Address: [address] [place] [address] Performed By: #### 5 7021-8 ####[facility] LABIA [id number] [place] [address] [place] WBC (Bld) [#/Vol] 7.21 10*3/uL Normal 3.70-11.00 [facility] Comment on above: Order Comment: Speci men Type: BLOOD SPECIMENOrdering Facility: [facility] Address: [address] [place] [address] Performed By: #### 5 7021-8 ####[facility] LABIA [id number] [place] [id number] [place] CBC W/Diff, Automatedon 11-30 Absolute Neut Normal 2.0-7.7 [facility] Comment on above: Result Comment: Canc elled via OM: Order cancelled - Patient discharged Performed By: #### L 100.0500, L300.3900, L500.2500 #### [facility] [address] [place], [address] HCT Normal 40-54 [facility] Comment on above: Result Comment: Canc elled via OM: Order cancelled - Patient discharged Performed By: #### L 100.0500, L300.3900, L500.2500 #### [facility] [address] [place], [address] HGB Normal 13.0-16.5 [facility] Comment on above: Result Comment: Canc elled via OM: Order cancelled - Patient discharged Performed By: #### L 100.0500, L300.3900, L500.2500 #### [facility] [address] [place], [address] MCH Normal 27.0-32.0 [facility] Comment on above: Result Comment: Canc elled via OM: Order cancelled - Patient discharged Performed By: #### L 100.0500, L300.3900, L500.2500 #### [facility] [address] [place], [address] MCHC Normal 32-36 [facility] Comment on above: Result Comment: Canc elled via OM: Order cancelled - Patient discharged Performed By: #### L 100.0500, L300.3900, L500.2500 #### [facility] [address] [place], [address] MCV Normal 80-94 [facility] Comment on above: Result Comment: Canc elled via OM: Order cancelled - Patient discharged Performed By: #### L 100.0500, L300.3900, L500.2500 #### [facility] [address] [place], [address] NEUT% Normal 47-70 [facility] Comment on above: Result Comment: Canc elled via OM: Order cancelled - Patient discharged Performed By: #### L 100.0500, L300.3900, L500.2500 #### [facility] [address] [place], [address] PLT Normal 150-450 [facility] Comment on above: Result Comment: Canc elled via OM: Order cancelled - Patient discharged Performed By: #### L 100.0500, L300.3900, L500.2500 #### [facility] [address] [place], [address] RBC Normal 4.6-6.2 [facility] Comment on above: Result Comment: Canc elled via OM: Order cancelled - Patient discharged Performed By: #### L 100.0500, L300.3900, L500.2500 #### [facility] [address] [place], [address] RDW CV Normal 11.6-14.6 [facility] Comment on above: Result Comment: Canc elled via OM: Order cancelled - Patient discharged Performed By: #### L 100.0500, L300.3900, L500.2500 #### [facility] [address] [place], [address] RDW SD Normal 35.1-43.9 [facility] Comment on above: Result Comment: Canc elled via OM: Order cancelled - Patient discharged Performed By: #### L 100.0500, L300.3900, L500.2500 #### [facility] [address] [place], [address] WBC Normal 4.4-11.0 [facility] Comment on above: Result Comment: Canc elled via OM: Order cancelled - Patient discharged Performed By: #### L 100.0500, L300.3900, L500.2500 #### [facility] [address] [place], [address] CNOVSPon 12-23-2024 CNOVSP Visit (SP) Office (HEMAMN) JUAQUIN KHALIL ([id number]) 1945 M Date Time Provider Department 12/23/24 10:30 AM TAMI CORADO HEMAMN During your visit today, we recorded the following information about you: Tami Corado MD 12/23/2024 1:50 PM Signed Initial Consult Note/ New Patient Note [facility] Juaquin Khalil ID: [id number] 12/23/2024 REFERRING PHYSICIAN: Alexander Ramirez [address] [facility] [address] PRIMARY CARE PHYSICIAN: Leanna Solares APRN Chief Complaint: CML History Of Present Illness: (4 elements) Mr. 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 He feels better now, but he was hospitalized last week. Look below foe detail hematology history. Hematolgic/Oncologic Hx: [facility]: White blood cells were noted to be increasing -07/13/2023: Bone marrow biopsy was done and showed hypercellular marrow more than 90%, increased left shifted granulopoiesis, no increased blasts, consistent with chronic phase CML. BCR-ABL FISH was detected positive at 96%. Interestingly, BCR-ABL PCR was positive at a low level of 0.018% -08/2023: Patient was started on imatinib he had fatigue and GI symptoms -10/11/2023: Patient was switched to Dasatinib and was subsequently stopped due to feeling depressed -11/12/2023: Patient initiated Nilotinib. He has some low energy -04/10/2024: BCR-ABL was undetected -07/23/2024: BCR-ABL was undetected. -11/20/2024: CBC showed white blood cells of 5.9 K/?l, hemoglobin of 12.6 g/dL, platelets of 192 K/?l. Sodium and potassium were normal. Creatinine was 0.8 mg/deciliter. 11/21/2024: BCR-ABL was undetected Past Mx/ Sx/ FHx/ SOC Hx: PAST MEDICAL HISTORY Diagnosis Date Benign hypertensive heart disease without heart failure CAD (coronary artery disease) HLD (hyperlipidemia) HTN (hypertension) Hypothyroidism ALLERGIES Allergen Reactions Vicodin [Hydrocodon* Shortness of Breath PAST SURGICAL HISTORY Procedure Laterality Date RPLCMT AORTIC VALVE OPN W/STENTLESS TISSUE VALVE 2001 FAMILY HISTORY Problem Relation Age of Onset Cancer Father Hypertension Sister Cancer Father SOCIAL HISTORY[1] # PMHx, PSHx, FHx and SHx were reviewed and updated as needed. Review Of Systems: (10 elements) Constitutional: No fever, positive chills, positive fatigue, positive anorexia Skin: No rash, no pruritis, no discoloration, no abnormal pigmentation Eyes: No visual disturbance, no itching, no burning ENMT: positive loss of hearing, no otalgia, positive tinnitus, no epistaxis, no odynophagia, positive dysphagia, no congestion, no drainage, no neck pain, no neck stiffnes. Respiratory: positive cough, positive sputum production, no hemoptysis, positive dyspnea, no wheezing Cardiovascular: positive chest pain, positive palpitations, no orthopnea, no PND Gastrointestinal: positive abdominal pain, positive nausea, no emesis, no diarrhea, no constipation, no hematemesis, no hematochezia, no melena, positive black stools from bleeding Gentiurinary: No dysuria, no hematuria, no urinary frequency, positive urinary urgency, positive urinary incontinence Neurological: positive headache, no confusion, no dizziness, positive gait imbalance, no numbness, no focal weakness, no tremors Psychiatry: No abnormal insight, no change in mental status Musculoskeletal: positive arthralgia, positive myalgia, no muscle stiffness. Endocrine: positive unexpected weight change, no polyuria, no polydipsia, no polyphagia. Hematological/ Lymphatic: No bleeding, no bruising, no lymphoadenopathy Current Medications: levothyroxine sodium(SYNTHROID 25 MCG TAB) Take one(1) tablet daily.for 2 weeks and then 2 tabas daily lisinopril-hydrochloro thiazide 10-12.5 mg ORAL Tab Take one(1) tablet daily. TOPROL XL 100 MG 24 HR TAB Take one(1) tablet daily. COUMADIN 4 MG TAB Take one (1) tablet every day. COMPOUNDED PRESCRIPTION Cholesterol Med - Pt can't remember the name of it Physical Exam: (2 bullets in 9 areas) There were no vitals taken for this visit. Performance Status: 3- Capable of only limited selfcare, confined to bed/chair > 50% of waking hrs. General appearance: alert, in no acute distress Skin: No rashes, no lumps Head: normocephalic, atraumatic Eyes/ Oropharynx: Anicteric sclera. Extraocular movements are intact. Oropharynx: MMM Neck: Supple, no adenopathy; no bruits Lungs: clear to auscultation, no wheezing or rhonchi Heart: RRR without murmur, gallop, or rubs. No ectopy Abdomen: Abdomen soft, no tenderness. No masses, organomegaly Extremities: Extremities normal. No deformities or e (more content not included)... Normal [facility] CONFIRM BLOOD TYPEon 025 ABO B Normal [facility] Comment on above: Order Comment: Speci men Type: BLOOD SPECIMEN Ordering Facility: [facility] Address: [address] [place] [address] Performed By: #### C ONABO #### [facility] BLOOD B[facility] CLIA [id number] [address] [place] [address] [place] Rh Nom (Bld) Negative Normal [facility] Comment on above: Order Comment: Speci men Type: BLOOD SPECIMEN Ordering Facility: [facility] Address: [address] [place] [address] Performed By: #### C ONABO #### [facility] MA[facility] BLOOD BANK CLIA [id number] [address] [place] [address] [place] Comprehensive metabolic 2000 panelon 12-23-2024 Albumin [Mass/Vol] 3.5 g/dL Low 3.9-4.9 [facility] Comment on above: Order Comment: Speci men Type: BLOOD SPECIMENOrdering Facility: [facility] Address: [address] [place] [address] Performed By: #### 2 4323-8, 2532-0, 6-3 ####[facility] LABCLIA [id number] [place] [id number] [place] ALP [Catalytic activity/Vol] 213 U/L High 38-113 [facility] Comment on above: Order Comment: Speci men Type: BLOOD SPECIMENOrdering Facility: [facility] Address: [address] [place] [address] Performed By: #### 2 4323-8, 2532-0, 3015-3 ####[facility] LABCLIA [id number] [place] [address] [place] ALT [Catalytic activity/Vol] 59 U/L High 10-54 [facility] Comment on above: Order Comment: Speci men Type: BLOOD SPECIMENOrdering Facility: [facility] Address: [address] [place] [address] Performed By: #### 2 4323-8, 2531-0, 3015-3 ####[facility] LABCLIA [id number] [place] [id number] [place] Anion gap [Moles/Vol] 11 mmol/L Normal 8-15 [facility] Comment on above: Order Comment: Speci men Type: BLOOD SPECIMENOrdering Facility: [facility] Address: [address] [place] [address] Performed By: #### 2 4323-8, 2531-0, 3015-3 ####[facility] LABCLIA [id number] [address] [address] [place] AST [Catalytic activity/Vol] 31 U/L Normal 14-40 [facility] Comment on above: Order Comment: Speci men Type: BLOOD SPECIMENOrdering Facility: [facility] Address: [address] [place] [address] Performed By: #### 2 4323-8, 2-0, 6-3 ####[facility] LABCLIA [id number] [address] [address] [place] Bilirubin [Mass/Vol] 1.5 mg/dL High 0.2-1.3 [facility] Comment on above: Order Comment: Speci men Type: BLOOD SPECIMENOrdering Facility: [facility] Address: [address] [place], [place] [address] Performed By: #### 2 4323-8, 2532-0, 3016-3 ####[facility] LABCLIA [id number] [address] [address] [place] Calcium [Mass/Vol] 8.9 mg/dL Normal 8.5-10.2 [facility] Comment on above: Order Comment: Speci men Type: BLOOD SPECIMENOrdering Facility: [facility] Address: [address] [place] [address] Performed By: #### 2 4323-8, 2531-0, 6-3 ####[facility] LABCLIA [id number] [address] [address] [place] Chloride [Moles/Vol] 99 mmol/L Normal 98-107 [facility] Comment on above: Order Comment: Speci men Type: BLOOD SPECIMENOrdering Facility: [facility] Address: [address] [place], [place] [address] Performed By: #### 2 4323-8, 2531-0, 6-3 ####[facility] LABCLIA [id number] [address] [address] [place] CO2 [Moles/Vol] 29 mmol/L Normal 22-30 [facility] Comment on above: Order Comment: Speci men Type: BLOOD SPECIMENOrdering Facility: [facility] Address: [address] [place], [place] [address] Performed By: #### 2 4323-8, 2-0, 3016-3 ####[facility] LABCLIA [id number] [address] [address] [place] Creatinine [Mass/Vol] 0.85 mg/dL Normal 0.73-1.22 [facility] Comment on above: Order Comment: Bautista allen Type: BLOOD SPECIMENOrdering Facility: [facility] Address: [address] [place] [address] Performed By: #### 2 4323-8, 2532-0, 3016-3 ####[facility] LABIA [id number] [place] [address] [place] eGFRcr SerPlBld CKD-EPI 2020 88 mL/min/1.73m??? Normal >=60 [facility] Comment on above: Order Comment: Bautista allen Type: BLOOD SPECIMENOrdering Facility: [facility] Address: [address] [place] [address] Result Comment: Elsa mated Glomerular Filtration Rate (eGFR) is calculated using the 2020 CKD-EPI creatinine equation. This equation utilizes serum creatinine, sex, and age as parameters. The creatinine assay has traceable calibration to isotope dilution-mass spectrometry. Refer to KDIGO guidelines for clinical interpretation. In patients with unstable renal function, e.g. those with acute kidney injury, the eGFR may not accurately reflect actual GFR. Performed By: #### 2 4323-8, 2532-0, 3016-3 ####[facility] LABIA [id number] [place] [id number] [place] Glucose [Mass/Vol] 121 mg/dL High 74-99 [facility] Comment on above: Order Comment: Bautista allen Type: BLOOD SPECIMENOrdering Facility: [facility] Address: [address] [place] [address] Result Comment: The [place] [employer] (ADA) provides guidance for cutoff values for fasting glucose and random glucose. The ADA defines fasting as no caloric intake for at least 8 hours. Fasting plasma glucose results between 100 to 125 mg/dL indicate increased risk for diabetes (prediabetes). Fasting plasma glucose results greater than or equal to 126 mg/dL meet the criteria for diagnosis of diabetes. In the absence of unequivocal hyperglycemia, results should be confirmed by repeat testing. In a patient with classic symptoms of hyperglycemia or hyperglycemic crisis, random plasma glucose results greater than or equal to 200 mg/dL meet the criteria for diagnosis of diabetes. Reference: Standards of Medical Care in Diabetes 2016, [place] [employer]. Diabetes Care. 2016.39(Suppl 1). Performed By: #### 2 4323-8, 2532-0, 6-3 ####[facility] LABCLIA [id number] [address] [address] [place] Potassium [Moles/Vol] 4.1 mmol/L Normal 3.7-5.1 [facility] Comment on above: Order Comment: Speci men Type: BLOOD SPECIMENOrdering Facility: [facility] Address: [address] [place] [address] Performed By: #### 2 4323-8, 2-0, 3 ####[facility] LABCLIA [id number] [address] [address] [place] Protein [Mass/Vol] 6.2 g/dL Low 6.3-8.0 [facility] Comment on above: Order Comment: Speci men Type: BLOOD SPECIMENOrdering Facility: [facility] Address: [address] [place] [address] Performed By: #### 2 4323-8, 2531-0, 3 ####[facility] LABCLIA [id number] [address] [address] [place] Sodium [Moles/Vol] 139 mmol/L Normal 136-144 [facility] Comment on above: Order Comment: Speci men Type: BLOOD SPECIMENOrdering Facility: [facility] Address: [address] [place] [address] Performed By: #### 2 4323-8, 2531-0, 3015-3 ####[facility] LABCLIA [id number] [address] [address] [place] Urea nitrogen [Mass/Vol] 9 mg/dL Normal 9-24 [facility] Comment on above: Order Comment: Speci men Type: BLOOD SPECIMENOrdering Facility: [facility] Address: [address] [place] [address] Performed By: #### 2 4323-8, 2532-0, 3016-3 ####[facility] LABCLIA [id number] [place] [address] [place] Culture, Blood (WB)on 2024 CUB Blood cultures x2, from two different sites No growth in [address] [facility] Comment on above: Performed By: #### L 100.0500, L300.3900, L500.2500 #### [facility] [address] [place], [place], [address] LDH SerPl-cCncon 12-23-2024 LDH [Catalytic activity/Vol] 214 U/L Normal 135-225 [facility] Comment on above: Order Comment: Speci men Type: BLOOD SPECIMENOrdering Facility: [facility] Address: [address] [place] [address] Performed By: #### 2 4323-8, 2532-0, 3016-3 ####[facility] LABCLIA [id number] [place] [address] [place] LPa SerPl-mCncon 12-23-2024 Lipoprotein a [Mass/Vol] 141 mg/dL High <30 [facility] Comment on above: Order Comment: Speci men Type: BLOOD SPECIMENOrdering Facility: [facility] Address: [address] [place] [address] Performed By: #### 1 0835-7 ####[facility] LABIA [id number] [place] [id number] [place] PT panel Coag (PPP)on 2024 INR Coag (PPP) [Relative time] 1.6 {INR} High 0.9-1.3 [facility] Comment on above: Order Comment: Speci men Type: BLOOD SPECIMENOrdering Facility: [facility] Address: [address] [place] [address] Result Comment: Sharmila min K Antagonist (VKA) Therapeutic Range: INR 2 to 3 (Target INR of 2.5) Note: For patients treated with VKA drugs, such as warfarin, the [place] [employer] 2012 Guideline recommends a therapeutic INR range of 2 to 3 (target INR of 2.5). This recommendation includes high-risk patients with antiphospholipid syndrome with previous arterial or venous thromboembolism, current-generation mechanical or bioprosthetic aortic heart valve replacement. Note: Patients with mechanical aortic valve replacement and additional risk factors for thromboembolic events (atrial fibrillation, previous thromboembolism, LV dysfunction, hypercoagulable conditions) or an older generation mechanical AVR (i.e., ball in-Cage) or any mechanical MVR should have a INR therapeutic range of 2.5 to 3.5 (target INR of 3). Marilynn BOLAND, et al. Chest 2012, 141:7S-47S Sangeetha RA, et al. [facility] 2017, 70: 252-289 Performed By: #### 1 4979-9, 65790-4 ####[facility] [id number] [place] [address] [place] PT Coag (PPP) [Time] 16.8 s High 9.7-13.0 [facility] Comment on above: Order Comment: Speci men Type: BLOOD SPECIMENOrdering Facility: [facility] Address: [address] [place] [address] Performed By: #### 1 4979-9, 48030-2 ####[facility] [id number] [place] [id number] [place] TSH SerPl-aCncon 12-23-2024 TSH Qn 3.170 m[IU]/L Normal 0.270-4.200 [facility] Comment on above: Order Comment: Speci men Type: BLOOD SPECIMENOrdering Facility: [facility] Address: [address] [place] [address] Performed By: #### 2 4323-8, 2532-0, 3016-3 ####[facility] LABCLIA [id number] [place] [id number] [place] TYPE AND SCREEN,30 DAYon ABO B Normal [facility] Comment on above: Order Comment: Speci men Type: BLOOD SPECIMEN Ordering Facility: [facility] Address: [address] [place] [address] Performed By: #### T SCR30 #### CC [facility] BLOOD BANK CLIA [id number] [address] [place] [address] [place] Rh Nom (Bld) Negative Normal [facility] Comment on above: Order Comment: Speci men Type: BLOOD SPECIMEN Ordering Facility: [facility] Address: [address] [place] [address] Performed By: #### T SCR30 #### CC [facility] BLOOD BANK CLIA [id number] [address] [place] [address] [place] URINALYSIS, DIPSTICK ONLYon 12-23-2024 Bilirubin Ql (U) 1+ Abnormal Negative [facility] Comment on above: Order Comment: Speci men Type: URINE SPECIMENOrdering Facility: [facility] Address: [address] [place] [address] Result Comment: Sugg est correlation with clinical findings and serum bilirubin if clinically indicated. Performed By: #### U A ####[facility] LABCLIA [id number] [place] [address] [place] Clarity (Unsp spec) Cloudy Abnormal Clear [facility] Comment on above: Order Comment: Speci men Type: URINE SPECIMENOrdering Facility: [facility] Address: [address] [place] [address] Performed By: #### U A ####[facility] LABCLIA [id number] [place] [id number] [place] Color (U) Dark Yellow Abnormal Yellow [facility] Comment on above: Order Comment: Speci men Type: URINE SPECIMENOrdering Facility: [facility] Address: [address] [place] [address] Performed By: #### U A ####[facility] LABCLIA [id number] [address] [place] [address] [place] Glucose Test strip (U) [Mass/Vol] Negative Normal Negative [facility] Comment on above: Order Comment: Speci men Type: URINE SPECIMENOrdering Facility: [facility] Address: [address] [place] [address] Performed By: #### U A ####[facility] LABCLIA [id number] [facility] [address] [place] [address] [place] Hemoglobin Ql (U) Negative Normal Negative [facility] Comment on above: Order Comment: Speci men Type: URINE SPECIMENOrdering Facility: [facility] Address: [address] [place] [address] Performed By: #### U A ####[facility] LABCLIA [id number] [address] [place] [address] [place] Ketones Ql (U) Negative Normal Negative [facility] Comment on above: Order Comment: Speci men Type: URINE SPECIMENOrdering Facility: [facility] Address: [address] [place] [address] Performed By: #### U A ####[facility] LABCLIA [id number] [address], [facility] [place] Leukocyte esterase Test strip Ql (U) Trace Abnormal Negative [facility] Comment on above: Order Comment: Speci men Type: URINE SPECIMENOrdering Facility: [facility] Address: [address] [place] [address] Performed By: #### U A ####[facility] LABCLIA [id number] [address] [place] [address] [place] Nitrite Ql (U) Negative Normal Negative [facility] Comment on above: Order Comment: Speci men Type: URINE SPECIMENOrdering Facility: [facility] Address: [address] [place] [address] Performed By: #### U A ####[facility] LABIA [id number] [place] [address] [place] pH (U) 5.5 [pH] Normal 5.0-8.0 [facility] Comment on above: Order Comment: Speci men Type: URINE SPECIMENOrdering Facility: [facility] Address: [address] [place] [address] Performed By: #### U A ####[facility] LABIA [id number] [place] [address] [place] Protein (U) [Mass/Vol] 1+ Abnormal Negative Cl [facility] Comment on above: Order Comment: Speci men Type: URINE SPECIMENOrdering Facility: [facility] Address: [address] [place] [address] Performed By: #### U A ####[facility] LABIA [id number] [place] [address] [place] Specific gravity (U) [Rel density] 1.021 Normal 1.005-1.030 [facility] Comment on above: Order Comment: Speci men Type: URINE SPECIMENOrdering Facility: [facility] Address: [address] [place] [address] Performed By: #### U A ####[facility] LABIA [id number] [place] [address] [place] Urobilinogen Ql (U) 1.0 EU/dL Normal 0.2-1.0 EU/dL [facility] Comment on above: Order Comment: Speci men Type: URINE SPECIMENOrdering Facility: [facility] Address: [address] [place] [address] Performed By: #### U A ####[facility] LABIA [id number] [place] [address] [place] US CAROTID ARTERIES [facility]on 12-23-2024 CAROTID ARTERIES [facility] Non-Invasive Vascular Laboratory [facility] J35 Carotid Duplex Bilateral/Complete Date of service/time: 12/23/2024 1:28:06 PM Name: JUAQUIN KHALIL Date of : 1945 Age: 79 years Gender: M Clinical Indication Pre op for cardiac surgery. TECHNIQUE -------- A carotid duplex ultrasound examination was performed, including grayscale imaging and color Doppler and spectral Doppler examination of the below mentioned arteries. FINDINGS -------- RIGHT SIDE Common carotid artery: Origin: PSV: 99 cm/s. EDV: 15 cm/s. Proximal: PSV: 115 cm/s. EDV: 13 cm/s. Mid: PSV: 107 cm/s. EDV: 13 cm/s. Distal: PSV: 77 cm/s. EDV: 13 cm/s. Mild heterogeneous plaque from mid to distal. Internal carotid artery: Origin: PSV: 66 cm/s. EDV: 16 cm/s. Proximal: PSV: 82 cm/s. EDV: 24 cm/s. Mid: PSV: 84 cm/s. EDV: 31 cm/s. Distal: PSV: 82 cm/s. EDV: 25 cm/s. Mild heterogeneous plaque from origin to proximal. ICA/CCA Ratio: 1.1 External carotid artery: Proximal: PSV: 110 cm/s. EDV: 0 cm/s. Subclavian artery: Proximal: PSV: 167 cm/s. EDV: 0 cm/s. Innominate artery: PSV: 149 cm/s. EDV: 0 cm/s. Vertebral artery: PSV: 44 cm/s. EDV: 11 cm/s. LEFT SIDE Common carotid artery: Proximal: PSV: 101 cm/s. EDV: 12 cm/s. Mid: PSV: 79 cm/s. EDV: 11 cm/s. Distal: PSV: 80 cm/s. EDV: 12 cm/s. Mild heterogeneous plaque at distal. Internal carotid artery: Origin: PSV: 76 cm/s. EDV: 14 cm/s. Proximal: PSV: 71 cm/s. EDV: 21 cm/s. Mid: PSV: 56 cm/s. EDV: 21 cm/s. Distal: PSV: 83 cm/s. EDV: 26 cm/s. Mild heterogeneous calcified and shadowing plaque at origin. ICA/CCA Ratio: 0.9 External carotid artery: Proximal: PSV: 84 cm/s. EDV: 0 cm/s. Subclavian artery: Proximal: PSV: 139 cm/s. EDV: 0 cm/s. Vertebral artery: PSV: 39 cm/s. EDV: 9 cm/s. IMPRESSION Please note: the new carotid interpretation criteria are used as recommended by [employer]. RIGHT SIDE Multiple complex, irregular structures noted in the right thyroid with the largest measuring 2.5 x 1.2 x 1.0 cm. May wish dedicated thyroid ultrasound if clinically indicated. Common carotid artery: Plaque visualized without evidence of hemodynamically significant stenosis. Internal carotid artery: <50% stenosis consistent with mild carotid artery disease. Vertebral artery: Patent and antegrade flow noted. Innominate artery: Turbulent flow noted, cannot rule out more proximal stenosis. May wish other means of evaluation. LEFT SIDE Multiple complex, irregular structures noted in the left thyroid with the largest measuring 1.8 x 1.1 x 0.78 cm. May wish dedicated thyroid ultrasound if clinically indicated. Common carotid artery: Plaque visualized without evidence of hemodynamically significant stenosis. Internal carotid artery: <50% stenosis consistent with mild carotid artery disease. Vertebral artery: Patent and antegrade flow noted. Technologist: Laurie Mar T Ordering physician: ALEXANDER RAMIREZ Interpreting physician: Jad Gonzalez MD Final CC [facility] : [id number] csSISUID See Link below for Image Normal [facility] US LEG VEIN MAP [facility]o n 12-23-2024 US LEG VEIN MAP [facility] Non-Invasive Vascular Laboratory [facility] J35 Lower Extremity Vein Mapping Bilateral/Complete Date of service/time: 12/23/2024 2:01:07 PM Name: JUAQUIN KHALIL Date of : 1945 Age: 79 years Gender: M Clinical Indication Pre-op open heart surgery. FINDINGS -------- RIGHT Great saphenous vein: Saphenofemoral junction: 5.3 mm Proximal thigh: 3.7 mm Mid thigh: 3.1 mm Distal thigh: 3.1 mm Knee: 2.8 mm Proximal calf: 3.5 mm Mid calf: 2.9 mm LEFT Great saphenous vein: Saphenofemoral junction: 6.6 mm Proximal thigh: 3.8 mm Mid thigh: 3.3 mm Distal thigh: 3.4 mm Knee: 3.4 mm Proximal calf: 3.2 mm IMPRESSION RIGHT Great saphenous vein: Patent with measurements as indicated above. 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 Branches noted at the proximal thigh, at the mid thigh, at the distal thigh and at the proximal calf. 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 LEFT Great saphenous vein: Patent with measurements as indicated above. 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 Branches noted at the mid thigh and at the proximal calf. 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 Technologist: Laurie Mar T Ordering physician: ALEXANDER RAMIREZ Interpreting physician: Jad Gonzalez MD Final CC [facility] : [id number] csSISUID See Link below for Image Normal [facility] US MAMMARY ARTERY [facility] LA Bon 12-23-2024 US MAMMARY ARTERY [facility] Non-Invasive Vascular Laboratory [facility] J35 Artery Mapping Study Bilateral/Complete Date of service/time: 12/23/2024 1:16:04 PM Name: JUAQUIN KHALIL Date of : 1945 Age: 79 years Gender: M Clinical Indication Pre-op open heart surgery. FINDINGS -------- Right systolic blood pressure: 139 mmHg Left systolic blood pressure: 137 mmHg RIGHT Mammary artery Proximal: 3.9 mm. PSV 122 cm/s. EDV 15 cm/s. Monophasic, intermediate resistive waveform. Mid: 3.7 mm. PSV 109 cm/s. EDV 19 cm/s. Monophasic, intermediate resistive waveform. Distal: 3.7 mm. PSV 76 cm/s. EDV 11 cm/s. Monophasic, intermediate resistive waveform. LEFT Mammary artery Proximal: 3.9 mm. PSV 125 cm/s. EDV 18 cm/s. Monophasic, intermediate resistive waveform. Mid: 3.7 mm. PSV 102 cm/s. EDV 15 cm/s. Monophasic, intermediate resistive waveform. Distal: 3.0 mm. PSV 99 cm/s. EDV 22 cm/s. Monophasic, intermediate resistive waveform. IMPRESSION No significant discrepancy in brachial systolic blood pressure measurements from right to left sides. RIGHT Measurements listed above; patent mammary artery. LEFT Measurements listed above; patent mammary artery. Technologist: Laurie Mra RVT Ordering physician: ALEXANDER RAMIREZ Interpreting physician: Jad Gonzalez MD Final CC [employer] [facility] : [id number] csSISUID See Link below for Image Normal [facility] US RADIAL ARTERY MAP SAPNA VAS LABon 12-23-2024 US RADIAL ARTERY MAP SAPNA VAS LAB Non-Invasive Vascular Laboratory [facility] J35 Artery Mapping Study Bilateral/Complete Date of service/time: 12/23/2024 12:58:16 PM Name: JUAQUIN KHALIL Date of : 1945 Age: 79 years Gender: M Clinical Indication Pre-op open heart surgery. FINDINGS -------- RIGHT Radial artery Origin: 3.2 mm. PSV 85.0 cm/s. EDV 0.0 cm/s. Multiphasic waveform. Proximal: 3.2 mm. PSV 75 cm/s. EDV 0 cm/s. Multiphasic waveform. Mid: 3.0 mm. PSV 68 cm/s. EDV 0 cm/s. Multiphasic waveform. Distal: 2.3 mm. PSV 74 cm/s. EDV 0 cm/s. Multiphasic waveform. Brachial artery at distal: PSV 84 cm/s. EDV 0 cm/s. Multiphasic waveform. Ulnar artery at distal: PSV 46 cm/s. EDV 0 cm/s. Multiphasic waveform. LEFT Radial artery Origin: 3.0 mm. PSV 72 cm/s. EDV 0 cm/s. Multiphasic waveform. Proximal: 2.9 mm. PSV 77 cm/s. EDV 0 cm/s. Multiphasic waveform. Mid: 2.6 mm. PSV 71 cm/s. EDV 0 cm/s. Multiphasic waveform. Distal: 2.5 mm. PSV 63 cm/s. EDV 0 cm/s. Multiphasic waveform. Brachial artery at distal: PSV 63 cm/s. EDV 0 cm/s. Multiphasic waveform. Ulnar artery at distal: PSV 59 cm/s. EDV 0 cm/s. Multiphasic waveform. IMPRESSION RIGHT Measurements listed above; patent radial artery. Measurements listed above; patent brachial artery. Patent vessel at distal. Measurements listed above; patent ulnar artery. Patent vessel at distal. Compression of the radial artery does not compromise flow to the digits. LEFT Measurements listed above; patent radial artery. Measurements listed above; patent brachial artery. Patent at distal. Measurements listed above; patent ulnar artery. Patent at distal. Compression of the radial artery does not compromise flow to the digits. Technologist: Laurie Mar RVT Ordering physician: ALEXANDER RAMIREZ Interpreting physician: Jad Gonzalez MD Final CC [employer] [facility] : [id number] csSISUID See Link below for Image Normal [facility] aPTT PPPon 12-23-2024 aPTT Coag (PPP) [Time] 34.7 s High 23.0-32.4 Cl [facility] Comment on above: Order Comment: Speci men Type: BLOOD SPECIMENOrdering Facility: [facility] Address: [address] [place] [address] Performed By: #### 1 4979-9, 51227-9 ####[facility] LABCLIA [id number] [place] [address] [place] Basic Metabolic Profile (BMP )on 12-22-2024 BUN Normal 4-19 [facility] Comment on above: Result Comment: Canc elled via OM: Order cancelled - Patient discharged Performed By: #### L 100.0100, L500.2500 #### [facility] [address] [place], [address] BUN/CRE Normal 10-20 [facility] Comment on above: Result Comment: Canc elled via OM: Order cancelled - Patient discharged Performed By: #### L 100.0100, L500.2500 #### [facility] [address] [place], [address] Calcium Normal 7.6-11.0 [facility] Comment on above: Result Comment: Canc elled via OM: Order cancelled - Patient discharged Performed By: #### L 100.0100, L500.2500 #### [facility] [address] [place], [address] CL Normal 98-108 [facility] Comment on above: Result Comment: Canc elled via OM: Order cancelled - Patient discharged Performed By: #### L 100.0100, L500.2500 #### [facility] [address] [place], [address] CO2 Normal 21.0-32.0 [facility] Comment on above: Result Comment: Canc elled via OM: Order cancelled - Patient discharged Performed By: #### L 100.0100, L500.2500 #### [facility] [address] [place], [address] CREAT,SERUM Normal 0.70-1.20 [facility] Comment on above: Result Comment: Canc elled via OM: Order cancelled - Patient discharged Performed By: #### L 100.0100, L500.2500 #### [facility] [address] [place], [address] eGFR Normal >60 [facility] Comment on above: Result Comment: Canc elled via OM: Order cancelled - Patient discharged Performed By: #### L 100.0100, L500.2500 #### [facility] [address] [place], [address] GAP Normal 5-15 [facility] Comment on above: Result Comment: Canc elled via OM: Order cancelled - Patient discharged Performed By: #### L 100.0100, L500.2500 #### [facility] [address] [place], [address] GLU Normal 70-99 [facility] Comment on above: Result Comment: Canc elled via OM: Order cancelled - Patient discharged Performed By: #### L 100.0100, L500.2500 #### [facility] [address] [place], [address] Potassium Normal 3.3-5.1 [facility] Comment on above: Result Comment: Canc elled via OM: Order cancelled - Patient discharged Performed By: #### L 100.0100, L500.2500 #### [facility] [address] [place], [address] Basic Metabolic Profile (BMP) Normal 133-145 [facility] Comment on above: Result Comment: Canc elled via OM: Order cancelled - Patient discharged Performed By: #### L 100.0100, L500.2500 #### [facility] [address] [place], [address] CBC W/Diff, Automatedon 08-2 Absolute Neut Normal 2.0-7.7 [facility] Comment on above: Result Comment: Canc elled via OM: Order cancelled - Patient discharged Performed By: #### L 100.0100, L500.2500 #### [facility] [address] [place], [address] HCT Normal 40-54 [facility] Comment on above: Result Comment: Canc elled via OM: Order cancelled - Patient discharged Performed By: #### L 100.0100, L500.2500 #### [facility] [address] [place], [address] HGB Normal 13.0-16.5 [facility] Comment on above: Result Comment: Canc elled via OM: Order cancelled - Patient discharged Performed By: #### L 100.0100, L500.2500 #### [facility] [address] [place], [address] MCH Normal 27.0-32.0 [facility] Comment on above: Result Comment: Canc elled via OM: Order cancelled - Patient discharged Performed By: #### L 100.0100, L500.2500 #### [facility] [address] [place], [address] MCHC Normal 32-36 [facility] Comment on above: Result Comment: Canc elled via OM: Order cancelled - Patient discharged Performed By: #### L 100.0100, L500.2500 #### [facility] [address] [place], [address] MCV Normal 80-94 [facility] Comment on above: Result Comment: Canc elled via OM: Order cancelled - Patient discharged Performed By: #### L 100.0100, L500.2500 #### [facility] [address] [place], [address] NEUT% Normal 47-70 [facility] Comment on above: Result Comment: Canc elled via OM: Order cancelled - Patient discharged Performed By: #### L 100.0100, L500.2500 #### [facility] [address] [place], [address] PLT Normal 150-450 [facility] Comment on above: Result Comment: Canc elled via OM: Order cancelled - Patient discharged Performed By: #### L 100.0100, L500.2500 #### [facility] [address] [place], [address] RBC Normal 4.6-6.2 [facility] Comment on above: Result Comment: Canc elled via OM: Order cancelled - Patient discharged Performed By: #### L 100.0100, L500.2500 #### [facility] [address] [place], [address] RDW CV Normal 11.6-14.6 [facility] Comment on above: Result Comment: Canc elled via OM: Order cancelled - Patient discharged Performed By: #### L 100.0100, L500.2500 #### [facility] [address] [place], [address] RDW SD Normal 35.1-43.9 [facility] Comment on above: Result Comment: Canc elled via OM: Order cancelled - Patient discharged Performed By: #### L 100.0100, L500.2500 #### [facility] [address] [place], [address] WBC Normal 4.4-11.0 [facility] Comment on above: Result Comment: Canc elled via OM: Order cancelled - Patient discharged Performed By: #### L 100.0100, L500.2500 #### [facility] [address] [place], [address] Absolute lymphocyte countOrd ered By: Brinda Duong on 12-21-2024 Lymphocytes Auto (Unsp spec) [#/Vol] 0.89 10*3/uL 0.83-4.51 [facility] Absolute neutrophil countOrd ered By: Brinda Duong on 12-21-2024 Neutrophils (Bld) [#/Vol] 4.5 10*3/uL 2.0-7.7 [facility] Anion gap in Serum or Plasma Ordered By: Brinda Duong on 12-21-2024 Anion gap [Moles/Vol] 10 mmol/L 5-15 [facility] Automated lymphocyte count a s percentage of total leukocytesOrdered By: Brinda Duong on 12-21-2024 Lymphocytes/100 WBC Auto (Unsp spec) 14.3 % Low 19-41 [facility] BUN/creatinine ratioOrdered By: Brinda Duong on 12-21-2024 Urea nitrogen/Creatinine [Mass ratio] 11.7 mg/mg - [facility] Basic Metabolic Profile (BMP )on 12-21-2024 BUN/CRE 11.7 RATIO Normal - [facility] Comment on above: Performed By: #### L 500.2500, L100.0100 #### [facility] [address] [place], [address] Calcium [Mass/Vol] 8.3 mg/dL Normal 7.6-11.0 [facility] Comment on above: Performed By: #### L 500.2500, L100.0100 #### [facility] [address] [place], [address] Chloride [Moles/Vol] 100 mmol/L Normal 98-108 [facility] Comment on above: Performed By: #### L 500.2500, L100.0100 #### [facility] [address] [place], [address] CO2 [Moles/Vol] 27.1 mmol/L Normal 21.0-32.0 [facility] Comment on above: Performed By: #### L 500.2500, L100.0100 #### [facility] [address] [place], [address] Creatinine [Mass/Vol] 0.67 mg/dL Low 0.70-1.20 [facility] Comment on above: Performed By: #### L 500.2500, L100.0100 #### [facility] [address] [place], [address] ECRCL 88.53 ml/min Normal 50-250 [facility] Comment on above: Performed By: #### L 500.2500, L100.0100 #### [facility] [address] [place], [address] GAP 10 Normal 5-15 [facility] Comment on above: Performed By: #### L 500.2500, L100.0100 #### [facility] [address] [place], [address] GFR/1.73 sq M.predicted among non-blacks MDRD (S/P/Bld) [Vol rate/Area] 95 mL/min/{1.73_m2} Normal >60 [facility] Comment on above: Result Comment: mL/m in/1.73m2 CKD-EPI Creatinine Equation (2020) Performed By: #### L 500.2500, L100.0100 #### [facility] [address] [place], [address] Glucose [Mass/Vol] 101 mg/dL High 70-99 [facility] Comment on above: Performed By: #### L 500.2500, L100.0100 #### [facility] [address] [place], [address] Potassium [Moles/Vol] 3.4 mmol/L Normal 3.3-5.1 [facility] Comment on above: Performed By: #### L 500.2500, L100.0100 #### [facility] [address] [place], [address] Sodium [Moles/Vol] 137 mmol/L Normal 133-145 [facility] Comment on above: Performed By: #### L 500.2500, L100.0100 #### [facility] [address] [place], [address] Urea nitrogen [Mass/Vol] 8 mg/dL Normal 4-19 [facility] Comment on above: Performed By: #### L 500.2500, L100.0100 #### [facility] [address] [place], [address] Basophil percentageOrdered B y: Brinda Duong on 12-21-2024 Basophils/100 WBC (Bld) 0.6 % 0-1 [facility] CBC W/Diff, Automatedon 11-30 Absolute Lymph 0.89 X10 3/uL Normal 0.83-4.51 [facility] Comment on above: Performed By: #### L 500.2500, L100.0100 #### [facility] [address] [place], [address] Absolute Neut 4.5 X10 3/uL Normal 2.0-7.7 [facility] Comment on above: Performed By: #### L 500.2500, L100.0100 #### [facility] [address] [place], [address] Basophils/100 WBC (Bld) 0.6 % Normal 0-1 [facility] Comment on above: Performed By: #### L 500.2500, L100.0100 #### [facility] [address] [place], [address] Eosinophils/100 WBC (Bld) 3.0 % Normal 0-5 [facility] Comment on above: Performed By: #### L 500.2500, L100.0100 #### [facility] [address] [place], [address] Erythrocyte distribution width (RBC) [Ratio] 15.7 % High 11.6-14.6 [facility] Comment on above: Performed By: #### L 500.2500, L100.0100 #### [facility] [address] [place], [address] Hematocrit (Bld) [Volume fraction] 34.8 % Low 40-54 [facility] Comment on above: Performed By: #### L 500.2500, L100.0100 #### [facility] [address] [place], [address] Hemoglobin (Bld) [Mass/Vol] 11.6 g/dL Low 13.0-16.5 [facility] Comment on above: Performed By: #### L 500.2500, L100.0100 #### [facility] [address] [place], [address] IG% 1.300 High 0.0-0.9 [facility] Comment on above: Result Comment: IG% - Immature Granulocytes (promyelocytes, myelocytes and metamyelocytes) > 1% indicates that a LEFT SHIFT is Present. Performed By: #### L 500.2500, L100.0100 #### [facility] [address] [place], [address] Lymphocytes/100 WBC (Bld) 14.3 % Low 19-41 [facility] Comment on above: Performed By: #### L 500.2500, L100.0100 #### [facility] [address] [place], [address] MCH (RBC) [Entitic mass] 29.3 pg Normal 27.0-32.0 [facility] Comment on above: Performed By: #### L 500.2500, L100.0100 #### [facility] [address] [place], [address] MCHC (RBC) [Mass/Vol] 33.3 g/dL Normal 32-36 [facility] Comment on above: Performed By: #### L 500.2500, L100.0100 #### [facility] [address] [place], [address] MCV (RBC) [Entitic vol] 87.9 fL Normal 80-94 [facility] Comment on above: Performed By: #### L 500.2500, L100.0100 #### [facility] [address] [place], [address] Monocytes/100 WBC (Bld) 8.0 % Normal 0-10 [facility] Comment on above: Performed By: #### L 500.2500, L100.0100 #### [facility] [address] [place], [address] Neutrophils/100 WBC (Bld) 72.8 % High 47-70 [facility] Comment on above: Performed By: #### L 500.2500, L100.0100 #### [facility] [address] [place], [address] Nucleated RBC (Bld) [#/Vol] 0 10*3/uL Normal 0-5 [facility] Comment on above: Performed By: #### L 500.2500, L100.0100 #### [facility] [address] [place], [address] Platelet mean volume (Bld) [Entitic vol] 9.6 fL Normal 6.2-12.0 [facility] Comment on above: Performed By: #### L 500.2500, L100.0100 #### [facility] [address] [place], [address] Platelets (Bld) [#/Vol] 298 10*3/uL Normal 150-450 [facility] Comment on above: Performed By: #### L 500.2500, L100.0100 #### [facility] [address] [place], [address] RBC (Bld) [#/Vol] 3.96 10*6/uL Low 4.6-6.2 [facility] Comment on above: Performed By: #### L 500.2500, L100.0100 #### [facility] [address] [place], [address] RDW SD 50.5 fl High 35.1-43.9 [facility] Comment on above: Performed By: #### L 500.2500, L100.0100 #### [facility] [address] [place], [address] WBC (Bld) [#/Vol] 6.2 10*3/uL Normal 4.4-11.0 [facility] Comment on above: Performed By: #### L 500.2500, L100.0100 #### [facility] [address] [place], [address] Carbon dioxide, total [Moles /volume] in Central venous bloodOrdered By: Brinda Duong on 12-21-2024 CO2 [Moles/Vol] 27.1 mmol/L 21.0-32.0 [facility] Chest 1 View (Portable)on Chest 1 View (Portable) [facility] Imaging Services [address] [place] [address] Chest 1 View (Portable) MR#: [id number] Acct: [id number] Name: JUAQUIN HKALIL Rep #: [id number] : 1945 M 79 From: Suresh Perera MD PCP: [facility] Status: ADM ANALILIA Study: Chest 1 View (Portable) Date of Exam: 12/21/24 Exam# [id number] Ordering Dr: Autumn Kohler MD PROCEDURE: CHEST 1 VIEW (PORTABLE) 12/21/2024 REASON FOR EXAM: DYSPNEA, COUGH TECHNIQUE: Frontal view of the chest. COMPARISON: Chest x-ray 12/18/2024. FINDINGS: Hardware: Status post median sternotomy. Heart: Mild cardiomegaly. Lungs: Clear. No pleural effusion or pneumothorax. Bones: No acute bony abnormalities. Other: RAD/Chest 1 View (Portable) IMPRESSION: No acute cardiopulmonary abnormalities. Reading Location: [facility] CC: Dr. 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 Chloride assayOrdered By: Mckenzie Duong on 12-21-2024 Chloride [Moles/Vol] 100 mmol/L 98-108 [facility] Discharge Instructionon 11-30 Discharge Instruction [facility] Medical Records Department [address] [place] [address] Instructions for Home/Discharge Instructions 12/21/24 1321 MR#: [id number] Acct: [id number] Name: JUAQUIN KHALIL Rep #: [id number] : 1945 79 From: Brinda Duong MD PCP: [facility] Status:ADM ANALILIA Discharge Instructions DC O2, CPAP, BIPAP needs Home O2 Discharge instructions: No Dressing / Incision Discharge Activity: Return to Normal Activity Weight Bearing Status: Weight bearing as tolerated Dressing / Incision Call your doctor if you observe: Fever of 101 or Higher, Shortness of breath, Dizziness, Swelling in the ankles and Chest pain Follow Up Care Test Results: Test results from this visit will be discussed in further detail at your follow-up appointment, if applicable. Discharge Plan Admission Admit Date/Time: 12/18/24 18:18 Primary Reason for Your Visit: acute on chronic HFrEF Attending Provider: Brinda Duong Primary Care Provider: [facility] Consulting Providers: Jaya Patel Instructions Patient Instructions: ED Heart Failure, Congestive (CHF) Discharge Orders/Prescriptions Prescriptions: New furosemide 40 mg Tablet 40 mg PO BIDLX Qty: 60 1RF nitrofurantoin monohyd/m-cryst 100 mg Capsule 100 mg PO BID Qty: 8 0RF potassium chloride [K-Tab] 20 mEq tablet extended release 20 meq PO DAILY Qty: 30 2RF Continued warfarin [Maytoven] 4 MG tablet 4 mg PO SUTUWETHFRSA [...] mg tablet 5 mg PO DAILY warfarin [Mayto] 2 mg tablet 2 mg PO DAILY Patient Comments: AT BEDTIME ON MONDAYS ONLY hydrocodone-acetaminop hen 5-325 mg tablet 1 tab PO Q4H PRN PRN (Reason: Pain) 2 Days Qty: 14 0RF Discontinued cefdinir 300 mg capsule 300 mg PO BID Qty: 10 0RF furosemide [Lasix] 40 mg tablet 40 mg PO DAILY Qty: 30 0RF Referrals [facility] - Within 1 Week Disposition Disposition (needs filled in before D/C Order can be placed): Home, Self Care 12/21/24 1321 Brinda Duong MD CC: Dr. Jaya Patel, DO; [facility] Signed Normal [facility] Eosinophil percentageOrdered By: Brinda Duong on 12-21-2024 Eosinophils/100 WBC (Bld) 3.0 % 0-5 [facility] Erythrocyte distribution wid th ratioOrdered By: Brinda Duong on 12-21-2024 Erythrocyte distribution width (RBC) [Ratio] 15.7 % High 11.6-14.6 [facility] Erythrocyte distribution wid th standard deviationOrdered By: Brinda Duong on 12-21-2024 Erythrocyte distribution width (RBC) [Ratio] 50.5 fl High 35.1-43.9 [facility] Glomerular filtration rate ( GFR) estimation/1.73 sq m using serum, plasma, or whole bOrdered By: Brinda Duong on 12-21-2024 GFR/1.73 sq M.predicted among non-blacks MDRD (S/P/Bld) [Vol rate/Area] 95 mL/min/{1.73_m2} >60 [facility] Comment on above: mL/min/1.73m2 CKD-EP I Creatinine Equation (2020) Hematocrit Auto (Bld) [Volum e fraction]Ordered By: Brinda Duong on 12-21-2024 Hematocrit (Bld) [Volume fraction] 34.8 % Low 40-54 [facility] Hemoglobin measurementOrdere d By: Brinda Duong on 12-21-2024 Hemoglobin (Bld) [Mass/Vol] 11.6 g/dL Low 13.0-16.5 [facility] Immature granulocytes/100 WB C Auto (Bld)Ordered By: Brinda Duong on 12-21-2024 Immature granulocytes/100 WBC (Bld) 1.300 % High 0.0-0.9 [facility] Comment on above: IG% - Immature Granu locytes (promyelocytes, myelocytes and metamyelocytes) > 1% indicates that a LEFT SHIFT is Present. MCV (mean corpuscular volume ) determinationOrdered By: Brinda Duong on 12-21-2024 MCV (RBC) [Entitic vol] 87.9 fL 80-94 [facility] Mean corpuscular hemoglobin (MCH) determinationOrdered By: Brinda Duong 12-21-2024 MCH (RBC) [Entitic mass] 29.3 pg 27.0-32.0 [facility] Mean corpuscular hemoglobin concentration (MCHC) determinationOrdered By: Brinda Duong 12-21-2024 MCHC (RBC) [Mass/Vol] 33.3 g/dL 32-36 [facility] Mean platelet volume determi nationOrdered By: Brinda Duong on 12-21-2024 Platelet mean volume (Bld) [Entitic vol] 9.6 fL 6.2-12.0 [facility] Monocyte percentageOrdered B y: Brinda Duong on 12-21-2024 Monocytes/100 WBC (Bld) 8.0 % 0-10 [facility] Neutrophil percentageOrdered By: Brindadhaval Duong on 12-21-2024 Neutrophils/100 WBC (Bld) 72.8 % High 47-70 [facility] Nucleated red blood cell per centageOrdered By: Brindadhaval Duong on 12-21-2024 Nucleated RBC/100 WBC (Bld) [Ratio] 0 % 0-5 [facility] Platelet countOrdered By: Mckenzie Duong on 12-21-2024 Platelets (Bld) [#/Vol] 298 10*3/uL 150-450 [facility] Potassium measurement (mass/ volume)Ordered By: Brinda Duong on 12-21-2024 Potassium (Unsp spec) [Mass/Vol] 3.4 mmol/L 3.3-5.1 [facility] RBC Auto (Bld) [#/Vol]Ordere d By: Brinda Duong on 12-21-2024 RBC (Bld) [#/Vol] 3.96 10*6/uL Low 4.6-6.2 [facility] RESPIRATORY PANEL MOLECULARo n 12-21-2024 RP PANEL ADENOVIRUS Not Detected INFLUENZA A Not Detected INFLUENZA A (SUBTYPE H1) Not Detected INFLUENZA A (SUBTYPE H3) Not Detected INFLUENZA B Not Detected HUMAN METAPHNEUMO Not Detected PARAINFLUENZA 1 Not Detected PARAINFLUENZA 2 Not Detected PARAINFLUENZA 3 Not Detected PARAINFLUENZA 4 Not Detected RHINOVIRUS Not Detected RSV A Not Detected RSV B Not Detected Normal [facility] Comment on above: Performed By: #### L 100.0500, L300.3900, L500.2500 #### [facility] [address] [place], [place], [id number] Serum creatinine measurement (mass/volume)Ordered By: Brinda Duong on 12-21-2024 Creatinine [Mass/Vol] 0.67 mg/dL Low 0.70-1.20 [facility] Serum glucose measurement (m ass/volume)Ordered By: Brinda Duong on 12-21-2024 Glucose [Mass/Vol] 101 mg/dL High 70-99 [facility] Serum or plasma calcium lourdes urement (mass/volume)Ordered By: Brinda Duong on 12-21-2024 Calcium [Mass/Vol] 8.3 mg/dL 7.6-11.0 [facility] Serum or plasma urea nitroge n measurement (mass/volume)Ordered By: Brinda Duong on 12-21-2024 Urea nitrogen [Mass/Vol] 8 mg/dL 4-19 [facility] Sodium levelOrdered By: Brinda Duong on 12-21-2024 Sodium [Moles/Vol] 137 mmol/L 133-145 [facility] White blood cell (WBC) count Ordered By: Brindadhaval Duong on 12-21-2024 WBC (Bld) [#/Vol] 6.2 10*3/uL 4.4-11.0 [facility] Basic Metabolic Profile (BMP )on 12-20-2024 BUN/CRE 10.2 RATIO Normal 10-20 [facility] Comment on above: Performed By: #### L 100.0500, L300.3900, L500.2500 #### [facility] [address] [place], [address] Calcium [Mass/Vol] 8.3 mg/dL Normal 7.6-11.0 [facility] Comment on above: Performed By: #### L 100.0500, L300.3900, L500.2500 #### [facility] [facility] [address] [place], [address] Chloride [Moles/Vol] 100 mmol/L Normal 98-108 [facility] Comment on above: Performed By: #### L 100.0500, L300.3900, L500.2500 #### [facility] [address] [place], [address] CO2 [Moles/Vol] 28.0 mmol/L Normal 21.0-32.0 [facility] Comment on above: Performed By: #### L 100.0500, L300.3900, L500.2500 #### [facility] [address] [place], [address] Creatinine [Mass/Vol] 0.76 mg/dL Normal 0.70-1.20 [facility] Comment on above: Performed By: #### L 100.0500, L300.3900, L500.2500 #### [facility] [address] [place], [address] ECRCL 88.53 ml/min Normal 50-250 [facility] Comment on above: Performed By: #### L 100.0500, L300.3900, L500.2500 #### [facility] [address] [place], [address] GAP 10 Normal 5-15 [facility] Comment on above: Performed By: #### L 100.0500, L300.3900, L500.2500 #### [facility] [address] [place], [address] GFR/1.73 sq M.predicted among non-blacks MDRD (S/P/Bld) [Vol rate/Area] 91 mL/min/{1.73_m2} Normal >60 [facility] Comment on above: Result Comment: mL/m in/1.73m2 CKD-EPI Creatinine Equation (2020) Performed By: #### L 100.0500, L300.3900, L500.2500 #### [facility] [address] [place], [address] Glucose [Mass/Vol] 98 mg/dL Normal 70-99 [facility] Comment on above: Performed By: #### L 100.0500, L300.3900, L500.2500 #### [facility] [address] [place], [address] Potassium [Moles/Vol] 3.3 mmol/L Normal 3.3-5.1 [facility] Comment on above: Performed By: #### L 100.0500, L300.3900, L500.2500 #### [facility] [address] [place], [address] Sodium [Moles/Vol] 138 mmol/L Normal 133-145 [facility] Comment on above: Performed By: #### L 100.0500, L300.3900, L500.2500 #### [facility] [address] [place], [address] Urea nitrogen [Mass/Vol] 8 mg/dL Normal 4-19 [facility] Comment on above: Performed By: #### L 100.0500, L300.3900, L500.2500 #### [facility] [address] [place], [address] CBC W/Diff, Automatedon 11-30 Absolute Lymph 0.93 X10 3/uL Normal 0.83-4.51 [facility] Comment on above: Performed By: #### L 100.0500, L300.3900, L500.2500 #### [facility] [address] [place], [address] Absolute Neut 4.3 X10 3/uL Normal 2.0-7.7 [facility] Comment on above: Performed By: #### L 100.0500, L300.3900, L500.2500 #### [facility] [address] [place], [address] Basophils/100 WBC (Bld) 0.6 % Normal 0-1 [facility] Comment on above: Performed By: #### L 100.0500, L300.3900, L500.2500 #### [facility] [address] [place], [address] Eosinophils/100 WBC (Bld) 5.0 % Normal 0-5 [facility] Comment on above: Performed By: #### L 100.0500, L300.3900, L500.2500 #### [facility] [address] [place], [address] Erythrocyte distribution width (RBC) [Ratio] 15.9 % High 11.6-14.6 [facility] Comment on above: Performed By: #### L 100.0500, L300.3900, L500.2500 #### [facility] [address] [place], [address] Hematocrit (Bld) [Volume fraction] 35.1 % Low 40-54 [facility] Comment on above: Performed By: #### L 100.0500, L300.3900, L500.2500 #### [facility] [address] [place], [address] Hemoglobin (Bld) [Mass/Vol] 11.5 g/dL Low 13.0-16.5 [facility] Comment on above: Performed By: #### L 100.0500, L300.3900, L500.2500 #### [facility] [address] [place], [address] IG% 1.600 High 0.0-0.9 [facility] Comment on above: Result Comment: IG% - Immature Granulocytes (promyelocytes, myelocytes and metamyelocytes) > 1% indicates that a LEFT SHIFT is Present. Performed By: #### L 100.0500, L300.3900, L500.2500 #### [facility] [address] [place], [address] Lymphocytes/100 WBC (Bld) 15.0 % Low 19-41 [facility] Comment on above: Performed By: #### L 100.0500, L300.3900, L500.2500 #### [facility] [address] [place], [address] MCH (RBC) [Entitic mass] 29.2 pg Normal 27.0-32.0 [facility] Comment on above: Performed By: #### L 100.0500, L300.3900, L500.2500 #### [facility] [address] [place], [address] MCHC (RBC) [Mass/Vol] 32.8 g/dL Normal 32-36 [facility] Comment on above: Performed By: #### L 100.0500, L300.3900, L500.2500 #### [facility] [address] [place], [address] MCV (RBC) [Entitic vol] 89.1 fL Normal 80-94 [facility] Comment on above: Performed By: #### L 100.0500, L300.3900, L500.2500 #### [facility] [address] [place], [address] Monocytes/100 WBC (Bld) 7.8 % Normal 0-10 [facility] Comment on above: Performed By: #### L 100.0500, L300.3900, L500.2500 #### [facility] [address] [place], [address] Neutrophils/100 WBC (Bld) 70.0 % Normal 47-70 [facility] Comment on above: Performed By: #### L 100.0500, L300.3900, L500.2500 #### [facility] [address] [place], [address] Nucleated RBC (Bld) [#/Vol] 0 10*3/uL Normal 0-5 [facility] Comment on above: Performed By: #### L 100.0500, L300.3900, L500.2500 #### [facility] [address] [place], [address] Platelet mean volume (Bld) [Entitic vol] 10.2 fL Normal 6.2-12.0 [facility] Comment on above: Performed By: #### L 100.0500, L300.3900, L500.2500 #### [facility] [address] [place], [address] Platelets (Bld) [#/Vol] 326 10*3/uL Normal 150-450 [facility] Comment on above: Performed By: #### L 100.0500, L300.3900, L500.2500 #### [facility] [address] [place], [address] RBC (Bld) [#/Vol] 3.94 10*6/uL Low 4.6-6.2 [facility] Comment on above: Performed By: #### L 100.0500, L300.3900, L500.2500 #### [facility] [address] [place], [address] RDW SD 52.2 fl High 35.1-43.9 [facility] Comment on above: Performed By: #### L 100.0500, L300.3900, L500.2500 #### [facility] [address] [place], [address] WBC (Bld) [#/Vol] 6.2 10*3/uL Normal 4.4-11.0 [facility] Comment on above: Performed By: #### L 100.0500, L300.3900, L500.2500 #### [facility] [address] [place], [address] Respiratory pathogens detect ion panel by molecular detection methodOrdered By: Autumn Kohler on 12-20-2024 Respiratory pathogens DNA and RNA panel SAIMA+probe (Resp) [facility] Urine Cultureon 12-20-2024 [facility] Urine Culture Enterobacter cloacae complex [place] Count 50,000-80,000 Pantoea species Pantoea species Enterobacter cloacae complex: REACTION Cefepime Islt TRANG <=0.12 S Ciprofloxacin Islt TRANG <=0.06 Gentamicin Islt TRANG <=1 S levoFLOXacin Islt TRANG <=0.12 S Meropenem Islt TRANG <=0.25 S Nitrofurantoin Islt TRANG <=16 S Pip+Tazo Islt TRANG <=4 S TMP SMX Islt TRANG <=20 S [place]oea species: REACTION Ciprofloxacin Islt TRANG <=0.06 S Gentamicin Islt TRANG <=1 levoFLOXacin Islt TRANG <=0.12 S Meropenem Islt TRANG <=0.25 S Nitrofurantoin Islt TRANG <=16 S TMP SMX Islt TRANG <=[address] [facility] Comment on above: Performed By: #### L 100.0500, L300.3900, L500.2500 #### [facility] [address] [facility], [address] 12 Lead EKGon 12-19-2024 12 Lead EKG [facility] Cardiovascular Services [address] [place] [address] 12 Lead EKG 12/19/24 0554 MR#: [id number] Acct: [id number] Name: JUAQUIN KHALIL Rep #: [id number] : 1945 79 From: Tejal Alan MD Attending Dr: Dr. Brinda Duong MD Status: AD M ANALILIA Ordering Dr: Autumn Kohler MD Date: 12/19/24 Location: [facility] Sex: M C Admitted: 12/18/24 Test Reason : CP Blood Pressure : */* mmHG Vent. Rate : 73 BPM Atrial Rate : * BPM P-R Int : * ms QRS Dur : 84 ms QT Int : 420 ms P-R-T Axes : * 27 79 degrees QTcB Int : 462 ms Atrial fibrillation Nonspecific T wave abnormality Prolonged QT Abnormal ECG When compared with ECG of 18-Dec-2024 15:26, MANUAL COMPARISON REQUIRED DATA IS UNCONFIRMED Confirmed by SHANA ALCAZAR, COURT ([id number]), web editor FEDERICO ROSS ([id number]) on 12/19/2024 1:37:27 PM Referred By: Confirmed By: COURT ALAN MD 12/19/24 1337 Date Tejal Alan MD CC: Dr. Autumn Kohler MD; Dr. Brinda Duong MD; [facility] Signed Normal [facility] Basic Metabolic Profile (BMP )on 12-19-2024 BUN/CRE 10.1 RATIO Normal 10-20 [facility] Comment on above: Performed By: #### L 100.0500, L300.3900, L500.2500 #### [facility] [address] [place], [address] Calcium [Mass/Vol] 7.9 mg/dL Normal 7.6-11.0 [facility] Comment on above: Performed By: #### L 100.0500, L300.3900, L500.2500 #### [facility] [address] [place], [address] Chloride [Moles/Vol] 104 mmol/L Normal 98-108 [facility] Comment on above: Performed By: #### L 100.0500, L300.3900, L500.2500 #### [facility] [address] [place], [address] CO2 [Moles/Vol] 27.4 mmol/L Normal 21.0-32.0 [facility] Comment on above: Performed By: #### L 100.0500, L300.3900, L500.2500 #### [facility] [address] [place], [address] Creatinine [Mass/Vol] 0.67 mg/dL Low 0.70-1.20 [facility] Comment on above: Performed By: #### L 100.0500, L300.3900, L500.2500 #### [facility] [address] [place], [address] ECRCL 88.53 ml/min Normal 50-250 [facility] Comment on above: Performed By: #### L 100.0500, L300.3900, L500.2500 #### [facility] [address] [place], [address] GAP 9 Normal 5-15 [facility] Comment on above: Performed By: #### L 100.0500, L300.3900, L500.2500 #### [facility] [address] [place], [address] GFR/1.73 sq M.predicted among non-blacks MDRD (S/P/Bld) [Vol rate/Area] 95 mL/min/{1.73_m2} Normal >60 [facility] Comment on above: Result Comment: mL/m in/1.73m2 CKD-EPI Creatinine Equation (2020) Performed By: #### L 100.0500, L300.3900, L500.2500 #### [facility] [address] [place], [address] Glucose [Mass/Vol] 96 mg/dL Normal 70-99 [facility] Comment on above: Performed By: #### L 100.0500, L300.3900, L500.2500 #### [facility] [address] [place], [address] Potassium [Moles/Vol] 3.4 mmol/L Normal 3.3-5.1 [facility] Comment on above: Performed By: #### L 100.0500, L300.3900, L500.2500 #### [facility] [address] [place], [address] Sodium [Moles/Vol] 140 mmol/L Normal 133-145 [facility] Comment on above: Performed By: #### L 100.0500, L300.3900, L500.2500 #### [facility] [address] [place], [address] Urea nitrogen [Mass/Vol] 7 mg/dL Normal 4-19 [facility] Comment on above: Performed By: #### L 100.0500, L300.3900, L500.2500 #### [facility] [address] [place], [address] CBC-Complete Blood Cnt No Di ffon 12-19-2024 Erythrocyte distribution width (RBC) [Ratio] 15.9 % High 11.6-14.6 [facility] Comment on above: Performed By: #### L 100.0500, L300.3900, L500.2500 #### [facility] [address] [place], [address] Hematocrit (Bld) [Volume fraction] 33.8 % Low 40-54 [facility] Comment on above: Performed By: #### L 100.0500, L300.3900, L500.2500 #### [facility] [address] [place], [address] Hemoglobin (Bld) [Mass/Vol] 11.0 g/dL Low 13.0-16.5 [facility] Comment on above: Performed By: #### L 100.0500, L300.3900, L500.2500 #### [facility] [address] [place], [address] MCH (RBC) [Entitic mass] 29.3 pg Normal 27.0-32.0 [facility] Comment on above: Performed By: #### L 100.0500, L300.3900, L500.2500 #### [facility] [address] [place], [address] MCHC (RBC) [Mass/Vol] 32.5 g/dL Normal 32-36 [facility] Comment on above: Performed By: #### L 100.0500, L300.3900, L500.2500 #### [facility] [address] [place], [address] MCV (RBC) [Entitic vol] 89.9 fL Normal 80-94 [facility] Comment on above: Performed By: #### L 100.0500, L300.3900, L500.2500 #### [facility] [address] [place], [address] Platelet mean volume (Bld) [Entitic vol] 10.1 fL Normal 6.2-12.0 [facility] Comment on above: Performed By: #### L 100.0500, L300.3900, L500.2500 #### [facility] [address] [place], [address] Platelets (Bld) [#/Vol] 286 10*3/uL Normal 150-450 [facility] Comment on above: Performed By: #### L 100.0500, L300.3900, L500.2500 #### [facility] [address] [place], [address] RBC (Bld) [#/Vol] 3.76 10*6/uL Low 4.6-6.2 [facility] Comment on above: Performed By: #### L 100.0500, L300.3900, L500.2500 #### [facility] [address] [place], [address] RDW SD 52.6 fl High 35.1-43.9 [facility] Comment on above: Performed By: #### L 100.0500, L300.3900, L500.2500 #### [facility] [address] [place], [address] WBC (Bld) [#/Vol] 5.9 10*3/uL Normal 4.4-11.0 [facility] Comment on above: Performed By: #### L 100.0500, L300.3900, L500.2500 #### [facility] [address] [place], [address] Echocardiogram study reportO rdered By: Moreno Bob on 12-19-2024 Study report [facility] Cardi[facility] Services [address] [place] [address] Echo Complete W/ Contrast 12/19/24 0844 MR#: [id number] Acct: [id number] Name: JUAQUIN KHALIL Rep #:[id number] : 1945 79 From: Moreno Yen Attending Dr: Dr. Brinda Duong MD Status: ADM ANALILIA Ordering Dr: Jaya Patel DO Da te: 12/18/24 Location: [facility] Sex: M C Admitted: 12/18/24 Reason For Study Reason For Study: CHF Procedure This was a 2D Doppler, Color Flow transthoracic echocardiogram. The study was technically difficult. Contrast injection was performed. Exam performed portable in patient room. Left Ventricle Normal LV size. Left ventricular systolic function is normal. The left ventricular ejection fraction is 60 %. No regional wall motion abnormalities noted. Right Ventricle Normal RV size. Normal systolic function. Atria The left atrium is moderately enlarged. The right atrium is moderately enlarged. Mitral Valve Normal mitral valve. Tricuspid Valve Normal tricuspid valve. Aortic Valve Peak aortic valve gradient 44 mmHg. Mean aortic valve gradient 22 mmHg. Stable appearing mechanical aortic valve apparatus. Pulmonic Valve Normal pulmonic valve. Great Vessels Normal aortic root. The pulmonary artery is normal size. Inferior vena cava collapse with respiration. Pericardium/Pleural No pericardial effusion. Medication Diluted definity 1ml given slow IV push to enhance endocardial definition. MMode/2D Measurements & Calculations LVIDd: 4.6 cm IVSd: 1.1 cm LAV(MOD-sp4): 104.7 ml LVIDs: 2.9 cm LVPWd: 1.4 cm FS: 36.2 % LVAd ap4: 38.4 cm2 SV(MOD-sp4): 78.5 ml SV(sp4-el): 83.8 ml LVLd ap4: 8.9 cm SI(MOD-sp4): 36.2 ml/m2 EDV(MOD-sp4): 138.7 ml EDV(sp4-el): 141.2 ml LVAs ap4: 23.3 cm2 LVLs ap4: 8.0 cm ESV(MOD-sp4): 60.2 ml ESV(sp4-el): 57.4 ml EF(MOD-sp4): 56.6 % EF(sp4-el): 59.4 % LA A4 area: 29.8 cm2 RA A4 area: 26.8 cm2 Doppler Measurements & Calculations MV E max elza: 143.6 cm/sec Ao V2 max: 334.0 cm/sec PA V2 max: 113.4 cm/sec Ao max P.7 mmHg PA V2 mean: 78.8 cm/sec Ao V2 mean: 222.5 cm/sec Ao mean P.5 mmHg Ao V2 VTI: 73.9 cm ECHO/Echo Complete W/ Contrast Interpretation Summary Normal LV size. Left ventricular systolic function is normal. The left ventricular ejection fraction is 60 %. Stable appearing mechanical aortic valve apparatus. Mean aortic valve gradient 22 mmHg. The left atrium is moderately enlarged. The right atrium is moderately enlarged. Contrast injection was performed. Ordering Physician: Jaya Patel Referring Physician: [facility] Performed By: Linda Chavez RCS 12/19/24 1204 Date _ Moreno Bob MD CC: Dr. Jaya Patel DO; Dr. Brinda Duong MD; [facility] ~ Date Dictated: 12/19/24 0844 Date Transcribed: 12/19/24 1204 Butadiene Convertor Operator: Signed [facility] Work Phone: Electrocardiogram reportOrde red By: Tejal Alan on 12-19-2024 EKG study [facility] Cardiovascular Services [address] [place] [address] 12 Lead EKG 12/19/24 0554 MR#: [id number] Acct: [id number] Name: JUAQUIN KHALIL Rep #:[id number] : 1945 79 From: Tejal gold MD Attending Dr: Dr. Brinda Duong MD Status: ADM ANALILIA Ordering Dr: Autumn Kohler MD Date: 12/19/24 Location: [facility] Sex: M C Admitted: 12/18/24 Test Reason : CP Blood Pressure : */* mmHG Vent. Rate : 73 BPM Atrial Rate : * BPM P-R Int : * ms QRS Dur : 84 ms QT Int : 420 ms P-R-T Axes : * 27 79 degrees QTcB Int : 462 ms Atrial fibrillation Nonspecific T wave abnormality Prolonged QT Abnormal ECG When compared with ECG of 18-Dec-2024 15:26, MANUAL COMPARISON REQUIRED DATA IS UNCONFIRMED Confirmed by SHANA ALCAZAR, COURT ([id number]), web editor FEDERICO ROSS ([id number]) on12/19/2024 1:37:27 PM Referred By: Confirmed By: COURT ALAN MD 12/19/24 1337 Date _ Tejal Alan MD CC: Dr. Autumn Kohler MD; Dr. Brinda Duong MD; [facility] ~ Signed [facility] Other Phone: EKG study [facility] Cardiovascular Services [address] [place] [address] 12 Lead EKG 12/18/24 1526 MR#: [id number] Acct: [id number] Name: JUAQUIN KHALIL Rep #:[id number] : 1945 79 From: Tejal gold MD Attending Dr: Dr. Brinda Duong MD Status: ADM ANALILIA Ordering Dr: Anup Guerrero DO Date: Location: [facility] Sex: M C Admitted: 12/18/24 Test Reason : Blood Pressure : */* mmHG Vent. Rate : 61 BPM Atrial Rate : * BPM P-R Int : * ms QRS Dur : 82 ms QT Int : 366 ms P-R-T Axes : * 19 105 degrees QTcB Int : [address] & T wave abnormality, consider anterolateral ischemia Abnormal ECG Confirmed by SHANA ALCAZAR, COURT ([id number]), web editor FEDERICO ROSS ([id number]) on12/19/2024 1:35:15 PM Referred By: Confirmed By: COURT LAAN MD 12/19/24 1335 Date _ Tejal Alan MD CC: Dr. Brinda Duong MD; Dr. Anup Guerrero DO; [facility] ~ Signed [facility] Other Phone: International normalized rat io (INR) calculationOrdered By: Jaya Patel on 12-19-2024 INR Coag (Bld) [Relative time] 3.5 {INR} [facility] Prothrombin Time w/INRon INR Coag (PPP) [Relative time] 3.5 {INR} Normal [facility] Comment on above: Performed By: #### L 100.0500, L300.3900, L500.2500 #### [facility] [address] [place], [place], [address] PT Coag (PPP) [Time] 35.8 s High 11.7-14.9 [facility] Comment on above: Performed By: #### L 100.0500, L300.3900, L500.2500 #### [facility] [address] [place], [address] Prothrombin timeOrdered By: Jaya Patel on 12-19-2024 PT Coag (PPP) [Time] 35.8 s High 11.7-14.9 [facility] 12 Lead EKGon 12-18-2024 12 Lead EKG [facility] Cardiovascular Services [address] [place] [address] 12 Lead EKG 12/18/24 1526 MR#: [id number] Acct: [id number] Name: JUAQUIN KHALIL Rep #: [id number] : 1945 79 From: Tejal Alan MD Attending Dr: Dr. Brinda Duong MD Status: GEMMA BILLINGSLEY Ordering Dr: Anup Guerrero DO Date: 12/18/24 Location: [facility] Sex: M C Admitted: 12/18/24 Test Reason : Blood Pressure : */* mmHG Vent. Rate : 61 BPM Atrial Rate : * BPM P-R Int : * ms QRS Dur : 82 ms QT Int : 366 ms P-R-T Axes : * 19 105 degrees QTcB Int : [address] T wave abnormality, consider anterolateral ischemia Abnormal ECG Confirmed by SHANA ALCAZAR, COURT ([id number]), web editor FEDERICO ROSS ([id number]) on 12/19/2024 1:35:15 PM Referred By: Confirmed By: COURT ALAN MD 12/19/24 1339 Date Tejal Alan MD CC: Dr. Brinda Duong MD; Dr. Anup Guerrero DO; [facility] Signed Normal [facility] Absolute lymphocyte countOrd ered By: Anup Guerrero on 12-18-2024 Lymphocytes Auto (Unsp spec) [#/Vol] 0.85 10*3/uL 0.83-4.51 [facility] Absolute neutrophil countOrd ered By: Anup Guerrero on 12-18-2024 Neutrophils (Bld) [#/Vol] 4.3 10*3/uL 2.0-7.7 [facility] Anion gap in Serum or Plasma Ordered By: Anup Guerrero on 12-18-2024 Anion gap [Moles/Vol] 10 mmol/L 09-12 [facility] Automated lymphocyte count a s percentage of total leukocytesOrdered By: [facility] on 12-18-2024 Lymphocytes/100 WBC Auto (Unsp spec) 14.0 % Low [facility] BUN/creatinine ratioOrdered By: [facility] Gu[facility] on 12-18-2024 Urea nitrogen/Creatinine [Mass ratio] 12.5 mg/mg 02-17 [facility] Basic Metabolic Profile (BMP )on 12-18-2024 BUN/CRE 12.5 RATIO Normal 02-17 [facility] Comment on above: Performed By: #### L 100.0500, L300.3900, L500.2500 #### [facility] [address] [place], [address] Calcium [Mass/Vol] 8.5 mg/dL Normal 7.6-11.0 [facility] Comment on above: Performed By: #### L 100.0500, L300.3900, L500.2500 #### [facility] [address] [place], [address] Chloride [Moles/Vol] 103 mmol/L Normal 98-108 [facility] Comment on above: Performed By: #### L 100.0500, L300.3900, L500.2500 #### [facility] [address] [place], [address] CO2 [Moles/Vol] 25.3 mmol/L Normal 21.0-32.0 [facility] Comment on above: Performed By: #### L 100.0500, L300.3900, L500.2500 #### [facility] [address] [place], [address] Creatinine [Mass/Vol] 0.68 mg/dL Low 0.70-1.20 [facility] Comment on above: Performed By: #### L 100.0500, L300.3900, L500.2500 #### [facility] [address] [place], [address] ECRCL 90.10 ml/min Normal 50-250 [facility] Comment on above: Performed By: #### L 100.0500, L300.3900, L500.2500 #### [facility] [address] [place], [address] GAP 10 Normal 5-15 [facility] Comment on above: Performed By: #### L 100.0500, L300.3900, L500.2500 #### [facility] [address] [place], [address] GFR/1.73 sq M.predicted among non-blacks MDRD (S/P/Bld) [Vol rate/Area] 95 mL/min/{1.73_m2} Normal >60 [facility] Comment on above: Result Comment: mL/m in/1.73m2 CKD-EPI Creatinine Equation (2020) Performed By: #### L 100.0500, L300.3900, L500.2500 #### [facility] [address] [place], [address] Glucose [Mass/Vol] 90 mg/dL Normal 70-99 [facility] Comment on above: Performed By: #### L 100.0500, L300.3900, L500.2500 #### [facility] [address] [place], [address] Potassium [Moles/Vol] 4.4 mmol/L Normal 3.3-5.1 [facility] Comment on above: Performed By: #### L 100.0500, L300.3900, L500.2500 #### [facility] [address] [place], [address] Sodium [Moles/Vol] 139 mmol/L Normal 133-145 [facility] Comment on above: Performed By: #### L 100.0500, L300.3900, L500.2500 #### [facility] [address] [place], [address] Urea nitrogen [Mass/Vol] 8 mg/dL Normal 4-19 [facility] Comment on above: Performed By: #### L 100.0500, L300.3900, L500.2500 #### [facility] [address] [place], [address] Basophil percentageOrdered B y: Anup Guerrero on 12-18-2024 Basophils/100 WBC (Bld) 0.5 % 0-1 [facility] Bilirubin Test strip Ql (U)O rdered By: Anup Guerrero on 12-18-2024 Bilirubin Ql (U) Negative Negative [facility] Brain/Head without Contrasto n 12-18-2024 Brain/Head without Contrast [facility] [facility] Imaging Services [address] [place] [address] Brain/Head without Contrast MR#: [id number] Acct: [id number] Name: JUAQUIN KHALIL Rep #: [id number] : 1945 M 79 From: Tevin Gan MD PCP: [facility] Status: REG ER Study: Brain/Head without Contrast Date of Exam: 11/30 Exam# [id number] Ordering Dr: Anup Guerrero DO PROCEDURE: BRAIN/HEAD WITHOUT CONTRAST 12/18/2024 REASON FOR EXAM: DIZZINESS, VISION CHANGES TECHNIQUE: BRAIN/HEAD WITHOUT CONTRAST Coronal and Sagittal reconstruction series were provided. One or more dose reduction techniques were used (e.g., Automated exposure control, adjustment of the mA and/or kV according to patient size, use of iterative reconstruction technique. RADIATION DOSE SUMMARY: CTDlvol: 44 mGy DLP: 880 mGycm COMPARISON: 03/22/2024. FINDINGS: Mild global parenchymal atrophy. Left frontotemporal encephalomalacia. No evidence of acute hemorrhage or infarction. No extra-axial blood or fluid collections. Pansinus mucosal thickening. The mastoid air cells are clear. The calvarial vault and skull base are intact. CT/Brain/Head without Contrast IMPRESSION: No acute intracranial abnormality. Left frontotemporal encephalomalacia. Reading Location: [id number] CC: Dr. Anup Guerrero, ; [facility] Butadiene Convertor Operator: Signed Normal [facility] CBC W/Diff, Automatedon 11-30 Absolute Lymph 0.85 X10 3/uL Normal 0.83-4.51 [facility] Comment on above: Performed By: #### L 100.0500, L300.3900, L500.2500 #### [facility] [address] [place], [address] Absolute Neut 4.3 X10 3/uL Normal 2.0-7.7 [facility] Comment on above: Performed By: #### L 100.0500, L300.3900, L500.2500 #### [facility] [address] [place], [address] Basophils/100 WBC (Bld) 0.5 % Normal 0-1 [facility] Comment on above: Performed By: #### L 100.0500, L300.3900, L500.2500 #### [facility] [address] [place], [address] Eosinophils/100 WBC (Bld) 3.8 % Normal 0-5 [facility] Comment on above: Performed By: #### L 100.0500, L300.3900, L500.2500 #### [facility] [address] [place], [address] Erythrocyte distribution width (RBC) [Ratio] 16.0 % High 11.6-14.6 [facility] Comment on above: Performed By: #### L 100.0500, L300.3900, L500.2500 #### [facility] [address] [place], [address] Hematocrit (Bld) [Volume fraction] 33.7 % Low 40-54 [facility] Comment on above: Performed By: #### L 100.0500, L300.3900, L500.2500 #### [facility] [address] [place], [address] Hemoglobin (Bld) [Mass/Vol] 10.7 g/dL Low 13.0-16.5 [facility] Comment on above: Performed By: #### L 100.0500, L300.3900, L500.2500 #### [facility] [address] [place], [address] IG% 1.300 High 0.0-0.9 [facility] Comment on above: Result Comment: IG% - Immature Granulocytes (promyelocytes, myelocytes and metamyelocytes) > 1% indicates that a LEFT SHIFT is Present. Performed By: #### L 100.0500, L300.3900, L500.2500 #### [facility] [address] [place], [address] Lymphocytes/100 WBC (Bld) 14.0 % Low 19-41 [facility] Comment on above: Performed By: #### L 100.0500, L300.3900, L500.2500 #### [facility] [address] [place], [address] MCH (RBC) [Entitic mass] 29.2 pg Normal 27.0-32.0 [facility] Comment on above: Performed By: #### L 100.0500, L300.3900, L500.2500 #### [facility] [address] [place], [address] MCHC (RBC) [Mass/Vol] 31.8 g/dL Low 32-36 [facility] Comment on above: Performed By: #### L 100.0500, L300.3900, L500.2500 #### [facility] [address] [place], [address] MCV (RBC) [Entitic vol] 91.8 fL Normal 80-94 [facility] Comment on above: Performed By: #### L 100.0500, L300.3900, L500.2500 #### [facility] [address] [place], [address] Monocytes/100 WBC (Bld) 8.9 % Normal 0-10 [facility] Comment on above: Performed By: #### L 100.0500, L300.3900, L500.2500 #### [facility] [address] [place], [address] Neutrophils/100 WBC (Bld) 71.5 % High 47-70 [facility] Comment on above: Performed By: #### L 100.0500, L300.3900, L500.2500 #### [facility] [address] [place], [address] Nucleated RBC (Bld) [#/Vol] 0 10*3/uL Normal 0-5 [facility] Comment on above: Performed By: #### L 100.0500, L300.3900, L500.2500 #### [facility] [address] [place], [address] Platelet mean volume (Bld) [Entitic vol] 10.3 fL Normal 6.2-12.0 [facility] Comment on above: Performed By: #### L 100.0500, L300.3900, L500.2500 #### [facility] [address] [place], [address] Platelets (Bld) [#/Vol] 277 10*3/uL Normal 150-450 [facility] Comment on above: Performed By: #### L 100.0500, L300.3900, L500.2500 #### [facility] [address] [place], [address] RBC (Bld) [#/Vol] 3.67 10*6/uL Low 4.6-6.2 [facility] Comment on above: Performed By: #### L 100.0500, L300.3900, L500.2500 #### [facility] [address] [place], [address] RDW SD 54.5 fl High 35.1-43.9 [facility] Comment on above: Performed By: #### L 100.0500, L300.3900, L500.2500 #### [facility] [address] [place], [address] WBC (Bld) [#/Vol] 6.1 10*3/uL Normal 4.4-11.0 [facility] Comment on above: Performed By: #### L 100.0500, L300.3900, L500.2500 #### [facility] [address] [place], [address] Carbon dioxide, total [Moles /volume] in Central venous bloodOrdered By: Anup Guerrero on 12-18-2024 CO2 [Moles/Vol] 25.3 mmol/L 21.0-32.0 [facility] Chest 1 View (Portable)on Chest 1 View (Portable) [facility] Imaging Services [address] [place] [address] Chest 1 View (Portable) MR#: [id number] Acct: [id number] Name: JUAQUIN KHALIL Rep #: [id number] : 1945 M 79 From: Tevin Gan MD [facility] Status: REG ER Study: Chest 1 View (Portable) Date of Exam: 12/18/24 Exam# [id number] Ordering Dr: Anup Guerrero DO PROCEDURE: CHEST 1 VIEW (PORTABLE) 12/18/2024 REASON FOR EXAM: COUGH TECHNIQUE: Frontal view of the chest. COMPARISON: 05/2023. FINDINGS: Prior sternotomy. The heart is likely enlarged. Mild vascular indistinctness lung bases favoring mild edema. Infection is possible. No visualized pleural effusion. No acute osseous abnormalities. RAD/Chest 1 View (Portable) IMPRESSION: Pulmonary findings as above. Reading Location: [id number] CC: Dr. Anup Guerrero DO; [facility] Butadiene Convertor Operator: Signed Normal [facility] Chloride assayOrdered By: Blanka Guerrero on 12-18-2024 Chloride [Moles/Vol] 103 mmol/L 98-108 [facility] Echo Complete W/ Contraston 12-18-2024 Echo Complete W/ Contrast [facility] Cardiovascular Services [address] [place] [address] Echo Complete W/ Contrast 12/19/24 0844 MR#: [id number] Acct: [id number] Name: JUAQUIN KHALIL Rep #: [id number] : 1945 79 From: Moreno Bob MD Attending Dr: Dr. Brinda Duong MD Status: AD M ANALILIA Ordering Dr: Jaya Patel DO Date: 12/18/24 Location: U Sex: M C Admitted: 12/18/24 Reason For Study Reason For Study: CHF Procedure This was a 2D Doppler, Color Flow transthoracic echocardiogram. The study was technically difficult. Contrast injection was performed. Exam performed portable in patient room. Left Ventricle Normal LV size. Left ventricular systolic function is normal. The left ventricular ejection fraction is 60 %. No regional wall motion abnormalities noted. Right Ventricle Normal RV size. Normal systolic function. Atria The left atrium is moderately enlarged. The right atrium is moderately enlarged. Mitral Valve Normal mitral valve. Tricuspid Valve Normal tricuspid valve. Aortic Valve Peak aortic valve gradient 44 mmHg. Mean aortic valve gradient 22 mmHg. Stable appearing mechanical aortic valve apparatus. Pulmonic Valve Normal pulmonic valve. Great Vessels Normal aortic root. The pulmonary artery is normal size. Inferior vena cava collapse with respiration. Pericardium/Pleural No pericardial effusion. Medication Diluted definity 1ml given slow IV push to enhance endocardial definition. MMode/2D Measurements Calculations LVIDd: 4.6 cm IVSd: 1.1 cm LAV(MOD-sp4): 104.7 ml LVIDs: 2.9 cm LVPWd: 1.4 cm FS: 36.2 % LVAd ap4: 38.4 cm2 SV(MOD-sp4): 78.5 ml SV(sp4-el): 83.8 ml LVLd ap4: 8.9 cm SI(MOD-sp4): 36.2 ml/m2 EDV(MOD-sp4): 138.7 ml EDV(sp4-el): 141.2 ml LVAs ap4: 23.3 cm2 LVLs ap4: 8.0 cm ESV(MOD-sp4): 60.2 ml ESV(sp4-el): 57.4 ml EF(MOD-sp4): 56.6 % EF(sp4-el): 59.4 % LA A4 area: 29.8 cm2 RA A4 area: 26.8 cm2 Doppler Measurements Calculations MV E max elza: 143.6 cm/sec Ao V2 max: 334.0 cm/sec PA V2 max: 113.4 cm/sec Ao max P.7 mmHg PA V2 mean: 78.8 cm/sec Ao V2 mean: 222.5 cm/sec Ao mean P.5 mmHg Ao V2 VTI: 73.9 cm ECHO/Echo Complete W/ Contrast Interpretation Summary Normal LV size. Left ventricular systolic function is normal. The left ventricular ejection fraction is 60 %. Stable appearing mechanical aortic valve apparatus. Mean aortic valve gradient 22 mmHg. The left atrium is moderately enlarged. The right atrium is moderately enlarged. Contrast injection was performed. Ordering Physician: Jaya Patel Referring Physician: [facility] Performed By: Linda Chavez RCS 12/19/24 1204 Date Moreno Bob MD CC: Dr. Jaya Patel DO; Dr. Brinda Duong MD; [facility] Date Dictated: 12/19/2444 Date Transcribed: 12/19/24 1204 Butadiene Convertor Operator: Signed Normal [facility] Emergency Department Summary on 12-18-2024 Emergency Department Summary [facility] Medical Records Department [address] [place] [id number] Emergency Department Summary 12/18/24 MR#: [id number] Acct: [id number] Name: UJAQUIN KHALIL Rep #: [id number] : 1945 79 From: Anup Guerrero DO PCP: [facility] Status:ADM ANALILIA Location: [place] [address] HPI History of Present Illness Chief Complaint: Dizziness Detail of Chief Complaint: Dizziness and not feeling well Informant: patient Narrative Narrative: Patient presents to the emergency department with complaint of dizziness and not feeling well for about a week. Patient states that she has had intermittent episodes for the last week especially worse with standing but can happen while seated as well. Today he was sitting and developed sudden onset of some blurred vision. Patient states that he could still see but everything looked like it was in a picture frame and that lasted less than a minute. Patient generally just feels weak. He is currently on Coumadin. He has had an aortic valve replacement in the past but states that he needs another one he is good to find out in about 5 days when that can happen. He denies chest pain. He has had a cough for about a week. Cough is nonproductive. He denies fever. He does describe some mild dysuria. [facility] Medical History (Updated 12/18/24 @ 18:[address] Anup Guerrero, ) Wears hearing aid Thyroid disease High cholesterol [...] tablet 100 mg PO DAILYCM gout 04/04/16 History atorvastatin 40 mg tablet 80 mg PO DAILY cholesterol 6 05/18/23 History ferrous sulfate 325 mg (65 mg 325 mg PO DAILY supplement 6 05/18/23 History iron) tablet isosorbide mononitrate 30 mg 30 mg PO DAILY chest pain 04/04/16 05/18/23 History tablet,extended release 24 hr levothyroxine 25 mcg tablet 50 mcg PO DAILY thyroid 04/04/16 0 05/18/23 History metoprolol tartrate 25 mg tablet 25 mg PO DAILY blood pressure 09/1305/18/23 History pantoprazole 40 mg tablet,delayed 40 mg PO BID reflux 04/04/1605/01 History release gabapentin 300 mg capsule 300 mg PO DAILY nerve pain 0 05/18/23 History tamsulosin 0.4 mg capsule 0.4 mg PO DAILY prostate 07/09/22 05/18/23 History aspirin 81 mg capsule 81 mg PO DAILY heart health 05/18/23 History finasteride 5 mg tablet 5 mg PO DAILY prostate 05/18/23 History warfarin 2 mg tablet (Jantoven) 2 mg PO DAILY blood thinner Unknown History cefdinir 300 mg capsule 300 mg PO BID #10 caps 05/23/23 Un known Rx furosemide 40 mg tablet (Lasix) 40 mg PO DAILY #30 tabs 05/23/23 U nknown Rx hydrocodone-acetaminop hen 5-325mg 1 tab PO Q4H PRN PRN Pain 2 days 02/13/24 Unknown Rx 5mg-325mg #14 TABLETS Allergy/AdvReac Type Severity Reaction Status Date / Time hydrocodone bitartrate (From Allergy Other Verified 03/22/24 15:48 Vicodin) Surgical History History of total right hip replacement History [...] fever(s), sweats or weight loss Eyes Eyes: Reports blurry vision; Denies change in vision or diplopia ENT ENT ED: Denies rhinorrhea or sore throat Cardiovascular Cardiovascular: Denies chest pain, orthopnea or racing heartbeat Respiratory/Chest Respiratory/Chest: Reports cough; Denies dyspnea, dyspnea on exertion, orthopnea or sputum Gastrointestinal Gastrointestinal: Denies abdominal pain, diarrhea, nausea or vomiting Genitourinary Genitourinary ED: Denies dysuria, hematuria or urinary frequency Musculoskeletal Musculoskeletal: Denies arthralgias, back pain, myalgias or neck pain Integumentary Denies abscess, Abrasions or rash Neurologic Neurologic: Reports other Details: Dizziness ; Denies headache(s) or weakness Psychiatric Psychiatric: Denies a (more content not included)... Normal [facility] Eosinophil percentageOrdered By: Anup Guerrero on 12-18-2024 Eosinophils/100 WBC (Bld) 3.8 % 0-5 [facility] Erythrocyte distribution wid th ratioOrdered By: Remus Ungsumeet on 12-18-2024 Erythrocyte distribution width (RBC) [Ratio] 16.0 % High 11.6-14.6 [facility] Erythrocyte distribution wid th standard deviationOrdered By: Remus Ungsumeet on 12-18-2024 Erythrocyte distribution width (RBC) [Ratio] 54.5 fl High 35.1-43.9 [facility] Glomerular filtration rate ( GFR) estimation/1.73 sq m using serum, plasma, or whole bOrdered By: Remus Ungsumeet on 12-18-2024 GFR/1.73 sq M.predicted among non-blacks MDRD (S/P/Bld) [Vol rate/Area] 95 mL/min/{1.73_m2} >60 [facility] Comment on above: mL/min/1.73m2 CKD-EP I Creatinine Equation (2020) H AND P Exam - [facility] 12-18-2024 H&P Exam - Hospitalist [facility] Medical Records Department [address] [place] [address] H P Exam - Hospitalist 12/18/24 1818 MR#: [id number] Acct: [id number] Name: JUAQUIN KHALIL Rep #: [id number] : 1945 79 From: Jaya Patel DO PCP: [facility] Status:ADM ANALILIA Location: [address] General Date of Admission: 12/18/24 Date of Service: 12/18/24 Chief Complaint: Presyncopal symptoms and shortness of breath with exertion HPI Narrative JUAQUIN KHALIL, is a 79 [address] to [facility] ED on 12/18/2024 with presyncopal symptoms and shortness of breath with exertion. Patient lives at home with his , has decent functional status at baseline. Medical history significant for mechanical aortic valve replacement in 2001 on warfarin, chronic A-fib, chronic HFpEF, history of CAD with stenting, hypertension and hyperlipidemia. He had the mechanical valve placed at [facility] and has followed with [facility] in the past for this. Patient was last hospitalized here in May 2023 and there was concern for a vegetation on the mechanical valve at that time. EDGAR fortunately showed no vegetation, normal EF and some valve thickening but no valvular dysfunction. However, patient and note that he has seen [facility] cardiology and had testing done within the past several months and were told that his mechanical valve is failing. He has an appointment with his [facility] doctors to discuss replacement of the mechanical valve in the near future. On further discussion, patient believes he was told that the valve was leaky and this is why he was feeling, but he is not sure. Unfortunately I was not able to view these records in [facility] [facility]. In the ED, patient was mildly hypertensive to the 140s systolic, otherwise in rate controlled A-fib with rate in the 60s to 70s and stable on room air at rest. Orthostatic vitals were negative. Chest x-ray notable for mild vascular congestion. CBC and BMP were benign, but he was noted to have an elevated BNP [place] 4901. Troponin trend 25 > 33 > 22. EKG showed rate controlled A-fib with no ischemic changes. Given his presyncopal symptoms with generalized weakness and concern for heart failure exacerbation, hospitalist was contacted for admission. I saw the patient at bedside in the ED, was present. Patient was fairly fatigued and chronically ill-appearing but otherwise sitting back comfortably in bed, answering questions appropriately, in no acute distress. He denies any shortness of breath at rest but does report shortness of breath with exertion over the past several days. Denies any lower extremity swelling. Denies any UTI symptoms. No other acute concerns at this time. Will be admitted for further management. [facility] Medical History (Updated 12/18/24 @ 21:[address] Jaya Patel, DO) Wears hearing aid Thyroid disease High [...] tablet 100 mg PO DAILYCM gout 04/04/16 History atorvastatin 40 mg tablet 80 mg PO DAILY cholesterol 6 12/18/24 History ferrous sulfate 325 mg (65 mg 325 mg PO DAILY supplement 6 12/18/24 History iron) tablet isosorbide mononitrate 30 mg 30 mg PO DAILY chest pain 04/04/16 12/18/24 History tablet,extended release 24 hr levothyroxine 25 mcg tablet 50 mcg PO DAILY thyroid 04/04/16 0 12/18/24 History metoprolol tartrate 25 mg tablet 25 mg PO DAILY blood pressure 09/1312/18/24 History pantoprazole 40 mg tablet,delayed 40 mg PO BID reflux 04/04/1611/30 History release gabapentin 300 mg capsule 300 mg PO DAILY nerve pain 0 12/18/24 History tamsulosin 0.4 mg capsule 0.4 mg PO DAILY prostate 07/09/22 12/18/24 History aspirin 81 mg capsule 81 mg PO DAILY heart health 12/18/24 History finasteride 5 mg tablet 5 mg PO DAILY prostate 05/18/23 History warfarin 2 mg tablet (Jantoven) 2 mg PO DAILY blood thinner 12/18/24 History cefdinir 300 mg capsule 300 mg PO BID #10 caps 05/23/23 Un known Rx furosemide 40 mg tablet (Lasix) 40 mg PO DAILY #30 tabs 05/23/23 U nknown Rx hydrocodone-acetaminop hen 5-325mg 1 tab PO Q4H PRN PRN Pain 2 days 02/13/24 Unknown Rx 5mg-325mg #14 TABLETS Allergy/AdvReac Type Severity Reaction Status Date / Time hydrocodon (more content not included)... Normal [facility] Hematocrit Auto (Bld) [Volum e fraction]Ordered By: Anup Guerrero on 12-18-2024 Hematocrit (Bld) [Volume fraction] 33.7 % Low 40-54 [facility] Hemoglobin measurementOrdere d By: Anup Guerrero on 12-18-2024 Hemoglobin (Bld) [Mass/Vol] 10.7 g/dL Low 13.0-16.5 [facility] Immature granulocytes/100 WB C Auto (Bld)Ordered By: Anup Guerrero on 12-18-2024 Immature granulocytes/100 WBC (Bld) 1.300 % High 0.0-0.9 [facility] Comment on above: IG% - Immature Granu locytes (promyelocytes, myelocytes and metamyelocytes) > 1% indicates that a LEFT SHIFT is Present. Influenza virus A and B and SARS-CoV-2 (COVID-19) and Respiratory syncytial virus RNAOrdered By: Anup Cesar on 12-18-2024 SARS-CoV-2 (COVID-19) RNA SAIMA+probe Ql (Unsp spec) [facility] International normalized rat io (INR) calculationOrdered By: [facility] Sandovalsumeet on 12-18-2024 INR Coag (Bld) [Relative time] 3.9 {INR} [facility] Ketones Test strip Ql (U)Ord ered By: Medinaus Guerrero on 12-18-2024 Ketones Ql (U) Negative Negative [facility] L501.4021on 12-18-2024 Trop T High Sen 25 ng/L High <=22 [facility] Comment on above: Performed By: #### L 100.0500, L300.3900, L500.2500 #### [facility] [address] [place], [address] Lactic Acidon 12-18-2024 Lactate [Moles/Vol] 1.7 mmol/L Normal 0.0-2.0 [facility] Comment on above: Performed By: #### L 100.0500, L300.3900, L500.2500 #### [facility] [address] [place], [address] Lactate [Moles/Vol] 2.1 mmol/L Invalid Interpretation Code 0.0-2.0 [facility] Comment on above: Order Comment: Y Result Comment: Crit ical Result(s) Called ZARMSTRONG at:1555 by: AKASH??Results read back by same. Performed By: #### L 100.0500, L300.3900, L500.2500 #### [facility] [address] [place], [place], [id number] Lactic acid measurementOrder ed By: Anup Guerrero on 12-18-2024 Lactate [Moles/Vol] 1.7 mmol/L 0.0-2.0 [facility] Lactate [Moles/Vol] 2.1 mmol/L High 0.0-2.0 [facility] Comment on above: Critical Result(s) C jesus GTZ at:1555 by: AKASH Results read back by same. M100.678on 12-18-2024 M100.678 SARS-CoV-2 (COVID 19 ) Negative INFLUENZA A Negative INFLUENZA B Negative RSV PCR Negative Normal [facility] Comment on above: Performed By: #### L 400.0001 #### [facility] [address] [place], [place], [id number] MCV (mean corpuscular volume ) determinationOrdered By: Anup Guerrero on 12-18-2024 MCV (RBC) [Entitic vol] 91.8 fL 80-94 [facility] Mean corpuscular hemoglobin (MCH) determinationOrdered By: Anup Guerrero on 12-18-2024 MCH (RBC) [Entitic mass] 29.2 pg 27.0-32.0 [facility] Mean corpuscular hemoglobin concentration (MCHC) determinationOrdered By: Anup Guerrero on 12-18-2024 MCHC (RBC) [Mass/Vol] 31.8 g/dL Low 32-36 [facility] Mean platelet volume determi nationOrdered By: Anup Guerrero on 12-18-2024 Platelet mean volume (Bld) [Entitic vol] 10.3 fL 6.2-12.0 [facility] Microscopic analysis of urin e for red blood cells (RBC)Ordered By: Anup Guerrero on 12-18-2024 Microscopic analysis of urine for red blood cells (RBC) 0-5 SEEN /hpf 0-5 [facility] Monocyte percentageOrdered B y: Anup Guerrero on 12-18-2024 Monocytes/100 WBC (Bld) 8.9 % 0-10 [facility] Mucus LM Ql (Urine sed)Order ed By: Anup Guerrero on 12-18-2024 Mucus Ql (Urine sed) 0 SEEN /hpf [facility] Natriuretic peptide.B prohor melanie N-Terminal [Mass/volume] in Serum or PlasmaOrdered By: Anup Guerrero on 12-18-2024 Natriuretic peptide.B prohormone N-Terminal [Mass/Vol] 4901 pg/mL High <1800 [facility] Comment on above: Heart Failure Unlike ly: < 300 pg/mLHeart Failure Likely< 50 Years: > 450 pg/mL50-75 Years: > 900 pg/mL>75 Years: > 1800 pg/mL Neutrophil percentageOrdered By: Anup Guerrero on 12-18-2024 Neutrophils/100 WBC (Bld) 71.5 % High 47-70 [facility] Nitrite Test strip Ql (U)Ord ered By: Anup Guerrero on 12-18-2024 Nitrite Ql (U) Positive High Negative [facility] Nucleated red blood cell per centageOrdered By: Anup Guerrero on 12-18-2024 Nucleated RBC/100 WBC (Bld) [Ratio] 0 % 0-5 [facility] Platelet countOrdered By: Blanka Guerrero on 12-18-2024 Platelets (Bld) [#/Vol] 277 10*3/uL 150-450 [facility] Potassium measurement (mass/ volume)Ordered By: Anup Guerrero on 12-18-2024 Potassium (Unsp spec) [Mass/Vol] 4.4 mmol/L 3.3-5.1 [facility] Pro- Brain NATRIURETIC PEPTI Jacquie 12-18-2024 Natriuretic peptide B (Bld) [Mass/Vol] 4901 pg/mL High <=1800 [facility] Comment on above: Result Comment: Hear t Failure Unlikely: < 300 pg/mL Heart Failure Likely < 50 Years: > 450 pg/mL 50-75 Years: > 900 pg/mL >75 Years: > 1800 pg/mL Performed By: #### L 100.0500, L300.3900, L500.2500 #### [facility] [address] [place], [place], [id number] Protein Test strip Ql (U)Ord ered By: Anup Guerrero on 12-18-2024 Protein Ql (U) 30 mg/dl High Negative [facility] Prothrombin Time w/INRon INR Coag (PPP) [Relative time] 3.9 {INR} Normal [facility] Comment on above: Performed By: #### L 300.3900 #### [facility] [address] [place], [place], [id number] PT Coag (PPP) [Time] 39.3 s High 11.7-14.9 [facility] Comment on above: Performed By: #### L 300.3900 #### [facility] [address] [place], [place], [id number] Prothrombin timeOrdered By: Anup Guerrero on 12-18-2024 PT Coag (PPP) [Time] 39.3 s High 11.7-14.9 [facility] RBC Auto (Bld) [#/Vol]Ordere d By: Anup Guerrero on 12-18-2024 RBC (Bld) [#/Vol] 3.67 10*6/uL Low 4.6-6.2 [facility] Serum creatinine measurement (mass/volume)Ordered By: Anup Guerrero on 12-18-2024 Creatinine [Mass/Vol] 0.68 mg/dL Low 0.70-1.20 [facility] Serum glucose measurement (m ass/volume)Ordered By: Anup Guerrero on 12-18-2024 Glucose [Mass/Vol] 90 mg/dL 70-99 [facility] Serum or plasma calcium lourdes urement (mass/volume)Ordered By: Remus Guerrero on 12-18-2024 Calcium [Mass/Vol] 8.5 mg/dL 7.6-11.0 [facility] Serum or plasma urea nitroge n measurement (mass/volume)Ordered By: Remus Guerrero on 12-18-2024 Urea nitrogen [Mass/Vol] 8 mg/dL 4-19 [facility] Sodium levelOrdered By: Donnell Guerrero on 12-18-2024 Sodium [Moles/Vol] 139 mmol/L 133-145 [facility] Squamous epithelial cells de tection in urine sediment by light microscopyOrdered By: Anup Guerrreo on 12-18-2024 Epithelial cells.squamous LM Ql (Urine sed) 0-5 SEEN /hpf 0-5 [facility] Troponin T HS 2 HRon 025 Trop T High Sen 33 ng/L High <=22 [facility] Comment on above: Performed By: #### L 100.0500, L300.3900, L500.2500 #### [facility] [address] [place], [address] Troponin T HS 4 HRon 025 Trop T High Sen 22 ng/L Normal <=22 [facility] Comment on above: Performed By: #### L 100.0500, L300.3900, L500.2500 #### [facility] [address] [place], [address] Troponin T.cardiac [Mass/vol ume] in Serum or Plasma by High sensitivity methodOrdered By: Anup Guerrero on 12-18-2024 Troponin T.cardiac High sensitivity method [Mass/Vol] 22 ng/L <22 [facility] Troponin T.cardiac High sensitivity method [Mass/Vol] 33 ng/L High <22 [facility] Troponin T.cardiac High sensitivity method [Mass/Vol] 25 ng/L High <22 [facility] Urinalysis, Completeon 12-18 BACTERIA 1+ /hpf Normal None Seen [facility] Comment on above: Order Comment: CLEAN CATCH Performed By: #### L 400.0001 #### [facility] [address] [place], [address] EPI,SQUAMOUS 0-5 SEEN Normal 0-5 [facility] Comment on above: Order Comment: CLEAN CATCH Performed By: #### L 400.0001 #### [facility] [address] [place], [address] RBC 0-5 SEEN Normal 0-5 [facility] Comment on above: Order Comment: CLEAN CATCH Performed By: #### L 400.0001 #### [facility] [address] [place], [address] WBC 5-10 SEEN Normal 0-5 [facility] Comment on above: Order Comment: CLEAN CATCH Performed By: #### L 400.0001 #### [facility] [address] [place], [address] Mucus Ql (Urine sed) 0 SEEN Normal [facility] Comment on above: Order Comment: CLEAN CATCH Performed By: #### L 400.0001 #### [facility] [address] [place], [address] Urine clarityOrdered By: Medina Guerrero on 12-18-2024 Clarity (U) Sl. Cloudy Clear [facility] Urine color determinationOrd ered By: Anup Guerrero on 12-18-2024 Color (U) Yellow Yellow [facility] Urine cultureOrdered By: Medina Guerrero on 12-18-2024 Bacteria identified Cx Nom (U) Enterobacter cloacae complex Abnormal [facility] Bacteria identified Cx Nom (U) Pantoea spp Abnormal [facility] Urine glucose detectionOrder ed By: Anup Guerrero on 12-18-2024 Glucose Ql (U) Normal mg/dl Normal [facility] Urine leukocyte esterase det ection by dipstickOrdered By: Anup Guerrero on 12-18-2024 Leukocyte esterase Test strip Ql (U) 500 /ul High Negative [facility] Urine pHOrdered By: Anup Dubon gur on 12-18-2024 pH (U) 6.5 [pH] 5.0 - 8.0 [facility] Urine sediment bacteria coun t by microscopy (number/high power field)Ordered By: Anup Guerrero on 12-18-2024 Bacteria LM.HPF (Urine sed) [#/Area] 1 /[HPF] None Seen [facility] Urine specific gravity measu rementOrdered By: Anup Guerrero on 12-18-2024 Specific gravity (U) [Rel density] 1.010 1.002-1.030 [facility] Urine urobilinogen measureme ntOrdered By: Remus Guerrero on 12-18-2024 Urobilinogen Ql (U) 4 mg/dl High Normal [facility] White blood cell (WBC) count Ordered By: Anup Guerrero on 12-18-2024 WBC (Bld) [#/Vol] 6.1 10*3/uL 4.4-11.0 [facility] White blood cell countOrdere d By: Anup Guerrero on 12-18-2024 White blood cell count 5-10 SEEN /hpf 0-5 [facility] OUTSIDE BONE MARROW SLIDE RE VIEWon 12-17-2024 AP DISCLAIMER Normal [facility] Comment on above: Order Comment: Speci men Type: FORMALIN-FIXED PARAFFIN-EMBEDDED TISSUE SPECIMENOrdering Facility: AP Outside Review Address: , , Result Comment: Chuck st Developed Test (LDT) Disclaimer: Performance characteristics of immunohistochemical, immunofluorescent, and chromogenic in-situ hybridization tests have been determined by the performing laboratory within the [facility] Department of Pathology and Laboratory Medicine ([facility], [facility], [facility], [facility], [facility], [facility], or [facility]) in a manner consistent with CLIA requirements. One or more of these tests may not have been cleared or approved by the FDA. The [facility] Department of Pathology and Laboratory Medicine is regulated under CLIA as qualified to perform high-complexity testing. These tests are used for clinical purposes. These should not be regarded as investigational or for research. Positive and negative controls stain appropriately. Performed By: #### L [id number] ####[facility] LABCLIA [id number] [address] [place] CASE REPORT Normal [facility] Comment on above: Order Comment: Speci men Type: FORMALIN-FIXED PARAFFIN-EMBEDDED TISSUE SPECIMENOrdering Facility: AP Outside Review Address: , , Result Comment: Bone Marrow Pathology Report Case: [id number] Authorizing Provider: Tami Corado MD Collected: 12/17/2024 05:47 PM Ordering Location: [facility] Received: 12/17/2024 05:46 PM [facility] Pathologist: Marjorie Olsen DO Specimen: Slide(s), 11 SLIDES [id number] Performed By: #### L [id number] ####[facility] LABCLIA [id number] [address] [address] [facility] DIAGNOSIS COMMENT Normal [facility] Comment on above: Order Comment: Tapani tiffany Type: FORMALIN-FIXED PARAFFIN-EMBEDDED TISSUE SPECIMENOrdering Facility: AP Outside Review Address: , , Result Comment: Morp hologic review shows a hypercellular for age bone marrow (80-90%) due to granulocytic hyperplasia with megakaryocytic atypia and no increase in blasts (<5%). Molecular and cytogenetic studies showed a BCR/ABL1 rearrangement. 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 Correlation with the clinical findings is suggested. Performed By: #### L [id number] ####[facility] LABCLIA [id number] [place] [id number] [facility] FINAL DIAGNOSIS Normal [facility] Comment on above: Order Comment: Bautista allen Type: FORMALIN-FIXED PARAFFIN-EMBEDDED TISSUE SPECIMENOrdering Facility: AP Outside Review Address: , , Result Comment: Outs melissa slides from [facility], [place], [place] (labeled [id number], collected 08/29/2023): Bone marrow, aspirate smears, touch imprint, core biopsy, and clot section: - Chronic myeloid leukemia (CML), morphologically in chronic phase. - Stainable iron present. - See comment. Peripheral blood smear: - Neutrophilia (per report). at 0052 EDT Performed By: #### L [id number] ####[facility]CLIA [id number] [address] [address] [facility] FINAL PERFORMING LAB Normal [facility] Comment on above: Order Comment: Tapani tiffany Type: FORMALIN-FIXED PARAFFIN-EMBEDDED TISSUE SPECIMENOrdering Facility: AP Outside Review Address: , , Result Comment: Diag nostic interpretation performed at: [facility], [address] [facility], [address] [address] CLIA# [id number] Donor Services Technician: Baltazar Hightower MD Performed By: #### L [id number] ####[facility]CLIA [id number] [address] [place] MICROSCOPIC DESCRIPTION Normal [facility] Comment on above: Order Comment: Speci men Type: FORMALIN-FIXED PARAFFIN-EMBEDDED TISSUE SPECIMENOrdering Facility: AP Outside Review Address: , , Result Comment: SAMIR PHERAL BLOOD: CBC Differential (Manual) WBC N/A Neutrophils 74 % Hemoglobin N/A Lymphocytes 10 % MCV N/A Monocytes 2 % RDW-CV N/A Eosinophils 2 % Platelet Count N/A Basophils 7 % Metamyelocytes 4 % Myelocytes 1 % Morphology/Interpretation: CBC not included for review. Per outside bone marrow report, the findings are significant for neutrophilia. Morphologic review shows predominance of neutrophils with left shifted maturation and basophilia. BONE MARROW ASPIRATE & TOUCH IMPRINT: Result Normal Range 1 % Blasts 0-2 2 % Promyelocytes 1-5 88 % Myelos/Metas/Bands/Segs 32-72 3 % Eosinophils 1-6 1 % Basophils 0-1 0 % Monocytes 0-4 4 % Erythroid precursors 13-37 1 % Lymphocytes 7-23 0 % Plasma cells 0-2 Myeloid/Erythro (1.5-4): >10 Cells counted: 500 Iron stain result: Stainable iron present. Ring sideroblasts absent. Specimen Quality: Adequate (cellular and spicular aspirate smear; cellular touch imprint). Megakaryocytes: Present, predominance of small hypolobated forms. Erythropoiesis: Decreased in number. Progressive maturation. Granulopoiesis: Increased in number. Progressive maturation. BONE MARROW BIOPSY: Adequacy: Suboptimal due to small fragmented biopsy and aspiration artifact. Cellularity: Hypercellular for age (80-90%, estimation limited by aspiration artifact). ME ratio: Increased. Hematopoiesis: Trilineage maturation with granulocytic hyperplasia. Megakaryocytes: Adequate. Megakaryocyte morphology: Predominantly small hypolobated forms. Lymphoid infiltrate: No aggregates seen. Bone trabeculae: Unremarkable. Submitted immunohistochemical stains performed elsewhere on the bone marrow core biopsy are reviewed at [facility]. CD34 and CD117 show no increased numbers or clustering of blasts (<5%). CD61 highlights megakaryocytes. CLOT SECTION: Marrow particles: Many. Morphology: Similar to biopsy. ANCILLARY TESTS: Flow cytometry: Not performed and/or not included for review. 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 Please see complete outside report for additional details. FISH: Per outside pathology report, FISH for BCR/ABL1 showed BCR/ABL1 translocation detected with 200 interphase nuclei examined and revealed a BCR-ABL translocation in 96.5% of nuclei. Please see complete outside report for additional details. Molecular: Per outside pathology report, NGS showed no reportable genomic alterations were detected. Please see complete outside report for additional details. Performed By: #### L [id number] ####[facility] [id number] [address] CNPPeggy 11-[facility]-[address] [facility] JUAQUIN KHALIL ([id number]) 1945 M Date Time Provider Department 11/18/24 ALEXANDER RAMIREZ [facility] During your visit today, we recorded the [...] will be back up. Fax reports - [phone] Images - [phone] Joann Parikh [facility] Miriam 12/04/2024 1:23 PM Signed 12/04/24 - images [...] office for scheduling. Please call pt at [phone]. Patient Registration: Registration complete/updated: yes Insurance card(s) scanned in [facility] with in the past year: Yes: Date: 11/29/24 Pt's [employer] is inactive. Ok to communicate to pt via [employer] not asked Medical Records: Records in [facility] (internal CC records): No Imaging in [facility] (internal CC records): No Care Everywhere - queried yes, downloaded N/A Linked Outside Organizations (list): [facility] OSH Records Requested: yes Date: 12/04/24 Outside Hospital(s) requested records from: [facility] Received: yes Uploaded: Yes. Waiting on additional records: No. Missing (list): N/A OS Radiology Imaging Requested: no Date: N/A Outside Hospital(s) requested imaging from: [facility]. Imaging will be received via [...] of Date: 11/18/2024 Noted Allergy Reaction VICODIN (HYDROCODONE-ACETAMINO PHE*11/28/2005 12 - Shortness of Breath Date Reviewed: [...] [E03.9] Order(s):CONSULT TO CARDIOLOGY [9004] Order #: [id number]: 1 FUTURE CARDIOTHORACIC PREOP EVALUATION [] Order #: [id number]: 1 FUTURE LIPOPROTEIN (A) [SQLPA] Order #: [id number] FUTURE COMPREHENSIVE METABOLIC PANEL [SQCMP] Order #: [id number] FUTURE LACTATE DEHYDROGENASE [SQLD6] Order #: [id number] FUTURE COMPLETE BLOOD COUNT AND DIFFERENTIAL [SQCBCDIF] Order #: [id number] FUTURE URINALYSIS, DIPSTICK ONLY [SQUA] Order #: [id number] FUTURE TYPE AND SCREEN,30 DAY [JMGDFG14] Order #: [id number] FUTURE PROTHROMBIN TIME [SQPT] Order #: [id number] FUTURE ACTIVATED PARTIAL THROMBOPLASTIN TIME [SQPTT] Order #: [id number] FUTURE CONFIRM BLOOD TYPE [SQCONABO] Order #: [id number] FUTURE ECG COMPLETE [ECG01] Order #: [id number] FUTURE ECHO [355287] Order #: [id number]: 1 FUTURE US MAMMARY ARTERY [facility] [49990630] Order #: [id number] FUTURE US LEG VEIN MAP [facility] [] Order #: [id number] FUTURE US CAROTID ARTERIES [facility] [49990503] Order #: [id number] FUTURE CTA CHEST (GATED) W IVCON [8555287] Order #: [id number] FUTURE CREATININE BLD [SQCRET] Order #: [id number] FUTURE CONSULT TO HEMATOLOGY/ONCOLOGY [19990501] Order #: [id number]: [address] BRAIN WO IVCON [1390267] Order #: [id number] (more content not included)... Normal [facility] CNPNon 11-15-2024 CNPN Telephone ([facility]) JUAQUIN KHALIL ([id number]) 1945 M Date Time Provider Department 11/15/24 CARDIAC SURGEON - UNSPECIFIEDTOMN During your visit today, we recorded the following information about you: Reema Celis 11/15/2024 12:48 PM Signed Spk w/Mrs. Khalil. [...] of Date: 11/15/2024 Noted Allergy Reaction VICODIN (HYDROCODONE-ACETAMINO PHE*11/28/2005 12 - Shortness of Breath Date Reviewed: 08/24/2007 Reviewed by: Elizabeth Larsen Lpn - Reviewed Prescriptions as of 11/15/2024 - levothyroxine sodium(SYNTHROID 25 MCG TAB) Take one(1) tablet daily.for 2 weeks and then 2 tabas daily - lisinopril-hydrochloro thiazide 10-12.5 mg ORAL Tab Take one(1) tablet [...] [E66.9] 11/28/2005 PURE HYPERCHOLESTEROLEM [E78.00] 11/28/2005 AFTERCARE SHELTER ANTICOAG USE [Z79.01] 11/28/2005 HYPERTENSION NOS [I10] 11/28/2005 LUMBAGO [M54.50] 02/24/2006 CVA [I67.89] 08/01/2006 HYPOTHYROIDISM NOS [E03.9] 08/24/2007 Encounter Status:Closed by REEMA CELIS on 11/15/24 Normal [facility] Brain/Head without Contrasto n 03-22-2024 Brain/Head without Contrast [facility] Imaging Services [address] [place] [address] [id number] Brain/Head without Contrast MR#: [id number] Acct: [id number] Name: JUAQUIN KHALIL Rep #: [id number] : 1945 M 78 From: Kali Nails DO PCP: PR Hospital Status: REG ER Study: Brain/Head without Contrast Date of Exam: 03/02 06/24 Exam# [id number] Ordering Dr: Arian Rodgers DO [id number] STUDY: CT BRAIN WITHOUT CONTRAST REASON FOR [...] Signed: Kali Nails DO at 16:58 EST , CC: Dr. Arian Rodgers DO; [facility] Butadiene Convertor Operator: Signed Normal [facility] Emergency Department Summary on 03-22-2024 Emergency Department Summary [facility] Medical Records Department [address] [place] [address] Emergency Department Summary 03/22/24 MR#: [id number] Acct: [id number] Name: JUAQUIN KHALIL Rep #: [id number] : 1945 78 From: Arian Rodgers DO PCP: [facility] Status:DEP ER Location: ED HPI HPI [...] any movement. Patient denies any other injuries. [facility] Medical History (Updated 03/22/24 @ 17:[address] Arian Rodgers DO) Wears hearing aid Thyroid disease High [...] PO DAILY #30 tabs 05/23/23 Unknown Rx hydrocodone-acetaminop hen 5-325mg 1 tab PO Q4H PRN PRN [...] 16:21 Temperat (more content not included)... Normal [facility] Humerus min 2 Viewson 2023 Humerus min 2 Views [facility] Imaging Services [address] [place], [place] [address] Humerus min 2 Views MR#: [id number] Acct: [id number] Name: JUAQUIN KHALIL Rep #: [id number] : 1945 78 From: Kali Nails DO PCP: [facility] Status: REG ER Study: Humerus min 2 Views Date of Exam: 03/22/24 Exam# [id number] Ordering Dr: Arian Rodgers DO [id number] INDICATION: Injury/Pain EXAMINATION/TECHNIQUE: X-RAY - RIGHT XR [...] 17:41 EST Reading Location ID and State: [facility] / [place] Tel [phone], Service support , CC: Dr. Arian Rodgers DO; [facility] Butadiene Convertor Operator: Signed Normal [facility] Abdomen/Pelvis W IV Cont ONL Yon 02-13-2024 Abdomen/Pelvis W IV Cont ONLY [facility] Imaging Services [address] [place] [address] Abdomen/Pelvis W IV Cont ONLY MR#: [id number] Acct: [id number] Name: JUAQUIN KHALIL Rep #: [id number] : 1945 78 From: Reginald tanner MD PCP: [facility] Status: REG ER Study: Abdomen/Pelvis W IV Cont ONLY Date of Exam: Exam# [id number] Ordering Dr: Anup Guerrero [place] [id number] INDICATION: fall, right flank hematoma EXAMINATION: CT [...] EDT , CC: Dr. Anup Guerrero, DO; [facility] Butadiene Convertor Operator: Signed Normal [facility] Basic Metabolic Profile (BMP )on 02-13-2024 BUN/CRE 22.1 RATIO High 02-17 [facility] Comment on above: Performed By: #### L 100.0500, L300.3900, L500.2500 #### [facility] [address] [place], [address] CA,Total 8.8 mg/dL Normal 8.5-10.1 [facility] Comment on above: Performed By: #### L 100.0500, L300.3900, L500.2500 #### [facility] [address] [place], [address] Chloride [Moles/Vol] 102 mmol/L Normal 98-107 [facility] Comment on above: Performed By: #### L 100.0500, L300.3900, L500.2500 #### [facility] [address] [place], [address] CO2 [Moles/Vol] 29.0 mmol/L Normal 21.0-32.0 [facility] Comment on above: Performed By: #### L 100.0500, L300.3900, L500.2500 #### [facility] [address] [place], [address] Creatinine [Mass/Vol] 1.04 mg/dL Normal 0.70-1.30 [facility] Comment on above: Result Comment: The validity of the calculated GFR GFRAA in patients over 70 years has not been determined. Clinical correlation is essential. Performed By: #### L 100.0500, L300.3900, L500.2500 #### [facility] [address] [place], [address] ECRCL 68.53 ml/min Normal [facility] Comment on above: Performed By: #### L 100.0500, L300.3900, L500.2500 #### [facility] [address] [place], [address] EST GFR - AA 89 mL/min Normal >60 [facility] Comment on above: Result Comment: Afri can Lebanese GFR Calc Performed By: #### L 100.0500, L300.3900, L500.2500 #### [facility] [address] [place], [address] GAP 6 Normal 5-15 [facility] Comment on above: Performed By: #### L 100.0500, L300.3900, L500.2500 #### [facility] [address] [place], [address] GFR/1.73 sq M.predicted among non-blacks MDRD (S/P/Bld) [Vol rate/Area] 73 mL/min/{1.73_m2} Normal >60 [facility] Comment on above: Result Comment: Non- GFR Calc Performed By: #### L 100.0500, L300.3900, L500.2500 #### [facility] [address] [place], [address] Glucose [Mass/Vol] 113 mg/dL High 74-106 [facility] Comment on above: Result Comment: Fast ing Glucose result from 100 to 125 mg/dL suggests IMPAIRED HOMEOSTASIS per A.D.A. criteria. Performed By: #### L 100.0500, L300.3900, L500.2500 #### [facility] [address] [place], [address] Potassium [Moles/Vol] 4.1 mmol/L Normal 3.5-5.1 [facility] Comment on above: Performed By: #### L 100.0500, L300.3900, L500.2500 #### [facility] [address] [place], [address] Sodium [Moles/Vol] 137 mmol/L Normal 136-145 [facility] Comment on above: Performed By: #### L 100.0500, L300.3900, L500.2500 #### [facility] [address] [place], [address] Urea nitrogen [Mass/Vol] 23 mg/dL High 7-18 [facility] Comment on above: Performed By: #### L 100.0500, L300.3900, L500.2500 #### [facility] [address] [place], [address] CBC W/Diff, Automatedon 01-29 Absolute Lymph 1.10 X10 3/uL Normal 0.83-4.51 [facility] Comment on above: Performed By: #### L 500.2500, L100.0100 #### [facility] [address] [place], [address] Absolute Neut 6.9 X10 3/uL Normal 2.0-7.7 [facility] Comment on above: Performed By: #### L 500.2500, L100.0100 #### [facility] [address] [place], [address] Basophils/100 WBC (Bld) 0.3 % Normal 0-1 [facility] Comment on above: Performed By: #### L 500.2500, L100.0100 #### [facility] [address] [place], [address] Eosinophils/100 WBC (Bld) 2.3 % Normal 0-5 [facility] Comment on above: Performed By: #### L 500.2500, L100.0100 #### [facility] [address] [place], [address] Erythrocyte distribution width (RBC) [Ratio] 17.9 % High 11.6-14.6 [facility] Comment on above: Performed By: #### L 500.2500, L100.0100 #### [facility] [address] [place], [address] Hematocrit (Bld) [Volume fraction] 28.9 % Low 40-54 [facility] Comment on above: Performed By: #### L 500.2500, L100.0100 #### [facility] [address] [place], [address] Hemoglobin (Bld) [Mass/Vol] 9.2 g/dL Low 13.0-16.5 [facility] Comment on above: Performed By: #### L 500.2500, L100.0100 #### [facility] [address] [place], [address] IG% 0.900 Normal 0.0-0.9 [facility] Comment on above: Result Comment: IG% - Immature Granulocytes (promyelocytes, myelocytes and metamyelocytes) > 1% indicates that a LEFT SHIFT is Present. Performed By: #### L 500.2500, L100.0100 #### [facility] [address] [place], [address] Lymphocytes/100 WBC (Bld) 12.2 % Low 19-41 [facility] Comment on above: Performed By: #### L 500.2500, L100.0100 #### [facility] [address] [place], [address] MCH (RBC) [Entitic mass] 28.1 pg Normal 27.0-32.0 [facility] Comment on above: Performed By: #### L 500.2500, L100.0100 #### [facility] [address] [place], [address] MCHC (RBC) [Mass/Vol] 31.8 g/dL Low 32-36 [facility] Comment on above: Performed By: #### L 500.2500, L100.0100 #### [facility] [address] [place], [address] MCV (RBC) [Entitic vol] 88.4 fL Normal 80-94 [facility] Comment on above: Performed By: #### L 500.2500, L100.0100 #### [facility] [address] [place], [address] Monocytes/100 WBC (Bld) 7.2 % Normal 0-10 [facility] Comment on above: Performed By: #### L 500.2500, L100.0100 #### [facility] [address] [place], [address] Neutrophils/100 WBC (Bld) 77.1 % High 47-70 [facility] Comment on above: Performed By: #### L 500.2500, L100.0100 #### [facility] [address] [place], [address] Nucleated RBC (Bld) [#/Vol] 0.2 10*3/uL Normal 0-5 [facility] Comment on above: Performed By: #### L 500.2500, L100.0100 #### [facility] [address] [place], [address] Platelet mean volume (Bld) [Entitic vol] 10.8 fL Normal 6.2-12.0 [facility] Comment on above: Performed By: #### L 500.2500, L100.0100 #### [facility] [address] [place], [address] Platelets (Bld) [#/Vol] 237 10*3/uL Normal 150-450 [facility] Comment on above: Performed By: #### L 500.2500, L100.0100 #### [facility] [address] [place], [address] RBC (Bld) [#/Vol] 3.27 10*6/uL Low 4.6-6.2 [facility] Comment on above: Performed By: #### L 500.2500, L100.0100 #### [facility] [address] [place], [address] RDW SD 58.8 fl High 35.1-43.9 [facility] Comment on above: Performed By: #### L 500.2500, L100.0100 #### [facility] [address] [place], [address] WBC (Bld) [#/Vol] 9.0 10*3/uL Normal 4.4-11.0 [facility] Comment on above: Performed By: #### L 500.2500, L100.0100 #### [facility] [address] [place], [address] Emergency Department Summary on 02-13-2024 Emergency Department Summary [facility] Medical Records Department [address] [place] [address] Emergency Department Summary 02/13/24 MR#: [id number] Acct: [id number] Name: JUAQUIN KHALIL Rep #: [id number] : 1945 78 From: Anup Guerrero DO PCP: [facility] Status:[facility] ER Location: ED HPI History of Present Illness Chief Complaint: Lower Extremity Injury Detail of Chief Complaint: Ecchymosis and bruising above right hip Informant: patient and spouse/S.O. Narrative Narrative: Patient presents with ecchymosis and bruising about the right hip that initially was mild and started after a fall 4 days ago. Patient was seen at the [place] emergency department where he states he had a CT of his brain as well as an x-ray of his right arm and a CT of his hip. Patient states that there was no fracture of his hip. He did have a fracture of his proximal humerus and he is in a sling. Patient was referred to the [facility]. Patient states initially had a some just mild ecchymosis and bruising over the area of the right hip but since has significantly worsened. He complains of pain with walking. He is ambulatory. Patient is on Coumadin and his last INR was January 16 and was 3.2. [facility] Medical History Wears hearing aid [...] ???Last Taken ???Type warfarin 4 mg tablet () 4 mg PO SUTUWETHFRSA blood thinner 04/03/16 [...] PO DAILY #30 tabs 05/23/23 Unknown Rx hydrocodone-acetaminop hen 5-325mg 1 tab PO Q4H PRN PRN [...] Hematologic/Lymphatic Hemat (more content not included)... Normal [facility] Prothrombin Time w/INRon INR Coag (PPP) [Relative time] 3.6 {INR} Normal [facility] Comment on above: Performed By: #### L 500.2500, L100.0100 #### [facility] [address] [place], [address] PT Coag (PPP) [Time] 35.5 s High 11.7-14.9 [facility] Comment on above: Performed By: #### L 500.2500, L100.0100 #### [facility] [address] [place], [address] CT HEAD OR BRAIN W/O CONTRAS Ton [...] infarct. No acute abnormality identified. Interpreted by: Lamberto Bolden MD Preliminary Report By: Lamberto Bolden MD Electronically signed By Lamberto Bolden MD Dictated Date: 02/10/2024 2:04:31 PM Prelim Date: 02/10/2024 2:06:15 PM Sign Date: 02/10/2024 2:06:15 PM Ordering Provider: RORY GONZALES [facility] CT SPINE CERVICAL W/O CONTRA STon 02-10-2024 [...] to suggest blastic metastatic disease? Interpreted by: Lamberto Bolden MD Preliminary Report By: Lamberto Bolden MD Electronically signed By Lamberto Bolden MD Dictated Date: 02/10/2024 2:06:25 PM Prelim Date: 02/10/2024 2:11:14 PM Sign Date: 02/10/2024 2:11:14 PM Ordering Provider: RORY GONZALES [facility] XR HIP RIGHT W/PELVIS 4 VIEW Son [...] 02/10/2024 2:08:04 PM Ordering Provider: RORY GONZALES [facility] XR SHOULDER MINIMUM 2 VIEWS RIGHTon 02-10-2024 [...] 02/10/2024 2:05:47 PM Ordering Provider: RORY GONZALES [facility] Absolute lymphocyte countOrd ered By: Desmond Castaneda on 05-23-2023 Lymphocytes Auto (Unsp spec) [#/Vol] 1.27 10*3/uL 0.83-4.51 [facility] Basophil percentageOrdered B y: Desmond Castaneda on 05-23-2023 Basophil percentage Not Reportable [facility] Basophil percentage 3.6 mg/dL 2.5-4.9 [facility] Chloride [Moles/Vol] 106 mmol/L 98-107 [facility] Glucose [Mass/Vol] 99 mg/dL 74-106 [facility] Hemoglobin (Bld) [Mass/Vol] 13.2 g/dL 13.0-16.5 [facility] Neutrophils (Bld) [#/Vol] 14.2 10*3/uL 2.0-7.7 [facility] Potassium [Moles/Vol] 4.4 mmol/L 3.5-5.1 [facility] Sodium [Moles/Vol] 137 mmol/L 136-145 [facility] WBC (Bld) [#/Vol] 18.2 10*3/uL 4.4-11.0 [facility] Blood basophils/100 leukocyt esOrdered By: Desmond Castaneda on 05-23-2023 Basophils/100 WBC (Bld) 1 % 0-1 [facility] Blood eosinophils/100 leukoc ytesOrdered By: Desmond Castaneda on 05-23-2023 Eosinophils/100 WBC (Bld) 4 % 0-5 [facility] Blood leukocytes other/100 l eukocytesOrdered By: Desmond Castaneda on 01-23-2024 WBC other/100 WBC (Bld) 3 % [facility] Blood lymphocytes/100 leukoc ytesOrdered By: Desmond Castaneda on 05-23-2023 Lymphocytes/100 WBC (Bld) 7 % 19-41 [facility] Blood monocytes/100 leukocyt esOrdered By: Desmond Castaneda on 05-23-2023 Monocytes/100 WBC (Bld) 4 % 0-10 [facility] Blood promyelocytes/100 leuk ocytesOrdered By: Desmond Castaneda on 05-23-2023 Promyelocytes/100 WBC (Bld) 2 % 0-0 [facility] Blood segmented neutrophils/ 100 leukocytesOrdered By: Desmond Castaneda on 05-23-2023 Segmented neutrophils/100 WBC (Bld) 78 % 47-70 [facility] Determination of erythrocyte mean corpuscular volume (MCV)Ordered By: Desmond Castaneda on 05-23-2023 MCV (RBC) [Entitic vol] 86.0 fL 80-94 [facility] Erythrocyte distribution wid th ratioOrdered By: Desmond Castaneda on 05-23-2023 Erythrocyte distribution width (RBC) [Ratio] 15.9 % 11.6-14.6 [facility] Erythrocyte distribution wid th standard deviationOrdered By: Desmond Castaneda on 05-23-2023 Erythrocyte distribution width (RBC) [Entitic vol] 49.5 fL 35.1-43.9 [facility] Hematocrit Auto (Bld) [Volum e fraction]Ordered By: Desmond Castaneda on 05-23-2023 Hematocrit (Bld) [Volume fraction] 41.1 % 40-54 [facility] International normalized rat io (INR) calculationOrdered By: Desmond Castaneda on 05-23-2023 INR Coag (PPP) [Relative time] 2.5 {INR} [facility] - Chemistry and C hemistry - challengeOrdered By: Desmond Castaneda on 05-23-2023 CO2 [Moles/Vol] 27.0 mmol/L 21.0-32.0 [facility] Magnesium [Mass/Vol] 2.5 mg/dL 1.6-2.6 [facility] Urea nitrogen/Creatinine [Mass ratio] 17.0 mg/mg 10-20 [facility] - CoagulationOrde red By: Desmond Castaneda on 05-23-2023 PT Coag (PPP) [Time] 27.1 s 11.7-14.9 [facility] Laboratory - Hematology and Cell countsOrdered By: Desmond Castaneda on 05-23-2023 MCH (RBC) [Entitic mass] 27.6 pg 27.0-32.0 [facility] MCHC (RBC) [Mass/Vol] 32.1 g/dL 32-36 [facility] Myelocytes/100 WBC (Bld) 1 % 0-0 [facility] Platelets (Bld) [#/Vol] 316 10*3/uL 150-450 [facility] No Panel InformationOrdered By: Desmond Castaneda on 05-23-2023 Estimated Creatinine Clearance Calc 91.81 ml/min [facility] Estimated GFR (MDRD) Amer 117 mL/min >60 [facility] Comment on above: GFR Calc Estimated GFR (MDRD) Non-Af Amer 96 mL/min >60 [facility] Comment on above: Non- GFR Calc Ovalocyte detectionOrdered B y: Desmond Castaneda on 05-23-2023 Ovalocytes LM Ql (Bld) 1+ [facility] Platelet mean volume Lele-Ec ker (Bld) [Entitic vol]Ordered By: Desmond Castaneda on 05-23-2023 Platelet mean volume (Bld) [Entitic vol] 9.9 fL 6.2-12.0 [facility] RBC Auto (Bld) [#/Vol]Ordere d By: Desmond Castaneda on 05-23-2023 RBC (Bld) [#/Vol] 4.78 10*6/uL 4.6-6.2 [facility] Review by pathologistOrdered By: Desmond Castaneda on 05-23-2023 Pathologist review Lele (Unsp spec) [Interp] May [facility] Serum or plasma calcium lourdes urement (mass/volume)Ordered By: Desmond Castaneda on 05-23-2023 Calcium [Mass/Vol] 9.2 mg/dL 8.5-10.1 [facility] Serum or plasma creatinine m easurement (mass/volume)Ordered By: Desmond Castaneda on 05-23-2023 Creatinine [Mass/Vol] 0.82 mg/dL 0.70-1.30 [facility] Comment on above: The validity of the calculated GFR & GFRAA in patients over 70 years has not been determined. Clinical correlation is essential. Serum or plasma urea nitroge n measurement (mass/volume)Ordered By: Desmond Castaneda on 05-23-2023 Urea nitrogen [Mass/Vol] 14 mg/dL 7-18 [facility] Teardrop cell detectionOrder ed By: Desmond Castaneda on 05-23-2023 Dacrocytes LM Ql (Bld) 1+ [facility] Thin prep Papanicolaou smear with manual screeningOrdered By: Desmond Castaneda on 05-23-2023 Thin prep Papanicolaou smear with manual screening 4 5-15 [facility] Total cell countOrdered By: Desmond Castaneda on 05-23-2023 Cells counted Molgen (Bld/Tiss) [#] [address] [facility] Serum or plasma trough vanco mycin levelOrdered By: Jaya Patel on 05-22-2023 Vancomycin trough [Mass/Vol] 24.4 ug/mL 5.0-15.0 [facility] Comment on above: VANCOMYCIN STANDARED DRUG THERAPY TROUGH LEVEL: 5.0 - 15.0 mg/L VANCOMYCIN HIGH INTENSITY THERAPY TROUGH LEVEL: 15.0 - 20.0 mg/L High Intensity therapy recommended for serious lifethreatening infections include:- Oguywbskoi-Thsnsxjgrbmu-Ttaxjtmgu (Ventilator/Healtcare Associated)-Sepsis PLEASE CONTACT PHARMACY SERVICES (#[id number]) FOR INTERPRETATIONOF RESULTS. Serum or plasma vancomycin m easurement (mass/volume)Ordered By: Desmond Castaneda on 05-22-2023 Vancomycin [Mass/Vol] 14.9 ug/mL 0.0-15.0 [facility] Comment on above: VANCOMYCIN STANDARD DRUG THERAPY: CRITICAL VALUE IS > 15.0 mg/L VANCOMYCIN HIGH INTENSITY THERAPY: CRITICAL VALUE IS > 20.0 mg/L PLEASE CONTACT PHARMACY SERVICES (#[id number]) FOR INTERPRETATIONOF RESULTS. THIS RESULT DOES NOT REPRESENT A PEAK OR TROUGHLEVEL FOR THIS DRUG. Erythrocyte sedimentation ra teOrdered By: Chester Montano on 05-21-2023 ESR (Bld) [Velocity] 14 mm/h 0-20 [facility] Gram stain for investigation of transfusion reactionOrdered By: Desmond Coyle on 05-21-2023 Microscopic observation Gram stain Nom (Unsp spec) [facility] Basophil percentageOrdered B y: Desmond Coyle on 05-19-2023 Bilirubin [Mass/Vol] 1.30 mg/dL 0.20-1.00 [facility] Comment on above: For patients on eltr ombopag therapy, use of Dimension [place] TBIL is not recommended. Protein [Mass/Vol] 6.4 g/dL 6.4-8.2 [facility] - Chemistry and C hemistry - challengeOrdered By: Desmond Coyle on 05-19-2023 Albumin/Globulin [Mass ratio] 1.0 {ratio} 0.9-2.4 [facility] ALP [Catalytic activity/Vol] 220 U/L 45-117 [facility] ALT [Catalytic activity/Vol] 36 U/L 16-61 [facility] Globulin (S) [Mass/Vol] 3.2 g/dL 2.2-4.2 [facility] Natriuretic peptide B (Bld) [Mass/Vol] 419.5 pg/mL 0-100 [facility] No Panel InformationOrdered By: Desmond Coyle on 05-19-2023 Methicillin-Resist S.aureus DNA PCR Negative Negative [facility] Streptococcus pneumoniae Antigen (M [facility] RBC morphologyOrdered By: Bipin Coyle on 05-19-2023 RBC morphology finding Nom (Bld) N CYTIC NORMAL NORM C&C [facility] Serum or plasma thyroid stim ulating hormone (TSH) measurement (units/volume)Ordered By: Desmond Coyle on 05-19-2023 TSH Qn 0.85 uIU/mL 0.358-3.74 [facility] Thin prep Papanicolaou smear with manual screeningOrdered By: Desmond Coyle on 05-19-2023 Thin prep Papanicolaou smear with manual screening 3.2 g/dL 3.2-5.0 [facility] Thin prep Papanicolaou smear with manual screening 15 U/L 15-37 [facility] Basophil percentageOrdered B y: Leighton Drake on 05-18-2023 Basophil percentage 0-5 SEEN /hpf 0-5 [facility] Bilirubin Test strip Ql (U)O rdered By: Leighton Drake on 05-18-2023 Bilirubin Ql (U) Negative Negative [facility] Blood band neutrophil count as percentage of total leukocytesOrdered By: Leighton Drake on 05-18-2023 Band form neutrophils/100 WBC (Bld) 2 % 0-5 [facility] Blood metamyelocytes/100 [place] kocytesOrdered By: Leighton Drake on 05-18-2023 Metamyelocytes/100 WBC (Bld) 2 % 0-1 [facility] Blood platelet adequacy dete ction by light microscopyOrdered By: Leighton Drake on 05-18-2023 Platelets LM Ql (Bld) ADEQUATE ADEQ [facility] Direct bilirubinOrdered By: Leighton Drake on 05-18-2023 Bilirubin.direct [Mass/Vol] 0.42 mg/dL 0.00-0.30 [facility] Ketones Test strip Ql (U)Ord ered By: Leighton Drake on 05-18-2023 Ketones Ql (U) Negative Negative [facility] - Chemistry and C hemistry - challengeOrdered By: Leighton Drake on 05-18-2023 Lipase [Catalytic activity/Vol] 30 U/L 13-75 [facility] Comment on above: Please note:LIPASE r evised reference range effective 22. New Lipase methodology. Expected to produce lower values than the previous assay method. NEW Reference Range: 13 - 75 U/L Laboratory - Hematology and Cell countsOrdered By: Leighton Drake on 05-18-2023 Anisocytosis Ql (Bld) RARE [facility] Macrocytes detectionOrdered By: Leighton Drake on 05-18-2023 Macrocytes Ql (Bld) RARE [facility] Mucus LM Ql (Urine sed)Order ed By: Leighton Drake on 05-18-2023 Mucus Ql (Urine sed) 0 SEEN /hpf [facility] Nitrite Test strip Ql (U)Ord ered By: Leighton Drake on 05-18-2023 Nitrite Ql (U) Negative Negative [facility] No Panel InformationOrdered By: Leighton Drake on 05-18-2023 Troponin I High Sensitivity 12 pg/mL 3.0-78.0 [facility] Comment on above: Please Note: New Ash[place] t Units and Gender Specific Reference Ranges. For more information see Policy Stat Procedure [place] High Sensitivity Troponin (TNIH) and attachments. Urine RBC 0 SEEN /hpf 0-5 [facility] Protein Test strip Ql (U)Ord ered By: Leighton Drake on 05-18-2023 Protein Ql (U) Negative Negative [facility] Squamous epithelial cells de tection in urine sediment by light microscopyOrdered By: Leighton Drake on 05-18-2023 Epithelial cells.squamous LM Ql (Urine sed) 0 SEEN /hpf 0-5 [facility] Urine blood detectionOrdered By: Leighton Drake on 05-18-2023 RBC Ql (U) 10 /ul Negative [facility] Urine clarityOrdered By: [place] Drake on 05-18-2023 Clarity (U) Clear Clear [facility] Urine color determinationOrd ered By: Leighton Drake on 05-18-2023 Color (U) Yellow Yellow [facility] Urine glucose detectionOrder ed By: Leighton Drake on 05-18-2023 Glucose Ql (U) Normal mg/dl Normal [facility] Urine leukocyte esterase det ection by dipstickOrdered By: Leighton Drake on 05-18-2023 Leukocyte esterase Test strip Ql (U) 25 /ul Negative [facility] Urine pHOrdered By: Leighton nath on 05-18-2023 pH (U) 7.0 [pH] 5.0 - 8.0 [facility] Urine sediment bacteria coun t by microscopy (number/high power field)Ordered By: Leighton Drake on 05-18-2023 Bacteria LM.HPF (Urine sed) [#/Area] 0 /[HPF] None Seen [facility] Urine specific gravity measu rementOrdered By: Leighton Drake on 05-18-2023 Specific gravity (U) [Rel density] 1.005 1.002-1.030 [facility] Urine urobilinogen measureme ntOrdered By: Leighton Drake on 05-18-2023 Urobilinogen Ql (U) 4 mg/dl Normal [facility] Laboratory - CoagulationOrde red By: Iker Tom on 01-13-2023 INR Coag (Bld) [Relative time] 1.3 {INR} [facility] Comment on above: Critical Value > 4.0 Whole blood prothrombin time Ordered By: Iker Tom on 01-13-2023 PT Coag (Bld) [Time] 14.9 s 11.7-14.9 [facility] Absolute lymphocyte countOrd ered By: Collins Salguero on 07-10-2022 Lymphocytes Auto (Unsp spec) [#/Vol] 0.79 10*3/uL 0.83-4.51 [facility] Basophil percentageOrdered B y: Collins Salguero on 07-10-2022 Basophils/100 WBC (Bld) 1.2 % 0-1 [facility] Chloride [Moles/Vol] 102 mmol/L 98-107 [facility] Eosinophils/100 WBC (Bld) 0.9 % 0-5 [facility] Glucose [Mass/Vol] 100 mg/dL 74-106 [facility] Comment on above: Fasting Glucose resu lt from 100 to 125 mg/dL suggests IMPAIRED HOMEOSTASIS per A.D.A. criteria. Neutrophils (Bld) [#/Vol] 8.4 10*3/uL 2.0-7.7 [facility] Neutrophils/100 WBC (Bld) 81.4 % 47-70 [facility] Potassium [Moles/Vol] 4.3 mmol/L 3.5-5.1 [facility] Sodium [Moles/Vol] 137 mmol/L 136-145 [facility] WBC (Bld) [#/Vol] 10.4 10*3/uL 4.4-11.0 [facility] Blood erythrocytes count (nu mber/volume)Ordered By: Collins Salguero on 07-10-2022 RBC (Bld) [#/Vol] 4.68 10*6/uL 4.6-6.2 [facility] Blood hemoglobin measurement (mass/volume)Ordered By: Collins Salguero on 07-10-2022 Hemoglobin (Bld) [Mass/Vol] 13.3 g/dL 13.0-16.5 [facility] Blood lymphocytes/100 leukoc ytesOrdered By: Collins Salguero on 07-10-2022 Lymphocytes/100 WBC (Bld) 7.6 % 19-41 [facility] Blood monocytes/100 leukocyt esOrdered By: Collins Salguero on 07-10-2022 Monocytes/100 WBC (Bld) 4.5 % 0-10 [facility] Blood platelet mean volumeOr dered By: Collins Salguero on 07-10-2022 Platelet mean volume (Bld) [Entitic vol] 10.8 fL 6.2-12.0 [facility] Determination of erythrocyte mean corpuscular volume (MCV)Ordered By: Collins Salguero on 07-10-2022 MCV (RBC) [Entitic vol] 89.1 fL 80-94 [facility] Hematocrit Auto (Bld) [Volum e fraction]Ordered By: Collins Salguero on 07-10-2022 Hematocrit (Bld) [Volume fraction] 41.7 % 40-54 [facility] INR in Blood by Coagulation assayOrdered By: Collins Salguero on 07-10-2022 INR Coag (Bld) [Relative time] 2.2 {INR} [facility] Influenza virus A and B and SARS-CoV-2 (COVID-19) Ag panel - Upper respiratory specimOrdered By: Collins Salguero on 07-10-2022 SARS-CoV-2 (COVID-19) RNA SAIMA+probe Ql (Resp) [facility] - Chemistry and C hemistry - challengeOrdered By: Collins Salguero on 07-10-2022 CO2 [Moles/Vol] 28.0 mmol/L 21.0-32.0 [facility] Magnesium [Mass/Vol] 1.7 mg/dL 1.6-2.6 [facility] Natriuretic peptide B (Bld) [Mass/Vol] 216.2 pg/mL 0-100 [facility] Urea nitrogen/Creatinine [Mass ratio] 14.1 mg/mg 10-20 [facility] - CoagulationOrde red By: Collins Salguero on 07-10-2022 PT Coag (PPP) [Time] 23.9 s 11.7-14.9 [facility] Laboratory - Hematology and Cell countsOrdered By: Collins Salguero on 07-10-2022 Erythrocyte distribution width (RBC) [Entitic vol] 52.7 fL 35.1-43.9 [facility] Erythrocyte distribution width (RBC) [Ratio] 15.9 % 11.6-14.6 [facility] Immature granulocytes/100 WBC (Bld) 4.400 % 0.0-0.9 [facility] Comment on above: IG% - Immature Granu locytes (promyelocytes, myelocytes and metamyelocytes) > 1% indicates that a LEFT SHIFT is Present. MCH (RBC) [Entitic mass] 28.4 pg 27.0-32.0 [facility] Nucleated RBC/100 WBC (Bld) [Ratio] 0 % 0-5 [facility] MCHC Auto (RBC) [Mass/Vol]Or dered By: Collins Salguero on 07-10-2022 MCHC (RBC) [Mass/Vol] 31.9 g/dL 32-36 [facility] No Panel InformationOrdered By: Collins Salguero on 07-10-2022 Estimated Creatinine Clearance Calc 64.89 ml/min [facility] Estimated GFR (MDRD) Amer 125 mL/min >60 [facility] Comment on above: GFR Calc Estimated GFR (MDRD) Non-Af Amer 103 mL/min >60 [facility] Comment on above: Non- GFR Calc Platelets bldOrdered By: Andres Salguero on 07-10-2022 Platelets (Bld) [#/Vol] 176 10*3/uL 150-450 [facility] Serum or plasma calcium lourdes urement (mass/volume)Ordered By: Collins Salguero on 07-10-2022 Calcium [Mass/Vol] 8.7 mg/dL 8.5-10.1 [facility] Serum or plasma creatinine m easurement (mass/volume)Ordered By: Collins Salguero on 07-10-2022 Creatinine [Mass/Vol] 0.78 mg/dL 0.70-1.30 [facility] Comment on above: The validity of the calculated GFR & GFRAA in patients over 70 years has not been determined. Clinical correlation is essential. Serum or plasma urea nitroge n measurement (mass/volume)Ordered By: Collins Salguero on 07-10-2022 Urea nitrogen [Mass/Vol] 11 mg/dL 7-18 [facility] Thin prep Papanicolaou smear with manual screeningOrdered By: Collins Salguero on 07-10-2022 Thin prep Papanicolaou smear with manual screening 7 5-15 [facility] XR HAND MINIMUM 3 VIEWS LEFT [...] 04/22/2021 3:45:59 PM Ordering Provider: KALYAN KULKARNI [facility] (MD) Other 10-01-2001 CONVERTED ELECTRONIC SIGNATURE WILLIAMS DAVIS M.D., PATHOLOGIST (Electronic signature on file) Final Signed Out: 10/01/2001 16:13 [facility] CONVERTED FINAL DIAGNOSIS AORTIC VALVE, EXCISION - FIBROSIS, MARKED CALCIFICATION AND FOCAL MYXOID DEGENERATION. [facility] CONVERTED ORDERING PROVIDER Ordering Provider: GUANAKITO BERMAN [facility] Vital Signs Date Time Vital Sign Value Performing Clinician Facility 12-31-2024 15:44-0400 Body height 177.8 cm Lamberto Hernandez MD Work Phone: [facility] 12-31-2024 15:44-0400 Body mass index (BMI) [Ratio] 30.56 kg/m2 Lamberto Hernandez MD Work Phone: [facility] 12-31-2024 15:44-0400 Body weight 96.62 kg Lamberto Hernandez MD Work Phone: [facility] 12-31-2024 15:44-0400 Diastolic blood pressure 70 mm[Hg] Lamberto Hernandez MD Work Phone: [facility] 12-31-2024 15:44-0400 Heart rate 84 /min Lamberto Hernandez MD Work Phone: [facility] 12-31-2024 15:44-0400 Systolic blood pressure 145 mm[Hg] Lamberto Hernandez MD Work Phone: [facility] 12-21-2024 13:37-0400 Diastolic blood pressure 49 mm[Hg] [facility] 12-21-2024 13:37-0400 Heart rate 84 /min [facility] 12-21-2024 13:37-0400 Respiratory rate 16 /min [facility] 12-21-2024 13:37-0400 SaO2% (BldA) [Mass fraction] 94 % [facility] 12-21-2024 13:37-0400 Systolic blood pressure 117 mm[Hg] [facility] 12-21-2024 09:47-0400 Body temperature 98 [degF] [facility] 12-19-2024 13:12-0400 Body height 177.8 cm [facility] 12-19-2024 13:12-0400 Body weight 99.5 kg [facility] 12-18-2024 20:09-0400 Body mass index (BMI) [Ratio] 31.4 kg/m2 [facility] 12-18-2024 19:00-0400 Diastolic blood pressure 62 mm[Hg] [facility] 12-18-2024 19:00-0400 Heart rate 72 /min [facility] 12-18-2024 19:00-0400 Respiratory rate 29 /min [facility] 12-18-2024 19:00-0400 SaO2% (BldA) [Mass fraction] 97 % [facility] 12-18-2024 19:00-0400 Systolic blood pressure 155 mm[Hg] [facility] 12-18-2024 18:39-0400 Body temperature 97.9 [degF] [facility] 12-18-2024 14:12-0400 Body mass index (BMI) [Ratio] 32.6 kg/m2 [facility] 12-18-2024 14:120400 Body weight 103.2 kg [facility] 12-18-2024 14:10040 Body height 177.8 cm [facility] 02-10-2024 12:22-0400 Blood Pressure Cuff Size RORY BUTCHERMAUREEN DO [facility] 02-10-2024 12:22-0400 Blood Pressure Location RORY GUADALUPEMAUREEN DO [facility] 02-10-2024 12:22-0400 Blood Pressure Method RORY GONZALES DO [facility] 02-10-2024 12:22-0400 Body temperature 97.16 [degF] RORY BUTCHERMAUREEN DO [facility] 02-10-2024 12:22-0400 Diastolic Blood Pressure Non-Invasive 74 mm[Hg] RORY GUADALUPEMAUREEN DO [facility] 02-10-2024 12:22-0400 Heart rate 64 /min RORY GUADALUPEMAUREEN DO [facility] 02-10-2024 12:22-0400 Respiratory rate 18 /min RORY BUTCHERMAUREEN DO [facility] 02-10-2024 12:22-0400 Systolic Blood Pressure Non-Invasive 127 mm[Hg] RORY BUTCHERMAUREEN DO [facility] 05-23-2023 14:47-0500 SaO2% (BldA) [Mass fraction] 91 % [facility] 05-23-2023 14:05-0500 Body temperature 97.7 [degF] [facility] 05-23-2023 14:05-0500 Diastolic blood pressure 50 mm[Hg] [facility] 05-23-2023 14:05-0500 Heart rate 77 /min [facility] 05-23-2023 14:05-0500 Respiratory rate 16 /min [facility] 05-23-2023 14:05-0500 Systolic blood pressure 127 mm[Hg] [facility] 05-23-2023 06:00-0500 Body mass index (BMI) [Ratio] 33.4 kg/m2 [facility] 05-23-2023 06:00-0500 Body weight 105.6 kg [facility] 05-22-2023 13:25-0500 Body height 177.8 cm [facility] 05-20-2023 08:30-0500 Inhaled oxygen flow rate 2 L/min [facility] 01-13-2023 08:36-0400 Body temperature 97.5 [degF] [facility] 01-13-2023 08:36-0400 Diastolic blood pressure 85 mm[Hg] [facility] 01-13-2023 08:36-0400 Heart rate 73 /min [facility] 01-13-2023 08:36-0400 Respiratory rate 16 /min [facility] 01-13-2023 08:36-0400 SaO2% (BldA) [Mass fraction] 93 % [facility] 01-13-2023 08:36-0400 Systolic blood pressure 118 mm[Hg] [facility] 01-13-2023 07:21-0400 Body height 177.8 cm [facility] 01-13-2023 07:21-0400 Body mass index (BMI) [Ratio] 33.8 kg/m2 [facility] 01-13-2023 07:21-0400 Body weight 106.95 kg [facility] 12-29-2022 13:32-0400 Body mass index (BMI) [Ratio] 34.2 kg/m2 [facility] 12-29-2022 13:32-0400 Body temperature 96.2 [degF] [facility] 12-29-2022 13:32-0400 Body weight 108.18 kg [facility] 12-29-2022 13:32-0400 Diastolic blood pressure 88 mm[Hg] [facility] 12-29-2022 13:32-0400 Heart rate 84 /min [facility] 12-29-2022 13:32-0400 Respiratory rate 16 /min [facility] 12-29-2022 13:32-0400 Systolic blood pressure 148 mm[Hg] [facility] 07-10-2022 03:36-0400 Diastolic blood pressure 77 mm[Hg] [facility] 07-10-2022 03:36-0400 Heart rate 74 /min [facility] 07-10-2022 03:36-0400 Respiratory rate 15 /min [facility] 07-10-2022 03:36-0400 SaO2% (BldA) [Mass fraction] 98 % [facility] 07-10-2022 03:36-0400 Systolic blood pressure 150 mm[Hg] [facility] 07-09-2022 23:16-0500 Body temperature 98.7 [degF] [facility] 07-09-2022 23:14-0500 Body height 177.8 cm [facility] 07-09-2022 23:14-0500 Body mass index (BMI) [Ratio] 36.2 kg/m2 [facility] 07-09-2022 23:14-0500 Body weight 114.6 kg [facility] 04-22-2021 22:35-0500 Body temperature 97.52 [degF] DR LANI BERNAL DO [facility] 04-22-2021 22:35-0500 Diastolic blood pressure 75 mm[Hg] DR LANI BERNAL DO [facility] 04-22-2021 22:35-0500 Heart rate 64 /min DR LANI RIDER DO [facility] 04-22-2021 22:35-0500 Mean blood pressure 107 mm[Hg] DR LANI BERNAL DO [facility] 04-22-2021 22:35-0500 Respiratory rate 16 /min DR LANI BERNAL DO [facility] 04-22-2021 22:35-0500 Systolic blood pressure 170 mm[Hg] DR LANI BERNAL DO [facility] 04-22-2021 15:34-0500 Diastolic blood pressure 59 mm[Hg] KALYAN KULKARNI MD [facility] 04-22-2021 15:34-0500 Heart rate 74 /min KALYAN KULKARNI MD [facility] 04-22-2021 15:34-0500 Respiratory rate 18 /min KALYAN KULKARNI MD [facility] 04-22-2021 15:34-0500 Systolic blood pressure 165 mm[Hg] KALYAN KULKARNI MD [facility] 04-22-2021 14:44-0500 Body temperature 98.6 [degF] KALYAN KULKARNI MD [facility] 04-22-2021 14:44-0500 Diastolic blood pressure 79 mm[Hg] KALYAN KULKARNI MD [facility] 04-22-2021 14:44-0500 Heart rate 71 /min KALYAN KULKARNI MD [facility] 04-22-2021 14:44-0500 Respiratory rate 16 /min KALYAN KULKARNI MD [facility] 04-22-2021 14:44-0500 Systolic blood pressure 185 mm[Hg] KALYAN KULKARNI MD [facility] Encounters Encounter Date Encounter Type Care Provider Facility Start: 01-07-2025 End: 01-07-2025 ambulatory Marjorie Spivey APRN.CNP Work Phone: Pulmonary Medicine Start: 12-31-2024 End: 12-31-2024 ambulatory LAMBERTO HERNANDEZ MD Facility:[facility] Start: 12-31-2024 End: 12-31-2024 ambulatory ALEXANDER RAMIREZ Facility:[facility] Start: 12-31-2024 End: 12-31-2024 Patient encounter procedure Lamberto Hernandez MD Work Phone: Cardiology Comment on above: Chest pain, unspecif ied type (Primary Dx); Encounter for preprocedural cardiovascular examination; S/P aortic valve replacement; S/P CABG (coronary artery bypass graft); Hypertension, unspecified type; Nodular goiter; Right sided weakness; H/O: stroke; Chronic myeloid leukemia (HCC); Unspecified hypothyroidism Start: 12-31-2024 ambulatory ALEXANDER RAMIREZ Facility :[facility] Start: 12-31-2024 End: 12-31-2024 Patient encounter status Lamberto Hernandez MD Work Phone: [facility] Start: 12-31-2024 End: 12-31-2024 Subsequent hospital visit by physician Ct 2 Main Qb (I-Stat) Radiology Comment on above: Encounter for prepro cedural cardiovascular examination [Z01.810] Start: 12-31-2024 End: 12-31-2024 ambulatory [facility] Facility:[facility] Start: 12-23-2024 End: 12-23-2024 ambulatory [facility] Facility:[facility] Start: 12-23-2024 Encounter for preprocedural cardiovascular examination ALEXANDER RAMIREZ [facility] Start: 12-23-2024 End: 12-23-2024 Patient encounter procedure Tami Joel MD Work Phone: Hematology/Oncology Start: 12-23-2024 End: 12-23-2024 Patient encounter status Tami Joel MD Work Phone: [facility] Start: 12-23-2024 End: 12-23-2024 ambulatory Tami Joel MD Work Phone: Hematology/Oncology Comment on above: Encounter for prepro cedural cardiovascular examination; S/P aortic valve replacement; S/P CABG (coronary artery bypass graft); Hypertension, unspecified type; Nodular goiter; Right sided weakness; H/O: stroke; Chronic myeloid leukemia (HCC); Unspecified hypothyroidism Start: 12-20-2024 Non-patient / Non-visit Dr. Nikole Kohler MD -[facility] Work Phone: Start: 12-19-2024 Non-patient / Non-visit Dr. Mckenzie Duong MD -[facility] Work Phone: Start: 12-19-2024 ambulatory Moreno Bob Facility:[facility] Start: 12-19-2024 Non-patient / Non-visit Dr. Lazarus ALCAZAR -[facility] Start: 12-18-2024 End: 12-21-20[facility] Start: 12-18-2024 End: 12-21-2024 Evaluation and management of inpatient Dr. Brinda Duong MD -Progressive Care Unit Work Phone: Start: 12-18-2024 End: 12-21-2024 observation encounter [facility] -Progressive Care Unit Start: 12-18-2024 End: 12-18-2024 Emergency department patient visit [facility] -Emergency Department Work Phone: Start: 11-18-2024 End: 12-12-2024 Patient encounter status Alexander Ramirez MD Work Phone: [facility] Start: 11-18-2024 End: 12-12-2024 Telephone encounter Alexander Ramirez MD Work Phone: Cardiothoracic Comment on above: Referral Information Start: 11-15-2024 End: 11-15-2024 Telephone encounter Cardiac Surgeon - Unspecified [facility] Start: 03-22-2024 End: 03-22-2024 Emergency department patient visit [facility] Facility:[facility] Start: 02-13-2024 End: 02-13-2024 Emergency department patient visit [facility] Facility:[facility] Start: 02-10-2024 End: 02-10-2024 Emergency department patient visit RORY GONZALES DO [facility] Start: 05-23-2023 Non-patient / Non-visit [facility] Work Phone: Start: 05-22-2023 Non-patient / Non-visit [facility] Start: 05-22-2023 Non-patient / Non-visit [facility] Work Phone: Start: 05-21-2023 Non-patient / Non-visit [facility] Start: 05-20-2023 Non-patient / Non-visit [facility] Work Phone: Start: 05-20-2023 Non-patient / Non-visit [facility] Start: 05-19-2023 Non-patient / Non-visit [facility] Work Phone: Start: 05-19-2023 End: 05-23-2023 Evaluation and management of inpatient [facility]Progressive Care Unit Work Phone: Start: 01-13-2023 Non-patient / Non-visit [facility] Start: 01-13-2023 End: 01-13-2023 Admission to same day surgery center [facility]Endoscopy Work Phone: Start: 01-13-2023 End: 01-13-2023 ambulatory [facility] Work Phone: Start: 12-29-2022 End: 12-29-2022 Patient encounter procedure [facility] Work Phone: Start: 07-09-2022 End: 07-10-2022 Emergency department patient visit [facility]Emergency Department Start: 04-22-2021 End: 04-22-2021 Emergency department patient visit DR LANI BERNAL DO [facility] Start: 04-22-2021 End: 04-22-2021 Emergency department patient visit KALYAN KULKARNI MD [facility] Start: 09-28-2001 End: 09-28-2001 Patient encounter procedure Guanakito Berman Work Phone: [facility] Start: 09-28-2001 Results Only Guanakito Berman Work Phone: [facility] Procedures Date Procedure Procedure Detail Performing Clinician Start: 12-31-2024 Ct angiography chest w/contrast/noncontrast Alexander Ramirez MD Work Phone: Start: 12-31-2024 Ct head/brain w/o contrast material Alexander Ramirez MD Work Phone: Start: 12-23-2024 Antibody screen ALEXANDER RAMIREZ Comment on above: Order Comment: Specimen Type: BLOOD SPEC IMEN Ordering Facility: [facility] Address: [address] [place] [address] Performed By: #### T [id number] #### CC MAIN BLOOD BANK CLIA [id number] [address] [place] [address] OF ADAM Start: 12-21-2024 Estimated creatinine clearance [facility] Start: 12-21-2024 Plain chest X-ray [facility] Start: 12-20-2024 Nucleic acid assay [facility] Start: 12-18-2024 Urnls dip stick/tablet reagent auto microscopy [facility] Start: 12-18-2024 CT of head without contrast [facility] Start: 12-18-2024 Plain chest X-ray [facility] Start: 12-18-2024 Estimated creatinine clearance [facility] Start: 12-18-2024 SARS-CoV-2, Influenza & RSV (PCR) [facility] Start: 12-18-2024 Urine culture [facility] Start: 05-21-2023 Investigation of transfusion reaction [facility] Start: 05-20-2023 Plain chest X-ray [facility] Start: 05-19-2023 Streptococcus pneumoniae Antigen (M [facility] Start: 05-19-2023 X-ray of eye for foreign body [facility] Start: 05-19-2023 Magnetic resonance cholangiopancreatography [facility] Start: 05-18-2023 CT of thorax with contrast [facility] Start: 05-18-2023 Plain chest X-ray [facility] Start: 01-13-2023 Colonoscopy [facility] Start: 07-09-2022 Plain chest X-ray Start: 09-28-2001 CONVERTED SURGICAL PATHOLOGY Guanakito Cardona Work Phone: History of coronary artery bypass grafting S/P CABG (coronary artery bypass graft) Alexander Ramirez MD Work Phone: History of coronary artery bypass grafting S/P CABG (coronary artery bypass graft) Alexander Ramirez MD Work Phone: History of coronary artery bypass grafting S/P CABG (coronary artery bypass graft) Tami Joel MD Work Phone: History of coronary artery bypass grafting S/P CABG (coronary artery bypass graft) Ct (I-Stat) History of coronary artery bypass grafting S/P CABG (coronary artery bypass graft) Lamberto Hernandez MD Work Phone: SARS-CoV-2 & FLU Antigen (Rapid) Plan of Treatment Date Care Activity Detail Author Start: 12-24-2027 Diabetes Screening Diabetes Screenin g [facility] Start: 04-21-2025 End: 04-21-2025 Patient encounter procedure 04/21/2025 9:30 AM EST Office Visit [facility] Cardiology [address] [place] [id number] Erica Mathews MD [address], [address] [place] [id number] New patient referral [facility] Comment on above: New patient referral Start: 01-24-2025 End: 01-24-2025 Admission to same day surgery center 01/24/2025 1:00 PM EDT - 01/24/2025 1:46 PM EDT Surgery HOSP [employer] [address] [place] [address] Juaquin Aranda MD [address] [place] [address]ON[address] W IMAGE INJECT & INTERP W LT HEART CATH W INJECT LT VENTRGRAPHY HOSP [facility] Comment on above: CORONARY ANGIO W CAT H PLACE W IMAGE INJECT & INTERP W LT HEART CATH W INJECT LT VENTRGRAPHY Start: 01-24-2025 End: 01-24-2025 Cath plmt l hrt & arts w/njx & angio img s&i CORONARY ANGIO W CATH PLACE W IMAGE INJECT & INTERP W LT HEART CATH W INJECT LT VENTRGRAPHY Encounter for preprocedural cardiovascular examination S/P aortic valve replacement S/P CABG (coronary artery bypass graft) Nodular goiter H/O: stroke Chronic myeloid leukemia (HCC) 01/24/2025 1:00 PM EDT 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 [address] Encounter for preprocedural cardiovascular examination [Z01.810], S/P aortic valve replacement [Z95.2], S/P CABG (coronary artery bypass graft) [Z95.1], Nodular goiter [E04.9], H/O: stroke [Z86.73], Chronic myeloid leukemia (HCC) [C92.10] HOSP [facility] [employer] Comment on above: Encounter for prepro cedural cardiovascular examination [Z01.810], S/P aortic valve replacement [Z95.2], S/P CABG (coronary artery bypass graft) [Z95.1], Nodular goiter [E04.9], H/O: stroke [Z86.73], Chronic myeloid leukemia (HCC) [C92.10] Start: 01-24-2025 End: 01-24-2025 ambulatory 01/24/2025 12:30 PM EDT Procedure Cardiology [address] [place] [address] Juaquin Aranda MD [address] [facility] [place] [address] [facility] with Possible PCI Cardiology Comment on above: [facility] with Possible PC I Start: 01-24-2025 End: 01-24-2025 Patient encounter procedure 01/24/2025 12:30 PM EDT Office Visit Cardiology [address] [place] [address] Encounter for preprocedural cardiovascular examination [Z01.810] Cardiology Comment on above: Encounter for prepro cedural cardiovascular examination [Z01.810] Start: 12-31-2024 End: 12-31-2024 Patient encounter procedure Cardiology Comment on above: Valve Disease Encounter for prepro cedural cardiovascular examination [Z01.810] Start: 12-30-2024 Influenza vaccination Influenza Vacc ine (#1) [facility] Start: 12-21-2024 Patient discharge [facility] Start: 12-20-2024 Referral to occupati onal therapist [facility] Start: 12-20-2024 Referral to service [facility] Start: 12-18-[address] [facility] Start: 12-18-2024 Assessment of risk o f venous thromboembolism [facility] Start: 12-18-2024 Insertion of cathete r into peripheral vein [facility] Start: 12-18-2024 Measuring intake and output [facility] Start: 12-18-2024 Providing care accor ding to standard [facility] Start: 12-18-2024 [facility] Start: 12-18-2024 Following clinical pathway protocol [facility] Start: 12-18-2024 Hospital admission, emergency, from emergency room, medical nature [facility] Start: 12-18-2024 Admission procedure [facility] Start: 12-18-2024 [facility] Start: 12-18-2024 [facility] Start: 12-18-2024 Bacteria identified in Blood by Culture Blood Culture [facility] Start: 12-18-2024 Bacteria identified in Urine by Culture Urine Culture [facility] Start: 12-18-2024 Blood culture Blood Culture [facility] Start: 12-18-2024 Patient referral to dietitian [facility] Start: 12-12-2024 End: 03-13-2025 aPTT in Platelet poor plasma by Coagulation assay ACTIVATED PARTIAL THROMBOPLASTIN TIME Lab Routine Encounter for preprocedural cardiovascular examination S/P aortic valve replacement S/P CABG (coronary artery bypass graft) Hypertension, unspecified type Nodular goiter Right sided weakness H/O: stroke Chronic myeloid leukemia (HCC) Unspecified hypothyroidism Expected: 12/12/2024 (Approximate), Expires: 03/13/2025 [facility] Comment on above: Expected: 12/12/2024 (Approximate), Expires: 03/13/2025 Start: 12-12-2024 End: 03-13-2025 CBC W Auto Differential panel - Blood COMPLETE BLOOD COUNT AND DIFFERENTIAL Lab Routine Encounter for preprocedural cardiovascular examination S/P aortic valve replacement S/P CABG (coronary artery bypass graft) Hypertension, unspecified type Nodular goiter Right sided weakness H/O: stroke Chronic myeloid leukemia (HCC) Unspecified hypothyroidism Expected: 12/12/2024, Expires: 03/13/2025 [facility] Comment on above: Expected: 12/12/2024 , Expires: 03/13/2025 Start: 12-12-2024 End: 03-13-2025 Comprehensive metabolic 2000 panel - Serum or Plasma COMPREHENSIVE METABOLIC PANEL Lab Routine Encounter for preprocedural cardiovascular examination S/P aortic valve replacement S/P CABG (coronary artery bypass graft) Hypertension, unspecified type Nodular goiter Right sided weakness H/O: stroke Chronic myeloid leukemia (HCC) Unspecified hypothyroidism Expected: 12/12/2024, Expires: 03/13/2025 [facility] Comment on above: Expected: 12/12/2024 , Expires: 03/13/2025 Start: 12-12-2024 End: 03-13-2025 CONFIRM BLOOD TYPE CONFIRM BLOOD TYPE Blood Bank Routine Encounter for preprocedural cardiovascular examination S/P aortic valve replacement S/P CABG (coronary artery bypass graft) Hypertension, unspecified type Nodular goiter Right sided weakness H/O: stroke Chronic myeloid leukemia (HCC) Unspecified hypothyroidism Expected: 12/12/2024, Expires: 03/13/2025 [facility] Comment on above: Expected: 12/12/2024 , Expires: 03/13/2025 Start: 12-12-2024 End: 03-13-2025 Creatinine and Glomerular filtration rate.predicted panel - Serum, Plasma or Blood CREATININE BLD Lab Routine Encounter for preprocedural cardiovascular examination S/P aortic valve replacement S/P CABG (coronary artery bypass graft) Hypertension, unspecified type Nodular goiter Right sided weakness H/O: stroke Chronic myeloid leukemia (HCC) Unspecified hypothyroidism Expected: 12/12/2024, Expires: 03/13/2025 [facility] Comment on above: Expected: 12/12/2024 , Expires: 03/13/2025 Start: 12-12-2024 End: 03-13-2025 Lactate dehydrogenase [Enzymatic activity/volume] in Serum or Plasma LACTATE DEHYDROGENASE Lab Routine Encounter for preprocedural cardiovascular examination S/P aortic valve replacement S/P CABG (coronary artery bypass graft) Hypertension, unspecified type Nodular goiter Right sided weakness H/O: stroke Chronic myeloid leukemia (HCC) Unspecified hypothyroidism Expected: 12/12/2024, Expires: 03/13/2025 [facility] Comment on above: Expected: 12/12/2024 , Expires: 03/13/2025 Start: 12-12-2024 End: 03-13-2025 Lipoprotein a [Mass/volume] in Serum or Plasma LIPOPROTEIN (A) Lab Routine Encounter for preprocedural cardiovascular examination S/P aortic valve replacement S/P CABG (coronary artery bypass graft) Hypertension, unspecified type Nodular goiter Right sided weakness H/O: stroke Chronic myeloid leukemia (HCC) Unspecified hypothyroidism Expected: 12/12/2024, Expires: 03/13/2025 [facility] Work Phone: Comment on above: Expected: 12/12/2024 , Expires: 03/13/2025 Start: 12-12-2024 End: 03-13-2025 PT panel - Platelet poor plasma by Coagulation assay PROTHROMBIN TIME Lab Routine Encounter for preprocedural cardiovascular examination S/P aortic valve replacement S/P CABG (coronary artery bypass graft) Hypertension, unspecified type Nodular goiter Right sided weakness H/O: stroke Chronic myeloid leukemia (HCC) Unspecified hypothyroidism Expected: 12/12/2024 (Approximate), Expires: 03/13/2025 [facility] Comment on above: Expected: 12/12/2024 (Approximate), Expires: 03/13/2025 Start: 12-12-2024 End: 03-13-2025 Thyrotropin [Units/volume] in Serum or Plasma THYROID STIMULATING HORMONE Lab Routine Encounter for preprocedural cardiovascular examination S/P aortic valve replacement S/P CABG (coronary artery bypass graft) Hypertension, unspecified type Nodular goiter Right sided weakness H/O: stroke Chronic myeloid leukemia (HCC) Unspecified hypothyroidism Expected: 12/12/2024 (Approximate), Expires: 03/13/2025 [facility] Comment on above: Expected: 12/12/2024 (Approximate), Expires: 03/13/2025 Start: 12-12-2024 End: 03-13-2025 TYPE AND SCREEN,30 DAY TYPE AND SCREEN,30 DAY Blood Bank Routine Encounter for preprocedural cardiovascular examination S/P aortic valve replacement S/P CABG (coronary artery bypass graft) Hypertension, unspecified type Nodular goiter Right sided weakness H/O: stroke Chronic myeloid leukemia (HCC) Unspecified hypothyroidism Expected: 12/12/2024, Expires: 03/13/2025 [facility] Comment on above: Expected: 12/12/2024 , Expires: 03/13/2025 Start: 12-12-2024 End: 03-13-2025 URINALYSIS, DIPSTICK ONLY URINALYSIS, DIPSTICK ONLY Lab Routine Encounter for preprocedural cardiovascular examination S/P aortic valve replacement S/P CABG (coronary artery bypass graft) Hypertension, unspecified type Nodular goiter Right sided weakness H/O: stroke Chronic myeloid leukemia (HCC) Unspecified hypothyroidism Expected: 12/12/2024, Expires: 03/13/2025 [facility] Comment on above: Expected: 12/12/2024 , Expires: 03/13/2025 Start: 05-01-2024 Advance Directive Discussion Advance Directive Discussion [facility] Start: 12-31-2023 Covid-19 Vaccine () Covid-19 Vaccine () [facility] Start: 05-23-2023 Patient discharge [facility] Start: 05-22-[address] [facility] Start: 05-21-2023 Bacteria identified in Blood by Culture Blood Culture [facility] Start: 05-21-2023 Respiratory microbia l culture Respiratory Culture [facility] Start: 05-21-2023 End: 05-21-[address] [facility] Start: 05-21-2023 [facility] Start: 05-20-[address] developer [facility] Start: 05-19-2023 End: 05-19-[address] [facility] Start: 05-19-2023 End: 05-19-2023 Following clinical pathway protocol [facility] Start: 05-19-2023 Assessment of risk o f venous thromboembolism [facility] Start: 05-19-[address] [facility] Start: 05-19-2023 Insertion of cathete r into peripheral vein [facility] Start: 05-19-2023 Me[address] and output [facility] Start: 05-19-2023 Providing care accor ding to standard [facility] Start: 05-19-2023 Provision of activit y privileges [facility] Start: 05-19-2023 Referral to occupati onal therapist [facility] Start: 05-19-2023 Referral to service [facility] Start: 05-19-2023 End: 05-19-2023 [facility] Start: 05-19-2023 Referral to gastroenterology service [facility] Start: 05-19-2023 Admission procedure [facility] Start: 05-19-[address] [facility] Start: 05-19-2023 Patient referral to dietitian [facility] Start: 05-18-2023 Hospital admission, emergency, from emergency room, medical nature [facility] Start: 05-18-2023 Cancer antigen 19-[address] [facility] Start: 01-13-2023 Patient discharge [facility] Start: 2020 RSV Vaccine (1 - 1-d ose 75+ series) RSV Vaccine (1 - 1-dose 75+ series) [facility] Start: 12-31-2019 Influenza vaccination INFLUENZA (#1) [facility] Start: 2010 ADVANCE DIRECTIVE DISCUSSION ADVANCE DIRECTIVE DISCUSSION [facility] Start: 2010 PNEUMOVAX AGE 65 AND OVER WITH 5YR LOOKBACK (#1) PNEUMOVAX AGE 65 AND OVER WITH 5YR LOOKBACK (#1) [facility] Start: 08-28-1995 Pneumococcal Vaccine : 50+ (1 of 1 - PCV) Pneumococcal Vaccine: 50+ (1 of 1 - PCV) [facility] Start: 08-28-1995 SHINGRIX VACCINE (1 of 2) GRIGSBY GRIX VACCINE (1 of 2) [facility] Start: 08-28-1995 Tuberculosis screening COLOREC SLMIE CANCER SCREENING,SEE MODIFIER [facility] Start: 1990 DIABETES SCREEN DIABETES SCREEN [facility] Start: 1990 Diabetes Screening Diabetes Screenin g [facility] Start: 1980 LIPID SCREEN LIPID SCREEN [facility] Start: 1964 Urine microalbumin profile [facility] Start: 08-28-1963 ANNUAL PCP TEAM PROCESS COACH ESEQUIEL DISEASE VISIT ANNUAL PCP TEAM CHRONIC DISEASE VISIT [facility] Start: 08-28-1963 Anxiety Screening Anxiety Screening [facility] Start: 08-28-1963 BP CONTROLLED (<130/80) BP CONTROLLE D (<130/80) [facility] Start: 08-28-1963 Depression Screening Depression Scre ening [facility] Start: 08-28-1963 HEPATITIS C SCREENING HEPATITIS C SC NORA [facility] Cancer antigen 19-[address] [facility] Colonoscopy [facility] End: 01-11-2026 CT Head WO contrast CT BRAIN WO IVCON Radiology Routine Encounter for preprocedural cardiovascular examination S/P aortic valve replacement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 accurately reflect actual GFR. P.O.C.T. RESULTS: N/A December 31, 2024 TREATMENT: N/A IV SITE: Ambulatory: A peripheral IV was started in the Right forearm with a Angio cath: 22 gauge. IV SITE APPEARANCE: Clean,Dry and Intact SIGNATURE: Mary Ordonez RN PATIENT NAME: Juaquin Khalil DATE: December 31, 2024 TIME: 12:05 PM Radiology Service Progress Note PATIENT NAME: Juaquin Khalil DATE OF SERVICE: December 31, 2024 TIME: 1:08 PM PATIENT IDENTITY VERIFICATION COMPLETED USING TWO (2) IDENTIFIERS: Name and Date of confirmed by patient verbally and Name and Date of confirmed by identification band. FALL SCREENING: Has the patient had 2 falls in the last year or 1 fall with injury or currently using an Ambulatory Assistive Device (Walker, Cane, Wheelchair, Crutches, etc.)? No PATIENT GENDER DATA: Assigned male at PATIENT RELEVANT IMPLANT DATA REVIEWED: Yes PATIENT PRESENTS WITH AN IMPLANTABLE OR ATTACHED WEBBING WEAVER: No RADIOLOGY DEPARTMENT: CT; Exam(s) Completed: Brain and CTA Cardiac . Anesthesia: No PERIPHERAL IV DATA: Site assessment: Clean,Dry and Intact, Site disposition Discontinued SIGNED BY: RT Jeanne(R) December 31, 2024 1:08 PM documented in this encounter [facility] 12-31-2024 Note HNO ID: [id number] Author: MARY ORDONEZ RN Service: ? Author Type: Registered Nurse Type: Progress Notes Filed: 12/31/2024 12:29 Note Text: Radiology Service Progress Note DATE OF SERVICE: December 31, 2024 TIME: 12:05 PM PATIENT WEIGHT: 248lbs PATIENT IDENTITY VERIFICATION COMPLETED USING TWO (2) STANDARD IDENTIFIERS: Name and Date of confirmed by patient verbally and Name and Date of confirmed by identification band. FALL SCREENING: Has the patient had 2 falls in the last year or 1 fall with injury or currently using an Ambulatory Assistive Device (Walker, Cane, Wheelchair, Crutches, etc.)? No PATIENT GENDER DATA: Assigned male at ALLERGIES: Reviewed and unchanged CONTRAST ALLERGY: No EXAM: CT -CONTRAST INDUCED NEPHROPATHY RISK FACTORS: Patient age > 60 years and Congestive Heart Failure (CHF) CREATININE: Creatinine Date Value Ref Range Status 12/23/2024 0.85 0.73 - 1.22 mg/dL Final Estimated Glomerular Filtration Rate Date Value Ref Range Status 12/23/2024 88 >=60 mL/min/1.73m? Final Comment: Estimated Glomerular Filtration Rate (eGFR) is calculated using the 2020 CKD-EPI creatinine equation. This equation utilizes serum creatinine, sex, and age as parameters. The creatinine assay has traceable calibration to isotope dilution-mass spectrometry. Refer to KDIGO guidelines for clinical interpretation. In patients with unstable renal function, e.g. those with acute kidney injury, the eGFR may not accurately reflect actual GFR. P.O.C.T. RESULTS: N/A December 31, 2024 TREATMENT: N/A IV SITE: Ambulatory: A peripheral IV was started in the Right forearm with a Angio cath: 22 gauge. IV SITE APPEARANCE: Clean,Dry and Intact SIGNATURE: Mary Ordonez RN PATIENT NAME: Juaquin Khalil DATE: December 31, 2024 TIME: 12:05 PM [facility] 12-31-2024 Note HNO ID: [id number] Author: GUANAKITO DUPREE RT(R) Service: Radiology Author Type: Technologist Type: Progress Notes Filed: 12/31/2024 13:09 Note Text: Radiology Service Progress Note PATIENT NAME: Juaquin Khalil DATE OF SERVICE: December 31, 2024 TIME: 1:08 PM PATIENT IDENTITY VERIFICATION COMPLETED USING TWO (2) IDENTIFIERS: Name and Date of confirmed by patient verbally and Name and Date of confirmed by identification band. FALL SCREENING: Has the patient had 2 falls in the last year or 1 fall with injury or currently using an Ambulatory Assistive Device (Walker, Cane, Wheelchair, Crutches, etc.)? No PATIENT GENDER DATA: Assigned male at PATIENT RELEVANT IMPLANT DATA REVIEWED: Yes PATIENT PRESENTS WITH AN IMPLANTABLE OR ATTACHED WEBBING WEAVER: No RADIOLOGY DEPARTMENT: CT; Exam(s) Completed: Brain and CTA Cardiac . Anesthesia: No PERIPHERAL IV DATA: Site assessment: Clean,Dry and Intact, Site disposition Discontinued SIGNED BY: RT Jeanne(R) December 31, 2024 1:08 PM [facility] 12-23-2024 History of Present illness Narrative Images from the original note were not included. Initial Consult Note/ New Patient Note [facility] Juaquin Khalil ID: [id number] 12/23/2024 REFERRING PHYSICIAN: Alexander Vora [facility] [id number] PRIMARY CARE PHYSICIAN: Leanna Solares, AUTOMATIC LOG CUT OFF [employer] Chief Complaint: CML History Of Present Illness: (4 elements) Mr. 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 He feels better now, but he was hospitalized last week. Look below foe detail hematology history. Hematolgic/Oncologic Hx: [facility]: White blood cells were noted to be increasing -07/13/2023: Bone marrow biopsy was done and showed hypercellular marrow more than 90%, increased left shifted granulopoiesis, no increased blasts, consistent with chronic phase CML. BCR-ABL FISH was detected positive at 96%. Interestingly, BCR-ABL PCR was positive at a low level of 0.018% -08/2023: Patient was started on imatinib he had fatigue and GI symptoms -10/11/2023: Patient was switched to Dasatinib and was subsequently stopped due to feeling depressed -11/12/2023: Patient initiated Nilotinib. He has some low energy -04/10/2024: BCR-ABL was undetected -07/23/2024: BCR-ABL was undetected. -11/20/2024: CBC showed white blood cells of 5.9 K/?l, hemoglobin of 12.6 g/dL, platelets of 192 K/?l. Sodium and potassium were normal. Creatinine was 0.8 mg/deciliter. 11/21/2024: BCR-ABL was undetected Past Mx/ Sx/ FHx/ SOC Hx: PAST MEDICAL HISTORY Diagnosis Date Benign hypertensive heart disease without heart failure CAD (coronary artery disease) HLD (hyperlipidemia) HTN (hypertension) Hypothyroidism ALLERGIES Allergen Reactions Vicodin [Hydrocodon* Shortness of Breath PAST SURGICAL HISTORY Procedure Laterality Date RPLCMT AORTIC VALVE OPN W/STENTLESS TISSUE VALVE 2001 FAMILY HISTORY Problem Relation Age of Onset Cancer Father Hypertension Sister Cancer Father SOCIAL HISTORY[1] # PMHx, PSHx, FHx and SHx were reviewed and updated as needed. Review Of Systems: (10 elements) Constitutional: No fever, positive chills, positive fatigue, positive anorexia Skin: No rash, no pruritis, no discoloration, no abnormal pigmentation Eyes: No visual disturbance, no itching, no burning ENMT: positive loss of hearing, no otalgia, positive tinnitus, no epistaxis, no odynophagia, positive dysphagia, no congestion, no drainage, no neck pain, no neck stiffnes. Respiratory: positive cough, positive sputum production, no hemoptysis, positive dyspnea, no wheezing Cardiovascular: positive chest pain, positive palpitations, no orthopnea, no PND Gastrointestinal: positive abdominal pain, positive nausea, no emesis, no diarrhea, no constipation, no hematemesis, no hematochezia, no melena, positive black stools from bleeding Gentiurinary: No dysuria, no hematuria, no urinary frequency, positive urinary urgency, positive urinary incontinence Neurological: positive headache, no confusion, no dizziness, positive gait imbalance, no numbness, no focal weakness, no tremors Psychiatry: No abnormal insight, no change in mental status Musculoskeletal: positive arthralgia, positive myalgia, no muscle stiffness. Endocrine: positive unexpected weight change, no polyuria, no polydipsia, no polyphagia. Hematological/ Lymphatic: No bleeding, no bruising, no lymphoadenopathy Current Medications: levothyroxine sodium(SYNTHROID 25 MCG TAB) Take one(1) tablet daily.for 2 weeks and then 2 tabas daily lisinopril-hydrochlorothiazide 10-12.5 mg ORAL Tab Take one(1) tablet daily. TOPROL XL 100 MG 24 HR TAB Take one(1) tablet daily. COUMADIN 4 MG TAB Take one (1) tablet every day. COMPOUNDED PRESCRIPTION Cholesterol Med - Pt can't remember the name of it Physical Exam: (2 bullets in 9 areas) There were no vitals taken for this visit. Performance Status: 3- Capable of only limited selfcare, confined to bed/chair > 50% of waking hrs. General appearance: alert, in no acute distress Skin: No rashes, no lumps Head: normocephalic, atraumatic Eyes/ Oropharynx: Anicteric sclera. Extraocular movements are intact. Oropharynx: MMM Neck: Supple, no adenopathy; no bruits Lungs: clear to auscultation, no wheezing or rhonchi Heart: RRR without murmur, gallop, or rubs. No ectopy Abdomen: Abdomen soft, no tenderness. No masses, organomegaly Extremities: Extremities normal. No deformities or edema. Neuro: Oriented X 3, non-focal Psych: normal insight, normal perception, normal affect Hem/Lymph: No lymphoadenopathy, no splenomegaly. Labs Imaging/ Pathology Reports: Latest Ref Rng & Units 12/23/2024 CBC WBC 3.70 - 11.00 k/uL 7.21 RBC 4.20 - 6.00 m/uL 4.25 Hemoglobin 13.0 - 17.0 g/dL 12.3 Hematocrit 39.0 - 51.0 % 38.2 MCV 80.0 - 100.0 fL 89.9 MCH 26.0 - 34.0 pg 28.9 MCHC 30.5 - 36.0 g/dL 32.2 RDW-CV 11.5 - 15.0 % 15.9 Platelet Count 150 - 400 k/uL 333 MPV 9.0 - 12.7 fL 10.0 Baso% % 1.0 Abs Neut (ANC) 1.45 - 7.50 k/uL 4.92 Abs Lymph 1.00 - 4.00 k/uL 1.26 Abs Divide <0.87 k/uL 0.45 Abs Eosin <0.46 k/uL 0.29 Abs Baso <0.11 k/uL 0.07 NRBC /100 WBC 0.0 Latest Ref Rng & Units 12/23/2024 CMP Sodium 136 - 144 mmol/L 139 Potassium 3.7 - 5.1 mmol/L 4.1 Chloride 98 - 107 mmol/L 99 CO2 22 - 30 mmol/L 29 Glucose 74 - 99 mg/dL 121 BUN 9 - 24 mg/dL 9 Creatinine 0.73 - 1.22 mg/dL 0.85 EGFR >=60 mL/min/1.73m 88 Protein, Total 6.3 - 8.0 g/dL 6.2 Albumin 3.9 - 4.9 g/dL 3.5 Calcium 8.5 - 10.2 mg/dL 8.9 Bilirubin, Total 0.2 - 1.3 mg/dL 1.5 AST 14 - 40 U/L 31 ALT 10 - 54 U/L 59 Alkaline Phosphatase 38 - 113 U/L 213 INR Date Value Ref Range Status 12/23/2024 1.6 (H) 0.9 - 1.3 Final Comment: Vitamin K Antagonist (VKA) Therapeutic Range: INR 2 to 3 (Target INR of 2.5) Note: For patients treated with VKA drugs, such as warfarin, the [employer] 2012 Guideline recommends a therapeutic INR range of 2 to 3 (target INR of 2.5). This recommendation includes high-risk patients with antiphospholipid syndrome with previous arterial or venous thromboembolism, current-generation mechanical or bioprosthetic aortic heart valve replacement. Note: Patients with mechanical aortic valve replacement and additional risk factors for thromboembolic events (atrial fibrillation, previous thromboembolism, LV dysfunction, hypercoagulable conditions) or an older generation mechanical AVR (i.e., ball in-Cage) or any mechanical MVR should have a INR therapeutic range of 2.5 to 3.5 (target INR of 3). Marilynn BOLAND, et al. Chest 2012, 141:7S-47S Sangeetha ESTEVEZ, et al. [facility] 2017, 70: [phone] # Labs personally reviewed # Imaging studies None recent # Pathology Reports As above. Assessment and Plan: Mr. 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 # Chronic phase CML - 2021: White blood cells were noted to be increasing -07/13/2023: Bone marrow biopsy was done and showed hypercellular marrow more than 90%, increased left shifted granulopoiesis, no increased blasts, consistent with chronic phase CML. BCR-ABL FISH was detected positive at 96%. Interestingly, BCR-ABL PCR was positive at a low level of 0.018% -08/2023: Patient was started on imatinib he had fatigue and GI symptoms -10/11/2023: Patient was switched to Dasatinib and was subsequently stopped due to feeling depressed -11/12/2023: Patient initiated Nilotinib. He has some low energy -04/10/2024: BCR-ABL was undetected -07/23/2024: BCR-ABL was undetected. -11/20/2024: CBC showed white blood cells of 5.9 K/?l, hemoglobin of 12.6 g/dL, platelets of 192 K/?l. Sodium and potassium were normal. Creatinine was 0.8 mg/deciliter. 11/21/2024: BCR-ABL was undetected - Impression: This is a 79-year-old male with chronic phase CML, following milestones in terms of response and overall tolerating therapy. He is planned for aortic valve replacement. All tyrosine kinase inhibitors are known to cause increased cardiovascular complications, including nilotinib. These complications include increased risk of cardiac ischemia, arrhythmia and arterial thrombosis. Plan: - Hold nilotinib 5 days before surgery and resume postoperatively once the patient becomes clinically stable and hematologic parameters are adequate. It is okay to hold the treatment for 1 to 2 weeks. Any interruption in treatment would still increase the risk of relapse however the risk is not very high. The risk of cardiovascular complications from nilotinib in the perioperative setting would be high and the benefits of holding therapy outweighs the risk of relapse. This was discussed in details with the patient. -Patient will follow locally with his primary manager harbor oncologist - Consider using FISH for BCR-ABL to monitor disease instead of PCR, as it is unclear if the PCR is detecting the disease accurately I answered Mr. Khalil questions. he verbalized understanding the plan, including alternatives. Mr. Khalil agreed with these recommendations and plan. I spent a total of 60 minutes on the date of the service which included preparing to see the patient, [id number] patient care, completing clinical documentation, obtaining and/or reviewing separately obtained history, performing a medically appropriate examination, and counseling and educating the patient/family/caregiver. This note was partially dictated with the use of [employer] software. Please note that this dictation was completed with computer voice recognition software. Quite often unanticipated grammatical, syntax, homophones, and other interpretive errors are inadvertently transcribed by the computer software. Please disregard these errors. Please excuse any errors that have escaped final proofreading Consultation for an opinion for CML. My final recommendations will be communicated back to the requesting physician by way of shared Medical record or letter to requesting physician via US mail. Tami Joel MD, MPH Hematology and Medical Oncology, Leukemia Division 12/23/2024 1:49 PM cc: Alexander Ramirez [id number] [facility] [address] Leanna Solares, AUTOMATIC LOG CUT OFF [employer] [address] [facility] [id number] [1] Social History Tobacco Use Smoking status: Former Types: Pipe, Cigarettes Tobacco comments: Quit 1988 Substance Use Topics Alcohol use: No documented in this encounter [facility] 12-23-2024 Note HNO ID: [id number] Author: TAMI CORADO MD Service: ? Author Type: Physician Type: Progress Notes Filed: 12/23/2024 13:50 Note Text: Initial Consult Note/ New Patient Note [facility] Juaquin Khalil ID: [id number] 12/23/2024 REFERRING PHYSICIAN: Alexander Ramirez [address] [facility] [address] PRIMARY CARE PHYSICIAN: Leanna Solares APRN Chief Complaint: CML History Of Present Illness: (4 elements) Mr. 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 He feels better now, but he was hospitalized last week. Look below foe detail hematology history. Hematolgic/Oncologic Hx: [facility] - [facility]: White blood cells were noted to be increasing -07/13/2023: Bone marrow biopsy was done and showed hypercellular marrow more than 90%, increased left shifted granulopoiesis, no increased blasts, consistent with chronic phase CML. BCR-ABL FISH was detected positive at 96%. Interestingly, BCR-ABL PCR was positive at a low level of 0.018% -08/2023: Patient was started on imatinib he had fatigue and GI symptoms -10/11/2023: Patient was switched to Dasatinib and was subsequently stopped due to feeling depressed -11/12/2023: Patient initiated Nilotinib. He has some low energy -04/10/2024: BCR-ABL was undetected -07/23/2024: BCR-ABL was undetected. -11/20/2024: CBC showed white blood cells of 5.9 K/?l, hemoglobin of 12.6 g/dL, platelets of 192 K/?l. Sodium and potassium were normal. Creatinine was 0.8 mg/deciliter. 11/21/2024: BCR-ABL was undetected Past Mx/ Sx/ FHx/ SOC Hx: PAST MEDICAL HISTORY Diagnosis Date Benign hypertensive heart disease without heart failure CAD (coronary artery disease) HLD (hyperlipidemia) HTN (hypertension) Hypothyroidism ALLERGIES Allergen Reactions Vicodin [Hydrocodon* Shortness of Breath PAST SURGICAL HISTORY Procedure Laterality Date RPLCMT AORTIC VALVE OPN W/STENTLESS TISSUE VALVE 2001 FAMILY HISTORY Problem Relation Age of Onset Cancer Father Hypertension Sister Cancer Father SOCIAL HISTORY[1] # PMHx, PSHx, FHx and SHx were reviewed and updated as needed. Review Of Systems: (10 elements) Constitutional: No fever, positive chills, positive fatigue, positive anorexia Skin: No rash, no pruritis, no discoloration, no abnormal pigmentation Eyes: No visual disturbance, no itching, no burning ENMT: positive loss of hearing, no otalgia, positive tinnitus, no epistaxis, no odynophagia, positive dysphagia, no congestion, no drainage, no neck pain, no neck stiffnes. Respiratory: positive cough, positive sputum production, no hemoptysis, positive dyspnea, no wheezing Cardiovascular: positive chest pain, positive palpitations, no orthopnea, no PND Gastrointestinal: positive abdominal pain, positive nausea, no emesis, no diarrhea, no constipation, no hematemesis, no hematochezia, no melena, positive black stools from bleeding Gentiurinary: No dysuria, no hematuria, no urinary frequency, positive urinary urgency, positive urinary incontinence Neurological: positive headache, no confusion, no dizziness, positive gait imbalance, no numbness, no focal weakness, no tremors Psychiatry: No abnormal insight, no change in mental status Musculoskeletal: positive arthralgia, positive myalgia, no muscle stiffness. Endocrine: positive unexpected weight change, no polyuria, no polydipsia, no polyphagia. Hematological/ Lymphatic: No bleeding, no bruising, no lymphoadenopathy Current Medications: levothyroxine sodium(SYNTHROID 25 MCG TAB) Take one(1) tablet daily.for 2 weeks and then 2 tabas daily lisinopril-hydrochlorothiazide 10-12.5 mg ORAL Tab Take one(1) tablet daily. TOPROL XL 100 MG 24 HR TAB Take one(1) tablet daily. COUMADIN 4 MG TAB Take one (1) tablet every day. COMPOUNDED PRESCRIPTION Cholesterol Med - Pt can't remember the name of it Physical Exam: (2 bullets in 9 areas) There were no vitals taken for this visit. Performance Status: 3- Capable of only limited selfcare, confined to bed/chair > 50% of waking hrs. General appearance: alert, in no acute distress Skin: No rashes, no lumps Head: normocephalic, atraumatic Eyes/ Oropharynx: Anicteric sclera. Extraocular movements are intact. Oropharynx: MMM Neck: Supple, no adenopathy; no bruits Lungs: clear to auscultation, no wheezing or rhonchi Heart: RRR without murmur, gallop, or rubs. No ectopy Abdomen: Abdomen soft, no tenderness. No masses, organomegaly Extremities: Extremities normal. No deformities or edema. Neuro: Oriented X 3, non-focal Psych: normal insight, normal perception, normal affect Hem/Lymph: No lymphoadenopathy, no splenomegaly. Labs Imaging/ Pathology Reports: Latest Ref Rng AND U (more content not included)... [facility] 12-21-[address] [facility] 12-21-2024 Note [facility] Medical Records Department [address] [place] [address] Discharge Summary 12/21/24 1321 MR#: [id number] Acct: [id number] Name: JUAQUIN KHALIL Rep #: [id number] : 1945 79 From: Brinda Duong MD PCP: [facility] Status:DIS ANALILIA Location: [place] [address] Providers Date of Admission: 12/18/24 Date of Discharge: 12/21/24 [facility] Physician: [facility] Reason For Visit: PRESYNCOPAL SYMPTOMS W/ CONCERN FOR CHF Diagnosis Discharge Diagnosis (1) Acute exacerbation of chronic heart failure: Status: Acute Code(s): I50.9 - Heart failure, unspecified (2) Acute UTI: Status: Acute Code(s): N39.0 - Urinary tract infection, site not specified Plan #Acute on chronic heart failure in the setting of failing mechanical aortic valve * Admitted with complaint of near syncope and shortness of breath. He has mechanical aortic valve and had been told by his ux developer at [facility] that the valve was failing and he will require a new surgical valve replacement soon. * Chest x-ray showed vascular congestion and he also had elevated BNP on admission. Being diuresed with IV Lasix 40 mg twice daily. * Breathing treatments bronchodilators. Titrate oxygen to maintain saturation above 90%. * #Mechanical aortic valve: On Coumadin. INR was 3.9 on admission so Coumadin on hold. Will monitor INR with a goal of 2.5-3.5. #UTI: Urinalysis showed 1+ bacteria with positive nitrites and 500 leukocyte esterase. On IV ceftriaxone. Urine cultures growing gram negative valerio lactose head charrer; speciation is pending. #History of CAD s/p stents: On aspirin and high intensity statin as well as metoprolol #Hypertension: On metoprolol #Hypothyroidism: On Synthroid #GERD: On PPI #BPH with obstructive symptoms: On finasteride and Flomax #History of peripheral neuropathy: On gabapentin #History of gout: On allopurinol DVT prophylaxis: on coumadin. INR is down to 3.5 today, from 3.9 yesterday. Medications at Discharge Home Medications warfarin 4 mg tablet (Maytoven) 4 mg PO SUTUWETHFRSA blood thinner 04/03/16 allopurinol 100 mg tablet 100 mg PO DAILYCM gout 04/04/16 atorvastatin 40 mg tablet 80 mg PO DAILY cholesterol 04/04/16 ferrous sulfate 325 mg (65 mg iron) tablet 325 mg PO DAILY supplement 04/04/16 isosorbide mononitrate 30 mg tablet,extended release 24 hr 30 mg PO DAILY chest pain 04/04/16 levothyroxine 25 mcg tablet 50 mcg PO DAILY thyroid 04/04/16 metoprolol tartrate 25 mg tablet 25 mg PO DAILY blood pressure 04/04/16 pantoprazole 40 mg tablet,delayed release 40 mg PO BID reflux 04/04/16 gabapentin 300 mg capsule 300 mg PO DAILY nerve pain 01/10/20 tamsulosin 0.4 mg capsule 0.4 mg PO DAILY prostate 07/09/22 aspirin 81 mg capsule 81 mg PO DAILY heart health 01/10/23 finasteride 5 mg tablet 5 mg PO DAILY prostate 05/18/23 warfarin 2 mg tablet (Maytoven) 2 mg PO DAILY blood thinner 05/19/23 hydrocodone-acetaminophen 5-325mg 5mg-325mg 1 tab PO Q4H PRN PRN Pain 2 days #14 TABLETS 02/13/24 furosemide 40 mg tablet 40 mg PO BIDLX #60 tabs 12/21/24 nitrofurantoin monohydrate/macrocrystals 100 mg capsule 100 mg PO BID #8 caps 12/21/24 potassium chloride 20 mEq tablet,extended release (K-Tab) 20 meq PO DAILY #30 tabs 12/21/24 Hospital Course Operations None Summary of Care Provided Minutes Spent on Discharge: 42 Hospital Course: Patient is a 79-year-old male with a past medical history as outlined was admitted through the ED on 12/18/2024 with a complaint of presyncope and shortness of breath with exertion. Patient lives at home with his initially had decent functional baseline status. He had a mechanical aortic valve in place and had been following up with [facility] cardiology and says he was told that the valve was failing and he will need a replacement of the valve. He was also told that the valve was leaking. He came in with the above-mentioned symptoms and was noted to have an elevated proBNP of 4901. Troponins essentially remained flat. EKG showed controlled A-fib with no RVR and no acute ischemic changes. He was admitted and managed for acute exacerbation of heart failure in the setting of presyncope. He was diuresed with IV Lasix. He had 2D echo which showed EF of 60% and stable appearing mechanical aortic valve apparatus. His symptoms improved and he felt much better. He was weaned down to room air. He was discharged home on 12/21/2024 on p.o. Lasix 40 mg twice daily with potassium supplementation. He is follow-up with his primary care doctor and is also to follow-up with his ux developer within 1 to 2 weeks for evaluation of his leaky valve. Of note INR was elevated on admission at 3.9 by subsequently trended down to therapeutic level of 2.5-3.5. He was therefore continued on his Coumadin. He is follow-up with his primary care doctor for reevaluation of his Coumadin to determine INR dosing. O (more content not included)... [facility] 12-21-2024 Radiology Diagnostic study note [facility] Imaging Services [address] [place] [address] Chest 1 View (Portable) MR#: [id number] Acct: [id number] Name: JUAQUIN KHALIL Rep #: [id number] : 1945 M 79 From: Timothy Perera MD [facility] Status: ADM ANALILIA Study:Chest 1 View (Portable) Date of Exam: 12/21/24 Exam# [id number] Ordering Dr: Nikole Kohler MD PROCEDURE: CHEST 1 VIEW (PORTABLE) 12/21/2024 REASON FOR EXAM: DYSPNEA, COUGH TECHNIQUE: Frontal view of the chest. COMPARISON: Chest x-ray 12/18/2024. FINDINGS: Hardware: Status post median sternotomy. Heart: Mild cardiomegaly. Lungs: Clear. No pleural effusion or pneumothorax. Bones: No acute bony abnormalities. Other: RAD/Chest 1 View (Portable) IMPRESSION: No acute cardiopulmonary abnormalities. Reading Location: [facility] CC: Dr. 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 12-20-2024 Progress note Note Date/Time December 20, 2024 8:59pm [facility] Medical Records Department [address] [place] [address] Progress Note - Hospitalist 12/20/242057 MR#: [id number] Acct: [id number] Name: JUAQUIN KHALIL Rep #:[id number] : 1945 79 From: Autumn Kohler MD PCP: [facility] Status:ADM ANALILIA Location: [place] [address] Hospitalist Note Patient with onset notable coughing, notes abdominal muscle pain worsening as a result of ongoing coughing fits. Will obtain full respiratory viral panel, CXR upon admission 12/18/24 noted, will plan repeat CXR in AM to be cautious given coughing, will place on cough syrup guaifenesin with codeine given severity of coughing. 12/20/242058 <Electronically signed by Autumn Kohler MD> Cosigner Signature (if applicable): CC: ~ Signed [facility] Work Phone: 1(871) 653-552308-22-2025 Progress note [facility] Medical Records Department [address] [place] [address] Progress Note - Hospitalist 12/20/242057 MR#: [id number] Acct: [id number] Name: JUAQUIN KHALIL Rep #:[id number] : 1945 79 From: Autumn Kohler MD PCP: [facility] Status:ADM ANALILIA Location: [place] [address] Hospitalist Note Patient with onset notable coughing, notes abdominal muscle pain worsening as a result of ongoing coughing fits. Will obtain full respiratory viral panel, CXR upon admission 12/18/24 noted, will plan repeat CXR in AM to be cautious given coughing, will place on cough syrup guaifenesin with codeine given severity of coughing. 12/20/242058 Cosigner Signature (if applicable): CC: ~ Signed [facility]08-22-2025 Progress [facility] Note Date/Time December 20, 2024 1: 33pm [facility] Medical Records Department [address] [facility] [place] [address] Progress Note 12/19/24 1458 MR#: [id number] Acct: [id number] Name: JUAQUIN KHALIL Rep #:[id number] : 1945 79 From: Brinda Duong MD PCP: [facility] Status:ADM ANALILIA Location: [place] [address] Subjective Subjective Patient seen and examined with his nurse by his bedside. He had just finished having his 2D echo. He had no active complaints. Fever, chills, shortness of breath, palpitations, nausea or vomiting or any other symptoms. Review of systems otherwise negative. Objective Data Objective Data Vital Signs: Vital Signs Temp Pulse Resp BP Pulse Ox O2 Del Method 98.1 F 79 16 165/73 H 95 Room Air 12/19/24 10:17 12/19/24 10:26 12/19/24 10:17 12/19/24 10:17 12/19/24 10:17 12/19/24 10:17 Oxygen Delivery Method Room Air Weight: 219 lb 5.759 oz Body Mass Index (BMI) 31.4 Intake & Output: Intake and Output for Last 24 Hours 12/17/24 12/18/24 12/19/24 23:59 23:59 23:59 Intake Total 50 / 50 50 / 50 Output Total 1900 / 1900 Balance 50 / 50 -1850 / -1850 Lab / Micro Data 12/19/24 05:28 12/19/24 05:28 Labs: Laboratory Results - last 24 hr 12/18/24 14:55: WBC 6.1, RBC 3.67 L, Hgb 10.7 L, Hct 33.7 L, MCV 91.8, MCH 29.2,MCHC 31.8 L, RDW Std Deviation 54.5 H, RDW Coeff of Clement 16.0 H, Plt Count 277, MPV 10.3, Immature Gran % (Auto) 1.300 H, Neut % (Auto) 71.5 H, Lymph % (Auto) 14.0 L, Divide % (Auto) 8.9, Eos % (Auto) 3.8, Baso % (Auto) 0.5, Absolute Neuts (auto) 4.3, Absolute Lymphs (auto) 0.85, Nucleated RBC % 0, PT 39.3 H, INR 3.9, Sodium 139, Potassium 4.4, Chloride 103, Carbon Dioxide 25.3, Anion Gap 10, BUN 8, Creatinine 0.68 L, Estim Creat Clear Calc 90.10, Est GFR (MDRD) Non-Af 95, BUN/Creatinine Ratio 12.5, Glucose 90, Lactic Acid 2.1 H*, Calcium 8.5, TroponinT High Sens 25 H, NT pro BNP II 4901 H 12/18/24 16:10: Urine Color Yellow, Urine Clarity Sl. Cloudy, Urine pH 6.5, Ur Specific [place] 1.010, Urine Protein 30 H, Urine Glucose (UA) Normal, Urine Ketones Negative, Urine Occult Blood Negative, Urine Nitrite Positive H, Urine Bilirubin Negative, Urine Urobilinogen 4 H, Ur Leukocyte Esterase 500 H, Urine RBC 0-5 SEEN, Urine WBC 5-10 SEEN, Ur Squamous Epith Cells 0-5 SEEN, Urine Bacteria 1+, Urine Mucus 0 SEEN 12/18/24 16:45: Troponin T Hi Sens 2 Hr 33 H 12/18/24 19:07: Lactic Acid 1.7, Troponin T Hi Sens 4Hr 22 12/19/24 05:28: WBC 5.9, RBC 3.76 L, Hgb 11.0 L, Hct 33.8 L, MCV 89.9, MCH 29.3,MCHC 32.5, RDW Std Deviation 52.6 H, RDW Coeff of Clement 15.9 H, Plt Count 286, MPV10.1, PT 35.8 H, INR 3.5, Sodium 140, Potassium 3.4, Chloride 104, Carbon Dioxide 27.4, Anion Gap 9, BUN 7, Creatinine 0.67 L, Estim Creat Clear Calc 88.53, Est GFR (MDRD) Non-Af 95, BUN/Creatinine Ratio 10.1, Glucose 96, Calcium 7.9 Micro: Microbiology 12/18/24 16:10 Urine, Clean Catch Urine Culture - Preliminary GNR lactose head charrer Gram negative valerio 12/18/24 14:55 Mucosa - Nose SARS-CoV-2, Influenza & RSV (PCR) - Final Radiography Diagnostic Testing: Radiology Impression Chest X-Ray 12/18/24 15:05 IMPRESSION: Pulmonary findings as above. Reading Location: [facility] Brain CT 12/18/24 15:10 IMPRESSION: No acute intracranial abnormality. Left frontotemporal encephalomalacia. Reading Location: [facility] Echocardiogram 12/18/24 18:21 Interpretation Summary Normal LV size. Left ventricular systolic function is normal. The left ventricular ejection fraction is 60 %. Stable appearing mechanical aortic valve apparatus. Mean aortic valve gradient 22 mmHg. The left atrium is moderately enlarged. The right atrium is moderately enlarged. Contrast injection was performed. Ordering Physician: Jaya Patel Referring Physician: [facility] Performed By: Linda Chavez RCS Physical Exam Const alert, oriented x3 and no apparent distress General Appearance: cooperative HEENT normocephalic, head/scalp atraumatic, moist oral mucous membranes and oropharynxnormal Eyes EOMs intact bilaterally Neck supple and no JVD General: trachea midline Lymph Lymphatic: no lymphedema noted Resp Resp Narrative: mildly diminished breath sounds bibasally, no wheezes or crackles. On room air. Cardio regular rate, regular rhythm, S1 normal heart sound, S2 normal heart sound and no murmurs GI normal to inspection, nondistended, normoactive bowel sounds, soft to palpation and non-tender Extremity normal capillary refill, no clubbing, cyanosis or edema and no calf tenderness General Extremity: no tenderness to palpation of joints or extremities Skin General Skin Exam: no breakdown Neuro no focal motor deficits and no sensory deficits noted Motor Exam: strength 5/5 throughout and general weakness Psych thought process normal, cooperative and affect normal Appearance: appropriate Assessment & Plan Assessment/Plan (1) Acute exacerbation of chronic heart failure: (2) Acute UTI: PLAN: Plan #Acute on chronic heart failure in the setting of failing mechanical aortic valve * Admitted with complaint of near syncope and shortness of breath. He has mechanical aortic valve and had been told by his ux developer at [facility] that the valve was failing and he will require a new surgical valve replacement soon. * Chest x-ray showed vascular congestion and he also had elevated BNP on admission. Being diuresed with IV Lasix 40 mg twice daily. * Breathing treatments bronchodilators. Titrate oxygen to maintain saturation above 90%. * #Mechanical aortic valve: On Coumadin. INR was 3.9 on admission so Coumadin on hold. Will monitor INR with a goal of 2.5-3.5. #UTI: Urinalysis showed 1+ bacteria with positive nitrites and 500 leukocyte esterase. On IV ceftriaxone. Urine cultures growing gram negative valerio lactose head charrer; speciation is pending. #History of CAD s/p stents: On aspirin and high intensity statin as well as metoprolol #Hypertension: On metoprolol #Hypothyroidism: On Synthroid #GERD: On PPI #BPH with obstructive symptoms: On finasteride and Flomax #History of peripheral neuropathy: On gabapentin #History of gout: On allopurinol DVT prophylaxis: on coumadin. INR is down to 3.5 today, from 3.9 yesterday. Charges/Coding Visit Charges Inpatient E&M: 86143 Subs Hosp L2 12/19/24 1642 <Electronically signed by Brinda Duong MD> Brinda Duong MD Cosigner Signature (if applicable): CC: ~ Signed ADDENDUM by Dr. Brinda Duong MD on 12/20/24 at 1333 Addendum Urine cultures growing Enterobacter cloacae and Pantoea sp, both sensitive to nitrofurantoin. Will switch to PO nitrofurantoin x 5 days. 12/20/24 1333 <Electronically signed by Brinda wyman MD> Date _ Brinda Duong MD Cosigner Signature (if applicable): Date cc: ~* Signed [facility] Work Phone: 1(507) 762-902408-22-2025 Progress note [facility] Medical Records Department [address] [place] [address] Progress Note 12/19/24 1458 MR#: [id number] Acct: [id number] Name: JUAQUIN KHALIL Rep #:[id number] : 1945 79 From: Brinda Duong MD [facility]CP: [facility] Status:ADM ANALILIA Location: [place] [address] Subjective Subjective Patient seen and examined with his nurse by his bedside. He had just finished having his 2D echo. He had no active complaints. Fever, chills, shortness of breath, palpitations, nausea or vomiting or any other symptoms. Review of systems otherwise negative. Objective Data Objective Data Vital Signs: Vital Signs Temp Pulse Resp BP Pulse Ox O2 Del Method 98.1 F 79 16 165/73 H 95 Room Air 12/19/24 10:17 12/19/24 10:26 12/19/24 10:17 12/19/24 10:17 12/19/24 10:17 12/19/24 10:17 Oxygen Delivery Method Room Air Weight: 219 lb 5.759 oz Body Mass Index (BMI) 31.4 Intake & Output: Intake and Output for Last 24 Hours 12/17/24 12/18/24 12/19/24 23:59 23:59 23:59 Intake Total 50 / 50 50 / 50 Output Total 1900 / 1900 Balance 50 / 50 -1850 / -1850 Lab / Micro Data 12/19/24 05:28 12/19/24 05:28 Labs: Laboratory Results - last 24 hr 12/18/24 14:55: WBC 6.1, RBC 3.67 L, Hgb 10.7 L, Hct 33.7 L, MCV 91.8, MCH 29.2,MCHC 31.8 L, RDW Std Deviation 54.5 H, RDW Coeff of Clement 16.0 H, Plt Count 277, MPV 10.3, Immature Gran % (Auto) 1.300 H, Neut % (Auto) 71.5 H, Lymph % (Auto) 14.0 L, Divide % (Auto) 8.9, Eos % (Auto) 3.8, Baso % (Auto) 0.5, Absolute Neuts (auto) 4.3, Absolute Lymphs (auto) 0.85, Nucleated RBC % 0, PT 39.3 H, INR 3.9, Sodium 139, Potassium 4.4, Chloride 103, Carbon Dioxide 25.3, Anion Gap 10, BUN 8, Creatinine 0.68 L, Estim Creat Clear Calc 90.10, Est GFR (MDRD) Non- Af 95, BUN/Creatinine Ratio 12.5, Glucose 90, Lactic Acid 2.1 H*, Calcium 8.5, TroponinT High Sens 25 H, NT pro BNP II 4901 H 12/18/24 16:10: Urine Color Yellow, Urine Clarity Sl. Cloudy, Urine pH 6.5, Ur Specific [place] 1.010, Urine Protein 30 H, Urine Glucose (UA) Normal, Urine Ketones Negative, Urine Occult Blood Negative, Urine Nitrite Positive H, Urine Bilirubin Negative, Urine Urobilinogen 4 H, Ur Leukocyte Esterase 500 H, Urine RBC 0-5 SEEN, Urine WBC 5-10 SEEN, Ur Squamous Epith Cells 0-5 SEEN, Urine Bacteria 1+, Urine Mucus 0 SEEN 12/18/24 16:45: Troponin T Hi Sens 2 Hr 33 H 12/18/24 19:07: Lactic Acid 1.7, Troponin T Hi Sens 4Hr 22 12/19/24 05:28: WBC 5.9, RBC 3.76 L, Hgb 11.0 L, Hct 33.8 L, MCV 89.9, MCH 29.3,MCHC 32.5, RDW Std Deviation 52.6 H, RDW Coeff of Clement 15.9 H, Plt Count 286, MPV10.1, PT 35.8 H, INR 3.5, Sodium 140, Potassium 3.4, Chloride 104, Carbon Dioxide 27.4, Anion Gap 9, BUN 7, Creatinine 0.67 L, Estim Creat Clear Calc 88.53, Est GFR (MDRD) Non-Af 95, BUN/Creatinine Ratio 10.1, Glucose 96, Calcium 7.9 Micro: Microbiology 12/18/24 16:10 Urine, Clean Catch Urine Culture - Preliminary GNR lactose head charrer Gram negative valerio 12/18/24 14:55 Mucosa - Nose SARS-CoV-2, Influenza & RSV (PCR) - Final Radiography Diagnostic Testing: Radiology Impression Chest X-Ray 12/18/24 15:05 IMPRESSION: Pulmonary findings as above. Reading Location: [facility] Brain CT 12/18/24 15:10 IMPRESSION: No acute intracranial abnormality. Left frontotemporal encephalomalacia. Reading Location: [facility] Echocardiogram 12/18/24 18:21 Interpretation Summary Normal LV size. Left ventricular systolic function is normal. The left ventricular ejection fraction is 60 %. Stable appearing mechanical aortic valve apparatus. Mean aortic valve gradient 22 mmHg. The left atrium is moderately enlarged. The right atrium is moderately enlarged. Contrast injection was performed. Ordering Physician: Jaya Patel Referring Physician: [facility] Performed By: Linda Chavez RCS Physical Exam Const alert, oriented x3 and no apparent distress General Appearance: cooperative HEENT normocephalic, head/scalp atraumatic, moist oral mucous membranes and oropharynxnormal Eyes EOMs intact bilaterally Neck supple and no JVD General: trachea midline Lymph Lymphatic: no lymphedema noted Resp Resp Narrative: mildly diminished breath sounds bibasally, no wheezes or crackles. On room air. Cardio regular rate, regular rhythm, S1 normal heart sound, S2 normal heart sound and no murmurs GI normal to inspection, nondistended, normoactive bowel sounds, soft to palpation and non-tender Extremity normal capillary refill, no clubbing, cyanosis or edema and no calf tenderness General Extremity: no tenderness to palpation of joints or extremities Skin General Skin Exam: no breakdown Neuro no focal motor deficits and no sensory deficits noted Motor Exam: strength 5/5 throughout and general weakness Psych thought process normal, cooperative and affect normal Appearance: appropriate Assessment & Plan Assessment/Plan (1) Acute exacerbation of chronic heart failure: (2) Acute UTI: PLAN: Plan #Acute on chronic heart failure in the setting of failing mechanical aortic valve * Admitted with complaint of near syncope and shortness of breath. He has mechanical aortic valve and had been told by his ux developer at [facility] that the valve was failing and he will require a new surgical valve replacement soon. * Chest x-ray showed vascular congestion and he also had elevated BNP on admission. Being diuresed with IV Lasix 40 mg twice daily. * Breathing treatments bronchodilators. Titrate oxygen to maintain saturation above 90%. * #Mechanical aortic valve: On Coumadin. INR was 3.9 on admission so Coumadin on hold. Will monitor INR with a goal of 2.5-3.5. #UTI: Urinalysis showed 1+ bacteria with positive nitrites and 500 leukocyte esterase. On IV ceftriaxone. Urine cultures growing gram negative valerio lactose head charrer; speciation is pending. #History of CAD s/p stents: On aspirin and high intensity statin as well as metoprolol #Hypertension: On metoprolol #Hypothyroidism: On Synthroid #GERD: On PPI #BPH with obstructive symptoms: On finasteride and Flomax #History of peripheral neuropathy: On gabapentin #History of gout: On allopurinol DVT prophylaxis: on coumadin. INR is down to 3.5 today, from 3.9 yesterday. Charges/Coding Visit Charges Inpatient E&M: 40350 Subs Hosp L2 12/19/24 2717 Brinda Duong MD Cosigner Signature (if applicable): CC: ~ Signed ADDENDUM by Dr. Brinda Duong MD on 12/20/24 at 1333 Addendum Urine cultures growing Enterobacter cloacae and Pantoea sp, both sensitive to nitrofurantoin. Will switch to PO nitrofurantoin x 5 days. 12/20/24 1333 m MD> Date _ Brinda Duong MD Cosigner Signature (if applicable): Date cc: ~* Signed [facility]08-21-2025 Discharge summary Author Anup Guerrero [facility] Note Date/Time December 18, 2024 10 :30pm [facility] Medical Records Department [address] [place] [id number] Emergency Department Summary 12/18/24 MR#: [id number] Acct: [id number] Name: JUAQUIN KHALIL Rep #:[id number] : 1945 79 From: Anup Guerrero DO PCP: [facility] Status:ADM ANALILIA Location: [place] [address] HPI History of Present Illness Chief Complaint: Dizziness Detail of Chief Complaint: Dizziness and not feeling well Informant: patient Narrative Narrative: Patient presents to the emergency department with complaint of dizziness and notfeeling well for about a week. Patient states that she has had intermittent episodes for the last week especially worse with standing but can happen while seated as well. Today he was sitting and developed sudden onset of some blurredvision. Patient states that he could still see but everything looked like it was in a picture frame and that lasted less than a minute. Patient generally just feels weak. He is currently on Coumadin. He has had an aortic valve replacement in the past but states that he needs another one he is good to find out in about 5 days when that can happen. He denies chest pain. He has had a cough for about a week. Cough is nonproductive. He denies fever. He does describe some mild dysuria. [facility] Medical History (Updated 12/18/24 @ 18:[address] Anup Guerrero, DO) Wears hearing aid Thyroid disease High cholesterol Excessive bleeding Back pain Migraine headache Stroke/cerebrovascular accident History of IBS Gastric reflux Former smoker Sleep apnea Shortness of breath on exertion Leg cramps History of pain when walking History of edema History of echocardiogram History of stress test Cardiology follow-up encounter FH: bilateral hip replacements Home Medications ?Medication ?Instructions ?Recorded ?Last Taken ?Type warfarin 4 mg tablet (Jantoven) 4 mg PO SUTUWETHFRSA b lood thinner 04/03/16 01/08/23 History allopurinol 100 mg tablet 100 mg PO DAILYCM gout 04/0405/18/23 History atorvastatin 40 mg tablet 80 mg PO DAILY cholesterol 1 06/05/15 05/18/23 History ferrous sulfate 325 mg (65 mg 325 mg PO DAILY suppleme nt 04/04/16 05/18/23 History iron) tablet isosorbide mononitrate 30 mg 30 mg PO DAILY chest pain 04/04/16 05/18/23 History tablet,extended release 24 hr levothyroxine 25 mcg tablet 50 mcg PO DAILY thyroid 05/18/23 History metoprolol tartrate 25 mg tablet 25 mg PO DAILY blood pressure 04/04/16 05/18/23 History pantoprazole 40 mg tablet,delayed 40 mg PO BID reflux 04/04/16 05/18/23 History release gabapentin 300 mg capsule 300 mg PO DAILY nerve pain 0 01/10/20 05/18/23 History tamsulosin 0.4 mg capsule 0.4 mg PO DAILY prostate 03/2305/18/23 History aspirin 81 mg capsule 81 mg PO DAILY heart health 01/10/23 05/18/23 History finasteride 5 mg tablet 5 mg PO DAILY prostate 05/1805/18/23 History warfarin 2 mg tablet (Jantoven) 2 mg PO DAILY blood th inner 05/19/23 Unknown History cefdinir 300 mg capsule 300 mg PO BID #10 caps 05/23 Unknown Rx furosemide 40 mg tablet (Lasix) 40 mg PO DAILY #30 tab s 05/23/23 Unknown Rx hydrocodone-acetaminophen 5-325mg 1 tab PO Q4H PRN PRN Pain 2 days 02/13/24 Unknown Rx 5mg-325mg #14 TABLETS Allergy/AdvReac Type Severity Reaction Status Date / Time hydrocodone bitartrate (From Allergy Other Verified 03/22/24 15:48 Vicodin) Surgical History History of total right hip replacement History [...] fever(s), sweats or weight loss Eyes Eyes: Reports blurry vision; Denies change in vision or diplopia ENT ENT ED: Denies rhinorrhea or sore throat Cardiovascular Cardiovascular: Denies chest pain, orthopnea or racing heartbeat Respiratory/Chest Respiratory/Chest: Reports cough; Denies dyspnea, dyspnea on exertion, orthopneaor sputum Gastrointestinal Gastrointestinal: Denies abdominal pain, diarrhea, nausea or vomiting Genitourinary Genitourinary ED: Denies dysuria, hematuria or urinary frequency Musculoskeletal Musculoskeletal: Denies arthralgias, back pain, myalgias or neck pain Integumentary Denies abscess, Abrasions or rash Neurologic Neurologic: Reports other Details: Dizziness ; Denies headache(s) or weakness Psychiatric Psychiatric: Denies anxiety, depression or suicidal thoughts Endocrine Endocrinology: Denies polydipsia, polyphagia or polyuria Hematologic/Lymphatic Hematologic/Lymphatic: Denies easy bleeding, easy bruising or lymphadenopathy Allergic/Immunologic Allergic/Immunologic ED: Denies mouth swelling, tongue swelling or urticaria EXAM Physical Exam Const Vital Signs: 12/18/24 14:10 12/18/24 14:28 12/18/24 16:24 Temperature 98.1 F Temperature Source Oral Pulse Rate 60 66 Pulse Rate [Lying] 59 L Pulse Rate [Sitting (for 1 minute prior to obtaining)] 59 L Pulse Rate [Standing (for 1 minute prior to obtaining)] 66 Respiratory Rate 18 16 Blood Pressure 157/67 H 145/63 H Blood Pressure [Lying] 135/53 H Blood Pressure [Sitting (for 1 minute prior to obtaining)] 141/55 H Blood Pressure [Standing (for 1 minute prior to obtaining)] 140/56 H Blood Pressure Mean 97 90 Blood Pressure Mean [Lying] 80 Blood Pressure Mean [Sitting (for 1 minute prior to obtaining)] 83 Blood Pressure Mean [Standing (for 1 minute prior to obtaining)] 84 Pulse Ox 96 96 Oxygen Delivery Method Room Air Room Air 12/18/24 17:00 Temperature Temperature Source Pulse Rate 60 Pulse Rate [Lying] Pulse Rate [Sitting (for 1 minute prior to obtaining)] Pulse Rate [Standing (for 1 minute prior to obtaining)] Respiratory Rate 16 Blood Pressure 143/64 H Blood Pressure [Lying] Blood Pressure [Sitting (for 1 minute prior to obtaining)] Blood Pressure [Standing (for 1 minute prior to obtaining)] Blood Pressure Mean 90 Blood Pressure Mean [Lying] Blood Pressure Mean [Sitting (for 1 minute prior to obtaining)] Blood Pressure Mean [Standing (for 1 minute prior to obtaining)] Pulse Ox 96 Oxygen Delivery Method Room Air Positive well nourished and well developed General Appearance ED: well developed and NAD HEENT Reports TM's clear and moist mucous membranes normocephalic and atraumatic; Negative for trauma or tenderness Tympanic Membrane ED: Yes TM's clear Eyes PERRL and EOMs intact bilaterally General Eye ED: Negative for pale conjunctiva or scleral icterus Neck no lymphadenopathy, supple and no JVD General: Negative for tenderness Chest Wall inspection of chest normal and palpation of chest normal Chest: Negative for tenderness Resp normal respiratory effort and clear to auscultation bilaterally Effort and Inspection: Negative for respiratory distress or pain with movement Auscultation: Negative for rhonchi, wheezes or diminished lung sounds Cardio regular rate, regular rhythm, S1 normal heart sound and S2 normal heart sound Peripheral Pulses: pulses 2+ throughout GI normal to inspection, nondistended, normoactive bowel sounds, soft to palpation,non-tender, non-distended and no masses Back/Spine no CVA tenderness and no thoracic nor lumbar tenderness Extremity normal to inspection General Extremety ED: Negative for edema General Extremity: Negative for edema Neuro oriented x3, CN's II-XII intact bilaterally, no sensory deficits noted and gait normal Sensorium / Orientation: awake, alert, oriented to person, oriented to place andoriented to time Motor Exam: strength 5/5 throughout and strength abnormal Psych mental status grossly normal Skin no rashes or lesions noted and no wounds MDM MDM MDM Narrative Medical decision making narrative: Patient presents with multiple complaints. He has had intermittent chest discomfort. He complains of dizziness. Complains of some blurred vision today. He has had some mild dysuria. He has had a cough for about a week. IV line established. Orthostatic vital signs obtained were negative. CBC with differential obtained showed a white count of 6.1 with hemoglobin 10.7 and platelet count 277. Chemistries unremarkable. BNP was elevated 4009 101. First troponin was mildly elevated 25 and delta troponin was elevated at 33. Urinalysis with some signs of infection and urine culture was sent. He was ordered Rocephin 1 g IV. Patient's delta troponin is positive. CT scan of the brain without contrast was unremarkable. Will discuss case with hospitalist to evaluate for admission. It is unclear if his cough is infectious versus relatedto some mild CHF. Lab Data Attestation: I reviewed the patient's lab results. Labs: Laboratory Results - last 24 hr 12/18/24 12/18/24 12/18/24 14:55 16:10 16:45 WBC 6.1 RBC 3.67 L Hgb 10.7 L Hct 33.7 L MCV 91.8 MCH 29.2 MCHC 31.8 L RDW Std Deviation 54.5 H RDW Coeff of Clement 16.0 H Plt Count 277 MPV 10.3 Immature Gran % (Auto) 1.300 H Neut % (Auto) 71.5 H Lymph % (Auto) 14.0 L Divide % (Auto) 8.9 Eos % (Auto) 3.8 Baso % (Auto) 0.5 Absolute Neuts (auto) 4.3 Absolute Lymphs (auto) 0.85 Nucleated RBC % 0 PT 39.3 H INR 3.9 Sodium 139 Potassium 4.4 Chloride 103 Carbon Dioxide 25.3 Anion Gap 10 BUN 8 Creatinine 0.68 L Estim Creat Clear Calc 90.10 Est GFR (MDRD) Non-Af 95 BUN/Creatinine Ratio 12.5 Glucose 90 Lactic Acid 2.1 H* Calcium 8.5 Troponin T High Sens 25 H Troponin T Hi Sens 2 Hr 33 H NT pro BNP II 4901 H Urine Color Yellow Urine Clarity Sl. Cloudy Urine pH 6.5 Ur Specific [place] 1.010 Urine Protein 30 H Urine Glucose (UA) Normal Urine Ketones Negative Urine Occult Blood Negative Urine Nitrite Positive H Urine Bilirubin Negative Urine Urobilinogen 4 H Ur Leukocyte Esterase 500 H Urine RBC 0-5 SEEN Urine WBC 5-10 SEEN Ur Squamous Epith Cells 0-5 SEEN Urine Bacteria 1+ Urine Mucus 0 SEEN Radiography Diagnostic Testing: Clinical Impression(s) from Imaging Studies Chest X-Ray 12/18/24 15:05 IMPRESSION: Pulmonary findings as above. Reading Location: [facility] Brain CT 12/18/24 15:10 IMPRESSION: No acute intracranial abnormality. Left frontotemporal encephalomalacia. Reading Location: [facility] 1 view chest x-ray obtained interpreted by myself as no evidence of infiltrate or pneumothorax or acute disease process. Radiology felt there may be some mildpulmonary congestion. EKG Initial EKG: Attestation: I personally reviewed and interpreted this EKG as follows: Comments: Atrial fibrillation with ventricular rate of [address] changes Discharge Plan Dx/Rx/DC Orders Clinical Impression: Dizziness, Chest pain, Weakness, Elevated troponin, Acute UTI Disposition Disposition: Acute Care Hospital [facility] What to do if you have Problems For any increased pain, shortness of breath, bleeding, nausea or vomiting, chestpain, or any unexpected problems, contact your Primary Care Provider. Call [facility] ([phone]) or report to the closest Emergency Room. Call 911 if necessary. 12/18/242229 <Electronically signed by Anup Guerrero DO> Cosigner Signature (if applicable): CC: [facility] ~ Signed [facility] Work Phone: 1([phone] History and physical note Author Jaya Patel [facility] Note Date/Time December 18, 2024 9: 58pm [facility] Medical Records Department [address] [place] [address] H&P Exam - Hospitalist 12/18/241817 MR#: [id number] Acct: [id number] Name: JUAQUIN KHALIL Rep #:[id number] : 1945 79 From: Jaya eden DO [facility] Status:ADM ANALILIA Location: [facility] [id number] HPI - General General Date of Admission: 12/18/24 Date of Service: 12/18/24 Chief Complaint: Presyncopal symptoms and shortness of breath with exertion HPI Narrative JUAQUIN KHALIL, is a 79 [address] to [facility] ED on 12/18/2024 with presyncopal symptoms and shortness of breath with exertion. Patient lives at home with his , has decent functional status at baseline. Medical history significant for mechanical aortic valve replacement in 2001 on warfarin, chronic A-fib, chronic HFpEF, history of CAD with stenting, hypertension and hyperlipidemia. He had the mechanical valve placed at [facility] and has followed with [facility] in the past for this. Patient was last hospitalized here in May 2023 and there was concern for a vegetation onthe mechanical valve at that time. EDGAR fortunately showed no vegetation, normalEF and some valve thickening but no valvular dysfunction. However, patient and note that he has seen [facility] cardiology and had testing done within the past several months and were told that his mechanical valve is failing. He has an appointment with his [facility] doctors to discuss replacement of the mechanical valve in the near future. On further discussion, patient believes he was told that the valve was leaky and this is why he was feeling, but he is not sure. Unfortunately I was not able to view these records in [facility]. In the ED, patient was mildly hypertensive to the 140s systolic, otherwise in rate controlled A-fib with rate in the 60s to 70s and stable on room air at rest. Orthostatic vitals were negative. Chest x-ray notable for mild vascular congestion. CBC and BMP were benign, but he was noted to have an elevated BNP of 4901. Troponin trend 25 > 33 > 22. EKG showed rate controlled A-fib with noischemic changes. Given his presyncopal symptoms with generalized weakness and concern for heart failure exacerbation, hospitalist was contacted for admission. I saw the patient at bedside in the ED, was present. Patient was fairly fatigued and chronically ill-appearing but otherwise sitting back comfortably inbed, answering questions appropriately, in no acute distress. He denies any shortness of breath at rest but does report shortness of breath with exertion over the past several days. Denies any lower extremity swelling. Denies any UTI symptoms. No other acute concerns at this time. Will be admitted for further management. [facility] Medical History (Updated 12/18/24 @ 21:[address] Jaya Patel, DO) Wears hearing aid Thyroid disease High cholesterol Excessive bleeding Back pain Migraine headache Stroke/cerebrovascular accident History of IBS Gastric reflux Former smoker Sleep apnea Shortness of breath on exertion Leg cramps History of pain when walking History of edema History of echocardiogram History of stress test Cardiology follow-up encounter FH: bilateral hip replacements Home Medications ?Medication ?Instructions ?Recorded ?Last Taken ?Type warfarin 4 mg tablet (Jantoven) 4 mg PO SUTUWETHFRSA b lood thinner 04/03/16 01/08/23 History allopurinol 100 mg tablet 100 mg PO DAILYCM gout 04/0412/18/24 History atorvastatin 40 mg tablet 80 mg PO DAILY cholesterol 1 06/05/15 12/18/24 History ferrous sulfate 325 mg (65 mg 325 mg PO DAILY suppleme nt 04/04/16 12/18/24 History iron) tablet isosorbide mononitrate 30 mg 30 mg PO DAILY chest pain 04/04/16 12/18/24 History tablet,extended release 24 hr levothyroxine 25 mcg tablet 50 mcg PO DAILY thyroid 12/18/24 History metoprolol tartrate 25 mg tablet 25 mg PO DAILY blood pressure 04/04/16 12/18/24 History pantoprazole 40 mg tablet,delayed 40 mg PO BID reflux 04/04/16 12/18/24 History release gabapentin 300 mg capsule 300 mg PO DAILY nerve pain 0 01/10/20 12/18/24 History tamsulosin 0.4 mg capsule 0.4 mg PO DAILY prostate 03/2312/18/24 History aspirin 81 mg capsule 81 mg PO DAILY heart health 01/10/23 12/18/24 History finasteride 5 mg tablet 5 mg PO DAILY prostate 05/1812/18/24 History warfarin 2 mg tablet (Jantoven) 2 mg PO DAILY blood th inner 05/19/23 12/18/24 History cefdinir 300 mg capsule 300 mg PO BID #10 caps 05/23 Unknown Rx furosemide 40 mg tablet (Lasix) 40 mg PO DAILY #30 tab s 05/23/23 Unknown Rx hydrocodone-acetaminophen 5-325mg 1 tab PO Q4H PRN PRN Pain 2 days 02/13/24 Unknown Rx 5mg-325mg #14 TABLETS Allergy/AdvReac Type Severity Reaction Status Date / Time hydrocodone bitartrate (From Allergy Other Verified 03/22/24 15:48 Vicodin) Surgical History History of total right hip replacement History of total left hip replacement History of heart surgery History of cardiac catheterization History of coronary artery stent placement Hx laparoscopic cholecystectomy Hx of aortic valve replacement History of open heart surgery Social History household members: spouse Smoking Status: Former smoker ROS Constitutional Constitutional: Reports fatigue and weakness; Denies chills or fever(s) Eyes Eyes: Denies change in vision Cardiovascular Cardiovascular: Denies chest pain Respiratory/Chest Respiratory/Chest: Reports cough and shortness of breath with exertion; Denies productive cough, shortness of breath at rest or wheezing Gastrointestinal Gastrointestinal: Denies abdominal pain Genitourinary Genitourinary: Denies dysuria Musculoskeletal Musculoskeletal: Denies arthralgias or myalgias Neurologic Neurologic: Denies dizziness, focal weakness, headache(s), numbness or tingling Vital Signs Vital Signs Vital Signs: 12/18/24 14:10 12/18/24 14:28 12/18/24 16:24 Temperature 98.1 F Temperature Source Oral Pulse Rate 60 66 Pulse Rate [Lying] 59 L Pulse Rate [Sitting (for 1 minute prior to obtaining)] 59 L Pulse Rate [Standing (for 1 minute prior to obtaining)] 66 Respiratory Rate 18 16 Blood Pressure 157/67 H 145/63 H Blood Pressure [Lying] 135/53 H Blood Pressure [Sitting (for 1 minute prior to obtaining)] 141/55 H Blood Pressure [Standing (for 1 minute prior to obtaining)] 140/56 H Blood Pressure Mean 97 90 Blood Pressure Mean [Lying] 80 Blood Pressure Mean [Sitting (for 1 minute prior to obtaining)] 83 Blood Pressure Mean [Standing (for 1 minute prior to obtaining)] 84 Pulse Ox 96 96 Oxygen Delivery Method Room Air Room Air 12/18/24 17:00 Temperature Temperature Source Pulse Rate 60 Pulse Rate [Lying] Pulse Rate [Sitting (for 1 minute prior to obtaining)] Pulse Rate [Standing (for 1 minute prior to obtaining)] Respiratory Rate 16 Blood Pressure 143/64 H Blood Pressure [Lying] Blood Pressure [Sitting (for 1 minute prior to obtaining)] Blood Pressure [Standing (for 1 minute prior to obtaining)] Blood Pressure Mean 90 Blood Pressure Mean [Lying] Blood Pressure Mean [Sitting (for 1 minute prior to obtaining)] Blood Pressure Mean [Standing (for 1 minute prior to obtaining)] Pulse Ox 96 Oxygen Delivery Method Room Air Weight Weight: 103.2 kg Body Mass Index (BMI) 32.6 Physical Exam Const alert, oriented x3 and no apparent distress Constitutional Narrative: Elderly male, class I obesity, fatigued and somewhat chronically ill-appearing, otherwise sitting back fairly comfortably in bed, answering questions appropriately, in no acute distress. General Appearance: cooperative and comfortable HEENT normocephalic, head/scalp atraumatic, hearing grossly normal bilaterally, nasal mucous membranes and turbinates normal and moist oral mucous membranes Eyes PERRL, EOMs intact bilaterally and conjunctivae normal Neck full ROM Chest inspection of chest normal Resp normal respiratory effort and no use of accessory muscles Resp Narrative: Breathing comfortably on room air at rest. Diminished breath sounds in bilateral lung bases with mild crackles noted. No wheezing noted. Cardio peripheral pulses 2+ throughout Cardio Narrative: A-fib, rate controlled. GI normal to inspection, nondistended, normoactive bowel sounds, soft to palpation,non-tender and non-distended Back/Spine normal ROM Extremity normal to inspection, full ROM and no pedal edema Skin no rashes or lesions noted Psych mental status grossly normal Results Lab / Micro Data 12/18/24 14:55 12/18/24 14:55 Labs: Laboratory Results - last 24 hr 12/18/24 14:55: WBC 6.1, RBC 3.67 L, Hgb 10.7 L, Hct 33.7 L, MCV 91.8, MCH 29.2,MCHC 31.8 L, RDW Std Deviation 54.5 H, RDW Coeff of Clement 16.0 H, Plt Count 277, MPV 10.3, Immature Gran % (Auto) 1.300 H, Neut % (Auto) 71.5 H, Lymph % (Auto) 14.0 L, Divide % (Auto) 8.9, Eos % (Auto) 3.8, Baso % (Auto) 0.5, Absolute Neuts (auto) 4.3, Absolute Lymphs (auto) 0.85, Nucleated RBC % 0, PT 39.3 H, INR 3.9, Sodium 139, Potassium 4.4, Chloride 103, Carbon Dioxide 25.3, Anion Gap 10, BUN 8, Creatinine 0.68 L, Estim Creat Clear Calc 90.10, Est GFR (MDRD) Non-Af 95, BUN/Creatinine Ratio 12.5, Glucose 90, Lactic Acid 2.1 H*, Calcium 8.5, TroponinT High Sens 25 H, NT pro BNP II 4901 H 12/18/24 16:10: Urine Color Yellow, Urine Clarity Sl. Cloudy, Urine pH 6.5, Ur Specific [place] 1.010, Urine Protein 30 H, Urine Glucose (UA) Normal, Urine Ketones Negative, Urine Occult Blood Negative, Urine Nitrite Positive H, Urine Bilirubin Negative, Urine Urobilinogen 4 H, Ur Leukocyte Esterase 500 H, Urine RBC 0-5 SEEN, Urine WBC 5-10 SEEN, Ur Squamous Epith Cells 0-5 SEEN, Urine Bacteria 1+, Urine Mucus 0 SEEN 12/18/24 16:45: Troponin T Hi Sens 2 Hr 33 H Micro: Microbiology 12/18/24 14:55 Mucosa - Nose SARS-CoV-2, Influenza & RSV (PCR) - Final Imaging Radiology Impression Chest X-Ray 12/18/24 15:05 IMPRESSION: Pulmonary findings as above. Reading Location: [facility] Brain CT 12/18/24 15:10 IMPRESSION: No acute intracranial abnormality. Left frontotemporal encephalomalacia. Reading Location: [facility] Assessment & Plan Assessment/Plan (1) Acute exacerbation of chronic heart failure: (2) Weakness: PLAN: Plan Patient is a 79-year-old male who presented to [facility] ED on 12/18/2024 with presyncopal symptoms and shortness of breath with exertion. 1. Mild acute on chronic CHF exacerbation suspected secondary to worsening function of mechanical aortic valve replacement, chronic A-fib on warfarin with mild supratherapeutic INR ? Admit under observation status to PCU. Patient stable on room air in the ED but does have elevated BNP, vascular congestion and shortness of breath on exertion that are consistent with mild CHF exacerbation. Had mechanical AVR placed at [facility] in 2001. Has been following with [facility] for this and was told recently that he has a failing valve that will require surgical valvular replacement soon. Unable to find his records so records have been requested. Echo ordered here. Will treat with IV Lasix 40 mg twice daily for now, monitor daily BMP and urine output. INR 3.9, goal 2.5-3.5 so we will hold home warfarinuntil INR returns to goal. Suspect patient will be okay for discharge home soonand notably he has a follow-up appointment with [facility] on Saturday 12/23 for the discussion of valve replacement. 2. Acute on chronic debility ? PT/OT/case management consulted. Patient lives at home with his and reports worsening generalized weakness over the past several days, though he does state he is still been able to complete his ADLs. Appreciate therapy recommendations. 3. Concern for UTI ? UA showed positive nitrates, 500 leukocyte esterase, 1+ bacteria. Patient denies UTI symptoms. However, given UA findings empirically treat with IV ceftriaxone for now. Follow-up urine culture. 4. Elevated troponins ? Troponin trend 25 > 33 > 22. EKG with chronic A-fib, no ischemic changes. Echo ordered as above. No further cardiac workup aside from echo required at this time. Chronic medical conditions: ? Class I obesity: BMI 31.5 on admit. Complicates hospital course and care. ? History of CAD with stenting, hypertension, hyperlipidemia: Continue home aspirin, statin, nitrate and Lopressor. Treated with IV Lasix as above. ? GERD: Continue home PPI. ? Hypothyroidism: Continue home Synthroid. ? BPH with obstructive symptoms: Continue home finasteride and Flomax. ? Neuropathy: Continue home gabapentin. ? History of gout: Continue home allopurinol. DVT prophylaxis: Holding warfarin for supratherapeutic INR as above CODE STATUS: Full code, verified Expected disposition: TBD Total clinical time spent by myself addressing the patient's medical issues, reviewing all the data, and collaborating with patient's care team: 75 minutes. Charges/Coding Visit Charges Inpatient E&M: 76154 Init Hosp L3 12/18/24 4465 <Electronically signed by Jaya Patel DO> Cosigner Signature (if applicable): CC: Dr. Jaya Patel, ; [facility]~ Signed [facility] Work Phone: [phone] 817-646608-20-2025 Discharge summary [facility] Medical Records Department [address] [place] [address] Emergency Department Summary 12/18/24 MR#: [id number] Acct: [id number] Name: JUAQUIN KHALIL Rep #:[id number] : 1945 79 From: Anup Guerrero DO PCP: [facility] Status:ADM ANALILIA Location: [place] [address] HPI History of Present Illness Chief Complaint: Dizziness Detail of Chief Complaint: Dizziness and not feeling well Informant: patient Narrative Narrative: Patient presents to the emergency department with complaint of dizziness and notfeeling well for about a week. Patient states that she has had intermittent episodes for the last week especially worsewith standing but can happen while seated as well. Today he was sitting and developed sudden onset of some blurredvision. Patient states that he could still see but everything looked like it was in apicture frame and that lasted less than a minute. Patient generally just feels weak. He is currently on Coumadin. He has had an aortic valve replacement in the past but states that he needs another one he is good to find out in about 5 days when that can happen. He denies chest pain. He has had a co ugh for about a week. Cough is nonproductive. He denies fever. He does describe some mild dysuria. [facility] Medical History (Updated 12/18/24 @ 18:[address] Anup Guerrero DO) Wears hearing aid Thyroid disease High cholesterol Excessive bleeding Back pain Migraine headache Stroke/cerebrovascular accident History of IBS Gastric reflux Former smoker Sleep apnea Shortness of breath on exertion Leg cramps History of pain when walking History of edema History of echocardiogram History of stress test Cardiology follow-up encounter FH: bilateral hip replacements Home Medications ?Medication ?Instructions ?Recorded ?Last Taken ?Type warfarin 4 mg tablet (Jantoven) 4 mg PO SUTUWETHFRSA b lood thinner 04/03/16 01/08/23 History allopurinol 100 mg tablet 100 mg PO DAILYCM gout 04/0405/18/23 History atorvastatin 40 mg tablet 80 mg PO DAILY cholesterol 1 06/05/15 05/18/23 History ferrous sulfate 325 mg (65 mg 325 mg PO DAILY suppleme nt 04/04/16 05/18/23 History iron) tablet isosorbide mononitrate 30 mg 30 mg PO DAILY chest pain 04/04/16 05/18/23 History tablet,extended release 24 hr levothyroxine 25 mcg tablet 50 mcg PO DAILY thyroid 05/18/23 History metoprolol tartrate 25 mg tablet 25 mg PO DAILY blood pressure 04/04/16 05/18/23 History pantoprazole 40 mg tablet,delayed 40 mg PO BID reflux 04/04/16 05/18/23 History release gabapentin 300 mg capsule 300 mg PO DAILY nerve pain 0 01/10/20 05/18/23 History tamsulosin 0.4 mg capsule 0.4 mg PO DAILY prostate 03/2305/18/23 History aspirin 81 mg capsule 81 mg PO DAILY heart health 01/10/23 05/18/23 History finasteride 5 mg tablet 5 mg PO DAILY prostate 05/1805/18/23 History warfarin 2 mg tablet (Jantoven) 2 mg PO DAILY blood th inner 05/19/23 Unknown History cefdinir 300 mg capsule 300 mg PO BID #10 caps 05/23 Unknown Rx furosemide 40 mg tablet (Lasix) 40 mg PO DAILY #30 tab s 05/23/23 Unknown Rx hydrocodone-acetaminophen 5-325mg 1 tab PO Q4H PRN PRN Pain 2 days 02/13/24 Unknown Rx 5mg-325mg #14 TABLETS Allergy/AdvReac Type Severity Reaction Status Date / Time hydrocodone bitartrate (From Allergy Other Verified 03/22/24 15:48 Vicodin) Surgical History History of total right hip replacement History [...] fever(s), sweats or weight loss Eyes Eyes: Reports blurry vision; Denies change in vision or diplopia ENT ENT ED: Denies rhinorrhea or sore throat Cardiovascular Cardiovascular: Denies chest pain, orthopnea or racing heartbeat Respiratory/Chest Respiratory/Chest: Reports cough; Denies dyspnea, dyspnea on exertion, orthopneaor sputum Gastrointestinal Gastrointestinal: Denies abdominal pain, diarrhea, nausea or vomiting Genitourinary Genitourinary ED: Denies dysuria, hematuria or urinary frequency Musculoskeletal Musculoskeletal: Denies arthralgias, back pain, myalgias or neck pain Integumentary Denies abscess, Abrasions or rash Neurologic Neurologic: Reports other Details: Dizziness ; Denies headache(s) or weakness Psychiatric Psychiatric: Denies anxiety, depression or suicidal thoughts Endocrine Endocrinology: Denies polydipsia, polyphagia or polyuria Hematologic/Lymphatic Hematologic/Lymphatic: Denies easy bleeding, easy bruising or lymphadenopathy Allergic/Immunologic Allergic/Immunologic ED: Denies mouth swelling, tongue swelling or urticaria EXAM Physical Exam Const Vital Signs: 12/18/24 14:10 12/18/24 14:28 12/18/24 16:24 Temperature 98.1 F Temperature Source Oral Pulse Rate 60 66 Pulse Rate [Lying] 59 L Pulse Rate [Sitting (for 1 minute prior to obtaining)] 59 L Pulse Rate [Standing (for 1 minute prior to obtaining)] 66 Respiratory Rate 18 16 Blood Pressure 157/67 H 145/63 H Blood Pressure [Lying] 135/53 H Blood Pressure [Sitting (for 1 minute prior to obtaining)] 141/55 H Blood Pressure [Standing (for 1 minute prior to obtaining)] 140/56 H Blood Pressure Mean 97 90 Blood Pressure Mean [Lying] 80 Blood Pressure Mean [Sitting (for 1 minute prior to obtaining)] 83 Blood Pressure Mean [Standing (for 1 minute prior to obtaining)] 84 Pulse Ox 96 96 Oxygen Delivery Method Room Air Room Air 12/18/24 17:00 Temperature Temperature Source Pulse Rate 60 Pulse Rate [Lying] Pulse Rate [Sitting (for 1 minute prior to obtaining)] Pulse Rate [Standing (for 1 minute prior to obtaining)] Respiratory Rate 16 Blood Pressure 143/64 H Blood Pressure [Lying] Blood Pressure [Sitting (for 1 minute prior to obtaining)] Blood Pressure [Standing (for 1 minute prior to obtaining)] Blood Pressure Mean 90 Blood Pressure Mean [Lying] Blood Pressure Mean [Sitting (for 1 minute prior to obtaining)] Blood Pressure Mean [Standing (for 1 minute prior to obtaining)] Pulse Ox 96 Oxygen Delivery Method Room Air Positive well nourished and well developed General Appearance ED: well developed and NAD HEENT Reports TM's clear and moist mucous membranes normocephalic and atraumatic; Negative for trauma or tenderness Tympanic Membrane ED: Yes TM's clear Eyes PERRL and EOMs intact bilaterally General Eye ED: Negative for pale conjunctiva or scleral icterus Neck no lymphadenopathy, supple and no JVD General: Negative for tenderness Chest Wall inspection of chest normal and palpation of chest normal Chest: Negative for tenderness Resp normal respiratory effort and clear to auscultation bilaterally Effort and Inspection: Negative for respiratory distress or pain with movement Auscultation: Negative for rhonchi, wheezes or diminished lung sounds Cardio regular rate, regular rhythm, S1 normal heart sound and S2 normal heart sound Peripheral Pulses: pulses 2+ throughout GI normal to inspection, nondistended, normoactive bowel sounds, soft to palpation,non-tender, non-distended and no masses Back/Spine no CVA tenderness and no thoracic nor lumbar tenderness Extremity normal to inspection General Extremety ED: Negative for edema General Extremity: Negative for edema Neuro oriented x3, CN's II-XII intact bilaterally, no sensory deficits noted and gait normal Sensorium / Orientation: awake, alert, oriented to person, oriented to place andoriented to time Motor Exam: strength 5/5 throughout and strength abnormal Psych mental status grossly normal Skin no rashes or lesions noted and no wounds MDM MDM MDM Narrative Medical decision making narrative: Patient presents with multiple complaints. He has had intermittent chest discomfort. He complains of dizziness. Complains of some blurred vision today. He has had some mild dysuria. He has had a cough for about a week. IV line established. Orthostatic vital signs obtained were negative. CBC with dif ferential obtained showed a white count of 6.1 with hemoglobin 10.7 and platelet count 277. Chemistries unremarkable. BNP was elevated 4009 101. First troponin was mildly elevated 25 and delta troponin was elevated at 33. Urinalysis with some signs of infection and urine culture was sent. He was ordered Rocephin 1 g IV. Patient's delta troponin is positive. CT scan of the brain without contrast was unremarkable. Will discuss case with hospitalist to evaluate for admission. It is unclear if his cough is infectious versus relatedto some mild CHF. Lab Data Attestation: I reviewed the patient's lab results. Labs: Laboratory Results - last 24 hr 12/18/24 12/18/24 12/18/24 14:55 16:10 16:45 WBC 6.1 RBC 3.67 L Hgb 10.7 L Hct 33.7 L MCV 91.8 MCH 29.2 MCHC 31.8 L RDW Std Deviation 54.5 H RDW Coeff of Clement 16.0 H Plt Count 277 MPV 10.3 Immature Gran % (Auto) 1.300 H Neut % (Auto) 71.5 H Lymph % (Auto) 14.0 L Divide % (Auto) 8.9 Eos % (Auto) 3.8 Baso % (Auto) 0.5 Absolute Neuts (auto) 4.3 Absolute Lymphs (auto) 0.85 Nucleated RBC % 0 PT 39.3 H INR 3.9 Sodium 139 Potassium 4.4 Chloride 103 Carbon Dioxide 25.3 Anion Gap 10 BUN 8 Creatinine 0.68 L Estim Creat Clear Calc 90.10 Est GFR (MDRD) Non-Af 95 BUN/Creatinine Ratio 12.5 Glucose 90 Lactic Acid 2.1 H* Calcium 8.5 Troponin T High Sens 25 H Troponin T Hi Sens 2 Hr 33 H NT pro BNP II 4901 H Urine Color Yellow Urine Clarity Sl. Cloudy Urine pH 6.5 Ur Specific [place] 1.010 Urine Protein 30 H Urine Glucose (UA) Normal Urine Ketones Negative Urine Occult Blood Negative Urine Nitrite Positive H Urine Bilirubin Negative Urine Urobilinogen 4 H Ur Leukocyte Esterase 500 H Urine RBC 0-5 SEEN Urine WBC 5-10 SEEN Ur Squamous Epith Cells 0-5 SEEN Urine Bacteria 1+ Urine Mucus 0 SEEN Radiography Diagnostic Testing: Clinical Impression(s) from Imaging Studies Chest X-Ray 12/18/24 15:05 IMPRESSION: Pulmonary findings as above. Reading Location: [facility] Brain CT 12/18/24 15:10 IMPRESSION: No acute intracranial abnormality. Left frontotemporal encephalomalacia. Reading Location: [facility] 1 view chest x-ray obtained interpreted by myself as no evidence of infiltrate or pneumothorax or acute disease process. Radiology felt there may be some mildpulmonary congestion. EKG Initial EKG: Attestation: I personally reviewed and interpreted this EKG as follows: Comments: Atrial fibrillation with ventricular rate of [address] changes Discharge Plan Dx/Rx/DC Orders Clinical Impression: Dizziness, Chest pain, Weakness, Elevated troponin, Acute UTI Disposition Disposition: Acute Care Hospital [facility] What to do if you have Problems For any increased pain, shortness of breath, bleeding, nausea or vomiting, chestpain, or any unexpected problems, contact your Primary Care Provider. Call [facility] ([phone]) or report tothe closest Emergency Room. Call 911 if necessary. 12/18/240 Cosigner Signature (if applicable): CC: [facility] ~ Signed [facility]08-20-2025 History and physical note [facility] Medical Records Department [address] [place] [address] H&P Exam - Hospitalist 12/18/241817 MR#: [id number] Acct: [id number] Name: JUAQUIN KHALIL Rep #:[id number] : 1945 79 From: Jaya eden DO PCP: [facility] Status:ADM ANALILIA Location: [place] [address] HPI - General General Date of Admission: 12/18/24 Date of Service: 12/18/24 Chief Complaint: Presyncopal symptoms and shortness of breath with exertion HPI Narrative JUAQUIN KHALIL, is a 79 [address] to [facility] ED on 12/18/2024 with presyncopalsymptoms and shortness of breath with exertion. Patient lives at home with his , has decent functional status at baseline. Medical history significant for mechanical aortic valve replacement in 2001 on warfarin, chronic A-fib, chronic HFpEF, history of CAD with stenting, hypertension and hyperlipidemia. He had the mechanical valve placed at [facility] and has followed with [facility] cardiology in the past for this. Patient was last hospitalized here in May 2023 and there was concern for a vegetation onthe mechanical valve at that time. EDGAR fortunately showed no vegetation, normalEF and some valve thickening but no valvular dysfunction. However, patient and note that he has seen [facility] cardiology and had testing done within the past several months and were told that his mechanical valve is failing. He has an appointment with his [facility] doctors to discuss replacement of the mechanical valve in the near future. On further discussion, patient believes he was told that the valve was leaky and this is why he was feeling, but he is not sure. Unfortunately I was not able to view these records in [facility]. In the ED, patient was mildly hypertensive to the 140s systolic, otherwise in rate controlled A-fibwith rate in the 60s to 70s and stable on room air at rest. Orthostatic vitals were negative. Chestx-ray notable for mild vascular congestion. CBC and BMP were benign, but he was noted to have an elevated BNP of 4901. Troponin trend 25 > 33 > 22. EKG showed rate controlled A-fib with noischemic changes. Given his presyncopal symptoms with generalized weakness and concern for heart failure exacerbation, hospitalist was contacted for admission. I saw the patient at bedside in the ED, was present. Patient was fairly fatigued and chronically ill-appearing but otherwise sitting back comfortably inbed, answering questions appropriately, in no acute distress. He denies any shortness ofbreath at rest but does report shortness of breath with exertion over the past several days. Deniesany lower extremity swelling. Denies any UTI symptoms. No other acute concerns at this time. Will be admitted for further management. [facility] Medical History (Updated 12/18/24 @ 21:[address] Jaya Patel, ) Wears hearing aid Thyroid disease High cholesterol Excessive bleeding Back pain Migraine headache Stroke/cerebrovascular accident History of IBS Gastric reflux Former smoker Sleep apnea Shortness of breath on exertion Leg cramps History of pain when walking History of edema History of echocardiogram History of stress test Cardiology follow-up encounter FH: bilateral hip replacements Home Medications ?Medication ?Instructions ?Recorded ?Last Taken ?Type warfarin 4 mg tablet (Jantoven) 4 mg PO SUTUWETHFRSA b lood thinner 04/03/16 01/08/23 History allopurinol 100 mg tablet 100 mg PO DAILYCM gout 04/0412/18/24 History atorvastatin 40 mg tablet 80 mg PO DAILY cholesterol 1 06/05/15 12/18/24 History ferrous sulfate 325 mg (65 mg 325 mg PO DAILY suppleme nt 04/04/16 12/18/24 History iron) tablet isosorbide mononitrate 30 mg 30 mg PO DAILY chest pain 04/04/16 12/18/24 History tablet,extended release 24 hr levothyroxine 25 mcg tablet 50 mcg PO DAILY thyroid 12/18/24 History metoprolol tartrate 25 mg tablet 25 mg PO DAILY blood pressure 04/04/16 12/18/24 History pantoprazole 40 mg tablet,delayed 40 mg PO BID reflux 04/04/16 12/18/24 History release gabapentin 300 mg capsule 300 mg PO DAILY nerve pain 0 01/10/20 12/18/24 History tamsulosin 0.4 mg capsule 0.4 mg PO DAILY prostate 03/2312/18/24 History aspirin 81 mg capsule 81 mg PO DAILY heart health 01/10/23 12/18/24 History finasteride 5 mg tablet 5 mg PO DAILY prostate 05/1812/18/24 History warfarin 2 mg tablet (Jantoven) 2 mg PO DAILY blood th inner 05/19/23 12/18/24 History cefdinir 300 mg capsule 300 mg PO BID #10 caps 05/23 Unknown Rx furosemide 40 mg tablet (Lasix) 40 mg PO DAILY #30 tab s 05/23/23 Unknown Rx hydrocodone-acetaminophen 5-325mg 1 tab PO Q4H PRN PRN Pain 2 days 02/13/24 Unknown Rx 5mg-325mg #14 TABLETS Allergy/AdvReac Type Severity Reaction Status Date / Time hydrocodone bitartrate (From Allergy Other Verified 03/22/24 15:48 Vicodin) Surgical History History of total right hip replacement History of total left hip replacement History of heart surgery History of cardiac catheterization History of coronary artery stent placement Hx laparoscopic cholecystectomy Hx of aortic valve replacement History of open heart surgery Social History household members: spouse Smoking Status: Former smoker ROS Constitutional Constitutional: Reports fatigue and weakness; Denies chills or fever(s) Eyes Eyes: Denies change in vision Cardiovascular Cardiovascular: Denies chest pain Respiratory/Chest Respiratory/Chest: Reports cough and shortness of breath with exertion; Denies productive cough, shortness of breath at rest or wheezing Gastrointestinal Gastrointestinal: Denies abdominal pain Genitourinary Genitourinary: Denies dysuria Musculoskeletal Musculoskeletal: Denies arthralgias or myalgias Neurologic Neurologic: Denies dizziness, focal weakness, headache(s), numbness or tingling Vital Signs Vital Signs Vital Signs: 12/18/24 14:10 12/18/24 14:28 12/18/24 16:24 Temperature 98.1 F Temperature Source Oral Pulse Rate 60 66 Pulse Rate [Lying] 59 L Pulse Rate [Sitting (for 1 minute prior to obtaining)] 59 L Pulse Rate [Standing (for 1 minute prior to obtaining)] 66 Respiratory Rate 18 16 Blood Pressure 157/67 H 145/63 H Blood Pressure [Lying] 135/53 H Blood Pressure [Sitting (for 1 minute prior to obtaining)] 141/55 H Blood Pressure [Standing (for 1 minute prior to obtaining)] 140/56 H Blood Pressure Mean 97 90 Blood Pressure Mean [Lying] 80 Blood Pressure Mean [Sitting (for 1 minute prior to obtaining)] 83 Blood Pressure Mean [Standing (for 1 minute prior to obtaining)] 84 Pulse Ox 96 96 Oxygen Delivery Method Room Air Room Air 12/18/24 17:00 Temperature Temperature Source Pulse Rate 60 Pulse Rate [Lying] Pulse Rate [Sitting (for 1 minute prior to obtaining)] Pulse Rate [Standing (for 1 minute prior to obtaining)] Respiratory Rate 16 Blood Pressure 143/64 H Blood Pressure [Lying] Blood Pressure [Sitting (for 1 minute prior to obtaining)] Blood Pressure [Standing (for 1 minute prior to obtaining)] Blood Pressure Mean 90 Blood Pressure Mean [Lying] Blood Pressure Mean [Sitting (for 1 minute prior to obtaining)] Blood Pressure Mean [Standing (for 1 minute prior to obtaining)] Pulse Ox 96 Oxygen Delivery Method Room Air Weight Weight: 103.2 kg Body Mass Index (BMI) 32.6 Physical Exam Const alert, oriented x3 and no apparent distress Constitutional Narrative: Elderly male, class I obesity, fatigued and somewhat chronically ill-appearing, otherwise sitting back fairly comfortably in bed, answering questions appropriately, in no acute distress. General Appearance: cooperative and comfortable HEENT normocephalic, head/scalp atraumatic, hearing grossly normal bilaterally, nasal mucous membranes and turbinates normal and moist oral mucous membranes Eyes PERRL, EOMs intact bilaterally and conjunctivae normal Neck full ROM Chest inspection of chest normal Resp normal respiratory effort and no use of accessory muscles Resp Narrative: Breathing comfortably on room air at rest. Diminished breath sounds in bilateral lung bases with mild crackles noted. No wheezing noted. Cardio peripheral pulses 2+ throughout Cardio Narrative: A-fib, rate controlled. GI normal to inspection, nondistended, normoactive bowel sounds, soft to palpation,non-tender and non-distended Back/Spine normal ROM Extremity normal to inspection, full ROM and no pedal edema Skin no rashes or lesions noted Psych mental status grossly normal Results Lab / Micro Data 12/18/24 14:55 12/18/24 14:55 Labs: Laboratory Results - last 24 hr 12/18/24 14:55: WBC 6.1, RBC 3.67 L, Hgb 10.7 L, Hct 33.7 L, MCV 91.8, MCH 29.2,MCHC 31.8 L, RDW Std Deviation 54.5 H, RDW Coeff of Clement 16.0 H, Plt Count 277, MPV 10.3, Immature Gran % (Auto) 1.300 H, Neut % (Auto) 71.5 H, Lymph % (Auto) 14.0 L, Divide % (Auto) 8.9, Eos % (Auto) 3.8, Baso % (Auto) 0.5, Absolute Neuts (auto) 4.3, Absolute Lymphs (auto) 0.85, Nucleated RBC % 0, PT 39.3 H, INR 3.9, Sodium 139, Potassium 4.4, Chloride 103, Carbon Dioxide 25.3, Anion Gap 10, BUN 8, Creatinine 0.68 L, Estim Creat Clear Calc 90.10, Est GFR (MDRD) Non-Af 95, BUN/Creatinine Ratio 12.5, Glucose 90, Lactic Acid 2.1 H*, Calcium 8.5, TroponinT High Sens 25 H, NT pro BNP II 4901 H 12/18/24 16:10: Urine Color Yellow, Urine Clarity Sl. Cloudy, Urine pH 6.5, Ur Specific [place] 1.010, Urine Protein 30 H, Urine Glucose (UA) Normal, Urine Ketones Negative, Urine Occult Blood Negative, Urine Nitrite Positive H, Urine Bilirubin Negative, Urine Urobilinogen 4 H, Ur Leukocyte Esterase 500 H, Urine RBC 0-5 SEEN, Urine WBC 5-10 SEEN, Ur Squamous Epith Cells 0-5 SEEN, Urine Bacteria 1+, Urine Mucus 0 SEEN 12/18/24 16:45: Troponin T Hi Sens 2 Hr 33 H Micro: Microbiology 12/18/24 14:55 Mucosa - Nose SARS-CoV-2, Influenza & RSV (PCR) - Final Imaging Radiology Impression Chest X-Ray 12/18/24 15:05 IMPRESSION: Pulmonary findings as above. Reading Location: [facility] Brain CT 12/18/24 15:10 IMPRESSION: No acute intracranial abnormality. Left frontotemporal encephalomalacia. Reading Location: [facility] Assessment & Plan Assessment/Plan (1) Acute exacerbation of chronic heart failure: (2) Weakness: PLAN: Plan Patient is a 79-year-old male who presented to [facility] ED on 12/18/2024 with presyncopal symptoms and shortness of breath with exertion. 1. Mild acute on chronic CHF exacerbation suspected secondary to worsening function of mechanical aortic valve replacement, chronic A-fib on warfarin with mild supratherapeutic INR ? Admit under observation status to PCU. Patient stable on room air in the ED but does have elevated BNP, vascular congestion and shortness of breath on exertion that are consistent with mild CHF exacerbation. Had mechanical AVR placed at [facility] in 2001. Has been following with [facility] for this and was told recently that he has a failing valve that will require surgical valvular replacement soon. Unable to find his records so records have been requested. Echo ordered here. Will treat with IV Lasix 40 mg twice daily for now, monitor daily BMP and urine output. INR 3.9, goal 2.5-3.5 so we will hold home warfarinuntil INR returns to goal. Suspect patient will be okay for discharge home soonand notably he has a follow-up appointment with [facility] on Saturday 12/23 for the discussion of valve replacement. 2. Acute on chronic debility ? PT/OT/case management consulted. Patient lives at home with his and reports worsening generalized weakness over the past several days, though he does state he is still been able to complete his ADLs. Appreciate therapy recommendations. 3. Concern for UTI ? UA showed positive nitrates, 500 leukocyte esterase, 1+ bacteria. Patient denies UTI symptoms. However, given UA findings empirically treat with IV ceftriaxone for now. Follow-up urine culture. 4. Elevated troponins ? Troponin trend 25 > 33 > 22. EKG with chronic A-fib, no ischemic changes. Echo ordered as above. No further cardiac workup aside from echo required at this time. Chronic medical conditions: ? Class I obesity: BMI 31.5 on admit. Complicates hospital course and care. ? History of CAD with stenting, hypertension, hyperlipidemia: Continue home aspirin, statin, nitrate and Lopressor. Treated with IV Lasix as above. ? GERD: Continue home PPI. ? Hypothyroidism: Continue home Synthroid. ? BPH with obstructive symptoms: Continue home finasteride and Flomax. ? Neuropathy: Continue home gabapentin. ? History of gout: Continue home allopurinol. DVT prophylaxis: Holding warfarin for supratherapeutic INR as above CODE STATUS: Full code, verified Expected disposition: TBD Total clinical time spent by myself addressing the patient's medical issues, reviewing all the data, and collaborating with patient's care team: 75 minutes. Charges/Coding Visit Charges Inpatient E&M: 36104 Init Hosp L3 12/18/245 Cosigner Signature (if applicable): CC: Dr. Jaya Patel DO; [facility]~ Signed [facility]08-20-2025 Evaluation note* Diagnosis Onset Date Resolution Status Admit Date Acute exacerbation of chroni c heart failure acute December 18 6:18pm Acute UTI acute December 18, 025 6:18pm Weakness acute December 18, 2 025 6:18pm [facility] Work Phone: 1(424) 517-319908-20-2025 Radiology Diagnostic study note [facility] Imaging Services [address] [place] [address] [id number] Chest 1 View (Portable) MR#: [id number] Acct: [id number] Name: JUAQUIN KHALIL Rep #: [id number] : 1945 M 79 From: Venkata Gan MD PCP: [facility] Status: REG ER Study:Chest 1 View (Portable) Date of Exam: 12/18/24 Exam# [id number] Ordering Dr: Blanka Guerrero DO PROCEDURE: CHEST 1 VIEW (PORTABLE) 12/18/2024 REASON FOR EXAM: COUGH TECHNIQUE: Frontal view of the chest. COMPARISON: 05/2023. FINDINGS: Prior sternotomy. The heart is likely enlarged. Mild vascular indistinctness lung bases favoring mild edema. Infection is possible. No visualized pleural effusion. No acute osseous abnormalities. RAD/Chest 1 View (Portable) IMPRESSION: Pulmonary findings as above. Reading Location: [facility] CC: Dr. Anup Guerrero DO; [facility] ~ [employer] Operator: Signed [facility]08-20-2025 Radiology Diagnostic study note [facility] Imaging Services [address] [place] [address] Brain/Head without Contrast MR#: [id number] Acct: [id number] Name: JUAQUIN KHALIL Rep #: [id number] : 1945 M 79 From: Venkata Gan MD PCP: [facility] Status: REG ER Study:Brain/Head without Contrast Date of Exa m: 12/18/24 Exam# [id number] Ordering Dr: Blanka Guerrero DO PROCEDURE: BRAIN/HEAD WITHOUT CONTRAST 12/18/2024 REASON FOR EXAM: DIZZINESS, VISION CHANGES TECHNIQUE: BRAIN/HEAD WITHOUT CONTRAST Coronal and Sagittal reconstruction series were provided. One or more dose reduction techniques were used (e.g., Automated exposure control, adjustment of the mA and/or kV according to patient size, use of iterative reconstruction technique. RADIATION DOSE SUMMARY: CTDlvol: 44 mGy DLP: 880 mGycm COMPARISON: 03/22/2024. FINDINGS: Mild global parenchymal atrophy. Left frontotemporal encephalomalacia. No evidence of acute hemorrhage or infarction. No extra-axial blood or fluid collections. Pansinus mucosal thickening. The mastoid air cells are clear. The calvarial vault and skull base are intact. CT/Brain/Head without Contrast IMPRESSION: No acute intracranial abnormality. Left frontotemporal encephalomalacia. Reading Location: [facility] CC: Dr. Anup Guerrero DO; [facility] ~ [employer] Convertor Operator: Signed [facility]08-14-2025 Telephone encounter Note* Telephone Encounter - Aicha Oconnor RN - 12/12/2024 8:22 AM EDT Day 1 Cards, CTA, Echo, EKG, Labs, [...] come abdulkadir Orders placed Aicha Oconnor RN [facility]08-14-2025 Miscellaneous Notes* Telephone Encounter - Aicha Oconnor RN - 12/12/2024 8:22 AM EDT Day 1 Cards, CTA, Echo, EKG, Labs, [...] come abdulkadir Orders placed Aicha Oconnor RN * Telephone Encounter - Aicha Oconnor RN - 12/10/2024 8:48 AM EDT NPM reviewed Aicha Oconnor RN * Telephone Encounter - Joann Parikh - 12/09/2024 10:39 AM EDT LOCAL PATIENT Received Call from Self Juaquin [...] office for scheduling. Please call pt at [phone]. Patient Registration: Registration complete/updated: yes Insurance card(s) scanned [facility] with in the past year: Yes: Date: 11/29/24 Pt's [employer] is inactive. Ok to communicate to pt via MyStar[employer] not asked Medical Records: Records in [facility] (internal [facility] records): No Imaging in [facility] (internal [facility] records): No Care Everywhere - queried yes, downloaded N/A Linked Outside Organizations (list): [facility] OS Records Requested: yes Date: 12/04/24 Outside Hospital(s) requested records from: [facility] Received: yes Uploaded: Yes. Waiting on additional records: No. Missing (list): N/A OSH Radiology Imaging Requested: no Date: N/A Outside Hospital(s) requested imaging from: [facility]. Imaging will be received via Electronic Transfer Received: yes Imaging uploaded: Yes via Electronic Transfer Waiting on additional: No. Missing (list): N/A Additional providers added to Care Teams: Yes Additional Notes/Comments: Images uploaded, routed to NPM. Enct routed to: Demetrice Parikh * Telephone Encounter - Miriam Martinez - 12/04/2024 1:14 PM EDT 12/04/24 - images received * Telephone Encounter - Joann Parikh - 11/28/2024 9:45 AM EDT Re faxed the request for the images and the ECHO report for 01/19/24. Per Christine, the PACs system is down and they do not have an expected date of when it will be back up. Fax reports - [phone] Images - [phone] Joann Parikh * Telephone Encounter - Joann Parikh - 11/28/2024 8:51 AM EDT Referral was received on 11/18, spoke with patient and spouse to get insurance card, images and reports. Waiting for images. Joann Parikh [facility] Telephone encounter Note * Telephone Encounter - Aicha Oconnor RN - 12/10/2024 8:48 AM EDT NPM reviewed Aicha Oconnor RN [facility]08-11-2025 Telephone encounter Note* Telephone Encounter - Joann Parikh - 12/09/2024 10:39 AM EDT LOCAL PATIENT Received Call from Self Juaquin [...] office for scheduling. Please call pt at [phone]. Patient Registration: Registration complete/updated: yes Insurance card(s) scanned in epic with in the past year: Yes: Date: 11/29/24 Pt's [employer] is inactive. Ok to communicate to pt via [employer] not asked Medical Records: Records in [facility] (internal [facility] records): No Imaging in [facility] (internal [facility] records): No Care Everywhere - queried yes, downloaded N/A Linked Outside Organizations (list): [facility] OS Records Requested: yes Date: 12/04/24 Outside Hospital(s) requested records from: [facility] Received: yes Uploaded: Yes. Waiting on additional records: No. Missing (list): N/A OSH Radiology Imaging Requested: no Date: N/A Outside Hospital(s) requested imaging from: [facility]. Imaging will be received via Electronic Transfer Received: yes Imaging uploaded: Yes via Electronic Transfer Waiting on additional: No. Missing (list): N/A Additional providers added to Care Teams: Yes Additional Notes/Comments: Images uploaded, routed to NPM. Enct routed to: No Joann Parikh [facility]08-06-2025 Telephone encounter Note* Telephone Encounter - Miriam Martinez - 12/04/2024 1:14 PM EDT 12/04/24 - images received [facility]07-31-2025 Telephone encounter Note* Telephone Encounter - Joann Parikh - 11/28/2024 9:45 AM EDT Re faxed the request for the images and the ECHO report for 01/19/24. Per Christine, the PACs system is down and they do not have an expected date of when it will be back up. Fax reports - [phone] Images - [phone] Joann Parikh [facility]07-31-2025 Telephone encounter Note* Telephone Encounter - Joann Parikh - 11/28/2024 8:51 AM EDT Referral was received on 11/18, spoke with patient and spouse to get insurance card, images and reports. Waiting for images. Joann Parikh [facility]07-18-2025 Telephone encounter Note* Telephone Encounter - Reema Celis - 11/15/2024 12:47 PM EDT Sohail w/Mrs. Khalil. She stated [facility], [facility], they are authorizing pt to come to [facility]. I explained they need to send us the Auth number and form along with recordsand imaging. She has nothing. I gave pt my phone and fax number for [facility] to [facility]. Pt thanked me and call ended. [facility]07-18-2025 Miscellaneous Notes* Telephone Encounter - Reema Celis - 11/15/2024 12:47 PM EDT Sohail w/Mrs. Khalil. She stated [facility]'s [facility], they have everything, they are authorizing pt to come to [facility]. I explained they need to send us the Auth number and form along with recordsand imaging. She has nothing. I gave pt my phone and fax number for [facility]. Pt thanked me and call ended. documented [facility] Hospital Discharge instructions Patient Education 02/10/2024 15:36:44 Fracture, Shoulder [...] 8 weeks. More serious injuries may need surgeryto put the bones back into the correct [...] 2 hours the first day. You can makean ice pack by putting ice cubes in a plastic bag. A bag of frozen peas or something similar works well too. Wrap the bag in a towel before putting it on your shoulder. Continue with ice packs 3 to 4times a day for the next 2 to [...] doctor when it is safe to begin xmzui-oz-rbyhwq exercises. When to seek medical advice Call your healthcare provider right away if any of these occur: Your fingers become swollen, cold, blue, numb, or tingly Your shoulder or upper arm swells a lot or looks very bruised The pain in your shoulder gets worse The splint or immobilizer breaks You have a fever or chills [phone] [employer]. [address] [place] [address]. All rights reserved. This information is not intended as a substitute for professional medical care. Always follow yourhealthcare professional's instructions. 02/10/2024 15:36:41 Fall, Mechanical Mechanical [...] the next day, and not just the musclesyou injured at first. Remember, all the parts [...] get a concussion from your head suddenly jerkingforward, backward, or sideways when falling. Concussions and [...] the advice from your healthcare provider regarding careof your injury. At first, do not try [...] 10 days. It is important to keep theabrasions clean while they initially start to heal. [...] in vomit, stools (black or red color) 3340-7203 [employer]. [address] [place] [address]. All rights reserved. This information is not intended as a substitute for professional medical care. Always follow yourhealthcare professional's instructions. Follow Up Care 02/10/2024 12:22:18 With:[facility] Address: [address] [place] [address]- When:2-4 days [facility] 10-12-2024 Note Discharge Instructions Thank you for allowing [facility] to assist you with your healthcare needs. The following is importantdischarge information regarding your hospital visit. Diagnosis from Today's Visit Accident due to mechanical fall without injury Fracture of greater tuberosity of humerus What to Do Next Instructions from Your Care Team Discharge Home Equipment - Ordered -- Sling, Arm Right, 99 month(s), 02/10/24 15:10:00 EDT Post Acute Orders No qualifying data available. You Need to Schedule the Following Appointments Follow Up with [facility] When:Within 2-4 days Where:[address] [place] [address] [place] [address]- Allergies Vicodin(Severe) Tachycardia Medications Please ask your primary doctor or pharmacist before taking any other medication not listed, including over the counter drugs, herbal medications, vitamins and or supplements as they may interact withyour home medications. What How Much When Why [...] 8 weeks. More serious injuries may need surgeryto put the bones back into the correct [...] 2 hours the first day. You can makean ice pack by putting ice cubes in a plastic bag. A bag of frozen peas or something similar works well too. Wrap the bag in a towel before putting it on your shoulder. Continue with ice packs 3 to 4times a day for the next 2 to [...] doctor when it is safe to begin xuwgc-ny-pkgvsc exercises. When to seek medical advice Call your healthcare provider right away if any of these occur: Your fingers become swollen, cold, blue, numb, or tingly Your shoulder or upper arm swells a lot or looks very bruised The pain in your shoulder gets worse The splint or immobilizer breaks You have a fever or chills [phone] [employer]. [address] [place] [address]. All rights reserved. This information is not intended as a substitute for professional medical care. Always follow yourhealthcare professional's instructions. Mechanical Fall You have had [...] the next day, and not just the musclesyou injured at first. Remember, all the parts [...] get a concussion from your head suddenly jerkingforward, backward, or sideways when falling. Concussions and [...] the advice from your healthcare provider regarding careof your injury. At first, do not try [...] 10 days. It is important to keep theabrasions clean while they initially start to heal. [...] in vomit, stools (black or red color) 7886-9094 [employer]. [address] [place] [address]. All rights reserved. This information is not intended as a substitute for professional medical care. Always follow yourhealthcare professional's instructions. Additional Information VACCINATE! IT SAVES LIVES! Members of the community who have not yet received the COVID-19 vaccine and would like to receive it can visit one of [facility] vaccine clinics. There are many vaccine clinic locations within the [facility]. For locations and available times, please visit www.gettheshot.coronavirus.[place].gov/. It is important to note that some COVID mobile vaccine clinics are held outdoors and may be canceled in rainy or stormy conditions. To learn more about pediatric vaccinations (ages 5-11), we invite you to visit the [facility] webpage. https://www.[facility].org/pages/1526-Rcajo-Ansygbuahvh-Qnhdwuyuyl-Uawbo-Vej stions.htmlTo learn more about the COVID-19 vaccine, we invite you to visit the CDC website for a list of frequently asked questions. https://www.cdc.gov/coronavirus/2019-ncov/vaccines/faq.html [facility] Patient Portal Access Instructions: Stay connected with your healthcare team and access your personal medical information anytime with the [facility] Patient Portal. If you would like a full copy of your medical records please contact the [facility] Medical Records Department Monday through Monday between 8a.m. and 4:30p.m. Please follow the directions below to access the portal: 1.Access the email account you provided upon registration to the hospital.2.Look for an invitation email from [facility].3.Open the email and access the invitation link: Accept Invitation to [facility]4.Fill in the required schulte to create your account. Sign into [email or web address] with your username and password that you [...] you will allow to register on the [facility] [employer] Patient Portal for access to your information. You can also access the [facility] Patient Portal on the Rem[employer] maxwell. Simply click on Health Records under [place] and then click on the [facility] logo. HOW TO SAFELY DISPOSE OF PRESCRIPTION MEDICATIONS Please use one of the following methods to safely dispose of your unused medications. 1.Use a drug disposal kit: the drug disposal pouch allows you to safely discard your old and unuseddrugs. Ask your nurse to give you one when you are discharged.2.Visit a local take-back location: Many local pharmacies and police departments have programs that collect old and unwanted prescriptiondrugs. Call your local pharmacy or go to http://[employer].fav.or.it/9W8Uw6j to find one close to you.3.Make use of household items: Use cat litter or old coffee grounds to dispose medications if other options arenot available. Mix your drugs with these household products, seal them in an airtight container andthrow it into the garbage. Call [facility]: [phone] to be sure your drugs can be [...] drowsiness, such as benzodiazepines, also known as benzos,including diazepam and alprazolam, muscle relaxants or sleep aids. Never sell or share prescriptionopioids. This is illegal. Store opioids in a secure place and out of reach of others (including children, family, friends and visitors). The last page(s) of this document has been signed and retained as a CHART COPY Signatures Patient Education Materials Fracture, Shoulder Fall, Mechanical Medication Leaflets My discharge plan and instructions have been reviewed and explained to me and I,JUAQUIN KHALIL understand my current condition and have read and understand these discharge instructions. I have received a written copy of the plan/instructions. If I have questions, I am aware that I should contact my doctor. Patient/Package Checker Signature: Date/Time: Relationship to Patient: Witness Name/Signature: Date/Time: [facility]10-12-2024 Note ORIGINAL EXAMINATION: 2 XRAY VIEWS OF [...] Sign Date: 02/10/2024 2:08:04 PM Ordering Provider: [facility]10-12-2024 Note ORIGINAL EXAMINATION: TWO XRAY VIEWS OF [...] Sign Date: 02/10/2024 2:05:47 PM Ordering Provider: [facility]10-12-2024 Note ORIGINAL EXAMINATION: CT OF THE CERVICAL [...] to suggest blastic metastatic disease? Interpreted by: Lamberto Bolden MD Preliminary Report By: Lamberto Bolden MD Electronically signed By Lamberto Bolden MD Dictated Date: 02/10/2024 2:06:25 PM Prelim Date: 02/10/2024 2:11:14 PM Sign Date: 02/10/2024 2:11:14 PM Ordering Provider: [facility]10-12-2024 Note ORIGINAL EXAMINATION: CT OF THE HEAD [...] infarct. No acute abnormality identified. Interpreted by: Lamberto Bolden MD Preliminary Report By: Lamberto Bolden MD Electronically signed By Lamberto Bolden MD Dictated Date: 02/10/2024 2:04:31 PM Prelim Date: 02/10/2024 2:06:15 PM Sign Date: 02/10/2024 2:06:15 PM Ordering Provider: [facility]01-23-2024 Discharge summary Author Desmond Castaneda [facility] May 23, 2023 12:12pm Note Date/Time May 23, 2023 1 1:54am [facility] Medical Records Department [address] [place] [address] Discharge Summary 05/23/23 1151 MR#: [id number] Acct: [id number] Name: JUAQUIN KHALIL Ktay Rep #:[id number] : 1945 77 From: Desmond Castaneda MD PCP: [facility] Status:ADM IN Location: [address] Providers Date of Admission: 05/19/23 Date of Discharge: 05/23/23 Primary Care Physician: [facility] Consultations 05/19/23 00:24 Consult: Gastroenterology Routine [...] is a 77-year-old male who presented to [facility] ED on 05/18/2023 with worsening cough [...] vegetation. Ordering Physician: Moreno Bob Referring Physician: [facility] Performed By: Kandace Ayoub, DONALD, RVT Meaningful Use Info Meaningful Use Diagnoses (Choose all that apply): CHF CHF TRA/ARB ordered at discharge?: Yes Reason TRA/ARB not ordered?: Normal EF Documented LVEF (%): 60 Discharge Plan Admission Admit Date/Time: 05/19/23 00:14 Attending Provider: Desmond Castaneda Primary Care Provider: [facility] Consulting Providers: Desmond Owen; Constantino Albarado; Chester [...] mg tablet 5 mg PO DAILY warfarin [Maytoven] 2 mg tablet 2 mg PO DAILY Patient Comments: AT BEDTIME ON MONDAYS ONLY Referrals [facility] - Within 2 Weeks Disposition Disposition (needs filled in before D/C Order can be placed): Home, Self Care Charges/Coding Visit Charges Inpatient E&M: 64566 Disch Hosp >30min 05/23/23 1212 <Electronically signed by Desmond Castaneda MD> Cosigner Signature (if applicable): CC: Dr. Desmond Castaneda MD; [facility]~ Signed [facility] Work Phone: 1(142) 781-685801-23-2024 Progress note Author Desmond Castaneda [facility] May 23, 2023 11:51am Note Date/Time May 23, 2023 7 :55am [facility] Medical Records Department [address] [place] [address] Progress Note - Hospitalist 05/23/23 0755 MR#: [id number] Acct: [id number] Name: JUAQUIN KHALIL Rep #:[id number] : 1945 77 From: Desmond Castaneda MD PCP: [facility] Status:ADM IN Location: [place] [address] Reason for Visit Reason for Visit: Diagnoses [...] vegetation. Ordering Physician: Moreno Bob Referring Physician: [facility] Performed By: Kandace Ayoub, RDCS, RVT Physical Exam Narrative GENERAL: cooperative HEENT: [...] is a 77-year-old male who presented to [facility] ED on 05/18/2023 with worsening cough [...] documentation, 35Minutes Charges/Coding Visit Charges Inpatient E&M: 11557 Subs Hosp L2 05/23/23 1151 <Electronically signed by Desmond Castaneda MD> Cosigner Signature (if applicable): CC: ~ Signed [facility] Work Phone: 1(313) 762-360601-23-2024 Consult note Author Arian Kinney [facility] May 22, 2023 10:09pm Note Date/Time May 22, 2023 1 0:09pm [facility] Medical Records Department [address] [place] [address] Pharmacokinetic/Renal -Consult 05/22/232204 MR#: [id number] Acct: [id number] Name: JUAQUIN KHALIL Rep #:[id number] : 1945 77 From: Arian Kinney PCP: [facility] Status:ADM IN Location: [place] [address] Consult Antibiotic Management Pharmacy has been consulted [...] on [date and time ordered]: 05/24/23 @0930 05/22/232208 <Electronically signed by Arian mills> Date _ Arian Kinney Graciela Signature (if applicable): Date CC: ~ Signed [facility] Work Phone: 1(638) 565-899001-22-2024 Progress note Author Desmond Castaneda [facility] May 22, 2023 9:58am Note Date/Time May 22, 2023 9 :27am [facility] Medical Records Department [address] [place] [address] Progress Note - Hospitalist 05/22/23 0925 MR#: [id number] Acct: [id number] Name: JUAQUIN KHALIL Katy Rep #:[id number] : 1945 77 From: Desmond Castaneda MD PCP: [facility] Status:ADM IN Location: [place] [address] Reason for Visit Reason for Visit: Diagnoses Elevated white blood cell count, unspecified (05/19/23) Other nonrheumatic aortic valve disorders (05/19/23) Heart failure, unspecified (05/19/23) Pneumonia, unspecified organism (05/19/23) Other specified diseases of pancreas (05/19/23) Hypoxemia (05/19/23) Subjective Subjective Patient is a 77-year-old male who presented to [facility] ED on 05/18/2023 with worsening cough [...] is a 77-year-old male who presented to [facility] ED on 05/18/2023 with worsening cough [...] 50 Minutes Charges/Coding Visit Charges Inpatient E&M: 78171 Subs Hosp L3 05/22/23 0958 <Electronically signed by Desmond Castaneda MD> Cosigner Signature (if applicable): CC: ~ Signed [facility] Work Phone: 1(236) 267-896301-21-2024 Consult note Author Chester Montano [facility] May 21, 2023 1:37pm Note Date/Time May 21, 2023 1 :14pm [facility] Medical Records Department [address] [place] [address] Consultation - Cardiology 05/21/23 1304 MR#: [id number] Acct: [id number] Name: JUAQUIN KHALIL Rep #:[id number] : 1945 77 From: Chester Montano MD PCP: [facility] Status:ADM IN Location: [place] [address] Assessment & Plan Assessment/Plan (1) Hypoxia: (2) [...] preserved EF/HFpEF, mechanical aortic valve done at [place], history of atrial fibrillation. The echocardiographic evaluation/TTE/ [...] the pancreas Patient usually follow-up at the [facility]/[place] Will discuss with his primary ux developer for follow-up and possible repeat transthoracic echo [...] KHALIL, is a 77 M who presents [facility] Medical History Back pain Cardiology follow-up encounter [...] 4 mg tablet (Jantoven) 4 mg PO JAYDEETHSA A.FIB 04/03/16 [History Last Taken 01/08/23] allopurinol [...] shortness of breath improved no chest pain satellite project site monitor normal sinus Cardiac exam normal aortic [...] EPS: PPM: CXR: Chest CT Scan: 05/21/23 0517 <Electronically signed by Chester Montano MD> Cosigner Signature (if applicable): CC: Dr. Desmond Owen DO; Dr. Chester Montano MD; Dr. Constantino Albarado DO; [facility]~ Signed [facility] Work Phone: 1(429) 641-920301-21-2024 Progress note Author Jaya Fernandezartemio [facility] May 21, 2023 12:17pm Note Date/Time May 21, 2023 1 2:17pm [facility] Medical Records Department [address] [place] [address] Progress Note - Hospitalist 05/21/23 1214 MR#: [id number] Acct: [id number] Name: JUAQUIN KHALIL Rep #:[id number] : 1945 77 From: Jaya eden DO PCP: [facility] Status:ADM IN Location: [place] [address] Reason for Visit Reason for Visit: Diagnoses [...] is a 77-year-old male who presented to [facility] ED on 05/18/2023 with worsening cough [...] 35 minutes. Charges/Coding Visit Charges Inpatient E&M: 63165 Subs Hosp L2 05/21/23 1217 <Electronically signed by Jaya Patel DO> Cosigner Signature (if applicable): CC: ~ Signed [facility] Work Phone: 1(531) 266-362701-20-2024 Progress note Author Jaya [facility] May 20, 2023 3:22pm Note Date/Time May 20, 2023 2 :27pm [facility] Medical Records Department [address] [place] [address] Progress Note - Hospitalist 05/20/23 1405 MR#: [id number] Acct: [id number] Name: JUAQUIN KHALIL Rep #:[id number] : 1945 77 From: Jaya eden DO PCP: [facility] Status:ADM IN Location: [place] [address] Reason for Visit Reason for Visit: Diagnoses [...] ,Evaluation Ordering Physician: Constantino Albarado Referring Physician: [facility] Performed By: Kandace Ayoub, DONALD, RVT Chest X-Ray 05/20/23 06:10 IMPRESSION: 1. Stable mild cardiomegaly. 2. No acute cardiopulmonary abnormality. Electronically Signed: Lamberto Hancock MD at 7:06 EST , Physical [...] is a 77-year-old male who presented to [facility] ED on 05/18/2023 with worsening cough [...] 35 minutes. Charges/Coding Visit Charges Inpatient E&M: 95559 Subs Hosp L2 05/20/23 1522 <Electronically signed by Jaya Patel DO> Cosigner Signature (if applicable): CC: ~ Signed [facility] Work Phone: 1(299) 555-444901-19-2024 Progress note Author Constantino Albarado [facility] May 19, 2023 8:37pm Note Date/Time May 19, 2023 8 :28pm [facility] Medical Records Department [address] [place] [address] Progress Note - Hospitalist 05/19/232021 MR#: [id number] Acct: [id number] Name: JUAQUIN KHALIL Rep #:[id number] : 1945 77 From: Constantino Albarado DO PCP: [facility] Status:ADM IN Location: [place] [id number] Reason for Visit Reason for Visit: Diagnoses [...] Clarity Clear, Urine pH 7.0, Ur Specific [place] 1.005, Urine Protein Negative, Urine Glucose (UA) [...] Epifanio Wood MD at 11:40 EST , Orbit X-Ray [...] 35 minutes Charges/Coding Visit Charges Inpatient E&M: 99015 Subs Hosp L2 05/19/232036 <Electronically signed by Constantino Albarado DO> Cosigner Signature (if applicable): CC: ~ Signed [facility] Work Phone: 1(285) 494-510701-19-2024 History and physical note Author Desmond Coyle [facility] May 19, 2023 6:51am Note Date/Time May 18, 2023 1 1:26pm [facility] Medical Records Department [address] [place] [address] H&P Exam - Hospitalist 05/18/23 7530 MR#: [id number] Acct: [id number] Name: JUAQUIN KHALIL Rep #:[id number] : 1945 77 From: Desmond Roche DO PCP: [facility] Status:ADM IN Location: [place] [id number]- [id number] HPI - General General Date of [...] plus chronic back pain who presents to [facility] ER complaining of cough and SOB. [...] expected to be greater than 48 hours. [facility] Medical History Back pain Cardiology follow-up encounter [...] Clarity Clear, Urine pH 7.0, Ur Specific [place] 1.005, Urine Protein Negative, Urine Glucose (UA) [...] Myelocytes % 8 H, Diff Path Review May foll, Platelet Estimate ADEQUATE, RBC Morphology NORM C+C, [...] 55 minutes. Charges/Coding Visit Charges Inpatient E&M: 73219 Init Hosp L2 05/19/23 0651 <Electronically signed by Desmond Owen DO> Cosigner Signature (if applicable): CC: Dr. Desmond Owen DO; [facility]~ Signed [facility] Work Phone: 1(488) 703-859001-19-2024 Discharge summary Author Leighton Drake [facility] May 18, 2023 11:38pm Note Date/Time May 18, 2023 9 :21pm [facility] Medical Records Department [address] [place] [address] Emergency Department Summary 05/18/23 MR#: [id number] Acct: [id number] Name: JUAQUIN KHALIL Rep #:[id number] : 1945 77 From: Leighton Drake DO PCP: [facility] Status:REG ER Location: ED HPI History of [...] Coumadin for history of heart valve replacement. [facility] Medical History Back pain Cardiology [...] Clarity Clear Urine pH 7.0 Ur Specific [place] 1.005 Urine Protein Negative Urine Glucose (UA) [...] 21:38 EST Reading Location ID and State: [facility] / [place] Tel [phone], Service support , Chest CT 05/18/23 21:59 IMPRESSION: Small bilateral pleural effusions and bibasilar atelectasis or infiltrate. Incidental findings including apparent enlargement of the pancreatic head and uncinate process possibly due to chronic pancreatitis or neoplasm. Clinical correlation recommended as well as MRI/MRCP Small bilateral pleural effusions and bibasilar atelectasis or infiltrate. Electronically Signed: Diego Sanchez MD at 22:49 EST , Discharge Plan Triage Chief Complaint: Ear [...] 5 mg PO DAILY [facility] Care Provider[facility] [Primary Care Provider] - Capacity Legal Package Checker Reflex Medical hold order details:: IF a medical hold is selected below, a suggested order for a MEDICAL HOLD will reflex upon signing the document. Next of kin: [place] law dictates a PRIORITY LIST for identifying [...] your Primary Care Provider. Call [facility] ([phone]) or report to the closest Emergency Room. Call 911 if necessary. 05/18/23 5971 <Electronically signed by Leighton Drake DO> Cosigner Signature (if applicable): CC: [facility] ~ Signed [facility] Work Phone: 1(152) 587-318209-15-2023 Procedure [facility] 01-13-2023 Procedure [facility]12-24-2021 Hospital Discharge instructions Patient Education 04/22/2021 23:15:28 [...] be painfulwhen eating. You may use an jocn-ifg-hluwype local numbing solution for pain relief. If [...] off before 7 days Wound edges re-open 3943-6533 [employer]. [address] [place] [address]. All rights reserved. This information is not intended as a substitute for professional medical care. Always follow yourhealthcare professional's instructions. Follow Up Care 04/22/2021 22:28:10 With:[facility], CLINIC Address: [address] [place] [address]- When:2-4 days With:[facility], CLINIC Address: [address] [place] [address]- When:2-4 days With:[facility], CLINIC Address: [address] [place], [place] [id number]- When:2-4 days [facility] 12-23-2021 Hospital Discharge instructions Patient Education 04/22/2021 [...] affected hand Decreased movement of the hand 8085-1680 [employer]. [address] [place] [address], [place] [address]. All rights reserved. This information is not [...] some information about medicine: You may use cicv-caz-myfjpzy medicine such as acetaminophen or ibuprofen to [...] re-open Bleeding not controlled by direct pressure 7133-8181 [employer]. [address] [place] [address], [place] [address]. All rights reserved. This information is not [...] splint gets wet, dry it with a fine hairer on a cool setting. You may use aqap-dfc-ssqeogs pain medicine to control pain, unless another [...] or as directed by your provider Adriana 3273-8233 [employer]. [address] [place] [address]. All rights reserved. This information is not [...] wet, you can dry it with a fine hairer. You may use acetaminophen or ibuprofen to [...] or as directed by your healthcare provider 8081-8513 [employer]. [address] [place] [address], [place] [address]. All rights reserved. This information is not intended as a substitute for professional medical care. Always follow yourhealthcare professional's instructions. Follow Up Care 04/22/2021 14:39:00 With:TAMMY NAVARRO MD Address: [id number] When:5 to 7 days Comments:Call tomorrow [facility] [place] Discharge summary Author Collins Salguero [facility] July 10, 2022 3:32am Note Date/Time July 10, 2022 3:3 0am [facility] Medical Records Department [address] [facility] [place] [address] Emergency Department Summary 07/10/22 MR#: [id number] Acct: [id number] Name: JUAQUIN KHALIL Rep #:[id number] : 1945 76 From: Collins Salguero DO [facility]CP[facility] Status:REG ER Location: ED HPI History of [...] 81.4 H Lymph % (Auto) 7.6 L Divide % (Auto) 4.5 Eos % (Auto) 0.9 [...] (Auto) Neut % (Auto) Lymph % (Auto) Divide % (Auto) Eos % (Auto) Baso % [...] 1:26 EST Reading Location ID and State: [address] [place] [address] , Service support , Chest x-ray as interpreted by the emergency medicine physician reveals cardiomegaly with mild vascular congestion without pleural effusion infiltrate or pneumothorax Discharge Plan Triage Chief Complaint: Cough ED Provider: Collins Salguero Dx/Rx/DC Orders Clinical Impression: Viral syndrome, Dyspnea, Hypertension, Current use of detention anticoagulation Instructions: ED Dyspnea, ED Viral Syndrome [...] mouth once a day Primary Care Provider: [facility] Referrals: [facility] [Primary Care Provider] - Activity Restrictions/Additional Instructions: [...] your Primary Care Provider. Call [facility] ([phone]) or report to the closest Emergency Room. Call 911 if necessary. 07/10/222 <Electronically signed by Collins Salguero DO> Cosigner Signature (if applicable): CC: [facility] ~ Signed [facility] Work Phone: Discharge summary Author Brinda Duong [facility] Note Date/Time December 21, 2024 2: 09pm [facility] Medical Records Department [address] [place] [address] Instructions for Home/Discharge Instructions 12/21/24 1321 MR#: [id number] Acct: [id number] Name: JUAQUIN KHALIL Rep #:[id number] : 1945 79 From: Brinda Duong MD PCP: [facility] Status:ADM ANALILIA Discharge Instructions DC O2, CPAP, BIPAP needs Home O2 Discharge instructions: No Dressing / Incision Discharge Activity: Return to Normal Activity Weight Bearing Status: Weight bearing as tolerated Dressing / Incision Call your doctor if you observe: Fever of 101 or Higher, Shortness of breath, Dizziness, Swelling in the ankles and Chest pain Follow Up Care Test Results: Test results from this visit will be discussed in further detail at your follow- up appointment, if applicable. Discharge Plan Admission Admit Date/Time: 12/18/24 18:18 Primary Reason for Your Visit: acute on chronic HFrEF Attending Provider: Brinda Duong Primary Care Provider: [facility] Consulting Providers: Jaya Patel Instructions Patient Instructions: ED Heart Failure, Congestive (CHF) Discharge Orders/Prescriptions Prescriptions: New furosemide 40 mg Tablet 40 mg PO BIDLX Qty: 60 1RF nitrofurantoin monohyd/m-cryst 100 mg Capsule 100 mg PO BID Qty: 8 0RF potassium chloride [K-Tab] 20 mEq tablet extended release 20 meq PO DAILY Qty: 30 2RF Continued warfarin [Jantoven] 4 MG tablet 4 [...] Patient Comments: AT BEDTIME ON MONDAYS ONLY hydrocodone-acetaminophen 5-325 mg tablet 1 tab PO Q4H PRN PRN (Reason: Pain) 2 Days Qty: 14 0RF Discontinued cefdinir 300 mg capsule 300 mg PO BID Qty: 10 0RF furosemide [Lasix] 40 mg tablet 40 mg PO DAILY Qty: 30 0RF Referrals / Follow Up: [facility] [Primary Care Provider] - Within 1 Week Disposition Disposition (needs filled in before D/C Order can be placed): Home, Self Care 12/21/24 1321<Electronically signed by Brinda Duong MD>Brinda Duong MD CC: Dr. Jaya Patel, DO; [facility] ~ Signed [facility] Work Phone: Evaluation + Plan note No data available for this section [facility] Evaluation noteNo assessment information available [facility] Work Phone: Evaluation note* Diagnosis Onset Date Resolution Status Diarrhea acute [facility] Work Phone: Evaluation note* Diagnosis Onset Date Resolution Status Aortic valve mass acute Hypoxia acute Leukocytosis acute Mass of head of pancreas acu te Pneumonia acute CHF exacerbation chronic [facility] Work Phone: Evaluation note* Diagnosis Encounter [...] remission Unspecified hypothyroidism documented in this encounter [facility] Encounter for preprocedural cardiovascular examination Pre-operative cardiovascular examination S/P aortic valve replacement [...] remission Unspecified hypothy[facility] Encounter for preprocedural cardiovascular examination Pre-operative cardiovascular examination S/P aortic valve replacement [...] remission Unspecified hypothyroidism documented in this encounter [facility] Chest pain, unspecified type- Primary Encounter for preprocedural cardiovascular examination Pre-operative cardiovascular examination S/P aortic valve replacement [...] mention of having achieved remission Unspecified hypothyroidism Encounter for preprocedural cardiovascular examination Pre-operative cardiovascular examination S/P aortic valve replacement Heart valve replaced by other means 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 January 13, 2023 7:49am Note Date/Time January 13, 2023 7:49am [facility] Medical Records Department [address] [place] [address] History & Physical Exam 01/13/23 0748 MR#: [id number] Acct: [id number] Name: JUAQUIN KHALIL Rep #:[id number] : 1945 77 From: Iker wood MD PCP: [facility] Status:[facility] Location: [place] [address] History and Physical Date of Admission: 01/13/23 [...] a 77-year-old male sent here by the PR for colonoscopy. Patient reports no abdominal pain. [...] He was recommended for colonoscopy by the PR. Patient is on Coumadin for mechanical heart valve. He says he will talk to his Coumadin clinic and they will prescribe him bridging Lovenox. PR has provided him a bowel prep. I [...] proceed with procedure. Iker Tom MD Pager: [facility] [address] [place] [address], [address] [place] [address] Office: I have examined the patient and the H&P has been reviewed. There are no clinicalchanges since date of exam. 01/13/23 0749 <Electronically signed by Iker Tom MD> Cosigner Signature (if applicable): CC: Dr. Iker Tom MD; [facility]~ Signed [facility] Work Phone: Hospital Discharge instructions Additional [...] have any further concerns or worsening of [facility] Work Phone: Reugdc for referral (narrative)No reason for referral information availableWUK Healthcare Work Phone: reason for visit Narrative* Consult, Test, Treat (Routine) - Closed Specialty Diagnoses / Procedures Referred By Contac t Referred To Contact Diagnoses Encounter for preprocedural cardiovascular examination S/P aortic valve replacement S/P CABG (coronary artery bypass graft) Hypertension, unspecified type Nodular goiter Right sided weakness H/O: stroke Chronic myeloid leukemia (HCC) Unspecified hypothyroidism Procedures OFFICE/OUTPATIENT [facility] 60 MINUTES Alexander Ramirez MD [address] [place] [address] Phone: tel: fax: Referral ID Status Reason Start Date Expiration Date V isits Requested Visits Authorized [id number] Closed PCP Requested Referral 12/12/2024 12/12/2025 1 1 [facility] Summary Purpose Family History Relationship Condition Age at Onset Recorded Date/T [...] Unknown April 06, 2016 12:23am Advance Directives Advance Directive Response Recorded Date/ Time Advance Directives Yes April 04, 2016 10:56pm Living Will Yes July 10, 2022 12:16am Power of Exhibit Technician Yes July 10 12:16am Name of Medical Power of Exhibit Technician RAMÍREZ KHALIL July 10, 2022 12:16am Advance Directive Response Recorded Date/ Time Name of Medical Power of Exhibit Technician RAMÍREZ KHALIL January 10, 2023 10:40am Advance Directives Yes April 04, 2016 10:56pm Living Will Yes January 10, 2023 10:40am Power of Exhibit Technician Yes December 10:40am Advance Directive Response Recorded Date/ Time Name of Medical Power of Exhibit Technician Ramírez Khalil May 19, 2023 12:26am Advance Directives Yes April 04, 2016 9:56pm Living Will Yes May 19 12:26am Power of Exhibit Technician Yes May 19, 2023 12:26am Advance Directive Response Recorded Date/ Time Do you have a Healthcare Power of Exhibit Technician? Yes December 18, 2024 2:29pm Name of Medical Power of Exhibit Technician - GLEN December 18, 2024 2:29pm Advance Directives Yes April 04, 2016 10:56pm Advance Directive Response Recorded Date/ Time Do you have a Healthcare Power of Exhibit Technician? Yes December 18, 2024 8:12pm Name of Medical Power of Exhibit Technician - GLEN December 18, 2024 8:12pm Advance Directives Yes April 04, 2016 10:56pm Chief Complaint and Reason for Visit Chief [...] of head of pancreas Pneumonia CHF exacerbation Chief Complaint Admit Date dizziness December 18, 2024 2: 10pm Chief Complaint Admit Date PRESYNCOPAL SYMPTOMS W/ CONCERN FOR CHF December 18, 2024 6:18pm PRESYNCOPAL SYMPTOMS W/ CONCERN FOR CHF December 19, 2024 2:58pm PRESYNCOPAL SYMPTOMS W/ CONCERN FOR CHF December 20, 2024 8:58pm Reason for Visit Admit Date Acute exacerbation of chronic heart fail ure December 18, 2024 6:18pm Acute UTI December 18, 2024 6: 18pm Weakness December 18, 2024 6: 18pm Additional Source Comments Source Comments (unrecognize d section and content) In the event this informatio n is protected by the Federal Confidentiality of Alcohol and Drug Abuse Patient Records regulations: The Federal rules restrict any use of the information to criminally investigate or prosecute any alcohol or drug abuse patient.[facility] the event this information is protected by the Federal Confidentiality of Alcohol and Drug Abuse Patient Records regulations: The Federal rules restrict any use of the information to criminally investigate or prosecute any alcohol or drug abuse patient.[facility] HospitalIn the event this information is protected by the Federal Confidentiality of Alcohol and Drug Abuse Patient Records regulations: The Federal rules restrict any use of the information to criminally investigate or prosecute any alcohol or drug abuse patient.[facility] HospitalIn the event this information is protected by the Federal Confidentiality of Alcohol and Drug Abuse Patient Records regulations: The Federal rules restrict any use of the information to criminally investigate or prosecute any alcohol or drug abuse patient.[facility] HospitalIn the event this information is protected by the Federal Confidentiality of Alcohol and Drug Abuse Patient Records regulations: The Federal rules restrict any use of the information to criminally investigate or prosecute any alcohol or drug abuse patient.[facility] HospitalIn the event this information is protected by the Federal Confidentiality of Alcohol and Drug Abuse Patient Records regulations: The Federal rules restrict any use of the information to criminally investigate or prosecute any alcohol or drug abuse patient.[facility] HospitalIn the event this information is protected by the Federal Confidentiality of Alcohol and Drug Abuse Patient Records regulations: The Federal rules restrict any use of the information to criminally investigate or prosecute any alcohol or drug abuse patient.[facility] (unrecognized sect ion and content) No Status Records FoundNo Status Records FoundNo Status Records FoundNo Status Records Found INFORMATION SOURCE (unrecogn ized section and content) DATE CREATED AUTHOR 06/12/2021 [facility] ([place]) DATE CREATED AUTHOR AUTHOR'S ORGANIZ ATION 05/22/2024 [facility] DATE CREATED AUTHOR AUTHOR'S ORGANIZ ATION 01/04/2025 [facility] DATE CREATED AUTHOR AUTHOR'S ORGANIZ ATION 01/06/2025 [facility] Care Teams (unrecognized sec tion and content) Team Status: Active Member Role Status Dates [facility] Family Provider Active [facility] Primary Care Provider Active Team Status: Inactive Member Role Status Dates [facility] Primary Care Provider Active Dr. Collins Salguero DO Emergency Provider Active Team Status: Inactive Member Role Status Dates [facility] Primary Care Provider, Referring Provider Active Dr. Iker Tom MD Attending Provider Active Team Status: Active Member Role Status Dates [facility] Primary Care Provider, Referring Provider Active Dr. Iker Tom MD Attending Provider, Other Provider Active Team Status: Active Member Role Status Dates [facility] Primary Care Provider Active Dr. Leighton Drake , DO Emergency Provider Active Dr. Desmond Owen , DO Admit Provider, Other Provid er Active Dr. Constantino Albarado , DO Attending Provider, Other Pro vider Active Team Status: Active Member Role Status Dates [facility] Primary Care Provider Active Dr. Chester Montano MD Attending Provider Active Team Status: Active Member Role Status Dates [facility] Primary Care Provider Active Dr. Leighton Drake , DO Emergency Provider Active Dr. Desmond Owen , DO Admit Provider, Other Provid er Active Dr. Jaya Patel , DO Attending Provider, Other Provider Active Dr. Cosntantino Albarado , DO Other Provider Active Team Status: Active Member Role Status Dates [facility] Primary Care Provider Active Dr. Leighton Drake , DO Emergency Provider Active Dr. Desmond Owen , DO Admit Provider, Other Provid er Active Dr. Jaya Patel , DO Attending Provider, Other Provider Active Dr. Constantino Albarado , DO Other Provider Active Dr. Chester Montano MD Other Provider Active Team Status: Active Member Role Status Dates [facility] Primary Care Provider Active Dr. Leighton Drake , DO Emergency Provider Active Dr. Desmond Owen , DO Admit Provider, Other Provid er Active Dr. Jaya Patel , DO Other Provider Active Dr. Constantino Albarado , DO Other Provider Active Dr. Chester Montano MD Attending Provider, Other Provid er Active Team Status: Active Member Role Status Dates [facility] Primary Care Provider Active Dr. Leighton [...] Team Status: Active Member Role Status Dates [facility] Primary Care Provider Active Dr. Moreno Bob MD Attending Provider Active Team Status: Inactive Member Role Status Dates [facility] Primary Care Provider Active Dr. Leighton Drake , DO Emergency Provider Active Dr. Desmond Owen , DO Admit Provider, Other Provid er Active Dr. Constantino Albarado , DO Other Provider Active Dr. Chester Montano MD Other Provider Active Dr. Desmond Castaneda MD Attending Provider Active Dr. Jaya Patel , DO Other Provider Active [employer] Relationship Specialty Start Date End Date Leanna Solares APRN [address] [place] [address] PCP - General Primary Care 11/25/24 Alexander Ramirez MD [address] [place] [address] Surgeon Cardiac Surg 11/18/24 Team Status: Active Member Role/Relationship Status Dates [facility] Primary Care Provider Active Team Status: Inactive Member Role/Relationship Status Dates [facility] Primary Care Provider Active Start: December 18, 2024 End: December 18, 2024 Dr. Anup Guerrero , DO Emergency Provider Active S tart: December 18, 2024 End: December 18, 2024 Team Status: Inactive Member Role/Relationship Status Dates [facility] Primary Care Provider Active Start: December 18, 2024 End: December 21, 2024 Dr. Anup Guerrero , DO Emergency Provider Active S tart: December 18, 2024 End: December 21, 2024 Dr. Jaya Patel , DO Admit Provider Active Start: December 18, 2024 End: December 21, 2024 Dr. Jaya Patel , DO Other Provider Active Start: December 18, 2024 End: December 21, 2024 Dr. Brinda Duong MD Attending Provider Active Start: December 18, 2024 End: December 21, 2024 Team Status: Active Member Role/Relationship Status Dates [facility] Primary Care Provider Active Start: December 19, 2024 Dr. Moreno Bob MD Attending Provider Active S tart: December 19, 2024 Team Status: Active Member Role/Relationship Status Dates [facility] Primary Care Provider Active Start: December 19, 2024 Dr. Anup Guerrero DO Emergency Provider Active S tart: December 19, 2024 Dr. aJya Patel , DO Admit Provider Active Start: December 19, 2024 Dr. Jaya Patel , DO Other Provider Active Start: December 19, 2024 Dr. Brinda Duong MD Attending Provider Active Start: December 19, 2024 Dr. Brinda Duong MD Other Provider Active St art: December 19, 2024 Team Status: Active Member Role/Relationship Status Dates [facility] Primary Care Provider Active Start: December 20, 2024 Dr. Anup Guerrero DO Emergency Provider Active S tart: December 20, 2024 Dr. Jaya Patel , Admit Provider Active Start: December 20, 2024 Dr. Jaya Patel , Other Provider Active Start: December 20, 2024 Dr. Brinda Duong MD Other Provider Active St art: December 20, 2024 Dr. Autumn Kohler MD Attending Provider Active Start: December 20, 2024 Oracle Database Manager Relationship Specialty Start Date End Date Leanna Solares APRN [address] [place] [address] PCP - General Primary Care 11/25/24 Alexander Ramirez MD [address] [place] [address] Surgeon Cardiac Surg 11/18/24 Oracle Database Manager Relationship Specialty Start Date End Date Leanna Solares APRN [address] [place] [address] PCP - General Primary Care 11/25/24 Alexander Ramirez MD [address] [place] [address] Surgeon Cardiac Surg 11/18/24 Oracle Database Manager Relationship Specialty Start Date End Date Leanna Solares APRN [address] [place] [address] PCP - General Primary Care 11/25/24 Alexander Ramirez MD [address] [place] [address] Surgeon Cardiac Surg 11/18/24 Oracle Database Manager Relationship Specialty Start Date End Date Leanna Solares APRN [address] [place] [id number] PCP - General Primary Care 11/25/24 Alexander Ramirez MD [address] [place] [address] Surgeon Cardiac Surg 11/18/24 Goals (unrecognized section and content) Goals may be documented in a n alternate section Reason for Visit (unrecogniz ed section and content) Reason Comments Referral Information Reason Comments Radiology CT Specialty Diagnoses / Procedures Referred By Ashishac t Referred To Contact CT IMAGING Diagnoses Encounter for preprocedural cardiovascular examination S/P aortic valve replacement S/P CABG (coronary artery bypass graft) Hypertension, unspecified type Nodular goiter Right sided weakness H/O: stroke Chronic myeloid leukemia (HCC) Unspecified hypothyroidism Procedures CTA CHEST (GATED) W IVCON CT ANGIOGRAPHY CHEST W/CONTRAST/NONCONTRAST Alexander Ramirez MD [address] [place] [address] Phone: tel: fax: [facility] [place] [phone] Referral ID Status Reason Start Date Expiration Date V isits Requested Visits Authorized [id number] Closed Auto-Generate d Referral 10/16/2024 04/14/2025 1 1 Reason Comments New Patient Specialty Diagnoses / Procedures Referred By Contac t Referred To Contact Cardiology Diagnoses Encounter for preprocedural cardiovascular examination S/P aortic valve replacement S/P CABG (coronary artery bypass graft) Hypertension, unspecified type Nodular goiter Right sided weakness H/O: stroke Chronic myeloid leukemia (HCC) Unspecified hypothyroidism Procedures OFFICE/OUTPATIENT NEW HIGH [facility] 60 MINUTES Alexander Ramirez MD [address] [place] [address] Phone: tel: fax: Referral ID Status Reason Start Date Expiration Date V isits Requested Visits Authorized [id number] Closed PCP Requested Referral 12/12/2024 12/12/2025 1 1 FOR RECORDS PERTAINING TO PATIENTS WHO ARE [...] BE BASED ON THE PRIMARY CLINICAL RECORDS. [facility] [facility]. provides no warranty or guarantee of the accuracy or completeness of information in this document.
[2025-01-07 23:58] LABS: Magnesium 1.9 mg/dL (1.5-2.2)
[2025-01-08] VITALS (9 sets, daily range): BP systolic 129–161; BP diastolic 51–67; PULSE 60–89; RESP 16–18; TEMP 36.1–36.4; O2SAT 92–97; BMI 31.3
[2025-01-08] MEDS: MELATONIN 3 MG TABLET PO (00:46)
[2025-01-08 00:52] LABS: CPK Total, Creatine Kinase 30 U/L (24-195)
[2025-01-08 06:02] LABS: Hematocrit 32.1 % (40-54); Hemoglobin 10.4 g/dL (13.0-16.5); Immature Granulocytes Count 0.030 X10^3/uL (0.0-0.0); Mean Corp Hgb Conc 32.4 g/dL (32-36); Mean Corpuscular Volume 90.2 fL (80-94); Mean Platelet Vol. 10.0 fl (6.2-12.0); NRBC Flagged by Analyzer 0 % (0-5); Platelet Count 204 K/mm3 (150-450); RBC Distribution Width CV 16.4 % (11.6-14.6); RBC Distribution Width SD 54.4 fl (35.1-43.9); Red Blood Count 3.56 M/mm3 (4.6-6.2); White Blood Count 5.9 K/mm3 (4.4-11.0)
[2025-01-08 06:11] LABS: Prothrombin Time (Protime)PT. 34.2 SECONDS (11.7-14.9)
[2025-01-08] MEDS: 0.9% Saline Lock 10 ML Syringe IV ×2 (06:15→10:51)
[2025-01-08 06:38] LABS: Mucous, Urine 0 SEEN /hpf (<or=2+)
[2025-01-08 06:42] LABS: AST(SGOT) 15 U/L (<=37); Alanine Aminotransfer ALT/SGPT 17 U/L (<=46); Albumin, Serum 2.8 g/dL (3.4-4.8); Alkaline Phosphatase 206 U/L (40-129); Anion Gap 6 (5-15); BUN 10 mg/dL (4-19); BUN/Creat Ratio 14.4 RATIO (10-20); Calcium,Total 8.1 mg/dL (7.6-11.0); Carbon Dioxide 23.9 mmol/L (21.0-32.0); Chloride 107 mmol/L (98-108); Estimated Creatinine Clearance 88.37 ml/min (50-250); Globulin 2.4 g/dL (2.2-4.2); Glucose 91 mg/dL (70-99); Potassium 4.5 mmol/L (3.3-5.1)
[2025-01-08 06:46] LABS: Color, Urine Yellow (Yellow); Glucose, Dipstick Normal (Normal); Ketone-Dipstick Negative (Negative); Leukocyte Esterase-Dipstick 500 /ul (Negative); Nitrite-Dipstick Negative (Negative); Occult Blood-Urine 10 /ul (Negative); Protein-Dipstick 15 mg/dl (Negative); Specific Gravity, Urine 1.020 (1.002-1.030); Urine Bilirubin Dipstick Negative (Negative)
[2025-01-08 06:54] LABS: Red Blood Cells-Urine 0-5 SEEN /hpf (0-5); Squamous Epithelial Cells - UA 0-5 SEEN /hpf (0-5); Transitional Epithelial - Ur 0-5 SEEN /hpf (0-5)
[2025-01-08] MEDS: Potassium Chloride Oral Tablet 20 MEQ PO (08:28)
--- NOTE | 2025-01-08 10:56 | DCINST_ITS ---
Discharge Instructions DC O2, CPAP, BIPAP needs Home O2 Discharge instructions: No Dressing / Incision Discharge Activity: Return to Normal Activity Dressing / Incision Call your doctor if you observe: Fever of 101 or Higher, Shortness of breath, Dizziness, Fainting spells, Swelling in the ankles, Chest pain and Increased palpitations (irregular heartbeat) Follow Up Care Test Results: Test results from this visit will be discussed in further detail at your follow- up appointment, if applicable. Discharge Plan Admission Admit Date/Time: 01/07/25 23:20 Attending Provider: Lalo Summers Primary Care Provider: [facility] Consulting Providers: Desmond Owen Discharge Orders/Prescriptions Prescriptions: New oxycodone-acetaminophen 5-325 mg tablet 1 tab PO TID PRN (Reason: pain) 3 Days Qty: 8 0RF Continued warfarin [Jantoven] 4 MG tablet 4 mg PO SUTUWETHFRSA atorvastatin 40 MG tablet 80 mg PO DAILY isosorbide mononitrate 30 MG tablet 30 mg PO DAILY Patient Comments: Heart allopurinol 100 MG tablet 100 mg PO DAILYCM levothyroxine 25 MCG tablet 50 mcg PO DAILY pantoprazole 40 MG tablet 40 mg PO BID Patient Comments: stomach ferrous sulfate 325 MG tablet 325 mg PO DAILY metoprolol tartrate 25 MG tablet 25 mg PO DAILY gabapentin 300 MG capsule 300 mg PO DAILY tamsulosin 0.4 mg capsule 0.4 mg PO DAILY Patient Comments: Take 1 capsule by mouth once a day finasteride 5 mg tablet 5 mg PO DAILY warfarin [Jantoven] 2 mg tablet 2 mg PO DAILY Patient Comments: AT BEDTIME ON MONDAYS ONLY furosemide 40 mg Tablet 40 mg PO BIDLX Qty: 60 1RF potassium chloride [K-Tab] 20 mEq tablet extended release 20 meq PO DAILY Qty: 30 2RF Discontinued hydrocodone-acetaminophen 5-325 mg tablet 1 tab PO Q4H PRN PRN (Reason: Pain) 2 Days Qty: 14 0RF Referrals / Follow [place] [facility] [Primary Care Provider] - Disposition Disposition (needs filled in before D/C Order can be placed): Home, Self Care
--- NOTE | 2025-01-08 12:24 | PHA.DC_ITS ---
Pharmacy [facility] Counseling Pharmacy Service has performed discharge medication reconciliation and counseling for this patient. 1. PERCOCET 5/325MG QT PO TID PRN PAIN 2. STOP NORCO The patient's discharge medication list was reviewed for discrepancies and discrepancies were resolved. The patient was counseled on the following discharge medications and changes in medications for homegoing were reviewed. The Reason for Use, instructions for use, and potential side effects were reviewed for all new medications. The patient's questions regarding all of their medications were answered. The patient was able to verbally demonstrate an understanding of their discharge medications. Medications at Discharge Home Medications warfarin 4 mg tablet (Jantoven) 4 mg PO SUTUWETHFRSA blood thinner 04/03/16 allopurinol 100 mg tablet 100 mg PO DAILYCM gout 04/04/16 atorvastatin 40 mg tablet 80 mg PO DAILY cholesterol 04/04/16 ferrous sulfate 325 mg (65 mg iron) tablet 325 mg PO DAILY supplement 04/04/16 isosorbide mononitrate 30 mg tablet,extended release 24 hr 30 mg PO DAILY chest pain 04/04/16 levothyroxine 25 mcg tablet 50 mcg PO DAILY thyroid 04/04/16 metoprolol tartrate 25 mg tablet 25 mg PO DAILY blood pressure 04/04/16 pantoprazole 40 mg tablet,delayed release 40 mg PO BID reflux 04/04/16 gabapentin 300 mg capsule 300 mg PO DAILY nerve pain 01/10/20 tamsulosin 0.4 mg capsule 0.4 mg PO DAILY prostate 07/09/22 finasteride 5 mg tablet 5 mg PO DAILY prostate 05/18/23 warfarin 2 mg tablet (Jantoven) 2 mg PO DAILY blood thinner 05/19/23 furosemide 40 mg tablet 40 mg PO BIDLX #60 tabs 12/21/24 potassium chloride 20 mEq tablet,extended release (K-Tab) 20 meq PO DAILY #30 tabs 12/21/24 oxycodone-acetaminophen 5 mg-325 mg tablet 1 tab PO TID PRN pain 3 days #8 tabs 01/08/25
--- NOTE | 2025-01-08 13:41 | PCM.DC.SUM ---
Providers Date of Admission: 01/07/25 Primary Care Physician: [facility] Reason For Visit: FALL WITH GENERALIZED WEAKNESS AND UNCONTROLLED Diagnosis Discharge Diagnosis (1) Uncontrolled pain: Status: Acute Code(s): R52 - Pain, unspecified (2) Fall: Status: Acute Code(s): W19.XXXA - Unspecified fall, initial encounter Qualifiers: Encounter type: sequela Qualified Code(s): W19.XXXS - Unspecified fall, sequela (3) Generalized weakness: Status: Acute Code(s): R53.1 - Weakness (4) Contusion of right flank: Status: Acute Code(s): S30.1XXA - Contusion of abdominal wall, initial encounter (5) Obesity (BMI 30.0-34.9): Status: Acute Code(s): E66.811 - Obesity, class 1 (6) Osteoarthritis: Status: Acute Code(s): M19.90 - Unspecified osteoarthritis, unspecified site Qualifiers: Osteoarthritis location: unspecified site Osteoarthritis type: unspecified Qualified Code(s): M19.90 - Unspecified osteoarthritis, unspecified site (7) Hx of aortic valve replacement, mechanical: Status: Acute Code(s): Z95.2 - Presence of prosthetic heart valve (8) Chronic anticoagulation: Status: Acute Code(s): Z79.01 - custodial (current) use of anticoagulants Medications at Discharge Home Medications warfarin 4 mg tablet (Jantoven) 4 mg PO SUTUWETHFRSA blood thinner 04/03/16 allopurinol 100 mg tablet 100 mg PO DAILYCM gout 04/04/16 atorvastatin 40 mg tablet 80 mg PO DAILY cholesterol 04/04/16 ferrous sulfate 325 mg (65 mg iron) tablet 325 mg PO DAILY supplement 04/04/16 isosorbide mononitrate 30 mg tablet,extended release 24 hr 30 mg PO DAILY chest pain 04/04/16 levothyroxine 25 mcg tablet 50 mcg PO DAILY thyroid 04/04/16 metoprolol tartrate 25 mg tablet 25 mg PO DAILY blood pressure 04/04/16 pantoprazole 40 mg tablet,delayed release 40 mg PO BID reflux 04/04/16 gabapentin 300 mg capsule 300 mg PO DAILY nerve pain 01/10/20 tamsulosin 0.4 mg capsule 0.4 mg PO DAILY prostate 07/09/22 finasteride 5 mg tablet 5 mg PO DAILY prostate 05/18/23 warfarin 2 mg tablet (Jantoven) 2 mg PO DAILY blood thinner 05/19/23 furosemide 40 mg tablet 40 mg PO BIDLX #60 tabs 12/21/24 potassium chloride 20 mEq tablet,extended release (K-Tab) 20 meq PO DAILY #30 tabs 12/21/24 oxycodone-acetaminophen 5 mg-325 mg tablet 1 tab PO TID PRN pain 3 days #8 tabs 01/08/25 Hospital Course Operations None Procedures None Summary of Care Provided Minutes Spent on Discharge: 33 Hospital Course: Per HPI: EDDIE JIMENEZ, is a 79 M with a past medical history of essential hypertension; on metoprolol and furosemide BID, hyperlipidemia; on atorvastatin, hypothyroidism; on levothyroxine, former tobacco abuse, obesity; with BMI of 31.9 this admission, JONNA; off CPAP since weight loss, history of atrial fibrillation and mechanical AVR; on warfarin, CAD; s/p stent (~2001) on ISMO, history of CVA; without residual deficit (2006), EMILE; on ferrous sulfate, peripheral neuropathy; on gabapentin, history of migraine headaches, BPH; on finasteride and tamsulosin, GERD; on pantoprazole BID, history of IBS, history of laparoscopic cholecystectomy, history of gout; on allopurinol, OA; s/p bilateral THR's plus chronic back pain on hydrocodone-acetaminophen q. 4 hours prn and recent admission here from December 18, 2024 to December 21, 2024 for treatment of AE CHF; with patient informed by [facility] his AVR was failing complicated by UTI with very recent fall onto his Right abdomen who presents to [facility] ER complaining of Right flank pain and bruising. Mr. Jimenez reports his symptoms began approximately 4 days ago after he fell sideways after missing some steps causing him to strike his Right lower abdomen/flank area. Initially EMS was contacted for lift assist with patient declining transfer to ER at that time. He denies LOC or significant head trauma with his fall. However, he does admit to worsening sharp, Right-sided abdominal pain that is made worse with movement causing him to feel unsafe to return home so he made a request to the ER physician to stay. He admits to generalized weakness but he denies related fever, chills, nausea, vomiting, diarrhea, constipation, chest pain, palpitations, heart racing, headache, paresthesias, dysuria or hematuria. In the ER he underwent a CT scan of the chest/abdomen/pelvis that revealed no acute traumatic findings within the chest, abdomen or pelvis with chronic Right lower lobe fracture deformities and multilevel degenerative changes in the spine with DISH with chronic L4 compression fracture deformity with kyphoplasty bone cement with diffuse osteopenia with otherwise unremarkable laboratory studies and vital signs in addition to a therapeutic INR of 3.1 present on admission. He was then diagnosed with Uncontrolled Pain after recent Fall with Generalized Weakness with patient then admitted to the general medical floor under observation status for a stay that is expected to be less than 2 midnights. Hospital Course: 1. Significant pain after fall with generalized weakness?79-year-old male fell several days ago onto his right side. CT scan of his chest abdomen pelvis is negative for any acute trauma only chronic findings. Lab work and everything was okay even though he has an elevated INR from Coumadin for mechanical aortic valve replacement. He does have ecchymosis and a hematoma on his side. He will present to the hospital because he was having significant pain at home it was getting worse. Today he only received a single dose of morphine and was able to ambulate with physical therapy and Occupational Therapy without any significant discomfort. He was able to ambulate 250 feet with no significant weakness and was modified independent on all of his needs. I discussed with him and his the possibility of discharge today and they expressed understanding of the risks and benefits of going home and would like for him to go home today. Will provide him with a few days of oxycodone for pain relief, we discussed not to drive while taking oxycodone and that it would be most beneficial to help him get some appropriate sleep at night. I do recommend he follow-up with his PCP in 3 to 5 days. Of note he was recently admitted to the hospital for UTI with Enterobacter sensitive to Cipro and Macrobid and he was discharged on 4 days of Macrobid. Urine analysis this morning was obtained, unclear indication as to why it was ordered as he is denying urinary symptoms to me, no fevers or chills and no leukocytosis. Given the fact that he was recently treated we will hold off on empirically treating him but will send a urine culture that can be followed up by his primary care doctor in the outpatient setting. 2. Aortic mechanical valve, essential hypertension, hyperlipidemia, gout, hypothyroidism, coronary artery disease status post stent, history of CVA, GERD, peripheral neuropathy, iron deficiency anemia are all chronic medical conditions which complicate his care. His home medications were continued where appropriate Physical Exam Narrative General: Alert, Oriented x3, Cooperative, No apparent distress HEENT: Atraumatic, PERRLA, EOMI, Normocephalic Oral: Moist Mucosa Neck: Supple, No JVD Lungs: Diminished, Normal air movement, No rhonchi, No wheeze, No rales Cardiovascular: Regular rate, Regular Rhythm, Normal S1, Normal S2, No murmurs Abdomen: Soft, Non Tender, Non-Distended, No Hepato-splenomegaly Extremities: No edema, Capillary Refill Less than 3 Seconds Skin: Ecchymosis/hematoma on right flank Musculoskeletal: No Tenderness to Palpation of Joints or Extremities Neurological: No focal neurological deficits, moves all extremities, sensation intact Psych/Mental Status: Flat Weight / BMI Weight Weight: 218 lb 7.649 oz Body Mass Index (BMI) 31.3 ABG / Lab / Microbiology Data 01/08/25 05:49 01/08/25 05:49 Laboratory: Laboratory Results - last 24 hr 01/07/25 20:54: WBC 7.1, RBC 3.99 L, Hgb 11.6 L, Hct 36.5 L, MCV 91.5, MCH 29.1, MCHC 31.8 L, RDW Std Deviation 54.9 H, RDW Coeff of Clement 16.3 H, Plt Count 242, MPV 10.1, Immature Gran % (Auto) 0.400, Neut % (Auto) 77.2 H, Lymph % (Auto) 12.4 L, Eddy % (Auto) 5.9, Eos % (Auto) 3.5, Baso % (Auto) 0.6, Absolute Neuts (auto) 5.5, Absolute Lymphs (auto) 0.88, Nucleated RBC % 0, PT 32.4 H, INR 3.1, Sodium 136, Potassium 5.1, Chloride 104, Carbon Dioxide 23.5, Anion Gap 9, BUN 11, Creatinine 0.79, Estim Creat Clear Calc 89.04, Est GFR (MDRD) Non-Af 91, BUN/Creatinine Ratio 13.4, Glucose 103 H, Calcium 8.5, Magnesium 1.9, Total Bilirubin 1.42 H, AST 14, ALT 15, Alkaline Phosphatase 226 H, Total Creatine Kinase 30, Total Protein 6.2, Albumin 3.2 L, Globulin 3.0, Albumin/Globulin Ratio 1.1, TSH 2.540 01/08/25 05:49: WBC 5.9, RBC 3.56 L, Hgb 10.4 L, Hct 32.1 L, MCV 90.2, MCH 29.2, MCHC 32.4, RDW Std Deviation 54.4 H, RDW Coeff of Clement 16.4 H, Plt Count 204, MPV 10.0, Immature Gran % (Auto) 0.500, Neut % (Auto) 74.8 H, Lymph % (Auto) 13.4 L, Eddy % (Auto) 6.0, Eos % (Auto) 4.8, Baso % (Auto) 0.5, Absolute Neuts (auto) 4.4, Absolute Lymphs (auto) 0.79 L, Nucleated RBC % 0, PT 34.2 H, INR 3.3, Sodium 136, Potassium 4.5, Chloride 107, Carbon Dioxide 23.9, Anion Gap 6, BUN 10, Creatinine 0.67 L, Estim Creat Clear Calc 88.37, Est GFR (MDRD) Non-Af 95, BUN/Creatinine Ratio 14.4, Glucose 91, Calcium 8.1, Phosphorus 2.9, Total Bilirubin 1.28, AST 15, ALT 17, Alkaline Phosphatase 206 H, Total Protein 5.3 L, Albumin 2.8 L, Globulin 2.4, Albumin/Globulin Ratio 1.2 01/08/25 06:10: Urine Color Yellow, Urine Clarity Sl. Cloudy, Urine pH 6.0, Ur Specific [place] 1.020, Urine Protein 15 H, Urine Glucose (UA) Normal, Urine Ketones Negative, Urine Occult Blood 10 H, Urine Nitrite Negative, Urine Bilirubin Negative, Urine Urobilinogen 4 H, Ur Leukocyte Esterase 500 H, Urine RBC 0-5 SEEN, Urine WBC 50-100 SEEN, Ur Squamous Epith Cells 0-5 SEEN, Ur Transition Epith Cell 0-5 SEEN, Urine Bacteria 4+, Urine Mucus 0 SEEN Radiography Diagnostic Testing: Radiology Impression Chest/Abdomen/Pelvis CT 01/07/25 20:25 IMPRESSION: 1. No acute traumatic findings within the chest, abdomen or pelvis. 2. Multiple non-acute ancillary findings, as described above. Reading Location: [facility] D/C Instructions Call your doctor if you observe: Fever of 101 or Higher, Shortness of breath, Dizziness, Fainting spells, Swelling in the ankles, Chest pain and Increased palpitations (irregular heartbeat) DC O2, CPAP, BIPAP Needs Home O2 Discharge instructions: No Meaningful Use Info Meaningful Use Meaningful Use Diagnoses (Choose all that apply): None applicable Discharge Plan Admission Admit Date/Time: 01/07/25 23:20 Attending Provider: Lalo Summers Primary Care Provider: [facility],[place] Consulting Providers: Desmond Owen Discharge Orders/Prescriptions Prescriptions: New oxycodone-acetaminophen 5-325 mg tablet 1 tab PO TID PRN (Reason: pain) 3 Days Qty: 8 0RF Continued warfarin [Jantoven] 4 MG tablet 4 mg PO SUTUWETHFRSA atorvastatin 40 MG tablet 80 mg PO DAILY isosorbide mononitrate 30 MG tablet 30 mg PO DAILY Patient Comments: Heart allopurinol 100 MG tablet 100 mg PO DAILYCM levothyroxine 25 MCG tablet 50 mcg PO DAILY pantoprazole 40 MG tablet 40 mg PO BID Patient Comments: stomach ferrous sulfate 325 MG tablet 325 mg PO DAILY metoprolol tartrate 25 MG tablet 25 mg PO DAILY gabapentin 300 MG capsule 300 mg PO DAILY tamsulosin 0.4 mg capsule 0.4 mg PO DAILY Patient Comments: Take 1 capsule by mouth once a day finasteride 5 mg tablet 5 mg PO DAILY warfarin [Jantoven] 2 mg tablet 2 mg PO DAILY Patient Comments: AT BEDTIME ON MONDAYS ONLY furosemide 40 mg Tablet 40 mg PO BIDLX Qty: 60 1RF potassium chloride [K-Tab] 20 mEq tablet extended release 20 meq PO DAILY Qty: 30 2RF Discontinued hydrocodone-acetaminophen 5-325 mg tablet 1 tab PO Q4H PRN PRN (Reason: Pain) 2 Days Qty: 14 0RF Referrals / Follow Up: [facility] [Primary Care Provider] - Disposition Disposition (needs filled in before D/C Order can be placed): Home, Self Care Charges/Coding Visit Charges Inpatient E&M: 03327 Disch Hosp >30min
== END 2025-01-08 14:10 | disposition home or self-care (01) ==
LOC: ED 22:47 → MS3 23:27
PROVIDERS: Admitting Provider Internal Medicine; Emergency Provider Emergency Medicine; Visit Provider Family Medicine
DX: R53.1 Weakness (principal); I48.91 Unspecified atrial fibrillation; S30.1XXA Contusion of abdominal wall, initial encounter; D50.9 Iron deficiency anemia, unspecified; G62.9 Polyneuropathy, unspecified; Z79.01 Long term (current) use of anticoagulants; R79.1 Abnormal coagulation profile; M19.90 Unspecified osteoarthritis, unspecified site; E66.811 Obesity, class 1; G47.33 Obstructive sleep apnea (adult) (pediatric); E03.9 Hypothyroidism, unspecified; Z87.891 Personal history of nicotine dependence; I10 Essential (primary) hypertension; Z79.899 Other long term (current) drug therapy; I33.0 Acute and subacute infective endocarditis; E78.00 Pure hypercholesterolemia, unspecified; K21.9 Gastro-esophageal reflux disease without esophagitis; W19.XXXA Unspecified fall, initial encounter; Z68.31 Body mass index [BMI] 31.0-31.9, adult; M10.9 Gout, unspecified; I25.10 Atherosclerotic heart disease of native coronary artery without angina pectoris; Z79.890 Hormone replacement therapy; Z95.2 Presence of prosthetic heart valve; G89.29 Other chronic pain; N40.0 Benign prostatic hyperplasia without lower urinary tract symptoms
CPT/HCPCS: 36415; 71250; 74176; 80053; 81001; 82550; 83735; 84100; 84443; 85025; 85610; 93005; 94668; 96374; 96375; 96376; 97161; 97166; 99221; 99283; A4216; G0378; J2405

== ENCOUNTER 2025-02-06 15:02 | Inpatient (IN) | payer OTHER, SELFPAY ==
[2025-02-06] VITALS (9 sets, daily range): BP systolic 153–195; BP diastolic 52–84; PULSE 63–74; RESP 16–22; TEMP 35.8–36.6; O2SAT 96–99; BMI 32.5; BMI 31.8
--- NOTE | 2025-02-06 15:19 | CT_ITS ---
PROCEDURE: STROKE BRAIN/HEAD WITHOUT CONT 02/06/2025 REASON FOR EXAM: NEURO DEFICIT, ACUTE, STROKE SUSPECTED TECHNIQUE: Procedure Code: CTBR.ST Modality: CT Procedure: STROKE BRAIN/HEAD WITHOUT CONT Coronal and Sagittal reconstruction series were provided. One or more dose reduction techniques were used (e.g., Automated exposure control, adjustment of the mA and/or kV according to patient size, use of iterative reconstruction technique. COMPARISON: 12/18/2024. FINDINGS: Moderate global parenchymal atrophy. Redemonstration of left frontotemporal encephalomalacia. No evidence of acute hemorrhage or infarction. No extra-axial blood or fluid collections. The paranasal sinuses and mastoid air cells are clear. The calvarial vault and skull base are intact. CT/STROKE Brain/Head without Cont IMPRESSION: No acute intracranial abnormality. Chronic and ancillary findings as above. Reading Location: [id number]
--- NOTE | 2025-02-06 15:19 | CT_ITS ---
PROCEDURE: STROKE CTA HEAD AND NECK W/CON 02/06/2025 REASON FOR EXAM: NEURO DEFICIT, ACUTE, STROKE SUSPECTED TECHNIQUE: Procedure Code: CTCTA.ST.HN Modality: CT Procedure: STROKE CTA HEAD AND NECK W/CON Multiplanar Sagittal and Coronal images were obtained. One or more dose reduction techniques were used (e.g., Automated exposure control, adjustment of the mA and/or kV according to patient size, use of iterative reconstruction technique). FINDINGS: Bilateral pleural effusions are present. Enlargement of thyroid likely representing a multinodular goiter. The common carotid arteries are patent. Atherosclerosis of the bilateral carotid bulbs/proximal internal carotid arteries with less than 50% stenosis. Atherosclerosis of the carotid siphons with less than 50% stenosis. The cervical vertebral arteries are patent. The anterior cerebral, anterior communicating, middle cerebral, and posterior cerebral arteries are patent. The intracranial vertebrobasilar system is patent. CT/STROKE CTA Head AND Neck W/Con IMPRESSION: No acute arterial abnormality of the head or neck. Atherosclerosis as above. Bilateral pleural effusions. Multinodular goiter. Reading Location: [id number]
--- NOTE | 2025-02-06 15:31 | EDS_ITS ---
HPI History of Present Illness Chief Complaint: Fatigue Detail of Chief Complaint: Last known well 1500 on February 05 Informant: patient, spouse/S.O. and family Onset/Context/Timing Onset: - (Last known well February 05, Monday, 1499) Context: - (Unknown) Timing: Continuous Quality: Right-sided weakness Current Severity: Moderate Maximum Severity: Moderate Worsened by: Presumed stroke, has had prior stroke Relieved by: Nothing Associated Symptoms Associated Symptoms: Patient is on Coumadin for prosthetic metallic valve aortic and on Plavix a Narrative Narrative: Patient is 79-year-old male. He has history of prosthetic aortic valve, mechanical on Coumadin, coronary artery disease with deployment of stent LAD yesterday, hypertension, kidney disease, knee long-term anticoagulant use, osteoarthritis. He was admitted on February 04 for perforation for LAD stent and echo. He is presently on Coumadin. He was discharged from [facility] this morning. Family brought him here because he could not get out of the car. He was able to walk into the hospital on February 04. Was last seen normal for patient February 05 at 1500. According to has had 1 prior stroke. Prior similar symptoms: Yes Recent Illness/Hospitalization: Yes PFSH PFS Medical History Acute UTI Weakness Wears hearing aid Thyroid disease High cholesterol Excessive bleeding Back pain Migraine headache Stroke/cerebrovascular accident History of IBS Gastric reflux Former smoker Sleep apnea Shortness of breath on exertion Leg cramps History of pain when walking History of edema History of echocardiogram History of stress test Cardiology follow-up encounter FH: bilateral hip replacements Home Medications ?Medication ?Instructions ?Recorded ?Last Taken ?Type warfarin 4 mg tablet (Jantoven) 4 mg PO DAILY blood th inner 04/03/16 01/08/23 History allopurinol 100 mg tablet 100 mg PO DAILYCM gout 04/0412/18/24 History atorvastatin 40 mg tablet 80 mg PO DAILY cholesterol 1 06/05/15 12/18/24 History ferrous sulfate 325 mg (65 mg 325 mg PO DAILY suppleme nt 04/04/16 12/18/24 History iron) tablet isosorbide mononitrate 30 mg 30 mg PO DAILY chest pain 04/04/16 12/18/24 History tablet,extended release 24 hr levothyroxine 25 mcg tablet 50 mcg PO DAILY thyroid 12/18/24 History metoprolol tartrate 25 mg tablet 25 mg PO DAILY blood pressure 04/04/16 12/18/24 History pantoprazole 40 mg tablet,delayed 40 mg PO BID reflux 04/04/16 12/18/24 History release gabapentin 300 mg capsule 300 mg PO DAILY nerve pain 0 01/10/20 12/18/24 History tamsulosin 0.4 mg capsule 0.4 mg PO DAILY prostate 03/2312/18/24 History furosemide 40 mg tablet 40 mg PO BIDLX #60 tabs 11/30 07/23 Unknown Rx potassium chloride 20 mEq 20 meq PO DAILY #30 tabs Unknown Rx tablet,extended release (K-Tab) aspirin 81 mg tablet,delayed 81 mg PO DAILY 02/06/25 U nknown History release (Adult Aspirin Regimen) clopidogrel 75 mg tablet (Plavix) 75 mg PO DAILY 02/06 Unknown History lisinopril 10 mg tablet 10 mg PO DAILY 02/06/25 Unkn own History Allergy/AdvReac Type Severity Reaction Status Date / Time hydrocodone bitartrate (From Allergy Other Verified 02/06/25 15:13 Vicodin) Family History no significant family his Surgical History History of total right hip replacement History of total left hip replacement History of heart surgery History of cardiac catheterization History of coronary artery stent placement Hx laparoscopic cholecystectomy Hx of aortic valve replacement History of open heart surgery Social History household members: spouse Smoking Status: Former smoker ROS ROS ED Constitutional Constitutional ED: Denies chills, fever(s) or subjective Eyes Eyes: Denies blurry vision or change in vision ENT ENT ED: Denies ear pain Cardiovascular Cardiovascular: Denies chest pain or palpitations Respiratory/Chest Respiratory/Chest: Denies cough, dyspnea or dyspnea on exertion Gastrointestinal Gastrointestinal: Reports vomiting and other Details: Patient denies vomiting states he did. May have coffee-ground material on his lips. ; Denies abdominal pain or nausea Genitourinary Genitourinary ED: Denies dysuria, hematuria or urinary frequency Musculoskeletal Musculoskeletal: Denies arthralgias or myalgias Integumentary Denies abscess Neurologic Neurologic: Reports paresthesias and weakness Hematologic/Lymphatic Hematologic/Lymphatic: Reports easy bruising EXAM Physical Exam Const Vital Signs: 02/06/25 15:10 02/06/25 15:14 02/06/25 15:19 Temperature 97.9 F Temperature Source Oral Pulse Rate 68 68 Respiratory Rate 22 H 17 Respiratory Effort Normal Non-Labored Respiratory Pattern Normal Blood Pressure 153/75 H 186/54 H Blood Pressure Mean 101 98 Pulse Ox 96 97 Oxygen Delivery Method Room Air Room Air 02/06/25 15:19 02/06/25 15:30 02/06/25 15:49 Temperature Temperature Source Pulse Rate 73 63 Respiratory Rate 21 H Respiratory Effort Respiratory Pattern Blood Pressure 186/54 H 180/82 H Blood Pressure Mean 98 114 Pulse Ox 98 98 Oxygen Delivery Method Room Air Room Air Room Air 02/06/25 16:19 Temperature Temperature Source Pulse Rate 68 Respiratory Rate Respiratory Effort Respiratory Pattern Blood Pressure 161/77 H Blood Pressure Mean 105 Pulse Ox 98 Oxygen Delivery Method Positive well nourished and well developed Constitutional Narrative: Patient is not alert. His BMI is 32.6. General Appearance ED: well developed; Negative for pallor HEENT Reports dry mucous membranes HEENT Narrative: Head is atraumatic normocephalic. Ears normal. Nares patent. Negative for trauma or tenderness Mouth ED: Yes dry mucous membranes Mouth: dry mucous membranes Eyes PERRL and EOMs intact bilaterally General Eye ED: Negative for pale conjunctiva or scleral icterus Neck no lymphadenopathy, supple and no JVD Chest Wall inspection of chest normal and palpation of chest normal Resp normal respiratory effort and clear to auscultation bilaterally Cardio regular rate and regular rhythm Rate: other Other Details: There is a click associated with his metallic aortic valve noted. GI normal to inspection, nondistended, normoactive bowel sounds, non-tender, non- distended and no masses; Negative for hepatosplenomegaly Back/Spine no CVA tenderness Extremity Negative for normal to inspection General Extremety ED: Yes edema General Extremity: edema Neuro No oriented x3, No CN's II-XII intact bilaterally and no sensory deficits noted Sensorium / Orientation: Negative for alert Psych Mood & Affect: depressed Skin no rashes or lesions noted and no wounds General Skin Exam: Negative for jaundice or pallor MDM MDM MDM Narrative Medical decision making narrative: Patient has symptoms consistent with stroke like presentation. Suspect that is the reason for his weakness, fatigue. Also concern he may be a GI bleed. Will use stroke documentation for NIH score. NIH stroke scale: 1A. 1 1B. 1 1C. 0 2 . 0 3. 0 4. 1 5. 1 5b. 0 6A. 2 6B. 0 7. Unknown 8. 0 9. 0 10. 0 11. 0 NIH 6 History & Record Review Additional record(s) reviewed:: Prior inpatient record (Admission January 07, 2025 for frequent falls flank pain and bruising. Patient had vegetation noted on his aortic valve. And patient is on anticoagulant.) Lab Data Labs: Laboratory Results - last 24 hr 02/06/25 02/06/25 15:26 15:37 WBC 5.5 RBC 4.49 L Hgb 13.1 Hct 40.1 MCV 89.3 MCH 29.2 MCHC 32.7 RDW Std Deviation 54.2 H RDW Coeff of Clement 16.6 H Plt Count 244 MPV 10.7 Immature Gran % (Auto) 0.200 Neut % (Auto) 72.8 H Lymph % (Auto) 12.6 L [place] % (Auto) 9.3 Eos % (Auto) 4.6 Baso % (Auto) 0.5 Absolute Neuts (auto) 4.0 Absolute Lymphs (auto) 0.69 L Nucleated RBC % 0 Sodium 138 Potassium 4.0 Chloride 104 Carbon Dioxide 24.6 Anion Gap 9 BUN 6 Creatinine 0.78 Estim Creat Clear Calc 90.02 Est GFR (MDRD) Non-Af 91 BUN/Creatinine Ratio 8.1 L Glucose 94 Calcium 8.7 Troponin T High Sens 48 H D POC Glucose 82 Radiography Diagnostic Testing: Clinical Impression(s) from Imaging Studies Brain CT 02/06/25 15:19 IMPRESSION: No acute intracranial abnormality. Chronic and ancillary findings as above. Reading Location: [id number] Management Discussion w/another healthcare provider: Hospitalist (Spoke with Dr. Jayesh Patel. Assigned to PCU for stroke workup), Neuro Ophthalmologist (Spoke with Dr. Humphrey kellogg the [facility] stroke neurologist. Patient is outside the window for any type of intervention. He probably had a stroke and his symptoms are worse from prior stroke. Recommended admission for stroke workup. Hospitalist was paged) and Radiologist (Radiologist informed me of results. There is no acute abnormality noted. He has had a prior stroke.) Discharge Plan Dx/Rx/DC Orders Clinical Impression: Acute cerebrovascular accident (CVA), Chronic anticoagulation, Hx of aortic valve replacement, mechanical, CAD (coronary artery disease), Hypertension, Obesity (BMI 30.0-34.9) Disposition Disposition: Acute Care Hospital [facility]
[2025-02-06 15:46] LABS: Hematocrit 40.1 % (40-54); Hemoglobin 13.1 g/dL (13.0-16.5); Immature Granulocytes Count 0.010 X10^3/uL (0.0-0.0); Mean Corp Hgb Conc 32.7 g/dL (32-36); Mean Corpuscular Volume 89.3 fL (80-94); Mean Platelet Vol. 10.7 fl (6.2-12.0); NRBC Flagged by Analyzer 0 % (0-5); Platelet Count 244 K/mm3 (150-450); RBC Distribution Width CV 16.6 % (11.6-14.6); RBC Distribution Width SD 54.2 fl (35.1-43.9); Red Blood Count 4.49 M/mm3 (4.6-6.2); White Blood Count 5.5 K/mm3 (4.4-11.0)
--- NOTE | 2025-02-06 16:08 | PCA ---
THIS SHIPPING [facility] CL[facility]MISS[facility] BED. WE ARE GOING TO PROCEED WITH ADMISSION HERE AT [facility]. [facility] REQUEST[facility] MED WORKUP BE SENT VIA FAX: [phone]
[2025-02-06 16:10] LABS: Troponin T High Sensitivity 48 ng/L (<=22)
[2025-02-06 16:11] LABS: Anion Gap 9 (5-15); BUN 6 mg/dL (4-19); BUN/Creat Ratio 8.1 RATIO (10-20); Calcium,Total 8.7 mg/dL (7.6-11.0); Carbon Dioxide 24.6 mmol/L (21.0-32.0); Chloride 104 mmol/L (98-108); Estimated Creatinine Clearance 90.02 ml/min (50-250); Glucose 94 mg/dL (70-99); Potassium 4.0 mmol/L (3.3-5.1)
--- NOTE | 2025-02-06 16:15 | PCM.HP.STD ---
HPI - General General Date of Admission: 02/06/25 Date of Service: 02/06/25 Chief Complaint: Strokelike symptoms HPI Narrative EDDIE KHALIL, is a 79 M who presented to [facility] ED on 02/06/2025 with strokelike symptoms. Medical history significant for mechanical aortic valve replacement in 2001 on warfarin, chronic A-fib, chronic HFpEF, history of CAD with stenting, hypertension and hyperlipidemia. [facility] records reviewed. Patient had a planned visit to [facility] for prosthetic aortic valve evaluation due to concern for valve failure. 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 Left heart cath was done with successful HD IVUS guided PCI to the proximal LAD with drug-eluting stent placement x 1. Patient was apparently stable in PACU and was okay for discharge home. However, when his came to pick him up, he had fairly acute onset right-sided weakness and fell onto his right side on the car, and it took multiple family members to get him into the car. noted that his blood pressure was elevated to the 200s systolic at home last night. He had continued right lower extremity weakness and balance issues this morning so they came to our ED this afternoon for further evaluation. In the ED he was hypertensive to the 180s systolic, was otherwise in normal sinus rhythm and stable on room air at rest. CBC and BMP unremarkable. INR subtherapeutic at 1.5. CT brain and CTA head/neck unremarkable. He was evaluated by teleneurology with NIH score of 7 concerning for acute CVA. Hospitalist was then contacted for admission. I saw the patient at bedside in the ED, and other family member was present. Patient was laying back fairly comfortably in bed and in no acute distress. He was attempting to answer my questions appropriately but had slurred speech with multiple answers. He had significant right lower extremity weakness noted on exam as well. Will be admitted for further management. [facility] Medical History (Updated 02/06/25 @ 23:[address] Jaya Patel DO) CML (chronic myelocytic leukemia) Acute UTI Weakness Wears hearing aid Thyroid disease High cholesterol Excessive bleeding Back pain Migraine headache Stroke/cerebrovascular accident History of IBS Gastric reflux Former smoker Sleep apnea Shortness of breath on exertion Leg cramps History of pain when walking History of edema History of echocardiogram History of stress test Cardiology follow-up encounter FH: bilateral hip replacements Home Medications ?Medication ?Instructions ?Recorded ?Last Taken ?Type warfarin 4 mg tablet (Jantoven) 4 mg PO DAILY blood thinner 04/03/16 01/08/23 History allopurinol 100 mg tablet 100 mg PO DAILYCM gout 04/04/16 12/18/24 History atorvastatin 40 mg tablet 80 mg PO DAILY cholesterol 04/04/16 12/18/24 History ferrous sulfate 325 mg (65 mg 325 mg PO DAILY supplement 04/04/16 12/18/24 History iron) tablet isosorbide mononitrate 30 mg 30 mg PO DAILY chest pain 04/04/16 12/18/24 History tablet,extended release 24 hr levothyroxine 25 mcg tablet 50 mcg PO DAILY thyroid 04/04/16 12/18/24 History metoprolol tartrate 25 mg tablet 25 mg PO DAILY blood pressure 04/04/16 12/18/24 History pantoprazole 40 mg tablet,delayed 40 mg PO BID reflux 04/04/16 12/18/24 History release gabapentin 300 mg capsule 300 mg PO DAILY nerve pain 01/10/20 12/18/24 History tamsulosin 0.4 mg capsule 0.4 mg PO DAILY prostate 07/09/22 12/18/24 History furosemide 40 mg tablet 40 mg PO BIDLX #60 tabs 12/21/24 Unknown Rx potassium chloride 20 mEq 20 meq PO DAILY #30 tabs 12/21/24 Unknown Rx tablet,extended release (K-Tab) aspirin 81 mg tablet,delayed 81 mg PO DAILY 02/06/25 Unknown History release (Adult Aspirin Regimen) clopidogrel 75 mg tablet (Plavix) 75 mg PO DAILY 02/06/25 Unknown History lisinopril 10 mg tablet 10 mg PO DAILY 02/06/25 Unknown History Allergy/AdvReac Type Severity Reaction Status Date / Time hydrocodone bitartrate (From Allergy Other Verified 02/06/25 15:13 Vicodin) Family History no significant family his Surgical History (Updated 02/06/25 @ 15:[address] Thaddeus Ruiz MD) History of total right hip replacement History of total left hip replacement History of heart surgery History of cardiac catheterization History of coronary artery stent placement Hx laparoscopic cholecystectomy Hx of aortic valve replacement History of open heart surgery Social History household members: spouse Smoking Status: Former smoker ROS Constitutional Constitutional: Reports fatigue and weakness; Denies chills or fever(s) Cardiovascular Cardiovascular: Denies chest pain Respiratory/Chest Respiratory/Chest: Denies shortness of breath at rest Gastrointestinal Gastrointestinal: Denies abdominal pain Musculoskeletal Musculoskeletal: Denies arthralgias or myalgias Neurologic Neurologic: Reports abnormal gait, abnormal speech and focal weakness; Denies dizziness, headache(s), numbness or tingling Vital Signs Vital Signs Vital Signs: 02/06/25 15:10 02/06/25 15:14 02/06/25 15:19 Temperature 97.9 F Temperature Source Oral Pulse Rate 68 68 Respiratory Rate 22 H 17 Respiratory Effort Normal Non-Labored Respiratory Pattern Normal Blood Pressure 153/75 H 186/54 H Blood Pressure Mean 101 98 Pulse Ox 96 97 Oxygen Delivery Method Room Air Room Air 02/06/25 15:19 02/06/25 15:30 02/06/25 15:49 Temperature Temperature Source Pulse Rate 73 63 Respiratory Rate 21 H Respiratory Effort Respiratory Pattern Blood Pressure 186/54 H 180/82 H Blood Pressure Mean 98 114 Pulse Ox 98 98 Oxygen Delivery Method Room Air Room Air Room Air Weight Weight: 103 kg Body Mass Index (BMI) 32.5 Physical Exam Const alert, oriented x3 and no apparent distress Constitutional Narrative: Elderly male, class I obesity, mildly fatigued appearing, attempting to answer questions appropriately but dysarthria noted, otherwise laying back comfortably in bed and in no acute distress. General Appearance: cooperative and comfortable HEENT normocephalic, head/scalp atraumatic, hearing grossly normal bilaterally, nasal mucous membranes and turbinates normal and moist oral mucous membranes Eyes PERRL, EOMs intact bilaterally and conjunctivae normal Neck full ROM Chest inspection of chest normal Resp normal respiratory effort, normal air movement, no use of accessory muscles and clear to auscultation bilaterally Cardio regular rate, regular rhythm, no murmurs and peripheral pulses 2+ throughout GI normal to inspection, nondistended, normoactive bowel sounds, soft to palpation, non-tender and non-distended Back/Spine normal ROM Extremity normal to inspection and no pedal edema Skin no rashes or lesions noted Neuro Neuro Narrative: Significant right lower extremity weakness noted. Dysarthria noted. Results Lab / Micro Data 02/06/25 15:26 02/06/25 15:26 Labs: Laboratory Results - last 24 hr 02/06/25 15:26: WBC 5.5, RBC 4.49 L, Hgb 13.1, Hct 40.1, MCV 89.3, MCH 29.2, MCHC 32.7, RDW Std Deviation 54.2 H, RDW Coeff of Clement 16.6 H, Plt Count 244, MPV 10.7, Immature Gran % (Auto) 0.200, Neut % (Auto) 72.8 H, Lymph % (Auto) 12.6 L, [place] % (Auto) 9.3, Eos % (Auto) 4.6, Baso % (Auto) 0.5, Absolute Neuts (auto) 4.0, Absolute Lymphs (auto) 0.69 L, Nucleated RBC % 0, Sodium 138, Potassium 4.0, Chloride 104, Carbon Dioxide 24.6, Anion Gap 9, BUN 6, Creatinine 0.78, Estim Creat Clear Calc 90.02, Est GFR (MDRD) Non-Af 91, BUN/Creatinine Ratio 8.1 L, Glucose 94, Calcium 8.7, Troponin T High Sens 48 H D 02/06/25 15:37: POC Glucose 82 Imaging Radiology Impression Brain CT 02/06/25 15:19 IMPRESSION: No acute intracranial abnormality. Chronic and ancillary findings as above. Reading Location: [id number] Assessment & Plan Assessment/Plan (1) Stroke-like symptoms: PLAN: Plan Patient is a 79-year-old male who presented to [facility] ED on 02/06/2025 with strokelike symptoms. 1. Strokelike symptoms ? Admit under observation status to PCU. Neurology consulted. See HPI for further details. In short, had reported acute onset right lower extremity weakness with difficulty with ambulation and slurred speech noted shortly after EDGAR and left heart cath at [facility] on 02/05. Procedures performed as an outpatient and his symptoms began as he was leaving the hospital, but he and family decided to return home. Symptoms are concerning for an acute CVA. Notably EDGAR showed apparent paravalvular regurgitation but did not show valvular echodensity, and no thrombus was noted in the LV. However, cannot rule out embolic especially considering subtherapeutic INR as below. NIH score of 7 in the ED for right lower extremity weakness and dysarthria. CT brain and CTA head/neck unremarkable. Orders placed per stroke protocol order set. MRI brain ordered. PT/OT/case management consulted. Will continue home Coumadin and Plavix for now. Notably was on triple therapy and it is unclear if this was intentional given his recent stenting, will need to determine this prior to discharge. Appreciate further neurology recommendations. 2. History of mechanical aortic valve with subtherapeutic INR, history of CAD with recent stenting, chronic HFpEF, hypertension, hyperlipidemia ? See HPI for further details. INR 1.5 on admit. Had left heart cath on 02/05 with KWAME x 1 to the proximal LAD. EDGAR showed EF 55% and patient with no volume overload on exam concerning for heart failure. Holding home antihypertensives for permissive hypertension. Will give 1 dose of therapeutic Lovenox this evening for subtherapeutic INR, follow-up a.m. INR level. Continue home atorvastatin. 3. Elevated troponins ? Troponin trend 48 > 42 > 43. EKG on admit with normal sinus rhythm, no acute ST changes. Recent left heart cath on 02/05 as above. No further cardiac workup needed at this time. Chronic medical conditions: ? Class I obesity: BMI 31 on admit. Complicates hospital course and care. ? GERD: Continue home PPI. ? Hypothyroidism: Continue home Synthroid. ? BPH with obstructive symptoms: Continue home Flomax. ? Neuropathy: Continue home gabapentin. ? History of gout: Continue home allopurinol. DVT prophylaxis: Not indicated, on warfarin CODE STATUS: Full code, verified Expected disposition: TBD Total clinical time spent by myself addressing the patient's medical issues, reviewing all the data, and collaborating with patient's care team: 82 minutes. Charges/Coding Visit Charges Inpatient E&M: 19842 Init Hosp L3
--- NOTE | 2025-02-06 16:24 | MRI_ITS ---
PROCEDURE: MRI BRAIN WITHOUT CONTRAST 02/06/2025 REASON FOR EXAM: CVA RULE OUT TECHNIQUE: Procedure Code: MRIBR Modality: MR Procedure: BRAIN WITHOUT CONTRAST Multiplanar and multisequential MRI of the brain was performed without contrast. COMPARISON: CT head/angiography earlier same day 02/06/2025. FINDINGS: Small area of acute infarct in the anterior left yancy. Few additional scattered punctate foci of restricted diffusion compatible with acute infarcts in the posterior left frontal guallpa radiata, and bilateral occipital lobe white matter. Chronic encephalomalacia/gliosis in the left frontal opercular region and involving portions of the left basal ganglia including the caudate and putamen, from remote infarct. Mild-moderate chronic microangiopathic changes elsewhere in the supratentorial white matter. No evidence of acute intracranial hemorrhage, extra-axial collection, mass- effect or hydrocephalus. Major vascular flow voids appear preserved. Mild generalized parenchymal volume loss. Absent stillaguamish ocular lenses. Well-aerated paranasal sinuses and bilateral mastoid air cells. MRI/Brain without Contrast IMPRESSION: Scattered small foci of acute infarct in the left yancy, posterior left frontal guallpa radiata and bilateral occipital lobe white matter. No mass-effect or intracranial hemorrhage. Chronic infarct with encephalomalacia and gliosis involving the left frontal op ercular region and left basal ganglia. Mild-moderate chronic microangiopathic changes elsewhere. Reading Location: [id number]
[2025-02-06 17:51] LABS: Prothrombin Time (Protime)PT. 17.9 SECONDS (11.7-14.9)
[2025-02-06 17:52] LABS: Partial Thromboplast Time 37.7 Seconds (24.1-36.2)
[2025-02-06 18:38] LABS: Troponin T High Sens 2 HR 42 ng/L (<=22)
--- NOTE | 2025-02-06 18:51 | CM.ED ---
Social Work Reason for visit: Stroke alert SW met with and DIL while patient was out of room. DIL expressed frustration regarding discharge from previous hospital as she feels he was disharged too early. Emotional support provided. No further needs at this time. Roberta Pizarro, OCCUPANCY SPECIALIST, [employer]
[2025-02-06 22:00] LABS: Troponin T High Sens 4 HR 43 ng/L (<=22)
--- NOTE | 2025-02-06 22:44 | PCM.HOSP.N ---
Hospitalist Note Pt reports R flank/lower back pain, acetaminophen minimally effective. Orders placed for topical Blue Gel to pain areas and metaxalone 400mg PO TID PRN muscle spasm, lower dosing for BEERS consideration and neurological assessments (NIH), avoiding opioids at this time.
[2025-02-06] MEDS: MENTHOL 226.8 GM JAR 1 APPLIC TOPICAL (22:54)
[2025-02-07] VITALS (8 sets, daily range): BP systolic 146–186; BP diastolic 56–90; PULSE 65–88; RESP 16–18; TEMP 35.4–37; O2SAT 94–97; BMI 31.8
[2025-02-07 06:05] LABS: Hematocrit 39.4 % (40-54); Hemoglobin 12.7 g/dL (13.0-16.5); Mean Corp Hgb Conc 32.2 g/dL (32-36); Mean Corpuscular Volume 89.7 fL (80-94); Mean Platelet Vol. 9.9 fl (6.2-12.0); Platelet Count 225 K/mm3 (150-450); RBC Distribution Width CV 16.5 % (11.6-14.6); RBC Distribution Width SD 54.1 fl (35.1-43.9); Red Blood Count 4.39 M/mm3 (4.6-6.2); White Blood Count 4.9 K/mm3 (4.4-11.0)
[2025-02-07 06:34] LABS: Anion Gap 10 (5-15); BUN 6 mg/dL (4-19); BUN/Creat Ratio 8.0 RATIO (10-20); Calcium,Total 8.8 mg/dL (7.6-11.0); Carbon Dioxide 23.2 mmol/L (21.0-32.0); Chloride 102 mmol/L (98-108); Cholesterol 93 mg/dL (<=200); Estimated Creatinine Clearance 88.96 ml/min (50-250); Glucose 91 mg/dL (70-99); Low Density Lipoprotein Calc. 48 mg/dL; Potassium 3.9 mmol/L (3.3-5.1); Triglycerides 98 mg/dL; Very Low Density Lipoprotein 20 mg/dL (5-40); cholesterol:hdl ratio screen 3.59
--- NOTE | 2025-02-07 10:06 | PN.HOSP_ITS ---
Reason for Visit Chief Complaint: Strokelike symptoms Objective Data Objective Data Vital Signs: Vital Signs Temp Pulse Resp BP Pulse Ox O2 Del Method 97.8 F 79 18 146/90 H 97 Room Air 02/07/25 09:06 02/07/25 09:06 02/07/25 09:06 02/07/25 09:06 02/07/25 09:06 02/07/25 09:06 Oxygen Delivery Method Room Air Weight: 221 lb 9.033 oz Body Mass Index (BMI) 31.8 Intake & Output: Intake and Output for Last 24 Hours 02/05/25 02/06/25 02/07/25 23:59 23:59 23:59 Output Total 100 / 100 Balance -100 / -100 Lab / Micro Data 02/07/25 05:44 02/07/25 05:44 Labs: Laboratory Results - last 24 hr 02/06/25 15:26: WBC 5.5, RBC 4.49 L, Hgb 13.1, Hct 40.1, MCV 89.3, MCH 29.2, MCHC 32.7, RDW Std Deviation 54.2 H, RDW Coeff of Clement 16.6 H, Plt Count 244, MPV 10.7, Immature Gran % (Auto) 0.200, Neut % (Auto) 72.8 H, Lymph % (Auto) 12.6 L, [place] % (Auto) 9.3, Eos % (Auto) 4.6, Baso % (Auto) 0.5, Absolute Neuts (auto) 4.0, Absolute Lymphs (auto) 0.69 L, Nucleated RBC % 0, PT 17.9 H, INR 1.5, APTT 37.7 H, Sodium 138, Potassium 4.0, Chloride 104, Carbon Dioxide 24.6, Anion Gap 9, BUN 6, Creatinine 0.78, Estim Creat Clear Calc 90.02, Est GFR (MDRD) Non-Af 91, BUN/Creatinine Ratio 8.1 L, Glucose 94, Calcium 8.7, Troponin T High Sens 48 H D 02/06/25 15:37: POC Glucose 82 02/06/25 18:06: Troponin T Hi Sens 2 Hr 42 H 02/06/25 20:50: Troponin T Hi Sens 4Hr 43 H 02/07/25 05:44: WBC 4.9, RBC 4.39 L, Hgb 12.7 L, Hct 39.4 L, MCV 89.7, MCH 28.9, MCHC 32.2, RDW Std Deviation 54.1 H, RDW Coeff of Clement 16.5 H, Plt Count 225, MPV 9.9, Sodium 135, Potassium 3.9, Chloride 102, Carbon Dioxide 23.2, Anion Gap 10, BUN 6, Creatinine 0.69 L, Estim Creat Clear Calc 88.96, Est GFR (MDRD) Non-Af 94, BUN/Creatinine Ratio 8.0 L, Glucose 91, Calcium 8.8, Triglycerides 98, Cholesterol 93, LDL Cholesterol, Calc 48, VLDL Cholesterol 20, HDL Cholesterol 26 L, Cholesterol/HDL Ratio 3.59 Radiography Diagnostic Testing: Radiology Impression Brain CT 02/06/25 15:19 IMPRESSION: No acute intracranial abnormality. Chronic and ancillary findings as above. Reading Location: [address] Head/Neck CTA 02/06/25 15:19 IMPRESSION: No acute arterial abnormality of the head or neck. Atherosclerosis as above. Bilateral pleural effusions. Multinodular goiter. Reading Location: [address] Brain MRI 02/06/25 16:24 IMPRESSION: Scattered small foci of acute infarct in the left yancy, posterior left frontal guallpa radiata and bilateral occipital lobe white matter. No mass-effect or intracranial hemorrhage. Chronic infarct with encephalomalacia and gliosis involving the left frontal opercular region and left basal ganglia. Mild-moderate chronic microangiopathic changes elsewhere. Reading Location: [facility] Assessment & Plan Assessment/Plan (1) Stroke-like symptoms: PLAN: Plan Patient is a 79-year-old male who presented to [facility] ED on 02/06/2025 with strokelike symptoms. The patient was trying to getting him out of the car and then he fell down. Denies LOC patient very weak, acute onset of right lower extremity weakness, difficulty ambulation and slurred speech after EDGAR and left heart cath at [facility] on 02/05. 1. Strokelike symptoms ? Admit under observation status to PCU. Neurology consulted. See HPI for further details. Procedures performed as an outpatient and his symptoms began as he was leaving the hospital, but he and family decided to return home. Symptoms are concerning for an acute CVA. Notably EDGAR showed apparent paravalvular regurgitation but did not show valvular echodensity, and no thrombus was noted in the LV. However, cannot rule out embolic especially considering subtherapeutic INR as below. NIH score of 7 in the ED for right lower extremity weakness and dysarthria. CT brain and CTA head/neck unremarkable. Orders placed per stroke protocol order set. MRI brain ordered. PT/OT/case management consulted. Will continue home Coumadin and Plavix for now. Notably was on triple therapy and it is unclear if this was intentional given his recent stenting, will need to determine this prior to discharge. Appreciate further neurology recommendations. Twelve-lead EKG A-fib 66 PubMed, QRS 86, QT 452 ms. LKW on February 05 at 1500 as documented by ED physician 2. History of mechanical aortic valve with subtherapeutic INR, history of CAD with recent stenting, chronic HFpEF, hypertension, hyperlipidemia ? See HPI for further details. INR 1.5 on admit. Had left heart cath on 02/05 with KWAME x 1 to the proximal LAD. EDGAR showed EF 55% and patient with no volume overload on exam concerning for heart failure. Holding home antihypertensives for permissive hypertension. Will give 1 dose of therapeutic Lovenox this evening for subtherapeutic INR, follow-up a.m. INR level. Continue home atorvastatin. 3. Elevated troponins ? Troponin trend 48 > 42 > 43. EKG on admit with normal sinus rhythm, no acute ST changes. Recent left heart cath on 02/05 as above. No further cardiac workup needed at this time. Chronic medical conditions: ? Class I obesity: BMI 31 on admit. Complicates hospital course and care. ? GERD: Continue home PPI. ? Hypothyroidism: Continue home Synthroid. ? BPH with obstructive symptoms: Continue home Flomax. ? Neuropathy: Continue home gabapentin. ? History of gout: Continue home allopurinol. DVT prophylaxis: Not indicated, on warfarin CODE STATUS: Full code, verified Expected disposition: TBD NIHSS NIHSS Nursing Documentation NIHSS Nursing Documentation: NIHSS: Ischemic Stroke/TIA Start: 02/06/25 17:03 Text: For PCU Patients: NIH and Neuro Check every 4 Status: Active hours, PRN and with change in RN caregiver. Freq: [id number] Protocol: Activity Type Activity Date Activity User E-sign Co-sign Detail Recorded Client Recorded Date Recorded By Document 02/07/25 07:15 DS [id number] 02/07/25 08:17 DS 02/07/25 07:15 NIH Stroke Scale [NIHSS] A score of 0 is normal or asymptomatic . Total possible score is 42. Inpatient: RN or Physician to activate a stroke alert for onset of new stroke symptoms or with NIHSS increase >/= 3 points. Following change in neurological status, NIHSS will be performed per physician order or more frequently PRN. -1a. Level of Consciousness 0 - Alert; keenly responsive -1b. LOC Questions 0 - Answers BOTH questions correctly -1c. LOC Commands 0 - Performs BOTH tasks correctly -2. Best Gaze 0 - Normal -3. Visual 0 - No visual loss -4. Facial Palsy 0 - Normal symmetrical movements -5a. Left Arm 0 - No drift; arm holds 90 ( or 45) degrees for full 10 seconds -5b. Right Arm 1 - Drift; arm drifts downward but doesn?t hit the bed -6a. Left Leg 0 - No drift; leg holds 30- degree position for full 5 seconds -6b. Right Leg 3 - No effort against gravity ; leg falls to bed immediately -7. Limb Ataxia 1 - Present in 1 limb -8. Sensory 0 - Normal; no sensory loss -9. Best Language 0 - No aphasia; normal -10. Dysarthria 1 = Mild-to- moderate dysarthria; -11. Extinction and Inattention 0 - No abnormality -Total 6 Query Text:A score of 0 is normal or asymptomatic. Total possible score is 42 . ED: Notify Physician for NIHSS increase by > / = 3 points. Inpatient: RN or Physician to activate a stroke alert for NIHSS increase of > / = 3 points. Coma Scale [Assess] -Eye Opening Spontaneous -Motor Obeys Commands -Verbal Oriented [Total] -Coma Scale Total 15
--- NOTE | 2025-02-07 10:19 | CASEMGMT ---
Social Work SW completed a PHQ9 with the patient and he scored a 3. Patient reported he lives with his and he has family in the area. Patient reported he has never been diagnosed with anxiety or depression. He reported he has a LW and POA. NADER Crain
--- NOTE | 2025-02-07 11:06 | PN.HOSP_ITS ---
Reason for Visit Chief Complaint: Strokelike symptoms Objective Data Objective Data Vital Signs: Vital Signs Temp Pulse Resp BP Pulse Ox O2 Del Method 97.7 F L 74 17 156/84 H 95 Room Air 02/07/25 10:49 02/07/25 10:49 02/07/25 10:49 02/07/25 10:49 02/07/25 10:49 02/07/25 10:49 Oxygen Delivery Method Room Air Weight: 221 lb 9.033 oz Body Mass Index (BMI) 31.8 Intake & Output: Intake and Output for Last 24 Hours 02/05/25 02/06/25 02/07/25 23:59 23:59 23:59 Intake Total 480 / 480 Output Total 100 / 100 1100 / 1100 Balance -100 / -100 -620 / -620 Lab / Micro Data 02/07/25 05:44 02/07/25 05:44 Labs: Laboratory Results - last 24 hr 02/06/25 15:26: WBC 5.5, RBC 4.49 L, Hgb 13.1, Hct 40.1, MCV 89.3, MCH 29.2, MCHC 32.7, RDW Std Deviation 54.2 H, RDW Coeff of Clement 16.6 H, Plt Count 244, MPV 10.7, Immature Gran % (Auto) 0.200, Neut % (Auto) 72.8 H, Lymph % (Auto) 12.6 L, [place] % (Auto) 9.3, Eos % (Auto) 4.6, Baso % (Auto) 0.5, Absolute Neuts (auto) 4.0, Absolute Lymphs (auto) 0.69 L, Nucleated RBC % 0, PT 17.9 H, INR 1.5, APTT 37.7 H, Sodium 138, Potassium 4.0, Chloride 104, Carbon Dioxide 24.6, Anion Gap 9, BUN 6, Creatinine 0.78, Estim Creat Clear Calc 90.02, Est GFR (MDRD) Non-Af 91, BUN/Creatinine Ratio 8.1 L, Glucose 94, Calcium 8.7, Troponin T High Sens 48 H D 02/06/25 15:37: POC Glucose 82 02/06/25 18:06: Troponin T Hi Sens 2 Hr 42 H 02/06/25 20:50: Troponin T Hi Sens 4Hr 43 H 02/07/25 05:44: WBC 4.9, RBC 4.39 L, Hgb 12.7 L, Hct 39.4 L, MCV 89.7, MCH 28.9, MCHC 32.2, RDW Std Deviation 54.1 H, RDW Coeff of Clement 16.5 H, Plt Count 225, MPV 9.9, Sodium 135, Potassium 3.9, Chloride 102, Carbon Dioxide 23.2, Anion Gap 10, BUN 6, Creatinine 0.69 L, Estim Creat Clear Calc 88.96, Est GFR (MDRD) Non-Af 94, BUN/Creatinine Ratio 8.0 L, Glucose 91, Calcium 8.8, Triglycerides 98, Cholesterol 93, LDL Cholesterol, Calc 48, VLDL Cholesterol 20, HDL Cholesterol 26 L, Cholesterol/HDL Ratio 3.59 Radiography Diagnostic Testing: Radiology Impression Brain CT 02/06/25 15:19 IMPRESSION: No acute intracranial abnormality. Chronic and ancillary findings as above. Reading Location: [address] Head/Neck CTA 02/06/25 15:19 IMPRESSION: No acute arterial abnormality of the head or neck. Atherosclerosis as above. Bilateral pleural effusions. Multinodular goiter. Reading Location: [address] Brain MRI 02/06/25 16:24 IMPRESSION: Scattered small foci of acute infarct in the left yancy, posterior left frontal guallpa radiata and bilateral occipital lobe white matter. No mass-effect or intracranial hemorrhage. Chronic infarct with encephalomalacia and gliosis involving the left frontal opercular region and left basal ganglia. Mild-moderate chronic microangiopathic changes elsewhere. Reading Location: [facility] Physical Exam Narrative Seen and examined Patient had EDGAR and cardiac cath in main campus. When needed he told me he felt his right side weak and fell on the side Denies any change in his language but patient sounds slower speech but no dysarthria. Patient stated his speech on baseline Physical exam General: Alert, Oriented x3, Cooperative HEENT: Atraumatic, PERRLA, EOMI, Normocephalic. Oral: No Gingival or Mucosal Lesions/ Ulcerations Neck: Supple, No JVD, Negative Carotid Bruits Chest wall/Lungs: Air entry diminished in bilateral lung bases. No crepitation/rhonchi Cardiovascular: Irregular rate and rhythm, A-fib. CABG scar. Prosthetic valve sound Abdomen: Bowel Sounds Present, Soft, Non Tender, Non-Distended : No dysuria. No renal angle tenderness. No suprapubic tenderness. Extremities: No edema, Capillary Refill Less than 3 Seconds Skin: No rashes, No breakdown Musculoskeletal: RLE weak at knee and hip, 3/5, RUE 4/5. Right fdir-la-bipw test positive, disequilibrium no Tenderness to Palpation of Joints or Extremities Neurological: GCS 15. NIH stroke scale documented 6, 3 for RLE, 1 for RUE, 1 for disequilibrium and 1 for dysarthria. Patient does not have dysarthria. Psych/Mental Status: Normal Affect, Appropriate. Assessment & Plan Assessment/Plan (1) Stroke-like symptoms: PLAN: Plan Patient is a 79-year-old male who presented to [facility] ED on 02/06/2025 with strokelike symptoms. The patient was trying to getting him out of the car and then he fell down. Denies LOC patient very weak, acute onset of right lower extremity weakness, difficulty ambulation and slurred speech after EDGAR and left heart cath at [facility] on 02/05. 1. Acute infarct multiple foci involving left yancy, posterior left frontal guallpa radiata and bilateral occipital lobe white matter suggestive of cardioembolic stroke, probably due to chronic of A-fib, mechanical prosthetic aortic valve and subtherapeutic INR with history of chronic infarct: ?Notably EDGAR showed apparent paravalvular regurgitation but did not show valvular echodensity, and no thrombus was noted in the LV. NIH score of 7 in the ED for right lower extremity weakness and CT brain and CTA head/neck unremarkable. Orders as per stroke protocol with BP and glucose monitoring, PT/OT/case management consulted. 02/07: MRI brain reported scattered small foci of acute infarct in left yancy, posterior left frontal guallpa radiata and bilateral occipital lobe white matter. No mass-effect or intracranial hemorrhage.Chronic infarct with encephalomalacia and gliosis involving the left frontal opercular region and left basal ganglia. NIH stroke scale reported by nursing staff 6 but 5 for me. Patient had EDGAR including clinic as an outpatient on day of admission. Prior TTE here does not show evidence of PFO or ASD. TTE EF 60%, left atrium moderately enlarged but no RWMA. Stable appearing mechanical aortic valve apparatus with mean AV gradient 22 mmHg. Patient was evaluated by neurologist and advised warfarin to keep INR more than 2.5/2.5-3.5. Patient on Lovenox 1 mg/kg body weight bridging with warfarin, dose is increased to 6 mg today. Monitor CBC and PT/INR daily. Patient also on Plavix because he had cardiac stent yesterday. Twelve-lead EKG A-fib 66 PubMed, QRS 86, QT 452 ms. LKW on February 05 at 1500 as documented by ED physician. Fascial profile shows LDL 48, HDL 26. Glucose 91. TSH 2.54 on 01/07/2025. A1c ordered for tomorrow a.m. 2. History of mechanical aortic valve with subtherapeutic INR, history of CAD with recent stenting, chronic HFpEF, hypertension, hyperlipidemia ? See HPI for further details. INR 1.5 on admit. Had left heart cath on 02/05 with KWAME x 1 to the proximal LAD. EDGAR showed EF 55% and patient with no volume overload on exam concerning for heart failure. Holding home antihypertensives for permissive hypertension. Will give 1 dose of therapeutic Lovenox this evening for subtherapeutic INR, follow-up a.m. INR level. Continue home atorvastatin. 02/07: Echo report as mentioned above. INR subtherapeutic 3. Elevated troponins ? Troponin trend 48 > 42 > 43. EKG on admit with normal sinus rhythm, no acute ST changes. Recent left heart cath on 02/05 as above. No further cardiac workup needed at this time. : Elevated troponins decreasing trend. No chest pain. Had recent cardiac cath with stenting as mentioned above Chronic medical conditions: ? Class I obesity: BMI 31 on admit. Complicates hospital course and care. ? GERD: Continue home PPI. ? Hypothyroidism: Continue home Synthroid. ? BPH with obstructive symptoms: Continue home Flomax. ? Neuropathy: Continue home gabapentin. ? History of gout: Continue home allopurinol. DVT prophylaxis: Not indicated, on warfarin CODE STATUS: Full code, verified Expected disposition: TBD Laboratory Results 02/06/25 15:26: PT 17.9 H, INR 1.5, APTT 37.7 H 02/06/25 18:06: Troponin T Hi Sens 2 Hr 42 H 02/06/25 20:50: Troponin T Hi Sens 4Hr 43 H 02/07/25 05:44: WBC 4.9, RBC 4.39 L, Hgb 12.7 L, Hct 39.4 L, MCV 89.7, MCH 28.9, MCHC 32.2, RDW Std Deviation 54.1 H, RDW Coeff of Clement 16.5 H, Plt Count 225, MPV 9.9, Sodium 135, Potassium 3.9, Chloride 102, Carbon Dioxide 23.2, Anion Gap 10, BUN 6, Creatinine 0.69 L, Estim Creat Clear Calc 88.96, Est GFR (MDRD) Non-Af 94, BUN/Creatinine Ratio 8.0 L, Glucose 91, Calcium 8.8, Triglycerides 98, Cholesterol 93, LDL Cholesterol, Calc 48, VLDL Cholesterol 20, HDL Cholesterol 26 L, Cholesterol/HDL Ratio 3.59 Clinical Impression(s) from Imaging Studies Brain CT 02/06/25 15:19 IMPRESSION: No acute intracranial abnormality. Chronic and ancillary findings as above. Head/Neck CTA 02/06/25 15:19 IMPRESSION: No acute arterial abnormality of the head or neck. Atherosclerosis as above. Bilateral pleural effusions. Multinodular goiter. Brain MRI 02/06/25 16:24 IMPRESSION: Scattered small foci of acute infarct in the left yancy, posterior left frontal guallpa radiata and bilateral occipital lobe white matter. No mass-effect or intracranial hemorrhage. Chronic infarct with encephalomalacia and gliosis involving the left frontal opercular region and left basal ganglia. Mild-moderate chronic microangiopathic changes elsewhere. Reading Location: [id number] Charges/Coding Visit Charges Inpatient E&M: 39876 Subs Hosp L2 NIHSS NIHSS Nursing Documentation NIHSS Nursing Documentation: NIHSS: Ischemic Stroke/TIA Start: 02/06/25 17:03 Text: For PCU Patients: NIH and Neuro Check every 4 Status: Active hours, PRN and with change in RN caregiver. Freq: [id number] Protocol: Activity Type Activity Date Activity User E-sign Co-sign Detail Recorded Client Recorded Date Recorded By Document 02/07/25:47 DS [id number] 02/07/25 10:48 DS 02/07/25 10:47 NIH Stroke Scale [NIHSS] A score of 0 is normal or asymptomatic . Total possible score is 42. Inpatient: RN or Physician to activate a stroke alert for onset of new stroke symptoms or with NIHSS increase >/= 3 points. Following change in neurological status, NIHSS will be performed per physician order or more frequently PRN. -1a. Level of Consciousness 0 - Alert; keenly responsive -1b. LOC Questions 0 - Answers BOTH questions correctly -1c. LOC Commands 0 - Performs BOTH tasks correctly -2. Best Gaze 0 - Normal -3. Visual 0 - No visual loss -4. Facial Palsy 0 - Normal symmetrical movements -5a. Left Arm 0 - No drift; arm holds 90 ( or 45) degrees for full 10 seconds -5b. Right Arm 1 - Drift; arm drifts downward but doesn?t hit the bed -6a. Left Leg 0 - No drift; leg holds 30- degree position for full 5 seconds -6b. Right Leg 3 - No effort against gravity ; leg falls to bed immediately -7. Limb Ataxia 1 - Present in 1 limb -8. Sensory 0 - Normal; no sensory loss -9. Best Language 0 - No aphasia; normal -10. Dysarthria 1 = Mild-to- moderate dysarthria; -11. Extinction and Inattention 0 - No abnormality -Total 6 Query Text:A score of 0 is normal or asymptomatic. Total possible score is 42 . ED: Notify Physician for NIHSS increase by > / = 3 points. Inpatient: RN or Physician to activate a stroke alert for NIHSS increase of > / = 3 points. Coma Scale [Assess] -Eye Opening Spontaneous -Motor Obeys Commands -Verbal Oriented [Total] -Coma Scale Total 15
--- NOTE | 2025-02-07 12:06 | PN.NEURO_ITS ---
Objective Data Objective Data Vital Signs: Vital Signs Temp Pulse Resp BP Pulse Ox O2 Del Method 97.7 F L 74 17 156/84 H 95 Room Air 02/07/25 10:49 02/07/25 10:49 02/07/25 10:49 02/07/25 10:49 02/07/25 10:49 02/07/25 10:49 Oxygen Delivery Method Room Air Weight: 100.5 kg Body Mass Index (BMI) 31.8 Intake & Output: Intake and Output for Last 24 Hours 02/05/25 02/06/25 02/07/25 23:59 23:59 23:59 Intake Total 480 / 480 Output Total 100 / 100 1100 / 1100 Balance -100 / -100 -620 / -620 Lab / Micro Data 02/07/25 05:44 02/07/25 05:44 Labs: Laboratory Results - last 24 hr 02/06/25 15:26: WBC 5.5, RBC 4.49 L, Hgb 13.1, Hct 40.1, MCV 89.3, MCH 29.2, MCHC 32.7, RDW Std Deviation 54.2 H, RDW Coeff of Clement 16.6 H, Plt Count 244, MPV 10.7, Immature Gran % (Auto) 0.200, Neut % (Auto) 72.8 H, Lymph % (Auto) 12.6 L, [place] % (Auto) 9.3, Eos % (Auto) 4.6, Baso % (Auto) 0.5, Absolute Neuts (auto) 4.0, Absolute Lymphs (auto) 0.69 L, Nucleated RBC % 0, PT 17.9 H, INR 1.5, APTT 37.7 H, Sodium 138, Potassium 4.0, Chloride 104, Carbon Dioxide 24.6, Anion Gap 9, BUN 6, Creatinine 0.78, Estim Creat Clear Calc 90.02, Est GFR (MDRD) Non-Af 91, BUN/Creatinine Ratio 8.1 L, Glucose 94, Calcium 8.7, Troponin T High Sens 48 H D 02/06/25 15:37: POC Glucose 82 02/06/25 18:06: Troponin T Hi Sens 2 Hr 42 H 02/06/25 20:50: Troponin T Hi Sens 4Hr 43 H 02/07/25 05:44: WBC 4.9, RBC 4.39 L, Hgb 12.7 L, Hct 39.4 L, MCV 89.7, MCH 28.9, MCHC 32.2, RDW Std Deviation 54.1 H, RDW Coeff of Clement 16.5 H, Plt Count 225, MPV 9.9, Sodium 135, Potassium 3.9, Chloride 102, Carbon Dioxide 23.2, Anion Gap 10, BUN 6, Creatinine 0.69 L, Estim Creat Clear Calc 88.96, Est GFR (MDRD) Non-Af 94, BUN/Creatinine Ratio 8.0 L, Glucose 91, Calcium 8.8, Triglycerides 98, Cholesterol 93, LDL Cholesterol, Calc 48, VLDL Cholesterol 20, HDL Cholesterol 26 L, Cholesterol/HDL Ratio 3.59 Radiography Diagnostic Testing: Radiology Impression Brain CT 02/06/25 15:19 IMPRESSION: No acute intracranial abnormality. Chronic and ancillary findings as above. Reading Location: [address] Head/Neck CTA 02/06/25 15:19 IMPRESSION: No acute arterial abnormality of the head or neck. Atherosclerosis as above. Bilateral pleural effusions. Multinodular goiter. Reading Location: [address] Brain MRI 02/06/25 16:24 IMPRESSION: Scattered small foci of acute infarct in the left yancy, posterior left frontal guallpa radiata and bilateral occipital lobe white matter. No mass-effect or intracranial hemorrhage. Chronic infarct with encephalomalacia and gliosis involving the left frontal opercular region and left basal ganglia. Mild-moderate chronic microangiopathic changes elsewhere. Reading Location: [facility] Physical Exam Neuro Neuro Narrative: Neurological examination: General: The patient appears nutritionally appropriate, well-groomed, and appears comfortable in no acute distress. Mental Status: The patient?s mental status was alert, mild aphasia. Cranial nerves: Visual schulte full, and extra- ocular motion was intact. Mild right facial paresis. There was no dysarthria. Motor: Normal strength in left upper and lower extremities. No pronator drift on left. Right arm and leg weakness (mild, able to anti-gravity). Sensation: Intact light touch bilaterally, no extinction. Coordination: Bilateral finger to nose was normal. There was no dysmetria. Gait: deferred Subject: Neurology Subjective 156/84. Patient reports his right sided is still weaker than baseline. 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 He was discharged home 02/06/25 around 11a and he reports on discharge he was not normal, he had trouble getting into the car with his due to increased right sided weakness. When he arrived at home, he fell out of the car and could not walk. He presented to [facility]. CT brain showed old left MCA infarct. CTA head/neck negative. INR 1.9. He was admitted. MRI rbrain DWI shows small acute embolic infarcts bilaterally. FLAIR shows old left MCA branch infarct. LDL 48. Neurological examination shows right hemiparesis, NIHSS 5 (RF-1, RUE-1, RLE-2, aphs-1) ASSESSMENT/PLAN: Acute embolic ischemic stroke, post stroke day #3 1) Stroke work-up completed. Stroke mechanism is likely cardioembolism (mechanical valve, subtherapeutic) 2) Continue coumadin (goal INR >2.5 for mechanical valve). Continue plavix for recent cardiac stent 3) Recommend PT/OT consult and stroke bundle (swallow, education, etc) 4) Follow-up in outpatient neurology clinic. Will sign off, please call us with further stroke related questions. Aggie Benavidez MD Primary team messaged recs on backline. NIHSS NIHSS Nursing Documentation NIHSS Nursing Documentation: NIHSS: Ischemic Stroke/TIA Start: 02/06/25 17:03 Text: For PCU Patients: NIH and Neuro Check every 4 Status: Active hours, PRN and with change in RN caregiver. Freq: [id number] Protocol: Activity Type Activity Date Activity User E-sign Co-sign Detail Recorded Client Recorded Date Recorded By Document 02/07/25 10:47 DS [id number] 02/07/25 10:48 DS 02/07/25 10:47 NIH Stroke Scale [NIHSS] A score of 0 is normal or asymptomatic . Total possible score is 42. Inpatient: RN or Physician to activate a stroke alert for onset of new stroke symptoms or with NIHSS increase >/= 3 points. Following change in neurological status, NIHSS will be performed per physician order or more frequently PRN. -1a. Level of Consciousness 0 - Alert; keenly responsive -1b. LOC Questions 0 - Answers BOTH questions correctly -1c. LOC Commands 0 - Performs BOTH tasks correctly -2. Best Gaze 0 - Normal -3. Visual 0 - No visual loss -4. Facial Palsy 0 - Normal symmetrical movements -5a. Left Arm 0 - No drift; arm holds 90 ( or 45) degrees for full 10 seconds -5b. Right Arm 1 - Drift; arm drifts downward but doesn?t hit the bed -6a. Left Leg 0 - No drift; leg holds 30- degree position for full 5 seconds -6b. Right Leg 3 - No effort against gravity ; leg falls to bed immediately -7. Limb Ataxia 1 - Present in 1 limb -8. Sensory 0 - Normal; no sensory loss -9. Best Language 0 - No aphasia; normal -10. Dysarthria 1 = Mild-to- moderate dysarthria; -11. Extinction and Inattention 0 - No abnormality -Total 6 Query Text:A score of 0 is normal or asymptomatic. Total possible score is 42 . ED: Notify Physician for NIHSS increase by > / = 3 points. Inpatient: RN or Physician to activate a stroke alert for NIHSS increase of > / = 3 points. Coma Scale [Assess] -Eye Opening Spontaneous -Motor Obeys Commands -Verbal Oriented [Total] -Coma Scale Total 15 NIHSS 1a. Level of Consciousness: 0 - Alert; keenly responsive 1b. LOC Questions: 0 - Answers BOTH questions correctly 1c. LOC Commands: 0 - Performs BOTH tasks correctly 2. Best Gaze: 0 - Normal 3. Visual: 0 - No visual loss 4. Facial Palsy: 1 - Minor paralysis (flattened nasolabial fold, asymmetry on smiling) 5a. Left Arm: 0 - No drift; arm holds 90 (or 45) degrees for full 10 seconds 5b. Right Arm: 1 - Drift; arm drifts downward but doesn?t hit the bed 6a. Left Le - No drift; leg holds 30-degree position for full 5 seconds 6b. Right Le - Some effort against gravity; 7. Limb Ataxia: 0 - Absent 8. Sensory: 0 - Normal; no sensory loss 9. Best Language: 1 - [id number] aphasia; 10. Dysarthria: 0 - Normal 11. Extinction and Inattention: 0 - No abnormality Total: 5
--- NOTE | 2025-02-07 14:30 | CASEMGMT ---
Addendum entered by Ruth Wren 02/07/25 17:19: 1445: Pt and made aware [facility] unable to accept pt. A list of RU providers including quality and resource use data and consistent with the patient?s preferred geographic region, medical needs, and insurance network were provided from the [employer] Guide. They state they will review the list. Made aware to pick top 3 preferences. did state, if MCR A covers RU @ 100 %, then she would be willing for pt to go to a RU and be billed under MCR A, as she and pt do not want pt to go to [facility] for rehab. SHIRA Hernandez, made aware of all of the above & states will f/u. Original Note: RN?CM?ASSESSMENT ? RN?CM?to room to meet with patient for initial transition planning/care coordination?assessment.?RN?CM?introduced self and role at [facility].? Pt voices understanding and consents to?assessment?at this time.? Pt sitting up in chair in room in no distress at this time.? in room visiting. Care providers, pharmacy, and demographics verified/updated at this time. ? Strata:2 PCP: [facility] Specialists:[employer] Sales Executive & oncologist @ [place] Preferred Pharmacy: [facility] Insurance: VA, MCR A only Prescription Benefit:?VA LNOK: , Cyndi. Son, Addison Living Arrangements: Lives w/ in one-story home w/basement & 2 steps to enter. Pt does flight of stairs to the basement to his workshop and also to do laundry. Pt independent @ baseline prior to admission. Transportation:?Pt & both drive. DME: Pt does not use any DME. There is a shower chair, walker, and quad cane in the home that his uses. HHC/SNF: Hx [facility] and has had HHC in the past. ? Discussed discharge planning. Questions answered re: RU & SNF. Pt and would like pt to go to [facility] as 1st preference & decline wanting list of other RU's at this time unless [facility] unable to accept him. requesting the VA be billed for RU stay instead of MCR A. Referral sent to Cristine @ RU. They are not able to accept pt d/t they are full. Cristine also states they do not take any pt's under VA. ? PLAN:??RU ? Basil BSN?RN?CM ?
--- NOTE | 2025-02-07 15:25 | CASEMGMT ---
Social Work Patient and his was provided a list of rehab facilities?including quality and resource use data and consistent with the patient's preferred geographic region, medical needs, and insurance network was created in CarePort Guide.?The chose [facility] first and [address] [place] was full. SW sent referrals to both places. NADER Evans
[2025-02-07] MEDS: Warfarin (PBKC) 6 MG Tablet PO (17:10)
[2025-02-07] MEDS: MELATONIN 3 MG TABLET PO (21:07)
[2025-02-08] VITALS (7 sets, daily range): BP systolic 131–167; BP diastolic 64–76; PULSE 70–85; RESP 16–18; TEMP 36.1–37; O2SAT 95–97; BMI 31.8
--- NOTE | 2025-02-08 04:14 | NURSING ---
This RN received report from VASILIY Castanon at this time. Will take over care for this patient at this time.
[2025-02-08 06:25] LABS: Hematocrit 36.1 % (40-54); Hemoglobin 11.8 g/dL (13.0-16.5); Immature Granulocytes Count 0.030 X10^3/uL (0.0-0.0); Mean Corp Hgb Conc 32.7 g/dL (32-36); Mean Corpuscular Volume 88.0 fL (80-94); Mean Platelet Vol. 10.8 fl (6.2-12.0); NRBC Flagged by Analyzer 0 % (0-5); POSITIVE DIFFERENTIAL YES; Platelet Count 216 K/mm3 (150-450); RBC Distribution Width CV 16.2 % (11.6-14.6); RBC Distribution Width SD 52.7 fl (35.1-43.9); Red Blood Count 4.10 M/mm3 (4.6-6.2); White Blood Count 4.5 K/mm3 (4.4-11.0)
[2025-02-08 06:37] LABS: Prothrombin Time (Protime)PT. 17.0 SECONDS (11.7-14.9)
[2025-02-08 06:52] LABS: Anion Gap 10 (5-15); BUN 6 mg/dL (4-19); BUN/Creat Ratio 10.4 RATIO (10-20); Calcium,Total 8.3 mg/dL (7.6-11.0); Carbon Dioxide 23.3 mmol/L (21.0-32.0); Chloride 104 mmol/L (98-108); Estimated Creatinine Clearance 88.96 ml/min (50-250); Glucose 93 mg/dL (70-99); Potassium 3.7 mmol/L (3.3-5.1)
--- NOTE | 2025-02-08 10:03 | CASEMGMT ---
Social Work SW spoke with pt's Cyndi regarding discharge plan. SW educated about differences between RU and SNF. SW explained that [facility] RU is full and that referrals have been sent to RU at [facility] and [facility] per conversation with Cyndi yesterday. Cyndi inquiring about [facility] TCU. SW explained TCU and that VA declination for hospital payment will need to be signed to be eilgible for TCU under Medicare. denies need for list of SNF providers and is requesting placement for pt at [facility] TCU and is agreeable to sign VA Declination form. Referral made to Cristine in TCU. TCU is reviewing case and will notify SW if pt is able to be accepted. Pt's states that if TCU denies, next choice is [facility] RU and third choice is [facility]. Physician updated. SHIRA will continue to follow for dc planning. Plan: TCU, pending acceptance TAVON Hernandez
--- NOTE | 2025-02-08 11:46 | CASEMGMT ---
VASILIY CM into pt room, pt sitting up in chair with at bedside. Pt wishes to have MCR billed, pt request to sign VA declination. Form signed at this time. Faxed to [place].
--- NOTE | 2025-02-08 12:34 | PN.HOSP_ITS ---
Reason for Visit Chief Complaint: Strokelike symptoms Objective Data Objective Data Vital Signs: Vital Signs Temp Pulse Resp BP Pulse Ox O2 Del Method 98.0 F 85 18 167/64 H 95 Room Air 02/08/25 08:40 02/08/25 08:40 02/08/25 08:40 02/08/25 08:40 02/08/25 08:40 02/08/25 09:42 Oxygen Delivery Method Room Air Weight: 221 lb 9.033 oz Body Mass Index (BMI) 31.8 Intake & Output: Intake and Output for Last 24 Hours 02/06/25 02/07/25 02/08/25 23:59 23:59 23:59 Intake Total 980 / 1430 450 / 450 Output Total 100 / 100 1600 / 2550 1250 / 1250 Balance -100 / -100 -620 / -1120 -800 / -800 Lab / Micro Data 02/08/25 05:25 02/08/25 05:25 Labs: Laboratory Results - last 24 hr 02/08/25 05:25: WBC 4.5, RBC 4.10 L, Hgb 11.8 L, Hct 36.1 L, MCV 88.0, MCH 28.8, MCHC 32.7, RDW Std Deviation 52.7 H, RDW Coeff of Clement 16.2 H, Plt Count 216, MPV 10.8, Immature Gran % (Auto) 0.700, Neut % (Auto) 71.7 H, Lymph % (Auto) 13.0 L, [place] % (Auto) 8.1, Eos % (Auto) 6.1 H, Baso % (Auto) 0.4, Absolute Neuts (auto) 3.2, Absolute Lymphs (auto) 0.58 L, Nucleated RBC % 0, PT 17.0 H, INR 1.4, Sodium 137, Potassium 3.7, Chloride 104, Carbon Dioxide 23.3, Anion Gap 10, BUN 6, Creatinine 0.59 L, Estim Creat Clear Calc 88.96, Est GFR (MDRD) Non-Af 99, BUN/Creatinine Ratio 10.4, Glucose 93, Hemoglobin A1c 4.9, Calcium 8.3 Physical Exam Narrative Seen and examined Patient had EDGAR and cardiac cath in main campus. When needed he told me he felt his right side weak and fell on the side Denies any change in his language but patient sounds slower speech but no dysarthria. Patient stated his speech on baseline Physical exam General: Alert, Oriented x3, Cooperative HEENT: Atraumatic, PERRLA, EOMI, Normocephalic. Oral: No Gingival or Mucosal Lesions/ Ulcerations Neck: Supple, No JVD, Negative Carotid Bruits Chest wall/Lungs: Air entry diminished in bilateral lung bases. No crepitation/rhonchi Cardiovascular: Irregular rate and rhythm, A-fib. CABG scar. Prosthetic valve sound Abdomen: Bowel Sounds Present, Soft, Non Tender, Non-Distended : No dysuria. No renal angle tenderness. No suprapubic tenderness. Extremities: No edema, Capillary Refill Less than 3 Seconds Skin: No rashes, No breakdown Musculoskeletal: RLE weak at knee and hip, 3/5, RUE 4/5. Noticed improvement in the right upper extremity and left upper extremity strength. NIH stroke scale 5. Neurological: GCS 15. NIH stroke scale documented 5, 2 for RLE, 1 for RUE, 1 for disequilibrium and 1 for mild language deficit. Patient does not have dysarthria. Psych/Mental Status: Normal Affect, Appropriate. Assessment & Plan Assessment/Plan (1) Stroke-like symptoms: PLAN: Plan Patient is a 79-year-old male who presented to [facility] ED on 02/06/2025 with strokelike symptoms. The patient was trying to getting him out of the car and then he fell down. Denies LOC patient very weak, acute onset of right lower extremity weakness, difficulty ambulation and slurred speech after EDGAR and left heart cath at [facility] Main campus on 02/05. 1. Acute infarct multiple foci involving left yancy, posterior left frontal guallpa radiata and bilateral occipital lobe white matter suggestive of cardioembolic stroke, probably due to chronic of A-fib, mechanical prosthetic aortic valve and subtherapeutic INR with history of chronic infarct: ?Notably EDGAR showed apparent paravalvular regurgitation but did not show valvular echodensity, and no thrombus was noted in the LV. NIH score of 7 in the ED for right lower extremity weakness and CT brain and CTA head/neck unremarkable. Orders as per stroke protocol with BP and glucose monitoring, PT/OT/case management consulted. 02/07: MRI brain reported scattered small foci of acute infarct in left yancy, posterior left frontal guallpa radiata and bilateral occipital lobe white matter. No mass-effect or intracranial hemorrhage.Chronic infarct with encephalomalacia and gliosis involving the left frontal opercular region and left basal ganglia. NIH stroke scale reported by nursing staff 6 but 5 for me. Patient had EDGAR including clinic as an outpatient on day of admission. Prior TTE here does not show evidence of PFO or ASD. TTE EF 60%, left atrium moderately enlarged but no RWMA. Stable appearing mechanical aortic valve apparatus with mean AV gradient 22 mmHg. Patient was evaluated by neurologist and advised warfarin to keep INR more than 2.5/2.5-3.5. Patient on Lovenox 1 mg/kg body weight bridging with warfarin, dose is increased to 6 mg today. Monitor CBC and PT/INR daily. Patient also on Plavix because he had cardiac stent yesterday. Twelve-lead EKG A-fib 66 QRS 86, QT 452 ms. LKW on February 05 at 1500 as documented by ED physician. Fascial profile shows LDL 48, HDL 26. Glucose 91. TSH 2.54 on 01/07/2025. 02/08: A1c 4.9. Warfarin dose increased to 8 mg daily with daily monitoring of PT/INR. Continue Lovenox bridging till INR is therapeutic. Continue PT OT. A1c ordered for tomorrow a.m. 2. History of mechanical aortic valve with subtherapeutic INR, history of CAD with recent stenting, chronic HFpEF, hypertension, hyperlipidemia ? See HPI for further details. INR 1.5 on admit. Had left heart cath on 02/05 with KWAME x 1 to the proximal LAD. EDGAR showed EF 55% and patient with no volume overload on exam concerning for heart failure. Holding home antihypertensives for permissive hypertension. Will give 1 dose of therapeutic Lovenox this evening for subtherapeutic INR, follow-up a.m. INR level. Continue home atorvastatin. 02/07: Echo report as mentioned above. INR subtherapeutic 02/08: INR 1.4. Rest as mentioned above 3. Elevated troponins ? Troponin trend 48 > 42 > 43. EKG on admit with normal sinus rhythm, no acute ST changes. Recent left heart cath on 02/05 as above. No further cardiac workup needed at this time. 02/07: Elevated troponins decreasing trend. No chest pain. Had recent cardiac cath with stenting as mentioned above Chronic medical conditions: ? Class I obesity: BMI 31 on admit. Complicates hospital course and care. ? GERD: Continue home PPI. ? Hypothyroidism: Continue home Synthroid. ? BPH with obstructive symptoms: Continue home Flomax. ? Neuropathy: Continue home gabapentin. ? History of gout: Continue home allopurinol. DVT prophylaxis: Not indicated, on warfarin CODE STATUS: Full code, verified Expected disposition: Probably subacute rehab/acute rehab, under evaluation Laboratory Results 02/08/25 05:25: WBC 4.5, RBC 4.10 L, Hgb 11.8 L, Hct 36.1 L, MCV 88.0, MCH 28.8, MCHC 32.7, RDW Std Deviation 52.7 H, RDW Coeff of Clement 16.2 H, Plt Count 216, MPV 10.8, Immature Gran % (Auto) 0.700, Neut % (Auto) 71.7 H, Lymph % (Auto) 13.0 L, [place] % (Auto) 8.1, Eos % (Auto) 6.1 H, Baso % (Auto) 0.4, Absolute Neuts (auto) 3.2, Absolute Lymphs (auto) 0.58 L, Nucleated RBC % 0, PT 17.0 H, INR 1.4, Sodium 137, Potassium 3.7, Chloride 104, Carbon Dioxide 23.3, Anion Gap 10, BUN 6, Creatinine 0.59 L, Estim Creat Clear Calc 88.96, Est GFR (MDRD) Non-Af 99, BUN/Creatinine Ratio 10.4, Glucose 93, Hemoglobin A1c 4.9, Calcium 8.3 02/06/25 15:26: PT 17.9 H, INR 1.5, APTT 37.7 H 02/06/25 18:06: Troponin T Hi Sens 2 Hr 42 H 02/06/25 20:50: Troponin T Hi Sens 4Hr 43 H 02/07/25 05:44: WBC 4.9, RBC 4.39 L, Hgb 12.7 L, Hct 39.4 L, MCV 89.7, MCH 28.9, MCHC 32.2, RDW Std Deviation 54.1 H, RDW Coeff of Clement 16.5 H, Plt Count 225, MPV 9.9, Sodium 135, Potassium 3.9, Chloride 102, Carbon Dioxide 23.2, Anion Gap 10, BUN 6, Creatinine 0.69 L, Estim Creat Clear Calc 88.96, Est GFR (MDRD) Non-Af 94, BUN/Creatinine Ratio 8.0 L, Glucose 91, Calcium 8.8, Triglycerides 98, Cholesterol 93, LDL Cholesterol, Calc 48, VLDL Cholesterol 20, HDL Cholesterol 26 L, Cholesterol/HDL Ratio 3.59 Clinical Impression(s) from Imaging Studies Brain CT 02/06/25 15:19 IMPRESSION: No acute intracranial abnormality. Chronic and ancillary findings as above. Head/Neck CTA 02/06/25 15:19 IMPRESSION: No acute arterial abnormality of the head or neck. Atherosclerosis as above. Bilateral pleural effusions. Multinodular goiter. Brain MRI 02/06/25 16:24 IMPRESSION: Scattered small foci of acute infarct in the left yancy, posterior left frontal guallpa radiata and bilateral occipital lobe white matter. No mass-effect or intracranial hemorrhage. Chronic infarct with encephalomalacia and gliosis involving the left frontal opercular region and left basal ganglia. Mild-moderate chronic microangiopathic changes elsewhere. Reading Location: [id number] Charges/Coding Visit Charges Inpatient E&M: 80908 Subs Hosp L2 NIHSS NIHSS Nursing Documentation NIHSS Nursing Documentation: NIHSS: Ischemic Stroke/TIA Start: 02/06/25 17:03 Text: For PCU Patients: NIH and Neuro Check every 4 Status: Complete hours, PRN and with change in RN caregiver. Freq: [id number] Protocol: Activity Type Activity Date Activity User E-sign Co-sign Detail Recorded Client Recorded Date Recorded By Document 02/07/25 13:30 DS [id number] 02/07/25 15:53 DS 02/07/25 13:30 NIH Stroke Scale [NIHSS] A score of 0 is normal or asymptomatic . Total possible score is 42. Inpatient: RN or Physician to activate a stroke alert for onset of new stroke symptoms or with NIHSS increase >/= 3 points. Following change in neurological status, NIHSS will be performed per physician order or more frequently PRN. -1a. Level of Consciousness 0 - Alert; keenly responsive -1b. LOC Questions 0 - Answers BOTH questions correctly -1c. LOC Commands 0 - Performs BOTH tasks correctly -2. Best Gaze 0 - Normal -3. Visual 0 - No visual loss -4. Facial Palsy 1 - Minor paralysis ( flattened nasolabial fold , asymmetry on smiling) -5a. Left Arm 0 - No drift; arm holds 90 ( or 45) degrees for full 10 seconds -5b. Right Arm 1 - Drift; arm drifts downward but doesn?t hit the bed -6a. Left Leg 0 - No drift; leg holds 30- degree position for full 5 seconds -6b. Right Leg 2 - Some effort against gravity; -7. Limb Ataxia 1 - Present in 1 limb -8. Sensory 0 - Normal; no sensory loss -9. Best Language 1 - Mild-to- moderate aphasia; -10. Dysarthria 0 - Normal -11. Extinction and Inattention 0 - No abnormality -Total 6 Query Text:A score of 0 is normal or asymptomatic. Total possible score is 42 . ED: Notify Physician for NIHSS increase by > / = 3 points. Inpatient: RN or Physician to activate a stroke alert for NIHSS increase of > / = 3 points. Coma Scale [Assess] -Eye Opening Spontaneous -Motor Obeys Commands -Verbal Oriented [Total] -Coma Scale Total 15
[2025-02-08] MEDS: NILOTINIB HCL 150 MG 300 MG PO (13:23)
[2025-02-08] MEDS: Warfarin (PBKC) 4 MG Tablet 8 MG PO (17:01)
[2025-02-08] MEDS: Ensure Plus High Protein 120 ML LIQUID PO (17:06)
[2025-02-08] MEDS: MELATONIN 3 MG TABLET PO (22:49)
[2025-02-09] VITALS (7 sets, daily range): BP systolic 121–166; BP diastolic 59–82; PULSE 72–104; RESP 14–17; TEMP 36.3–36.7; O2SAT 94–98; BMI 31.8
[2025-02-09] MEDS: NILOTINIB HCL 150 MG 300 MG PO ×3 (00:08→23:08)
[2025-02-09 05:02] LABS: Hematocrit 36.9 % (40-54); Hemoglobin 12.0 g/dL (13.0-16.5); Immature Granulocytes Count 0.030 X10^3/uL (0.0-0.0); Mean Corp Hgb Conc 32.5 g/dL (32-36); Mean Corpuscular Volume 89.8 fL (80-94); Mean Platelet Vol. 10.5 fl (6.2-12.0); NRBC Flagged by Analyzer 0 % (0-5); POSITIVE DIFFERENTIAL YES; Platelet Count 234 K/mm3 (150-450); RBC Distribution Width CV 16.4 % (11.6-14.6); RBC Distribution Width SD 53.5 fl (35.1-43.9); Red Blood Count 4.11 M/mm3 (4.6-6.2); White Blood Count 4.8 K/mm3 (4.4-11.0)
[2025-02-09 05:20] LABS: Prothrombin Time (Protime)PT. 19.8 SECONDS (11.7-14.9)
--- NOTE | 2025-02-09 11:17 | PCM.PN.HOSP ---
Reason for Visit Chief Complaint: Strokelike symptoms Objective Data Objective Data Vital Signs: Vital Signs Temp Pulse Resp BP Pulse Ox O2 Del Method 97.8 F 78 14 155/69 H 98 Room Air 02/09/25 08:31 02/09/25 08:31 02/09/25 08:31 02/09/25 08:31 02/09/25 08:31 02/09/25 09:04 Oxygen Delivery Method Room Air Weight: 221 lb 9.033 oz Body Mass Index (BMI) 31.8 Intake & Output: Intake and Output for Last 24 Hours 02/07/25 02/08/25 02/09/25 23:59 23:59 23:59 Intake Total 980 / 1430 1050 / 1300 250 / 250 Output Total 1600 / 2550 1450 / 1450 100 / 100 Balance -620 / -1120 -400 / -150 150 / 150 Lab / Micro Data 02/09/25 04:20 02/08/25 05:25 Labs: Laboratory Results - last 24 hr 02/09/25 04:20: WBC 4.8, RBC 4.11 L, Hgb 12.0 L, Hct 36.9 L, MCV 89.8, MCH 29.2, MCHC 32.5, RDW Std Deviation 53.5 H, RDW Coeff of Clement 16.4 H, Plt Count 234, MPV 10.5, Immature Gran % (Auto) 0.600, Neut % (Auto) 73.5 H, Lymph % (Auto) 12.4 L, Kemper % (Auto) 7.9, Eos % (Auto) 5.2 H, Baso % (Auto) 0.4, Absolute Neuts (auto) 3.6, Absolute Lymphs (auto) 0.60 L, Nucleated RBC % 0, PT 19.8 H, INR 1.7 Physical Exam Narrative Seen and examined No acute issues. Patient did not had BM since admission about 3 to 4 days. Patient had EDGAR and cardiac cath in main campus on the day of admission. He was admitted with right side weak and fell on the right side Denies any change in his language but patient sounds slower speech but no dysarthria. Patient stated his speech on baseline Physical exam General: Alert, Oriented x3, Cooperative HEENT: Atraumatic, PERRLA, EOMI, Normocephalic. Oral: No Gingival or Mucosal Lesions/ Ulcerations Neck: Supple, No JVD, Negative Carotid Bruits Chest wall/Lungs: Air entry diminished in bilateral lung bases. No crepitation/rhonchi Cardiovascular: Irregular rate and rhythm, A-fib. CABG scar. Prosthetic valve sound Abdomen: Bowel Sounds Present, Soft, Non Tender, Non-Distended : No dysuria. No renal angle tenderness. No suprapubic tenderness. Extremities: No edema, Capillary Refill Less than 3 Seconds Skin: No rashes, No breakdown Musculoskeletal: RLE weak at knee and hip, 4/5, RUE 4/5. Noticed improvement in RUE and RLE strength. Neurological: GCS 15. NIH stroke scale documented 5. Patient does not have dysarthria. Psych/Mental Status: Normal Affect, Appropriate. Assessment & Plan Assessment/Plan (1) Stroke-like symptoms: PLAN: Plan Patient is a 79-year-old male who presented to [facility] ED on 02/06/2025 with strokelike symptoms. The patient was trying to getting him out of the car and then he fell down. Denies LOC patient very weak, acute onset of right lower extremity weakness, difficulty ambulation and slurred speech after EDGAR and left heart cath at [facility] on 02/05. 1. Acute infarct multiple foci involving left yancy, posterior left frontal guallpa radiata and bilateral occipital lobe white matter suggestive of cardioembolic stroke, probably due to chronic of A-fib, mechanical prosthetic aortic valve and subtherapeutic INR with history of chronic infarct: ?Notably EDGAR showed apparent paravalvular regurgitation but did not show valvular echodensity, and no thrombus was noted in the LV. NIH score of 7 in the ED for right lower extremity weakness and CT brain and CTA head/neck unremarkable. Orders as per stroke protocol with BP and glucose monitoring, PT/OT/case management consulted. 02/07: MRI brain reported scattered small foci of acute infarct in left yancy, posterior left frontal guallpa radiata and bilateral occipital lobe white matter. No mass-effect or intracranial hemorrhage.Chronic infarct with encephalomalacia and gliosis involving the left frontal opercular region and left basal ganglia. NIH stroke scale reported by nursing staff 6 but 5 for me. Patient had EDGAR including clinic as an outpatient on day of admission. Prior TTE here does not show evidence of PFO or ASD. TTE EF 60%, left atrium moderately enlarged but no RWMA. Stable appearing mechanical aortic valve apparatus with mean AV gradient 22 mmHg. Patient was evaluated by neurologist and advised warfarin to keep INR more than 2.5/2.5-3.5. Patient on Lovenox 1 mg/kg body weight bridging with warfarin, dose is increased to 6 mg today. Monitor CBC and PT/INR daily. Patient also on Plavix because he had cardiac stent yesterday. Twelve-lead EKG A-fib 66 QRS 86, QT 452 ms. LKW on February 05 at 1500 as documented by ED physician. Fascial profile shows LDL 48, HDL 26. Glucose 91. TSH 2.54 on 01/07/2025. 02/08: A1c 4.9. INR 1.4. Warfarin dose increased to 8 mg daily with daily monitoring of PT/INR. Continue Lovenox bridging till INR is therapeutic. Continue PT OT. A1c ordered for tomorrow a.m. 02/09: INR 1.7, gradual improvement. Warfarin increased to 10 mg daily. Once INR is about 2.5, overlap bridging Lovenox for 2 days and then discontinue. Daily monitoring of CBC and PT/INR and titrate the dose of warfarin accordingly. Patient will need inpatient rehab depending on physical therapy and case management evaluation. 2. History of mechanical aortic valve with subtherapeutic INR, history of CAD with recent stenting, chronic HFpEF, hypertension, hyperlipidemia ? See HPI for further details. INR 1.5 on admit. Had left heart cath on 02/05 with KWAME x 1 to the proximal LAD. EDGAR showed EF 55% and patient with no volume overload on exam concerning for heart failure. Holding home antihypertensives for permissive hypertension. Will give 1 dose of therapeutic Lovenox this evening for subtherapeutic INR, follow-up a.m. INR level. Continue home atorvastatin. 02/07: Echo report as mentioned above. INR subtherapeutic 02/08: INR 1.4. Rest as mentioned above 02/09: INR 1.7 rest as mentioned above. 3. Elevated troponins ? Troponin trend 48 > 42 > 43. EKG on admit with normal sinus rhythm, no acute ST changes. Recent left heart cath on 02/05 as above. No further cardiac workup needed at this time. 02/07: Elevated troponins decreasing trend. No chest pain. Had recent cardiac cath with stenting as mentioned above Patient did not had bowel movement therefore on senna S, MiraLAX and Dulcolax. Hold stool softener once he has bowel movement. Goal is 1 BM per day Chronic medical conditions: ? Class I obesity: BMI 31 on admit. Complicates hospital course and care. ? GERD: Continue home PPI. ? Hypothyroidism: Continue home Synthroid. ? BPH with obstructive symptoms: Continue home Flomax. ? Neuropathy: Continue home gabapentin. ? History of gout: Continue home allopurinol. DVT prophylaxis: Not indicated, on warfarin CODE STATUS: Full code, verified Expected disposition: Probably subacute rehab/acute rehab, under evaluation Laboratory Results 02/09/25 04:20: WBC 4.8, RBC 4.11 L, Hgb 12.0 L, Hct 36.9 L, MCV 89.8, MCH 29.2, MCHC 32.5, RDW Std Deviation 53.5 H, RDW Coeff of Clement 16.4 H, Plt Count 234, MPV 10.5, Immature Gran % (Auto) 0.600, Neut % (Auto) 73.5 H, Lymph % (Auto) 12.4 L, Kemper % (Auto) 7.9, Eos % (Auto) 5.2 H, Baso % (Auto) 0.4, Absolute Neuts (auto) 3.6, Absolute Lymphs (auto) 0.60 L, Nucleated RBC % 0, PT 19.8 H, INR 1.7 02/06/25 15:26: PT 17.9 H, INR 1.5, APTT 37.7 H 02/06/25 18:06: Troponin T Hi Sens 2 Hr 42 H 02/06/25 20:50: Troponin T Hi Sens 4Hr 43 H 02/07/25 05:44: WBC 4.9, RBC 4.39 L, Hgb 12.7 L, Hct 39.4 L, MCV 89.7, MCH 28.9, MCHC 32.2, RDW Std Deviation 54.1 H, RDW Coeff of Clement 16.5 H, Plt Count 225, MPV 9.9, Sodium 135, Potassium 3.9, Chloride 102, Carbon Dioxide 23.2, Anion Gap 10, BUN 6, Creatinine 0.69 L, Estim Creat Clear Calc 88.96, Est GFR (MDRD) Non-Af 94, BUN/Creatinine Ratio 8.0 L, Glucose 91, Calcium 8.8, Triglycerides 98, Cholesterol 93, LDL Cholesterol, Calc 48, VLDL Cholesterol 20, HDL Cholesterol 26 L, Cholesterol/HDL Ratio 3.59 Clinical Impression(s) from Imaging Studies Brain CT 02/06/25 15:19 IMPRESSION: No acute intracranial abnormality. Chronic and ancillary findings as above. Head/Neck CTA 02/06/25 15:19 IMPRESSION: No acute arterial abnormality of the head or neck. Atherosclerosis as above. Bilateral pleural effusions. Multinodular goiter. Brain MRI 02/06/25 16:24 IMPRESSION: Scattered small foci of acute infarct in the left yancy, posterior left frontal guallpa radiata and bilateral occipital lobe white matter. No mass-effect or intracranial hemorrhage. Chronic infarct with encephalomalacia and gliosis involving the left frontal opercular region and left basal ganglia. Mild-moderate chronic microangiopathic changes elsewhere. Reading Location: [id number] Charges/Coding Visit Charges Inpatient E&M: 12116 Subs Hosp L2 NIHSS NIHSS Nursing Documentation NIHSS Nursing Documentation: NIHSS: Ischemic Stroke/TIA Start: 02/06/25 17:03 Text: For PCU Patients: NIH and Neuro Check every 4 Status: Complete hours, PRN and with change in RN caregiver. Freq: [id number] Protocol: Activity Type Activity Date Activity User E-sign Co-sign Detail Recorded Client Recorded Date Recorded By Document 02/07/25 13:30 DS [id number] 02/07/25 15:53 DS 02/07/25 13:30 NIH Stroke Scale [NIHSS] A score of 0 is normal or asymptomatic . Total possible score is 42. Inpatient: RN or Physician to activate a stroke alert for onset of new stroke symptoms or with NIHSS increase >/= 3 points. Following change in neurological status, NIHSS will be performed per physician order or more frequently PRN. -1a. Level of Consciousness 0 - Alert; keenly responsive -1b. LOC Questions 0 - Answers BOTH questions correctly -1c. LOC Commands 0 - Performs BOTH tasks correctly -2. Best Gaze 0 - Normal -3. Visual 0 - No visual loss -4. Facial Palsy 1 - Minor paralysis ( flattened nasolabial fold , asymmetry on smiling) -5a. Left Arm 0 - No drift; arm holds 90 ( or 45) degrees for full 10 seconds -5b. Right Arm 1 - Drift; arm drifts downward but doesn?t hit the bed -6a. Left Leg 0 - No drift; leg holds 30- degree position for full 5 seconds -6b. Right Leg 2 - Some effort against gravity; -7. Limb Ataxia 1 - Present in 1 limb -8. Sensory 0 - Normal; no sensory loss -9. Best Language 1 - Mild-to- moderate aphasia; -10. Dysarthria 0 - Normal -11. Extinction and Inattention 0 - No abnormality -Total 6 Query Text:A score of 0 is normal or asymptomatic. Total possible score is 42 . ED: Notify Physician for NIHSS increase by > / = 3 points. Inpatient: RN or Physician to activate a stroke alert for NIHSS increase of > / = 3 points. Coma Scale [Assess] -Eye Opening Spontaneous -Motor Obeys Commands -Verbal Oriented [Total] -Coma Scale Total 15
[2025-02-09] MEDS: Warfarin (PBKC) 5 MG Tablet 10 MG PO (16:29)
[2025-02-09] MEDS: Senna/Docusate Sodium 1 Tablet 2 TABLET PO (21:43)
[2025-02-09] MEDS: MELATONIN 3 MG TABLET PO (21:43)
[2025-02-10 03:10] VITALS: BP 153/72; PULSE 81; RESP 18; TEMP 36.8; O2SAT 94
[2025-02-10 05:00] VITALS: BMI 31.8
[2025-02-10 05:51] LABS: Hematocrit 39.9 % (40-54); Hemoglobin 12.8 g/dL (13.0-16.5); Immature Granulocytes Count 0.040 X10^3/uL (0.0-0.0); Mean Corp Hgb Conc 32.1 g/dL (32-36); Mean Corpuscular Volume 89.5 fL (80-94); Mean Platelet Vol. 10.3 fl (6.2-12.0); NRBC Flagged by Analyzer 0 % (0-5); Platelet Count 261 K/mm3 (150-450); RBC Distribution Width CV 16.4 % (11.6-14.6); RBC Distribution Width SD 53.7 fl (35.1-43.9); Red Blood Count 4.46 M/mm3 (4.6-6.2); White Blood Count 5.2 K/mm3 (4.4-11.0)
[2025-02-10 06:14] LABS: Anion Gap 9 (5-15); BUN 8 mg/dL (4-19); BUN/Creat Ratio 12.1 RATIO (10-20); Calcium,Total 8.8 mg/dL (7.6-11.0); Carbon Dioxide 23.8 mmol/L (21.0-32.0); Chloride 103 mmol/L (98-108); Estimated Creatinine Clearance 88.96 ml/min (50-250); Glucose 108 mg/dL (70-99); Potassium 3.7 mmol/L (3.3-5.1)
[2025-02-10 06:17] LABS: Prothrombin Time (Protime)PT. 27.2 SECONDS (11.7-14.9)
[2025-02-10 08:10] VITALS: O2SAT 95
[2025-02-10 08:50] VITALS: BP 160/81; PULSE 82; RESP 15; TEMP 36.9; O2SAT 98
[2025-02-10] MEDS: Ensure Plus High Protein 120 ML LIQUID PO ×3 (08:56→17:50)
[2025-02-10] MEDS: Senna/Docusate Sodium 1 Tablet 2 TABLET PO ×2 (08:57→21:50)
[2025-02-10] MEDS: NILOTINIB HCL 150 MG 300 MG PO ×2 (10:55→22:48)
--- NOTE | 2025-02-10 13:37 | CASEMGMT ---
Addendum entered by Mary Resendiz 02/10/25 14:13: Therapy is recommending further therapy. Addendum entered by Mary Resendiz 02/10/25 13:59: [facility] Ben[facility]ides reported Medicare part A will pay for testing and rehab doctors visits. Original Note: Social Work SW spoke with the and informed [facility] acute rehab is full and patient can not DC to TCU while taking Nilotinib. The reported the patient needs to take that medication. SW informed her that [facility] reported Medicare part A does not pay for testing and rehab doctors visits. The chose [facility] for her to DC to for more rehab. NADER Crain
--- NOTE | 2025-02-10 13:49 | CASEMGMT ---
Addendum entered by Kalina Bermudez 02/10/25 15:33: Acceptance remains pending with [facility]. [facility] referral has not been cancelled at this time. Kalina Bermudez DC Planning Asst. Original Note: Discharge Planning Requested clinicals sent via [facility] to [facility]. Kalina Bermudez DC Planning Asst.
--- NOTE | 2025-02-10 15:15 | CASEMGMT ---
Social Work SHIRA spoke with the in the patients room. SHIRA informed her [facility] is reviewing the records sent to them and there should have a decision from [facility] tomorrow morning. NADER Crain
[2025-02-10 16:08] VITALS: BMI 31.8
[2025-02-10 17:01] VITALS: BP 152/70; PULSE 80; RESP 16; TEMP 36.9; O2SAT 99
[2025-02-10 17:12] VITALS: BMI 31.8
[2025-02-10] MEDS: Warfarin (PBKC) 5 MG Tablet 10 MG PO (17:46)
--- NOTE | 2025-02-10 19:25 | PCM.PN.HOSP ---
Reason for Visit Chief Complaint: Strokelike symptoms Subjective Subjective Patient was seen and examined today, we are waiting approval for the patient to go to a rehab facility at [facility] in [facility]. Patient denies any problems at the time of my examination. Patient remains in atrial fibrillation at this time. Objective Data Objective Data Vital Signs: Vital Signs Temp Pulse Resp BP Pulse Ox O2 Del Method 98.5 F 80 16 152/70 H 99 Room Air 02/10/25 17:01 02/10/25 17:01 02/10/25 17:01 02/10/25 17:01 02/10/25 17:01 02/10/25 17:01 Oxygen Delivery Method Room Air Weight: 100.5 kg Body Mass Index (BMI) 31.8 Intake & Output: Intake and Output for Last 24 Hours 02/08/25 02/09/25 02/10/25 23:59 23:59 23:59 Intake Total 1050 / 1300 400 / 400 500 / 500 Output Total 1450 / 1450 100 / 900 1650 / 1650 Balance -400 / -150 300 / -500 -1150 / -1150 Lab / Micro Data 02/12/25 05:41 02/12/25 05:41 Labs: Laboratory Results - last 24 hr 02/10/25 05:32: WBC 5.2, RBC 4.46 L, Hgb 12.8 L, Hct 39.9 L, MCV 89.5, MCH 28.7, MCHC 32.1, RDW Std Deviation 53.7 H, RDW Coeff of Clement 16.4 H, Plt Count 261, MPV 10.3, Immature Gran % (Auto) 0.800, Neut % (Auto) 69.8, Lymph % (Auto) 16.7 L, [place] % (Auto) 7.5, Eos % (Auto) 4.6, Baso % (Auto) 0.6, Absolute Neuts (auto) 3.7, Absolute Lymphs (auto) 0.87, Nucleated RBC % 0, PT 27.2 H, INR 2.5, Sodium 135, Potassium 3.7, Chloride 103, Carbon Dioxide 23.8, Anion Gap 9, BUN 8, Creatinine 0.69 L, Estim Creat Clear Calc 88.96, Est GFR (MDRD) Non-Af 94, BUN/Creatinine Ratio 12.1, Glucose 108 H, Calcium 8.8 Physical Exam Const alert, oriented x3 and no apparent distress General Appearance: cooperative, well kempt and well developed Orientation / Consciousness: awake, oriented to person, oriented to place and oriented to time HEENT normocephalic, head/scalp atraumatic and moist oral mucous membranes Eyes PERRL, EOMs intact bilaterally and conjunctivae normal Neck supple, no JVD, thyroid normal and no carotid bruits General: trachea midline Resp normal respiratory effort, no retractions, no use of accessory muscles and clear to auscultation bilaterally Auscultation: Negative for rales, rhonchi or wheezes Cardio no murmurs, no rub and no gallops Cardio Narrative: Heart rate and rhythm is irregular GI normal to inspection, nondistended, normoactive bowel sounds, soft to palpation, non-tender and non-distended Extremity no clubbing, cyanosis or edema Skin no rashes or lesions noted General Skin Exam: no breakdown Neuro oriented x3, CN's II-XII intact bilaterally, moves all extremities, no focal motor deficits and no sensory deficits noted Sensorium / Orientation: awake and alert Speech: speech normal Psych affect normal Assessment & Plan Assessment/Plan (1) Acute cerebrovascular accident (CVA): PLAN: Plan 1. Acute ischemic infarction involving the left yancy, posterior left frontal guallpa radiata, and bilateral occipital lobes-this suggest a cardioembolic stroke secondary to atrial fibrillation. Patient's INR today was 2.5 #2 chronic anticoagulation due to mechanical heart valve-INR will be monitored #3 essential hypertension-patient's blood pressure medication is being held at this time, blood pressure to be monitored #4 hypothyroidism-the patient is on Synthroid #5 chronic myelocytic leukemia-patient is currently on nilotiniv #6 generalized debility-patient will need placement for short-term rehab services in a custodial facility or rehab center, family will make the decision due to the fact that he is on chemotherapy and according to the transitional care unit, they are not able to let the patient take his home chemo med, the rehab unit here will allow the patient to take his home chemo med Total clinical time spent by myself addressing the patient's medical issues, reviewing all of his data, and collaborating with patient's care team: 35 minutes Charges/Coding Visit Charges Inpatient E&M: 15637 Subs Hosp L2 NIHSS NIHSS Nursing Documentation NIHSS Nursing Documentation: NIHSS: Ischemic Stroke/TIA Start: 02/06/25 17:03 Text: For PCU Patients: NIH and Neuro Check every 4 Status: Complete hours, PRN and with change in RN caregiver. Freq: [id number] Protocol: Activity Type Activity Date Activity User E-sign Co-sign Detail Recorded Client Recorded Date Recorded By Document 02/09/25 11:38 [id number] 02/09/25 11:39 02/09/25 11:38 NIH Stroke Scale [NIHSS] A score of 0 is normal or asymptomatic . Total possible score is 42. Inpatient: RN or Physician to activate a stroke alert for onset of new stroke symptoms or with NIHSS increase >/= 3 points. Following change in neurological status, NIHSS will be performed per physician order or more frequently PRN. -1a. Level of Consciousness 0 - Alert; keenly responsive -1b. LOC Questions 0 - Answers BOTH questions correctly -1c. LOC Commands 0 - Performs BOTH tasks correctly -2. Best Gaze 0 - Normal -3. Visual 0 - No visual loss -4. Facial Palsy 0 - Normal symmetrical movements -5a. Left Arm 0 - No drift; arm holds 90 ( or 45) degrees for full 10 seconds -5b. Right Arm 2 - Some effort against gravity; -6a. Left Leg 0 - No drift; leg holds 30- degree position for full 5 seconds -6b. Right Leg 2 - Some effort against gravity; -7. Limb Ataxia 1 - Present in 1 limb -8. Sensory 0 - Normal; no sensory loss -9. Best Language 1 - Mild-to- moderate aphasia; -10. Dysarthria 1 = Mild-to- moderate dysarthria; -11. Extinction and Inattention 0 - No abnormality -Total 7 Query Text:A score of 0 is normal or asymptomatic. Total possible score is 42 . ED: Notify Physician for NIHSS increase by > / = 3 points. Inpatient: RN or Physician to activate a stroke alert for NIHSS increase of > / = 3 points. Coma Scale [Assess] -Eye Opening Spontaneous -Motor Obeys Commands -Verbal Oriented [Total] -Coma Scale Total 15
[2025-02-10] MEDS: 0.9% Saline Lock 10 ML Syringe IV (21:50)
[2025-02-10 21:55] VITALS: BP 134/108; PULSE 75; RESP 14; TEMP 36.6; O2SAT 97
[2025-02-10 22:01] VITALS: BMI 31.8
[2025-02-11 02:20] VITALS: BP 160/67; PULSE 70; RESP 14; TEMP 36.7; O2SAT 94
[2025-02-11 05:45] VITALS: BP 149/68; PULSE 75; RESP 18; TEMP 37; O2SAT 91
[2025-02-11 05:59] LABS: Hematocrit 35.8 % (40-54); Hemoglobin 11.8 g/dL (13.0-16.5); Immature Granulocytes Count 0.030 X10^3/uL (0.0-0.0); Mean Corp Hgb Conc 33.0 g/dL (32-36); Mean Corpuscular Volume 89.1 fL (80-94); Mean Platelet Vol. 10.6 fl (6.2-12.0); NRBC Flagged by Analyzer 0 % (0-5); POSITIVE DIFFERENTIAL YES; Platelet Count 221 K/mm3 (150-450); RBC Distribution Width CV 16.3 % (11.6-14.6); RBC Distribution Width SD 53.3 fl (35.1-43.9); Red Blood Count 4.02 M/mm3 (4.6-6.2); White Blood Count 5.7 K/mm3 (4.4-11.0)
[2025-02-11 06:22] LABS: Prothrombin Time (Protime)PT. 32.9 SECONDS (11.7-14.9)
--- NOTE | 2025-02-11 08:13 | CASEMGMT ---
Discharge Planning [facility] accepted pt. SW updated. Kalina Bermudez DC Planning Asst.
[2025-02-11 10:30] VITALS: BP 137/68; PULSE 69; RESP 16; TEMP 36.6; O2SAT 96
[2025-02-11] MEDS: Polyethylene Glycol 3350 17 GM PACKET PO (10:37)
[2025-02-11] MEDS: Senna/Docusate Sodium 1 Tablet 2 TABLET PO (10:37)
--- NOTE | 2025-02-11 14:35 | PN.HOSP_ITS ---
Reason for Visit Chief Complaint: Strokelike symptoms Subjective Subjective Patient was seen and examined today, his would like him to either go to the rehab unit here at the hospital or go to [facility] rather than go to [place] rehab. Patient unfortunately will not be able to take his own chemo med in the transitional care unit. I did talk to the patient's oncologist (Dr. Sharda Grigsby) she stated that she would rather not have the patient go off his nilotiniv. I will relay this to the patient's and daughter. Objective Data Objective Data Vital Signs: Vital Signs Temp Pulse Resp BP Pulse Ox O2 Del Method 97.8 F 69 16 137/68 H 96 Room Air 02/11/25 10:30 02/11/25 10:30 02/11/25 10:30 02/11/25 10:30 02/11/25 10:30 02/11/25 10:30 Oxygen Delivery Method Room Air Weight: 100.5 kg Body Mass Index (BMI) 31.8 Intake & Output: Intake and Output for Last 24 Hours 02/09/25 02/10/25 02/11/25 23:59 23:59 23:59 Intake Total 400 / 400 680 / 680 350 / 350 Output Total 100 / 900 1950 / 1950 600 / 600 Balance 300 / -500 -1270 / -1270 -250 / -250 Lab / Micro Data 02/12/25 05:41 02/12/25 05:41 Labs: Laboratory Results - last 24 hr 02/11/25 05:12: WBC 5.7, RBC 4.02 L, Hgb 11.8 L, Hct 35.8 L, MCV 89.1, MCH 29.4, MCHC 33.0, RDW Std Deviation 53.3 H, RDW Coeff of Clement 16.3 H, Plt Count 221, MPV 10.6, Immature Gran % (Auto) 0.500, Neut % (Auto) 85.8 H, Lymph % (Auto) 6.8 L, [place] % (Auto) 4.9, Eos % (Auto) 1.8, Baso % (Auto) 0.2, Absolute Neuts (auto) 4.9, Absolute Lymphs (auto) 0.39 L, Nucleated RBC % 0, PT 32.9 H, INR 3.1 Physical Exam Narrative alert, oriented x3 and no apparent distress General Appearance: cooperative, well kempt and well developed Orientation / Consciousness: awake, oriented to person, oriented to place and oriented to time HEENT normocephalic, head/scalp atraumatic and moist oral mucous membranes Eyes PERRL, EOMs intact bilaterally and conjunctivae normal Neck supple, no JVD, thyroid normal and no carotid bruits General: trachea midline Resp normal respiratory effort, no retractions, no use of accessory muscles and clear to auscultation bilaterally Auscultation: Negative for rales, rhonchi or wheezes Cardio no murmurs, no rub and no gallops Cardio Narrative: Heart rate and rhythm is irregular GI normal to inspection, nondistended, normoactive bowel sounds, soft to palpation, non-tender and non-distended Extremity no clubbing, cyanosis or edema Skin no rashes or lesions noted General Skin Exam: no breakdown Neuro oriented x3, CN's II-XII intact bilaterally, moves all extremities, no focal motor deficits and no sensory deficits noted Sensorium / Orientation: awake and alert Speech: speech normal Psych affect normal Assessment & Plan Assessment/Plan (1) Acute cerebrovascular accident (CVA): PLAN: Plan 1. Acute ischemic infarction involving the left yancy, posterior left frontal guallpa radiata, and bilateral occipital lobes-this suggest a cardioembolic stroke secondary to atrial fibrillation. Patient's INR today was 3.1 #2 chronic anticoagulation due to mechanical heart valve-INR will be monitored #3 essential hypertension-patient's blood pressure medication is being held at this time, blood pressure to be monitored #4 hypothyroidism-the patient is on Synthroid #5 chronic myelocytic leukemia-patient is currently on nilotiniv #6 generalized debility-patient will need placement for short-term rehab services in a rehab center, family made that decision due to the fact that he is on chemotherapy and according to the transitional care unit, they are not able to let the patient take his home chemo med, the rehab unit here will allow the patient to take his home chemo med, we are awaiting a bed in the rehab unit. Patient's family does not want him to go to the [facility] re[facility]. Total clinical time spent by myself addressing the patient's medical issues, reviewing all of his data, and collaborating with patient's care team: 35 minutes Charges/Coding Visit Charges Inpatient E&M: 96614 Subs Hosp L2 NIHSS NIHSS Nursing Documentation NIHSS Nursing Documentation: NIHSS: Ischemic Stroke/TIA Start: 02/06/25 17:03 Text: For PCU Patients: NIH and Neuro Check every 4 Status: Complete hours, PRN and with change in RN caregiver. Freq: [id number] Protocol: Activity Type Activity Date Activity User E-sign Co-sign Detail Recorded Client Recorded Date Recorded By Document 02/09/25 11:38 [id number] 02/09/25 11:39 NB 02/09/25 11:38 NIH Stroke Scale [NIHSS] A score of 0 is normal or asymptomatic . Total possible score is 42. Inpatient: RN or Physician to activate a stroke alert for onset of new stroke symptoms or with NIHSS increase >/= 3 points. Following change in neurological status, NIHSS will be performed per physician order or more frequently PRN. -1a. Level of Consciousness 0 - Alert; keenly responsive -1b. LOC Questions 0 - Answers BOTH questions correctly -1c. LOC Commands 0 - Performs BOTH tasks correctly -2. Best Gaze 0 - Normal -3. Visual 0 - No visual loss -4. Facial Palsy 0 - Normal symmetrical movements -5a. Left Arm 0 - No drift; arm holds 90 ( or 45) degrees for full 10 seconds -5b. Right Arm 2 - Some effort against gravity; -6a. Left Leg 0 - No drift; leg holds 30- degree position for full 5 seconds -6b. Right Leg 2 - Some effort against gravity; -7. Limb Ataxia 1 - Present in 1 limb -8. Sensory 0 - Normal; no sensory loss -9. Best Language 1 - Mild-to- moderate aphasia; -10. Dysarthria 1 = Mild-to- moderate dysarthria; -11. Extinction and Inattention 0 - No abnormality -Total 7 Query Text:A score of 0 is normal or asymptomatic. Total possible score is 42 . ED: Notify Physician for NIHSS increase by > / = 3 points. Inpatient: RN or Physician to activate a stroke alert for NIHSS increase of > / = 3 points. Coma Scale [Assess] -Eye Opening Spontaneous -Motor Obeys Commands -Verbal Oriented [Total] -Coma Scale Total 15
[2025-02-11 16:03] VITALS: BP 142/90; PULSE 86; RESP 12; TEMP 36.3; O2SAT 97
--- NOTE | 2025-02-11 16:15 | CASEMGMT ---
Social Work Received notice from discharge experience planning strategist Kalina that patient is accepted to [facility] acute rehab. Met with the patient's , at the 's request who requests and is advocating for patient to be able to stay at [facility] for postacute rehabilitation services. Educated to the limits of bed availability. Educated that [facility] acute rehab is able to accept. expressed that the patient would be willing to go off of the chemo medication if this means patient could be accepted to the transitional care unit. Note this conversation occurred outside patient's room, as patient was toileting and wanted to allow patient to have some privacy. During this discussion also discussed patient recently having a procedure at [facility] and on day of discharge requiring assist of 2 people for transfers and extended time for lower body dressing. expressed much concern the patient was even discharged from [facility] in the first place and felt the patient needed more care. reports patient did not even get out of the car upon return home before the called the squad to bring the patient to the hospital. Supportive listening, validation and encouragement provided to during this discussion. Spoke with Cristine in admissions for [facility] TCU and rehab units. The patient's chemo medication is impeding the ability to accept to the transitional care unit. The acute rehab unit is currently full however there may be a possibility of openings tomorrow oh 02/12/2025 and should no later today whether those beds will be opening up. Met with patient and patient's to update. reports patient was actually off the chemo medication for about a week and a half leading up to the patient's hospitalization at [facility], and the patient really just started the chemo medication since coming back to [place]. Patient's and share that patient goes to that [facility] for his oncology needs. Patient sees Dr. Lupillo Grigsby. Discussed with provider Dr. Escobar who will reach out to oncologist about potential cessation of chemo medication even for short time. Per follow-up discussion with Dr. Albarado, the oncologist does prefer for the patient to remain on the chemo medications. Spoke with Cristine in admissions at the [facility] and rehab units. So far there are no open beds on the acute rehab unit at [facility]. Met with patient and patient's to update, and that it appears the only current option is [facility] rehab unit. expressed much concerned about patient being medically ready to discharge, voicing concern about the patient's arms and legs being swollen particularly on the right side and patient also having stomach pain. Educated to patient rights including report message from Medicare, which appears to have been given with a copy noted in patient's room. expressed would intend to appeal patient's discharge at this juncture just feeling patient is not even ready yet to go to the rehab unit. Discussed with the patient and that this functional tester typewriters would relay concerns to hospitalist/provider and that at time of decision to discharge the patient, if the concern about medical readiness was still present to please let social work know of intent to appeal - so as to help coordinate compliance with [facility] records requests. expressed understanding and agreement. Expressed thanks for social worker health services talking with patient and today. Updated provider on status of discharge planning, with current options seeming to be [facility], and of 's voiced concerns about patient's medical readiness including the swelling in the right sided extremities and also reported stomach pain. Voicemail left for Cristine in admissions at [facility] and rehab units requesting an update on rehab unit bed availability on 02/12/2025. Plan: Acute rehab level of care, [facility] versus [facility]. Social work will continue to follow and assist for discharge planning and support. -ROD Urrutia, AIR CONDITIONING UNIT ASSEMBLER *This note was generated with [employer] dictation software. It may contain incorrect words, spelling, and punctuation that were not noted in review of the chart prior to signing*
[2025-02-11 17:00] VITALS: BMI 31.8
[2025-02-11] MEDS: Warfarin (PBKC) 5 MG Tablet 10 MG PO (17:15)
[2025-02-11] MEDS: Ensure Plus High Protein 120 ML LIQUID PO (17:15)
[2025-02-11 21:25] VITALS: BP 153/55; PULSE 62; RESP 16; TEMP 36.6; O2SAT 98
[2025-02-11] MEDS: NILOTINIB HCL 150 MG 300 MG PO (21:31)
[2025-02-12 01:34] VITALS: BMI 31.8
[2025-02-12 03:30] VITALS: BP 148/61; PULSE 62; RESP 16; TEMP 36.5; O2SAT 98
[2025-02-12] MEDS: 0.9% Saline Lock 10 ML Syringe IV (05:37)
[2025-02-12 06:40] LABS: Hematocrit 35.0 % (40-54); Hemoglobin 11.4 g/dL (13.0-16.5); Immature Granulocytes Count 0.030 X10^3/uL (0.0-0.0); Mean Corp Hgb Conc 32.6 g/dL (32-36); Mean Corpuscular Volume 90.0 fL (80-94); Mean Platelet Vol. 10.8 fl (6.2-12.0); NRBC Flagged by Analyzer 0 % (0-5); POSITIVE DIFFERENTIAL YES; Platelet Count 216 K/mm3 (150-450); RBC Distribution Width CV 16.4 % (11.6-14.6); RBC Distribution Width SD 53.9 fl (35.1-43.9); Red Blood Count 3.89 M/mm3 (4.6-6.2); White Blood Count 3.9 K/mm3 (4.4-11.0)
[2025-02-12 06:45] LABS: Prothrombin Time (Protime)PT. 43.7 SECONDS (11.7-14.9)
[2025-02-12 07:06] LABS: AST(SGOT) 27 U/L (<=37); Alanine Aminotransfer ALT/SGPT 48 U/L (<=46); Albumin, Serum 3.1 g/dL (3.4-4.8); Alkaline Phosphatase 165 U/L (40-129); Anion Gap 6 (5-15); BUN 10 mg/dL (4-19); BUN/Creat Ratio 14.9 RATIO (10-20); Calcium,Total 8.6 mg/dL (7.6-11.0); Carbon Dioxide 26.9 mmol/L (21.0-32.0); Chloride 105 mmol/L (98-108); Estimated Creatinine Clearance 88.96 ml/min (50-250); Globulin 2.4 g/dL (2.2-4.2); Glucose 97 mg/dL (70-99); Potassium 3.6 mmol/L (3.3-5.1)
[2025-02-12 08:44] VITALS: BP 150/57; PULSE 64; RESP 17; TEMP 36.5; O2SAT 98
[2025-02-12] MEDS: NILOTINIB HCL 150 MG 300 MG PO ×2 (08:49→22:16)
[2025-02-12] MEDS: Ensure Plus High Protein 120 ML LIQUID PO (08:57)
--- NOTE | 2025-02-12 10:49 | CASEMGMT ---
Discharge Planning Andrew notified via [facility] to cancel referral. Kalina Bermudez DC Planning Asst.
--- NOTE | 2025-02-12 10:57 | CASEMGMT ---
Social Work SHIRA spoke with Cristine in [facility]. A bed will be available in tomorrow 02/13 and pt has been accepted. SHIRA spoke with physician who feels this is the most appropriate level of care for pt and agreeable to dc plan. Phone call to pt Cyndi and updated that [facility] will be able to accept pt as early as tomorrow if pt is medically ready at that time. Pt thankful for this information and states that she has already spoke with pt and he is aware of this and agreeable as well. Cyndi has no other questions at this time. DC assistant teacher updated and to cancel referral at [facility]. Plan: [facility] Inpatient Rehab, Bed available 02/13 TAVON Hernandez
[2025-02-12 15:00] VITALS: BP 131/66; PULSE 88; RESP 17; TEMP 36.6; O2SAT 99
[2025-02-12 15:18] VITALS: BMI 31.8
--- NOTE | 2025-02-12 18:32 | PN.HOSP_ITS ---
Reason for Visit Chief Complaint: Strokelike symptoms Subjective Subjective Patient was seen and examined today, he complains of right rib pain- confirmed that he had a fall when he was trying to use his walker and hit his right side. I asked the patient if he wanted any rib x-rays performed and he stated that he would like them performed. It appears that will be better in the [place] rehab unit tomorrow. Patient's INR today was elevated at 4.5 Objective Data Objective Data Vital Signs: Vital Signs Temp Pulse Resp BP Pulse Ox O2 Del Method 97.9 F 88 17 131/66 H 99 Room Air 02/12/25 15:00 02/12/25 15:00 02/12/25 15:00 02/12/25 15:00 02/12/25 15:00 02/12/25 15:00 Oxygen Delivery Method Room Air Weight: 100.5 kg Body Mass Index (BMI) 31.8 Intake & Output: Intake and Output for Last 24 Hours 02/10/25 02/11/25 02/12/25 23:59 23:59 23:59 Intake Total 680 / 680 550 / 550 500 / 500 Output Total 1950 / 1950 900 / 900 Balance -1270 / -1270 -350 / -350 500 / 500 Lab / Micro Data 02/12/25 05:41 02/12/25 05:41 Labs: Laboratory Results - last 24 hr 02/12/25 05:41: WBC 3.9 L, RBC 3.89 L, Hgb 11.4 L, Hct 35.0 L, MCV 90.0, MCH 29.3, MCHC 32.6, RDW Std Deviation 53.9 H, RDW Coeff of Clement 16.4 H, Plt Count 216, MPV 10.8, Immature Gran % (Auto) 0.800, Neut % (Auto) 71.1 H, Lymph % (Auto) 14.9 L, [place] % (Auto) 6.7, Eos % (Auto) 5.7 H, Baso % (Auto) 0.8, Absolute Neuts (auto) 2.8, Absolute Lymphs (auto) 0.58 L, Nucleated RBC % 0, PT 43.7 H, INR 4.5 H*, Sodium 138, Potassium 3.6, Chloride 105, Carbon Dioxide 26.9, Anion Gap 6, BUN 10, Creatinine 0.66 L, Estim Creat Clear Calc 88.96, Est GFR (MDRD) Non-Af 96, BUN/Creatinine Ratio 14.9, Glucose 97, Calcium 8.6, Total Bilirubin 0.77, AST 27, ALT 48 H, Alkaline Phosphatase 165 H, Total Protein 5.4 L, Albumin 3.1 L, Globulin 2.4, Albumin/Globulin Ratio 1.3 Physical Exam Narrative alert, oriented x3 and no apparent distress General Appearance: cooperative, well kempt and well developed Orientation / Consciousness: awake, oriented to person, oriented to place and oriented to time HEENT normocephalic, head/scalp atraumatic and moist oral mucous membranes Eyes PERRL, EOMs intact bilaterally and conjunctivae normal Neck supple, no JVD, thyroid normal and no carotid bruits General: trachea midline Resp normal respiratory effort, no retractions, no use of accessory muscles and clear to auscultation bilaterally Auscultation: Negative for rales, rhonchi or wheezes Cardio no murmurs, no rub and no gallops Cardio Narrative: Heart rate and rhythm is irregular GI normal to inspection, nondistended, normoactive bowel sounds, soft to palpation, non-tender and non-distended Extremity no clubbing, cyanosis or edema Skin no rashes or lesions noted General Skin Exam: no breakdown Neuro oriented x3, CN's II-XII intact bilaterally, moves all extremities, no focal motor deficits and no sensory deficits noted Sensorium / Orientation: awake and alert Speech: speech normal Psych affect normal Assessment & Plan Assessment/Plan (1) Acute cerebrovascular accident (CVA): PLAN: Plan 1. Acute ischemic infarction involving the left yancy, posterior left frontal guallpa radiata, and bilateral occipital lobes-this suggest a cardioembolic stroke secondary to atrial fibrillation. Patient's INR today was 4.5, warfarin was held and INR will be rechecked tomorrow #2 chronic anticoagulation due to mechanical heart valve-INR will be monitored #3 essential hypertension-patient's blood pressure medication is being held at this time, blood pressure to be monitored #4 hypothyroidism-the patient is on Synthroid #5 chronic myelocytic leukemia-patient is currently on nilotiniv #6 generalized debility-patient will need placement for short-term rehab services in a rehab center, family made that decision due to the fact that he is on chemotherapy and according to the transitional care unit at [facility], they are not able to let the patient take his home chemo med, the rehab unit here will allow the patient to take his home chemo med, we are awaiting a bed in the rehab unit. Patient's family does not want him to go to the [place] rehab unit. #7 right rib pain-suspect possible rib fractures, x-rays of the right ribs will be obtained. Total clinical time spent by myself addressing the patient's medical issues, reviewing all of his data, and collaborating with patient's care team: 35 minutes Charges/Coding Visit Charges Inpatient E&M: 43942 Subs Hosp L2 NIHSS NIHSS Nursing Documentation NIHSS Nursing Documentation: NIHSS: Ischemic Stroke/TIA Start: 02/06/25 17:03 Text: For PCU Patients: NIH and Neuro Check every 4 Status: Complete hours, PRN and with change in RN caregiver. Freq: [id number] Protocol: Activity Type Activity Date Activity User E-sign Co-sign Detail Recorded Client Recorded Date Recorded By Document 02/09/25 11:38 [id number] 02/09/25 11:39 NB 02/09/25 11:38 NIH Stroke Scale [NIHSS] A score of 0 is normal or asymptomatic . Total possible score is 42. Inpatient: RN or Physician to activate a stroke alert for onset of new stroke symptoms or with NIHSS increase >/= 3 points. Following change in neurological status, NIHSS will be performed per physician order or more frequently PRN. -1a. Level of Consciousness 0 - Alert; keenly responsive -1b. LOC Questions 0 - Answers BOTH questions correctly -1c. LOC Commands 0 - Performs BOTH tasks correctly -2. Best Gaze 0 - Normal -3. Visual 0 - No visual loss -4. Facial Palsy 0 - Normal symmetrical movements -5a. Left Arm 0 - No drift; arm holds 90 ( or 45) degrees for full 10 seconds -5b. Right Arm 2 - Some effort against gravity; -6a. Left Leg 0 - No drift; leg holds 30- degree position for full 5 seconds -6b. Right Leg 2 - Some effort against gravity; -7. Limb Ataxia 1 - Present in 1 limb -8. Sensory 0 - Normal; no sensory loss -9. Best Language 1 - Mild-to- moderate aphasia; -10. Dysarthria 1 = Mild-to- moderate dysarthria; -11. Extinction and Inattention 0 - No abnormality -Total 7 Query Text:A score of 0 is normal or asymptomatic. Total possible score is 42 . ED: Notify Physician for NIHSS increase by > / = 3 points. Inpatient: RN or Physician to activate a stroke alert for NIHSS increase of > / = 3 points. Coma Scale [Assess] -Eye Opening Spontaneous -Motor Obeys Commands -Verbal Oriented [Total] -Coma Scale Total 15
--- NOTE | 2025-02-12 19:00 | RAD_ITS ---
PROCEDURE: RIBS UNIL 2V NO CXR 02/12/2025 REASON FOR EXAM: RIGHT RIB PAIN TECHNIQUE: Procedure Code: [id number] Modality: DX Procedure: RIBS UNIL 2V NO CXR COMPARISON: Right ribs four views FINDINGS: There is a fracture of the anterior margin of the right 7th, 8th, 9th, and 10th ribs which are slightly displaced. There is cortical irregularity at the right humeral head and neck junction which could represent a fracture, age-indeterminate. There is no visible pneumothorax. Sternotomy wires are noted. Atherosclerotic calcifications are visible. RAD/Ribs Unil 2V No CXR IMPRESSION: There is a fracture of the anterior margin of the right 7th, 8th, 9th, and 10th ribs which are slightly displaced. There is cortical irregularity at the right humeral head and neck junction whic h could represent a fracture, age-indeterminate. Reading Location: [facility]
[2025-02-12 22:10] VITALS: BP 140/61; PULSE 82; RESP 16; TEMP 36.6; O2SAT 95
[2025-02-13] MEDS: MELATONIN 3 MG TABLET PO (00:26)
[2025-02-13 01:31] VITALS: BMI 31.8
[2025-02-13 03:15] VITALS: BP 137/58; PULSE 64; RESP 16; TEMP 36.4; O2SAT 94
[2025-02-13 05:49] LABS: Hematocrit 34.5 % (40-54); Hemoglobin 10.9 g/dL (13.0-16.5); Immature Granulocytes Count 0.030 X10^3/uL (0.0-0.0); Mean Corp Hgb Conc 31.6 g/dL (32-36); Mean Corpuscular Volume 91.0 fL (80-94); Mean Platelet Vol. 11.1 fl (6.2-12.0); NRBC Flagged by Analyzer 0 % (0-5); POSITIVE DIFFERENTIAL YES; Platelet Count 225 K/mm3 (150-450); RBC Distribution Width CV 16.2 % (11.6-14.6); RBC Distribution Width SD 54.2 fl (35.1-43.9); Red Blood Count 3.79 M/mm3 (4.6-6.2); White Blood Count 4.2 K/mm3 (4.4-11.0)
[2025-02-13 06:05] LABS: Prothrombin Time (Protime)PT. 40.1 SECONDS (11.7-14.9)
[2025-02-13 09:02] VITALS: BP 123/70; PULSE 70; RESP 17; TEMP 36.7; O2SAT 97
[2025-02-13] MEDS: NILOTINIB HCL 150 MG 300 MG PO (09:04)
[2025-02-13] MEDS: 0.9% Saline Lock 10 ML Syringe IV (09:07)
--- NOTE | 2025-02-13 12:27 | CASEMGMT ---
Social Work SHIRA spoke with Cristine in [facility] and pt is able to be accepted later today, once a bed is available and room is cleaned. SHIRA updated physician who states pt is ready for dc today. SHIRA met with pt and discussed discharge plan and pt is agreeable to discharge today to . Phone call to pt Cyndi and the same explained. Cyndi is in agreement with discharge today, does not feel need to appeal stay in acute hospital. Cyndi appreciative that pt can stay at [facility] for post acute care. Nursing updated. Disposition: [facility] Inpatient Rehabilitation TAVON Hernandez
--- NOTE | 2025-02-13 14:36 | PCM.TXEXTCAR ---
Diet Diet Order/Speech Therapy: INPATIENT Hospital Diet / Speech Therapy Order(s) 02/07/25 10:16 Diet: Cardiac - Heart Healthy Food consistency:: Easy to Chew Liquid Consistency:: Regular/Thin Type of Dietary Supplement:: Magic Cup w/ L and D Diet Comments: NO STRAWS Speech Therapy Comments: DISTANT SUPERVISION SWALLOW GUIDELINES Routine Orders/Code Status Routine Lab Work: INR (daily for 5 days starting 02/14/25) Code Status: Full Code DC O2, CPAP, BIPAP needs Home O2 Discharge instructions: No Wound(s) Rt wrist: Wound Type: Puncture Therapies Weight Bearing: Weight bearing as tolerated Physical Therapy: Eval and Treat Occupational Therapy: Eval and Treat Speech Therapy: Eval and Treat Problem/Diagnosis (1) Acute cerebrovascular accident (CVA): Status: Acute Code(s): I63.9 - Cerebral infarction, unspecified Plan 1. Acute ischemic infarction involving the left yancy, posterior left frontal guallpa radiata, and bilateral occipital lobes-this suggest a cardioembolic stroke secondary to atrial fibrillation. Patient's INR today was 4, warfarin was held and INR will be rechecked tomorrow #2 chronic anticoagulation due to mechanical heart valve-INR will be monitored-patient's INR is presently 4, Coumadin today was held #3 essential hypertension-patient's blood pressure medication is being held at this time, blood pressure to be monitored #4 hypothyroidism-the patient is on Synthroid #5 chronic myelocytic leukemia-patient is currently on nilotiniv #6 generalized debility-patient will need placement for short-term rehab services in a rehab center, family made that decision due to the fact that he is on chemotherapy and according to the transitional care unit at [facility], they are not able to let the patient take his home chemo med, the rehab unit here will allow the patient to take his home chemo med, we are awaiting a bed in the rehab unit. Patient's family does not want him to go to the [place] rehab unit. #7 right rib pain-secondary to 4 right rib fractures-secondary to recent fall prior to coming in to this hospital, x-rays of the patient's right humerus was ordered-he has a past history of a fracture of the right humerus that was documented March of last year. Patient will receive oral pain medications if needed. Total clinical time spent by myself addressing the patient's medical issues, reviewing all of his data, and collaborating with patient's care team: 35 minutes Allergies/Procedures Done in Hospital Allergies hydrocodone bitartrate (From Vicodin) Allergy (Verified 02/06/25 15:13) Other Procedures: None Type of Care/Length of Stay Estimated LOS: Convalescent Care Less Than 30 days Type of Care Needed: Acute Rehab Rehab Potential: Good Prognosis: Good Additional Orders/Day of Discharge H&P will serve as current which was dated: 02/06/25 Day of Discharge: 02/13/25 Dietary and Speech Recommendations Dietitian Recommendations/Changes: Will continue cardiac diet with consistency/texture as per GRIEVANCE AND APPEALS COORDINATOR. Will continue magic cup w/ lunch and dinner and continue 120ml ensure plus HP 3 times per day with medpass. Trend weights as available for possible weight loss. Discharge Plan Admission Admit Date/Time: 02/07/25 12:10 Primary Reason for Your Visit: Acute ischemic stroke due to embolic reasons Attending Provider: Constantino Albarado Primary Care Provider: [facility] Consulting Providers: Jaya Patel; Jordan Cha Discharge Orders/Prescriptions Prescriptions: New acetaminophen 325 mg Tablet 650 mg PO Q6H PRN PRN (Reason: Pain 1-10 Or Fever>100.7) Qty: 0 0RF Ensure Plus High Protein 0.08 gram-1.5 kcal/mL Liquid 120 ml PO TIDCM Qty: 1 0RF sennosides-docusate sodium [Stimulant Laxative Plus] 8.6-50 mg Tablet 2 tab PO BID Qty: 1 0RF menthol [Blue Gel] 2 % Gel 1 applic topical 4X/DAY PRN PRN (Reason: Pain Score 1-10) Qty: 0 0RF nilotinib HCl [Tasigna] 150 mg Capsule 300 mg PO BID Qty: 0 0RF oxycodone 5 mg tablet 5 mg PO Q4H PRN (Reason: pain) 5 Days Qty: 1 0RF Continued atorvastatin 40 MG tablet 80 mg PO DAILY isosorbide mononitrate 30 MG tablet 30 mg PO DAILY Patient Comments: Heart allopurinol 100 MG tablet 100 mg PO DAILYCM levothyroxine 25 MCG tablet 50 mcg PO DAILY pantoprazole 40 MG tablet 40 mg PO BID Patient Comments: stomach ferrous sulfate 325 MG tablet 325 mg PO DAILY metoprolol tartrate 25 MG tablet 25 mg PO DAILY gabapentin 300 MG capsule 300 mg PO DAILY tamsulosin 0.4 mg capsule 0.4 mg PO DAILY Patient Comments: Take 1 capsule by mouth once a day clopidogrel [Plavix] 75 mg tablet 75 mg PO DAILY aspirin [Adult Aspirin Regimen] 81 mg tablet,delayed release (DR/EC) 81 mg PO DAILY lisinopril 10 mg tablet 10 mg PO DAILY nilotiniv 300 mg PO BID Changed furosemide 40 mg Tablet 40 mg PO 1XD Qty: 60 1RF Held warfarin [Jantoven] 4 MG tablet 4 mg PO DAILY Hold Instructions: Hold until 02/14/2025, based on the patient's INR on that date, this medication can be resumed Discontinued potassium chloride [K-Tab] 20 mEq tablet extended release 20 meq PO DAILY Qty: 30 2RF [facility] [Primary Care Provider, None] Disposition Disposition (needs filled in before D/C Order can be placed): Inpatient Rehab Unit/Facility
--- NOTE | 2025-02-13 14:50 | RAD_ITS ---
PROCEDURE: HUMERUS MIN 2 VIEWS 02/13/2025 REASON FOR EXAM: POSSIBLE HUMERAL HEAD FRACTURE TECHNIQUE: Procedure Code: RADHUM Modality: DX Procedure: HUMERUS MIN 2 VIEWS Laterality: Right COMPARISON: 03/22/2024 FINDINGS: BONES: Old fracture in the right humeral neck. No definite acute fracture seen. No focal osseous lesion. JOINTS: No dislocation. The glenohumeral and acromioclavicular joints are narrowed. SOFT TISSUES: The soft tissues are unremarkable. RAD/Humerus min 2 Views IMPRESSION: No definite acute fracture seen. Old right humeral neck fracture. If there is ongoing clinical suspicion for acute fracture, consider follow-up CT imaging. Reading Location: [id number]
[2025-02-13 15:20] VITALS: BP 139/57; PULSE 72; RESP 17; TEMP 36.6; O2SAT 97
--- NOTE | 2025-02-13 15:28 | DS.PCM_ITS ---
Providers Date of Admission: 02/07/25 Date of Discharge: 02/13/25 Primary Care Physician: [facility] Reason For Visit: STROKELIKE SYMPTOMS Diagnosis Discharge Diagnosis (1) Acute cerebrovascular accident (CVA): Status: Acute Code(s): I63.9 - Cerebral infarction, unspecified Plan 1. Acute ischemic infarction involving the left yancy, posterior left frontal guallap radiata, and bilateral occipital lobes-this suggest a cardioembolic stroke secondary to atrial fibrillation. Patient's INR today was 4, warfarin was held and INR will be rechecked tomorrow #2 chronic anticoagulation due to mechanical heart valve-INR will be monitored- patient's INR is presently 4, Coumadin today was held #3 essential hypertension-patient's blood pressure medication is being held at this time, blood pressure to be monitored #4 hypothyroidism-the patient is on Synthroid #5 chronic myelocytic leukemia-patient is currently on nilotiniv #6 generalized debility-patient will need placement for short-term rehab services in a rehab center, family made that decision due to the fact that he is on chemotherapy and according to the transitional care unit at [facility], they are not able to let the patient take his home chemo med, the rehab unit here will allow the patient to take his home chemo med, we are awaiting a bed in the rehab unit. Patient's family does not want him to go to the [facility] rehab unit. #7 right rib pain-secondary to 4 right rib fractures-secondary to recent fall prior to coming in to this hospital, x-rays of the patient's right humerus was ordered-he has a past history of a fracture of the right humerus that was documented March of last year. Patient will receive oral pain medications if needed. Total clinical time spent by myself addressing the patient's medical issues, reviewing all of his data, and collaborating with patient's care team: 35 minutes Medications at Discharge Home Medications warfarin 4 mg tablet (Jantoven) 4 mg PO DAILY blood thinner 04/03/16 Held on 02/13/25. Instructions: Hold until 02/14/2025, based on the patient's INR on that date, this medication can be resumed allopurinol 100 mg tablet 100 mg PO DAILYCM gout 04/04/16 atorvastatin 40 mg tablet 80 mg PO DAILY cholesterol 04/04/16 ferrous sulfate 325 mg (65 mg iron) tablet 325 mg PO DAILY supplement 04/04/16 isosorbide mononitrate 30 mg tablet,extended release 24 hr 30 mg PO DAILY chest pain 04/04/16 levothyroxine 25 mcg tablet 50 mcg PO 0600 thyroid 04/04/16 metoprolol tartrate 25 mg tablet 25 mg PO DAILY blood pressure 04/04/16 pantoprazole 40 mg tablet,delayed release 40 mg PO BID reflux 04/04/16 gabapentin 300 mg capsule 300 mg PO DAILY nerve pain 01/10/20 tamsulosin 0.4 mg capsule 0.4 mg PO DAILY prostate 07/09/22 aspirin 81 mg tablet,delayed release (Adult Aspirin Regimen) 81 mg PO DAILY Heart health 02/06/25 clopidogrel 75 mg tablet (Plavix) 75 mg PO DAILY Blood thinner 02/06/25 lisinopril 10 mg tablet 10 mg PO DAILY BP 02/06/25 acetaminophen 325 mg tablet 650 mg (2 x 325 mg) PO Q6H PRN PRN Pain 1-10 Or Fever>100.7 #0 tabs 02/13/25 food supplemt, lactose-reduced 0.08 gram-1.5 kcal/mL oral liquid (Ensure Plus High Protein) 120 ml PO TIDCM supplement #1 mL 02/13/25 Held on 02/13/25. Instructions: Duplicate Order furosemide 40 mg tablet 40 mg PO DAILY fluid retention 02/13/25 menthol 2 % topical gel (Blue Gel) 1 applic topical 4X/DAY PRN PRN Pain Score 1- 10 #0 grams 02/13/25 nilotinib HCl 150 mg capsule (Tasigna) 300 mg (2 x 150 mg) PO BID CML #0 caps 02/13/25 oxycodone 5 mg tablet 5 mg PO Q4H PRN pain 5 days #1 TAB 02/13/25 sennosides 8.6 mg-docusate sodium 50 mg tablet (Stimulant Laxative Plus) 2 tab PO BID stool softner #1 TAB 02/13/25 Hospital Course Operations None Procedures 2-D Echocardiogram Summary of Care Provided Minutes Spent on Discharge: 32 Hospital Course: This 79-year-old white male was seen in the emergency room [facility] strokelike symptoms. Patient's history was significant for having a mechanical aortic valve replacement, he is in chronic A-fib. Patient recently underwent a heart cath at the [facility], patient was stable and was okay for discharge home but when his came to pick him up he had an onset of right sided weakness and fell onto his right side on the car and it took multiple family members to get him into the car. Patient had continued right lower extremity weakness and balance issues at home and was brought to the ER for further evaluation. Workup in the emergency room included CT of the brain and a CT of the head and neck which was unremarkable. He was evaluated by teleneurology and he had a NIH score of 7 concerning for acute CVA. Hospitalist was contacted for admission, he was admitted to PCU and underwent an echocardiogram which showed no evidence of thrombus, MRI of the brain scan showed scattered small foci of acute infarction left yancy, posterior left frontal guallpa radiata, and bilateral occipital lobe white matter. There is evidence of chronic infarct with encephalomalacia and gliosis involving the left frontal region. Patient was seen by PT and OT, it was felt he would benefit from inpatient skilled services. Arranges were made for the patient to go to TCU for skilled services. Patient underwent a right rib study while in the hospital which showed multiple rib fractures likely from his fall against the car. On 02/13/2025, patient was seen and examined:alert, oriented x3 and no apparent distress General Appearance: cooperative, well kempt and well developed Orientation / Consciousness: awake, oriented to person, oriented to place and oriented to time HEENT normocephalic, head/scalp atraumatic and moist oral mucous membranes Eyes PERRL, EOMs intact bilaterally and conjunctivae normal Neck supple, no JVD, thyroid normal and no carotid bruits General: trachea midline Resp normal respiratory effort, no retractions, no use of accessory muscles and clear to auscultation bilaterally Auscultation: Negative for rales, rhonchi or wheezes Cardio no murmurs, no rub and no gallops Cardio Narrative: Heart rate and rhythm is irregular GI normal to inspection, nondistended, normoactive bowel sounds, soft to palpation, non-tender and non-distended Extremity no clubbing, cyanosis or edema Skin no rashes or lesions noted General Skin Exam: no breakdown Neuro oriented x3, CN's II-XII intact bilaterally, moves all extremities, no focal motor deficits and no sensory deficits noted Sensorium / Orientation: awake and alert Speech: speech normal Psych affect normal Patient was transferred to TCU in stable condition on 02/13/2025 Weight / BMI Weight Weight: 100.5 kg Body Mass Index (BMI) 31.8 ABG / Lab / Microbiology Data 02/13/25 05:20 02/12/25 05:41 Laboratory: Laboratory Results - last 24 hr 02/13/25 05:20: WBC 4.2 L, RBC 3.79 L, Hgb 10.9 L, Hct 34.5 L, MCV 91.0, MCH 28.8, MCHC 31.6 L, RDW Std Deviation 54.2 H, RDW Coeff of Clement 16.2 H, Plt Count 225, MPV 11.1, Immature Gran % (Auto) 0.700, Neut % (Auto) 76.1 H, Lymph % (Auto) 12.2 L, [place] % (Auto) 5.0, Eos % (Auto) 5.5 H, Baso % (Auto) 0.5, Absolute Neuts (auto) 3.2, Absolute Lymphs (auto) 0.51 L, Nucleated RBC % 0, PT 40.1 H, INR 4.0 H* Radiography Diagnostic Testing: Radiology Impression Ribs X-Ray 02/12/25 19:00 IMPRESSION: There is a fracture of the anterior margin of the right 7th, 8th, 9th, and 10th ribs which are slightly displaced. There is cortical irregularity at the right humeral head and neck junction which could represent a fracture, age-indeterminate. Reading Location: [facility] X-Ray 02/13/25 14:50 IMPRESSION: No definite acute fracture seen. Old right humeral neck fracture. If there is ongoing clinical suspicion for acute fracture, consider follow-up CT imaging. Reading Location: [id number] D/C Instructions DC O2, CPAP, BIPAP Needs Home O2 Discharge instructions: No Meaningful Use Info Meaningful Use Meaningful Use Diagnoses (Choose all that apply): Ischemic CVA CVA Therapy Assessed for PT,OT and/or ST?: Yes Ischemic Stroke Antithrombotic order at d/c?: Yes Dx of Atrial fib/flutter?: Yes Anticoagulant at discharge?: Yes Statins at discharge?: Yes Primary Dx Acute Ischemic CVA?: Yes IV thrombolytic ordered during stay?: No Reason IV thrombolytic not ordered: Treatment not Indicated Discharge Plan Admission Admit Date/Time: 02/07/25 12:10 Primary Reason for Your Visit: Acute ischemic stroke due to embolic reasons Attending Provider: Constantino Albarado [facility] Care Provider[facility] Consulting Providers: Jaya Patel; Jordan Cha Discharge Orders/Prescriptions Prescriptions: New acetaminophen 325 mg Tablet 650 mg PO Q6H PRN PRN (Reason: Pain 1-10 Or Fever>100.7) Qty: 0 0RF Ensure Plus High Protein 0.08 gram-1.5 kcal/mL Liquid 120 ml PO TIDCM Qty: 1 0RF sennosides-docusate sodium [Stimulant Laxative Plus] 8.6-50 mg Tablet 2 tab PO BID Qty: 1 0RF menthol [Blue Gel] 2 % Gel 1 applic topical 4X/DAY PRN PRN (Reason: Pain Score 1-10) Qty: 0 0RF nilotinib HCl [Tasigna] 150 mg Capsule 300 mg PO BID Qty: 0 0RF oxycodone 5 mg tablet 5 mg PO Q4H PRN (Reason: pain) 5 Days Qty: 1 0RF Continued atorvastatin 40 MG tablet 80 mg PO DAILY isosorbide mononitrate 30 MG tablet 30 mg PO DAILY Patient Comments: Heart allopurinol 100 MG tablet 100 mg PO DAILYCM levothyroxine 25 MCG tablet 50 mcg PO 0600 pantoprazole 40 MG tablet 40 mg PO BID Patient Comments: stomach ferrous sulfate 325 MG tablet 325 mg PO DAILY metoprolol tartrate 25 MG tablet 25 mg PO DAILY gabapentin 300 MG capsule 300 mg PO DAILY tamsulosin 0.4 mg capsule 0.4 mg PO DAILY clopidogrel [Plavix] 75 mg tablet 75 mg PO DAILY aspirin [Adult Aspirin Regimen] 81 mg tablet,delayed release (DR/EC) 81 mg PO DAILY lisinopril 10 mg tablet 10 mg PO DAILY Held warfarin [Jantoven] 4 MG tablet 4 mg PO DAILY Hold Instructions: Hold until 02/14/2025, based on the patient's INR on that date, this medication can be resumed Discontinued furosemide 40 mg Tablet 40 mg PO BIDLX Qty: 60 1RF potassium chloride [K-Tab] 20 mEq tablet extended release 20 meq PO DAILY Qty: 30 2RF No Action furosemide 40 mg Tablet 40 mg PO DAILY [facility]errals [facility] [Primary Care Provider, None] Disposition Disposition (needs filled in before D/C Order can be placed): Inpatient Rehab Unit/Facility Charges/Coding Visit Charges Inpatient E&M: 52930 Disch Hosp >30min
--- NOTE | 2025-02-13 15:42 | PHA.DC_ITS ---
Pharmacy MS Med Reconciliation Pharmacy Service has performed discharge medication reconciliation for this patient. The patient's discharge medication list was reviewed for discrepancies and discrepancies were resolved. Medications at Discharge Home Medications warfarin 4 mg tablet (Jantoven) 4 mg PO DAILY blood thinner 04/03/16 Held on 02/13/25. Instructions: Hold until 02/14/2025, based on the patient's INR on that date, this medication can be resumed allopurinol 100 mg tablet 100 mg PO DAILYCM gout 04/04/16 atorvastatin 40 mg tablet 80 mg PO DAILY cholesterol 04/04/16 ferrous sulfate 325 mg (65 mg iron) tablet 325 mg PO DAILY supplement 04/04/16 isosorbide mononitrate 30 mg tablet,extended release 24 hr 30 mg PO DAILY chest pain 04/04/16 levothyroxine 25 mcg tablet 50 mcg PO DAILY thyroid 04/04/16 metoprolol tartrate 25 mg tablet 25 mg PO DAILY blood pressure 04/04/16 pantoprazole 40 mg tablet,delayed release 40 mg PO BID reflux 04/04/16 gabapentin 300 mg capsule 300 mg PO DAILY nerve pain 01/10/20 tamsulosin 0.4 mg capsule 0.4 mg PO DAILY prostate 07/09/22 aspirin 81 mg tablet,delayed release (Adult Aspirin Regimen) 81 mg PO DAILY 02/06/25 clopidogrel 75 mg tablet (Plavix) 75 mg PO DAILY 02/06/25 lisinopril 10 mg tablet 10 mg PO DAILY 02/06/25 nilotiniv 300 mg PO BID cml 02/07/25 acetaminophen 325 mg tablet 650 mg (2 x 325 mg) PO Q6H PRN PRN Pain 1-10 Or Fever>100.7 #0 tabs 02/13/25 food supplemt, lactose-reduced 0.08 gram-1.5 kcal/mL oral liquid (Ensure Plus High Protein) 120 ml PO TIDCM #1 mL 02/13/25 furosemide 40 mg tablet 40 mg PO 1XD #60 tabs 02/13/25 menthol 2 % topical gel (Blue Gel) 1 applic topical 4X/DAY PRN PRN Pain Score 1- 10 #0 grams 02/13/25 nilotinib HCl 150 mg capsule (Tasigna) 300 mg (2 x 150 mg) PO BID #0 caps 02/13/25 oxycodone 5 mg tablet 5 mg PO Q4H PRN pain 5 days #1 TAB 02/13/25 sennosides 8.6 mg-docusate sodium 50 mg tablet (Stimulant Laxative Plus) 2 tab PO BID #1 TAB 02/13/25
--- NOTE | 2025-02-13 15:44 | NURSING ---
Report called to VASILIY Perez on [facility] inpatient rehab unit.
== END 2025-02-13 15:58 | DRG 65 ==
LOC: ED 16:25 → PCU 16:42
PROVIDERS: Internal Medicine; Admitting Provider Hospitalist; Emergency Provider Emergency Medicine; Visit Provider Internal Medicine
DX: I63.9 Cerebral infarction, unspecified (principal); G81.91 Hemiplegia, unspecified affecting right dominant side; C93.10 Chronic myelomonocytic leukemia not having achieved remission; S22.41XA Multiple fractures of ribs, right side, initial encounter for closed fracture; N13.8 Other obstructive and reflux uropathy; I48.20 Chronic atrial fibrillation, unspecified; I50.32 Chronic diastolic (congestive) heart failure; G62.9 Polyneuropathy, unspecified; E03.9 Hypothyroidism, unspecified; I11.0 Hypertensive heart disease with heart failure; Z95.4 Presence of other heart-valve replacement; E66.811 Obesity, class 1; I25.10 Atherosclerotic heart disease of native coronary artery without angina pectoris; E78.00 Pure hypercholesterolemia, unspecified; K21.9 Gastro-esophageal reflux disease without esophagitis; M10.9 Gout, unspecified; W18.39XA Other fall on same level, initial encounter; Z79.02 Long term (current) use of antithrombotics/antiplatelets; Z79.899 Other long term (current) drug therapy; Z79.01 Long term (current) use of anticoagulants; Z95.5 Presence of coronary angioplasty implant and graft; Z79.82 Long term (current) use of aspirin; Z87.891 Personal history of nicotine dependence; N40.1 Benign prostatic hyperplasia with lower urinary tract symptoms; R53.81 Other malaise; Z79.891 Long term (current) use of opiate analgesic; Z79.890 Hormone replacement therapy; Z90.49 Acquired absence of other specified parts of digestive tract; Z68.31 Body mass index [BMI] 31.0-31.9, adult; R29.705 NIHSS score 5; R79.89 Other specified abnormal findings of blood chemistry; Z92.21 Personal history of antineoplastic chemotherapy
CPT/HCPCS: 36415; 70450; 70496; 70498; 70551; 71100; 73060; 80048; 80053; 80061; 82962; 83036; 84484; 85025; 85027; 85610; 85730; 92507; 92523; 92526; 92610; 93005; 94762; 97110; 97116; 97150; 97162; 97166; 97530; 97535; 97802; 99285; Q9967; A4216

== ENCOUNTER 2025-02-13 16:17 | Inpatient (IN) | payer MEDICARE, SELFPAY ==
[2025-02-13 16:39] VITALS: BMI 30.4
[2025-02-13 17:30] VITALS: BP 147/53; PULSE 67; RESP 17; TEMP 36.6; O2SAT 98
--- NOTE | 2025-02-13 19:23 | EX.PCM.HP.RE ---
HPI - General General Date of Admission: 02/13/25 Date of Service: 02/13/25 Chief Complaint: Here for 3 hours daily rehabilitation. HPI Narrative EDDIE KHALIL, is a 79 M who presents with followin02/05/2025 Left heart catheterization with stent, [facility] at [facility], stroke symptoms started shortly after. Patient opted on going home rather than returning to hospital. 02/06/2025 [facility] ED fatigue. Presumed stroke, right sided weakness, history of previous stroke. On coumadin for prosthetic metallic aortic valve. LAD stent yesterday, unable to get out of car. NIHSS 6, outside [facility] window. CT head negative, CTA head/neck negative LVO. 02/06/2025 Admit [facility]. PT/OT/ST/CM, Neurology consult, MRI brain, coumadin, plavix for stroke. Elevated troponin 2/2 recent heart cath with stent. 02/07/2025 Right sided weakness, speech slower. MRI brain showed multiple left sided strokes, probably cardioembolic. PT/OT/ST/CM. Coumadin for metallic aortic valve, plavix for lad stent 2 days prior. 02/08/2025 PT/OT/CM. A1c 4.9, INR 1.4, adjust warfarin with Lovenox bridge for metallic aortic valve. 02/09/2025 No acute events overnight, no BM for 3 to 4 days, speech baseline. INR 1.7, warfarin increased to 10mg daily. Elevated troponin 2/2 recent heart cath. 02/10/2025 Await Pre-CERT for IRU. 02/11/2025 On Nilotinib for CML, oncology recommends patient continues this drug. 02/12/2025 Right chest pain, imaging shows right rib fractures x 4, impacted right humeral fracture, chronic. Take home supply of Nilotinib for CML while on IRU. Aspirin, Plavix, coumadin thru 03/19/2025, then stop Aspirin, continue Plavix, coumadin for CAD s/p stent, metallic aortic valve. 02/13/2025 Admit to IRU for 3 hours daily rehabilitation, strengthening, prior to discharge home with . [facility] Medical History (Updated 02/13/25 @ 19:[address] Anthony Myers MD) CML (chronic myelocytic leukemia) Acute UTI Weakness Wears hearing aid Thyroid disease High cholesterol Excessive bleeding Back pain Migraine headache Stroke/cerebrovascular accident History of IBS Gastric reflux Former smoker Sleep apnea Shortness of breath on exertion Leg cramps History of pain when walking History of edema History of echocardiogram History of stress test Cardiology follow-up encounter FH: bilateral hip replacements Home Medications ?Medication ?Instructions ?Recorded ?Last Taken ?Type warfarin 4 mg tablet (Jantoven) 4 mg PO DAILY blood thinner 04/03/16 01/08/23 History Held on 02/13/25. Instructions: Hold until 02/14/2025, based on the patient's INR on that date, this medication can be resumed allopurinol 100 mg tablet 100 mg PO DAILYCM gout 04/04/16 02/13/25 History atorvastatin 40 mg tablet 80 mg PO DAILY cholesterol 04/04/16 02/13/25 History ferrous sulfate 325 mg (65 mg 325 mg PO DAILY supplement 04/04/16 02/13/25 History iron) tablet isosorbide mononitrate 30 mg 30 mg PO DAILY chest pain 04/04/16 12/18/24 History tablet,extended release 24 hr levothyroxine 25 mcg tablet 50 mcg PO 0600 thyroid 04/04/16 02/13/25 History metoprolol tartrate 25 mg tablet 25 mg PO DAILY blood pressure 04/04/16 12/18/24 History pantoprazole 40 mg tablet,delayed 40 mg PO BID reflux 04/04/16 02/13/25 History release gabapentin 300 mg capsule 300 mg PO DAILY nerve pain 01/10/20 02/13/25 History tamsulosin 0.4 mg capsule 0.4 mg PO DAILY prostate 07/09/22 02/13/25 History aspirin 81 mg tablet,delayed 81 mg PO DAILY Heart health 02/06/25 Unknown History release (Adult Aspirin Regimen) clopidogrel 75 mg tablet (Plavix) 75 mg PO DAILY Blood thinner 02/06/25 02/13/25 History lisinopril 10 mg tablet 10 mg PO DAILY BP 02/06/25 Unknown History acetaminophen 325 mg tablet 650 mg (2 x 325 mg) PO Q6H PRN PRN 02/13/25 Unknown Rx Pain 1-10 Or Fever>100.7 #0 tabs food supplemt, lactose-reduced 120 ml PO TIDCM supplement #1 mL 02/13/25 Unknown Rx 0.08 gram-1.5 kcal/mL oral liquid (Ensure Plus High Protein) Held on 02/13/25. Instructions: Duplicate Order furosemide 40 mg tablet 40 mg PO DAILY fluid retention 02/13/25 Unknown History menthol 2 % topical gel (Blue Gel) 1 applic topical 4X/DAY PRN PRN 02/13/25 Unknown Rx Pain Score 1-10 #0 grams nilotinib HCl 150 mg capsule 300 mg (2 x 150 mg) PO BID CML #0 02/13/25 02/13/25 Rx (Tasigna) caps oxycodone 5 mg tablet 5 mg PO Q4H PRN pain 5 days #1 TAB 02/13/25 Unknown Rx sennosides 8.6 mg-docusate sodium 2 tab PO BID stool softner #1 TAB 02/13/25 Unknown Rx 50 mg tablet (Stimulant Laxative Plus) Allergy/AdvReac Type Severity Reaction Status Date / Time hydrocodone bitartrate (From Allergy Other Verified 02/06/25 15:13 Vicodin) Surgical History (Updated 02/13/25 @ 19:[address] Anthony Myers MD) History of total right hip replacement History of total left hip replacement History of heart surgery History of cardiac catheterization History of coronary artery stent placement Hx laparoscopic cholecystectomy Hx of aortic valve replacement History of open heart surgery Social History (Updated 02/13/25 @ 19:[address] Anthony Myers MD) household members: spouse Smoking Status: Former smoker alcohol intake: never substance use type: does not use ROS Constitutional Constitutional: Reports weakness; Denies chills, fever(s) or weight gain ENT HEENT: Denies headache(s), nasal congestion or nasal discharge Cardiovascular Cardiovascular: Denies chest pain or palpitations Respiratory/Chest Respiratory/Chest: Denies cough, excessive phlegm production or shortness of breath with exertion Gastrointestinal Gastrointestinal: Denies abdominal pain, nausea or vomiting Genitourinary Genitourinary: Denies dysuria Musculoskeletal Musculoskeletal: Denies joint pain or joint swelling Integumentary Integumentary: Denies rash or wounds Neurologic Neurologic: Denies focal weakness, numbness or tingling Psychiatric Psychiatric: Denies anxiety, auditory hallucinations, depression, homicidal ideation or suicidal ideation Vital Signs Vital Signs Vital Signs: 02/13/25 17:30 Temperature 97.8 F Temperature Source Temporal Pulse Rate 67 Respiratory Rate 17 Blood Pressure 147/53 H Blood Pressure Mean 84 Blood Pressure Source Monitor Blood Pressure Position Semi-Fowlers Blood Pressure Location Left Arm Pulse Ox 98 Oxygen Delivery Method Room Air Weight Weight: 96.36 kg Body Mass Index (BMI) 30.4 Indicators for Scoring Admitted with or Primary Diagnosis of CVA/Stroke: Yes Hx of CVA/Stroke: Yes Modified Meghan Score MRS Score at time of Evaluation: 3-Moderate disability NIHSS NIHSS 1a. Level of Consciousness: 0 - Alert; keenly responsive 1b. LOC Questions: 0 - Answers BOTH questions correctly 1c. LOC Commands: 0 - Performs BOTH tasks correctly 2. Best Gaze: 0 - Normal 3. Visual: 0 - No visual loss 4. Facial Palsy: 0 - Normal symmetrical movements 5a. Left Arm: 0 - No drift; arm holds 90 (or 45) degrees for full 10 seconds 5b. Right Arm: 1 - Drift; arm drifts downward but doesn?t hit the bed 6a. Left Le - No drift; leg holds 30-degree position for full 5 seconds 6b. Right Le - Drift; leg falls by the end of 5-seconds, but does not hit bed 7. Limb Ataxia: 0 - Absent 8. Sensory: 0 - Normal; no sensory loss 9. Best Language: 0 - No aphasia; normal 10. Dysarthria: 1 = [id number] dysarthria; 11. Extinction and Inattention: 0 - No abnormality Total: 3 Physical Exam Const alert General Appearance: cooperative HEENT normocephalic Eyes PERRL and EOMs intact bilaterally Neck supple, no JVD and no carotid bruits Resp normal respiratory effort, normal air movement and clear to auscultation bilaterally Cardio regular rate and regular rhythm GI normal to inspection, nondistended, normoactive bowel sounds, non-tender and non-distended Extremity normal capillary refill General Extremity: Negative for edema Skin no rashes or lesions noted General Skin Exam: no breakdown Neuro Neuro Narrative: Right hemiparesis. Speech: speech abnormal Details: Positive for slurred Psych affect normal Appearance: appropriate Assessment & Plan Assessment/Plan (1) Debility: (2) Left sided cerebral hemisphere cerebrovascular accident: (3) Right hemiparesis: (4) Coronary artery disease status post coronary stent insertion: (5) Multiple rib fractures: (6) Hx of aortic valve replacement, mechanical: (7) CML (chronic myelocytic leukemia): (8) Essential (primary) hypertension: (9) Osteoarthritis: QUALIFIERS: Osteoarthritis location: unspecified site Osteoarthritis type: unspecified Qualified Code(s): M19.90 - Unspecified osteoarthritis, unspecified site (10) Gout: (11) Hyperlipidemia: (12) Iron deficiency anemia: (13) Hypothyroidism: (14) GERD (gastroesophageal reflux disease): (15) Neuropathic pain: (16) BPH (benign prostatic hyperplasia): (17) Hypokalemia: PLAN: Plan 79 year old male with below past medical significant for recent LAD stent, hospitalized for left stroke, right boby, complicated by multiple right rib fractures 2/2 fall, mechanical aortic valve, CML, admitted to IRU for 3 hours daily rehabilitation, strengthening, prior to discharge home with . Debility - PT/OT/ST. Pain - Tylenol 1000mg q6 prn pain (1-5), Oxycodone 5mg q4 prn pain (6-10). Bowel - senna/colace 2 tablets bid, MOM 30mL po x 1 prn, Dulcolax 10mg pr x 1 prn. DVT prophylaxis - Warfarin. Gout - Allopurinol 100mg daily. Stroke - Aspirin 81mg daily thru 03/19/2025, Plavix 75mg daily, warfarin. Hyperlipidemia - Atorvastatin 80mg qhs. CAD s/p LAD stent - Metoprolol 25mg daily, Lisinopril 10mg daily, Isosorbide MN 30mg daily, Plavix 75mg daily thru 02/05/2026, Aspirin 81mg daily thru 03/19/2025. Mechanical aortic valve - INR 4.0, hold Warfarin 4mg daily, daily INR. Nutrition - Ensure Plus 120mL tidcm. Iron deficiency anemia - Ferrous sulfate 325mg daily. Chronic HFpEF - Metoprolol 25mg daily, Isorobide MN daily, Lisinopril 10mg daily, Furosemide 40mg daily. Neuropathic pain - Gabapentin 300mg daily. Hypothyroidism - Levothyroxine 50mcg daily, Skin irritation - Calmoseptine topical 4x/day. CML - Tasigna 300mg bid. GERD - Pantoprazole 40mg bid. BPH - Tamsulosin 0.4mg daily.
[2025-02-13] MEDS: NILOTINIB HCL 150 MG 300 MG PO (20:28)
[2025-02-14 06:00] VITALS: BP 159/64; PULSE 65; RESP 18; TEMP 36.6; O2SAT 95
[2025-02-14 07:33] LABS: Hematocrit 34.3 % (40-54); Hemoglobin 11.1 g/dL (13.0-16.5); Immature Granulocytes Count 0.030 X10^3/uL (0.0-0.0); Mean Corp Hgb Conc 32.4 g/dL (32-36); Mean Corpuscular Volume 90.5 fL (80-94); Mean Platelet Vol. 11.3 fl (6.2-12.0); NRBC Flagged by Analyzer 0 % (0-5); Platelet Count 219 K/mm3 (150-450); RBC Distribution Width CV 15.9 % (11.6-14.6); RBC Distribution Width SD 53.2 fl (35.1-43.9); Red Blood Count 3.79 M/mm3 (4.6-6.2); White Blood Count 3.8 K/mm3 (4.4-11.0)
[2025-02-14 07:52] LABS: Magnesium 2.0 mg/dL (1.5-2.2)
[2025-02-14 07:56] LABS: AST(SGOT) 44 U/L (<=37); Alanine Aminotransfer ALT/SGPT 78 U/L (<=46); Albumin, Serum 2.9 g/dL (3.4-4.8); Alkaline Phosphatase 166 U/L (40-129); Anion Gap 8 (5-15); BUN 8 mg/dL (4-19); BUN/Creat Ratio 14.9 RATIO (10-20); Calcium,Total 8.4 mg/dL (7.6-11.0); Carbon Dioxide 23.6 mmol/L (21.0-32.0); Chloride 105 mmol/L (98-108); Estimated Creatinine Clearance 87.20 ml/min (50-250); Globulin 2.4 g/dL (2.2-4.2); Glucose 99 mg/dL (70-99); Potassium 4.1 mmol/L (3.3-5.1)
--- NOTE | 2025-02-14 08:02 | RAD_ITS ---
PROCEDURE: RAD/Chest PA and Lateral
[2025-02-14 08:06] VITALS: PULSE 65
[2025-02-14] MEDS: Aspirin E.C. 81 MG Tablet PO (08:06)
[2025-02-14 08:07] LABS: Prothrombin Time (Protime)PT. 33.7 SECONDS (11.7-14.9)
[2025-02-14] MEDS: Senna/Docusate Sodium 1 Tablet 2 TABLET PO (08:07)
[2025-02-14] MEDS: NILOTINIB HCL 150 MG 300 MG PO ×2 (08:08→20:59)
--- NOTE | 2025-02-14 08:08 | EX.PCM.PN.RE ---
Subjective Subjective Patient seen, examined. Nursing noted crackles in lungs, Cough productive of clear sputum, trouble sleeping. Patient working with OT this AM, and eating his breakfast, no apparent distress. Objective Data Objective Data Vital Signs: Vital Signs Temp Pulse Resp BP Pulse Ox O2 Del Method 97.9 F 65 18 159/64 H 95 Room Air 02/14/25 06:00 02/14/25 06:00 02/14/25 06:00 02/14/25 06:00 02/14/25 06:00 02/14/25 06:00 Oxygen Delivery Method Room Air Weight: 96.36 kg Body Mass Index (BMI) 30.4 Intake & Output: Intake and Output for Last 24 Hours 02/12/25 02/13/25 02/14/25 23:59 23:59 23:59 Intake Total 350 / 350 100 / 100 Output Total 400 / 400 Balance -50 / -50 100 / 100 Lab / Micro Data 02/14/25 07:05 02/14/25 07:05 Labs: Laboratory Results - last 24 hr 02/14/25 07:05: WBC 3.8 L, RBC 3.79 L, Hgb 11.1 L, Hct 34.3 L, MCV 90.5, MCH 29.3, MCHC 32.4, RDW Std Deviation 53.2 H, RDW Coeff of Clement 15.9 H, Plt Count 219, MPV 11.3, Immature Gran % (Auto) 0.800, Neut % (Auto) 69.0, Lymph % (Auto) 18.3 L, Dewitt % (Auto) 6.9, Eos % (Auto) 4.5, Baso % (Auto) 0.5, Absolute Neuts (auto) 2.6, Absolute Lymphs (auto) 0.69 L, Nucleated RBC % 0, PT 33.7 H, INR 3.2, Sodium 136, Potassium 4.1, Chloride 105, Carbon Dioxide 23.6, Anion Gap 8, BUN 8, Creatinine 0.57 L, Estim Creat Clear Calc 87.20, Est GFR (MDRD) Non-Af 100, BUN/Creatinine Ratio 14.9, Glucose 99, Calcium 8.4, Phosphorus 2.6 L, Magnesium 2.0, Total Bilirubin 0.93, AST 44 H, ALT 78 H, Alkaline Phosphatase 166 H, Total Protein 5.3 L, Albumin 2.9 L, Globulin 2.4, Albumin/Globulin Ratio 1.2 Indicators for Scoring Admitted with or Primary Diagnosis of CVA/Stroke: Yes Hx of CVA/Stroke: Yes Modified Portland Score MRS Score at time of Evaluation: 3-Moderate disability Physical Exam Const alert General Appearance: cooperative HEENT normocephalic Eyes PERRL and EOMs intact bilaterally Neck supple, no JVD and no carotid bruits Resp normal respiratory effort, normal air movement and clear to auscultation bilaterally Cardio regular rate and regular rhythm GI normal to inspection, nondistended, normoactive bowel sounds, non-tender and non-distended Extremity normal capillary refill General Extremity: Negative for edema Skin no rashes or lesions noted General Skin Exam: no breakdown Neuro Neuro Narrative: Right hemiparesis. Speech: speech abnormal Details: Positive for slurred Psych affect normal Appearance: appropriate Assessment & Plan Assessment/Plan (1) Debility: (2) Left sided cerebral hemisphere cerebrovascular accident: (3) Right hemiparesis: (4) Coronary artery disease status post coronary stent insertion: (5) Multiple rib fractures: (6) Hx of aortic valve replacement, mechanical: (7) CML (chronic myelocytic leukemia): (8) Essential (primary) hypertension: (9) Osteoarthritis: QUALIFIERS: Osteoarthritis location: unspecified site Osteoarthritis type: unspecified Qualified Code(s): M19.90 - Unspecified osteoarthritis, unspecified site (10) Gout: (11) Hyperlipidemia: (12) Iron deficiency anemia: (13) Hypothyroidism: (14) GERD (gastroesophageal reflux disease): (15) Neuropathic pain: (16) BPH (benign prostatic hyperplasia): (17) Hypokalemia: PLAN: Plan 79 year old male with below past medical significant for recent LAD stent, hospitalized for left stroke, right boby, complicated by multiple right rib fractures 2/2 fall, mechanical aortic valve, CML, admitted to IRU for 3 hours daily rehabilitation, strengthening, prior to discharge home with . Debility - PT/OT/ST. Pain - Tylenol 1000mg q6 prn pain (1-5), Oxycodone 5mg q4 prn pain (6-10). Bowel - senna/colace 2 tablets bid, MOM 30mL po x 1 prn, Dulcolax 10mg pr x 1 prn. DVT prophylaxis - Warfarin. Cough - order Chest X-ray. Insomnia - add Melatonin 3mg qhs prn. Gout - Allopurinol 100mg daily. Stroke - Aspirin 81mg daily thru 03/19/2025, Plavix 75mg daily, warfarin. Hyperlipidemia - Atorvastatin 80mg qhs. CAD s/p LAD stent - Metoprolol 25mg daily, Lisinopril 10mg daily, Isosorbide MN 30mg daily, Plavix 75mg daily thru 02/05/2026, Aspirin 81mg daily thru 03/19/2025. Mechanical aortic valve - INR 4.0, hold Warfarin 4mg daily, daily INR. Nutrition - Ensure Plus 120mL tidcm. Iron deficiency anemia - Ferrous sulfate 325mg daily. Chronic HFpEF - Metoprolol 25mg daily, Isorobide MN daily, Lisinopril 10mg daily, Furosemide 40mg daily. Neuropathic pain - Gabapentin 300mg daily. Hypothyroidism - Levothyroxine 50mcg daily, Skin irritation - Calmoseptine topical 4x/day. CML - Tasigna 300mg bid. GERD - Pantoprazole 40mg bid. BPH - Tamsulosin 0.4mg daily.
--- NOTE | 2025-02-14 08:13 | NURSING ---
This RN is aware of Vitals that were taken this morning around 6am.
--- NOTE | 2025-02-14 14:00 | REHABEVAL_ITS ---
Admission Information
--- NOTE | 2025-02-14 14:00 | PCM.RU.PYE ---
Admission Information Primary Diagnosis:: Stroke. Status Changes from Prescreening?: No changes Identified Actual Problem List:: Falls, Pain, ALteration in Cmfrt, Alteration in Sleep, Mobility Impaired, Self Care Deficit, Ineffective Communication, Know.Dfct/Disease Process, Know.Dfct of Medicaitons and Alteration-Leisure Activ. Potential Problem List:: DVT, Bleeding, Infection, UTI, Aspiration, Falls, Skin Integrity and Depression Risk of Complications DVT: LMWH, MARYANNE Hose and Sequential Compression Device Bleeding: Monitor Lab Values, Nursing to Teach Precautions for anti-coagulation therapy., Wound, if applicable, to be assessed every shift. and Stroke patients assessed for lethargy or change in status. Infection: Clinical Staff to Monitor for S/S of infection: and S/S of infection include fever, redness, warmth, etc. Urinary Tract Infection: Monitor for frequency, burning, discomfort, or incontinence. and Nursing will obtain urine sample for urinalysis and C&S when ordered. Aspiration: Clinical staff will monitor for coughing, drooling, congestion., Speech will evaluate swallowing and dsyphasia. and Nursing will monitor patient swallowing during meals. Falls: Patient will be evaluated for Fall Precautions and Patient will be placed on Fall Precautions as indicated per protocol. Skin Breakdown: Nursing will assess skin daily using assessment tool. and Nursing will place on Skin Breakdown Precautions as indicated. Pain: Clinical staff will assess patient's pain level per protocol., Medications will be given, if needed, and the pain level reassessed. and Other methods: Massage, distraction, decrease stimulus, etc. used PRN. Plan of Care Patient requires physician specializing in physical medicine and rehab oversight to provide close medical supervision of rehab issues including: Pain Management, Sleep Problems, Bowel and Bladder, Medical and co-morbidity Management, DVT prophylaxis, Rehabilitation Leadership and Coordination of treatment team Patient needs Physical Therapy: For a minimum of 1 hour and At least 5 out of 7 days Patient needs Physical Therapy to improve:: Mobility, Strengthening, Transfers, Stretching, ROM, Endurance, Stairs, Gait and Balance Patient needs Occupational Therapy: For a minimum of 1 hour and At least 5 out of 7 days Patient needs Occupational Therapy to improve ADL's incl.: Eating, Grooming, Bathing, Dressing, Toileting, Toilet transfers, Community Reintegration, Higher functioning activities, Household tasks, Adaptive Equipment, Splinting and Other activities as determined Patient requires speech therapy: For a minimum of 1 hour and At least 5 out of 7 days Patient requires speech therapy for: Swallowing, Cognition, Language Skills and Compensatory Strategies Patient requires 24/ Rehabilitation Nursing for: Pain Issues, Identifying and preventing risk factors, Monitoring and reporting current medical conditions, Assisting with ambulation, transfer, and all ADL's, Teaching patients about disease process and medications, Family teaching, Providing safe environment, Bowel and Bladder Issues, Skin integrity and Medication Management Patient needs Consulting Manager/ Case Management for: Discharge Planning, Arranging Home Equipment or Services and Family Interventions Patient needs Dietary and Nutrition Services for: Adequate Nutrition, Nutritional Supplements and Nutritional Education Goals Goals Patient will remain: free from falls and or injury at time of discharge. Patient will perform bed mobility at: MOD I level of assist. Patient will ambulate: with LRD and - (350 ' SUP) Patient will complete upper body dressing at: - (Setup.) Patient will complete lower body dressing at: - (Min A with AE.) Patient will complete toilet transfer at: Standby Assist. Patient will complete toileting at: Standby Assist. Patient will perform bathing at: - (CGA with AE prn.) Patient will perform Tub/Shower transfer at: - (DME prn.) Patient will complete grooming at: Standby Assist. Patient will achieve: 12 stairs, with standby assist and - (W/1 RAILS.) Patient will have pain level of: of 3 or less Patient's skin will: remain intact and free from infection. Patient will receive: adequate nutrition. Discharge Planning Pt Prognosis for Sig. Practical Improv. w/in Reasonable Time: Good Estimated Length of stay (days): 21 Anticipated D/C Destination: Home with Home Health Was Preadmission Assessment Accurate?: Yes
--- NOTE | 2025-02-14 15:49 | CHAPLAIN ---
Type of Pastoral Visit ___ Initial Visit ___ Follow-up Visit ___ On-call Visit ___ General Patient Visit ___ Spiritual Assessment ___ Family Conference ___ Bereavement ___ Rapid Response ___ Code Blue ___ Other (describe below) Pastoral Care Referral From ___ Patient ___ Family ___ Nurse ___ Physician ___ Supplier Relationship Director ___ Blanket Binder ___ Other (describe below) Sacrament/Intervention ___ Active listening ___ Anointing ___ Restoration ___ Bereavement ___ Communion ___ Eveline exploration ___ ___ Life review ___ Prayer ___ Reconciliation ___ Sacrament of Sick ___ Supportive presence ___ Wedding ___ Other (describe below) Pastoral Comments first attempt and the patient was not available; second attempt the patient was lying in bed and had a son with him in the room; offered support, heard some background of life; pt is welcoming but does not express much in feelings or with details; pt does have family support; pt is not connected to a tenriism but his is and thus the son says they are congregational; pt agrees to prayer and for future visits
[2025-02-14 17:08] VITALS: BP 101/47; PULSE 64; RESP 17; TEMP 36.9; O2SAT 93
[2025-02-14] MEDS: Warfarin (PBKC) 4 MG Tablet PO (18:44)
[2025-02-14] MEDS: MELATONIN 3 MG TABLET PO (21:05)
[2025-02-15 05:14] VITALS: BP 126/63; PULSE 69; RESP 16; TEMP 36.3; O2SAT 94
[2025-02-15 06:57] LABS: Prothrombin Time (Protime)PT. 29.2 SECONDS (11.7-14.9)
[2025-02-15] MEDS: NILOTINIB HCL 150 MG 300 MG PO ×2 (10:00→20:53)
[2025-02-15] MEDS: Aspirin E.C. 81 MG Tablet PO (10:02)
[2025-02-15] MEDS: Warfarin (PBKC) 4 MG Tablet PO (10:02)
[2025-02-15 10:03] VITALS: BP 127/56; PULSE 67
[2025-02-15 17:40] VITALS: BP 117/46; PULSE 66; RESP 17; TEMP 36.6; O2SAT 96
[2025-02-15] MEDS: MELATONIN 3 MG TABLET PO (21:02)
[2025-02-16 05:15] VITALS: BP 130/49; PULSE 70; RESP 18; TEMP 36.6; O2SAT 95
[2025-02-16 06:51] LABS: Prothrombin Time (Protime)PT. 26.7 SECONDS (11.7-14.9)
[2025-02-16] MEDS: Aspirin E.C. 81 MG Tablet PO (08:30)
[2025-02-16] MEDS: Senna/Docusate Sodium 1 Tablet 2 TABLET PO (08:30)
[2025-02-16] MEDS: NILOTINIB HCL 150 MG 300 MG PO ×2 (08:31→21:21)
[2025-02-16 08:38] VITALS: BP 134/59; PULSE 67
[2025-02-16] MEDS: Warfarin (PBKC) 4 MG Tablet PO (10:43)
--- NOTE | 2025-02-16 11:00 | NURSING ---
Dr. Myers aware of INR result. CAROLYN's.
[2025-02-16] MEDS: 0.9% Saline Lock 10 ML Syringe IV (17:46)
[2025-02-16 17:49] VITALS: BP 125/49; PULSE 57; RESP 16; TEMP 36.2; O2SAT 98
[2025-02-16] MEDS: MELATONIN 3 MG TABLET PO (21:27)
[2025-02-17] MEDS: 0.9% Saline Lock 10 ML Syringe IV ×2 (04:54→07:42)
[2025-02-17 05:09] VITALS: BP 127/59; PULSE 59; RESP 16; TEMP 36.9; O2SAT 94
[2025-02-17 07:35] VITALS: BP 127/59; PULSE 59
[2025-02-17] MEDS: Aspirin E.C. 81 MG Tablet PO (07:35)
[2025-02-17] MEDS: NILOTINIB HCL 150 MG 300 MG PO ×2 (07:36→21:15)
--- NOTE | 2025-02-17 07:38 | EX.PCM.PN.RE ---
Subjective Subjective Patient seen, examined. Per nursing, patient incontinent of stool overnight, stool urgency this AM, stool was dark, but Juaquin states it is from the iron. Objective Data Objective Data Vital Signs: Vital Signs Temp Pulse Resp BP Pulse Ox O2 Del Method 98.5 F 59 L 16 127/59 H 94 Room Air 02/17/25 05:09 02/17/25 05:09 02/17/25 05:09 02/17/25 05:09 02/17/25 05:09 02/17/25 05:09 Oxygen Delivery Method Room Air Weight: 96.36 kg Body Mass Index (BMI) 30.4 Intake & Output: Intake and Output for Last 24 Hours 02/15/25 02/16/25 02/17/25 23:59 23:59 23:59 Intake Total 1380 / 1380 1280 / 1280 Output Total 2300 / 2300 1300 / 1500 200 / 200 Balance -920 / -920 -20 / -220 -200 / -200 Lab / Micro Data 02/14/25 07:05 02/14/25 07:05 Indicators for Scoring Admitted with or Primary Diagnosis of CVA/Stroke: Yes Hx of CVA/Stroke: Yes Modified Irene Score MRS Score at time of Evaluation: 4-Moderate/severe disability Physical Exam Const alert General Appearance: cooperative HEENT normocephalic Eyes PERRL and EOMs intact bilaterally Neck supple, no JVD and no carotid bruits Resp normal respiratory effort, normal air movement and clear to auscultation bilaterally Cardio regular rate and regular rhythm GI normal to inspection, nondistended, normoactive bowel sounds, non-tender and non-distended Extremity normal capillary refill General Extremity: Negative for edema Skin no rashes or lesions noted General Skin Exam: no breakdown Neuro Neuro Narrative: Right hemiparesis. Speech: speech abnormal Details: Positive for slurred Psych affect normal Appearance: appropriate Assessment & Plan Assessment/Plan (1) Debility: (2) Left sided cerebral hemisphere cerebrovascular accident: (3) Right hemiparesis: (4) Coronary artery disease status post coronary stent insertion: (5) Multiple rib fractures: (6) Hx of aortic valve replacement, mechanical: (7) CML (chronic myelocytic leukemia): (8) Essential (primary) hypertension: (9) Osteoarthritis: QUALIFIERS: Osteoarthritis location: unspecified site Osteoarthritis type: unspecified Qualified Code(s): M19.90 - Unspecified osteoarthritis, unspecified site (10) Gout: (11) Hyperlipidemia: (12) Iron deficiency anemia: (13) Hypothyroidism: (14) GERD (gastroesophageal reflux disease): (15) Neuropathic pain: (16) BPH (benign prostatic hyperplasia): (17) Hypokalemia: PLAN: Plan 79 year old male with below past medical significant for recent LAD stent, hospitalized for left stroke, right boby, complicated by multiple right rib fractures 2/2 fall, mechanical aortic valve, CML, admitted to IRU for 3 hours daily rehabilitation, strengthening, prior to discharge home with . Debility - PT/OT/ST. Pain - Tylenol 1000mg q6 prn pain (1-5), Oxycodone 5mg q4 prn pain (6-10). Bowel - senna/colace 2 tablets bid, MOM 30mL po x 1 prn, Dulcolax 10mg pr x 1 prn. DVT prophylaxis - Warfarin. Melena - order H&H, check stool for blood. Insomnia - add Melatonin 3mg qhs prn. Gout - Allopurinol 100mg daily. Stroke - Aspirin 81mg daily thru 03/19/2025, Plavix 75mg daily, warfarin. Hyperlipidemia - Atorvastatin 80mg qhs. CAD s/p LAD stent - Metoprolol 25mg daily, Lisinopril 10mg daily, Isosorbide MN 30mg daily, Plavix 75mg daily thru 02/05/2026, Aspirin 81mg daily thru 03/19/2025. Mechanical aortic valve - INR 4.0, hold Warfarin 4mg daily, daily INR. Nutrition - Ensure Plus 120mL tidcm. Iron deficiency anemia - Ferrous sulfate 325mg daily. Chronic HFpEF - Metoprolol 25mg daily, Isorobide MN daily, Lisinopril 10mg daily, Furosemide 40mg daily. Neuropathic pain - Gabapentin 300mg daily. Hypothyroidism - Levothyroxine 50mcg daily, Skin irritation - Calmoseptine topical 4x/day. CML - Tasigna 300mg bid. GERD - Pantoprazole 40mg bid. BPH - Tamsulosin 0.4mg daily.
[2025-02-17] MEDS: Warfarin (PBKC) 4 MG Tablet PO (07:43)
[2025-02-17 08:02] LABS: Hematocrit 37.9 % (40-54); Hemoglobin 12.2 g/dL (13.0-16.5)
[2025-02-17 08:20] LABS: Prothrombin Time (Protime)PT. 27.6 SECONDS (11.7-14.9)
--- NOTE | 2025-02-17 08:21 | CASEMGMT ---
Social Work IDT met with patient for Team meeting. Left VM with . SW can provide updates to . Discussed patient's progress in PT/OT/ST/SN/MD. Educated to Medicare benefits and will provide LOS approval once received. SW will continue to follow for DC planning. - SW received return call from . SW provided updates from IDT (PT/OT/ST). SW educated to Medicare benefit. confirmed that pt had deficits from stroke in 2006, but is not at baseline cognitively. Pt managed own medications prior. uses FWW, has vertigo and a bad heart, thus the goal is for pt to return to PLOF as cannot physically assist pt. does the driving. SW inquired about contacts and requested DIL, Amos, is added as a contact. Amos manages the couples finances. SW updated in YOOSE. SW educated to Team Meetings during stay and she plans to be present. SW will continue to follow for DC planning and update with Medicare days once known. appreciative. Anny Chavez MOVIE PRODUCER LAB RN
--- NOTE | 2025-02-17 10:59 | SP.MBSS_ITS ---
Modified Barium Swallow
--- NOTE | 2025-02-17 10:59 | ST.MBS ---
Modified Barium Swallow Patient Information Study Date: 02/17/25 Study Time: 10:00 Direct Billable Minutes: 110 Total Minutes procedure & reportin Diagnosis: dysphagia/CVA Referring Physician: Anthony Myers Chi Reason for Referral: Objective assessment of swallow function under fluoroscopy recommended d/t wet vocal quality w/ suspicion for aspiration Medical History: EDDIE KHALIL, is a 79 M who presents with followin02/05/2025 Left heart catheterization with stent, [facility] at [facility], stroke symptoms started shortly after. Patient opted on going home rather than returning to hospital. 02/06/2025 [facility] ED fatigue. Presumed stroke, right sided weakness, history of previous stroke. On coumadin for prosthetic metallic aortic valve. LAD stent yesterday, unable to get out of car. NIHSS 6, outside TNK window. CT head negative, CTA head/neck negative LVO. 02/06/2025 Admit [facility]. PT/OT/ST/CM, Neurology consult, MRI brain, coumadin, plavix for stroke. Elevated troponin 2/2 recent heart cath with stent. 02/07/2025 Right sided weakness, speech slower. MRI brain showed multiple left sided strokes, probably cardioembolic. PT/OT/ST/CM. Coumadin for metallic aortic valve, plavix for lad stent 2 days prior. 02/08/2025 PT/OT/CM. A1c 4.9, INR 1.4, adjust warfarin with Lovenox bridge for metallic aortic valve. 02/09/2025 No acute events overnight, no BM for 3 to 4 days, speech baseline. INR 1.7, warfarin increased to 10mg daily. Elevated troponin 2/2 recent heart cath. 02/10/2025 Await Pre-CERT for IRU. 02/11/2025 On Nilotinib for CML, oncology recommends patient continues this drug. 02/12/2025 Right chest pain, imaging shows right rib fractures x 4, impacted right humeral fracture, chronic. Take home supply of Nilotinib for CML while on IRU. Aspirin, Plavix, coumadin thru 03/19/2025, then stop Aspirin, continue Plavix, coumadin for CAD s/p stent, metallic aortic valve. 02/13/2025 Admit to IRU for 3 hours daily rehabilitation, strengthening, prior to discharge home with . PMH: CML (chronic myelocytic leukemia), Acute UTI, Weakness, Wears hearing aid, Thyroid disease, High cholesterol, Excessive bleeding, Back pain, Migraine headache, Stroke/cerebrovascular accident, History of IBS, Gastric reflux, Former smoker, Sleep apnea, Shortness of breath on exertion, Leg cramps, History of pain when walking, History of edema, History of echocardiogram, History of stress test, Cardiology follow-up encounter, bilateral hip replacements Current Diet Ordered: SBS/Thin Dentition: Upper Dentures and Lower Dentures Mental Status: WNL (sufficient for participation in MBSS) Respiratory Status: Oxygenating on Room Air Penetration-Aspiration Scale Penetration-Aspiration Scale: OBJECTIVE ASSESSMENT OF SWALLOW FUNCTION (QUANTITATIVE ? PER TRIAL): PENETRATION / ASPIRATION SCALE (SHELTON): 1 = does not enter airway 2 = enters airway/above vocal folds/ejected 3 = enters airway/above vocal folds/not ejected 4 = enters airway/contacts vocal folds/ejected 5 = enters airway/contacts vocal folds/not ejected 6 = enters airway/below vocal folds/ejected 7 = enters airway/below vocal folds/not ejected despite effort 8 = enters airway/below vocal folds/no effort VIDEOFLOROSCOPIC SCALE SCORE (SHELTON): Grade I = aspiration of material that has penetrated into the laryngeal vestibule, intact cough reflex Grade II = aspiration < 10 % of the bolus, intact cough reflex Grade III = aspiration of < 10 % of the bolus, reduced cough reflex or aspiration of > 10 % of the bolus, intact cough reflex Grade IV = aspiration of > 10 % of the bolus, reduced cough reflex Penetration-Aspiration Scale Score Thin Liquid via teaspoon: Result: 3= enters airways/above vocal folds/not ejected Thin Liquid via teaspoon Trial 2: Result: 3= enters airways/above vocal folds/not ejected Thin Liquid via large single sip: cup: Result: 8= enters airway/below vocal folds/no effort Thin Liquid via small single sip: cup: Result: 8= enters airway/below vocal folds/no effort Thin Liquid via small single sip: cup Chin tuck: Result: 7= enters airways/below vocal folds/not ejected despite effort (essentially silent w/ delayed weak cough) [place] Thick Liquid via small single sip: cup: Result: 7= enters airways/below vocal folds/not ejected despite effort (essentially silent w/ delayed weak cough) Honey Thick Liquid via small single sip: cup: Result: 3= enters airways/above vocal folds/not ejected (trace) Honey Thick Liquid via small single sip: cup Trial 2: Result: 1= does not enter airway (penetration of residue w/ second swallow) Pudding: Result: 1= does not enter airway Pudding Trial 2: Result: 1= does not enter airway Thin Liquid via small single sip: cup Trial 2: Result: 8= enters airway/below vocal folds/no effort Thin Liquid via small single sip: cup Supraglottic swallow: Result: 8= enters airway/below vocal folds/no effort Oral Phase Labial Seal: No Labial Escape Tongue Control During Bolus Hold: Cohesive bolus between tongue to palatal seal Bolus Transport/Lingual Motion: Slowed tongue motion Oral Residue: Trace residue lining oral structures Pharyngeal Phase Initiation of Pharyngeal Swallow: Bolus head in pyriforms Soft Palate Elevation: No bolus between soft palate and pharyngeal wall Laryngeal Elevation: Partial superior movement thyroid cart/partial apprx aryt-epig petiole Anterior Hyoid Excursion: Partial anterior movement Epiglottic Movement: Partial inversion Laryngeal Vestibule Closure at Height of Swallow: Incomplete; narrow column of air/contrast in laryngeal vestibule Pharyngeal Stripping Wave: Present - diminished Pharyngoesophageal Segment Opening: Complete distension and complete duration; no obstruction of flow Tongue Base Retraction: Narrow column of contrast between tongue base & post. pharyngeal wall Pharyngeal Residue: Collection of residue within or on pharyngeal structures Esophageal Phase Esophageal Clearance: Complete clearance Treatment Strategies Effects of treatment strategies attemped:: effortful swallow, chin tuck and supraglottic swallow - not effective limiting bous volume to tsp - somewhat effective Diagnosis/Impression Diagnosis: moderate-severe oropharyngeal dysphagia .: The oral phase is characterized by... slowed lingual motion for AP bolus transportation The pharyngeal phase is characterized by... bolus spillage pooling to the pyriforms prior to swallow onset reduced hyolaryngeal excursion w/ incomplete epiglottic inversion resulting on penetration/SILENT ASPIRATION of thin and mildly thick liquids epiglottic inversion was better as bolus viscosity increased improved airway protection w/ bolus size reduced to tsp or liquids moderately thickened significant vallecular residue across all trials, worse w/ thicker viscositied, requiring a cued second swallow to partially clear post-prandial penetration of vallecular and pyriform residue The esophageal phase was unremarkable. Recommendations Diet: Soft and Bite Sized Textures and Moderately Thick Liquids Comment: Moderately thickened liquids recommended, but following education re: risks of aspiration/benefits of intervention and diet modification, the patient politely declined having liquids thickened. Telephone call placed to to review results of MBSS and recommendations. agrees w/ patient to forgo thickened liquids at this time. Encouraged oral hygiene prior to meals and small sips, preferably by teaspoon for liquids. Compensatory Strategies: Small Sips (liquids by tesapoon), Multiple Swallows (swallow 2x for each bite/sip) and Sitting upright Supervision: Distant Supervision Recommend Repeat Modified Barium Swallow: TBD Need for Skilled Speech Therapy Services: Yes Comment: ST to initiate oropharyngeal strengthening and closely monitor pulmonary status for changes. Continued education re: risks of aspiration. Education Completed: 1. Described result of evaluation. and 8. Family/caregivers require further education on strategies & risks. Status Active ST Patient: Active Contact Information [facility] Speech Therapy:: Argelia Haider M.A. COATER Speech-Language Pathologist [place] [id number] [place] [address] [email or web address] [phone]
[2025-02-17 16:41] VITALS: BP 117/58; PULSE 57; RESP 17; TEMP 36.2; O2SAT 96
[2025-02-17] MEDS: MELATONIN 3 MG TABLET PO (21:15)
[2025-02-18 06:00] VITALS: BP 128/68; PULSE 74; RESP 16; TEMP 36.6; O2SAT 96
[2025-02-18] MEDS: MENTHOL 226.8 GM JAR 1 APPLIC TOPICAL (06:06)
[2025-02-18 07:21] LABS: Prothrombin Time (Protime)PT. 29.1 SECONDS (11.7-14.9)
[2025-02-18] MEDS: Aspirin E.C. 81 MG Tablet PO (07:51)
[2025-02-18] MEDS: Warfarin (PBKC) 4 MG Tablet PO (07:51)
[2025-02-18] MEDS: NILOTINIB HCL 150 MG 300 MG PO ×2 (07:51→21:29)
[2025-02-18 07:52] VITALS: PULSE 72
[2025-02-18] MEDS: Senna/Docusate Sodium 1 Tablet 2 TABLET PO (07:52)
--- NOTE | 2025-02-18 08:40 | EX.PCM.PN.RE ---
Subjective Subjective Patient seen, examined. He had some dark stool yesterday, Hemoglobin improved to 12.2, Hemoccult negative, No acute events overnight, he is sitting in recliner. He has no new complaints. Objective Data Objective Data Vital Signs: Vital Signs Temp Pulse Resp BP Pulse Ox O2 Del Method 97.9 F 72 16 128/68 H 96 Room Air 02/18/25 06:00 02/18/25 07:52 02/18/25 06:00 02/18/25 06:00 02/18/25 06:00 02/18/25 06:00 Oxygen Delivery Method Room Air Weight: 96.36 kg Body Mass Index (BMI) 30.4 Intake & Output: Intake and Output for Last 24 Hours 02/16/25 02/17/25 02/18/25 23:59 23:59 23:59 Intake Total 1280 / 1280 1110 / 1110 200 / 200 Output Total 1300 / 1500 1800 / 2050 650 / 650 Balance -20 / -220 -690 / -940 -450 / -450 Lab / Micro Data 02/17/25 07:35 02/14/25 07:05 Labs: Laboratory Results - last 24 hr 02/18/25 06:20: PT 29.1 H, INR 2.7 Micro: Microbiology 02/17/25 18:20 Stool Stool Occult Blood (TRANG) - Final Indicators for Scoring Admitted with or Primary Diagnosis of CVA/Stroke: Yes Hx of CVA/Stroke: Yes Modified Meghan Score MRS Score at time of Evaluation: 4-Moderate/severe disability Physical Exam Const alert General Appearance: cooperative HEENT normocephalic Eyes PERRL and EOMs intact bilaterally Neck supple, no JVD and no carotid bruits Resp normal respiratory effort, normal air movement and clear to auscultation bilaterally Cardio regular rate and regular rhythm GI normal to inspection, nondistended, normoactive bowel sounds, non-tender and non-distended Extremity normal capillary refill General Extremity: Negative for edema Skin no rashes or lesions noted General Skin Exam: no breakdown Neuro Neuro Narrative: Right hemiparesis. Speech: speech abnormal Details: Positive for slurred Psych affect normal Appearance: appropriate Assessment & Plan Assessment/Plan (1) Debility: (2) Left sided cerebral hemisphere cerebrovascular accident: (3) Right hemiparesis: (4) Coronary artery disease status post coronary stent insertion: (5) Multiple rib fractures: (6) Hx of aortic valve replacement, mechanical: (7) CML (chronic myelocytic leukemia): (8) Essential (primary) hypertension: (9) Osteoarthritis: QUALIFIERS: Osteoarthritis location: unspecified site Osteoarthritis type: unspecified Qualified Code(s): M19.90 - Unspecified osteoarthritis, unspecified site (10) Gout: (11) Hyperlipidemia: (12) Iron deficiency anemia: (13) Hypothyroidism: (14) GERD (gastroesophageal reflux disease): (15) Neuropathic pain: (16) BPH (benign prostatic hyperplasia): (17) Hypokalemia: PLAN: Plan 79 year old male with below past medical significant for recent LAD stent, hospitalized for left stroke, right boby, complicated by multiple right rib fractures 2/2 fall, mechanical aortic valve, CML, admitted to IRU for 3 hours daily rehabilitation, strengthening, prior to discharge home with . Debility - PT/OT/ST. Pain - Tylenol 1000mg q6 prn pain (1-5), Oxycodone 5mg q4 prn pain (6-10). Bowel - senna/colace 2 tablets bid, MOM 30mL po x 1 prn, Dulcolax 10mg pr x 1 prn. DVT prophylaxis - Warfarin. Melena - Hemoglobin improved to 12.2, Hemoccult negative. Insomnia - add Melatonin 3mg qhs prn. Gout - Allopurinol 100mg daily. Stroke - Aspirin 81mg daily thru 03/19/2025, Plavix 75mg daily, warfarin. Hyperlipidemia - Atorvastatin 80mg qhs. CAD s/p LAD stent - Metoprolol 25mg daily, Lisinopril 10mg daily, Isosorbide MN 30mg daily, Plavix 75mg daily thru 02/05/2026, Aspirin 81mg daily thru 03/19/2025. Mechanical aortic valve - INR 4.0, hold Warfarin 4mg daily, daily INR. Nutrition - Ensure Plus 120mL tidcm. Iron deficiency anemia - Ferrous sulfate 325mg daily. Chronic HFpEF - Metoprolol 25mg daily, Isorobide MN daily, Lisinopril 10mg daily, Furosemide 40mg daily. Neuropathic pain - Gabapentin 300mg daily. Hypothyroidism - Levothyroxine 50mcg daily, Skin irritation - Calmoseptine topical 4x/day. CML - Tasigna 300mg bid. GERD - Pantoprazole 40mg bid. BPH - Tamsulosin 0.4mg daily.
[2025-02-18 18:00] VITALS: BP 137/50; PULSE 52; RESP 17; TEMP 36.4; O2SAT 98
[2025-02-18] MEDS: MELATONIN 3 MG TABLET PO (21:46)
[2025-02-19 04:52] VITALS: BP 136/57; PULSE 58; RESP 18; TEMP 36.2; O2SAT 97
[2025-02-19 08:01] VITALS: PULSE 58
[2025-02-19] MEDS: Senna/Docusate Sodium 1 Tablet 2 TABLET PO (08:01)
[2025-02-19] MEDS: Aspirin E.C. 81 MG Tablet PO (08:01)
[2025-02-19] MEDS: Warfarin (PBKC) 4 MG Tablet PO (08:01)
[2025-02-19] MEDS: NILOTINIB HCL 150 MG 300 MG PO ×2 (08:02→21:06)
[2025-02-19] MEDS: 0.9% Saline Lock 10 ML Syringe IV ×2 (08:07→21:07)
[2025-02-19 08:13] LABS: Prothrombin Time (Protime)PT. 30.8 SECONDS (11.7-14.9)
--- NOTE | 2025-02-19 08:31 | EX.PCM.PN.RE ---
Subjective Subjective Patient seen, examined. He is sitting in chair. No acute events overnight. He said therapy yesterday tired him out, but feels today will be better day. No new complaints. Objective Data Objective Data Vital Signs: Vital Signs Temp Pulse Resp BP Pulse Ox O2 Del Method 97.2 F L 58 L 18 136/57 H 97 Room Air 02/19/25 04:52 02/19/25 08:01 02/19/25 04:52 02/19/25 04:52 02/19/25 04:52 02/19/25 04:52 Oxygen Delivery Method Room Air Weight: 96.36 kg Body Mass Index (BMI) 30.4 Intake & Output: Intake and Output for Last 24 Hours 02/17/25 02/18/25 02/19/25 23:59 23:59 23:59 Intake Total 1110 / 1110 1140 / 1140 Output Total 1800 / 2050 1250 / 1250 200 / 200 Balance -690 / -940 -110 / -110 -200 / -200 Lab / Micro Data 02/17/25 07:35 02/14/25 07:05 Labs: Laboratory Results - last 24 hr 02/19/25 07:08: PT 30.8 H, INR 2.9 Micro: Microbiology 02/17/25 18:20 Stool Stool Occult Blood (TRANG) - Final Indicators for Scoring Admitted with or Primary Diagnosis of CVA/Stroke: Yes Hx of CVA/Stroke: Yes Modified [place] Score MRS Score at time of Evaluation: 4-Moderate/severe disability Physical Exam Const alert General Appearance: cooperative HEENT normocephalic Eyes PERRL and EOMs intact bilaterally Neck supple, no JVD and no carotid bruits Resp normal respiratory effort, normal air movement and clear to auscultation bilaterally Cardio regular rate and regular rhythm GI normal to inspection, nondistended, normoactive bowel sounds, non-tender and non-distended Extremity normal capillary refill General Extremity: Negative for edema Skin no rashes or lesions noted General Skin Exam: no breakdown Neuro Neuro Narrative: Right hemiparesis. Speech: speech abnormal Details: Positive for slurred Psych affect normal Appearance: appropriate Assessment & Plan Assessment/Plan (1) Debility: (2) Left sided cerebral hemisphere cerebrovascular accident: (3) Right hemiparesis: (4) Coronary artery disease status post coronary stent insertion: (5) Multiple rib fractures: (6) Hx of aortic valve replacement, mechanical: (7) CML (chronic myelocytic leukemia): (8) Essential (primary) hypertension: (9) Osteoarthritis: QUALIFIERS: Osteoarthritis location: unspecified site Osteoarthritis type: unspecified Qualified Code(s): M19.90 - Unspecified osteoarthritis, unspecified site (10) Gout: (11) Hyperlipidemia: (12) Iron deficiency anemia: (13) Hypothyroidism: (14) GERD (gastroesophageal reflux disease): (15) Neuropathic pain: (16) BPH (benign prostatic hyperplasia): (17) Hypokalemia: PLAN: Plan 79 year old male with below past medical significant for recent LAD stent, hospitalized for left stroke, right boby, complicated by multiple right rib fractures 2/2 fall, mechanical aortic valve, CML, admitted to IRU for 3 hours daily rehabilitation, strengthening, prior to discharge home with . Debility - PT/OT/ST. Pain - Tylenol 1000mg q6 prn pain (1-5), Oxycodone 5mg q4 prn pain (6-10). Bowel - senna/colace 2 tablets bid, MOM 30mL po x 1 prn, Dulcolax 10mg pr x 1 prn. DVT prophylaxis - Warfarin. Melena - Hemoglobin improved to 12.2, Hemoccult negative. Insomnia - Melatonin 3mg qhs prn. Gout - Allopurinol 100mg daily. Stroke - Aspirin 81mg daily thru 03/19/2025, Plavix 75mg daily, warfarin. Hyperlipidemia - Atorvastatin 80mg qhs. CAD s/p LAD stent - Metoprolol 25mg daily, Lisinopril 10mg daily, Isosorbide MN 30mg daily, Plavix 75mg daily thru 02/05/2026, Aspirin 81mg daily thru 03/19/2025. Mechanical aortic valve - INR 4.0, hold Warfarin 4mg daily, daily INR. Nutrition - Ensure Plus 120mL tidcm. Iron deficiency anemia - Ferrous sulfate 325mg daily. Chronic HFpEF - Metoprolol 25mg daily, Isosorbide MN daily, Lisinopril 10mg daily, Furosemide 40mg daily. Neuropathic pain - Gabapentin 300mg daily. Hypothyroidism - Levothyroxine 50mcg daily, Skin irritation - Calmoseptine topical 4x/day. CML - Tasigna 300mg bid. GERD - Pantoprazole 40mg bid. BPH - Tamsulosin 0.4mg daily.
[2025-02-19 18:00] VITALS: BP 138/49; PULSE 64; RESP 16; TEMP 36.3; O2SAT 96
[2025-02-19] MEDS: MELATONIN 3 MG TABLET PO (21:10)
[2025-02-19 22:00] VITALS: PULSE 64
[2025-02-20 06:00] VITALS: BP 132/53; PULSE 60; RESP 16; TEMP 35.9; O2SAT 99
[2025-02-20 08:00] LABS: Prothrombin Time (Protime)PT. 34.4 SECONDS (11.7-14.9)
[2025-02-20] MEDS: NILOTINIB HCL 150 MG 300 MG PO ×2 (08:41→20:37)
[2025-02-20 08:42] VITALS: PULSE 60
[2025-02-20] MEDS: Aspirin E.C. 81 MG Tablet PO (08:42)
[2025-02-20 17:26] VITALS: BP 111/52; PULSE 76; RESP 17; TEMP 36.9; O2SAT 97
[2025-02-20] MEDS: MELATONIN 3 MG TABLET PO (20:36)
[2025-02-20] MEDS: 0.9% Saline Lock 10 ML Syringe IV (20:37)
[2025-02-21 05:40] VITALS: BP 145/63; PULSE 70; RESP 16; TEMP 36.2; O2SAT 96
[2025-02-21] MEDS: Aspirin E.C. 81 MG Tablet PO (07:37)
[2025-02-21 09:20] LABS: Prothrombin Time (Protime)PT. 26.5 SECONDS (11.7-14.9)
[2025-02-21] MEDS: NILOTINIB HCL 150 MG 300 MG PO ×2 (10:09→20:01)
[2025-02-21 10:12] VITALS: BP 145/63; PULSE 70
[2025-02-21 11:21] VITALS: PULSE 70; RESP 17
--- NOTE | 2025-02-21 15:10 | PCM.PROGNOTE ---
Subjective Subjective Afebrile VSS -blood pressure over the past 48 hours has ranged from 111/52 to 145/63. Heart rate is within normal limits. Maintaining appropriate oxygen saturation on RA Oral intake - FOOD good FLUIDS fair Discussed with nursing - no problems that need addressed Reviewed the THERAPY notes Medication list reviewed. Currently on warfarin, aspirin and clopidogrel. Has been taking oxycodone 5 mg 1-2 times daily for chest pain. Also takes acetaminophen 1 g daily but has not had it for the past 2 days. Admits that he only uses the incentive spirometer occasionally. Has been getting melatonin 3 mg every night. 79-year-old male who underwent a left heart catheterization with KWAME placement to the LAD on 02/05/2025 at [facility]. While at the [facility] he underwent a transesophageal echocardiogram that showed an EF of 55%, mild aortic valve regurgitation and no definitive evidence of mobile echodensity. He was discharged from [facility] on 02/05/25 and it took multiple family members to get him into the car. His stated he was leaning heavily to the R side while seated in the car. On the morning of 02/06/2025 he had persistent right lower extremity weakness and problems with balance. He presented to the [place] emergency department on 02/06/2025 in the afternoon to be evaluated. NIHSS was 6 in the ED per the emergency room physician. Systolic blood pressure was elevated in the 180s at presentation to the emergency department. Stat CT brain was negative for acute findings but it did show a left frontotemporal encephalomalacia from a previous stroke. Teleneurology was consulted and they felt his NIHSS 7. They recommended a CTA to rule out large vessel occlusion followed by an MRI without contrast and a transthoracic echocardiogram. He was admitted to the hospitalist service. INR at presentation to the emergency department was subtherapeutic at 1.5. It remains subtherapeutic until 02/10/2025 when it was 2.5. While it was subtherapeutic he was maintained on a Lovenox bridge. The MRI showed scattered small foci of acute infarct in the left yancy, posterior left frontal guallpa radiata and bilateral occipital lobes. There was chronic encephalomalacia and gliosis in the left frontal opercular region and left basal ganglia secondary to prior stroke. CTA of the head and neck showed no acute arterial abnormality. Incidental finding was a multinodular goiter. He was seen by PT/OT/ST and acute rehab was recommended. Prior to Dc from the hospital he c/o R chest pain (he had a fall onto his R side while using a FWW. Right rib x-rays showed fracture of the anterior margin of the right 7th, 8th, 9th and 10th ribs which were slightly displaced. There was also a cortical irregularity noted at the right humeral head and neck junction. Dedicated x-ray of the humerus showed an old right humeral neck fracture. He was discharged to the acute inpatient rehab unit at [place] on 02/13/2025 for 3 hours of therapy daily to restore function/independence at his level prior to the most recent stroke. Past medical history is significant for CML (on Tastigna), multinodular goiter/hypothyroidism, presbycusis, hyperlipidemia, chronic anticoagulation with warfarin, history of mechanical aortic valve replacement, tobacco dependence in remission, migraine headaches, prior CVA, irritable bowel syndrome, GERD, BPH on Flomax, obstructive sleep apnea on CPAP, coronary artery disease with PTCA. He will continue dual antiplatelet agents with aspirin and clopidogrel until March 19 and then aspirin can be discontinued but will need ongoing Plavix. Has had a modified barium swallow that showed silent aspiration but patient refuses thickened liquids. Juaquin denies cephalgia, lightheadedness, vertigo, chest pain (other than the rib pain), palpitations, shortness of breath, nausea/vomiting/constipation, dysuria and calf tenderness. He denies hemoptysis. He tells me he has a chronic cough and it is occasionally productive of some clear sputum. He is on lisinopril. He is sleeping well at night. Objective Data Objective Data Vital Signs: Vital Signs Temp Pulse Resp BP Pulse Ox O2 Del Method 97.2 F L 70 17 145/63 H 96 Room Air 02/21/25 05:40 02/21/25 11:21 02/21/25 11:21 02/21/25 10:12 02/21/25 05:40 02/21/25 11:21 Oxygen Delivery Method Room Air Weight: 212 lb 6.999 oz Body Mass Index (BMI) 30.4 Intake & Output: Intake and Output for Last 24 Hours 02/19/25 02/20/25 02/21/25 23:59 23:59 23:59 Intake Total 1080 / 1130 1270 / 1270 780 / 780 Output Total 700 / 800 950 / 950 500 / 500 Balance 380 / 330 320 / 320 280 / 280 Lab / Micro Data 02/17/25 07:35 02/14/25 07:05 Labs: Laboratory Results - last 24 hr 02/21/25 09:01: PT 26.5 H, INR 2.4 Micro: Microbiology 02/17/25 18:20 Stool Stool Occult Blood (TRANG) - Final Physical Exam Const alert, oriented x3 and no apparent distress Constitutional Narrative: Sitting in the recliner at the bedside General Appearance: cooperative Neck supple Resp normal respiratory effort, normal air movement and clear to auscultation bilaterally Resp Narrative: No coughing with a deep breath. Effort and Inspection: Negative for tachypneic or respiratory distress Cardio regular rate, regular rhythm and no gallops Cardio Narrative: No ectopy. GI normal to inspection, nondistended, normoactive bowel sounds, soft to palpation and non-tender GI Narrative: No guarding with palpation. Tells me he is having regular bowel movements. Extremity no calf tenderness General Extremity: Negative for edema Skin Rashes: no rashes Neuro Neuro Narrative: Trace right facial droop which he tells me he has had since his first stroke in he believes 2006. No other facial asymmetry. Minimal shoulder shrug on the right. No drift with either upper extremity however he is weaker on the right side and I can easily push his arm down. No ataxia with the upper extremities. 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 Very mild drift with the right lower extremity and it is weaker than the left. He has plantarflexion and dorsiflexion of the right foot however it is weaker than on the left. No ataxia with the lower extremities. No numbness. His tells me that he has occasional trouble word finding but it is much better than it was. Assessment & Plan Assessment/Plan (1) Debility: (2) Embolic stroke: QUALIFIERS: Precerebral and cerebral artery: unspecified cerebral artery Qualified Code(s): I63.40 - Cerebral infarction due to embolism of unspecified cerebral artery (3) Right hemiparesis: (4) Dysphagia: QUALIFIERS: Dysphagia type: oropharyngeal phase Qualified Code(s): R13.12 - Dysphagia, oropharyngeal phase (5) Silent aspiration: QUALIFIERS: Encounter type: subsequent encounter Qualified Code(s): T17.900D - Unspecified foreign body in respiratory tract, part unspecified causing asphyxiation, subsequent encounter (6) Coronary artery disease status post coronary stent insertion: (7) Cognitive dysfunction: (8) Dysarthria: (9) Rib fracture: QUALIFIERS: Encounter type: subsequent encounter Rib fracture type: multiple ribs Fracture type: closed Laterality: right (10) Hx of aortic valve replacement, mechanical: PLAN: 2001 (11) Chronic anticoagulation: PLAN: On Warfarin (12) CAD (coronary artery disease): QUALIFIERS: Coronary Disease-Associated Artery/Lesion type: [place] artery [place] vs. transplanted heart: [place] heart Associated angina: without angina Qualified Code(s): I25.10 - Atherosclerotic heart disease of [place] coronary artery without angina pectoris (13) Obesity with body mass index (BMI) of 35.0 to 39.9 without comorbidity: (14) Multiple rib fractures: (15) CML (chronic myelocytic leukemia): (16) Hyperlipidemia: QUALIFIERS: Hyperlipidemia type: unspecified Qualified Code(s): E78.5 - Hyperlipidemia, unspecified (17) Hypothyroidism: QUALIFIERS: Hypothyroidism type: acquired Qualified Code(s): E03.9 - Hypothyroidism, unspecified PLAN: Multinodular goiter. (18) BPH (benign prostatic hyperplasia): QUALIFIERS: Lower urinary tract symptom presence: unspecified whether lower urinary tract symptoms present Qualified Code(s): N40.0 - Benign prostatic hyperplasia without lower urinary tract symptoms PLAN: Plan 1. Continue therapy 2. CBC, CMP on Monday 3. Complaining of chronic cough and is currently taking an TRA. We will discontinue the lisinopril and start Cozaar 50 mg daily to see if this helps with the cough. 4. His is disabled secondary to cardiovascular disease/chronic congestive heart failure. She will not be able to provide much assistance at home. He is making good progress in therapy but I encouraged him to stay to maximize his chance of returning home and not requiring much assistance from his . He ambulated 110 feet today with a wheeled walker at contact-guard assist. 5. Warfarin was held yesterday for an INR of 3.3. Will restart today at 4 mg daily. Recheck a PTT/INR on Monday. 6. the last dose of ASA will be on 03/19 and we will continue only the Plavix. Charges/Coding Visit Charges Inpatient E&M: 35541 Subs Hosp L2
[2025-02-21] MEDS: Warfarin (PBKC) 4 MG Tablet PO (16:49)
[2025-02-21 17:49] VITALS: BP 114/55; PULSE 68; RESP 16; TEMP 36.6; O2SAT 95
[2025-02-21] MEDS: MELATONIN 3 MG TABLET PO (20:12)
[2025-02-21] MEDS: 0.9% Saline Lock 10 ML Syringe IV (20:13)
[2025-02-22 05:41] VITALS: BP 124/70; PULSE 63; RESP 16; TEMP 36.6; O2SAT 96
[2025-02-22] MEDS: NILOTINIB HCL 150 MG 300 MG PO ×2 (09:03→20:51)
[2025-02-22 09:10] VITALS: BP 121/56; PULSE 72
[2025-02-22] MEDS: Aspirin E.C. 81 MG Tablet PO (09:10)
[2025-02-22] MEDS: 0.9% Saline Lock 10 ML Syringe IV ×2 (09:15→21:09)
[2025-02-22] MEDS: Warfarin (PBKC) 4 MG Tablet PO (17:40)
[2025-02-22 17:44] VITALS: BP 91/50; PULSE 57; RESP 16; TEMP 36.4; O2SAT 97
[2025-02-22] MEDS: MELATONIN 3 MG TABLET PO (21:03)
[2025-02-23 06:45] VITALS: BP 130/59; PULSE 65; RESP 15; TEMP 36.6; O2SAT 97
[2025-02-23] MEDS: Aspirin E.C. 81 MG Tablet PO (08:12)
[2025-02-23 08:13] VITALS: BP 110/50; PULSE 68
[2025-02-23] MEDS: NILOTINIB HCL 150 MG 300 MG PO ×2 (08:20→20:13)
[2025-02-23] MEDS: 0.9% Saline Lock 10 ML Syringe IV (12:25)
[2025-02-23 17:38] VITALS: BP 104/59; PULSE 61; RESP 17; TEMP 36.2; O2SAT 98
[2025-02-23] MEDS: Warfarin (PBKC) 4 MG Tablet PO (18:40)
[2025-02-23] MEDS: MELATONIN 3 MG TABLET PO (20:16)
[2025-02-23 21:19] VITALS: RESP 16
[2025-02-24 06:00] VITALS: BP 111/71; PULSE 54; RESP 16; TEMP 36.9; O2SAT 92
[2025-02-24 06:55] LABS: Hematocrit 37.4 % (40-54); Hemoglobin 12.1 g/dL (13.0-16.5); Mean Corp Hgb Conc 32.4 g/dL (32-36); Mean Corpuscular Volume 88.8 fL (80-94); Mean Platelet Vol. 10.9 fl (6.2-12.0); Platelet Count 223 K/mm3 (150-450); RBC Distribution Width CV 15.4 % (11.6-14.6); RBC Distribution Width SD 50.4 fl (35.1-43.9); Red Blood Count 4.21 M/mm3 (4.6-6.2); White Blood Count 5.0 K/mm3 (4.4-11.0)
[2025-02-24 07:17] LABS: Prothrombin Time (Protime)PT. 35.6 SECONDS (11.7-14.9)
[2025-02-24 07:20] LABS: AST(SGOT) 28 U/L (<=37); Alanine Aminotransfer ALT/SGPT 48 U/L (<=46); Albumin, Serum 3.3 g/dL (3.4-4.8); Alkaline Phosphatase 183 U/L (40-129); Anion Gap 8 (5-15); BUN 22 mg/dL (4-19); BUN/Creat Ratio 23.1 RATIO (10-20); Calcium,Total 8.8 mg/dL (7.6-11.0); Carbon Dioxide 25.5 mmol/L (21.0-32.0); Chloride 103 mmol/L (98-108); Estimated Creatinine Clearance 71.92 ml/min (50-250); Globulin 2.4 g/dL (2.2-4.2); Glucose 98 mg/dL (70-99); Potassium 4.1 mmol/L (3.3-5.1)
[2025-02-24 07:46] VITALS: PULSE 54
[2025-02-24] MEDS: NILOTINIB HCL 150 MG 300 MG PO ×2 (07:47→20:49)
[2025-02-24] MEDS: Aspirin E.C. 81 MG Tablet PO (07:47)
[2025-02-24] MEDS: Senna/Docusate Sodium 1 Tablet 2 TABLET PO (07:47)
--- NOTE | 2025-02-24 09:29 | PCM.PROGNOTE ---
Subjective Subjective Was seen on team rounds today. His was present in the room. All questions were answered to their satisfaction. is very concerned about the CLL and I reassured her that his complete blood count this morning was stable with no evidence of acute exacerbation of chronic lymphocytic leukemia. Afebrile VSS -heart rate over the weekend ranged from 54-68. Blood pressure over the weekend ranged from 91/52 130/59 Maintaining appropriate oxygen saturation on RA Oral intake - FOOD fair to good FLUIDS fair Discussed with nursing - no problems that need addressed Reviewed the THERAPY notes Medication list reviewed. All lab from this morning was personally reviewed. White blood cell count today is normal at 5.0. Hemoglobin is stable 12.1. Platelets are within normal limits. Sodium is 136 and the potassium is 4.1. His BUN is increased at 22 and creatinine is 0.97 which is up from 0.57 on 02/14/2025. Over the past 2 years his baseline creatinine has ranged from 0.73-1.04. LFTs are abnormal with a elevated alkaline phosphatase at 183 and an elevated ALT at 48. The alkaline phosphatase has been elevated since 2016. The mild elevation in ALT has just been since admission to the hospital. It is stable. May be secondary to atorvastatin 80 mg nightly. INR today is 3.5. Currently taking warfarin 4 mg daily 7 days a week. Juaquin denies cephalgia, lightheadedness, vertigo, shortness of breath, nausea/vomiting/abdominal pain, dysuria and calf tenderness. His only complaint really is right chest pain. He has been doing the incentive spirometry more often since we discussed this last week. Cough is minimal now and it is dry. He was transition from an TRA inhibitor to an ARB last week. Blood pressure remains well-controlled on 50 mg Cozaar daily. Objective Data Objective Data Vital Signs: Vital Signs Temp Pulse Resp BP Pulse Ox O2 Del Method 98.4 F 54 L 16 111/71 92 Room Air 02/24/25 06:00 02/24/25 07:46 02/24/25 06:00 02/24/25 06:00 02/24/25 06:00 02/24/25 06:00 Oxygen Delivery Method Room Air Weight: 212 lb 6.999 oz Body Mass Index (BMI) 30.4 Intake & Output: Intake and Output for Last 24 Hours 02/22/25 02/23/25 02/24/25 23:59 23:59 23:59 Intake Total 1989 1020 / 1020 220 / 220 Output Total 1300 / 1300 1075 / 1075 250 / 250 Balance 690 / 690 -55 / -55 -30 / -30 Lab / Micro Data 02/24/25 06:41 02/24/25 06:41 Labs: Laboratory Results - last 24 hr 02/24/25 06:41: WBC 5.0, RBC 4.21 L, Hgb 12.1 L, Hct 37.4 L, MCV 88.8, MCH 28.7, MCHC 32.4, RDW Std Deviation 50.4 H, RDW Coeff of Clement 15.4 H, Plt Count 223, MPV 10.9, PT 35.6 H, INR 3.5, Sodium 136, Potassium 4.1, Chloride 103, Carbon Dioxide 25.5, Anion Gap 8, BUN 22 H, Creatinine 0.97, Estim Creat Clear Calc 71.92, Est GFR (MDRD) Non-Af 79, BUN/Creatinine Ratio 23.1 H, Glucose 98, Calcium 8.8, Total Bilirubin 1.08, AST 28, ALT 48 H, Alkaline Phosphatase 183 H, Total Protein 5.7 L, Albumin 3.3 L, Globulin 2.4, Albumin/Globulin Ratio 1.4 Micro: Microbiology 02/17/25 18:20 Stool Stool Occult Blood (TRANG) - Final Physical Exam Const alert, oriented x3 and no apparent distress General Appearance: cooperative HEENT Mouth: dry mucous membranes Resp normal respiratory effort, normal air movement and clear to auscultation bilaterally Effort and Inspection: Negative for tachypneic Cardio no gallops Cardio Narrative: Irregular irregular rhythm with controlled ventricular response. GI normal to inspection, nondistended, normoactive bowel sounds, soft to palpation and non-tender GI Narrative: No guarding with palpation Extremity no calf tenderness General Extremity: Negative for edema Assessment & Plan Assessment/Plan (1) Debility: (2) Embolic stroke: QUALIFIERS: Precerebral and cerebral artery: unspecified cerebral artery Qualified Code(s): I63.40 - Cerebral infarction due to embolism of unspecified cerebral artery (3) Coronary artery disease status post coronary stent insertion: (4) Right hemiparesis: (5) Dysphagia: QUALIFIERS: Dysphagia type: oropharyngeal phase Qualified Code(s): R13.12 - Dysphagia, oropharyngeal phase (6) Silent aspiration: QUALIFIERS: Encounter type: subsequent encounter Qualified Code(s): T17.900D - Unspecified foreign body in respiratory tract, part unspecified causing asphyxiation, subsequent encounter (7) Cognitive dysfunction: (8) Dysarthria: (9) Hx of aortic valve replacement, mechanical: (10) Chronic anticoagulation: (11) Obesity with body mass index (BMI) of 35.0 to 39.9 without comorbidity: (12) Multiple rib fractures: QUALIFIERS: Encounter type: subsequent encounter Fracture type: closed Laterality: right PLAN: R side...ribs 7, 8, 9 and 10. (13) CML (chronic myelocytic leukemia): PLAN: On Taqstigna. (14) Hyperlipidemia: QUALIFIERS: Hyperlipidemia type: unspecified Qualified Code(s): E78.5 - Hyperlipidemia, unspecified (15) Hypothyroidism: QUALIFIERS: Hypothyroidism type: acquired Qualified Code(s): E03.9 - Hypothyroidism, unspecified (16) BPH (benign prostatic hyperplasia): QUALIFIERS: Lower urinary tract symptom presence: unspecified whether lower urinary tract symptoms present Qualified Code(s): N40.0 - Benign prostatic hyperplasia without lower urinary tract symptoms PLAN: Plan 1. Continue therapy 2. Change the warfarin dosing to 4 mg Monday, Monday, , Monday, Monday and 2 mg on Monday and Monday. 3. Recheck PT/INR Charges/Coding Visit Charges Inpatient E&M: 01859 Subs Hosp L2
--- NOTE | 2025-02-24 12:45 | CASEMGMT ---
Social Work IDT met with patient and for Team meeting. Discussed patient's progress in PT/OT/ST/SN/MD. Educated to Medicare approval of 22 days with DC 03/07. Pt is progressing well and IDT is recommending home with . is agreaeble to have pt return home. SW offered therapy training with but declined. Pt is requesting to DC home as well. SW offered skilled HHC at DC. Both agreeable. SW provided list of skilled HHC agencies within geographical area, INN with insurance, that include quality and resource data via [employer] guide. /pt to review and notify this worker of preferences. SW educated HHC agency will contact pt for SOC date date, but typically 2-3 days after DC, pending PCP signing orders. Identified pt needs BSC at DC. SW to coordinate. Will Reteam next week. Anny Chavez MSW LOOM FIXER SUPERVISOR
[2025-02-24] MEDS: Warfarin (PBKC) 2 MG Tablet PO (17:16)
[2025-02-24 18:00] VITALS: BP 97/45; PULSE 63; RESP 16; TEMP 36.6; O2SAT 97
[2025-02-24] MEDS: MELATONIN 3 MG TABLET PO (20:48)
[2025-02-24] MEDS: 0.9% Saline Lock 10 ML Syringe IV (20:55)
[2025-02-25] VITALS (8 sets, daily range): BP systolic 83–119; BP diastolic 41–56; PULSE 53–62; RESP 16–17; TEMP 36.2–36.3; O2SAT 98
[2025-02-25] MEDS: Senna/Docusate Sodium 1 Tablet 2 TABLET PO (08:27)
[2025-02-25] MEDS: Aspirin E.C. 81 MG Tablet PO (08:28)
[2025-02-25] MEDS: NILOTINIB HCL 150 MG 300 MG PO ×2 (08:29→21:06)
--- NOTE | 2025-02-25 11:17 | PCM.PROGNOTE ---
Subjective Subjective Afebrile VSS -recenty BP was 090/41.......it was rechecked with no change. He received Metoprolol Tartrate 25 mg and Cozaar 50 mg this AM. BUN/CREAT ratio was increased at 23.1 yesterday. Lasix was held this AM and he was encouraged to increase his fluid intake. Maintaining appropriate oxygen saturation on RA Oral intake - FOOD he has been eating a lot of food brought in by his and this includes candy and pastries. We discussed better diet choices with Juaquin and his yesterday. FLUIDS needs encouragement to maintain adequate fluid intake. Discussed with nursing - no problems that need addressed Reviewed the THERAPY notes Medication list reviewed. Jauquin became lightheaded while in the therapy room. He was sitting upright for a prolonged period of time. He had mild diaphoresis. He denies CP, SOB, palpitations, N/V/change in cough, dysuria. Told me he just does not feel right. He had a 500 cc NS bolus. He felt better when put back in bed. After the bolus he had orthostatics repeated and the BP once again dropped with standing and he became lightheaded. [place] better again when lying down. EKG shows AF with HR of [address] and T wave changes.......unchanged from the last 3 EKG's he has had. HR has been in the 50's frequently over the past couple days. No tachycardia. Objective Data Objective Data Vital Signs: Vital Signs Temp Pulse Resp BP Pulse Ox O2 Del Method 97.4 F L 53 L 17 90/41 L 98 Room Air 02/25/25 06:00 02/25/25 10:45 02/25/25 06:00 02/25/25 10:45 02/25/25 06:00 02/25/25 09:32 Oxygen Delivery Method Room Air Weight: 212 lb 6.999 oz Body Mass Index (BMI) 30.4 Intake & Output: Intake and Output for Last 24 Hours 02/23/25 02/24/25 02/25/25 23:59 23:59 23:59 Intake Total 1020 / 1020 1490 / 1490 240 / 240 Output Total 1075 / 1075 850 / 850 400 / 400 Balance -55 / -55 640 / 640 -160 / -160 Lab / Micro Data 02/24/25 06:41 02/24/25 06:41 Micro: Microbiology 02/17/25 18:20 Stool Stool Occult Blood (TRANG) - Final Physical Exam Const alert Constitutional Narrative: Pale, looks fatigued. General Appearance: cooperative HEENT HEENT Narrative: Mucous membranes are moist but he just finished drinking several different fluids for lunch. Neck supple Resp normal respiratory effort, normal air movement and clear to auscultation bilaterally Effort and Inspection: Negative for tachypneic or respiratory distress Cardio no rub and no gallops Cardio Narrative: Irregular irregular rhythm with a heart rate in the mid 50s. GI normal to inspection, nondistended, normoactive bowel sounds, soft to palpation and non-tender GI Narrative: he has a resolving bruise of the lower abd. No guarding with palpation. Extremity no calf tenderness General Extremity: Negative for edema Skin Skin Narrative: Pale, dry Rashes: no rashes Assessment & Plan Assessment/Plan (1) Orthostatic hypotension: PLAN: Suspect due to poor oral intake with chronic diuretic use.........dehydration with increased BUN/CREAT ratio. Will check a UA. EKG unremarkable. No new neurologic deficits. (2) Debility: (3) Embolic stroke: QUALIFIERS: Precerebral and cerebral artery: unspecified cerebral artery Qualified Code(s): I63.40 - Cerebral infarction due to embolism of unspecified cerebral artery (4) Coronary artery disease status post coronary stent insertion: (5) Right hemiparesis: (6) Dysphagia: QUALIFIERS: Dysphagia type: oropharyngeal phase Qualified Code(s): R13.12 - Dysphagia, oropharyngeal phase (7) Silent aspiration: QUALIFIERS: Encounter type: subsequent encounter Qualified Code(s): T17.900D - Unspecified foreign body in respiratory tract, part unspecified causing asphyxiation, subsequent encounter (8) Cognitive dysfunction: (9) Dysarthria: (10) Hx of aortic valve replacement, mechanical: (11) Chronic anticoagulation: (12) Obesity with body mass index (BMI) of 35.0 to 39.9 without comorbidity: (13) Multiple rib fractures: QUALIFIERS: Encounter type: subsequent encounter Fracture type: closed Laterality: right PLAN: R side...ribs 7, 8, 9 and 10. (14) CML (chronic myelocytic leukemia): PLAN: On Taqstigna. (15) Hyperlipidemia: QUALIFIERS: Hyperlipidemia type: unspecified Qualified Code(s): E78.5 - Hyperlipidemia, unspecified (16) Hypothyroidism: QUALIFIERS: Hypothyroidism type: acquired Qualified Code(s): E03.9 - Hypothyroidism, unspecified (17) BPH (benign prostatic hyperplasia): QUALIFIERS: Lower urinary tract symptom presence: unspecified whether lower urinary tract symptoms present Qualified Code(s): N40.0 - Benign prostatic hyperplasia without lower urinary tract symptoms PLAN: Plan 1. Hold therapy this afternoon due to symptomatic orthostatic hypotension. 2. He had 1 500 cc normal saline bolus and will repeat x 1. 3. Lasix was held today 4. Change metoprolol to 12.5 mg twice daily rather than 25 mg in the AM. Hold if the heart rate is less than 55 or the systolic less than 100. 5. Decrease Cozaar to 25 mg daily and hold if the systolic is less than 100 6. Encouraged increased fluid intake 7. EKG is unremarkable and unchanged from the past 3 EKGs that have been done. He denies chest pain and shortness of breath. 8. Will check a UA since he c/o back pain. Charges/Coding Visit Charges Inpatient E&M: 63558 Subs Hosp L2
--- NOTE | 2025-02-25 11:48 | NURSING ---
Patient noticeably not feeling well. C/O faint feeling and being hot- patient clammy to touch complaint of backpain, bs 126- bp 87/52 in right arm 90/52 in left arm. Then 98/54 when standing. Notified MD- Patient assisted to bed- started on 500 cc bolus. Encouragement of PO intake.
[2025-02-25] MEDS: 0.9% Normal Saline (500mL Bag) 500 ML 999 ML IV (11:52)
[2025-02-25 14:39] LABS: Mucous, Urine 0 SEEN /hpf (<or=2+); Squamous Epithelial Cells - UA 0 SEEN /hpf (0-5)
[2025-02-25 14:44] LABS: Color, Urine Red (Yellow); Glucose, Dipstick Normal (Normal); Ketone-Dipstick 5 mg/dl (Negative); Leukocyte Esterase-Dipstick 500 /ul (Negative); Nitrite-Dipstick Negative (Negative); Occult Blood-Urine 250 /ul (Negative); Protein-Dipstick 100 mg/dl (Negative); Specific Gravity, Urine 1.020 (1.002-1.030)
[2025-02-25 14:45] LABS: Urine Bilirubin Dipstick 1 mg/dL (Negative)
[2025-02-25 14:49] LABS: Red Blood Cells-Urine > 100 SEEN /hpf (0-5)
[2025-02-25] MEDS: Warfarin (PBKC) 4 MG Tablet PO (16:53)
[2025-02-25] MEDS: 0.9% Saline Lock 10 ML Syringe IV (21:25)
[2025-02-26 05:51] VITALS: BP 127/52; PULSE 85; RESP 16; TEMP 37; O2SAT 95
[2025-02-26 06:00] VITALS: BMI 29.0
[2025-02-26] MEDS: NILOTINIB HCL 150 MG 300 MG PO (08:04)
[2025-02-26 08:05] VITALS: PULSE 85
[2025-02-26] MEDS: Aspirin E.C. 81 MG Tablet PO (08:05)
--- NOTE | 2025-02-26 09:40 | PCM.PROGNOTE ---
Subjective Subjective Juaquin is complaining stomach discomfort with nausea. He was unable to eat breakfast. He states that he had diarrhea last night. The patient would benefit from oral probiotic which I did order. I recommended that he utilize Zofran which he is in agreement .Denies dizziness, chest pain or flutter in his chest. Yesterday he did have an episode of dizziness with diaphoresis. This has since resolved. Vital signs are stable he most recently BP of 127/52 with a heart rate 82. Heart rate is irregular on auscultation. Patient did receive Tylenol and Oxy IR at 05 48 this morning back pain of 7/10. He is currently not complaining of back pain. He is maintaining appropriate oxygenation on room air. Oral intake?. FOOD: Patient was unable to consume breakfast this morning because of nausea. Patient is open to receiving Zofran. FLUIDS: Continued encouragement to maintain adequate fluid intake Discussed with nursing: Address nausea with Zofran Reviewed the THERAPY notes. Medication list reviewed. Addition of probiotic. Patient has been having vomiting today but did have diarrhea yesterday. UA results indicate sterile pyuria with leukocytes and hematuria but no bacteria. Will hold off on antibiotics, pending culture. Nursing states that he did have blood in his urine last night but none was seen today. Objective Data Objective Data Vital Signs: Vital Signs Temp Pulse Resp BP Pulse Ox O2 Del Method 98.6 F 85 16 127/52 H 95 Room Air 02/26/25 05:51 02/26/25 08:05 02/26/25 05:51 02/26/25 05:51 02/26/25 05:51 02/26/25 05:51 Oxygen Delivery Method Room Air Weight: 202 lb 13.204 oz Body Mass Index (BMI) 29.0 Intake & Output: Intake and Output for Last 24 Hours 02/24/25 02/25/25 02/26/25 23:59 23:59 23:59 Intake Total 1490 / 1490 1280 / 1280 320 / 320 Output Total 850 / 850 1300 / 1300 Balance 640 / 640 -20 / -20 320 / 320 Lab / Micro Data Attestation: I reviewed the patient's lab results. Lab results narrative: Please see notes. 02/28/25 06:40 02/27/25 06:46 Labs: Laboratory Results - last 24 hr 02/25/25 11:34: POC Glucose 126 H 02/25/25 14:29: Urine Color Red, Urine Clarity Cloudy, Urine pH 5.0, Ur Specific [place] 1.020, Urine Protein 100 H, Urine Glucose (UA) Normal, Urine Ketones 5 H, Urine Occult Blood 250 H, Urine Nitrite Negative, Urine Bilirubin 1 H, Urine Urobilinogen 4 H, Ur Leukocyte Esterase 500 H, Urine RBC > 100 SEEN, Urine WBC 0-5 SEEN, Ur Squamous Epith Cells 0 SEEN, Urine Bacteria 0 SEEN, Urine Mucus 0 SEEN Micro: Microbiology 02/17/25 18:20 Stool Stool Occult Blood (TRANG) - Final Rhythm Strip Rhythm Strip: Irregular Rate: 82 Physical Exam Const alert Constitutional Narrative: Pale, looks fatigued. General Appearance: cooperative HEENT HEENT Narrative: Mucous membranes are moist. Neck supple Resp normal respiratory effort, normal air movement and clear to auscultation bilaterally Effort and Inspection: Negative for tachypneic or respiratory distress Cardio no rub and no gallops Cardio Narrative: Irregular irregular rhythm with a heart rate in the 80's. GI normal to inspection, nondistended, normoactive bowel sounds, soft to palpation and non-tender GI Narrative: he has a resolving bruise of the lower abd. No guarding with palpation. Extremity no calf tenderness General Extremity: Negative for edema Skin Skin Narrative: Pale, dry Rashes: no rashes Assessment & Plan Assessment/Plan (1) Orthostatic hypotension: PLAN: Suspect due to poor oral intake with chronic diuretic use.........dehydration with increased BUN/CREAT ratio of 23.1 on 02/25/25. No new neurologic deficits. *is resolving (2) Debility: (3) Embolic stroke: QUALIFIERS: Precerebral and cerebral artery: unspecified cerebral artery Qualified Code(s): I63.40 - Cerebral infarction due to embolism of unspecified cerebral artery (4) Coronary artery disease status post coronary stent insertion: (5) Right hemiparesis: (6) Dysphagia: QUALIFIERS: Dysphagia type: oropharyngeal phase Qualified Code(s): R13.12 - Dysphagia, oropharyngeal phase (7) Silent aspiration: QUALIFIERS: Encounter type: subsequent encounter Qualified Code(s): T17.900D - Unspecified foreign body in respiratory tract, part unspecified causing asphyxiation, subsequent encounter (8) Cognitive dysfunction: (9) Dysarthria: (10) Hx of aortic valve replacement, mechanical: (11) Chronic anticoagulation: (12) Obesity with body mass index (BMI) of 35.0 to 39.9 without comorbidity: (13) Multiple rib fractures: QUALIFIERS: Encounter type: subsequent encounter Fracture type: closed Laterality: right PLAN: R side...ribs 7, 8, 9 and 10. (14) CML (chronic myelocytic leukemia): PLAN: On Taqstigna. (15) Hyperlipidemia: QUALIFIERS: Hyperlipidemia type: unspecified Qualified Code(s): E78.5 - Hyperlipidemia, unspecified (16) Hypothyroidism: QUALIFIERS: Hypothyroidism type: acquired Qualified Code(s): E03.9 - Hypothyroidism, unspecified (17) BPH (benign prostatic hyperplasia): QUALIFIERS: Lower urinary tract symptom presence: unspecified whether lower urinary tract symptoms present Qualified Code(s): N40.0 - Benign prostatic hyperplasia without lower urinary tract symptoms (18) Diarrhea: QUALIFIERS: Diarrhea type: unspecified type Qualified Code(s): R19.7 - Diarrhea, unspecified PLAN: *Lactobacillus acidophilus 1 tab p.o. twice daily. PLAN: Plan * continue with therapies *. Lasix was held today *. Change metoprolol to 12.5 mg twice daily rather than 25 mg in the AM. Hold if the heart rate is less than 55 or the systolic less than 100. *. Decrease Cozaar to 25 mg daily and hold if the systolic is less than 100 *. Encouraged increased fluid intake *. EKG is unremarkable and unchanged from the past 3 EKGs that have been done. om 02/25/25. He denies chest pain and shortness of breath. *. UA indicated sterile pyuria. Awaiting urine culture. Continue to monitor. Charges/Coding Visit Charges Inpatient E&M: 43780 Subs Hosp L2
[2025-02-26] MEDS: 0.9% Saline Lock 10 ML Syringe IV (09:58)
[2025-02-26 10:00] VITALS: BMI 29.1
[2025-02-26] MEDS: Lactobacillis Acidophilus 1 CAP PO ×2 (11:33→20:46)
[2025-02-26] MEDS: Warfarin (PBKC) 4 MG Tablet PO (17:01)
[2025-02-26 18:00] VITALS: BP 134/51; PULSE 77; RESP 18; TEMP 37.3; O2SAT 92
[2025-02-26 20:20] VITALS: PULSE 77; RESP 18; O2SAT 92
[2025-02-26] MEDS: MELATONIN 3 MG TABLET PO (20:45)
[2025-02-26 20:46] VITALS: BP 111/45; PULSE 61
[2025-02-27] MEDS: 0.9% Saline Lock 10 ML Syringe IV (02:06)
[2025-02-27 05:54] VITALS: BP 108/72; PULSE 56; RESP 15; TEMP 36.9; O2SAT 93
[2025-02-27 07:16] LABS: Prothrombin Time (Protime)PT. 43.6 SECONDS (11.7-14.9)
--- NOTE | 2025-02-27 07:27 | NURSING ---
INR 4.5 per lab report. Brissa AMANDA made aware and will tell the Doctor. Coumadin put on hold for today.
[2025-02-27] MEDS: Lactobacillis Acidophilus 1 CAP PO ×2 (08:09→20:16)
[2025-02-27] MEDS: Aspirin E.C. 81 MG Tablet PO (08:10)
--- NOTE | 2025-02-27 08:15 | PCM.PROGNOTE ---
Subjective Subjective Afebrile VSS -blood pressure over the past 24 hours has ranged from 90/41 to 134/51. Heart rate is ranged from 56-85. Maintaining appropriate oxygen saturation on RA Oral intake - FOOD poor to fair yesterday. FLUIDS poor Discussed with nursing - Needing more assistance from nursing than earlier in the week. No specific complaints. Poor appetite but, denies N/V. Denies dysuria. Got agitated with nursing last night because they would not walk him to the BR.......he used the BSC because they felt he was too weak to walk to the BR safely. Reviewed the THERAPY notes Medication list reviewed. INR today is 4.5. Influenza and RSV are negative. Minimal cough and it is [employer]. R CP is better but, he is having some RUQ pain. He is S/P cholecystectomy. Had a BM today but, the last BM prior to that was 02/21. Denies N/V. Was orthostatic on Monday and received 1 L of NS but fluid balance Monday was -20. Fluid balance yesterday was +460 but, has been having some urine incontinence. Lasix was held yesterday and today....had been receiving 40 mg daily. He has a normal EF. Admits to feeling somewhat depressed because.....I am not going to get out of here. Objective Data Objective Data Vital Signs: Vital Signs Temp Pulse Resp BP Pulse Ox O2 Del Method 98.5 F 56 L 15 108/72 93 Room Air 02/27/25 05:54 02/27/25 05:54 02/27/25 05:54 02/27/25 05:54 02/27/25 05:54 02/27/25 05:54 Oxygen Delivery Method Room Air Weight: 202 lb 13.204 oz Body Mass Index (BMI) 29.0 Intake & Output: Intake and Output for Last 24 Hours 02/25/25 02/26/25 02/27/25 23:59 23:59 23:59 Intake Total 1280 / 1280 860 / 860 70 / 70 Output Total 1300 / 1300 400 / 400 200 / 200 Balance -20 / -20 460 / 460 -130 / -130 Lab / Micro Data 02/24/25 06:41 02/24/25 06:41 Labs: Laboratory Results - last 24 hr 02/27/25 06:46: PT 43.6 H, INR 4.5 H* Micro: Microbiology 02/26/25 17:08 Mucosa - Nose Influenza & RSV (PCR) - Final 02/17/25 18:20 Stool Stool Occult Blood (TRANG) - Final Rhythm Strip Rhythm Strip: Irregular Rate: 82 Physical Exam Const alert and no apparent distress Constitutional Narrative: Lying in bed. Not coughing. Seems a little agitated when I tell him that nursing reports he is more fatigued and weaker. He really did not offer any complaints when I asked if anything was new. HEENT HEENT Narrative: Palpebral conjunctiva is red and not trish pale. Neck is supple and he denies LAROSE. Also denies lightheadedness lying down. Neck No nuchal rigidity and supple Resp normal respiratory effort and clear to auscultation bilaterally Resp Narrative: Pat coughing with deep breathing Effort and Inspection: Negative for tachypneic or respiratory distress Cardio no rub and no gallops Cardio Narrative: irreg irreg with controlled VR. GI GI Narrative: Soft, winces with palpation of the RUQ. No pain with palpation of the epigastric area, LUQ, RLQ and LLQ. BS's are not hyperactive. No masses. No rigidity. Non-distended. Extremity no calf tenderness General Extremity: Negative for edema Skin Rashes: no rashes Neuro Neuro Narrative: No change in the neuro exam. Generalized weakness. Psych Psych Narrative: getting agitated more easily. Assessment & Plan Assessment/Plan (1) Complicated UTI (urinary tract infection): (2) Orthostatic hypotension: (3) Debility: (4) Embolic stroke: QUALIFIERS: Precerebral and cerebral artery: unspecified cerebral artery Qualified Code(s): I63.40 - Cerebral infarction due to embolism of unspecified cerebral artery (5) Coronary artery disease status post coronary stent insertion: (6) Right hemiparesis: (7) Dysphagia: QUALIFIERS: Dysphagia type: oropharyngeal phase Qualified Code(s): R13.12 - Dysphagia, oropharyngeal phase (8) Silent aspiration: QUALIFIERS: Encounter type: subsequent encounter Qualified Code(s): T17.900D - Unspecified foreign body in respiratory tract, part unspecified causing asphyxiation, subsequent encounter (9) Cognitive dysfunction: (10) Dysarthria: (11) Hx of aortic valve replacement, mechanical: (12) Chronic anticoagulation: (13) Obesity with body mass index (BMI) of 35.0 to 39.9 without comorbidity: (14) Multiple rib fractures: QUALIFIERS: Encounter type: subsequent encounter Fracture type: closed Laterality: right (15) CML (chronic myelocytic leukemia): (16) Hyperlipidemia: QUALIFIERS: Hyperlipidemia type: unspecified Qualified Code(s): E78.5 - Hyperlipidemia, unspecified (17) Hypothyroidism: QUALIFIERS: Hypothyroidism type: acquired Qualified Code(s): E03.9 - Hypothyroidism, unspecified (18) BPH (benign prostatic hyperplasia): QUALIFIERS: Lower urinary tract symptom presence: unspecified whether lower urinary tract symptoms present Qualified Code(s): N40.0 - Benign prostatic hyperplasia without lower urinary tract symptoms PLAN: Plan 1. Continue therapy. 2. CBC with diff, CMP, TSH and procalcitonin today 3. Awaiting the results of the urine culture but, he denies dysuria today and also denies flank pain. The UA on the had >100 RBC's and only 0-5 WBC's and no bacteria. No suspicious for UTI. It was also nitrite negative. There was proteinuria present and a small amount of ketones. Lungs are CTA and the cough is better since he was changed from an TRA to an ARB. I do not suspect PNA. No N/V/d so not suspecting gastroenteritis. 4. check orthostatics today. 5. Await the results of the lab before ordering any other testing. Charges/Coding Visit Charges Inpatient E&M: 07345 Subs Hosp L2
[2025-02-27 08:18] VITALS: BP 111/45; PULSE 59
[2025-02-27 08:51] LABS: Hematocrit 32.6 % (40-54); Hemoglobin 10.7 g/dL (13.0-16.5); Immature Granulocytes Count 0.030 X10^3/uL (0.0-0.0); Mean Corp Hgb Conc 32.8 g/dL (32-36); Mean Corpuscular Volume 89.1 fL (80-94); Mean Platelet Vol. 12.1 fl (6.2-12.0); NRBC Flagged by Analyzer 0 % (0-5); POSITIVE DIFFERENTIAL YES; Platelet Count 161 K/mm3 (150-450); RBC Distribution Width CV 15.8 % (11.6-14.6); RBC Distribution Width SD 52.0 fl (35.1-43.9); Red Blood Count 3.66 M/mm3 (4.6-6.2); White Blood Count 3.5 K/mm3 (4.4-11.0)
[2025-02-27 09:39] LABS: AST(SGOT) 17 U/L (<=37); Alanine Aminotransfer ALT/SGPT 27 U/L (<=46); Albumin, Serum 3.0 g/dL (3.4-4.8); Alkaline Phosphatase 152 U/L (40-129); Anion Gap 6 (5-15); BUN 25 mg/dL (4-19); BUN/Creat Ratio 24.4 RATIO (10-20); Calcium,Total 8.5 mg/dL (7.6-11.0); Carbon Dioxide 23.7 mmol/L (21.0-32.0); Chloride 105 mmol/L (98-108); Estimated Creatinine Clearance 65.66 ml/min (50-250); Globulin 2.2 g/dL (2.2-4.2); Glucose 101 mg/dL (70-99); Potassium 4.5 mmol/L (3.3-5.1); Procalcitonin 0.10 ng/mL (<=0.10)
--- NOTE | 2025-02-27 09:52 | US_ITS ---
PROCEDURE: US/Kidney and Bladder
[2025-02-27] MEDS: NILOTINIB HCL 150 MG 300 MG PO ×2 (09:54→20:17)
[2025-02-27] MEDS: 0.9% Normal Saline (500mL Bag) 500 ML IV (10:00)
[2025-02-27 10:16] VITALS: BP 104/45; BP 106/39; BP 115/42; PULSE 56; PULSE 65; PULSE 67
[2025-02-27] MEDS: 0.9% Normal Saline (1000mL) 1,000 ML 75 ML IV (12:15)
[2025-02-27 18:00] VITALS: BP 124/52; PULSE 75; RESP 17; TEMP 36.4; O2SAT 98
[2025-02-27 20:15] VITALS: BP 124/59; PULSE 77; RESP 17; O2SAT 98
[2025-02-27 20:29] VITALS: BP 124/56; PULSE 77
[2025-02-27] MEDS: MELATONIN 3 MG TABLET PO (20:55)
[2025-02-28] MEDS: 0.9% Normal Saline (1000mL) 1,000 ML 75 ML IV ×2 (03:04→16:53)
[2025-02-28 06:00] VITALS: BP 130/59; PULSE 56; RESP 18; TEMP 36.3; O2SAT 97
[2025-02-28 07:01] LABS: Hematocrit 34.5 % (40-54); Hemoglobin 11.0 g/dL (13.0-16.5)
[2025-02-28 07:11] LABS: Prothrombin Time (Protime)PT. 23.2 SECONDS (11.7-14.9)
--- NOTE | 2025-02-28 08:00 | EKG12_ITS ---
Test Reason : DYSRHYTHMIA
[2025-02-28] MEDS: Lactobacillis Acidophilus 1 CAP PO ×2 (08:25→20:11)
[2025-02-28 08:26] VITALS: BP 140/51; PULSE 64
[2025-02-28] MEDS: Aspirin E.C. 81 MG Tablet PO (08:26)
[2025-02-28] MEDS: Senna/Docusate Sodium 1 Tablet 2 TABLET PO ×2 (08:31→20:10)
[2025-02-28] MEDS: NILOTINIB HCL 150 MG 300 MG PO ×2 (08:32→20:10)
[2025-02-28 10:00] VITALS: BMI 29.5
--- NOTE | 2025-02-28 10:12 | PCM.PROGNOTE ---
Subjective Subjective Afebrile VSS -blood pressure for the past 24 hours has ranged from 108/72 yesterday a.m. to 140/51 currently. Heart rate is ranged from 56-77. Maintaining appropriate oxygen saturation on RA Oral intake - FOOD appetite is better today than it has been the past 48 hours. FLUIDS fluid balance yesterday was +1030 and today he is +2000. IV fluids concluded today. Discussed with nursing - no problems that need addressed Reviewed the THERAPY notes Medication list reviewed. The INR today is 2. Hemoglobin is stable at 11. Renal ultrasound was normal and the bladder was not well-visualized due to the fact that it was empty. Urine culture grew greater than 100,000 colonies of Enterobacter cloacae and it was pansensitive with the exception of nitrofurantoin which was only intermediate sensitivity. Tells me that he feels somewhat better today. Denies lightheadedness. Denies flank pain and dysuria. No N/V/abd pain. Objective Data Objective Data Vital Signs: Vital Signs Temp Pulse Resp BP Pulse Ox O2 Del Method 97.3 F L 64 18 140/51 H 97 Room Air 02/28/25 06:00 02/28/25 08:26 02/28/25 06:00 02/28/25 08:26 02/28/25 06:00 02/28/25 06:00 Oxygen Delivery Method Room Air Weight: 206 lb 2.115 oz Body Mass Index (BMI) 29.5 Intake & Output: Intake and Output for Last 24 Hours 02/26/25 02/27/25 02/28/25 23:59 23:59 23:59 Intake Total 860 / 860 2530 / 2530 1100 / 1100 Output Total 400 / 400 1500 / 1700 200 / 200 Balance 460 / 460 1030 / 830 900 / 900 Lab / Micro Data 02/28/25 06:40 02/27/25 06:46 Labs: Laboratory Results - last 24 hr 02/27/25 06:46: Free T4 1.40 02/28/25 06:40: Hgb 11.0 L, Hct 34.5 L, PT 23.2 H, INR 2.0 Micro: Microbiology 02/25/25 14:29 Urine, Clean Catch Urine Culture - Final Enterobacter cloacae complex 02/26/25 17:08 Mucosa - Nose Influenza & RSV (PCR) - Final 02/17/25 18:20 Stool Stool Occult Blood (TRANG) - Final Radiography Diagnostic Testing: Radiology Impression Renal Ultrasound 02/27/25 09:52 IMPRESSION: NORMAL RENAL ULTRASOUND. Reading Location: [facility] Rhythm Strip Rhythm Strip: Irregular Rate: 82 Physical Exam Const alert and no apparent distress Constitutional Narrative: He has more color in his face today and I saw him sitting upright in the therapy room. He was very alert and he denied lightheadedness. HEENT moist oral mucous membranes Resp clear to auscultation bilaterally Cardio no rub and no gallops Cardio Narrative: In atrial fibrillation with controlled ventricular response. GI normal to inspection, nondistended, normoactive bowel sounds, soft to palpation and non-tender GI Narrative: No guarding with palpation of the right upper quadrant today Extremity no calf tenderness General Extremity: Negative for edema Assessment & Plan Assessment/Plan (1) Complicated UTI (urinary tract infection): (2) Debility: (3) Embolic stroke: QUALIFIERS: Precerebral and cerebral artery: unspecified cerebral artery Qualified Code(s): I63.40 - Cerebral infarction due to embolism of unspecified cerebral artery (4) Coronary artery disease status post coronary stent insertion: (5) Right hemiparesis: (6) Dysphagia: QUALIFIERS: Dysphagia type: oropharyngeal phase Qualified Code(s): R13.12 - Dysphagia, oropharyngeal phase (7) Silent aspiration: QUALIFIERS: Encounter type: subsequent encounter Qualified Code(s): T17.900D - Unspecified foreign body in respiratory tract, part unspecified causing asphyxiation, subsequent encounter (8) Cognitive dysfunction: (9) Dysarthria: (10) Hx of aortic valve replacement, mechanical: (11) Chronic anticoagulation: (12) Multiple rib fractures: QUALIFIERS: Encounter type: subsequent encounter Fracture type: closed Laterality: right (13) CML (chronic myelocytic leukemia): (14) Acute renal failure (ARF): QUALIFIERS: Acute renal failure type: unspecified Qualified Code(s): N17.9 - Acute kidney failure, unspecified PLAN: Due to dehydration/intravascular volume depletion. PLAN: Plan 1. Continue therapy 2. Warfarin 4 mg today and tomorrow start 3 mg daily. PT/INR ordered for Monday and Monday. 3. Recheck a BMP in the a.m. 4. Discontinue Levaquin and start cefdinir 300 mg every 12 hours for total of 8 days...... has already had 2 daily doses of Levaquin. Charges/Coding Visit Charges Inpatient E&M: 13244 Subs Hosp L1
[2025-02-28] MEDS: Warfarin (PBKC) 4 MG Tablet PO (16:55)
[2025-02-28 18:00] VITALS: BP 128/65; PULSE 55; RESP 18; TEMP 36.2; O2SAT 96
[2025-02-28 19:35] VITALS: BP 123/58; PULSE 70; PULSE 77; RESP 18; O2SAT 96
[2025-02-28] MEDS: MELATONIN 3 MG TABLET PO (20:10)
[2025-02-28 20:11] VITALS: BP 123/58; PULSE 70
[2025-03-01 05:00] VITALS: BP 146/48; PULSE 61; RESP 16; TEMP 36.4; O2SAT 95
[2025-03-01 06:33] LABS: Prothrombin Time (Protime)PT. 18.3 SECONDS (11.7-14.9)
[2025-03-01 07:50] LABS: Anion Gap 6 (5-15); BUN 9 mg/dL (4-19); BUN/Creat Ratio 14.8 RATIO (10-20); Calcium,Total 8.1 mg/dL (7.6-11.0); Carbon Dioxide 20.6 mmol/L (21.0-32.0); Chloride 111 mmol/L (98-108); Estimated Creatinine Clearance 85.99 ml/min (50-250); Glucose 99 mg/dL (70-99); Potassium 4.3 mmol/L (3.3-5.1)
[2025-03-01 08:45] VITALS: BP 135/85; PULSE 65
[2025-03-01] MEDS: Senna/Docusate Sodium 1 Tablet 2 TABLET PO ×2 (08:46→20:57)
[2025-03-01] MEDS: NILOTINIB HCL 150 MG 300 MG PO ×2 (08:46→20:59)
[2025-03-01 08:47] VITALS: PULSE 65
[2025-03-01] MEDS: Lactobacillis Acidophilus 1 CAP PO ×2 (08:47→20:59)
[2025-03-01] MEDS: Aspirin E.C. 81 MG Tablet PO (08:52)
[2025-03-01 10:00] VITALS: BMI 29.5
[2025-03-01] MEDS: Warfarin (PBKC) 4 MG Tablet PO (16:03)
[2025-03-01 17:51] VITALS: BP 121/49; PULSE 54; RESP 18; TEMP 36.4; O2SAT 97
[2025-03-01 20:58] VITALS: BP 120/57; PULSE 60
[2025-03-01] MEDS: 0.9% Saline Lock 10 ML Syringe IV (21:10)
[2025-03-01 21:45] VITALS: RESP 17; O2SAT 95
[2025-03-02 06:00] VITALS: BP 123/47; PULSE 63; RESP 16; TEMP 36.8; O2SAT 97
[2025-03-02 06:20] LABS: Prothrombin Time (Protime)PT. 17.7 SECONDS (11.7-14.9)
[2025-03-02 06:26] VITALS: BMI 29.5
[2025-03-02 08:14] VITALS: BP 137/58; PULSE 72; RESP 18; O2SAT 99
[2025-03-02 08:20] VITALS: BP 137/58; PULSE 72
[2025-03-02] MEDS: Aspirin E.C. 81 MG Tablet PO (08:21)
[2025-03-02] MEDS: Senna/Docusate Sodium 1 Tablet 2 TABLET PO ×2 (08:21→21:31)
[2025-03-02] MEDS: Lactobacillis Acidophilus 1 CAP PO ×2 (08:21→21:31)
[2025-03-02] MEDS: NILOTINIB HCL 150 MG 300 MG PO ×2 (08:22→21:30)
[2025-03-02] MEDS: Warfarin (PBKC) 4 MG Tablet PO (16:46)
[2025-03-02 17:53] VITALS: BP 131/51; PULSE 63; RESP 16; TEMP 36.3; O2SAT 98
[2025-03-02 21:32] VITALS: PULSE 66
[2025-03-02] MEDS: MELATONIN 3 MG TABLET PO (21:47)
[2025-03-03 05:56] LABS: Prothrombin Time (Protime)PT. 20.2 SECONDS (11.7-14.9)
[2025-03-03 09:33] VITALS: BP 131/52; PULSE 60; RESP 16; O2SAT 99
[2025-03-03 09:36] VITALS: PULSE 60
[2025-03-03] MEDS: Aspirin E.C. 81 MG Tablet PO (09:37)
[2025-03-03] MEDS: Lactobacillis Acidophilus 1 CAP PO ×2 (09:37→21:51)
[2025-03-03] MEDS: NILOTINIB HCL 150 MG 300 MG PO ×2 (09:38→21:49)
[2025-03-03] MEDS: Senna/Docusate Sodium 1 Tablet 2 TABLET PO ×2 (09:38→21:53)
[2025-03-03] MEDS: 0.9% Saline Lock 10 ML Syringe IV (09:41)
[2025-03-03 10:00] VITALS: BMI 29.7
--- NOTE | 2025-03-03 10:39 | PCM.PROGNOTE ---
Subjective Subjective Had 2 days of Levaquin and has now had 6 of 17 doses of Cefdinir for a complicated UTI due to Enterobacter cloacae. Juaquin was seen on team rounds today. His was present in the room and his [id number]. All questions were answered to their satisfaction. Afebrile VSS -systolic over the past 48 hours has ranged from 122 146. Diastolic has ranged from 48-85. Blood pressures have improved with adjustment of her medication and over the past 24 hours of blood pressure has ranged from 123/47-137/58. blood pressure this morning was 131/51. Heart rate has ranged from 54-72 over the past 48 hours. He is currently taking Cozaar 25 mg daily and metoprolol 12.5 mg twice daily. Maintaining appropriate oxygen saturation on RA Oral intake - FOOD improved. Now eating 75 to 100% of his meals again. FLUIDS much improved. Oral fluid intake yesterday was 1732. Discussed with nursing - no problems that need addressed Reviewed the THERAPY notes Medication list reviewed. INR has been low since he received the 1 dose of oral vitamin K 5 mg. He is getting Lovenox 1 mg/kg every 12 hours until the INR is therapeutic. The INR today is 1.7 and he has been getting 4 mg a day. He is on a low-sodium diet and he is drinking sweetened soda, eating candy and chips and [place] fried chicken. He denies chest pain, shortness of breath, lightheadedness, dysuria, flank tenderness, calf pain. Hemoglobin A1c was 4.9. Objective Data Objective Data Vital Signs: Vital Signs Temp Pulse Resp BP Pulse Ox O2 Del Method 97.4 F L 60 16 131/52 H 99 Room Air 03/02/25 17:53 03/03/25 09:36 03/03/25 09:33 03/03/25 09:33 03/03/25 09:33 03/03/25 09:33 Oxygen Delivery Method Room Air Weight: 206 lb 8 oz Body Mass Index (BMI) 29.5 Intake & Output: Intake and Output for Last 24 Hours 03/01/25 03/02/25 03/03/25 23:59 22:59 23:59 Intake Total 2660 / 2660 1732 / 1982 490 / 490 Output Total 1101 / 1101 1050 / 1050 200 / 200 Balance 1559 / 1559 682 / 932 290 / 290 Lab / Micro Data 03/04/25 05:44 03/04/25 05:44 Labs: Laboratory Results - last 24 hr 03/03/25 05:20: PT 20.2 H, INR 1.7 Micro: Microbiology 02/25/25 14:29 Urine, Clean Catch Urine Culture - Final Enterobacter cloacae complex 02/26/25 17:08 Mucosa - Nose Influenza & RSV (PCR) - Final 02/17/25 18:20 Stool Stool Occult Blood (TRANG) - Final Rhythm Strip Rhythm Strip: Irregular Rate: 82 Physical Exam Const alert, oriented x3 and no apparent distress General Appearance: cooperative HEENT moist oral mucous membranes Resp normal respiratory effort and clear to auscultation bilaterally Resp Narrative: No conversational dyspnea and he is not tachypneic. Cardio no gallops Cardio Narrative: Irregularly irregular with controlled ventricular response. Extremity no calf tenderness General Extremity: Negative for edema Assessment & Plan Assessment/Plan (1) Orthostatic hypotension: (2) Debility: (3) Embolic stroke: QUALIFIERS: Precerebral and cerebral artery: unspecified cerebral artery Qualified Code(s): I63.40 - Cerebral infarction due to embolism of unspecified cerebral artery (4) Coronary artery disease status post coronary stent insertion: (5) Right hemiparesis: (6) Dysphagia: QUALIFIERS: Dysphagia type: oropharyngeal phase Qualified Code(s): R13.12 - Dysphagia, oropharyngeal phase (7) Silent aspiration: QUALIFIERS: Encounter type: subsequent encounter Qualified Code(s): T17.900D - Unspecified foreign body in respiratory tract, part unspecified causing asphyxiation, subsequent encounter (8) Cognitive dysfunction: (9) Dysarthria: (10) Hx of aortic valve replacement, mechanical: (11) Chronic anticoagulation: (12) Obesity with body mass index (BMI) of 35.0 to 39.9 without comorbidity: (13) Multiple rib fractures: QUALIFIERS: Encounter type: subsequent encounter Fracture type: closed Laterality: right (14) CML (chronic myelocytic leukemia): (15) Hyperlipidemia: QUALIFIERS: Hyperlipidemia type: unspecified Qualified Code(s): E78.5 - Hyperlipidemia, unspecified (16) Hypothyroidism: QUALIFIERS: Hypothyroidism type: acquired Qualified Code(s): E03.9 - Hypothyroidism, unspecified (17) BPH (benign prostatic hyperplasia): QUALIFIERS: Lower urinary tract symptom presence: unspecified whether lower urinary tract symptoms present Qualified Code(s): N40.0 - Benign prostatic hyperplasia without lower urinary tract symptoms (18) Complicated UTI (urinary tract infection): PLAN: Plan 1. Continue therapy 2. Given additional 2 mg of warfarin today for a total of 6 mg today. PT/INR ordered for Monday and Monday. 3. Restart Lasix 40 mg but change the dosing to every 48 hours rather than daily. EF is normal. 4. BMP, CBC tomorrow 5. Planning on discharge home on .. 6. Finish 10 days of antibiotics for complicated urinary tract infection secondary to Enterobacter cloacae. Charges/Coding Visit Charges Inpatient E&M: 01912 Subs Hosp L1
--- NOTE | 2025-03-03 13:58 | CASEMGMT ---
Team meeting held today with pt, pt's and pt's daughter in law Amos present. PT/OT/ST/SN and physician provided updates on pt progress and all confirm pt is progressing well. DC date is set for 03/07 and pt and family are agreeable to this plan. Pt will be returning home with his and recommendations are for home health care PT/OT. Pt's requesting provider preference of [facility]. BSC has been ordered through [employer]. Pt denies need for additional DME. Family to transport home. VM left with [facility] with referral information. SW will await determination of acceptance. TAVON Hernandez
--- NOTE | 2025-03-03 17:04 | CASEMGMT ---
Social Work [facility] is able to accept pt for PT/OT/SN with a start of care on 03/10/25. left for pt's updated on this information. SW will continue to follow for any additional discharge needs. DC Date: 03/07 DC Disposition: Home with and [facility] PT/OT/SN TAVON Hernandez
[2025-03-03] MEDS: Warfarin (PBKC) 2 MG Tablet PO (17:23)
[2025-03-03] MEDS: Warfarin (PBKC) 4 MG Tablet PO (17:24)
[2025-03-03 18:00] VITALS: BP 133/50; PULSE 77; RESP 18; TEMP 36.4; O2SAT 100
[2025-03-03 21:10] VITALS: BMI 29.7
[2025-03-03 21:40] VITALS: PULSE 59; O2SAT 100
[2025-03-03 21:50] VITALS: BP 129/53; PULSE 59
[2025-03-03] MEDS: MELATONIN 3 MG TABLET PO (21:59)
[2025-03-04 05:47] VITALS: BP 135/60; PULSE 51; RESP 16; TEMP 36.5; O2SAT 98
[2025-03-04 06:02] LABS: Hematocrit 34.6 % (40-54); Hemoglobin 11.4 g/dL (13.0-16.5); Immature Granulocytes Count 0.030 X10^3/uL (0.0-0.0); Mean Corp Hgb Conc 32.9 g/dL (32-36); Mean Corpuscular Volume 88.5 fL (80-94); Mean Platelet Vol. 11.1 fl (6.2-12.0); NRBC Flagged by Analyzer 0 % (0-5); Platelet Count 208 K/mm3 (150-450); RBC Distribution Width CV 15.4 % (11.6-14.6); RBC Distribution Width SD 49.9 fl (35.1-43.9); Red Blood Count 3.91 M/mm3 (4.6-6.2); White Blood Count 4.5 K/mm3 (4.4-11.0)
[2025-03-04 06:11] LABS: Prothrombin Time (Protime)PT. 22.0 SECONDS (11.7-14.9)
[2025-03-04 07:55] LABS: Anion Gap 10 (5-15); BUN 7 mg/dL (4-19); BUN/Creat Ratio 10.0 RATIO (10-20); Calcium,Total 8.7 mg/dL (7.6-11.0); Carbon Dioxide 22.1 mmol/L (21.0-32.0); Chloride 107 mmol/L (98-108); Estimated Creatinine Clearance 86.35 ml/min (50-250); Glucose 94 mg/dL (70-99); Magnesium 1.8 mg/dL (1.5-2.2); Potassium 4.1 mmol/L (3.3-5.1)
[2025-03-04] MEDS: NILOTINIB HCL 150 MG 300 MG PO ×2 (08:29→21:38)
[2025-03-04] MEDS: Aspirin E.C. 81 MG Tablet PO (08:31)
[2025-03-04] MEDS: Senna/Docusate Sodium 1 Tablet 2 TABLET PO (08:31)
[2025-03-04] MEDS: Lactobacillis Acidophilus 1 CAP PO ×2 (08:31→21:37)
[2025-03-04 08:44] VITALS: BMI 29.3
[2025-03-04 10:00] VITALS: O2SAT 96
--- NOTE | 2025-03-04 15:04 | PCM.PROGNOTE ---
Subjective Subjective AF VSS and the HR are well controlled Maintaining appropriate O2 sat on RA Denies LAROSE, lightheadedness, CP, SOB, orthopnea, N/V, flank pain and dysuria. All lab was personally reviewed. Hemoglobin is stable at 11.4 and the white blood cell count today is normal at 4.5. Platelets are normal at 208,000 today. INR is 1.9 today. Sodium is 139 and the potassium is 4.1. The BUN is 7 with a creatinine of 0.71 which is very good forbp and HR him. Magnesium is 1.8 today. Objective Data Objective Data Vital Signs: Vital Signs Temp Pulse Resp BP Pulse Ox O2 Del Method 97.7 F L 51 L 16 135/60 H 96 Room Air 03/04/25 05:47 03/04/25 05:47 03/04/25 05:47 03/04/25 05:47 03/04/25 10:00 03/04/25 10:00 Oxygen Delivery Method Room Air Weight: 205 lb 4 oz Body Mass Index (BMI) 29.3 Intake & Output: Intake and Output for Last 24 Hours 03/02/25 03/03/25 03/04/25 22:59 23:59 23:59 Intake Total 1731 / 1981 2029 / 2029 680 / 680 Output Total 1050 / 1050 2250 / 2250 1600 / 1600 Balance 682 / 932 -220 / -220 -920 / -920 Lab / Micro Data 03/04/25 05:44 03/04/25 05:44 Labs: Laboratory Results - last 24 hr 03/04/25 05:44: WBC 4.5, RBC 3.91 L, Hgb 11.4 L, Hct 34.6 L, MCV 88.5, MCH 29.2, MCHC 32.9, RDW Std Deviation 49.9 H, RDW Coeff of Clement 15.4 H, Plt Count 208, MPV 11.1, Immature Gran % (Auto) 0.700, Neut % (Auto) 68.7, Lymph % (Auto) 20.2, [place] % (Auto) 5.3, Eos % (Auto) 4.4, Baso % (Auto) 0.7, Absolute Neuts (auto) 3.1, Absolute Lymphs (auto) 0.91, Nucleated RBC % 0, PT 22.0 H, INR 1.9, Sodium 139, Potassium 4.1, Chloride 107, Carbon Dioxide 22.1, Anion Gap 10, BUN 7, Creatinine 0.71, Estim Creat Clear Calc 86.35, Est GFR (MDRD) Non-Af 94, BUN/Creatinine Ratio 10.0, Glucose 94, Calcium 8.7, Magnesium 1.8 Micro: Microbiology 02/25/25 14:29 Urine, Clean Catch Urine Culture - Final Enterobacter cloacae complex 02/26/25 17:08 Mucosa - Nose Influenza & RSV (PCR) - Final 02/17/25 18:20 Stool Stool Occult Blood (TRANG) - Final Rhythm Strip Rhythm Strip: Irregular Rate: 82 Physical Exam Const alert, oriented x3 and no apparent distress Constitutional Narrative: Good color in his face. Good energy. General Appearance: cooperative Resp normal respiratory effort and clear to auscultation bilaterally Cardio Cardio Narrative: irreg irreg with controlled VR. No gallop. GI normal to inspection, nondistended, normoactive bowel sounds, soft to palpation and non-tender GI Narrative: No suprapubic or flank pain Extremity no calf tenderness Extremity Narrative: No edema Assessment & Plan Assessment/Plan (1) Debility: (2) Embolic stroke: QUALIFIERS: Precerebral and cerebral artery: unspecified cerebral artery Qualified Code(s): I63.40 - Cerebral infarction due to embolism of unspecified cerebral artery (3) Coronary artery disease status post coronary stent insertion: (4) Right hemiparesis: (5) Dysphagia: QUALIFIERS: Dysphagia type: oropharyngeal phase Qualified Code(s): R13.12 - Dysphagia, oropharyngeal phase (6) Silent aspiration: QUALIFIERS: Encounter type: subsequent encounter Qualified Code(s): T17.900D - Unspecified foreign body in respiratory tract, part unspecified causing asphyxiation, subsequent encounter (7) Cognitive dysfunction: (8) Dysarthria: (9) Hx of aortic valve replacement, mechanical: (10) Chronic anticoagulation: (11) Obesity with body mass index (BMI) of 35.0 to 39.9 without comorbidity: (12) Multiple rib fractures: QUALIFIERS: Encounter type: subsequent encounter Fracture type: closed Laterality: right (13) CML (chronic myelocytic leukemia): (14) Hyperlipidemia: QUALIFIERS: Hyperlipidemia type: unspecified Qualified Code(s): E78.5 - Hyperlipidemia, unspecified (15) Hypothyroidism: QUALIFIERS: Hypothyroidism type: acquired Qualified Code(s): E03.9 - Hypothyroidism, unspecified (16) BPH (benign prostatic hyperplasia): QUALIFIERS: Lower urinary tract symptom presence: unspecified whether lower urinary tract symptoms present Qualified Code(s): N40.0 - Benign prostatic hyperplasia without lower urinary tract symptoms (17) Complicated UTI (urinary tract infection): PLAN: Plan 1. Continue therapy 2. Add magnesium chloride 128 mg daily to the current drug regimen and recheck magnesium as an outpatient. Would prefer to keep his magnesium 2 or greater with history of atrial fibrillation. 3. Planning discharge for to home. 4. Recheck INR in a.m. continue Lovenox until the INR is greater than 2 and then discontinue. Charges/Coding Visit Charges Inpatient E&M: 78987 Subs Hosp L1
[2025-03-04] MEDS: Warfarin (PBKC) 4 MG Tablet PO (16:22)
[2025-03-04] MEDS: Magnesium Chloride 64 MG Delay Rel.Tablet 128 MG PO (16:24)
[2025-03-04 16:53] VITALS: BMI 29.3
[2025-03-04 17:29] VITALS: BP 126/66; PULSE 89; RESP 16; TEMP 36.8; O2SAT 96
[2025-03-04 21:35] VITALS: BP 127/54; PULSE 67; BMI 29.3
[2025-03-04 21:40] VITALS: BP 127/54; PULSE 65
[2025-03-04] MEDS: MELATONIN 3 MG TABLET PO (21:44)
[2025-03-05 06:00] VITALS: BP 135/57; PULSE 59; RESP 16; TEMP 36.4; O2SAT 97; BMI 29.2
[2025-03-05] MEDS: Aspirin E.C. 81 MG Tablet PO (07:45)
[2025-03-05 08:16] LABS: Prothrombin Time (Protime)PT. 26.8 SECONDS (11.7-14.9)
[2025-03-05] MEDS: Lactobacillis Acidophilus 1 CAP PO ×2 (09:43→20:51)
[2025-03-05] MEDS: Magnesium Chloride 64 MG Delay Rel.Tablet 128 MG PO (09:45)
[2025-03-05] MEDS: NILOTINIB HCL 150 MG 300 MG PO ×2 (09:46→20:50)
[2025-03-05 10:00] VITALS: PULSE 68
[2025-03-05 10:04] VITALS: BP 120/67; PULSE 74
[2025-03-05] MEDS: Warfarin (PBKC) 4 MG Tablet PO (16:39)
[2025-03-05 17:00] VITALS: BMI 29.2
[2025-03-05 18:00] VITALS: BP 135/54; PULSE 63; RESP 17; TEMP 36.6; O2SAT 99
[2025-03-05 20:45] VITALS: BP 119/58; PULSE 74; RESP 17; O2SAT 99; BMI 29.2
[2025-03-05] MEDS: MELATONIN 3 MG TABLET PO (20:51)
[2025-03-05 20:55] VITALS: BP 119/58; PULSE 74
[2025-03-06 05:42] VITALS: BP 132/51; PULSE 50; RESP 16; TEMP 36.3; O2SAT 97
[2025-03-06 06:00] VITALS: BMI 29.2
[2025-03-06 07:53] VITALS: PULSE 70; RESP 16; O2SAT 98
[2025-03-06] MEDS: Lactobacillis Acidophilus 1 CAP PO ×2 (08:23→22:10)
[2025-03-06] MEDS: NILOTINIB HCL 150 MG 300 MG PO ×2 (08:24→22:13)
[2025-03-06] MEDS: Aspirin E.C. 81 MG Tablet PO (08:24)
[2025-03-06] MEDS: Magnesium Chloride 64 MG Delay Rel.Tablet 128 MG PO (08:24)
[2025-03-06 08:25] VITALS: PULSE 50
--- NOTE | 2025-03-06 10:29 | PCM.PROGNOTE ---
Subjective Subjective Afebrile VSS -pulse over the past 24 hours has ranged from 50-74. He denies lightheadedness. The blood pressure has ranged from 120/67 to 135/54. Maintaining appropriate oxygen saturation on RA Oral intake - FOOD good FLUIDS good Discussed with nursing - no problems that need addressed Reviewed the THERAPY notes Medication list reviewed. Objective Data Objective Data Vital Signs: Vital Signs Temp Pulse Resp BP Pulse Ox O2 Del Method 97.4 F L 50 L 16 132/51 H 98 Room Air 03/06/25 05:42 03/06/25 08:25 03/06/25 07:53 03/06/25 05:42 03/06/25 07:53 03/06/25 07:53 Oxygen Delivery Method Room Air Weight: 203 lb 14.841 oz Body Mass Index (BMI) 29.2 Intake & Output: Intake and Output for Last 24 Hours 03/04/25 03/05/25 03/06/25 23:59 23:59 23:59 Intake Total 1840 / 1840 1630 / 1630 435 / 435 Output Total 2200 / 2200 2345 / 2345 200 / 200 Balance -360 / -360 -715 / -715 235 / 235 Lab / Micro Data 03/06/25 11:05 03/04/25 05:44 Micro: Microbiology 02/25/25 14:29 Urine, Clean Catch Urine Culture - Final Enterobacter cloacae complex 02/26/25 17:08 Mucosa - Nose Influenza & RSV (PCR) - Final 02/17/25 18:20 Stool Stool Occult Blood (TRANG) - Final Rhythm Strip Rhythm Strip: Irregular Rate: 82 Physical Exam Const alert, oriented x3 and no apparent distress Constitutional Narrative: Sitting in the recliner at the bedside. Very alert, pleasant and appropriate. General Appearance: cooperative HEENT normocephalic, head/scalp atraumatic and moist oral mucous membranes Eyes PERRL and EOMs intact bilaterally Eyes Narrative: No visual field cuts. No discharge from the eyes, no scleral icterus and no conjunctival injection. Neck supple Resp normal respiratory effort, normal air movement and clear to auscultation bilaterally Resp Narrative: No coughing with a deep breath. Effort and Inspection: Negative for tachypneic or respiratory distress Cardio no rub and no gallops Cardio Narrative: Heart rate is irregular with a controlled ventricular response. GI normal to inspection, nondistended, normoactive bowel sounds, soft to palpation and non-tender GI Narrative: No guarding with palpation. Tells me he is having regular bowel movements. Extremity no calf tenderness General Extremity: Negative for edema Skin Rashes: no rashes Neuro Neuro Narrative: no drift with the RUE or RLE now. Speech is clear and easily understood. Voice is projecting well. No ataxia. Still with a mild flattening of the R nasolabial fold(chronic since his last stroke) Psych affect normal Psych Narrative: Engaged in our conversation and making good eye contact. Sleeping well at night. Good appetite and intake. Appearance: appropriate Assessment & Plan Assessment/Plan (1) Debility: (2) Embolic stroke: QUALIFIERS: Precerebral and cerebral artery: unspecified cerebral artery Qualified Code(s): I63.40 - Cerebral infarction due to embolism of unspecified cerebral artery (3) Coronary artery disease status post coronary stent insertion: (4) Right hemiparesis: (5) Dysphagia: QUALIFIERS: Dysphagia type: oropharyngeal phase Qualified Code(s): R13.12 - Dysphagia, oropharyngeal phase (6) Silent aspiration: QUALIFIERS: Encounter type: subsequent encounter Qualified Code(s): T17.900D - Unspecified foreign body in respiratory tract, part unspecified causing asphyxiation, subsequent encounter (7) Cognitive dysfunction: (8) Dysarthria: (9) Hx of aortic valve replacement, mechanical: (10) Chronic anticoagulation: (11) Multiple rib fractures: QUALIFIERS: Encounter type: subsequent encounter Fracture type: closed Laterality: right (12) CML (chronic myelocytic leukemia): (13) Hyperlipidemia: QUALIFIERS: Hyperlipidemia type: unspecified Qualified Code(s): E78.5 - Hyperlipidemia, unspecified (14) Hypothyroidism: QUALIFIERS: Hypothyroidism type: acquired Qualified Code(s): E03.9 - Hypothyroidism, unspecified (15) BPH (benign prostatic hyperplasia): QUALIFIERS: Lower urinary tract symptom presence: unspecified whether lower urinary tract symptoms present Qualified Code(s): N40.0 - Benign prostatic hyperplasia without lower urinary tract symptoms (16) Complicated UTI (urinary tract infection): (17) Acute renal failure (ARF): QUALIFIERS: Acute renal failure type: unspecified Qualified Code(s): N17.9 - Acute kidney failure, unspecified (18) Orthostatic hypotension: PLAN: Plan 1. Continue therapy today 2. Plan discharge home tomorrow 3. Check a PTT/INR now. The INR was 2.4 yesterday and he received 4 mg of warfarin. Lovenox was discontinued yesterday. Recheck a PTT/INR in the AM. 4. HH today Charges/Coding Visit Charges Inpatient E&M: 88435 [facility] Hosp L1
[2025-03-06 11:14] LABS: Hematocrit 34.2 % (40-54); Hemoglobin 11.1 g/dL (13.0-16.5)
[2025-03-06 11:24] LABS: Prothrombin Time (Protime)PT. 29.4 SECONDS (11.7-14.9)
--- NOTE | 2025-03-06 11:52 | DCINST_ITS ---
Discharge Instructions
--- NOTE | 2025-03-06 11:52 | PCM.DC ---
Discharge Instructions DC O2, CPAP, BIPAP needs Home O2 Discharge instructions: No Dressing / Incision Discharge Activity: May Shower and Use Walker May resume sexual activity in: No Restrictions Weight Bearing Status: Full weight bearing Keep extremity elevated above heart level: Legs Dressing / Incision Call your doctor if you observe: Fever of 101 or Higher, Inability to urinate, Shortness of breath, Dizziness, Fainting spells, Swelling in the ankles, Chest pain, Increased palpitations (irregular heartbeat), Calf discomfort, Uncontrolled pain and - (STROKE symptoms: facial droop, slurred speech, inability to get words out, weakness on 1 side of the body and not the other, numbness on 1 side of the body and not the other, inability to maintain your balance sitting or standing, vertigo. ) Follow Up Care Please Follow Up With: [place] clinic When: Will need appts with PCP and with neurology Test Results: Test results from this visit will be discussed in further detail at your follow-up appointment, if applicable. Pending Tests Upon Discharge: none Discharge Plan Admission Admit Date/Time: 02/13/25 16:17 Primary Reason for Your Visit: POST STROKE DEBILITY Attending Provider: Joi Jara Primary Care Provider: [facility],[place] Consulting Providers: Anthony Myers Chi Instructions Patient Instructions: Discharge Instructions for Stroke Additional Instructions / Restrictions: 1. Your bleeding time on the day of DC is 2.6 which is right where we would like it. When you had the urinary tract infection and you were not eating the INR went up to 5 and we had to give you a small dose of Vitamin K to reverse the high INR. THEN the INR was low for a few days......this is expected after Vitamin K. The INR is now stable and you will continue taking 4 mg daily. 2. I have sent the new Prescriptions to your pharmacy. I know you probably still have some of the old chronic prescriptions at home but, I wrote out Prescriptions for some of the meds so that if you are out or low you can take the prescription to the pharmacy to be filled. If you are missing a medication just call me and I will refill. 3. You will need to take 3 additional doses of the antibiotic after you leave rehab. When all 3 are gone you can stop the medication. You periodically get urinary tract infections (UTI)........not uncommon in men with prostate problems. The symptoms for a UTI are burning with urination, increased frequency of urination, urgency with urination, sometimes incontinence, change in mental status,/confusion, nausea, decreased appetite, sometimes vomiting, fever, shaking chils, night sweats and sometimes back pain. If you have any of these symptoms you should see a doctor. 4. You have done very well on rehab and I think you will be fine at home. You will need additional therapy and the social security specialist has arranged for you to get home health care. 5. You are not diabetic. Your BP is well controlled. Your cholesterol is well controlled. 6. you were having a chronic cough when you arrived on rehab. One of the medications you were taking (Lisinopril) is known to cause cough in some people. We changed the medication to a similar drug (Cozaar/Losartan) which is less likely to cause a cough. Your cough is better on the Cozaar so we are continuing this at discharge. 7. You are on 3 medications that can potentially cause bleeding in the gastrointestinal tract. Warfarin, aspirin and Plavix (also called clopidogrel). You will need to stay on all of these medications for 1 year after the stent was placed. After 1 year you will likely be able to discontinue either aspirin or Plavix and continue on only 1 of those agents. 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 If you see any red blood in your stool, you vomit blood, you have black/tarry colored stool or you have nausea and stomach pain please call your PCP to be seen. We checked your stool for blood while you were on rehab and there was no blood in the stool. 8. If you have any questions after you leave rehab please do not hesitate to call me. OFFICE: [phone] CELL: [phone] NURSES STATION ON REHAB: [phone] Discharge Orders/Prescriptions Prescriptions: New atorvastatin 80 mg Tablet 80 mg PO QHS Qty: 30 0RF cefdinir 300 mg Capsule 300 mg PO Q12 Qty: 3 0RF Rx Instructions: This is the antibiotic. Discontinue after 3 doses. furosemide 40 mg Tablet 40 mg PO Q48H Qty: 20 0RF Rx Instructions: Take 1 tab EVERY OTHER DAY losartan 25 mg Tablet 25 mg PO DAILY Qty: 30 0RF metoprolol tartrate 25 mg Tablet 12.5 mg PO BID Qty: 30 0RF Rx Instructions: Tale 1/2 tab twice a day. AM and bedtime. magnesium chloride [Mag 64] 64 mg Tablet,Delayed Release (Dr/Ec) 128 mg PO DAILY Qty: 30 0RF ascorbic acid (vitamin C) [Vitamin C] 1,000 mg tablet 1,000 mg PO DAILY Qty: 30 0RF Rx Instructions: Take this WITH the iron tablet. It improves absorption warfarin 4 mg tablet 4 mg PO DAILY Qty: 30 0RF Continued isosorbide mononitrate 30 MG tablet 30 mg PO DAILY Patient Comments: Heart allopurinol 100 MG tablet 100 mg PO DAILYCM levothyroxine 25 MCG tablet 50 [place] 0600 pantoprazole 40 MG tablet 40 mg PO BID Patient Comments: stomach ferrous sulfate 325 MG tablet 325 mg PO DAILY gabapentin 300 MG capsule 300 mg PO DAILY tamsulosin 0.4 mg capsule 0.4 mg PO DAILY clopidogrel [Plavix] 75 mg tablet 75 mg PO DAILY Qty: 30 0RF oxycodone 5 mg tablet 5 mg PO Q4H PRN (Reason: pain) 7 Days Qty: 14 0RF aspirin [Adult Aspirin Regimen] 81 mg tablet,delayed release (DR/EC) 81 mg PO DAILY acetaminophen 325 mg Tablet 650 mg PO Q6H PRN PRN (Reason: Pain 1-10 Or Fever>100.7) Qty: 0 0RF menthol [Blue Gel] 2 % Gel 1 applic topical 4X/DAY PRN PRN (Reason: Pain Score 1-10) Qty: 0 0RF nilotinib HCl [Tasigna] 150 mg Capsule 300 mg PO BID Qty: 0 0RF Discontinued warfarin [Jantoven] 4 MG tablet 4 mg PO DAILY atorvastatin 40 MG tablet 80 mg PO DAILY metoprolol tartrate 25 MG tablet 25 mg PO DAILY furosemide 40 mg Tablet 40 mg PO DAILY lisinopril 10 mg tablet 10 mg PO DAILY Ensure Plus High Protein 0.08 gram-1.5 kcal/mL Liquid 120 ml PO TIDCM Qty: 1 0RF sennosides-docusate sodium [Stimulant Laxative Plus] 8.6-50 mg Tablet 2 tab PO BID Qty: 1 0RF Disposition Disposition (needs filled in before D/C Order can be placed): Home Health Service
[2025-03-06 16:40] VITALS: BP 128/66; PULSE 60; RESP 17; TEMP 36.6; O2SAT 96
[2025-03-06 17:00] VITALS: BMI 29.2
[2025-03-06] MEDS: Warfarin (PBKC) 4 MG Tablet PO (17:51)
[2025-03-06] MEDS: MELATONIN 3 MG TABLET PO (22:10)
[2025-03-06 22:11] VITALS: BP 135/54; PULSE 62
[2025-03-07 02:03] VITALS: BMI 29.2
[2025-03-07 06:00] VITALS: BP 117/55; PULSE 57; RESP 17; TEMP 36.7; O2SAT 94; BMI 28.5
[2025-03-07 08:04] LABS: Prothrombin Time (Protime)PT. 28.5 SECONDS (11.7-14.9)
[2025-03-07] MEDS: Magnesium Chloride 64 MG Delay Rel.Tablet 128 MG PO (08:32)
[2025-03-07 08:33] VITALS: BP 125/49; PULSE 62
[2025-03-07] MEDS: Aspirin E.C. 81 MG Tablet PO (08:33)
[2025-03-07] MEDS: Lactobacillis Acidophilus 1 CAP PO (08:33)
[2025-03-07] MEDS: NILOTINIB HCL 150 MG 300 MG PO (08:34)
--- NOTE | 2025-03-07 08:50 | NURSING ---
left 2nd message for Pietro RN at [facility] to get pt a PCP and Neurology appointment
--- NOTE | 2025-03-07 09:37 | EX.DISCHREH ---
Providers Date of Admission: 02/13/25 Date of Discharge: 03/07/25 Primary Care Physician: [facility] Reason For Visit: STROKE Diagnosis Discharge Diagnosis (1) Debility: Status: Acute Code(s): R53.81 - Other malaise (2) Embolic stroke: Status: Acute Code(s): I63.9 - Cerebral infarction, unspecified Qualifiers: Precerebral and cerebral artery: unspecified cerebral artery Qualified Code(s): I63.40 - Cerebral infarction due to embolism of unspecified cerebral artery Plan: Following PTCA (3) Coronary artery disease status post coronary stent insertion: Status: Acute Code(s): I25.10 - Atherosclerotic heart disease of [place] coronary artery without angina pectoris; Z95.5 - Presence of coronary angioplasty implant and graft (4) Right hemiparesis: Status: Acute Code(s): G81.91 - Hemiplegia, unspecified affecting right dominant side (5) Dysphagia: Status: Chronic Code(s): R13.10 - Dysphagia, unspecified Qualifiers: Dysphagia type: oropharyngeal phase Qualified Code(s): R13.12 - Dysphagia, oropharyngeal phase Plan: He is a silent aspirator and refuses thickened liquids. (6) Silent aspiration: Status: Acute Code(s): T17.900A - Unspecified foreign body in respiratory tract, part unspecified causing asphyxiation, initial encounter Qualifiers: Encounter type: subsequent encounter Qualified Code(s): T17.900D - Unspecified foreign body in respiratory tract, part unspecified causing asphyxiation, subsequent encounter (7) Cognitive dysfunction: Status: Acute Code(s): F09 - Unspecified mental disorder due to known physiological condition (8) Dysarthria: Status: Acute Code(s): R47.1 - Dysarthria and anarthria Plan: Much improved at DC from rehab. (9) Hx of aortic valve replacement, mechanical: Status: Chronic Code(s): Z95.2 - Presence of prosthetic heart valve (10) Chronic anticoagulation: Status: Chronic Code(s): Z79.01 - shelter (current) use of anticoagulants Plan: Warfarin. INR at DC from rehab is 2.6 on 4 mg daily. (11) Multiple rib fractures: Status: Acute Code(s): S22.49XA - Multiple fractures of ribs, unspecified side, initial encounter for closed fracture Qualifiers: Encounter type: subsequent encounter Fracture type: closed Laterality: right Plan: Right 7th, 8th, 9th and 10th ribs which are slightly displaced. Sustained in a fall prior to admission to rehab. (12) CML (chronic myelocytic leukemia): Status: Chronic Code(s): C92.10 - Chronic myeloid leukemia, BCR/ABL-positive, not having achieved remission (13) Hyperlipidemia: Status: Chronic Code(s): E78.5 - Hyperlipidemia, unspecified Qualifiers: Hyperlipidemia type: unspecified Qualified Code(s): E78.5 - Hyperlipidemia, unspecified Plan: LDL was 48 on 02/07/2025. (14) Hypothyroidism: Status: Chronic Code(s): E03.9 - Hypothyroidism, unspecified Qualifiers: Hypothyroidism type: acquired Qualified Code(s): E03.9 - Hypothyroidism, unspecified Plan: Multinodular Gorder on imaging. (15) BPH (benign prostatic hyperplasia): Status: Chronic Code(s): N40.0 - Benign prostatic hyperplasia without lower urinary tract symptoms Qualifiers: Lower urinary tract symptom presence: unspecified whether lower urinary tract symptoms present Qualified Code(s): N40.0 - Benign prostatic hyperplasia without lower urinary tract symptoms Plan: Continue Flomax 0.4 mg daily. (16) Complicated UTI (urinary tract infection): Status: Resolved Code(s): N39.0 - Urinary tract infection, site not specified Plan: Secondary to Enterobacter cloacae. (17) Acute renal failure (ARF): Status: Resolved Qualifiers: Acute renal failure type: unspecified Qualified Code(s): N17.9 - Acute kidney failure, unspecified Plan: Secondary to intravascular volume depletion related to poor appetite due to urinary tract infection. Resolved with hydration. (18) Orthostatic hypotension: Status: Resolved Code(s): I95.1 - Orthostatic hypotension Plan: Secondary to intravascular volume depletion. Plan 1. Continue therapy today 2. Plan discharge home tomorrow 3. Check a PTT/INR now. The INR was 2.4 yesterday and he received 4 mg of warfarin. Lovenox was discontinued yesterday. Recheck a PTT/INR in the AM. 4. HH today Medications at Discharge Home Medications allopurinol 100 mg tablet 100 mg PO DAILYCM gout 04/04/16 ferrous sulfate 325 mg (65 mg iron) tablet 325 mg PO DAILY supplement 04/04/16 isosorbide mononitrate 30 mg tablet,extended release 24 hr 30 mg PO DAILY chest pain 04/04/16 levothyroxine 25 mcg tablet 50 mcg PO 0600 thyroid 04/04/16 pantoprazole 40 mg tablet,delayed release 40 mg PO BID reflux 04/04/16 gabapentin 300 mg capsule 300 mg PO DAILY nerve pain 01/10/20 tamsulosin 0.4 mg capsule 0.4 mg PO DAILY prostate 07/09/22 aspirin 81 mg tablet,delayed release (Adult Aspirin Regimen) 81 mg PO DAILY Heart health 02/06/25 acetaminophen 325 mg tablet 650 mg (2 x 325 mg) PO Q6H PRN PRN Pain 1-10 Or Fever>100.7 #0 tabs 02/13/25 menthol 2 % topical gel (Blue Gel) 1 applic topical 4X/DAY PRN PRN Pain Score 1-10 #0 grams 02/13/25 nilotinib HCl 150 mg capsule (Tasigna) 300 mg (2 x 150 mg) PO BID CML #0 caps 02/13/25 ascorbic acid (vitamin C) 1,000 mg tablet (Vitamin C) 1,000 mg PO DAILY #30 tabs 03/06/25 atorvastatin 80 mg tablet 80 mg PO QHS #30 tabs 03/06/25 cefdinir 300 mg capsule 300 mg PO Q12 #3 caps 03/06/25 clopidogrel 75 mg tablet (Plavix) 75 mg PO DAILY Blood thinner #30 tabs 03/06/25 furosemide 40 mg tablet 40 mg PO Q48H #20 tabs 03/06/25 losartan 25 mg tablet 25 mg PO DAILY #30 tabs 03/06/25 magnesium chloride 64 mg (magnesium chloride) tablet,delayed release (Mag 64) 128 mg (2 x 64 mg) PO DAILY #30 tabs 03/06/25 metoprolol tartrate 25 mg tablet 12.5 mg (1/2 x 25 mg) PO BID #30 tabs 03/06/25 oxycodone 5 mg tablet 5 mg PO Q4H PRN pain 1 week #14 tabs 03/06/25 warfarin 4 mg tablet 4 mg PO DAILY #30 tabs 03/07/25 Physical Exam Const alert, oriented x3 and no apparent distress Constitutional Narrative: Sitting in the recliner at the bedside. Very alert, pleasant and appropriate. General Appearance: cooperative HEENT normocephalic, head/scalp atraumatic and moist oral mucous membranes Eyes PERRL and EOMs intact bilaterally Eyes Narrative: No visual field cuts. No discharge from the eyes, no scleral icterus and no conjunctival injection. Neck supple Resp normal respiratory effort, normal air movement and clear to auscultation bilaterally Resp Narrative: No coughing with a deep breath. Effort and Inspection: Negative for tachypneic or respiratory distress Cardio no rub and no gallops Cardio Narrative: Heart rate is irregular with a controlled ventricular response. GI normal to inspection, nondistended, normoactive bowel sounds, soft to palpation and non-tender GI Narrative: No guarding with palpation. Tells me he is having regular bowel movements. Extremity no calf tenderness General Extremity: Negative for edema Skin Rashes: no rashes Neuro Neuro Narrative: no drift with the RUE or RLE now. Speech is clear and easily understood. Voice is projecting well. No ataxia. Still with a mild flattening of the R nasolabial fold(chronic since his last stroke) Psych affect normal Psych Narrative: Engaged in our conversation and making good eye contact. Sleeping well at night. Good appetite and intake. Appearance: appropriate Weight / BMI Weight Weight: 199 lb 8 oz Body Mass Index (BMI) 28.5 ABG / Lab / Microbiology Data 03/06/25 11:05 03/04/25 05:44 Laboratory: Laboratory Results - last 24 hr 03/06/25 11:05: Hgb 11.1 L, Hct 34.2 L, PT 29.4 H, INR 2.7 03/07/25 07:19: PT 28.5 H, INR 2.6 Microbiology: Microbiology 02/25/25 14:29 Urine, Clean Catch Urine Culture - Final Enterobacter cloacae complex 02/26/25 17:08 Mucosa - Nose Influenza & RSV (PCR) - Final 02/17/25 18:20 Stool Stool Occult Blood (TRANG) - Final Indicators for Scoring Admitted with or Primary Diagnosis of CVA/Stroke: Yes Hx of CVA/Stroke: Yes Modified Anchor Score MRS Score at time of Evaluation: 2-Slight disability NIHSS NIHSS 1a. Level of Consciousness: 0 - Alert; keenly responsive 1b. LOC Questions: 0 - Answers BOTH questions correctly 1c. LOC Commands: 0 - Performs BOTH tasks correctly 2. Best Gaze: 0 - Normal 3. Visual: 0 - No visual loss 4. Facial Palsy: 1 - Minor paralysis (flattened nasolabial fold, asymmetry on smiling) 5a. Left Arm: 0 - No drift; arm holds 90 (or 45) degrees for full 10 seconds 5b. Right Arm: 0 - No drift; arm holds 90 (or 45) degrees for full 10 seconds (No drift on the right however right arm is weaker than the left and he is right-hand dominant. Also has a weak shoulder shrug on the right.) 6a. Left Le - No drift; leg holds 30-degree position for full 5 seconds 6b. Right Le - No drift; leg holds 30-degree position for full 5 seconds (The right leg is weaker than the left but he has no drift.) 7. Limb Ataxia: 0 - Absent 8. Sensory: 0 - Normal; no sensory loss 9. Best Language: 0 - No aphasia; normal 10. Dysarthria: 0 - Normal 11. Extinction and Inattention: 0 - No abnormality Total: 1 (NIH was 3 at presentation to rehab.) Stroke Questions Stroke Team Activated: No D/C Instructions Diet Diet Order/Speech Therapy: INPATIENT Hospital Diet / Speech Therapy Order(s) 02/19/25 09:18 Diet: Sodium Restricted (MOD) Food consistency:: Easy to Chew Liquid Consistency:: Regular/Thin Speech Therapy Comments: NO STRAWS, Dist supervision, no onion Discharge order: Continue INPATIENT Hospital Diet / Speech Therapy Orders: Yes May resume sexual activity in: No Restrictions Weight Bearing Status: Full weight bearing Keep extremity elevated above heart level: Legs Call your doctor if you observe: Fever of 101 or Higher, Inability to urinate, Shortness of breath, Dizziness, Fainting spells, Swelling in the ankles, Chest pain, Increased palpitations (irregular heartbeat), Calf discomfort, Uncontrolled pain and - (STROKE symptoms: facial droop, slurred speech, inability to get words out, weakness on 1 side of the body and not the other, numbness on 1 side of the body and not the other, inability to maintain your balance sitting or standing, vertigo. ) DC O2, CPAP, BIPAP Needs Home O2 Discharge instructions: No Pending Tests Upon Discharge: none Please Follow Up With: OR clinic When: Will need appts with PCP and with neurology Meaningful Use Info Meaningful Use Meaningful Use Diagnoses (Choose all that apply): Ischemic CVA CVA Therapy Assessed for PT,OT and/or ST?: Yes Ischemic Stroke Antithrombotic order at d/c?: Yes Dx of Atrial fib/flutter?: Yes Anticoagulant at discharge?: Yes Statin Dosing Therapy Reference: STATIN DOSE THERAPY REFERENCE: * Patients > 75 years receive moderate or high dose statin therapy. * Patients 75 years or YOUNGER should receive HIGH intensity statin dose unless contraindicated. You will be required to document reason for non-treatment if statin daily dose does not meet guidelines. HIGH DOSE STATIN THERAPY DAILY Atorvastatin > than or = to 40 mg Rosuvastatin > than or = to 20 mg Amlodipine + Atorvastatin > than or = to 2.5/40 mg Ezetimibe + Simvastatin 10/80 mg Simvastatin 80mg Statins at discharge?: Yes Primary Dx Acute Ischemic CVA?: Yes IV thrombolytic ordered during stay?: No Reason IV thrombolytic not ordered: Procedure not Indicated Discharge Plan Admission Admit Date/Time: 02/13/25 16:17 Primary Reason for Your Visit: POST STROKE DEBILITY Attending Provider: Joi Jara Primary Care Provider: [facility] Consulting Providers: Anthony Myers Chi Instructions Patient Instructions: Discharge Instructions for Stroke Additional Instructions / Restrictions: 1. Your bleeding time on the day of DC is 2.6 which is right where we would like it. When you had the urinary tract infection and you were not eating the INR went up to 5 and we had to give you a small dose of Vitamin K to reverse the high INR. THEN the INR was low for a few days......this is expected after Vitamin K. The INR is now stable and you will continue taking 4 mg daily. 2. I have sent the new Prescriptions to your pharmacy. I know you probably still have some of the old chronic prescriptions at home but, I wrote out Prescriptions for some of the meds so that if you are out or low you can take the prescription to the pharmacy to be filled. If you are missing a medication just call me and I will refill. 3. You will need to take 3 additional doses of the antibiotic after you leave rehab. When all 3 are gone you can stop the medication. You periodically get urinary tract infections (UTI)........not uncommon in men with prostate problems. The symptoms for a UTI are burning with urination, increased frequency of urination, urgency with urination, sometimes incontinence, change in mental status,/confusion, nausea, decreased appetite, sometimes vomiting, fever, shaking chils, night sweats and sometimes back pain. If you have any of these symptoms you should see a doctor. 4. You have done very well on rehab and I think you will be fine at home. You will need additional therapy and the food preparation worker has arranged for you to get home health care. 5. You are not diabetic. Your BP is well controlled. Your cholesterol is well controlled. 6. you were having a chronic cough when you arrived on rehab. One of the medications you were taking (Lisinopril) is known to cause cough in some people. We changed the medication to a similar drug (Cozaar/Losartan) which is less likely to cause a cough. Your cough is better on the Cozaar so we are continuing this at discharge. 7. You are on 3 medications that can potentially cause bleeding in the gastrointestinal tract. Warfarin, aspirin and Plavix (also called clopidogrel). You will need to stay on all of these medications for 1 year after the stent was placed. After 1 year you will likely be able to discontinue either aspirin or Plavix and continue on only 1 of those agents. Your journalism instructor will discuss this with you. If you see any red blood in your stool, you vomit blood, you have black/tarry colored stool or you have nausea and stomach pain please call your PCP to be seen. We checked your stool for blood while you were on rehab and there was no blood in the stool. 8. If you have any questions after you leave rehab please do not hesitate to call me. OFFICE: [phone] CELL: [phone] NURSES STATION ON REHAB: [phone] Discharge Orders/Prescriptions Prescriptions: New atorvastatin 80 mg Tablet 80 mg PO QHS Qty: 30 0RF cefdinir 300 mg Capsule 300 mg PO Q12 Qty: 3 0RF Rx Instructions: This is the antibiotic. Discontinue after 3 doses. furosemide 40 mg Tablet 40 mg PO Q48H Qty: 20 0RF Rx Instructions: Take 1 tab EVERY OTHER DAY losartan 25 mg Tablet 25 mg PO DAILY Qty: 30 0RF metoprolol tartrate 25 mg Tablet 12.5 mg PO BID Qty: 30 0RF Rx Instructions: Tale 1/2 tab twice a day. AM and bedtime. magnesium chloride [Mag 64] 64 mg Tablet,Delayed Release (Dr/Ec) 128 mg PO DAILY Qty: 30 0RF ascorbic acid (vitamin C) [Vitamin C] 1,000 mg tablet 1,000 mg PO DAILY Qty: 30 0RF Rx Instructions: Take this WITH the iron tablet. It improves absorption warfarin 4 mg tablet 4 mg PO DAILY Qty: 30 0RF Continued isosorbide mononitrate 30 MG tablet 30 mg PO DAILY Patient Comments: Heart allopurinol 100 MG tablet 100 mg PO DAILYCM levothyroxine 25 MCG tablet 50 m[place] PO 0600 pantoprazole 40 MG tablet 40 mg PO BID Patient Comments: stomach ferrous sulfate 325 MG tablet 325 mg PO DAILY gabapentin 300 MG capsule 300 mg PO DAILY tamsulosin 0.4 mg capsule 0.4 mg PO DAILY clopidogrel [Plavix] 75 mg tablet 75 mg PO DAILY Qty: 30 0RF oxycodone 5 mg tablet 5 mg PO Q4H PRN (Reason: pain) 7 Days Qty: 14 0RF aspirin [Adult Aspirin Regimen] 81 mg tablet,delayed release (DR/EC) 81 mg PO DAILY acetaminophen 325 mg Tablet 650 mg PO Q6H PRN PRN (Reason: Pain 1-10 Or Fever>100.7) Qty: 0 0RF menthol [Blue Gel] 2 % Gel 1 applic topical 4X/DAY PRN PRN (Reason: Pain Score 1-10) Qty: 0 0RF nilotinib HCl [Tasigna] 150 mg Capsule 300 mg PO BID Qty: 0 0RF Discontinued warfarin [Jantoven] 4 MG tablet 4 mg PO DAILY atorvastatin 40 MG tablet 80 mg PO DAILY metoprolol tartrate 25 MG tablet 25 mg PO DAILY furosemide 40 mg Tablet 40 mg PO DAILY lisinopril 10 mg tablet 10 mg PO DAILY Ensure Plus High Protein 0.08 gram-1.5 kcal/mL Liquid 120 ml PO TIDCM Qty: 1 0RF sennosides-docusate sodium [Stimulant Laxative Plus] 8.6-50 mg Tablet 2 tab PO BID Qty: 1 0RF Disposition Disposition (needs filled in before D/C Order can be placed): Home Health Service Charges/Coding Visit Charges Inpatient E&M: 21327 Disch Hosp >30min Hospital Course RU Operations None Procedures - (PTCA with drug-eluting stent at previous hospital prior to rehab transfer.) Summary of Care Provided Minutes Spent on Discharge: 55 Hospital Course: Juaquin Jimenez is a 79-year-old male who underwent a left heart catheterization with KWAME placement to the LAD on 02/05/2025 at [facility]. While at the [facility] he underwent a transesophageal echocardiogram that showed an EF of 55%, mild aortic valve regurgitation and no definitive evidence of mobile echodensity. He was discharged from [facility] on 02/05/25 and it took multiple family members to get him into the car. His stated he was leaning heavily to the R side while seated in the car. On the morning of 02/06/2025 he had persistent right lower extremity weakness and problems with balance. He presented to the [facility] emergency department on 02/06/2025 in the afternoon to be evaluated. NIHSS was 6 in the ED per the emergency room physician. Systolic blood pressure was elevated in the 180s at presentation to the emergency department. Stat CT brain was negative for acute findings but it did show a left frontotemporal encephalomalacia from a previous stroke. Teleneurology was consulted and they felt his NIHSS 7. They recommended a CTA to rule out large vessel occlusion followed by an MRI without contrast and a transthoracic echocardiogram. He was admitted to the hospitalist service. INR at presentation to the emergency department was subtherapeutic at 1.5. It remained subtherapeutic until 02/10/2025 when it was 2.5. While it was subtherapeutic he was maintained on a Lovenox bridge. The MRI showed scattered small foci of acute infarct in the left yancy, posterior left frontal guallpa radiata and bilateral occipital lobes. There was chronic encephalomalacia and gliosis in the left frontal opercular region and left basal ganglia secondary to prior stroke. CTA of the head and neck showed no acute arterial abnormality. Incidental finding was a multinodular goiter. He was seen by PT/OT/ST and acute rehab was recommended. Prior to DC from the hospital he c/o R chest pain (he had a fall onto his R side prior to coming to the ED while using a FWW). Right rib x-rays showed fracture of the anterior margin of the right 7th, 8th, 9th and 10th ribs which were slightly displaced. There was also a cortical irregularity noted at the right humeral head and neck junction (he has a hx of an old humeral fracture). Dedicated x-ray of the humerus showed an old right humeral neck fracture. He was discharged to the acute inpatient rehab unit at [facility] on 02/13/2025 for 3 hours of therapy daily to restore function/independence at his level prior to the most recent stroke. Complications while on rehab included a complicated urinary tract infection secondary to Enterobacter cloacae. Symptoms included nausea/vomiting/poor appetite/lethargy/ARF (due to dehydration). Due to poor appetite INR went up to 4.5 and he received 5 mg of oral vitamin K. The following day the INR was therapeutic but within goal. Subsequent days he was subtherapeutic and was started on Lovenox until the INR was once again greater than 2. He was initially treated with Levaquin but was transitioned to cefdinir when the urine culture revealed that the Enterobacter cloacae was pansensitive with exception of intermediate sensitivity to nitrofurantoin. After 2 days of Levaquin he felt much better. Received a total of 10 days of antibiotics for a complicated UTI. Renal US was done due to ARF and it showed normal kidneys. The bladder was completely empty. Creatinine on 03/04/2025 was down to 0.71 which is within his baseline. Hemoglobin is stable at 11.1 at the time of discharge from rehab and he had a Hemoccult stool that was negative. Last CBC was on 03/04/2025 and the white blood cell count was normal at 4.5 and platelets were also within normal limits. The differential was normal. He had a MBS while on rehab that showed moderate to severe oropharyngeal dysphagia with silent aspiration of thin and mildly thick liquids. Some of this deficit was likely related to old stroke. He has refused thickened liquids and he has not had frequent episodes of PNA. Juaquin c/o of a chronic cough and was taking Lisinopril for HTN. He was transitioned to losartan and the cough significantly improved. He has an occasional cough but this may be secondary to silent aspiration. He is being discharged on Cozaar. Juaquin did very well in therapy. At the time of discharge his modified Anchor score is 2 which is down from 4 at admission to rehab. He is able to do 10 sit to stands in 30 seconds at standby assist. He has ambulated up to 250 feet with a front wheeled walker and standby assist/mod I. He has ambulated 40 feet with a cane at contact-guard assist. He has initiated 8 steps in the stairwell with 2 handrails at contact-guard assist but, he tells us he will be getting a chairlift at discharge. He is contact-guard assist to min assist to do 3 4 and steps with 1 handrail and a straight cane on the other side. This allows him to enter his home. He is modified independent with eating and independent with grooming. He is independent with upper body dressing but requires minimal assistance for lower body dressing. He needs minimal assistance with bathing, mostly to do his feet. He is supervision/set up for tub/shower transfer. He is mod I with toilet transfer and toileting. Juaquin was discharged of 03/07/2025 and will have [facility] home health care for PT/OT/SN. An appointment was scheduled for him to follow-up with Negrito Wright NP. He will also need to follow up with neurology. DME needs were a 3 in 1 commode. He will need to remain on dual antiplatelet agents for 1 year post PTCA/KWAME unless told otherwise by cardiology.
[2025-03-07 14:50] VITALS: BMI 28.5
[2025-03-07 14:51] VITALS: BP 117/55; PULSE 57; RESP 17; TEMP 36.7; O2SAT 94
--- NOTE | 2025-03-07 14:54 | NURSING ---
discharged home with . discharge instruction, medications and needed appointments reviewed with pt and . denies questions or concerns
== END 2025-03-07 14:56 | disposition home health service (06) | DRG 57 ==
PROVIDERS: Admitting Provider Family Medicine Geriatric Medicine; Referring Provider Family Medicine Geriatric Medicine; Visit Provider Internal Medicine
DX: I69.351 Hemiplegia and hemiparesis following cerebral infarction affecting right dominant side (principal); C92.10 Chronic myeloid leukemia, BCR/ABL-positive, not having achieved remission; I50.32 Chronic diastolic (congestive) heart failure; N39.0 Urinary tract infection, site not specified; I69.322 Dysarthria following cerebral infarction; R13.12 Dysphagia, oropharyngeal phase; B96.89 Other specified bacterial agents as the cause of diseases classified elsewhere; E03.9 Hypothyroidism, unspecified; E04.2 Nontoxic multinodular goiter; D50.9 Iron deficiency anemia, unspecified; I11.0 Hypertensive heart disease with heart failure; G93.89 Other specified disorders of brain; E66.9 Obesity, unspecified; Z95.2 Presence of prosthetic heart valve; K21.9 Gastro-esophageal reflux disease without esophagitis; E78.00 Pure hypercholesterolemia, unspecified; M10.9 Gout, unspecified; M19.90 Unspecified osteoarthritis, unspecified site; G62.9 Polyneuropathy, unspecified; I25.10 Atherosclerotic heart disease of native coronary artery without angina pectoris; I95.1 Orthostatic hypotension; W19.XXXD Unspecified fall, subsequent encounter; I69.392 Facial weakness following cerebral infarction; I69.891 Dysphagia following other cerebrovascular disease; S22.41XD Multiple fractures of ribs, right side, subsequent encounter for fracture with routine healing; Z79.01 Long term (current) use of anticoagulants; Z95.5 Presence of coronary angioplasty implant and graft; Z87.891 Personal history of nicotine dependence; Z79.899 Other long term (current) drug therapy; N40.0 Benign prostatic hyperplasia without lower urinary tract symptoms; Z79.82 Long term (current) use of aspirin; Z79.02 Long term (current) use of antithrombotics/antiplatelets; Z79.890 Hormone replacement therapy; S42.301D Unspecified fracture of shaft of humerus, right arm, subsequent encounter for fracture with routine healing; T17.900D Unspecified foreign body in respiratory tract, part unspecified causing asphyxiation, subsequent encounter; Z68.30 Body mass index [BMI] 30.0-30.9, adult; R32 Unspecified urinary incontinence; R94.31 Abnormal electrocardiogram [ECG] [EKG]
CPT/HCPCS: 36415; 71046; 74230; 76770; 80048; 80053; 81001; 82274; 82962; 83735; 84100; 84145; 84439; 84443; 85014; 85018; 85025; 85027; 85610; 87077; 87086; 87088; 87186; 87631; 92507; 92523; 92526; 92610; 92611; 93005; 97110; 97112; 97116; 97162; 97167; 97530; 97535; 97802; 97803; A4216